=== PATIENT | female | born 1940 | race Caucasian/White ===

== ENCOUNTER 2017-07-26 11:30 | Outpatient (RCR) | payer MEDICARE, SELFPAY ==
--- NOTE | 2017-06-14 17:32 | HP.PTEVAL_ITS ---
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 Date of Evaluation: 06/14/17 Physical Therapist: Eileen Zacarias - Visit Plan Frequency: 2x /Week Duration: 4 Weeks Plan: 2X/ week for 4 weeks for core stability, LE strength, balance activities, gait training, L shoulder strength, postrural exericses with HEP. Will plan on doing Silver Sneakers when done with PT - Subjective Subjective: Pt tripped May 04, 2018 and hit doorknob and got 60 hanna in her head. Were being seen at [facility] for getting her core stronger. She felt that her core was getting stronger and was not having as much back pain. Now since she fell her back is bothering her and her shoulders are bothering her. There is nothing broken, She has 18 screws in L leg from another freak accicent. If she sits down for awhile and then goes to wake up she she has a lot of pain. She still has numbness in her head. She has no leg pain but she has constand pressure in her L leg from previous surgery in 2006. SHe has a fear of tripping on rugs. She feels that her body is in outerspace when she walks. 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 She wants to be stronger and feel better when she walks. She has Silversneakers. She reports that she gets chest tightness when she walks and some SOB. Her PCP just checked her heart. She has FM. Pt lives by herself. Pt reports that her voice is soft, she reports that her legs feel heavy all the time and she just feels tired. She just started taking thyroid meds 2 weeks ago. She has not felt much of a change - Pain backl pain Pain Intensity (Out of 10): 0 - Objective Gait: walks with decreased heel to toe pattern and not as much toe rise. When she turns she scissors and reaches for the wall. FGA: . LE MMT: hip flex B 3+/5, B knee ext 4/5, B knee flex 4-/5, B hip abd 4-/5. Has difficulty with raising her toes. UE AROM: flex and abd to approx 100 degrees B. UE MMT : B ER 4/5, B IR 4/5, B flx 4/5, B abd 4-/5. Negative empty can. Slight + HK for a little pain - Balance Scores Functional Gait Assessment Score: 15 % Disability: 50.0000 - Goals Goal 1:: I HEP Goal Time Frame: 4-6 Weeks Goal 2:: Test pt on the NeuroCOm Goal Time Frame: 4-6 Weeks Goal 3:: Increase LE strength by 1/2 muscle grade (LE MMT: hip flex B 3+/5, B knee ext 4/5, B knee flex 4-/5, B hip abd 4-/5. Has difficulty with raising her toes) Goal Time Frame: 4-6 Weeks Goal 4:: Increase FGA by 5 points to decrease fall risk Goal Time Frame: 4-6 Weeks - Rehabilitation Potential Rehabilitation Potential: Good - Anticipated Interventions Thank you for the opportunity to evaluate your patient. For Medicare and Medicare HMO plans, please review the plan of care and approve it. It will need to be FAXED BACK to us at [phone] for Medicare purposes. Please let me know if there are questions or concerns regarding this plan of care. Physician Signature: Date:
--- NOTE | 2017-07-26 12:51 | HP.PTDCSUM ---
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 Discharge Date: 07/26/17 Please see the following information for a summary of their discharge status. - Subjective Subjective: Pt reports that her back pain is better but she still has trouble sitting for awhile and getting up. Pt reports that stairs are a problem. She reports that her L knee still bothers her since her fall. Pt has an appt with Dr Martinez today. - Pain backl pain Pain Intensity (Out of 10): Unrated L knee pain Pain Intensity (Out of 10): 5 - Overall Improvement % Improvement: 50 - Objective Objective/Function: LE MMT: hip flex LE MMT: hip flex B 4-/5, B knee ext 4/5, B knee flex 4/5, B hip abd 4/5. Improved balance with toe raise and strength. FGA 22 - Goals Goal 1:: I HEP Goal Progress: Goal Met Goal 2:: Test pt on the NeuroCOm Goal Progress: Goal Met Goal 3:: Increase LE strength by 1/2 muscle grade (LE MMT: hip flex B 3+/5, B knee ext 4/5, B knee flex 4-/5, B hip abd 4-/5. Has difficulty with raising her toes) Goal Progress: Goal Met Goal 4:: Increase FGA by 5 points to decrease fall risk Goal Progress: Goal Met Goal 5:: Increase vestibular input on the NeuroCom by 25% to prevent falls. Goal Progress: Goal Met - Plan Plan: DC PT to home exercises. - D/C Information Discharge Comments: DC PT If there are questions or concerns regarding this patient's physical therapy, please feel free to call me at [phone]. Thank you for the referral of this patient. Sincerely, Eileen Zacarias
== END 2017-07-26 19:00 | disposition home or self-care (01) ==
LOC: PT 11:30
PROVIDERS: Family Provider Family Medicine; PCP Family Medicine; Visit Provider Orthopaedic Surgery
DX: M47.26 Other spondylosis with radiculopathy, lumbar region (principal); R26.89 Other abnormalities of gait and mobility; M54.5 Low back pain
CPT/HCPCS: 97110; 97163; 97164; 97530; 97750

== ENCOUNTER 2017-09-06 16:00 | Outpatient (RCR) | payer MEDICARE, SELFPAY ==
--- NOTE | 2017-08-02 19:05 | HP.PTEVAL_ITS ---
Patient's Visit Information ANGELI NICHOLAS is a 77 year old F referred to Physical Therapy by Brian Martinez DR.RMILLE2 with a diagnosis of Pain in L leg and knee. Date of Evaluation: 08/02/17 Physical Therapist: Eileen Zacarias - Visit Plan Frequency: 2x /Week Duration: 4-6 Weeks Plan: 2X/ week for 4-6 weeks for L knee and hip strength, gait training, stairs , curb steps, stretching with HEP and modalities PRN - Subjective Subjective: Pt had L leg fractured 10 years ago at a football game in Feb 2007 where her legs were lassoed together and then she had a TKR in that L leg in May 2008. She has been having problems lately with the knee hurting a lot more and her wrist and LB. Her L knee hurts in sitting and with walking. Yesterday she went between 2 desks and she twisted her leg. She reports that she should be wearing a brace. She points to the ant-lateral knee where the pain huts. She has numbness in the L leg. did an x-ray and it was negative. Stairs are a problems with increase pressure....going up the stairs at home she has to go up one step at a time with railing. She has increas pain when sit to stand out of a chair. Sometimes she reports she gets tingling in the foot about everyother day or 2-3X/ week since last fall which was 05-04-2017. - Pain L knee pain Pain Intensity (Out of 10): 3 Comment: 11/21 walking - Objective L knee AROM: -5 degree from extension to 91 degree L knee flexion. R knee AROM : -2 degrees from full extension to 126 degrees R knee flexion. LE MMT: hip flex B 4/5, B knee ext 4/5, R knee flex 4/5 and L knee flex 4-/5, R hip abd 4/5 and L 4-/5, able to do 1/2 normal ROM bridge. 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 decrease stride length B. Stiars: Able to go up stairs recip with 2 rails and descend stairs with step 2 pattern descending with L leg first to avoid bending L knee. 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 Goal Time Frame: 4-6 Weeks Goal 4:: Be able to walk with normal gait pattern without any pain Goal Time Frame: 4-6 Weeks - Rehabilitation Potential Rehabilitation Potential: Good - Anticipated Interventions Patient/Client Instruction: Educate patient on: Plan of Care For the Purpose of:: To decrease pain, To decrease swelling/inflammation, To increase ROM, To improve nutrient delivery to tissue, To improve muscle performance and motor function, To improve ability to perform ADL's, To increase tolerance to activity/condition/position, To improve performance and independence with ADL's, To improve gait and locomotor functions, To improve health of tissue, To decrease soft tissue restriction, To increase flexibility/ ROM Therapeutic Exercise to Include: Strength training, Flexibilty training, Gait and locomotor training, Passive ROM, Active ROM For the Purpose of:: To decrease pain, To decrease swelling/inflammation, To increase ROM, To improve nutrient delivery to tissue, To increase oxygenation perfusion, To improve muscle performance and motor function, To improve ability to perform ADL's, To increase tolerance to activity/condition/position, To improve performance and independence with ADL's, To improve ability of physical actions for home/community/work/leisure, To improve gait and locomotor functions , To improve health of tissue, To decrease soft tissue restriction, To increase flexibility/ROM Functional Training to Include: Gait training For the Purpose of:: To improve gait and locomotor functions, To improve safety with gait Manual Therapy Techniques to Include: Passive ROM, Soft tissue mobilization For the Purpose of:: To decrease pain, To decrease swelling/inflammation, To increase ROM, To improve nutrient delivery to tissue, To improve ability to perform ADL's IF ES: Yes Cryotherapy (ice pack, ice massage): Yes Ultrasound (thermal/non thermal): Yes For the Purpose of:: To decrease pain, To decrease swelling/inflammation, To increase ROM, To improve nutrient delivery to tissue Thank you for the opportunity to evaluate your patient. For Medicare and Medicare HMO plans, please review the plan of care and approve it. It will need to be FAXED BACK to us at [phone] for Medicare purposes. Please let me know if there are questions or concerns regarding this plan of care. Physician Signature: Date:
--- NOTE | 2017-09-06 19:16 | HP.PTREVAL_ITS ---
Brian Martinez, It has been my pleasure to treat ANGELI NICHOLAS over the last 8 visits for Pain in L leg and knee. Please see the progress note below for an update on the physical therapy plan of care! Subjective: Pt reports that bending to go down the stairs he knee hurts and it seems really tight. The pain is not as severe as what it was. Pt is now complaining of L shoulder pain. She has been having chest tightness and notices it more with walking and she slows down and breathes and it helps when she gets into the hottub. She has had chest pain before and it was going away and then she fell and then it has been back since. She saw Dr Carrion and she did an EKG that day and it was fine. She has an stress test on September 18 . Also pt was teary eyed and talke about hating living alone and son , and and she found the him 15 years ago. Pt feels that her knee and leg are about 50% better. Pt complains of back pain everytime she has sat for a long time and goes to get up she has the pain and it feels like stabbing pain and aches. After she walks around for awhile it goes away. Pt feels like her knees are going to collapse when she walks a distance (short distances). She reports that her hands have started to swell this week. She reports that she gets swelling in her ankles when she has socks on. Pt was 10 min late for appointment and in tears cause she lives alone and is in pain and having all kind of symptoms. Objective/Function: No temors noted Plan Plan: Pt to call in next mon after Dr bunch. 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 Goal Time Frame: 4-6 Weeks Goal 4:: Be able to walk with normal gait pattern without any pain Goal Time Frame: 4-6 Weeks Anticipated Interventions Patient/Client Instruction: Educate patient on: Plan of Care For the Purpose of:: To decrease pain, To decrease swelling/inflammation, To increase ROM, To improve nutrient delivery to tissue, To improve muscle performance and motor function, To improve ability to perform ADL's, To increase tolerance to activity/condition/position, To improve performance and independence with ADL's, To improve gait and locomotor functions, To improve health of tissue, To decrease soft tissue restriction, To increase flexibility/ ROM Therapeutic Exercise to Include: Strength training, Flexibilty training, Gait and locomotor training, Passive ROM, Active ROM For the Purpose of:: To decrease pain, To decrease swelling/inflammation, To increase ROM, To improve nutrient delivery to tissue, To increase oxygenation perfusion, To improve muscle performance and motor function, To improve ability to perform ADL's, To increase tolerance to activity/condition/position, To improve performance and independence with ADL's, To improve ability of physical actions for home/community/work/leisure, To improve gait and locomotor functions , To improve health of tissue, To decrease soft tissue restriction, To increase flexibility/ROM Functional Training to Include: Gait training For the Purpose of:: To improve gait and locomotor functions, To improve safety with gait Manual Therapy Techniques to Include: Passive ROM, Soft tissue mobilization For the Purpose of:: To decrease pain, To decrease swelling/inflammation, To increase ROM, To improve nutrient delivery to tissue, To improve ability to perform ADL's IF ES: Yes Cryotherapy (ice pack, ice massage): Yes Ultrasound (thermal/non thermal): Yes For the Purpose of:: To decrease pain, To decrease swelling/inflammation, To increase ROM, To improve nutrient delivery to tissue Please do not hesitate to contact me at [phone] by phone or Fax: if you have questions or concerns regarding this new plan of care! Sincerely, Eileen Zacarias
--- NOTE | 2017-09-19 14:21 | HP.PTDCSUM ---
HP - PT D/C Summary It has been my pleasure to treat ANGELI NICHOLAS under orders from Brian Martinez, for the diagnosis of Pain in L leg and knee for a total of 8 visit(s). Discharge Date: 09/19/17 Please see the following information for a summary of their discharge status. - Subjective Subjective: Pt reports that bending to go down the stairs he knee hurts and it seems really tight. The pain is not as severe as what it was. Pt is now complaining of L shoulder pain. She has been having chest tightness and notices it more with walking and she slows down and breathes and it helps when she gets into the hottub. She has had chest pain before and it was going away and then she fell and then it has been back since. She saw Dr Carrion and she did an EKG that day and it was fine. She has an stress test on September 18 . Also pt was teary eyed and talke about hating living alone and son , and and she found the him 15 years ago. Pt feels that her knee and leg are about 50% better. Pt complains of back pain everytime she has sat for a long time and goes to get up she has the pain and it feels like stabbing pain and aches. After she walks around for awhile it goes away. Pt feels like her knees are going to collapse when she walks a distance (short distances). She reports that her hands have started to swell this week. She reports that she gets swelling in her ankles when she has socks on. Pt was 10 min late for appointment and in tears cause she lives alone and is in pain and having all kind of symptoms. 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 Goal Progress: Progressing Goal 4:: Be able to walk with normal gait pattern without any pain - Plan Plan: Pt to call in next wed after Dr massey - D/C Information Discharge Comments: DC PT If there are questions or concerns regarding this patient's physical therapy, please feel free to call me at [phone]. Thank you for the referral of this patient. Sincerely, Eileen Zacarias
== END 2017-09-06 19:00 | disposition home or self-care (01) ==
LOC: PT 16:00
PROVIDERS: Family Provider Family Medicine; PCP Family Medicine; Visit Provider Orthopaedic Surgery
DX: M25.562 Pain in left knee (principal); M79.605 Pain in left leg
CPT/HCPCS: 97110; 97161; 97530

== ENCOUNTER → 2017-09-11 16:56 | Outpatient (CLI) | payer MEDICARE, SELFPAY ==
[2017-09-11 19:15] LABS: Thyroid Stim Hormone (TSH) 2.62 uIU/mL (0.358-3.74)
== END ==
PROVIDERS: Family Provider Family Medicine; PCP Family Medicine; Visit Provider Family Medicine
DX: E03.9 Hypothyroidism, unspecified (principal)
CPT/HCPCS: 36415; 84443

== ENCOUNTER 2017-09-15 21:02 | Inpatient (IN) | payer MEDICARE, SELFPAY ==
[2017-09-15] VITALS (8 sets, daily range): BP systolic 110–146; BP diastolic 67–87; PULSE 63–110; RESP 18–22; TEMP 36.5; O2SAT 95–99; BMI 29.2
--- NOTE | 2017-09-15 21:47 | RAD_ITS ---
STUDY: X-RAY CHEST REASON FOR EXAM: Female, 77 years old. Chest pain TECHNIQUE: A single frontal view of the chest was obtained. COMPARISON: February 10, 2016 FINDINGS: The lungs are underaerated. There are minimal increased markings in both lung bases. There is no demonstrated pleural abnormality. There is mild enlargement of the cardiac silhouette. The mediastinum and hilar regions are unremarkable. The central vessels are increased. There is atherosclerotic calcification of the thoracic aorta. There are diffuse degenerative changes of the visualized spine. There is dextroscoliosis of the thoracic spine. There are degenerative changes in both shoulders. There is no demonstrated abnormality of the visualized upper abdomen. RAD/Chest 1 View (Portable) IMPRESSION: There is mild enlargement of the cardiac silhouette with mild edema. There is no obvious effusion. There is minimal bibasilar atelectasis. Electronically Signed: Keri Freire MD at 22:16 EDT Tel Direct: [phone], Service support ,
--- NOTE | 2017-09-15 21:47 | EKG12_ITS ---
Test Reason : CP Blood Pressure : / mmHG Vent. Rate : 083 BPM Atrial Rate : 075 BPM P-R Int : 152 ms QRS Dur : 088 ms QT Int : 386 ms P-R-T Axes : 076 007 036 degrees QTc Int : 453 ms Sinus rhythm with marked sinus arrhythmia Nonspecific ST abnormality Abnormal ECG Confirmed by ISAEL RAMSAY, ZANE ([id number]), script editor WENDY WILLOUGHBY ([id number]) on 09/18/2017 2:18:08 PM Referred By: LENARD Confirmed By:ZANE KIRKLAND MD
[2017-09-15 22:07] LABS: Absolute Lymphocyte Count 1.56 X10^3/ul (0.83-4.51); Absolute Neutrophil Count 9.8 X10^3/uL (2.0-7.7); Basophil# 0.03 X10^3/uL; Basophil% 0.2 % (0-1); Eosinophil# 0.21 X10^3/uL; Eosinophils% 1.7 % (0-5); Hematocrit 33.8 % (37-47); Hemoglobin 10.8 g/dl (12.0-15.0); Lymphocyte # 1.56 X10^3/ul (4.0); Lymphocyte % 12.9 % (19-41); Mean Corpuscular Hgb 26.5 pg (27.0-32.0); Mean Corpuscular Volume 82.8 fL (81-99); Mean Platelet Vol. 11.1 fl (6.2-12.0); Monocyte# 0.52 X10^3/uL; Monocyte% 4.3 % (0-10); Neutrophil # 9.78 X10^3/uL (2.7-7.7); Neutrophil % 80.8 % (47-70); Platelet Count 211 K/mm3 (150-450); RBC Distribution Width CV 14.6 % (11.6-14.6); RBC Distribution Width SD 44.3 fl (35.1-43.9); Red Blood Count 4.08 M/mm3 (4.2-5.4); White Blood Count 12.1 K/mm3 (4.4-11.0)
[2017-09-15 22:08] LABS: POSITIVE COUNT NO; POSITIVE DIFFERENTIAL NO; POSITIVE MORPHOLOGY NO
[2017-09-15 22:20] LABS: Anion Gap 9 (5-15); BUN 20 mg/dL (7-18); Calcium,Total 8.8 mg/dL (8.5-10.1); Chloride 110 mmol/L (98-107); Creatinine, Serum 0.87 mg/dL (0.55-1.02); EST Glomerular Filtration Rate 67 mL/min (>60); Est Glom Filt Rate - Afr Amer 82 mL/min (>60); Estimated Creatinine Clearance 43.51 ml/min; Glucose 147 mg/dL (74-106); Potassium 3.3 mmol/L (3.5-5.1); Sodium Level 142 mmol/L (136-145)
--- NOTE | 2017-09-15 22:42 | EKG12_ITS ---
Test Reason : REPEAT Blood Pressure : / mmHG Vent. Rate : 087 BPM Atrial Rate : 136 BPM P-R Int : 000 ms QRS Dur : 084 ms QT Int : 380 ms P-R-T Axes : 000 -17 024 degrees QTc Int : 457 ms Atrial fibrillation Septal infarct , age undetermined Abnormal ECG Confirmed by ISAEL RAMSAY, ZANE ([id number]), state editor WENDY WILLOUGHBY ([id number]) on 09/18/2017 2:18:24 PM Referred By: TAYO Confirmed By:ZANE KIRKLAND MD
[2017-09-15] MEDS: Furosemide 40 MG/4 ML Vial IV (22:51)
--- NOTE | 2017-09-15 23:10 | ED.VISSUMM ---
- ER Visit Summary Date of Service: 09/15/17 Chief Complaint: Chest pain History of Present Illness: The patient is a 77 F who presents with chest pain. She states that she had a mechanical fall. She states that she just missed the handle and fell backwards into a wall. She states she hit her head and back on the wall and then slid down into a seated position. Afterwards she began to have substernal chest pain which she describes as heavy and severe. She believes this is related to anxiety. No associated vomiting diaphoresis or shortness of breath but she does feel nauseated. She was scheduled for a stress test on Monday. Physical Examination: Afebrile vitals stable Moist mucous membranes Heart regular rate and rhythm Lungs are clear Abdomen soft Extremities nontender 2+ radial pulses no edema Alert Test Results: Initial EKG appeared to be sinus arrhythmia with PACs. Repeat EKG shows atrial fibrillation. Laboratory studies returned notable for troponin of 0.29. Chest x-ray shows mild enlargement of the cardiac silhouette with mild edema no effusions. Emergency Department Course and Treatment: Patient received aspirin and 1 sublingual nitroglycerin by EMS. She was given additional sublingual nitroglycerin here with mild improvement of symptoms. She was then started on nitroglycerin drip. She was also given IV Lasix for mild pulmonary edema. She was given subcutaneous Lovenox. She was discussed with Dr. Das and admitted under the medical hospitalist service. Treatment Plan: [] Disposition: Admit Impression: Acute coronary syndrome This note was generated with [employer] dictation software. It may contain incorrect words, spelling, and punctuation that were not noted in review of the chart prior to signing ED Disposition - Plan for ED Patient: Chief Complaint: Chest Pain Referrals: Vivi Carrion MD [Primary Care Provider] -
--- NOTE | 2017-09-15 23:26 | PCM.HP.STD ---
Problem List (1) DDD (degenerative disc disease), lumbar Status: Chronic (2) Hypertension Status: Chronic Qualifiers: (3) Hyperlipidemia Status: Chronic Qualifiers: (4) CAD (coronary artery disease) Status: Chronic Qualifiers: History of Present Illness Date of Admission: 09/15/17 Chief Complaint: Fall, chest pain. The patient is a 77 year old F with past medical history as mentioned above presented to the emergency room because of fall and chest pain. This evening, she was coming back home and she tried to catch the door in the garage, lost her balance and she fell backwards. She mentioned that she fell on the back of her head as well as her left elbow. She denies any significant trauma or pain of the left elbow. Shortly after, she started having retrosternal chest pain, described as chest pressure, 7 out of 10 in severity, not radiating, associated with nausea and mild shortness of breath, lasted until she arrived to the emergency room and she is still having chest pain at this time. Before the fall, she denied dizziness, lightheadedness, chest pain, palpitation, syncope or presyncope. In the emergency department, her heart rate has been fluctuating anywhere from 110 down to 60s, blood pressure was stable. Pulse ox was 95% on room air. Routine blood work is remarkable for mild leukocytosis, hemoglobin of 10.8 g/dL, potassium of 3.3. Her troponin is 0.29. She had 2 EKGs done in the ER. One EKG revealed sinus rhythm with ST segment depression in leads II and III. Another EKG revealed A. fib, heart rate was in the 90s and again revealed ST segment depression in leads II and III. Chest x-ray revealed mild cardiomegaly, probable bilateral basilar atelectasis. She was given 1 dose of therapeutic Lovenox and started on IV nitroglycerin drip in the ER. She is being admitted for borderline elevated troponin with questionable EKG changes probably due to acute non-ST elevation VT. Past Medical History Past Medical History (Chronic Problems): Chronic Problems (Last Reviewed 09/11/17 @ 15:48 by Lolita Woodson) DDD (degenerative disc disease), lumbar (Chronic) Other chest pain (Chronic) Abnormal stress test (Chronic) Hypertension (Chronic) Hyperlipidemia (Chronic) Other senior care (current) drug therapy (Chronic) CAD (coronary artery disease) (Chronic) Allergies codeine Allergy (Verified 09/15/17 21:04) Other oxycodone HCl [From OxyContin] Allergy (Verified 09/15/17 21:04) Other Home Medications: Ambulatory Orders Medication Instructions Recorded Aspirin [Adult Low Dose Aspirin EC] 81 mg PO DAILY 02/22/16 atorvastatin 20 mg tablet 20 mg PO QHS #90 tab 06/30/17 lisinopril 20 mg tablet 20 mg PO DAILY #90 tab 06/30/17 Levothyroxine [Synthroid] 25 mcg PO DAILY 09/15/17 Surgical History: appendectomy, total knee arthroplasty, - - section. Psychiatric History: Anxiety RHIT History: No pertinent RHIT history Lives: Alone Smoking Status: Never smoker Alcohol: None Drugs: None - *Family History Maternal History Items: No pertinent history Paternal History Items: No pertinent history Review of Systems Constitutional: Denies: Anorexia, Chills, Fever, Weakness Eyes: Denies: Blurred vision, Double vision, Drainage, Redness HEENT: Denies: Difficulty Hearing, Ear Pain, Eye Pain, Nasal Congestion, Sore Throat Cardiovascular: Reports: Chest Pain, Chest Pressure. Denies: Heaviness, Light Headedness, Palpitations, Paroxysmal Noc. Dyspnea, Syncope Respiratory: Reports: Shortness of Breath. Denies: Cough, Hemoptysis, Pleuritic Pain, Sputum production, Wheezing Gastrointestinal: Reports: Nausea. Denies: Abdominal Pain, Constipation, Diarrhea, Vomiting Genitourinary: Denies: Dysuria, Frequency, Hematuria Musculoskeletal: Denies: Arm Pain, Back Pain, Foot Pain Skin: Denies: Dryness, Rash Neurological: Denies: Balance problems, Double vision, Change in Speech, Slurred speech, Confusion, Headaches, Incoordination, Numbness, Tingling Psychiatric: Reports: Anxiety. Denies: Depression Endocrine: Denies: Change in Body Habitus, Polydipsia VTE Information - Inpt Only VTE Present on Admission: No VTE Mechan Device Prophylaxis: None VTE Pharm Prophylaxis ordered?: Yes - Physical Exam General: Alert, Oriented x3, Cooperative, No apparent distress HEENT: Atraumatic, PERRLA, EOMI Oral: Moist Mucosa, No Gingival or Mucosal Lesions/ Ulcerations Neck: Supple, No JVD, Negative Carotid Bruits, Trachea Midline, Thyroid Normal Size and Texture Lungs: Clear to auscultation, No rhonchi, No wheeze, No rales, Diminished Cardiovascular: Normal S1, Normal S2, No murmurs, PMI Normal, Irregular Rate Abdomen: Bowel Sounds Present, Soft, Non Tender, Non-Distended, No Hepato-splenomegaly Extremities: No clubbing, No cyanosis, Edema - Trace edema. Skin: No rashes, No breakdown Lymphatic: No Cervical, Supraclavicular, or Inguinal Adenopathy Neurological: Cranial nerves II-XII grossly intact, Motor Exam 5/5 strength throughout Psych/Mental Status: Normal Affect, Anxious, Alert and oriented to time, place, person, mood and affect Vital Signs Temp Pulse Resp BP Pulse Ox 97.7 F L 66 22 H 118/75 95 09/15/17 21:04 09/15/17 22:51 09/15/17 22:38 09/15/17 22:51 09/15/17 22:38 Oxygen Flow Rate (L/min) 2 Oxygen Delivery Method Nasal Cannula Weight: 160 lb Body Mass Index (BMI) 29.2 Laboratory Tests Past 24 Hrs 09/15/17 09/15/17 21:40 21:40 WBC 12.1 H RBC 4.08 L Hgb 10.8 L Hct 33.8 L MCV 82.8 MCH 26.5 L MCHC 32.0 RDW 14.6 RDW Differential 44.3 H Plt Count 211 MPV 11.1 Immature Gran % (Auto) 0.100 Neut % (Auto) 80.8 H Lymph % (Auto) 12.9 L [place] % (Auto) 4.3 Eos % (Auto) 1.7 Baso % (Auto) 0.2 Absolute Neuts (auto) 9.8 H Absolute Lymphs (auto) 1.56 Total Counted Not Reportable Sodium 142 Potassium 3.3 L Chloride 110 H Carbon Dioxide 23.0 Anion Gap 9 BUN 20 H Creatinine 0.87 Estim Creat Clear Calc 43.51 Est GFR (MDRD) Af Amer 82 Est GFR (MDRD) Non-Af 67 BUN/Creatinine Ratio 23.0 H Glucose 147 H Calcium 8.8 Troponin I 0.29 H Clinical Impression(s) from Imaging Studies Chest X-Ray 09/15/17 21:47 IMPRESSION: There is mild enlargement of the cardiac silhouette with mild edema. There is no obvious effusion. There is minimal bibasilar atelectasis. Electronically Signed: Keri Freire MD at 22:16 EDT Tel Direct: [phone], Service support , Assessment/Plan This is a 77 years old female patient presented to the emergency room because of fall followed by chest pain/pressure, found to have borderline elevated troponin as well as ST segment depression in leads II and III on EKG and she is being admitted for acute non-ST elevation VT. #1 acute non-ST elevation VT: EKG reviewed, revealed sinus rhythm with ST segment depression in leads II, I, III. Another EKG revealed A. fib. Heart rate has been fluctuating between 110 down to 60s. Blood pressure stable. It is not clear if the patient had a history of A. fib in the past or now. Troponin is 0.29. Patient is still having chest pain at this time. She was started on IV nitroglycerin drip, received 1 dose of therapeutic Lovenox. She had cardiac catheterization back in February, that revealed minimal coronary artery disease with normal ejection fraction and there was no intervention is needed. Plan: Admit to PCU, cardiac monitoring, serial cardiac enzymes, repeat EKG tomorrow morning, continue aspirin, statins and lisinopril, start metoprolol, 2D echocardiogram, cardiology consult, continue IV hydration drip. #2 fall: Without evidence of significant trauma. At this time, she denies any significant pain. No evidence of head trauma. #3 hypokalemia: Plan to replace potassium with IV fluids, repeat BMP tomorrow, check serum magnesium. #4 CAD: Without prior history of interventions, no stents or bypass surgery. Plan as above, continue aspirin, statins, lisinopril, start metoprolol. #5 hypertension: Blood pressure stable, continue lisinopril, start metoprolol as above. #6 hyperlipidemia: Continue Lipitor. #7 hypothyroidism: Continue levothyroxine. #8 DVT prophylaxis: Subcu Lovenox. This note was generated with Boombot[employer]ation software. It may contain incorrect words, spelling, and punctuation that were not noted in checking the note before signing. Code Visit Inpatient E&M: 52670 Init Hosp L3
[2017-09-15] MEDS: Enoxaparin 80 MG/0.8 ML Syringe 70 MG SC (23:34)
[2017-09-15] MEDS: Acetaminophen 325 MG Tablet 650 MG PO (23:34)
[2017-09-15] MEDS: Ondansetron 4 MG/2 ML Vial IV (23:34)
--- NOTE | 2017-09-15 23:34 | HP.PCM_ITS ---
Problem List (1) DDD (degenerative disc disease), lumbar Status: Chronic (2) Hypertension Status: Chronic Qualifiers: (3) Hyperlipidemia Status: Chronic Qualifiers: (4) CAD (coronary artery disease) Status: Chronic Qualifiers: History of Present Illness Date of Admission: 09/15/17 Chief Complaint: Fall, chest pain. The patient is a 77 year old F with past medical history as mentioned above presented to the emergency room because of fall and chest pain. This evening, she was coming back home and she tried to catch the door in the garage, lost her balance and she fell backwards. She mentioned that she fell on the back of her head as well as her left elbow. She denies any significant trauma or pain of the left elbow. Shortly after, she started having retrosternal chest pain, described as chest pressure, 7 out of 10 in severity, not radiating, associated with nausea and mild shortness of breath, lasted until she arrived to the emergency room and she is still having chest pain at this time. Before the fall , she denied dizziness, lightheadedness, chest pain, palpitation, syncope or presyncope. In the emergency department, her heart rate has been fluctuating anywhere from 110 down to 60s, blood pressure was stable. Pulse ox was 95% on room air. Routine blood work is remarkable for mild leukocytosis, hemoglobin of 10.8 g/dL, potassium of 3.3. Her troponin is 0.29. She had 2 EKGs done in the ER. One EKG revealed sinus rhythm with ST segment depression in leads II and III. Another EKG revealed A. fib, heart rate was in the 90s and again revealed ST segment depression in leads II and III. Chest x-ray revealed mild cardiomegaly, probable bilateral basilar atelectasis. She was given 1 dose of therapeutic Lovenox and started on IV nitroglycerin drip in the ER. She is being admitted for borderline elevated troponin with questionable EKG changes probably due to acute non-ST elevation OK. Past Medical History Past Medical History (Chronic Problems): Chronic Problems (Last Reviewed 09/11/17 @ 15:48 by Lolita Woodson) DDD (degenerative disc disease), lumbar (Chronic) Other chest pain (Chronic) Abnormal stress test (Chronic) Hypertension (Chronic) Hyperlipidemia (Chronic) Other [facility] (current) drug therapy (Chronic) CAD (coronary artery disease) (Chronic) Allergies codeine Allergy (Verified 09/15/17 21:04) Other oxycodone HCl [From OxyContin] Allergy (Verified 09/15/17 21:04) Other Home Medications: Ambulatory Orders Medication Instructions Recorded Aspirin [Adult Low Dose Aspirin EC] 81 mg PO DAILY 02/22/16 atorvastatin 20 mg tablet 20 mg PO QHS #90 tab 06/30/17 lisinopril 20 mg tablet 20 mg PO DAILY #90 tab 06/30/17 Levothyroxine [Synthroid] 25 mcg PO DAILY 09/15/17 Surgical History: appendectomy, total knee arthroplasty, - - section. 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 Denies: Heaviness, Light Headedness, Palpitations, Paroxysmal Noc. Dyspnea, Syncope Respiratory: Reports: Shortness of Breath. Denies: Cough, Hemoptysis, Pleuritic Pain, Sputum production, Wheezing Gastrointestinal: Reports: Nausea. Denies: Abdominal Pain, Constipation, Diarrhea, Vomiting Genitourinary: Denies: Dysuria, Frequency, Hematuria Musculoskeletal: Denies: Arm Pain, Back Pain, Foot Pain Skin: Denies: Dryness, Rash Neurological: Denies: Balance problems, Double vision, Change in Speech, Slurred speech, Confusion, Headaches, Incoordination, Numbness, Tingling Psychiatric: Reports: Anxiety. Denies: Depression Endocrine: Denies: Change in Body Habitus, Polydipsia VTE Information - Inpt Only VTE Present on Admission: No VTE Mechan Device Prophylaxis: None VTE Pharm Prophylaxis ordered?: Yes - Physical Exam General: Alert, Oriented x3, Cooperative, No apparent distress HEENT: Atraumatic, PERRLA, EOMI Oral: Moist Mucosa, No Gingival or Mucosal Lesions/ Ulcerations Neck: Supple, No JVD, Negative Carotid Bruits, Trachea Midline, Thyroid Normal Size and Texture Lungs: Clear to auscultation, No rhonchi, No wheeze, No rales, Diminished Cardiovascular: Normal S1, Normal S2, No murmurs, PMI Normal, Irregular Rate Abdomen: Bowel Sounds Present, Soft, Non Tender, Non-Distended, No Hepato- splenomegaly Extremities: No clubbing, No cyanosis, Edema - Trace edema. Skin: No rashes, No breakdown Lymphatic: No Cervical, Supraclavicular, or Inguinal Adenopathy Neurological: Cranial nerves II-XII grossly intact, Motor Exam 5/5 strength throughout Psych/Mental Status: Normal Affect, Anxious, Alert and oriented to time, place, person, mood and affect Vital Signs Temp Pulse Resp BP Pulse Ox 97.7 F L 66 22 H 118/75 95 09/15/17 21:04 09/15/17 22:51 09/15/17 22:38 09/15/17 22:51 09/15/17 22:38 Oxygen Flow Rate (L/min) 2 Oxygen Delivery Method Nasal Cannula Weight: 160 lb Body Mass Index (BMI) 29.2 Laboratory Tests Past 24 Hrs 09/15/17 09/15/17 21:40 21:40 WBC 12.1 H RBC 4.08 L Hgb 10.8 L Hct 33.8 L MCV 82.8 MCH 26.5 L MCHC 32.0 RDW 14.6 RDW Differential 44.3 H Plt Count 211 MPV 11.1 Immature Gran % (Auto) 0.100 Neut % (Auto) 80.8 H Lymph % (Auto) 12.9 L [place] % (Auto) 4.3 Eos % (Auto) 1.7 Baso % (Auto) 0.2 Absolute Neuts (auto) 9.8 H Absolute Lymphs (auto) 1.56 Total Counted Not Reportable Sodium 142 Potassium 3.3 L Chloride 110 H Carbon Dioxide 23.0 Anion Gap 9 BUN 20 H Creatinine 0.87 Estim Creat Clear Calc 43.51 Est GFR (MDRD) Af Amer 82 Est GFR (MDRD) Non-Af 67 BUN/Creatinine Ratio 23.0 H Glucose 147 H Calcium 8.8 Troponin I 0.29 H Clinical Impression(s) from Imaging Studies Chest X-Ray 09/15/17 21:47 IMPRESSION: There is mild enlargement of the cardiac silhouette with mild edema. There is no obvious effusion. There is minimal bibasilar atelectasis. Electronically Signed: Keri Freire MD at 22:16 EDT Tel Direct: [phone], Service support , Assessment/Plan This is a 77 years old female patient presented to the emergency room because of fall followed by chest pain/pressure, found to have borderline elevated troponin as well as ST segment depression in leads II and III on EKG and she is being admitted for acute non-ST elevation OK. #1 acute non-ST elevation OK: EKG reviewed, revealed sinus rhythm with ST segment depression in leads II, I, III. Another EKG revealed A. fib. Heart rate has been fluctuating between 110 down to 60s. Blood pressure stable. It is not clear if the patient had a history of A. fib in the past or now. Troponin is 0.29. Patient is still having chest pain at this time. She was started on IV nitroglycerin drip, received 1 dose of therapeutic Lovenox. She had cardiac catheterization back in February, that revealed minimal coronary artery disease with normal ejection fraction and there was no intervention is needed. Plan: Admit to PCU, cardiac monitoring, serial cardiac enzymes, repeat EKG tomorrow morning, continue aspirin, statins and lisinopril, start metoprolol, 2D echocardiogram, cardiology consult, continue IV hydration drip. #2 fall: Without evidence of significant trauma. At this time, she denies any significant pain. No evidence of head trauma. #3 hypokalemia: Plan to replace potassium with IV fluids, repeat BMP tomorrow, check serum magnesium. #4 CAD: Without prior history of interventions, no stents or bypass surgery. Plan as above, continue aspirin, statins, lisinopril, start metoprolol. #5 hypertension: Blood pressure stable, continue lisinopril, start metoprolol as above. #6 hyperlipidemia: Continue Lipitor. #7 hypothyroidism: Continue levothyroxine. #8 DVT prophylaxis: Subcu Lovenox. This note was generated with [employer] software. It may contain incorrect words, spelling, and punctuation that were not noted in checking the note before signing. Code Visit Inpatient E&M: 02810 Init Hosp L3
--- NOTE | 2017-09-15 23:54 | ECHOD_ITS ---
Reason For Study: NSTEMI Procedure This was a 2D Doppler, Color Flow transthoracic echocardiogram. Exam performed portable in patient room. Left Ventricle Normal LV size. The estimated ejection fraction is 20 %. Severe segmental systolic dysfunction (see wall motion). Transmitral diastolic flow velocities suggest severe (stage 3) diastolic dysfunction. [place] : Akinetic. Mid-Anterior : Akinetic. Right Ventricle Normal RV size. Normal systolic function. Atria The left atrium is moderately enlarged. Normal right atrium. Mitral Valve Normal mitral valve. Mild (1+) eccentric mitral valve insufficiency. Tricuspid Valve Normal tricuspid valve. Mild to moderate (1-2+) tricuspid valve insufficiency. Pulmonary artery systolic pressure is 48 mmHg. Mild pulmonary hypertension. Aortic Valve Trisinus/trileaflet aortic valve. Mild focal aortic valve calcification. Mild (1+) eccentric aortic valve insufficiency. Pulmonic Valve Normal pulmonic valve. Mild (1+) pulmonic valve insufficiency. Great Vessels Normal aortic root. The pulmonary artery is normal size. Normal inferior vena cava. Pericardium/Pleural No pericardial effusion. MMode/2D Measurements & Calculations LVIDd: 4.6 cm IVSd: 0.98 cm Ao root diam: 3.1 cm LVIDs: 2.8 cm LVPWd: 0.88 cm RVDd: 3.5 cm FS: 39.5 % LAV(MOD-bp): 75.8 ml LA A4 area: 23.1 cm2 RA A4 area: 18.9 cm2 LAV(MOD-bp) Indexed: 43.2 ml/m2 LAV(MOD-sp2): 78.3 ml LAV(MOD-sp4): 74.0 ml Doppler Measurements & Calculations MV E max david: 85.7 cm/sec Lat Peak E' David: 5.9 cm/sec Med Peak E' David: 3.9 cm/sec MV A max david: 40.4 cm/sec E/E' lat: 14.4 E/E' med: 22.1 MV E/A: 2.1 Ao V2 max: 138.9 cm/sec AI max david: 346.4 cm/sec LV V1 max: 87.2 cm/sec Ao max P.7 mmHg AI max P.0 mmHg LV V1 max P.0 mmHg AI dec slope: 181.4 cm/sec2 AI P1/2t: 559.3 msec PA V2 max: 85.4 cm/sec TR max david: 327.3 cm/sec TR max P.1 mmHg Interpretation Summary Normal LV size. The estimated ejection fraction is 20 %. Severe segmental systolic dysfunction (see wall motion). Transmitral diastolic flow velocities suggest severe (stage 3) diastolic dysfunction The left atrium is moderately enlarged. Mild pulmonary hypertension. Compared to prior study, changes are noted. Ordering Physician: Natasha Salomon Referring Physician: Vivi Carrion Performed By: Ashli Green RDCS
[2017-09-16] VITALS (55 sets, daily range): BP systolic 99–156; BP diastolic 63–95; PULSE 76–138; RESP 12–32; TEMP 36.6–37.8; O2SAT 81–125; BMI 29.9
[2017-09-16 00:08] LABS: Magnesium 1.8 mg/dL (1.6-2.6)
[2017-09-16 00:34] LABS: BNP,B-Type NATRIURETIC PEPTIDE 238.2 pg/mL (0-100)
[2017-09-16] MEDS: Metoprolol Tartrate 25 MG Tablet PO (05:49)
[2017-09-16] MEDS: Levothyroxine 25 MCG TABLET PO (05:49)
[2017-09-16] MEDS: Lisinopril 20 MG Tablet PO (05:49)
[2017-09-16] MEDS: Aspirin E.C. 81 MG Tablet PO (05:50)
--- NOTE | 2017-09-16 05:55 | EKG12_ITS ---
Test Reason : AM EKG Blood Pressure : / mmHG Vent. Rate : 124 BPM Atrial Rate : 124 BPM P-R Int : 128 ms QRS Dur : 088 ms QT Int : 358 ms P-R-T Axes : 055 002 021 degrees QTc Int : 514 ms Sinus tachycardia Nonspecific ST abnormality Abnormal ECG When compared with ECG of 15-SEP-2017 22:48, MANUAL COMPARISON REQUIRED, DATA IS UNCONFIRMED Confirmed by ISAEL RAMSAY, ZANE ([id number]), newspaper editor managing WENDY WILLOUGHBY ([id number]) on 09/20/2017 2:29:14 PM Referred By: DR HART Confirmed By:ZANE KIRKLAND MD
[2017-09-16 06:19] LABS: International Normalized Ratio 1.1; Prothrombin Time (Protime)PT. 14.6 SECONDS (11.7-14.9)
[2017-09-16 06:20] LABS: Absolute Lymphocyte Count 1.01 X10^3/ul (0.83-4.51); Absolute Neutrophil Count 7.5 X10^3/uL (2.0-7.7); Basophil# 0.01 X10^3/uL; Basophil% 0.1 % (0-1); Eosinophil# 0.01 X10^3/uL; Eosinophils% 0.1 % (0-5); Hematocrit 32.7 % (37-47); Hemoglobin 10.3 g/dl (12.0-15.0); Lymphocyte # 1.01 X10^3/ul (4.0); Lymphocyte % 11.4 % (19-41); Mean Corp Hgb Conc 31.5 g/gl (32-36); Mean Corpuscular Hgb 26.1 pg (27.0-32.0); Mean Corpuscular Volume 82.8 fL (81-99); Mean Platelet Vol. 10.7 fl (6.2-12.0); Monocyte# 0.28 X10^3/uL; Monocyte% 3.2 % (0-10); Neutrophil # 7.54 X10^3/uL (2.7-7.7); Neutrophil % 85.1 % (47-70); Platelet Count 198 K/mm3 (150-450); RBC Distribution Width CV 14.6 % (11.6-14.6); RBC Distribution Width SD 44.5 fl (35.1-43.9); Red Blood Count 3.95 M/mm3 (4.2-5.4); White Blood Count 8.9 K/mm3 (4.4-11.0)
[2017-09-16 06:41] LABS: Anion Gap 9 (5-15); BUN 19 mg/dL (7-18); BUN/Creat Ratio 19.7 RATIO (10-20); Calcium,Total 8.5 mg/dL (8.5-10.1); Chloride 110 mmol/L (98-107); Creatinine, Serum 0.96 mg/dL (0.55-1.02); EST Glomerular Filtration Rate 60 mL/min (>60); Est Glom Filt Rate - Afr Amer 72 mL/min (>60); Estimated Creatinine Clearance 39.43 ml/min; Glucose 120 mg/dL (74-106); Potassium 3.6 mmol/L (3.5-5.1); Sodium Level 143 mmol/L (136-145)
[2017-09-16 06:50] LABS: POSITIVE COUNT NO; POSITIVE DIFFERENTIAL NO; POSITIVE MORPHOLOGY NO
--- NOTE | 2017-09-16 08:29 | PCM.CONS.C ---
Reason for Consult Date of Consultation: 09/16/17 Reason for Consultation: Chest pain. History of Present Illness: The patient is a 77 year old F who yesterday evening, she was coming back home and she tried to catch the door in the garage, lost her balance and she fell backwards. She mentioned that she fell on the back of her head as well as her left elbow. She denies any significant trauma or pain of the left elbow. Shortly after, she started having retrosternal chest pain, described as chest pressure, 7 out of 10 in severity, not radiating, associated with nausea and mild shortness of breath, lasted until she arrived to the emergency room and she is still having chest pain at this time. Before the fall, she denied dizziness, lightheadedness, chest pain, palpitation, syncope or presyncope. In the emergency department, her heart rate has been fluctuating anywhere from 110 down to 60s, blood pressure was stable. Pulse ox was 95% on room air. Routine blood work is remarkable for mild leukocytosis, hemoglobin of 10.8 g/dL, potassium of 3.3. Her troponin is 0.29. She had 2 EKGs done in the ER. One EKG revealed sinus rhythm with ST segment depression in leads II and III. Another EKG revealed A. fib, heart rate was in the 90s and again revealed ST segment depression in leads II and III. Chest x-ray revealed mild cardiomegaly, probable bilateral basilar atelectasis. She was given 1 dose of therapeutic Lovenox and started on IV nitroglycerin drip in the ER. She is being admitted for borderline elevated troponin with questionable EKG changes probably due to acute non-ST elevation IA. She has continued to have chest discomfort and this morning still has some chest discomfort with an elevated troponin. She describes the chest pain as a heaviness and has not had any previous such episodes. [] Past Medical History Allergies/Adverse Reactions: Allergies codeine Allergy (Verified 09/15/17 21:04) Other oxycodone HCl [From OxyContin] Allergy (Verified 09/15/17 21:04) Other Home Medications: Ambulatory Orders Medication Instructions Recorded Aspirin [Adult Low Dose Aspirin EC] 81 mg PO DAILY 02/22/16 atorvastatin 20 mg tablet 20 mg PO QHS #90 tab 06/30/17 lisinopril 20 mg tablet 20 mg PO DAILY #90 tab 06/30/17 Levothyroxine [Synthroid] 25 mcg PO DAILY 09/15/17 Past Medical History (Chronic Problems): Chronic Problems (Last Reviewed 09/11/17 @ 15:48 by Lolita Woodson) DDD (degenerative disc disease), lumbar (Chronic) Other chest pain (Chronic) Abnormal stress test (Chronic) Hypertension (Chronic) Hyperlipidemia (Chronic) Other detention (current) drug therapy (Chronic) CAD (coronary artery disease) (Chronic) Surgical History: appendectomy, total knee arthroplasty, - - section. 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 Denies: Chest Discomfort, Shortness of Breath, Orthopnea, PND, Peripheral Edema, Palpitations, Lightheadedness, Dizziness, Near Syncope, Syncope Respiratory: Denies: Cough, Sputum Production, Hemoptysis Gastrointestinal: Denies: Hematemesis, Hematochezia, Melena Genitourinary: Denies: Dysuria, Hematuria Skin: Denies: Rash Subjectve: Pleasant lady no apparent distress rather talkative Objective: Vital Signs Temp Pulse Resp BP Pulse Ox 98.7 F 78 17 112/75 98 09/16/17 04:50 09/16/17 08:00 09/16/17 08:00 09/16/17 08:00 09/16/17 08:00 Oxygen Flow Rate (L/min) 4 Oxygen Delivery Method Nasal Cannula Weight: 164 lb 0.383 oz Body Mass Index (BMI) 29.9 Intake and Output for Last 24 Hours 09/14/17 09/15/17 09/16/17 23:59 23:59 23:59 Intake Total 282 / 282 Output Total 300 / 300 Balance - General: Awake, Alert, Oriented x 3 HEENT: PERRL, EOMI, Sclera Non Icteric Neck: Supple, Good ROM, No Lymph Node Enlargement Lungs: Clear to auscultation Cardiovascular: Regular Rhythm, Normal S1, Normal S2, No Murmurs, No Rubs, No Gallops Vascular: No Carotid Bruits, Normal Femoral Pulses, Normal Radial Pulses, Normal Dorsalis Pedal Pulse, Normal Posterior Tibial Pulses Abdomen: Bowel Sounds Present, Soft, Non Tender, No HSM, No Organomegaly Extremities: No Cyanosis, No Clubbing, No edema Neurological: No Focal Motor or Sensory Deficit 09/16/17 01:15: Troponin I 1.64 H* 09/16/17 05:45: WBC 8.9, RBC 3.95 L, Hgb 10.3 L, Hct 32.7 L, MCV 82.8, MCH 26.1 L, MCHC 31.5 L, RDW 14.6, RDW Differential 44.5 H, Plt Count 198, MPV 10.7, Immature Gran % (Auto) 0.100, Neut % (Auto) 85.1 H, Lymph % (Auto) 11.4 L, [place] % (Auto) 3.2, Eos % (Auto) 0.1, Baso % (Auto) 0.1, Absolute Neuts (auto) 7.5, Total Counted Not Reportable 09/16/17 05:45: Sodium 143, Potassium 3.6, Chloride 110 H, Carbon Dioxide 24.0, Anion Gap 9, BUN 19 H, Creatinine 0.96, Est GFR (MDRD) Af Amer 72, Est GFR (MDRD) Non-Af 60, BUN/Creatinine Ratio 19.7, Glucose 120 H, Calcium 8.5 09/16/17 05:45: PT 14.6, INR 1.1, APTT 41.0 H Rhythm: EKG: Sinus rhythm with no acute changes ECHO: pending Assessment/Plan 1. Non-ST elevation myocardial infarction She has atypical presentation but currently has non-ST elevation myocardial infarction and has continued chest pain. She still on the nitroglycerin drip. Based on the above I would recommend that she continue the aspirin and start her on Brilinta and would recommend urgent cardiac catheterization. It is possible that this may be related to a takutsobo event but it would be important to exclude obstructive coronary artery disease. I have discussed the above with her and she understands and agrees to proceed. 2. Hypertension Blood pressure under good control on the current medical management. We will continue to treat. 3. Risk factor modification We will continue with risk factor modification with high intensity statin. Thank you for allowing me to participate in the care of your patient. Please don't hesitate to call if any issues arise
[2017-09-16] MEDS: TICAGRELOR 90 MG TABLET 180 MG PO (08:31)
--- NOTE | 2017-09-16 08:34 | CON.PCM_ITS ---
Reason for Consult Date of Consultation: 09/16/17 Reason for Consultation: Chest pain. History of Present Illness: The patient is a 77 year old F who yesterday evening, she was coming back home and she tried to catch the door in the garage, lost her balance and she fell backwards. She mentioned that she fell on the back of her head as well as her left elbow. She denies any significant trauma or pain of the left elbow. Shortly after, she started having retrosternal chest pain, described as chest pressure, 7 out of 10 in severity, not radiating, associated with nausea and mild shortness of breath, lasted until she arrived to the emergency room and she is still having chest pain at this time. Before the fall, she denied dizziness, lightheadedness, chest pain, palpitation, syncope or presyncope. In the emergency department, her heart rate has been fluctuating anywhere from 110 down to 60s, blood pressure was stable. Pulse ox was 95% on room air. Routine blood work is remarkable for mild leukocytosis, hemoglobin of 10.8 g/dL, potassium of 3.3. Her troponin is 0.29. She had 2 EKGs done in the ER. One EKG revealed sinus rhythm with ST segment depression in leads II and III. Another EKG revealed A. fib, heart rate was in the 90s and again revealed ST segment depression in leads II and III. Chest x-ray revealed mild cardiomegaly , probable bilateral basilar atelectasis. She was given 1 dose of therapeutic Lovenox and started on IV nitroglycerin drip in the ER. She is being admitted for borderline elevated troponin with questionable EKG changes probably due to acute non-ST elevation CO. She has continued to have chest discomfort and this morning still has some chest discomfort with an elevated troponin. She describes the chest pain as a heaviness and has not had any previous such episodes. [] Past Medical History Allergies/Adverse Reactions: Allergies codeine Allergy (Verified 09/15/17 21:04) Other oxycodone HCl [From OxyContin] Allergy (Verified 09/15/17 21:04) Other Home Medications: Ambulatory Orders Medication Instructions Recorded Aspirin [Adult Low Dose Aspirin EC] 81 mg PO DAILY 02/22/16 atorvastatin 20 mg tablet 20 mg PO QHS #90 tab 06/30/17 lisinopril 20 mg tablet 20 mg PO DAILY #90 tab 06/30/17 Levothyroxine [Synthroid] 25 mcg PO DAILY 09/15/17 Past Medical History (Chronic Problems): Chronic Problems (Last Reviewed 09/11/17 @ 15:48 by Lolita Woodson) DDD (degenerative disc disease), lumbar (Chronic) Other chest pain (Chronic) Abnormal stress test (Chronic) Hypertension (Chronic) Hyperlipidemia (Chronic) Other alf (current) drug therapy (Chronic) CAD (coronary artery disease) (Chronic) Surgical History: appendectomy, total knee arthroplasty, - - section. 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 Denies: Chest Discomfort, Shortness of Breath, Orthopnea, PND, Peripheral Edema, Palpitations, Lightheadedness, Dizziness, Near Syncope, Syncope Respiratory: Denies: Cough, Sputum Production, Hemoptysis Gastrointestinal: Denies: Hematemesis, Hematochezia, Melena Genitourinary: Denies: Dysuria, Hematuria Skin: Denies: Rash Subjectve: Pleasant lady no apparent distress rather talkative Objective: Vital Signs Temp Pulse Resp BP Pulse Ox 98.7 F 78 17 112/75 98 09/16/17 04:50 09/16/17 08:00 09/16/17 08:00 09/16/17 08:00 09/16/17 08:00 Oxygen Flow Rate (L/min) 4 Oxygen Delivery Method Nasal Cannula Weight: 164 lb 0.383 oz Body Mass Index (BMI) 29.9 Intake and Output for Last 24 Hours 09/14/17 09/15/17 09/16/17 23:59 23:59 23:59 Intake Total 282 / 282 Output Total 300 / 300 Balance - General: Awake, Alert, Oriented x 3 HEENT: PERRL, EOMI, Sclera Non Icteric Neck: Supple, Good ROM, No Lymph Node Enlargement Lungs: Clear to auscultation Cardiovascular: Regular Rhythm, Normal S1, Normal S2, No Murmurs, No Rubs, No Gallops Vascular: No Carotid Bruits, Normal Femoral Pulses, Normal Radial Pulses, Normal Dorsalis Pedal Pulse, Normal Posterior Tibial Pulses Abdomen: Bowel Sounds Present, Soft, Non Tender, No HSM, No Organomegaly Extremities: No Cyanosis, No Clubbing, No edema Neurological: No Focal Motor or Sensory Deficit 09/16/17 01:15: Troponin I 1.64 H* 09/16/17 05:45: WBC 8.9, RBC 3.95 L, Hgb 10.3 L, Hct 32.7 L, MCV 82.8, MCH 26.1 L, MCHC 31.5 L, RDW 14.6, RDW Differential 44.5 H, Plt Count 198, MPV 10.7, Immature Gran % (Auto) 0.100, Neut % (Auto) 85.1 H, Lymph % (Auto) 11.4 L, [place] % (Auto) 3.2, Eos % (Auto) 0.1, Baso % (Auto) 0.1, Absolute Neuts (auto) 7.5, Total Counted Not Reportable 09/16/17 05:45: Sodium 143, Potassium 3.6, Chloride 110 H, Carbon Dioxide 24.0, Anion Gap 9, BUN 19 H, Creatinine 0.96, Est GFR (MDRD) Af Amer 72, Est GFR (MDRD ) Non-Af 60, BUN/Creatinine Ratio 19.7, Glucose 120 H, Calcium 8.5 09/16/17 05:45: PT 14.6, INR 1.1, APTT 41.0 H Rhythm: EKG: Sinus rhythm with no acute changes ECHO: pending Assessment/Plan 1. Non-ST elevation myocardial infarction She has atypical presentation but currently has non-ST elevation myocardial infarction and has continued chest pain. She still on the nitroglycerin drip. Based on the above I would recommend that she continue the aspirin and start her on Brilinta and would recommend urgent cardiac catheterization. It is possible that this may be related to a takutsobo event but it would be important to exclude obstructive coronary artery disease. I have discussed the above with her and she understands and agrees to proceed. 2. Hypertension Blood pressure under good control on the current medical management. We will continue to treat. 3. Risk factor modification We will continue with risk factor modification with high intensity statin. Thank you for allowing me to participate in the care of your patient. Please don't hesitate to call if any issues arise
--- NOTE | 2017-09-16 10:08 | NURSING ---
Called report to MARIA E Marquez RN at this time.
--- NOTE | 2017-09-16 10:27 | CL.D_ITS ---
Patient Name: ANGELI NICHOLAS Study Date: 09/16/2017 Performing: Eduardo Das MD Ht: 61.81 inches 157 cm : 1940 Wt: 163.14 lbs 74 kg Age: 77 Gender: female BSA: 1.75 PROCEDURE(S) PERFORMED SL63-NEA/COR/LV CLINICAL PROFILE AND INDICATIONS Indications: ACS <= 24 hrs Heart Failure: None Stress/Imaging Stress/Image Study Performed: No CONCLUSIONS Moderately severe proximal ostial left anterior descending artery stenosis with severe hypokinesis to akinesis of the anterior apical wall. RECOMMENDATIONS Staged for FFR DESCRIPTION OF PROCEDURE The patient arrived to the procedure lab. The risks and benefits of the procedure as well as a full d escription of our services here and current unavailability of surgical backup were fully explained to the patient and/or their significant other prior to the catheterization. The Timeout was completed, verifying the correct patient and procedure. The patient's procedural site was prepped and draped in the usual fashion. Local anesthetic was given subcutaneously to right radial region with Lidocaine 2% . Using a modified Seldinger technique, arterial access was obtained via the right radial artery, a 6 Fr sheath was inserted. Left Coronary Artery selective angiography was performed in multiple views u sing a 5 Fr. 4.0 [place] catheter. Right Coronary Artery selective angiography was then performed in mu ltiple views using a 5 Fr. 4.0 [place] catheter. Left Ventriculography was performed in LEVINE projection using a 5 Fr. [place] catheter. LV to AO pullback pressures were then recorded. CORONARY ANGIOGRAPHY DOMINANCE: Right Dominant LEFT HEART ASSESSMENT Left Ventricular Ejection Fraction: by LV Gram 20 % Consistent with Takotsubo cardiomyopathy. LEFT MAIN: Angiographically normal LEFT ANTERIOR DECENDING ARTERY: OSTIAL LAD: 65 % Stenosis DIAGONAL 1: Proximal - Angiographically normal CIRCUMFLEX ARTERY: Angiographically normal RIGHT CORONARY ARTERY: No significant disease noted AORTIC ROOT: Angiographically normal COMPLICATIONS PROCEDURE MEDICATIONS Fentanyl 25 mcg IV Versed 0.5 mg IV Versed 0.5 mg IV Oxygen: 2 L/min via nasal cannula Heparin 6000 unit(s) IV 09/16/2017 10:26:15 SUMMARY OF HEMODYNAMIC DATA Time AIR REST ECG 09:28:52 AO 112/68 (86) SA 09:48:56 LV 124/0, 22 09:56:03 LV 123/0, 22 09:56:10 LV 113/-1, 21 09:57:36 LV 120/0, 24 09:57:44 LVp 122/-1, 22 09:57:52 AOp 116/63 (85) 09:57:57 Signed By Eduardo Das MD On 09/16/2017 10:26:19 Eduardo Das MD
--- NOTE | 2017-09-16 11:00 | EKG12_ITS ---
Test Reason : CATH Blood Pressure : / mmHG Vent. Rate : 088 BPM Atrial Rate : 088 BPM P-R Int : 136 ms QRS Dur : 094 ms QT Int : 390 ms P-R-T Axes : 091 078 040 degrees QTc Int : 471 ms Normal sinus rhythm Normal ECG No previous ECGs available Confirmed by ISAEL RAMSAY, ZANE ([id number]), state editor WENDY WILLOUGHBY ([id number]) on 09/20/2017 2:35:21 PM Referred By: ISAEL Confirmed By:ZANE KIRKLAND MD
--- NOTE | 2017-09-16 11:04 | CASEMGMT ---
CM attempted to interview patient for initial assessment. Patient is not present in room. Will attempt again, as time permits.
--- NOTE | 2017-09-16 11:24 | RAD_ITS ---
STUDY: X-RAY CHEST REASON FOR EXAM: Female, 77 years old. Shortness of breath. TECHNIQUE: Single AP portable upright view of the chest. COMPARISON: Portable AP upright chest x-ray September 15, 2017. FINDINGS: Ill-defined alveolar density in the right upper lung and mild increasing left suprahilar perivascular blurring is seen in addition to the persistent ill-defined bibasilar densities noted on earlier study. The findings suggest worsening CHF with pulmonary edema, although an inflammatory/infectious process could also be considered. There is no demonstrated pleural abnormality. There is borderline to mild cardiac enlargement. Normal mediastinum. Normal visualized aortic arch and descending thoracic aorta. Normal visualized thoracic spine. Normal visualized ribs, clavicles, and shoulders. There is no demonstrated abnormality of the visualized soft tissue structures of the upper abdomen. RAD/Chest 1 View (Portable) IMPRESSION: 1. Worsening bilateral pulmonary edema versus inflammatory/infectious infiltrates. 2. Borderline to mild cardiac enlargement. Electronically Signed: Dakota Plummer MD at 14:49 EDT , Service support ,
--- NOTE | 2017-09-16 11:31 | PN.CARD_ITS ---
Objective: Vital Signs Temp Pulse Resp BP Pulse Ox 98.7 F 78 16 99/67 94 09/16/17 04:50 09/16/17 09:00 09/16/17 09:00 09/16/17 09:00 09/16/17 09:00 Oxygen Flow Rate (L/min) 2 Oxygen Delivery Method Nasal Cannula Weight: 74.4 kg Body Mass Index (BMI) 29.9 Intake and Output for Last 24 Hours 09/14/17 09/15/17 09/16/17 23:59 23:59 23:59 Intake Total 282 / 282 Output Total 300 / 300 Balance -09/16/17 01:15: Troponin I 1.64 H* 09/16/17 05:45: WBC 8.9, RBC 3.95 L, Hgb 10.3 L, Hct 32.7 L, MCV 82.8, MCH 26.1 L, MCHC 31.5 L, RDW 14.6, RDW Differential 44.5 H, Plt Count 198, MPV 10.7, Immature Gran % (Auto) 0.100, Neut % (Auto) 85.1 H, Lymph % (Auto) 11.4 L, [place] % (Auto) 3.2, Eos % (Auto) 0.1, Baso % (Auto) 0.1, Absolute Neuts (auto) 7.5, Total Counted Not Reportable 09/16/17 05:45: Sodium 143, Potassium 3.6, Chloride 110 H, Carbon Dioxide 24.0, Anion Gap 9, BUN 19 H, Creatinine 0.96, Est GFR (MDRD) Af Amer 72, Est GFR (MDRD ) Non-Af 60, BUN/Creatinine Ratio 19.7, Glucose 120 H, Calcium 8.5 09/16/17 05:45: Troponin I 3.76 H* 09/16/17 05:45: PT 14.6, INR 1.1, APTT 41.0 H Rhythm: EKG: ECHO: Stress Test: Cardiac Cath: PCI: CT Surgery: Holter monitor: EPS: PPM: CXR: Chest CT Scan: Medical Necessity - Tobacco Use Smoking Status: Never smoker
--- NOTE | 2017-09-16 11:33 | PCM.PN.CARD ---
Objective: Vital Signs Temp Pulse Resp BP Pulse Ox 98.7 F 78 16 99/67 94 09/16/17 04:50 09/16/17 09:00 09/16/17 09:00 09/16/17 09:00 09/16/17 09:00 Oxygen Flow Rate (L/min) 2 Oxygen Delivery Method Nasal Cannula Weight: 74.4 kg Body Mass Index (BMI) 29.9 Intake and Output for Last 24 Hours 09/14/17 09/15/17 09/16/17 23:59 23:59 23:59 Intake Total 282 / 282 Output Total 300 / 300 Balance - General: Awake, Alert, Oriented x 3 HEENT: PERRL, EOMI, Sclera Non Icteric Neck: Supple, Good ROM, No Lymph Node Enlargement Lungs: Clear to auscultation Cardiovascular: Regular Rhythm, Normal S1, Normal S2, No Murmurs, No Rubs, No Gallops Vascular: No Carotid Bruits, Normal Femoral Pulses, Normal Radial Pulses, Normal Dorsalis Pedal Pulse, Normal Posterior Tibial Pulses Abdomen: Bowel Sounds Present, Soft, Non Tender, No HSM, No Organomegaly Extremities: No Cyanosis, No Clubbing, No edema Neurological: No Focal Motor or Sensory Deficit 09/16/17 01:15: Troponin I 1.64 H* 09/16/17 05:45: WBC 8.9, RBC 3.95 L, Hgb 10.3 L, Hct 32.7 L, MCV 82.8, MCH 26.1 L, MCHC 31.5 L, RDW 14.6, RDW Differential 44.5 H, Plt Count 198, MPV 10.7, Immature Gran % (Auto) 0.100, Neut % (Auto) 85.1 H, Lymph % (Auto) 11.4 L, [place] % (Auto) 3.2, Eos % (Auto) 0.1, Baso % (Auto) 0.1, Absolute Neuts (auto) 7.5, Total Counted Not Reportable 09/16/17 05:45: Sodium 143, Potassium 3.6, Chloride 110 H, Carbon Dioxide 24.0, Anion Gap 9, BUN 19 H, Creatinine 0.96, Est GFR (MDRD) Af Amer 72, Est GFR (MDRD) Non-Af 60, BUN/Creatinine Ratio 19.7, Glucose 120 H, Calcium 8.5 05/05/18 05:45: Troponin I 3.76 H* 09/16/17 05:45: PT 14.6, INR 1.1, APTT 41.0 H Rhythm: EKG: ECHO: Stress Test: Cardiac Cath: PCI: CT Surgery: Holter monitor: EPS: PPM: CXR: Chest CT Scan: Medical Necessity - Tobacco Use Smoking Status: Never smoker Assessment/Plan Asked to evaluate patient admitted with NSTEMI, who underwent diagnostic heart cath via the right radial approach. There was questionable degree of stenosis in the proximal LAD. Plan was to investigate the area further with IVUS. Patient given 6000 u heparin IV. A 6 FR JL4 guiding catheter positioned in the ostium of the LM. Subsequent dye injection demonstrated no-reflow with air-embolization. Patient with decrease BP/O2 sat. Brief CPR performed. Patient given epi, placed on NRB. There was improvement in BP and O2 sat. Patient developed SVT for which Dig .125 mg given. There was improvement in HR. Continued wth IVUS of the LAD using a [place] catheter. This demonstrated negative remodelling at the proximal LAD, near the diagonal artery, with mild plaque formation. CSA measured at 4.8 cm2 suggesting adequate CSA. No further intervention performed. Patient remained hemodynamically stable rest of the time in the laborer shaft sinking.
[2017-09-16 11:36] LABS: ACT Activated Clotting Time 230 sec (74-137)
[2017-09-16 11:51] LABS: Base Excess -6 mmol/L (-2 to +2); Bicarbonate 19.5 mmol/L (22-26); Blood Gas Specimen Type ART; EPAP 14; FI02 100; IPAP 20; PO2 49 mmHG (75-100); RR 12; SITE L Radial; SO2 84 % (95-99); Time Given 1143; Total Carbon Dioxide 20 mmol/L; pCO2 33.4 mmHg (35-45); pH 7.37 (7.35-7.45)
--- NOTE | 2017-09-16 11:59 | PN.CARD_ITS ---
Objective: Vital Signs Temp Pulse Resp BP Pulse Ox 98.7 F 78 16 99/67 94 09/16/17 04:50 09/16/17 09:00 09/16/17 09:00 09/16/17 09:00 09/16/17 09:00 Oxygen Flow Rate (L/min) 2 Oxygen Delivery Method Nasal Cannula Weight: 74.4 kg Body Mass Index (BMI) 29.9 Intake and Output for Last 24 Hours 09/14/17 09/15/17 09/16/17 23:59 23:59 23:59 Intake Total 282 / 282 Output Total 300 / 300 Balance - General: Awake, Alert, Oriented x 3 HEENT: PERRL, EOMI, Sclera Non Icteric Neck: Supple, Good ROM, No Lymph Node Enlargement Lungs: Clear to auscultation Cardiovascular: Regular Rhythm, Normal S1, Normal S2, No Murmurs, No Rubs, No Gallops Vascular: No Carotid Bruits, Normal Femoral Pulses, Normal Radial Pulses, Normal Dorsalis Pedal Pulse, Normal Posterior Tibial Pulses Abdomen: Bowel Sounds Present, Soft, Non Tender, No HSM, No Organomegaly Extremities: No Cyanosis, No Clubbing, No edema Neurological: No Focal Motor or Sensory Deficit 09/16/17 01:15: Troponin I 1.64 H* 09/16/17 05:45: WBC 8.9, RBC 3.95 L, Hgb 10.3 L, Hct 32.7 L, MCV 82.8, MCH 26.1 L, MCHC 31.5 L, RDW 14.6, RDW Differential 44.5 H, Plt Count 198, MPV 10.7, Immature Gran % (Auto) 0.100, Neut % (Auto) 85.1 H, Lymph % (Auto) 11.4 L, [place] % (Auto) 3.2, Eos % (Auto) 0.1, Baso % (Auto) 0.1, Absolute Neuts (auto) 7.5, Total Counted Not Reportable 09/16/17 05:45: Sodium 143, Potassium 3.6, Chloride 110 H, Carbon Dioxide 24.0, Anion Gap 9, BUN 19 H, Creatinine 0.96, Est GFR (MDRD) Af Amer 72, Est GFR (MDRD ) Non-Af 60, BUN/Creatinine Ratio 19.7, Glucose 120 H, Calcium 8.5 05/05/18 05:45: Troponin I 3.76 H* 09/16/17 05:45: PT 14.6, INR 1.1, APTT 41.0 H Rhythm: EKG: ECHO: Stress Test: Cardiac Cath: PCI: CT Surgery: Holter monitor: EPS: PPM: CXR: Chest CT Scan: Medical Necessity - Tobacco Use Smoking Status: Never smoker Assessment/Plan Asked to evaluate patient admitted with NSTEMI, who underwent diagnostic heart cath via the right radial approach. There was questionable degree of stenosis in the proximal LAD. Plan was to investigate the area further with IVUS. Patient given 6000 u heparin IV. A 6 FR JL4 guiding catheter positioned in the ostium of the LM. Subsequent dye injection demonstrated no-reflow with air- embolization. Patient with decrease BP/O2 sat. Brief CPR performed. Patient given epi, placed on NRB. There was improvement in BP and O2 sat. Patient developed SVT for which Dig .125 mg given. There was improvement in HR. Continued wth IVUS of the LAD using a [place] catheter. This demonstrated negative remodelling at the proximal LAD, near the diagonal artery, with mild plaque formation. CSA measured at 4.8 cm2 suggesting adequate CSA. No further intervention performed. 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
--- NOTE | 2017-09-16 12:00 | CPS ---
increased to 20/16 sats 85%
[2017-09-16 12:11] LABS: Absolute Lymphocyte Count 0.67 X10^3/ul (0.83-4.51); Absolute Neutrophil Count 11.4 X10^3/uL (2.0-7.7); Basophil# 0.01 X10^3/uL; Basophil% 0.1 % (0-1); Eosinophil# 0.01 X10^3/uL; Eosinophils% 0.1 % (0-5); Hematocrit 35.6 % (37-47); Hemoglobin 11.2 g/dl (12.0-15.0); Lymphocyte # 0.67 X10^3/ul (4.0); Lymphocyte % 5.3 % (19-41); Mean Corp Hgb Conc 31.5 g/gl (32-36); Mean Corpuscular Hgb 26.4 pg (27.0-32.0); Mean Corpuscular Volume 83.8 fL (81-99); Mean Platelet Vol. 10.8 fl (6.2-12.0); Monocyte# 0.54 X10^3/uL; Monocyte% 4.3 % (0-10); Neutrophil # 11.39 X10^3/uL (2.7-7.7); Neutrophil % 90.1 % (47-70); Platelet Count 218 K/mm3 (150-450); RBC Distribution Width CV 14.8 % (11.6-14.6); RBC Distribution Width SD 45.2 fl (35.1-43.9); Red Blood Count 4.25 M/mm3 (4.2-5.4); White Blood Count 12.6 K/mm3 (4.4-11.0)
[2017-09-16 12:12] LABS: POSITIVE COUNT NO; POSITIVE DIFFERENTIAL NO; POSITIVE MORPHOLOGY NO
[2017-09-16 12:19] LABS: Anion Gap 10 (5-15); BUN 19 mg/dL (7-18); BUN/Creat Ratio 15.1 RATIO (10-20); Calcium,Total 8.3 mg/dL (8.5-10.1); Chloride 108 mmol/L (98-107); Creatinine, Serum 1.26 mg/dL (0.55-1.02); EST Glomerular Filtration Rate 44 mL/min (>60); Est Glom Filt Rate - Afr Amer 53 mL/min (>60); Estimated Creatinine Clearance 30.04 ml/min; Glucose 228 mg/dL (74-106); Magnesium 1.8 mg/dL (1.6-2.6); Phosphorus 4.2 mg/dL (2.5-4.9); Potassium 3.5 mmol/L (3.5-5.1); Sodium Level 141 mmol/L (136-145)
--- NOTE | 2017-09-16 12:20 | PCM.CON.CC ---
Problem List (1) Acute respiratory failure with hypoxia Status: Acute (2) Acute systolic (congestive) heart failure Status: Suspected Comment: EF 20% (3) Segmental and somatic dysfunction of cervical region Status: Acute (4) Segmental and somatic dysfunction of lumbar region Status: Acute (5) Segmental and somatic dysfunction of thoracic region Status: Acute (6) CAD (coronary artery disease) Status: Chronic Qualifiers: Coronary Disease-Associated Artery/Lesion type: [place] artery [place] vs. transplanted heart: [place] heart Associated angina: with unstable angina Qualified Code(s): I25.110 - Atherosclerotic heart disease of [place] coronary artery with unstable angina pectoris (7) DDD (degenerative disc disease), lumbar Status: Chronic (8) Hyperlipidemia Status: Chronic Qualifiers: Hyperlipidemia type: pure hypercholesterolemia (9) Hypertension Status: Chronic Qualifiers: Hypertension type: essential hypertension (10) Other chcf (current) drug therapy Status: Chronic Reason for Consult Date of Consultation: 09/16/17 Reason for Consultation: Acute hypoxic respiratory failure History of Present Illness: The patient is a 77 year old F, with past medical history listed below, presented to [facility] on 09/15/2017 secondary to fall and chest pain. Patient reportedly had fallen near the garage and hit the back of her head and elbow and shortly thereafter had retrosternal chest pain described as 7 out of 10 with non-radiation, but associated with nausea and shortness of breath. After evaluation in the emergency room, patient was admitted to the PCU for further monitoring. Some A. fib was noted overnight. This morning, patient was taken for cardiac catheterization. Patient reportedly had a lesion that was concerning, so manager financial services was called. Asif WYLIE was called at 10:35 AM. I did present to the Yeast Fermentation Attendant for evaluation, but was told that everything was okay and sent away. At approximately 11:10 AM, I was notified by Dr. Das that the patient was having respiratory difficulty with hypoxemia. Patient had been given 40 of Lasix, but would be coming to the intensive care unit for further monitoring. At 11:20 AM, the patient arrived to the intensive care unit diaphoretic, clammy, pale and minimally responsive. Patient was noted to have a saturation of 62% at that time by finger pulse oximetry. Lung auscultation showed rales in all lung [place]. Patient stated that she was a full code. Patient was immediately started on BiPAP therapy with 100% FiO2. Initial settings of 10/6 yielded saturations in the 70s. Pressures were continuously increased at the bedside to a peak of 20/16 with 100% FiO2. Test x-ray was obtained showing bilateral interstitial infiltrates, consistent with pulmonary edema. ABG was obtained at that time showing adequate ventilation. Patient had approximately 400 cc of urine output at that time secondary Lasix. Did discuss with Dr. Das and plan to monitor patient on BiPAP therapy. Patient's [id number] and friend were in the waiting room. They were updated on patient's condition. Patient is able to provide short answers, but is not readily conversant. Patient's color has improved after initiation of BiPAP therapy. Per family present and medical record, patient did not have any prodromal symptoms such as fever, chills, nausea, vomiting, congestion or shortness of breath prior to heart catheterization. Past Medical History Past Medical History (Chronic Problems): Chronic Problems (Last Reviewed 09/11/17 @ 15:48 by Lolita Woodson) DDD (degenerative disc disease), lumbar (Chronic) Other chest pain (Chronic) Abnormal stress test (Chronic) Hypertension (Chronic) Hyperlipidemia (Chronic) Other chcf (current) drug therapy (Chronic) CAD (coronary artery disease) (Chronic) Allergies codeine Allergy (Verified 09/15/17 21:04) Other oxycodone HCl [From OxyContin] Allergy (Verified 09/15/17 21:04) Other Home Medications: Ambulatory Orders Medication Instructions Recorded Aspirin [Adult Low Dose Aspirin EC] 81 mg PO DAILY 02/22/16 atorvastatin 20 mg tablet 20 mg PO QHS #90 tab 06/30/17 lisinopril 20 mg tablet 20 mg PO DAILY #90 tab 06/30/17 Levothyroxine [Synthroid] 25 mcg PO DAILY 09/15/17 Surgical History: appendectomy, total knee arthroplasty, - - section. Psychiatric History: Anxiety RINKMAN History: No pertinent RINKMAN history Lives: Alone Smoking Status: Never smoker Alcohol: None Drugs: None - *Family History Maternal History Items: No pertinent history Paternal History Items: No pertinent history Review of Systems Unable to obtain accurate/complete ROS d/t: Limited secondary to acute status Patient Problems: Active and Suspected Problems (Last Reviewed 09/11/17 @ 15:48 by Lolita Woodson) Acute respiratory failure with hypoxia (Acute) Acute systolic (congestive) heart failure (Suspected) EF 20% Objective: Chest x-ray was personally reviewed and was consistent with pulmonary edema. No pneumothorax was appreciated. - Physical Exam General: - - RASS -2. Conversational dyspnea noted. Good BiPAP synchrony noted. Appears stated age. Color improved significantly with initiation of BiPAP therapy. HEENT: Atraumatic, PERRLA, EOMI, Normocephalic, - - Conjunctive are improved. Slight scleral injection on initial presentation. Oral: No Gingival or Mucosal Lesions/ Ulcerations, Dry Mucosa Neck: Supple, No JVD, No Nodes, Trachea Midline Lungs: No rhonchi, No wheeze, Rales - In all lung barnett, - - Symmetric chest rise noted Cardiovascular: Normal S1, Normal S2, No murmurs, No rub noted, No Gallop, Tachycardic Abdomen: Bowel Sounds Present, Soft, Non Tender, Non-Distended, Obese Extremities: No cyanosis, No edema, Diminished Peripheral Pulses Skin: No rashes, No breakdown Musculoskeletal: No Tenderness to Palpation of Joints or Extremities Lymphatic: No Cervical, Supraclavicular, or Inguinal Adenopathy Neurological: Cranial nerves II-XII grossly intact, Neuro grossly intact, Sensory exam intact to light touch and pain Psych/Mental Status: Anxious, Flat Affect, Restless Vital Signs Temp Pulse Resp BP Pulse Ox 37.1 C 80 16 99/67 82 09/16/17 04:50 09/16/17 11:30 09/16/17 11:30 09/16/17 09:00 09/16/17 11:30 Oxygen Flow Rate (L/min) 2 Oxygen Delivery Method Nasal Cannula Weight: 74.4 kg Body Mass Index (BMI) 29.9 Intake and Output for Last 24 Hours 09/14/17 09/15/17 09/16/17 23:59 23:59 23:59 Intake Total 282 / 282 Output Total 300 / 300 Balance - Laboratory Tests Past 24 Hrs 09/16/17 09/16/17 09/16/17 01:15 05:45 05:45 WBC 8.9 RBC 3.95 L Hgb 10.3 L Hct 32.7 L MCV 82.8 MCH 26.1 L MCHC 31.5 L RDW 14.6 RDW Differential 44.5 H Plt Count 198 MPV 10.7 Immature Gran % (Auto) 0.100 Neut % (Auto) 85.1 H Lymph % (Auto) 11.4 L [place] % (Auto) 3.2 Eos % (Auto) 0.1 Baso % (Auto) 0.1 Absolute Neuts (auto) 7.5 Absolute Lymphs (auto) 1.01 Total Counted Not Reportable PT INR APTT Activated Clotting Time Specimen Type Sample Site pH Bicarbonate Actual POC Total CO2 Base Excess O2 Saturation O2 % ABG pCO2 ABG pO2 Respiration Rate O2 Delivery Device EPAP IPAP Blood Gas Notified Whom Blood Gas Notified Time Sodium 143 Potassium 3.6 Chloride 110 H Carbon Dioxide 24.0 Anion Gap 9 BUN 19 H Creatinine 0.96 Estim Creat Clear Calc 39.43 Est GFR (MDRD) Af Amer 72 Est GFR (MDRD) Non-Af 60 BUN/Creatinine Ratio 19.7 Glucose 120 H Lactic Acid Calcium 8.5 Phosphorus Magnesium Total Creatine Kinase Troponin I 1.64 H* 09/16/17 09/16/17 09/16/17 05:45 05:45 10:54 WBC RBC Hgb Hct MCV MCH MCHC RDW RDW Differential Plt Count MPV Immature Gran % (Auto) Neut % (Auto) Lymph % (Auto) [place] % (Auto) Eos % (Auto) Baso % (Auto) Absolute Neuts (auto) Absolute Lymphs (auto) Total Counted PT 14.6 INR 1.1 APTT 41.0 H Activated Clotting Time 230 H Specimen Type Sample Site pH Bicarbonate Actual POC Total CO2 Base Excess O2 Saturation O2 % ABG pCO2 ABG pO2 Respiration Rate O2 Delivery Device EPA IPAP Blood Gas Notified Whom Blood Gas Notified Time Sodium Potassium Chloride Carbon Dioxide Anion Gap BUN Creatinine Estim Creat Clear Calc Est GFR (MDRD) Af Amer Est GFR (MDRD) Non-Af BUN/Creatinine Ratio Glucose Lactic Acid Calcium Phosphorus Magnesium Total Creatine Kinase Troponin I 3.76 H* 09/16/17 09/16/17 09/16/17 11:44 11:55 11:55 WBC RBC Hgb Hct MCV MCH MCHC RDW RDW Differential Plt Count MPV Immature Gran % (Auto) Neut % (Auto) Lymph % (Auto) [place] % (Auto) Eos % (Auto) Baso % (Auto) Absolute Neuts (auto) Absolute Lymphs (auto) Total Counted PT INR APTT Activated Clotting Time Specimen Type ART Sample Site L Radial pH 7.37 Bicarbonate Actual 19.5 L POC Total CO2 20 Base Excess -6 L O2 Saturation 84 L O2 % 100 ABG pCO2 33.4 L ABG pO2 49 L Respiration Rate 12 O2 Delivery Device Bi / C PAP EPAP 14 IPAP 20 Blood Gas Notified Whom ICU MD Blood Gas Notified Time 1143 Sodium Potassium Chloride Carbon Dioxide Anion Gap BUN Creatinine Estim Creat Clear Calc Est GFR (MDRD) Af Amer Est GFR (MDRD) Non-Af BUN/Creatinine Ratio Glucose Lactic Acid Calcium Phosphorus Magnesium Total Creatine Kinase Pending Troponin I Pending 09/16/17 09/16/17 09/16/17 11:55 11:55 11:55 WBC 12.6 H RBC 4.25 Hgb 11.2 L Hct 35.6 L MCV 83.8 MCH 26.4 L MCHC 31.5 L RDW 14.8 H RDW Differential 45.2 H Plt Count 218 MPV 10.8 Immature Gran % (Auto) 0.100 Neut % (Auto) 90.1 H Lymph % (Auto) 5.3 L [place] % (Auto) 4.3 Eos % (Auto) 0.1 Baso % (Auto) 0.1 Absolute Neuts (auto) 11.4 H Absolute Lymphs (auto) 0.67 L Total Counted Not Reportable PT INR APTT Activated Clotting Time Specimen Type Sample Site pH Bicarbonate Actual POC Total CO2 Base Excess O2 Saturation O2 % ABG pCO2 ABG pO2 Respiration Rate O2 Delivery Device EPAP IPAP Blood Gas Notified Whom Blood Gas Notified Time Sodium 141 Potassium 3.5 Chloride 108 H Carbon Dioxide 23.0 Anion Gap 10 BUN 19 H Creatinine 1.26 H Estim Creat Clear Calc 30.04 Est GFR (MDRD) Af Amer 53 L Est GFR (MDRD) Non-Af 44 L BUN/Creatinine Ratio 15.1 Glucose 228 H Lactic Acid Pending Calcium 8.3 L Phosphorus 4.2 Magnesium 1.8 Total Creatine Kinase Troponin I 09/16/17 11:55 WBC RBC Hgb Hct MCV MCH MCHC RDW RDW Differential Plt Count MPV Immature Gran % (Auto) Neut % (Auto) Lymph % (Auto) [place] % (Auto) Eos % (Auto) Baso % (Auto) Absolute Neuts (auto) Absolute Lymphs (auto) Total Counted PT INR APTT Activated Clotting Time Specimen Type Sample Site pH Bicarbonate Actual POC Total CO2 Base Excess O2 Saturation O2 % ABG pCO2 ABG pO2 Respiration Rate O2 Delivery Device EPAP IPAP Blood Gas Notified Whom Blood Gas Notified Time Sodium Potassium Chloride Carbon Dioxide Anion Gap BUN Creatinine Estim Creat Clear Calc Est GFR (MDRD) Af Amer Est GFR (MDRD) Non-Af BUN/Creatinine Ratio Glucose Lactic Acid Calcium Phosphorus Cancelled Magnesium Cancelled Total Creatine Kinase Troponin I Clinical Impression(s) from Imaging Studies Chest X-Ray 09/15/17 21:47 IMPRESSION: There is mild enlargement of the cardiac silhouette with mild edema. There is no obvious effusion. There is minimal bibasilar atelectasis. Electronically Signed: Keri Freire MD at 22:16 EDT Tel Direct: [phone], Service support , Assessment/Plan Active and Suspected Problems (Last Reviewed 09/11/17 @ 15:48 by Lolita Woodson) Acute respiratory failure with hypoxia (Acute) Acute systolic (congestive) heart failure (Suspected) EF 20% RECOMMENDATIONS: 1. Continue BiPAP therapy, possible intubation 2. Diuresis as indicated 3. N.p.o. given high BiPAP requirements 4. Anticoagulation per cardiology IMPRESSIONS: 1. Acute hypoxic respiratory failure Etiology is unclear at this time. Patient with a very large AA gradient. Differential diagnosis would include flash pulmonary edema from acute on chronic systolic congestive heart failure, air embolism versus PE, anaphylactoid reaction. Patient with significant pulmonary edema noted on chest x-ray. Working diagnosis is flash pulmonary edema secondary to acute on chronic systolic congestive heart failure. Patient does appear to be responding to Lasix and nitroglycerin. Did discuss with the family. Patient may need to be intubated if oxygen tension continues to rise. However, if patient can achieve diuresis with improvement of oxygen transfer, possibly be able to wean BiPAP therapy without intubation. 2. Acute on chronic systolic congestive heart failure Patient on aspirin, JANES inhibitor and statin at baseline. She was significantly tachycardic originally on presentation. Urology currently following. Patient has received diuretic therapy. Continue to monitor blood pressures closely. Patient did receive 1 minute of CPR, 1 dose of epinephrine and digoxin in the Yeast Fermentation Attendant. Patient appears to be neurologically intact at this time. 3. Hypertension/hyperlipidemia/degenerative disc disease/advanced age/recent fall/hypothyroidism Complicates care, management, recovery and prognosis. Patient should be n.p.o. for now given respiratory support required. Potentially reinitiate medications tomorrow once respiratory status is improved. Patient did have a fall, but does not appear to have any external signs of injury. TIME: 80 minutes critical care time spent addressing patient's acute hypoxic respiratory failure, congestive heart failure, review of all data and collaboration with care team Code Visit Procedures: Other Procedure - See Report - [id number] - 80 minutes CC time
[2017-09-16 12:29] LABS: CPK Total, Creatine Kinase 183 U/L (26-192)
--- NOTE | 2017-09-16 12:31 | CON.PCM_ITS ---
Problem List (1) Acute respiratory failure with hypoxia Status: Acute (2) Acute systolic (congestive) heart failure Status: Suspected Comment: EF 20% (3) Segmental and somatic dysfunction of cervical region Status: Acute (4) Segmental and somatic dysfunction of lumbar region Status: Acute (5) Segmental and somatic dysfunction of thoracic region Status: Acute (6) CAD (coronary artery disease) Status: Chronic Qualifiers: Coronary Disease-Associated Artery/Lesion type: [place] artery [place] vs. transplanted heart: [place] heart Associated angina: with unstable angina Qualified Code(s): I25.110 - Atherosclerotic heart disease of [place] coronary artery with unstable angina pectoris (7) DDD (degenerative disc disease), lumbar Status: Chronic (8) Hyperlipidemia Status: Chronic Qualifiers: Hyperlipidemia type: pure hypercholesterolemia (9) Hypertension Status: Chronic Qualifiers: Hypertension type: essential hypertension (10) Other skilled nursing (current) drug therapy Status: Chronic Reason for Consult Date of Consultation: 09/16/17 Reason for Consultation: Acute hypoxic respiratory failure History of Present Illness: The patient is a 77 year old F, with past medical history listed below, presented to [facility] on 09/15/2017 secondary to fall and chest pain. Patient reportedly had fallen near the garage and hit the back of her head and elbow and shortly thereafter had retrosternal chest pain described as 7 out of 10 with non-radiation, but associated with nausea and shortness of breath. After evaluation in the emergency room, patient was admitted to the PCU for further monitoring. Some A. fib was noted overnight. This morning, patient was taken for cardiac catheterization. Patient reportedly had a lesion that was concerning, so humanities professor was called. Asif WYLIE was called at 10:35 AM. I did present to the [facility] for evaluation, but was told that everything was okay and sent away. At approximately 11:10 AM, I was notified by Dr. Das that the patient was having respiratory difficulty with hypoxemia. Patient had been given 40 of Lasix, but would be coming to the intensive care unit for further monitoring. At 11:20 AM, the patient arrived to the intensive care unit diaphoretic, clammy , pale and minimally responsive. Patient was noted to have a saturation of 62% at that time by finger pulse oximetry. Lung auscultation showed rales in all lung barnett. Patient stated that she was a full code. Patient was immediately started on BiPAP therapy with 100% FiO2. Initial settings of 10/6 yielded saturations in the 70s. Pressures were continuously increased at the bedside to a peak of 20/16 with 100% FiO2. Test x-ray was obtained showing bilateral interstitial infiltrates, consistent with pulmonary edema. ABG was obtained at that time showing adequate ventilation. Patient had approximately 400 cc of urine output at that time secondary Lasix. Did discuss with Dr. Das and plan to monitor patient on BiPAP therapy. Patient's [id number] and friend were in the waiting room. They were updated on patient's condition. Patient is able to provide short answers, but is not readily conversant. Patient's color has improved after initiation of BiPAP therapy. Per family present and medical record, patient did not have any prodromal symptoms such as fever, chills, nausea, vomiting, congestion or shortness of breath prior to heart catheterization. Past Medical History Past Medical History (Chronic Problems): Chronic Problems (Last Reviewed 09/11/17 @ 15:48 by Lolita Woodson) DDD (degenerative disc disease), lumbar (Chronic) Other chest pain (Chronic) Abnormal stress test (Chronic) Hypertension (Chronic) Hyperlipidemia (Chronic) Other skilled nursing (current) drug therapy (Chronic) CAD (coronary artery disease) (Chronic) Allergies codeine Allergy (Verified 09/15/17 21:04) Other oxycodone HCl [From OxyContin] Allergy (Verified 09/15/17 21:04) Other Home Medications: Ambulatory Orders Medication Instructions Recorded Aspirin [Adult Low Dose Aspirin EC] 81 mg PO DAILY 02/22/16 atorvastatin 20 mg tablet 20 mg PO QHS #90 tab 06/30/17 lisinopril 20 mg tablet 20 mg PO DAILY #90 tab 06/30/17 Levothyroxine [Synthroid] 25 mcg PO DAILY 09/15/17 Surgical History: appendectomy, total knee arthroplasty, - - section. 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 No pneumothorax was appreciated. - Physical Exam General: - - RASS -2. Conversational dyspnea noted. Good BiPAP synchrony noted. Appears stated age. Color improved significantly with initiation of BiPAP therapy. HEENT: Atraumatic, PERRLA, EOMI, Normocephalic, - - Conjunctive are improved. Slight scleral injection on initial presentation. Oral: No Gingival or Mucosal Lesions/ Ulcerations, Dry Mucosa Neck: Supple, No JVD, No Nodes, Trachea Midline Lungs: No rhonchi, No wheeze, Rales - In all lung barnett, - - Symmetric chest rise noted Cardiovascular: Normal S1, Normal S2, No murmurs, No rub noted, No Gallop, Tachycardic Abdomen: Bowel Sounds Present, Soft, Non Tender, Non-Distended, Obese Extremities: No cyanosis, No edema, Diminished Peripheral Pulses Skin: No rashes, No breakdown Musculoskeletal: No Tenderness to Palpation of Joints or Extremities Lymphatic: No Cervical, Supraclavicular, or Inguinal Adenopathy Neurological: Cranial nerves II-XII grossly intact, Neuro grossly intact, Sensory exam intact to light touch and pain Psych/Mental Status: Anxious, Flat Affect, Restless Vital Signs Temp Pulse Resp BP Pulse Ox 37.1 C 80 16 99/67 82 09/16/17 04:50 09/16/17 11:30 09/16/17 11:30 09/16/17 09:00 09/16/17 11:30 Oxygen Flow Rate (L/min) 2 Oxygen Delivery Method Nasal Cannula Weight: 74.4 kg Body Mass Index (BMI) 29.9 Intake and Output for Last 24 Hours 09/14/17 09/15/17 09/16/17 23:59 23:59 23:59 Intake Total 282 / 282 Output Total 300 / 300 Balance - Laboratory Tests Past 24 Hrs 09/16/17 09/16/17 09/16/17 01:15 05:45 05:45 WBC 8.9 RBC 3.95 L Hgb 10.3 L Hct 32.7 L MCV 82.8 MCH 26.1 L MCHC 31.5 L RDW 14.6 RDW Differential 44.5 H Plt Count 198 MPV 10.7 Immature Gran % (Auto) 0.100 Neut % (Auto) 85.1 H Lymph % (Auto) 11.4 L [place] % (Auto) 3.2 Eos % (Auto) 0.1 Baso % (Auto) 0.1 Absolute Neuts (auto) 7.5 Absolute Lymphs (auto) 1.01 Total Counted Not Reportable PT INR APTT Activated Clotting Time Specimen Type Sample Site pH Bicarbonate Actual POC Total CO2 Base Excess O2 Saturation O2 % ABG pCO2 ABG pO2 Respiration Rate O2 Delivery Device EPAP IPAP Blood Gas Notified Whom Blood Gas Notified Time Sodium 143 Potassium 3.6 Chloride 110 H Carbon Dioxide 24.0 Anion Gap 9 BUN 19 H Creatinine 0.96 Estim Creat Clear Calc 39.43 Est GFR (MDRD) Af Amer 72 Est GFR (MDRD) Non-Af 60 BUN/Creatinine Ratio 19.7 Glucose 120 H Lactic Acid Calcium 8.5 Phosphorus Magnesium Total Creatine Kinase Troponin I 1.64 H* 09/16/17 09/16/17 09/16/17 05:45 05:45 10:54 WBC RBC Hgb Hct MCV MCH MCHC RDW RDW Differential Plt Count MPV Immature Gran % (Auto) Neut % (Auto) Lymph % (Auto) [place] % (Auto) Eos % (Auto) Baso % (Auto) Absolute Neuts (auto) Absolute Lymphs (auto) Total Counted PT 14.6 INR 1.1 APTT 41.0 H Activated Clotting Time 230 H Specimen Type Sample Site pH Bicarbonate Actual POC Total CO2 Base Excess O2 Saturation O2 % ABG pCO2 ABG pO2 Respiration Rate O2 Delivery Device EPA IPAP Blood Gas Notified Whom Blood Gas Notified Time Sodium Potassium Chloride Carbon Dioxide Anion Gap BUN Creatinine Estim Creat Clear Calc Est GFR (MDRD) Af Amer Est GFR (MDRD) Non-Af BUN/Creatinine Ratio Glucose Lactic Acid Calcium Phosphorus Magnesium Total Creatine Kinase Troponin I 3.76 H* 09/16/17 09/16/17 09/16/17 11:44 11:55 11:55 WBC RBC Hgb Hct MCV MCH MCHC RDW RDW Differential Plt Count MPV Immature Gran % (Auto) Neut % (Auto) Lymph % (Auto) [place] % (Auto) Eos % (Auto) Baso % (Auto) Absolute Neuts (auto) Absolute Lymphs (auto) Total Counted PT INR APTT Activated Clotting Time Specimen Type ART Sample Site L Radial pH 7.37 Bicarbonate Actual 19.5 L POC Total CO2 20 Base Excess -6 L O2 Saturation 84 L O2 % 100 ABG pCO2 33.4 L ABG pO2 49 L Respiration Rate 12 O2 Delivery Device Bi / C PAP EPAP 14 IPAP 20 Blood Gas Notified Whom ICU MD Blood Gas Notified Time 1143 Sodium Potassium Chloride Carbon Dioxide Anion Gap BUN Creatinine Estim Creat Clear Calc Est GFR (MDRD) Af Amer Est GFR (MDRD) Non-Af BUN/Creatinine Ratio Glucose Lactic Acid Calcium Phosphorus Magnesium Total Creatine Kinase Pending Troponin I Pending 09/16/17 09/16/17 09/16/17 11:55 11:55 11:55 WBC 12.6 H RBC 4.25 Hgb 11.2 L Hct 35.6 L MCV 83.8 MCH 26.4 L MCHC 31.5 L RDW 14.8 H RDW Differential 45.2 H Plt Count 218 MPV 10.8 Immature Gran % (Auto) 0.100 Neut % (Auto) 90.1 H Lymph % (Auto) 5.3 L [place] % (Auto) 4.3 Eos % (Auto) 0.1 Baso % (Auto) 0.1 Absolute Neuts (auto) 11.4 H Absolute Lymphs (auto) 0.67 L Total Counted Not Reportable PT INR APTT Activated Clotting Time Specimen Type Sample Site pH Bicarbonate Actual POC Total CO2 Base Excess O2 Saturation O2 % ABG pCO2 ABG pO2 Respiration Rate O2 Delivery Device EPAP IPAP Blood Gas Notified Whom Blood Gas Notified Time Sodium 141 Potassium 3.5 Chloride 108 H Carbon Dioxide 23.0 Anion Gap 10 BUN 19 H Creatinine 1.26 H Estim Creat Clear Calc 30.04 Est GFR (MDRD) Af Amer 53 L Est GFR (MDRD) Non-Af 44 L BUN/Creatinine Ratio 15.1 Glucose 228 H Lactic Acid Pending Calcium 8.3 L Phosphorus 4.2 Magnesium 1.8 Total Creatine Kinase Troponin I 09/16/17 11:55 WBC RBC Hgb Hct MCV MCH MCHC RDW RDW Differential Plt Count MPV Immature Gran % (Auto) Neut % (Auto) Lymph % (Auto) [place] % (Auto) Eos % (Auto) Baso % (Auto) Absolute Neuts (auto) Absolute Lymphs (auto) Total Counted PT INR APTT Activated Clotting Time Specimen Type Sample Site pH Bicarbonate Actual POC Total CO2 Base Excess O2 Saturation O2 % ABG pCO2 ABG pO2 Respiration Rate O2 Delivery Device EPAP IPAP Blood Gas Notified Whom Blood Gas Notified Time Sodium Potassium Chloride Carbon Dioxide Anion Gap BUN Creatinine Estim Creat Clear Calc Est GFR (MDRD) Af Amer Est GFR (MDRD) Non-Af BUN/Creatinine Ratio Glucose Lactic Acid Calcium Phosphorus Cancelled Magnesium Cancelled Total Creatine Kinase Troponin I Clinical Impression(s) from Imaging Studies Chest X-Ray 09/15/17 21:47 IMPRESSION: There is mild enlargement of the cardiac silhouette with mild edema. There is no obvious effusion. There is minimal bibasilar atelectasis. Electronically Signed: Keri Freire MD at 22:16 EDT Tel Direct: [phone], Service support , Assessment/Plan Active and Suspected Problems (Last Reviewed 09/11/17 @ 15:48 by Lolita Woodson) Acute respiratory failure with hypoxia (Acute) Acute systolic (congestive) heart failure (Suspected) EF 20% RECOMMENDATIONS: 1. Continue BiPAP therapy, possible intubation 2. Diuresis as indicated 3. N.p.o. given high BiPAP requirements 4. Anticoagulation per cardiology IMPRESSIONS: 1. Acute hypoxic respiratory failure Etiology is unclear at this time. Patient with a very large AA gradient. Differential diagnosis would include flash pulmonary edema from acute on chronic systolic congestive heart failure, air embolism versus PE, anaphylactoid reaction. Patient with significant pulmonary edema noted on chest x-ray. Working diagnosis is flash pulmonary edema secondary to acute on chronic systolic congestive heart failure. Patient does appear to be responding to Lasix and nitroglycerin. Did discuss with the family. Patient may need to be intubated if oxygen tension continues to rise. However, if patient can achieve diuresis with improvement of oxygen transfer, possibly be able to wean BiPAP therapy without intubation. 2. Acute on chronic systolic congestive heart failure Patient on aspirin, JANES inhibitor and statin at baseline. She was significantly tachycardic originally on presentation. Urology currently following. Patient has received diuretic therapy. Continue to monitor blood pressures closely. Patient did receive 1 minute of CPR, 1 dose of epinephrine and digoxin in the [facility]. Patient appears to be neurologically intact at this time. 3. Hypertension/hyperlipidemia/degenerative disc disease/advanced age/ recent fall/hypothyroidism Complicates care, management, recovery and prognosis. Patient should be n.p.o. for now given respiratory support required. Potentially reinitiate medications tomorrow once respiratory status is improved. Patient did have a fall, but does not appear to have any external signs of injury. TIME: 80 minutes critical care time spent addressing patient's acute hypoxic respiratory failure, congestive heart failure, review of all data and collaboration with care team Code Visit Procedures: Other Procedure - See Report - [id number] - 80 minutes CC time
--- NOTE | 2017-09-16 12:54 | PCM.PN.HOSP ---
Patient Problems: Active and Suspected Problems (Last Reviewed 09/11/17 @ 15:48 by Lolita Woodson) Acute respiratory failure with hypoxia (Acute) Acute systolic (congestive) heart failure (Suspected) EF 20% NSTEMI (non-ST elevated myocardial infarction) (Acute) Cardiopulmonary arrest (Acute) BRENT (acute kidney injury) (Acute) Subjective: Patient went to interventional catheterization. Patient had noted air embolization in the patient developed cardiopulmonary arrest. Patient did have brief CPR and did receive epinephrine. Patient then developed SVT and then received 0.25 mg of digoxin. Patient had a intravascular ultrasound but no stent was placed. Following that patient was notably hypoxic with pulse ox and 50% range. Patient was admitted as per standard protocol to the ICU and was put on BiPAP. Patient was given Lasix and her oxygenation has improved with 100% oxygen through the BiPAP to 90-93%. Patient is awake and does talk but it is difficult to understand her underneath the the BiPAP. NITHYA INESSA was called and was quickly rescinded. Upon my arrival to the catheterization suite I saw Dr. Das, who informed me that it must have been accidentally called. Vitals/I&O's: Vital Signs Temp Pulse Resp BP Pulse Ox 37.1 C 80 16 99/67 82 09/16/17 04:50 09/16/17 11:30 09/16/17 11:30 09/16/17 09:00 09/16/17 11:30 Oxygen Flow Rate (L/min) 2 Oxygen Delivery Method Nasal Cannula Weight: 74.4 kg Body Mass Index (BMI) 29.9 Intake and Output for Last 24 Hours 09/14/17 09/15/17 09/16/17 23:59 23:59 23:59 Intake Total 282 / 282 Output Total 300 / 300 Balance - General: - - On BiPAP. A week. Conversant but unable to understand her underneath the BiPAP. HEENT: Atraumatic, Normocephalic Neck: No Nodes, Thyroid Normal Size and Texture Lungs: Diminished, - - Breath sounds bilaterally Cardiovascular: Regular rate, Regular Rhythm, Normal S1, Normal S2, No murmurs Abdomen: Bowel Sounds Present, Soft, Non Tender, Non-Distended, No Hepato-splenomegaly Extremities: No edema, No Calf Tenderness Skin: No rashes, No breakdown Musculoskeletal: No Tenderness to Palpation of Joints or Extremities, No Muscle Wasting Neurological: Neuro grossly intact, Muscle tone normal Psych/Mental Status: Normal Affect, Appropriate Laboratory Results 09/16/17 01:15: Troponin I 1.64 H* 09/16/17 05:45: WBC 8.9, RBC 3.95 L, Hgb 10.3 L, Hct 32.7 L, MCV 82.8, MCH 26.1 L, MCHC 31.5 L, RDW 14.6, RDW Differential 44.5 H, Plt Count 198, MPV 10.7, Immature Gran % (Auto) 0.100, Neut % (Auto) 85.1 H, Lymph % (Auto) 11.4 L, [place] % (Auto) 3.2, Eos % (Auto) 0.1, Baso % (Auto) 0.1, Absolute Neuts (auto) 7.5, Absolute Lymphs (auto) 1.01, Total Counted Not Reportable 09/16/17 05:45: Sodium 143, Potassium 3.6, Chloride 110 H, Carbon Dioxide 24.0, Anion Gap 9, BUN 19 H, Creatinine 0.96, Estim Creat Clear Calc 39.43, Est GFR (MDRD) Af Amer 72, Est GFR (MDRD) Non-Af 60, BUN/Creatinine Ratio 19.7, Glucose 120 H, Calcium 8.5 09/16/17 05:45: Troponin I 3.76 H* 09/16/17 05:45: PT 14.6, INR 1.1, APTT 41.0 H 09/16/17 10:54: Activated Clotting Time 230 H 09/16/17 11:44: Specimen Type ART, Sample Site L Radial, pH 7.37, Bicarbonate Actual 19.5 L, POC Total CO2 20, Base Excess -6 L, O2 Saturation 84 L, O2 % 100, ABG pCO2 33.4 L, ABG pO2 49 L, Respiration Rate 12, O2 Delivery Device Bi / C PAP, EPAP 14, IPAP 20, Blood Gas Notified Whom ICU , Blood Gas Notified Time 1143 09/16/17 11:55: Troponin I Pending 09/16/17 11:55: Total Creatine Kinase 183 09/16/17 11:55: WBC 12.6 H, RBC 4.25, Hgb 11.2 L, Hct 35.6 L, MCV 83.8, MCH 26.4 L, MCHC 31.5 L, RDW 14.8 H, RDW Differential 45.2 H, Plt Count 218, MPV 10.8, Immature Gran % (Auto) 0.100, Neut % (Auto) 90.1 H, Lymph % (Auto) 5.3 L, [place] % (Auto) 4.3, Eos % (Auto) 0.1, Baso % (Auto) 0.1, Absolute Neuts (auto) 11.4 H, Absolute Lymphs (auto) 0.67 L, Total Counted Not Reportable 09/16/17 11:55: Sodium 141, Potassium 3.5, Chloride 108 H, Carbon Dioxide 23.0, Anion Gap 10, BUN 19 H, Creatinine 1.26 H, Estim Creat Clear Calc 30.04, Est GFR (MDRD) Af Amer 53 L, Est GFR (MDRD) Non-Af 44 L, BUN/Creatinine Ratio 15.1, Glucose 228 H, Calcium 8.3 L, Phosphorus 4.2, Magnesium 1.8 09/16/17 11:55: Lactic Acid Pending 09/16/17 11:55: Phosphorus Cancelled, Magnesium Cancelled Chest x-ray reviewed and showed bilateral pulmonary edema. Current Medications Acetaminophen (Tylenol) 650 mg PO Q6H PRN PRN PRN Reason: Headache, fever, pain [facility] Admin: 09/16/17 05:50 Dose: 81 mg Atorvastatin Calcium (Lipitor) 20 mg PO QHS [facility] Atorvastatin Calcium (Lipitor) 40 mg PO QHS [facility] Atropine Sulfate () 0.5 mg IV UD PRN PRN Reason: HR <50 bpm Carvedilol (Coreg) 3.125 mg PO BID [facility] Clopidogrel Bisulfate (Plavix) 75 mg PO DAILY [facility] Enoxaparin Sodium (Lovenox) 40 mg SC DAILY [facility] Potassium Chloride/Sodium Chloride () 1,000 mls @ 75 mls/hr IV .[id number] [facility] Last Admin: 09/16/17 01:44 Dose: 75 mls/hr Nitroglycerin/Dextrose 25 mg/ (N/A) 250 mls @ 3 mls/hr IV .[id number] [facility] PRN Reason: 5 MCG/MIN Last Admin: 05/05/18 02:10 Dose: 3 mls/hr Sodium Chloride () 1,000 mls @ 0 mls/hr IV .[id number] [facility] PRN Reason: KVO Levothyroxine Sodium (Synthroid) 25 mcg PO DAILY@0600 [facility] Last Admin: 09/16/17 05:49 Dose: 25 mcg Lisinopril (Zestril) 20 mg PO DAILY [facility] Last Admin: 09/16/17 05:49 Dose: 20 mg Magnesium Hydroxide (Milk Of Magnesia) 30 ml PO DAILY PRN PRN Reason: Constipation Ondansetron HCl (Zofran) 4 mg IV Q6H PRN PRN PRN Reason: NAUSEA/VOMITING Sodium Chloride () 5 - 30 ml IV UD PRN PRN Reason: SALINE FLUSH Sodium Chloride () 500 ml IV BOLUS PRN PRN Reason: VASO-VAGAL PROTOCOL Medical Necessity - Tobacco Use Smoking Status: Never smoker Assessment/Plan Active and Suspected Problems (Last Reviewed 09/11/17 @ 15:48 by Lolita Woodson) Acute respiratory failure with hypoxia (Acute) Acute systolic (congestive) heart failure (Suspected) EF 20% NSTEMI (non-ST elevated myocardial infarction) (Acute) Cardiopulmonary arrest (Acute) BRENT (acute kidney injury) (Acute) 1. Non-ST elevation myocardial infarction No intervention managed by cardiology. Aspirin, Plavix, carvedilol, high intensity statin. Further management per cardiology 2. Cardiopulmonary arrest Unclear of the circumstances of that and if that was related with the air embolization from the cardiac catheterization or some other process. Patient is on the monitor at this time 3. Acute heart failure with reduced ejection fraction Ejection fraction is 20% with mild pulmonary hypertension Continue with Lasix, carvedilol and lisinopril Does appear to be significantly reduced from 2016 where her left heart catheterization showed her ejection fraction was 70%. Further management per cardiology. 4. Acute hypoxic respiratory failure Secondary to heart failure in good pulmonary arrest Improving with diuresis and BiPAP Wean BiPAP as tolerated Pulmonary following 5. Acute kidney injury Creatinine has jumped from 0.96-1.26. Avoid IV fluids as patient is clinically volume overloaded at this time Monitor closely in regards to the patient actually receiving Lasix. 6. DVT prophylaxis with Lovenox Code Visit Inpatient E&M: 40153 [facility] L[facility]
--- NOTE | 2017-09-16 13:04 | PN_ITS ---
Patient Problems: Active and Suspected Problems (Last Reviewed 09/11/17 @ 15:48 by Lolita Woodson) Acute respiratory failure with hypoxia (Acute) Acute systolic (congestive) heart failure (Suspected) EF 20% NSTEMI (non-ST elevated myocardial infarction) (Acute) Cardiopulmonary arrest (Acute) BRENT (acute kidney injury) (Acute) Subjective: Patient went to interventional catheterization. Patient had noted air embolization in the patient developed cardiopulmonary arrest. Patient did have brief CPR and did receive epinephrine. Patient then developed SVT and then received 0.25 mg of digoxin. Patient had a intravascular ultrasound but no stent was placed. Following that patient was notably hypoxic with pulse ox and 50% range. Patient was admitted as per standard protocol to the ICU and was put on BiPAP. Patient was given Lasix and her oxygenation has improved with 100 % oxygen through the BiPAP to 90-93%. Patient is awake and does talk but it is difficult to understand her underneath the the BiPAP. NITHYA INESSA was called and was quickly rescinded. Upon my arrival to the catheterization suite I saw Dr. Das, who informed me that it must have been accidentally called. Vitals/I&O's: Vital Signs Temp Pulse Resp BP Pulse Ox 37.1 C 80 16 99/67 82 09/16/17 04:50 09/16/17 11:30 09/16/17 11:30 09/16/17 09:00 09/16/17 11:30 Oxygen Flow Rate (L/min) 2 Oxygen Delivery Method Nasal Cannula Weight: 74.4 kg Body Mass Index (BMI) 29.9 Intake and Output for Last 24 Hours 09/14/17 09/15/17 09/16/17 23:59 23:59 23:59 Intake Total 282 / 282 Output Total 300 / 300 Balance - General: - - On BiPAP. A week. Conversant but unable to understand her underneath the BiPAP. HEENT: Atraumatic, Normocephalic Neck: No Nodes, Thyroid Normal Size and Texture Lungs: Diminished, - - Breath sounds bilaterally Cardiovascular: Regular rate, Regular Rhythm, Normal S1, Normal S2, No murmurs Abdomen: Bowel Sounds Present, Soft, Non Tender, Non-Distended, No Hepato- splenomegaly Extremities: No edema, No Calf Tenderness Skin: No rashes, No breakdown Musculoskeletal: No Tenderness to Palpation of Joints or Extremities, No Muscle Wasting Neurological: Neuro grossly intact, Muscle tone normal Psych/Mental Status: Normal Affect, Appropriate Laboratory Results 09/16/17 01:15: Troponin I 1.64 H* 09/16/17 05:45: WBC 8.9, RBC 3.95 L, Hgb 10.3 L, Hct 32.7 L, MCV 82.8, MCH 26.1 L, MCHC 31.5 L, RDW 14.6, RDW Differential 44.5 H, Plt Count 198, MPV 10.7, Immature Gran % (Auto) 0.100, Neut % (Auto) 85.1 H, Lymph % (Auto) 11.4 L, [place] % (Auto) 3.2, Eos % (Auto) 0.1, Baso % (Auto) 0.1, Absolute Neuts (auto) 7.5, Absolute Lymphs (auto) 1.01, Total Counted Not Reportable 09/16/17 05:45: Sodium 143, Potassium 3.6, Chloride 110 H, Carbon Dioxide 24.0, Anion Gap 9, BUN 19 H, Creatinine 0.96, Estim Creat Clear Calc 39.43, Est GFR ( MDRD) Af Amer 72, Est GFR (MDRD) Non-Af 60, BUN/Creatinine Ratio 19.7, Glucose 120 H, Calcium 8.5 09/16/17 05:45: Troponin I 3.76 H* 09/16/17 05:45: PT 14.6, INR 1.1, APTT 41.0 H 09/16/17 10:54: Activated Clotting Time 230 H 09/16/17 11:44: Specimen Type ART, Sample Site L Radial, pH 7.37, Bicarbonate Actual 19.5 L, POC Total CO2 20, Base Excess -6 L, O2 Saturation 84 L, O2 % 100 , ABG pCO2 33.4 L, ABG pO2 49 L, Respiration Rate 12, O2 Delivery Device Bi / C PAP, EPAP 14, IPAP 20, Blood Gas Notified Whom ICU , Blood Gas Notified Time 1143 09/16/17 11:55: Troponin I Pending 09/16/17 11:55: Total Creatine Kinase 183 09/16/17 11:55: WBC 12.6 H, RBC 4.25, Hgb 11.2 L, Hct 35.6 L, MCV 83.8, MCH 26.4 L, MCHC 31.5 L, RDW 14.8 H, RDW Differential 45.2 H, Plt Count 218, MPV 10.8, Immature Gran % (Auto) 0.100, Neut % (Auto) 90.1 H, Lymph % (Auto) 5.3 L, [place] % (Auto) 4.3, Eos % (Auto) 0.1, Baso % (Auto) 0.1, Absolute Neuts (auto) 11.4 H, Absolute Lymphs (auto) 0.67 L, Total Counted Not Reportable 09/16/17 11:55: Sodium 141, Potassium 3.5, Chloride 108 H, Carbon Dioxide 23.0, Anion Gap 10, BUN 19 H, Creatinine 1.26 H, Estim Creat Clear Calc 30.04, Est GFR (MDRD) Af Amer 53 L, Est GFR (MDRD) Non-Af 44 L, BUN/Creatinine Ratio 15.1, Glucose 228 H, Calcium 8.3 L, Phosphorus 4.2, Magnesium 1.8 09/16/17 11:55: Lactic Acid Pending 09/16/17 11:55: Phosphorus Cancelled, Magnesium Cancelled Chest x-ray reviewed and showed bilateral pulmonary edema. Current Medications Acetaminophen (Tylenol) 650 mg PO Q6H PRN PRN PRN Reason: Headache, fever, pain [facility] Last Admin: 09/16/17 05:50 Dose: 81 mg Atorvastatin Calcium (Lipitor) 20 mg PO QHS [facility] Atorvastatin Calcium (Lipitor) 40 mg PO QHS [facility] Atropine Sulfate () 0.5 mg IV UD PRN PRN Reason: HR <50 bpm Carvedilol (Coreg) 3.125 mg PO BID [facility] Clopidogrel Bisulfate (Plavix) 75 mg PO DAILY [facility] Enoxaparin Sodium (Lovenox) 40 mg SC DAILY [facility] Potassium Chloride/Sodium Chloride () 1,000 mls @ 75 mls/hr IV .[id number] [facility] Last Admin: 09/16/17 01:44 Dose: 75 mls/hr Nitroglycerin/Dextrose 25 mg/ (N/A) 250 mls @ 3 mls/hr IV .[id number] [facility] PRN Reason: 5 MCG/MIN Last Admin: 05/05/18 02:10 Dose: 3 mls/hr Sodium Chloride () 1,000 mls @ 0 mls/hr IV .Q0M DEAN PRN Reason: KVO Levothyroxine Sodium (Synthroid) 25 mcg PO DAILY@0600 [facility] Last Admin: 09/16/17 05:49 Dose: 25 mcg Lisinopril (Zestril) 20 mg PO DAILY [facility] Last Admin: 09/16/17 05:49 Dose: 20 mg Magnesium Hydroxide (Milk Of Magnesia) 30 ml PO DAILY PRN PRN Reason: Constipation Ondansetron HCl (Zofran) 4 mg IV Q6H PRN PRN PRN Reason: NAUSEA/VOMITING Sodium Chloride () 5 - 30 ml IV UD PRN PRN Reason: SALINE FLUSH Sodium Chloride () 500 ml IV BOLUS PRN PRN Reason: VASO-VAGAL PROTOCOL Medical Necessity - Tobacco Use Smoking Status: Never smoker Assessment/Plan Active and Suspected Problems (Last Reviewed 09/11/17 @ 15:48 by Lolita Woodson) Acute respiratory failure with hypoxia (Acute) Acute systolic (congestive) heart failure (Suspected) EF 20% NSTEMI (non-ST elevated myocardial infarction) (Acute) Cardiopulmonary arrest (Acute) BRENT (acute kidney injury) (Acute) 1. Non-ST elevation myocardial infarction * No intervention managed by cardiology. * Aspirin, Plavix, carvedilol, high intensity statin. * Further management per cardiology 2. Cardiopulmonary arrest * Unclear of the circumstances of that and if that was related with the air embolization from the cardiac catheterization or some other process. * Patient is on the monitor at this time 3. Acute heart failure with reduced ejection fraction * Ejection fraction is 20% with mild pulmonary hypertension * Continue with Lasix, carvedilol and lisinopril * Does appear to be significantly reduced from 2016 where her left heart catheterization showed her ejection fraction was 70%. * Further management per cardiology. 4. Acute hypoxic respiratory failure * Secondary to heart failure in good pulmonary arrest * Improving with diuresis and BiPAP * Wean BiPAP as tolerated * Pulmonary following 5. Acute kidney injury * Creatinine has jumped from 0.96-1.26. * Avoid IV fluids as patient is clinically volume overloaded at this time * Monitor closely in regards to the patient actually receiving Lasix. 6. DVT prophylaxis with Lovenox Code Visit Inpatient E&M: [id number] [facility] Hosp L3
[2017-09-16 13:08] LABS: Lactic Acid 4.5 mmol/L (0.4-2.0)
--- NOTE | 2017-09-16 13:23 | PCM.PN.BLA ---
Progress Note Patient seen and evaluated back in the ICU appears to be doing much better at this time still on BiPAP mask but coherent blood pressure 142/70 heart rate of in the 70s. Also discussed with family about the events that went on. Plan would be to observe the patient in the ICU overnight medications adjusted appropriately. Patient stable at this time.
[2017-09-16 16:02] LABS: Reflex Lactate? Y
[2017-09-16] MEDS: 0.9% NaCl Peripheral Flush Adult/Peds IV ×2 (17:45→20:13)
[2017-09-16] MEDS: Furosemide 40 MG/4 ML Vial IV (17:45)
[2017-09-16 20:06] LABS: CPK Total, Creatine Kinase 256 U/L (26-192)
[2017-09-16] MEDS: Atorvastatin Calcium 40 MG Tablet PO (20:13)
[2017-09-16] MEDS: Carvedilol 3.125 MG TABLET PO (20:13)
[2017-09-16 23:37] LABS: CPK Total, Creatine Kinase 252 U/L (26-192)
[2017-09-17] VITALS (28 sets, daily range): BP systolic 85–148; BP diastolic 48–84; PULSE 67–87; RESP 12–23; TEMP 36.8–38.1; O2SAT 94–100
[2017-09-17] MEDS: Levothyroxine 25 MCG TABLET PO (05:10)
[2017-09-17] MEDS: 0.9% NaCl Peripheral Flush Adult/Peds IV ×2 (05:23→10:14)
[2017-09-17] MEDS: CHLORHEXIDINE GLUC 2% CLOTH 1 EACH TOWELETTE TOPICAL (05:29)
--- NOTE | 2017-09-17 05:55 | EKG12_ITS ---
Test Reason : AM Blood Pressure : / mmHG Vent. Rate : 080 BPM Atrial Rate : 080 BPM P-R Int : 146 ms QRS Dur : 080 ms QT Int : 422 ms P-R-T Axes : 069 047 191 degrees QTc Int : 486 ms Normal sinus rhythm ST & T wave abnormality, consider anterolateral ischemia Prolonged QT Abnormal ECG Confirmed by ISAEL RAMSAY, ZANE ([id number]), assistant production editor WENDY WILLOUGHBY ([id number]) on 09/20/2017 2:34:19 PM Referred By: GUNNER Confirmed By:ZANE KIRKLAND MD
[2017-09-17 06:08] LABS: Absolute Lymphocyte Count 1.06 X10^3/ul (0.83-4.51); Absolute Neutrophil Count 8.6 X10^3/uL (2.0-7.7); Basophil# 0.01 X10^3/uL; Basophil% 0.1 % (0-1); Eosinophil# 0.01 X10^3/uL; Eosinophils% 0.1 % (0-5); Hematocrit 33.5 % (37-47); Hemoglobin 10.7 g/dl (12.0-15.0); Lymphocyte # 1.06 X10^3/ul (4.0); Mean Corp Hgb Conc 31.9 g/gl (32-36); Mean Corpuscular Hgb 26.6 pg (27.0-32.0); Mean Corpuscular Volume 83.1 fL (81-99); Mean Platelet Vol. 11.1 fl (6.2-12.0); Monocyte# 0.83 X10^3/uL; Monocyte% 7.9 % (0-10); Neutrophil # 8.64 X10^3/uL (2.7-7.7); Neutrophil % 81.8 % (47-70); Platelet Count 197 K/mm3 (150-450); RBC Distribution Width CV 14.9 % (11.6-14.6); RBC Distribution Width SD 45.5 fl (35.1-43.9); Red Blood Count 4.03 M/mm3 (4.2-5.4); White Blood Count 10.6 K/mm3 (4.4-11.0)
[2017-09-17 06:13] LABS: Anion Gap 9 (5-15); BUN 25 mg/dL (7-18); BUN/Creat Ratio 22.9 RATIO (10-20); Calcium,Total 8.6 mg/dL (8.5-10.1); Chloride 109 mmol/L (98-107); Creatinine, Serum 1.09 mg/dL (0.55-1.02); EST Glomerular Filtration Rate 52 mL/min (>60); Est Glom Filt Rate - Afr Amer 63 mL/min (>60); Estimated Creatinine Clearance 34.73 ml/min; Glucose 110 mg/dL (74-106); Potassium 3.7 mmol/L (3.5-5.1); Sodium Level 146 mmol/L (136-145)
--- NOTE | 2017-09-17 06:16 | NURSING ---
Pt. taken off bipap and placed on 3L NC. Will monitor.
[2017-09-17 06:28] LABS: POSITIVE COUNT NO; POSITIVE DIFFERENTIAL NO; POSITIVE MORPHOLOGY NO
--- NOTE | 2017-09-17 06:55 | PN_ITS ---
Subjective: Patient did well overnight. Patient did remain on BiPAP therapy throughout the evening. Patient was able to be weaned to a nasal cannula at this morning. No hemodynamic instability was reported. Patient did have a slight elevation in temperature, but no intervention was required. Patient continues to have good urine output following Lasix therapy. General: Alert, Oriented x3, Cooperative, No apparent distress, - - Speaking in full sentences. HEENT: Atraumatic, PERRLA, EOMI, Normocephalic, - - No scleral icterus or injection noted. Oral: Moist Mucosa, No Gingival or Mucosal Lesions/ Ulcerations Neck: Supple, No JVD, No Nodes, Trachea Midline Lungs: Clear to auscultation, Normal air movement, No rhonchi, No wheeze, No rales, - - Metric expansion. No dullness to percussion. Cardiovascular: Regular rate, Regular Rhythm, Normal S1, Normal S2, No murmurs, No rub noted, No Gallop Abdomen: Bowel Sounds Present, Soft, Non Tender, Non-Distended Extremities: No clubbing, No cyanosis, No edema Skin: No rashes, No breakdown Musculoskeletal: No Tenderness to Palpation of Joints or Extremities, No Muscle Wasting Lymphatic: No Cervical, Supraclavicular, or Inguinal Adenopathy Neurological: Cranial nerves II-XII grossly intact, Motor Exam 5/5 strength throughout, Sensory exam intact to light touch and pain Psych/Mental Status: Alert and oriented to time, place, person, mood and affect Vital Signs Temp Pulse Resp BP Pulse Ox 37.5 C H 67 14 123/64 H 100 09/17/17 06:00 09/17/17 06:00 09/17/17 06:00 09/17/17 06:00 09/17/17 06:00 Oxygen Flow Rate (L/min) 2 Oxygen Delivery Method Bi-pap Weight: 71.2 kg Body Mass Index (BMI) 29.9 Intake and Output for Last 24 Hours 09/15/17 09/16/17 09/17/17 23:59 23:59 23:59 Intake Total 402 / 402 180 / 180 Output Total 3050 / 3050 200 / 200 Balance -2648 / -2648 -20 / -20 Labs (Last 48 Hours) 09/16/17 09/16/17 09/16/17 01:15 05:45 05:45 WBC 8.9 RBC 3.95 L Hgb 10.3 L Hct 32.7 L MCV 82.8 MCH 26.1 L MCHC 31.5 L RDW 14.6 RDW Differential 44.5 H Plt Count 198 MPV 10.7 Immature Gran % (Auto) 0.100 Neut % (Auto) 85.1 H Lymph % (Auto) 11.4 L [place] % (Auto) 3.2 Eos % (Auto) 0.1 Baso % (Auto) 0.1 Absolute Neuts (auto) 7.5 Absolute Lymphs (auto) 1.01 Total Counted Not Reportable PT INR APTT Activated Clotting Time Specimen Type Sample Site pH Bicarbonate Actual POC Total CO2 Base Excess O2 Saturation O2 % ABG pCO2 ABG pO2 Respiration Rate O2 Delivery Device EPAP IPAP Blood Gas Notified Whom Blood Gas Notified Time Sodium 143 Potassium 3.6 Chloride 110 H Carbon Dioxide 24.0 Anion Gap 9 BUN 19 H Creatinine 0.96 Estim Creat Clear Calc 39.43 Est GFR (MDRD) Af Amer 72 Est GFR (MDRD) Non-Af 60 BUN/Creatinine Ratio 19.7 Glucose 120 H Lactic Acid Calcium 8.5 Phosphorus Magnesium Total Creatine Kinase Troponin I 1.64 H* 09/16/17 09/16/17 09/16/17 05:45 05:45 10:54 WBC RBC Hgb Hct MCV MCH MCHC RDW RDW Differential Plt Count MPV Immature Gran % (Auto) Neut % (Auto) Lymph % (Auto) [place] % (Auto) Eos % (Auto) Baso % (Auto) Absolute Neuts (auto) Absolute Lymphs (auto) Total Counted PT 14.6 INR 1.1 APTT 41.0 H Activated Clotting Time 230 H Specimen Type Sample Site pH Bicarbonate Actual POC Total CO2 Base Excess O2 Saturation O2 % ABG pCO2 ABG pO2 Respiration Rate O2 Delivery Device EPAP IPAP Blood Gas Notified Whom Blood Gas Notified Time Sodium Potassium Chloride Carbon Dioxide Anion Gap BUN Creatinine Estim Creat Clear Calc Est GFR (MDRD) Af Amer Est GFR (MDRD) Non-Af BUN/Creatinine Ratio Glucose Lactic Acid Calcium Phosphorus Magnesium Total Creatine Kinase Troponin I 3.76 H* 09/16/17 09/16/17 09/16/17 11:44 11:55 11:55 WBC RBC Hgb Hct MCV MCH MCHC RDW RDW Differential Plt Count MPV Immature Gran % (Auto) Neut % (Auto) Lymph % (Auto) [place] % (Auto) Eos % (Auto) Baso % (Auto) Absolute Neuts (auto) Absolute Lymphs (auto) Total Counted PT INR APTT Activated Clotting Time Specimen Type ART Sample Site L Radial pH 7.37 Bicarbonate Actual 19.5 L POC Total CO2 20 Base Excess -6 L O2 Saturation 84 L O2 % 100 ABG pCO2 33.4 L ABG pO2 49 L Respiration Rate 12 O2 Delivery Device Bi / C PAP EPAP 14 IPAP 20 Blood Gas Notified Whom ICU MD Blood Gas Notified Time 1143 Sodium Potassium Chloride Carbon Dioxide Anion Gap BUN Creatinine Estim Creat Clear Calc Est GFR (MDRD) Af Amer Est GFR (MDRD) Non-Af BUN/Creatinine Ratio Glucose Lactic Acid Calcium Phosphorus Magnesium Total Creatine Kinase 183 Troponin I 5.36 H* 09/16/17 09/16/17 09/16/17 11:55 11:55 11:55 WBC 12.6 H RBC 4.25 Hgb 11.2 L Hct 35.6 L MCV 83.8 MCH 26.4 L MCHC 31.5 L RDW 14.8 H RDW Differential 45.2 H Plt Count 218 MPV 10.8 Immature Gran % (Auto) 0.100 Neut % (Auto) 90.1 H Lymph % (Auto) 5.3 L [place] % (Auto) 4.3 Eos % (Auto) 0.1 Baso % (Auto) 0.1 Absolute Neuts (auto) 11.4 H Absolute Lymphs (auto) 0.67 L Total Counted Not Reportable PT INR APTT Activated Clotting Time Specimen Type Sample Site pH Bicarbonate Actual POC Total CO2 Base Excess O2 Saturation O2 % ABG pCO2 ABG pO2 Respiration Rate O2 Delivery Device EPAP IPAP Blood Gas Notified Whom Blood Gas Notified Time Sodium 141 Potassium 3.5 Chloride 108 H Carbon Dioxide 23.0 Anion Gap 10 BUN 19 H Creatinine 1.26 H Estim Creat Clear Calc 30.04 Est GFR (MDRD) Af Amer 53 L Est GFR (MDRD) Non-Af 44 L BUN/Creatinine Ratio 15.1 Glucose 228 H Lactic Acid 4.5 H* Calcium 8.3 L Phosphorus 4.2 Magnesium 1.8 Total Creatine Kinase Troponin I 09/16/17 09/16/17 09/16/17 11:55 19:40 23:10 WBC RBC Hgb Hct MCV MCH MCHC RDW RDW Differential Plt Count MPV Immature Gran % (Auto) Neut % (Auto) Lymph % (Auto) [place] % (Auto) Eos % (Auto) Baso % (Auto) Absolute Neuts (auto) Absolute Lymphs (auto) Total Counted PT INR APTT Activated Clotting Time Specimen Type Sample Site pH Bicarbonate Actual POC Total CO2 Base Excess O2 Saturation O2 % ABG pCO2 ABG pO2 Respiration Rate O2 Delivery Device EPAP IPAP Blood Gas Notified Whom Blood Gas Notified Time Sodium Potassium Chloride Carbon Dioxide Anion Gap BUN Creatinine Estim Creat Clear Calc Est GFR (MDRD) Af Amer Est GFR (MDRD) Non-Af BUN/Creatinine Ratio Glucose Lactic Acid Calcium Phosphorus Cancelled Magnesium Cancelled Total Creatine Kinase 256 H 252 H Troponin I 09/17/17 09/17/17 05:15 05:15 WBC 10.6 RBC 4.03 L Hgb 10.7 L Hct 33.5 L MCV 83.1 MCH 26.6 L MCHC 31.9 L RDW 14.9 H RDW Differential 45.5 H Plt Count 197 MPV 11.1 Immature Gran % (Auto) 0.100 Neut % (Auto) 81.8 H Lymph % (Auto) 10.0 L [place] % (Auto) 7.9 Eos % (Auto) 0.1 Baso % (Auto) 0.1 Absolute Neuts (auto) 8.6 H Absolute Lymphs (auto) 1.06 Total Counted Not Reportable PT INR APTT Activated Clotting Time Specimen Type Sample Site pH Bicarbonate Actual POC Total CO2 Base Excess O2 Saturation O2 % ABG pCO2 ABG pO2 Respiration Rate O2 Delivery Device EPAP IPAP Blood Gas Notified Whom Blood Gas Notified Time Sodium 146 H Potassium 3.7 Chloride 109 H Carbon Dioxide 28.0 Anion Gap 9 BUN 25 H Creatinine 1.09 H Estim Creat Clear Calc 34.73 Est GFR (MDRD) Af Amer 63 Est GFR (MDRD) Non-Af 52 L BUN/Creatinine Ratio 22.9 H Glucose 110 H Lactic Acid Calcium 8.6 Phosphorus Magnesium Total Creatine Kinase Troponin I Clinical Impression(s) from Imaging Studies Chest X-Ray 09/16/17 11:24 IMPRESSION: 1. Worsening bilateral pulmonary edema versus inflammatory/infectious infiltrates. 2. Borderline to mild cardiac enlargement. Electronically Signed: Dakota Plummer MD at 14:49 EDT , Service support , Medical Necessity - Tobacco Use Smoking Status: Never smoker Assessment/Plan Active and Suspected Problems (Last Reviewed 09/11/17 @ 15:48 by Lolita Woodson) BRENT (acute kidney injury) (Acute) Cardiopulmonary arrest (Acute) NSTEMI (non-ST elevated myocardial infarction) (Acute) Acute respiratory failure with hypoxia (Acute) Acute systolic (congestive) heart failure (Suspected) EF 20% RECOMMENDATIONS: 1. BiPAP breaks as tolerated 2. Diuresis per cardiology 3. We okay to initiate p.o. diet if able to tolerate off BiPAP for 1 hour 4. Anticoagulation per cardiology 5. Possible transfer from ICU later today IMPRESSIONS: 1. Acute hypoxic respiratory failure Patient clinically is acting like the etiology was flash pulmonary edema secondary to acute on chronic systolic congestive heart failure. Patient has responded well to diuretic therapy. Likely okay to decrease diuretic therapy given hypernatremia and hyperchloremia, but defer to cardiology. Will transition BiPAP to as needed. Wean oxygen as tolerated. Likely okay to initiate p.o. diet. 2. Acute on chronic systolic congestive heart failure Patient on aspirin, JANES inhibitor and statin at baseline. She was significantly tachycardic originally on presentation. Cardiology currently following. Patient has received diuretic therapy. Continue to monitor blood pressures closely. Patient did receive 1 minute of CPR, 1 dose of epinephrine and digoxin in the System Development Manager. Patient appears to be neurologically intact at this time. 3. Hypertension/hyperlipidemia/degenerative disc disease/advanced age/ recent fall/hypothyroidism Complicates care, management, recovery and prognosis. Patient should be n.p.o. for now given respiratory support required. Potentially reinitiate medications tomorrow once respiratory status is improved. Patient did have a fall, but does not appear to have any external signs of injury. Code Visit Inpatient E&M: [id number] Subs Hosp L3
--- NOTE | 2017-09-17 10:08 | PCM.PN.CARD ---
Subjectve: Patient seen and evaluated and appears to be much better this morning breathing on 2 L nasal cannula. Was on BiPAP for most of night. Diuresed appropriately. Objective: Vital Signs Temp Pulse Resp BP Pulse Ox 99.6 F H 76 13 116/58 L 96 09/17/17 07:42 09/17/17 07:42 09/17/17 07:42 09/17/17 07:42 09/17/17 07:42 Oxygen Flow Rate (L/min) 2 Oxygen Delivery Method Nasal Cannula Weight: 156 lb 15.506 oz Body Mass Index (BMI) 29.9 Intake and Output for Last 24 Hours 09/15/17 09/16/17 09/17/17 23:59 23:59 23:59 Intake Total 402 / 402 180 / 180 Output Total 3050 / 3050 200 / 200 Balance -2648 / -2648 -20 / -20 General: Awake, Alert, Oriented x 3 HEENT: PERRL, EOMI, Sclera Non Icteric Neck: Supple, Good ROM, No Lymph Node Enlargement Lungs: Clear to auscultation Cardiovascular: Regular Rhythm, Normal S1, Normal S2, No Murmurs, No Rubs, No Gallops Vascular: No Carotid Bruits, Normal Femoral Pulses, Normal Radial Pulses, Normal Dorsalis Pedal Pulse, Normal Posterior Tibial Pulses Abdomen: Bowel Sounds Present, Soft, Non Tender, No HSM, No Organomegaly Extremities: No Cyanosis, No Clubbing, No edema Neurological: No Focal Motor or Sensory Deficit 09/16/17 11:44: pH 7.37, Bicarbonate Actual 19.5 L, POC Total CO2 20, Base Excess -6 L, O2 Saturation 84 L, ABG pCO2 33.4 L, ABG pO2 49 L 09/16/17 11:55: Troponin I 5.36 H* 09/16/17 11:55: WBC 12.6 H, RBC 4.25, Hgb 11.2 L, Hct 35.6 L, MCV 83.8, MCH 26.4 L, MCHC 31.5 L, RDW 14.8 H, RDW Differential 45.2 H, Plt Count 218, MPV 10.8, Immature Gran % (Auto) 0.100, Neut % (Auto) 90.1 H, Lymph % (Auto) 5.3 L, [place] % (Auto) 4.3, Eos % (Auto) 0.1, Baso % (Auto) 0.1, Absolute Neuts (auto) 11.4 H, Total Counted Not Reportable 09/16/17 11:55: Sodium 141, Potassium 3.5, Chloride 108 H, Carbon Dioxide 23.0, Anion Gap 10, BUN 19 H, Creatinine 1.26 H, Est GFR (MDRD) Af Amer 53 L, Est GFR (MDRD) Non-Af 44 L, BUN/Creatinine Ratio 15.1, Glucose 228 H, Calcium 8.3 L, Phosphorus 4.2, Magnesium 1.8 09/16/17 11:55: Lactic Acid 4.5 H* 09/16/17 11:55: Phosphorus Cancelled, Magnesium Cancelled 09/17/17 05:15: WBC 10.6, RBC 4.03 L, Hgb 10.7 L, Hct 33.5 L, MCV 83.1, MCH 26.6 L, MCHC 31.9 L, RDW 14.9 H, RDW Differential 45.5 H, Plt Count 197, MPV 11.1, Immature Gran % (Auto) 0.100, Neut % (Auto) 81.8 H, Lymph % (Auto) 10.0 L, [place] % (Auto) 7.9, Eos % (Auto) 0.1, Baso % (Auto) 0.1, Absolute Neuts (auto) 8.6 H, Total Counted Not Reportable 09/17/17 05:15: Sodium 146 H, Potassium 3.7, Chloride 109 H, Carbon Dioxide 28.0, Anion Gap 9, BUN 25 H, Creatinine 1.09 H, Est GFR (MDRD) Af Amer 63, Est GFR (MDRD) Non-Af 52 L, BUN/Creatinine Ratio 22.9 H, Glucose 110 H, Calcium 8.6 Rhythm: EKG: ECHO: Stress Test: Cardiac Cath: PCI: CT Surgery: Holter monitor: EPS: PPM: CXR: Chest CT Scan: Medical Necessity - Tobacco Use Smoking Status: Never smoker Assessment/Plan 1. Non-ST elevation myocardial infarction She has atypical presentation but currently has non-ST elevation myocardial infarction and had continued chest pain. 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 She underwent an IVUS procedure which determined that the lesion was not significant. She did transient ST elevation and hypotension likely from an air embolism. Recovered well from the above Will be to continue beta-anastacio statin and Plavix 2.[place] cardiac myopathy Patient appears to have the above with severe hypokinesis to akinesis of the entire anterior wall apex as well as inferior apical wall the estimated ejection fraction is approximately 20%. We will plan on aggressively treating with beta-anastacio with carvedilol 6.25 mg twice a day, continue lisinopril 20 mg a day and will recommend re-evaluate echocardiographic evaluation in 3 months. At that time a stress test may also be performed to relook at the left anterior descending artery lesion. 3. Hypertension Blood pressure under good control on the current medical management. We will continue to treat. 4. Risk factor modification We will continue with risk factor modification with high intensity statin. 5. Congestive heart failure-systolic acute The above was likely secondary to the transient hypotension, CPR increased IV fluids and epinephrine which was administered. Patient also had an elevated left ventricular end-diastolic pressure. Was treated with BiPAP as well as intravenous Lasix has diuresed appropriately and at this time appears to be doing well., JANES inhibitor his beta blockers and diuretics will be continued. The above was all discussed with the patient and relatives as well as the ICU team. Thank you for allowing me to participate in the care of your patient. Please don't hesitate to call if any issues arise
[2017-09-17] MEDS: Aspirin E.C. 81 MG Tablet PO (10:13)
[2017-09-17] MEDS: Carvedilol 3.125 MG TABLET PO (10:14)
[2017-09-17] MEDS: Enoxaparin 40 MG/0.4 ML Syringe SC (10:15)
[2017-09-17] MEDS: Furosemide 40 MG/4 ML Vial IV (10:15)
[2017-09-17] MEDS: Lisinopril 20 MG Tablet PO (10:16)
[2017-09-17] MEDS: Clopidogrel Bisulfate 75 MG Tablet PO (10:19)
--- NOTE | 2017-09-17 11:08 | PCM.PN.HOSP ---
Patient Problems: Active and Suspected Problems (Last Reviewed 09/11/17 @ 15:48 by Lolita Woodson) BRENT (acute kidney injury) (Acute) Cardiopulmonary arrest (Acute) NSTEMI (non-ST elevated myocardial infarction) (Acute) Acute respiratory failure with hypoxia (Acute) Acute systolic (congestive) heart failure (Suspected) EF 20% Subjective: Breathing better. No further chest pain. As tolerated staying off of the BiPAP. Vitals/I&O's: Vital Signs Temp Pulse Resp BP Pulse Ox 37.5 C H 78 18 123/69 H 98 09/17/17 10:00 09/17/17 10:00 09/17/17 10:00 09/17/17 10:00 09/17/17 10:00 Oxygen Flow Rate (L/min) 2 Oxygen Delivery Method Nasal Cannula Weight: 71.2 kg Body Mass Index (BMI) 29.9 Intake and Output for Last 24 Hours 09/15/17 09/16/17 09/17/17 23:59 23:59 23:59 Intake Total 402 / 402 180 / 180 Output Total 3050 / 3050 200 / 200 Balance -2648 / -2648 -20 / -20 General: Alert, Cooperative, No apparent distress HEENT: Atraumatic, Normocephalic Neck: No Nodes, Thyroid Normal Size and Texture Lungs: Diminished, - - Bibasilar crackles Cardiovascular: Regular rate, Regular Rhythm, Normal S1, Normal S2, No murmurs Abdomen: Bowel Sounds Present, Soft, Non Tender, Non-Distended, No Hepato-splenomegaly Extremities: No edema, No Calf Tenderness Skin: No rashes, No breakdown Psych/Mental Status: Normal Affect, Appropriate Laboratory Results 09/16/17 10:54: Activated Clotting Time 230 H 09/16/17 11:44: Specimen Type ART, Sample Site L Radial, pH 7.37, Bicarbonate Actual 19.5 L, POC Total CO2 20, Base Excess -6 L, O2 Saturation 84 L, O2 % 100, ABG pCO2 33.4 L, ABG pO2 49 L, Respiration Rate 12, O2 Delivery Device Bi / C PAP, EPAP 14, IPAP 20, Blood Gas Notified Whom ICU , Blood Gas Notified Time 1143 09/16/17 11:55: Troponin I 5.36 H* 09/16/17 11:55: Total Creatine Kinase 183 05/05/18 11:55: WBC 12.6 H, RBC 4.25, Hgb 11.2 L, Hct 35.6 L, MCV 83.8, MCH 26.4 L, MCHC 31.5 L, RDW 14.8 H, RDW Differential 45.2 H, Plt Count 218, MPV 10.8, Immature Gran % (Auto) 0.100, Neut % (Auto) 90.1 H, Lymph % (Auto) 5.3 L, [place] % (Auto) 4.3, Eos % (Auto) 0.1, Baso % (Auto) 0.1, Absolute Neuts (auto) 11.4 H, Absolute Lymphs (auto) 0.67 L, Total Counted Not Reportable 09/16/17 11:55: Sodium 141, Potassium 3.5, Chloride 108 H, Carbon Dioxide 23.0, Anion Gap 10, BUN 19 H, Creatinine 1.26 H, Estim Creat Clear Calc 30.04, Est GFR (MDRD) Af Amer 53 L, Est GFR (MDRD) Non-Af 44 L, BUN/Creatinine Ratio 15.1, Glucose 228 H, Calcium 8.3 L, Phosphorus 4.2, Magnesium 1.8 09/16/17 11:55: Lactic Acid 4.5 H* 09/16/17 11:55: Phosphorus Cancelled, Magnesium Cancelled 09/16/17 19:40: Total Creatine Kinase 256 H 09/16/17 23:10: Total Creatine Kinase 252 H 09/17/17 05:15: WBC 10.6, RBC 4.03 L, Hgb 10.7 L, Hct 33.5 L, MCV 83.1, MCH 26.6 L, MCHC 31.9 L, RDW 14.9 H, RDW Differential 45.5 H, Plt Count 197, MPV 11.1, Immature Gran % (Auto) 0.100, Neut % (Auto) 81.8 H, Lymph % (Auto) 10.0 L, [place] % (Auto) 7.9, Eos % (Auto) 0.1, Baso % (Auto) 0.1, Absolute Neuts (auto) 8.6 H, Absolute Lymphs (auto) 1.06, Total Counted Not Reportable 09/17/17 05:15: Sodium 146 H, Potassium 3.7, Chloride 109 H, Carbon Dioxide 28.0, Anion Gap 9, BUN 25 H, Creatinine 1.09 H, Estim Creat Clear Calc 34.73, Est GFR (MDRD) Af Amer 63, Est GFR (MDRD) Non-Af 52 L, BUN/Creatinine Ratio 22.9 H, Glucose 110 H, Calcium 8.6 Current Medications Acetaminophen (Tylenol) 650 mg PO Q6H PRN PRN PRN Reason: Headache, fever, pain [facility] Admin: 09/17/17 10:13 Dose: 81 mg Atorvastatin Calcium (Lipitor) 40 mg PO QHS [facility] Last Admin: 09/16/17 20:13 Dose: 40 mg Atropine Sulfate () 0.5 mg IV UD PRN PRN Reason: HR <50 bpm Carvedilol (Coreg) 6.25 mg PO BID [facility] Chlorhexidine Gluconate () 1 each TOPICAL DAILY [facility] Last Admin: 09/17/17 05:29 Dose: 1 each Clopidogrel Bisulfate (Plavix) 75 mg PO DAILY [facility] Last Admin: 09/17/17 10:19 Dose: 75 mg Enoxaparin Sodium (Lovenox) 40 mg SC DAILY [facility] Last Admin: 09/17/17 10:15 Dose: 40 mg Furosemide (Lasix) 40 mg PO BID@1000,1800 [facility] Levothyroxine Sodium (Synthroid) 25 mcg PO DAILY@0600 [facility] Last Admin: 09/17/17 05:10 Dose: 25 mcg Lisinopril (Zestril) 20 mg PO DAILY [facility] Last Admin: 09/17/17 10:16 Dose: 20 mg Magnesium Hydroxide (Milk Of Magnesia) 30 ml PO DAILY PRN PRN Reason: Constipation Ondansetron HCl (Zofran) 4 mg IV Q6H PRN PRN PRN Reason: NAUSEA/VOMITING Sodium Chloride () 5 - 30 ml IV UD PRN PRN Reason: SALINE FLUSH Last Admin: 09/17/17 10:14 Dose: 10 ml Medical Necessity - Tobacco Use Smoking Status: Never smoker Assessment/Plan Active and Suspected Problems (Last Reviewed 09/11/17 @ 15:48 by Lolita Woodson) BRENT (acute kidney injury) (Acute) Cardiopulmonary arrest (Acute) NSTEMI (non-ST elevated myocardial infarction) (Acute) Acute respiratory failure with hypoxia (Acute) Acute systolic (congestive) heart failure (Suspected) EF 20% 1. Non-ST elevation myocardial infarction No intervention managed by cardiology. Aspirin, Plavix, carvedilol, high intensity statin. Further management per cardiology as IVUS determined lesion was not significant. 2. Cardiopulmonary arrest Unclear of the circumstances of that and if that was related with the air embolization from the cardiac catheterization or some other process. Patient is on the monitor at this time No further events 3. Acute heart failure with reduced ejection fraction Appears to be related with Takotsubo cardiomyopathy ejection fraction is 20% with mild pulmonary hypertension Continue with Lasix, carvedilol and lisinopril Does appear to be significantly reduced from 2016 where her left heart catheterization showed her ejection fraction was 70%. Further management per cardiology. Lasix transition over to oral today. 4. Acute hypoxic respiratory failure Secondary to heart failure in good pulmonary arrest Improving with diuresis and BiPAP Is an tolerating being off of the BiPAP. 5. Acute kidney injury Creatinine has jumped from 0.96-1.26. Now down to 1.09. Avoid IV fluids as patient is clinically volume overloaded at this time Monitor closely in regards to the patient actually receiving Lasix. 6. DVT prophylaxis with Lovenox 7. Disposition: Patient still actually being treated. Would anticipate discharge in the next 24-48 hours. Patient will be the escalated to the progressive care unit today. Code Visit Inpatient E&M: [address] [facility] Hosp L2
--- NOTE | 2017-09-17 11:12 | PN_ITS ---
Patient Problems: Active and Suspected Problems (Last Reviewed 09/11/17 @ 15:48 by Lolita Woodson) BRENT (acute kidney injury) (Acute) Cardiopulmonary arrest (Acute) NSTEMI (non-ST elevated myocardial infarction) (Acute) Acute respiratory failure with hypoxia (Acute) Acute systolic (congestive) heart failure (Suspected) EF 20% Subjective: Breathing better. No further chest pain. As tolerated staying off of the BiPAP. Vitals/I&O's: Vital Signs Temp Pulse Resp BP Pulse Ox 37.5 C H 78 18 123/69 H 98 09/17/17 10:00 09/17/17 10:00 09/17/17 10:00 09/17/17 10:00 09/17/17 10:00 Oxygen Flow Rate (L/min) 2 Oxygen Delivery Method Nasal Cannula Weight: 71.2 kg Body Mass Index (BMI) 29.9 Intake and Output for Last 24 Hours 09/15/17 09/16/17 09/17/17 23:59 23:59 23:59 Intake Total 402 / 402 180 / 180 Output Total 3050 / 3050 200 / 200 Balance -2648 / -2648 -20 / -20 General: Alert, Cooperative, No apparent distress HEENT: Atraumatic, Normocephalic Neck: No Nodes, Thyroid Normal Size and Texture Lungs: Diminished, - - Bibasilar crackles Cardiovascular: Regular rate, Regular Rhythm, Normal S1, Normal S2, No murmurs Abdomen: Bowel Sounds Present, Soft, Non Tender, Non-Distended, No Hepato- splenomegaly Extremities: No edema, No Calf Tenderness Skin: No rashes, No breakdown Psych/Mental Status: Normal Affect, Appropriate Laboratory Results 09/16/17 10:54: Activated Clotting Time 230 H 09/16/17 11:44: Specimen Type ART, Sample Site L Radial, pH 7.37, Bicarbonate Actual 19.5 L, POC Total CO2 20, Base Excess -6 L, O2 Saturation 84 L, O2 % 100 , ABG pCO2 33.4 L, ABG pO2 49 L, Respiration Rate 12, O2 Delivery Device Bi / C PAP, EPAP 14, IPAP 20, Blood Gas Notified Whom ICU , Blood Gas Notified Time 1143 09/16/17 11:55: Troponin I 5.36 H* 09/16/17 11:55: Total Creatine Kinase 183 05/05/18 11:55: WBC 12.6 H, RBC 4.25, Hgb 11.2 L, Hct 35.6 L, MCV 83.8, MCH 26.4 L, MCHC 31.5 L, RDW 14.8 H, RDW Differential 45.2 H, Plt Count 218, MPV 10.8, Immature Gran % (Auto) 0.100, Neut % (Auto) 90.1 H, Lymph % (Auto) 5.3 L, [place] % (Auto) 4.3, Eos % (Auto) 0.1, Baso % (Auto) 0.1, Absolute Neuts (auto) 11.4 H, Absolute Lymphs (auto) 0.67 L, Total Counted Not Reportable 09/16/17 11:55: Sodium 141, Potassium 3.5, Chloride 108 H, Carbon Dioxide 23.0, Anion Gap 10, BUN 19 H, Creatinine 1.26 H, Estim Creat Clear Calc 30.04, Est GFR (MDRD) Af Amer 53 L, Est GFR (MDRD) Non-Af 44 L, BUN/Creatinine Ratio 15.1, Glucose 228 H, Calcium 8.3 L, Phosphorus 4.2, Magnesium 1.8 09/16/17 11:55: Lactic Acid 4.5 H* 09/16/17 11:55: Phosphorus Cancelled, Magnesium Cancelled 09/16/17 19:40: Total Creatine Kinase 256 H 09/16/17 23:10: Total Creatine Kinase 252 H 09/17/17 05:15: WBC 10.6, RBC 4.03 L, Hgb 10.7 L, Hct 33.5 L, MCV 83.1, MCH 26.6 L, MCHC 31.9 L, RDW 14.9 H, RDW Differential 45.5 H, Plt Count 197, MPV 11.1, Immature Gran % (Auto) 0.100, Neut % (Auto) 81.8 H, Lymph % (Auto) 10.0 L , [place] % (Auto) 7.9, Eos % (Auto) 0.1, Baso % (Auto) 0.1, Absolute Neuts (auto) 8.6 H, Absolute Lymphs (auto) 1.06, Total Counted Not Reportable 09/17/17 05:15: Sodium 146 H, Potassium 3.7, Chloride 109 H, Carbon Dioxide 28.0 , Anion Gap 9, BUN 25 H, Creatinine 1.09 H, Estim Creat Clear Calc 34.73, Est GFR (MDRD) Af Amer 63, Est GFR (MDRD) Non-Af 52 L, BUN/Creatinine Ratio 22.9 H, Glucose 110 H, Calcium 8.6 Current Medications Acetaminophen (Tylenol) 650 mg PO Q6H PRN PRN PRN Reason: Headache, fever, pain [facility] Last Admin: 09/17/17 10:13 Dose: 81 mg Atorvastatin Calcium (Lipitor) 40 mg PO QHS [facility] Last Admin: 09/16/17 20:13 Dose: 40 mg Atropine Sulfate () 0.5 mg IV UD PRN PRN Reason: HR <50 bpm Carvedilol (Coreg) 6.25 mg PO BID [facility] Chlorhexidine Gluconate () 1 each TOPICAL DAILY [facility] Last Admin: 09/17/17 05:29 Dose: 1 each Clopidogrel Bisulfate (Plavix) 75 mg PO DAILY [facility] Last Admin: 09/17/17 10:19 Dose: 75 mg Enoxaparin Sodium (Lovenox) 40 mg SC DAILY [facility] Last Admin: 09/17/17 10:15 Dose: 40 mg Furosemide (Lasix) 40 mg PO BID@1000,1800 [facility] Levothyroxine Sodium (Synthroid) 25 mcg PO DAILY@0600 [facility] Last Admin: 09/17/17 05:10 Dose: 25 mcg Lisinopril (Zestril) 20 mg PO DAILY [facility] Last Admin: 09/17/17 10:16 Dose: 20 mg Magnesium Hydroxide (Milk Of Magnesia) 30 ml PO DAILY PRN PRN Reason: Constipation Ondansetron HCl (Zofran) 4 mg IV Q6H PRN PRN PRN Reason: NAUSEA/VOMITING Sodium Chloride () 5 - 30 ml IV UD PRN PRN Reason: SALINE FLUSH Last Admin: 09/17/17 10:14 Dose: 10 ml Medical Necessity - Tobacco Use Smoking Status: Never smoker Assessment/Plan Active and Suspected Problems (Last Reviewed 09/11/17 @ 15:48 by Lolita Woodson) BRENT (acute kidney injury) (Acute) Cardiopulmonary arrest (Acute) NSTEMI (non-ST elevated myocardial infarction) (Acute) Acute respiratory failure with hypoxia (Acute) Acute systolic (congestive) heart failure (Suspected) EF 20% 1. Non-ST elevation myocardial infarction * No intervention managed by cardiology. * Aspirin, Plavix, carvedilol, high intensity statin. * Further management per cardiology as IVUS determined lesion was not significant. 2. Cardiopulmonary arrest * Unclear of the circumstances of that and if that was related with the air embolization from the cardiac catheterization or some other process. * Patient is on the monitor at this time * No further events 3. Acute heart failure with reduced ejection fraction * Appears to be related with Takotsubo cardiomyopathy * ejection fraction is 20% with mild pulmonary hypertension * Continue with Lasix, carvedilol and lisinopril * Does appear to be significantly reduced from 2016 where her left heart catheterization showed her ejection fraction was 70%. * Further management per cardiology. * Lasix transition over to oral today. 4. Acute hypoxic respiratory failure * Secondary to heart failure in good pulmonary arrest * Improving with diuresis and BiPAP * Is an tolerating being off of the BiPAP. 5. Acute kidney injury * Creatinine has jumped from 0.96-1.26. Now down to 1.09. * Avoid IV fluids as patient is clinically volume overloaded at this time * Monitor closely in regards to the patient actually receiving Lasix. 6. DVT prophylaxis with Lovenox 7. Disposition: Patient still actually being treated. Would anticipate discharge in the next 24-48 hours. Patient will be the escalated to the progressive care unit today. Code Visit Inpatient E&M: 72311 [facility]s Hosp L2
--- NOTE | 2017-09-17 13:39 | NURSING ---
report called to [facility] for transfer to room 122, transferred per chair queenie sanchezs
[2017-09-17] MEDS: Acetaminophen 325 MG Tablet 650 MG PO ×2 (14:52→22:01)
[2017-09-17] MEDS: Furosemide 40 MG Tablet PO (18:06)
[2017-09-18] VITALS (16 sets, daily range): BP systolic 85–98; BP diastolic 42–58; PULSE 60–88; RESP 12–16; TEMP 36.3–37.1; O2SAT 95–100
[2017-09-18] MEDS: Levothyroxine 25 MCG TABLET PO (05:18)
--- NOTE | 2017-09-18 05:55 | EKG12_ITS ---
Test Reason : MORNING EKG Blood Pressure : / mmHG Vent. Rate : 061 BPM Atrial Rate : 061 BPM P-R Int : 144 ms QRS Dur : 086 ms QT Int : 480 ms P-R-T Axes : 060 031 205 degrees QTc Int : 483 ms Normal sinus rhythm ST & T wave abnormality, consider inferior ischemia ST & T wave abnormality, consider anterior ischemia Abnormal ECG Confirmed by ISAEL RAMSAY, ZANE ([id number]), editorial clerk WENDY WILLOUGHBY ([id number]) on 09/20/2017 2:26:40 PM Referred By: GUNNER Confirmed By:ZANE KIRKLAND MD
[2017-09-18 06:03] LABS: Absolute Lymphocyte Count 1.75 X10^3/ul (0.83-4.51); Absolute Neutrophil Count 6.3 X10^3/uL (2.0-7.7); Basophil# 0.02 X10^3/uL; Basophil% 0.2 % (0-1); Eosinophil# 0.08 X10^3/uL; Eosinophils% 0.9 % (0-5); Hematocrit 31.3 % (37-47); Hemoglobin 10.1 g/dl (12.0-15.0); Lymphocyte # 1.75 X10^3/ul (4.0); Lymphocyte % 19.9 % (19-41); Mean Corp Hgb Conc 32.3 g/gl (32-36); Mean Corpuscular Hgb 26.9 pg (27.0-32.0); Mean Corpuscular Volume 83.2 fL (81-99); Mean Platelet Vol. 11.2 fl (6.2-12.0); Monocyte# 0.61 X10^3/uL; Monocyte% 6.9 % (0-10); Neutrophil # 6.31 X10^3/uL (2.7-7.7); Platelet Count 175 K/mm3 (150-450); RBC Distribution Width CV 14.5 % (11.6-14.6); Red Blood Count 3.76 M/mm3 (4.2-5.4); White Blood Count 8.8 K/mm3 (4.4-11.0)
[2017-09-18 06:10] LABS: POSITIVE COUNT NO; POSITIVE DIFFERENTIAL NO; POSITIVE MORPHOLOGY NO
[2017-09-18 06:21] LABS: Anion Gap 6 (5-15); BUN 31 mg/dL (7-18); BUN/Creat Ratio 27.2 RATIO (10-20); Calcium,Total 8.3 mg/dL (8.5-10.1); Chloride 104 mmol/L (98-107); Creatinine, Serum 1.14 mg/dL (0.55-1.02); EST Glomerular Filtration Rate 49 mL/min (>60); Est Glom Filt Rate - Afr Amer 60 mL/min (>60); Glucose 93 mg/dL (74-106); Potassium 3.5 mmol/L (3.5-5.1); Sodium Level 141 mmol/L (136-145)
--- NOTE | 2017-09-18 07:36 | PCM.PN.CARD ---
Subjectve: Patient seen and evaluated. He appears to be doing well with no complaints. She is however little fatigued Objective: Vital Signs Temp Pulse Resp BP Pulse Ox 98.3 F 66 16 98/58 L 97 09/18/17 05:12 09/18/17 07:00 09/18/17 05:12 09/18/17 05:12 09/18/17 05:12 Oxygen Flow Rate (L/min) 2 Oxygen Delivery Method Nasal Cannula Weight: 159 lb 13.362 oz Body Mass Index (BMI) 29.9 Intake and Output for Last 24 Hours 09/16/17 09/17/17 09/18/17 23:59 23:59 23:59 Intake Total 402 / 402 1180 / 1180 200 / 200 Output Total 3050 / 3050 1200 / 1200 Balance -2648 / -2648 -20 / -20 200 / 200 General: Awake, Alert, Oriented x 3 HEENT: PERRL, EOMI, Sclera Non Icteric Neck: Supple, Good ROM, No Lymph Node Enlargement Lungs: Clear to auscultation Cardiovascular: Regular Rhythm, Normal S1, Normal S2, No Murmurs, No Rubs, No Gallops Vascular: No Carotid Bruits, Normal Femoral Pulses, Normal Radial Pulses, Normal Dorsalis Pedal Pulse, Normal Posterior Tibial Pulses Abdomen: Bowel Sounds Present, Soft, Non Tender, No HSM, No Organomegaly Extremities: No Cyanosis, No Clubbing, No edema Neurological: No Focal Motor or Sensory Deficit 09/18/17 05:40: WBC 8.8, RBC 3.76 L, Hgb 10.1 L, Hct 31.3 L, MCV 83.2, MCH 26.9 L, MCHC 32.3, RDW 14.5, RDW Differential 43.0, Plt Count 175, MPV 11.2, Immature Gran % (Auto) 0.100, Neut % (Auto) 72.0 H, Lymph % (Auto) 19.9, [place] % (Auto) 6.9, Eos % (Auto) 0.9, Baso % (Auto) 0.2, Absolute Neuts (auto) 6.3, Total Counted Not Reportable 09/18/17 05:40: Sodium 141, Potassium 3.5, Chloride 104, Carbon Dioxide 31.0, Anion Gap 6, BUN 31 H, Creatinine 1.14 H, Est GFR (MDRD) Af Amer 60, Est GFR (MDRD) Non-Af 49 L, BUN/Creatinine Ratio 27.2 H, Glucose 93, Calcium 8.3 L Rhythm: EKG: ECHO: Stress Test: Cardiac Cath: PCI: CT Surgery: Holter monitor: EPS: PPM: CXR: Chest CT Scan: Medical Necessity - Tobacco Use Smoking Status: Never smoker Assessment/Plan 1. Non-ST elevation myocardial infarction She has atypical presentation but currently has non-ST elevation myocardial infarction and had continued chest pain. 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 She underwent an IVUS procedure which determined that the lesion was not significant. She did transient ST elevation and hypotension likely from an air embolism. Recovered well from the above Will be to continue beta-anastacio statin and Plavix 2.Takutsobu cardiac myopathy Patient appears to have the above with severe hypokinesis to akinesis of the entire anterior wall apex as well as inferior apical wall the estimated ejection fraction is approximately 20%. We will plan on aggressively treating with beta-anastacio with carvedilol 6.25 mg twice a day, continue lisinopril 20 mg a day and will recommend re-evaluate echocardiographic evaluation in 3 months. At that time a stress test may also be performed to relook at the left anterior descending artery lesion. 3. Hypertension Blood pressure under good control on the current medical management. We will continue to treat. We will reduce the dose of the lisinopril to 10 mg a day due to hypotension 4. Risk factor modification We will continue with risk factor modification with high intensity statin. 5. Congestive heart failure-systolic acute The above was likely secondary to the transient hypotension, CPR increased IV fluids and epinephrine which was administered. Patient also had an elevated left ventricular end-diastolic pressure. Was treated with BiPAP as well as intravenous Lasix has diuresed appropriately and at this time appears to be doing well., JANES inhibitor his beta blockers and diuretics will be continued. Thank you for allowing me to participate in the care of your patient. Please don't hesitate to call if any issues arise
--- NOTE | 2017-09-18 09:25 | PCM.PN.HOSP ---
Patient Problems: Active and Suspected Problems (Last Reviewed 09/11/17 @ 15:48 by Lolita Woodson) BRENT (acute kidney injury) (Acute) Cardiopulmonary arrest (Acute) NSTEMI (non-ST elevated myocardial infarction) (Acute) Acute respiratory failure with hypoxia (Acute) Acute systolic (congestive) heart failure (Suspected) EF 20% Subjective: Patient is a 77-year-old lady admitted with atypical chest pain had elevated cardiac enzymes consistent with acute non-ST SD patient underwent left heart catheterization on 09/16/2017 which demonstrated moderate ostial left anterior descending artery lesion as well as normal circumflex artery and right coronary artery which was normal. She underwent an IVUS procedure which determined that the lesion was not significant. Patient apparently did develop hypotension following the procedure CODE BLUE was called successfully resuscitated with CPR and epinephrine. Subsequently transferred to the intensive care unit 08/19/2017; Patient seen complains of chest discomfort probably muscle pain from his CPR. Blood pressure relatively low this a.m. Lasix and her antihypertensive regimen adjusted Objective: GENERAL: cooperative HEENT: Clear conjunctiva, NECK; supple, normal thyroid, CHEST: Diminished to auscultation bilaterally, . HEART: Regular S1 S2, no audible murmurs ABDOMEN: soft, non-tender, normoactive bowel sounds, RECTAL: deferred EXTREMITIES: No edema, no clubbing, no cyanosis. 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 SKIN: No rash Vitals/I&O's: Vital Signs Temp Pulse Resp BP Pulse Ox 98.2 F 65 14 89/50 L 95 09/18/17 09:14 09/18/17 09:14 09/18/17 09:14 09/18/17 09:14 09/18/17 09:14 Oxygen Flow Rate (L/min) 2 Oxygen Delivery Method Room Air Weight: 72.5 kg Body Mass Index (BMI) 29.9 Intake and Output for Last 24 Hours 09/16/17 09/17/17 09/18/17 23:59 23:59 23:59 Intake Total 402 / 402 1180 / 1180 200 / 200 Output Total 3050 / 3050 1200 / 1200 Balance -2648 / -2648 -20 / -20 200 / 200 Laboratory Results 09/18/17 05:40: WBC 8.8, RBC 3.76 L, Hgb 10.1 L, Hct 31.3 L, MCV 83.2, MCH 26.9 L, MCHC 32.3, RDW 14.5, RDW Differential 43.0, Plt Count 175, MPV 11.2, Immature Gran % (Auto) 0.100, Neut % (Auto) 72.0 H, Lymph % (Auto) 19.9, [place] % (Auto) 6.9, Eos % (Auto) 0.9, Baso % (Auto) 0.2, Absolute Neuts (auto) 6.3, Absolute Lymphs (auto) 1.75, Total Counted Not Reportable 09/18/17 05:40: Sodium 141, Potassium 3.5, Chloride 104, Carbon Dioxide 31.0, Anion Gap 6, BUN 31 H, Creatinine 1.14 H, Estim Creat Clear Calc 33.20, Est GFR (MDRD) Af Amer 60, Est GFR (MDRD) Non-Af 49 L, BUN/Creatinine Ratio 27.2 H, Glucose 93, Calcium 8.3 L Current Medications Acetaminophen (Tylenol) 650 mg PO Q6H PRN PRN PRN Reason: Headache, fever, pain Last Admin: 09/17/17 22:01 Dose: 650 mg [facility]ir[facility] ([facility]) [facility] Last Admin: 09/17/17 10:13 Dose: 81 mg Atorvastatin Calcium (Lipitor) 40 mg PO QHS [facility] Last Admin: 09/17/17 22:03 Dose: Not Given Atropine Sulfate () 0.5 mg IV UD PRN PRN Reason: HR <50 bpm Carvedilol (Coreg) 3.125 mg PO BID [facility] Clopidogrel Bisulfate (Plavix) 75 mg PO DAILY [facility] Last Admin: 09/17/17 10:19 Dose: 75 mg Enoxaparin Sodium (Lovenox) 40 mg SC DAILY [facility] Last Admin: 09/17/17 10:15 Dose: 40 mg Furosemide (Lasix) 40 mg PO DAILY [facility] Levothyroxine Sodium (Synthroid) 25 mcg PO DAILY@0600 [facility] Last Admin: 09/18/17 05:18 Dose: 25 mcg Lisinopril (Zestril) 10 mg PO DAILY [facility] Magnesium Hydroxide (Milk Of Magnesia) 30 ml PO DAILY PRN PRN Reason: Constipation Ondansetron HCl (Zofran) 4 mg IV Q6H PRN PRN PRN Reason: NAUSEA/VOMITING Sodium Chloride () 5 - 30 ml IV UD PRN PRN Reason: SALINE FLUSH Last Admin: 09/17/17 10:14 Dose: 10 ml Medical Necessity - Tobacco Use Smoking Status: Never smoker Assessment/Plan Active and Suspected Problems (Last Reviewed 09/11/17 @ 15:48 by Lolita Woodson) BRENT (acute kidney injury) (Acute) Cardiopulmonary arrest (Acute) NSTEMI (non-ST elevated myocardial infarction) (Acute) Acute respiratory failure with hypoxia (Acute) Acute systolic (congestive) heart failure (Suspected) EF 20% Patient is a 77-year-old lady admitted with atypical chest pain had elevated cardiac enzymes consistent with acute non-ST SD patient underwent left heart catheterization on 09/16/2017 which demonstrated moderate ostial left anterior descending artery lesion as well as normal circumflex artery and right coronary artery which was normal. She underwent an IVUS procedure which determined that the lesion was not significant. Patient apparently did develop hypotension following the procedure CODE BLUE was called successfully resuscitated with CPR and epinephrine. Subsequently transferred to the intensive care unit 1. Acute non-ST SD; patient underwent left heart catheterization on 09/16/2017 which demonstrated moderate ostial left anterior descending artery lesion as well as normal circumflex artery and right coronary artery which was normal. She underwent an IVUS procedure which determined that the lesion was not significant. 2. Cardiopulmonary arrest thought to be secondary to embolism following patient cardiac catheterization; successfully resuscitated with CPR and epinephrine. Subsequently transferred to the intensive care unit 3. Acute systolic congestive heart failure attributed toTakotsubo cardiomyopathy echo demonstrated EF of 20% managed with Lasix held on the morning of 08/19/2017 in view of patient being relatively hypotensive 4. Hypertension patient antihypertensive medications adjusted with decrease in the dose of lisinopril from 10 to 2.5 did continue with patient's Coreg 5. Acute kidney injury attributed to Lasix dose adjusted 6. Hypothyroidism-patient is on levothyroxine home dose continued 7. Dyslipidemia-patient is on statin therapy, continued at home dose 8. Physical deconditioning requested for PT OT eval 9. DVT prophylaxis with Lovenox Clinical Impression(s) from Imaging Studies Chest X-Ray 09/15/17 21:47 IMPRESSION: There is mild enlargement of the cardiac silhouette with mild edema. There is no obvious effusion. There is minimal bibasilar atelectasis. Electronically Signed: Keri Freire MD at 22:16 EDT Tel Direct: [phone], Service support , Chest X-Ray 09/16/17 11:24 IMPRESSION: 1. Worsening bilateral pulmonary edema versus inflammatory/infectious infiltrates. 2. Borderline to mild cardiac enlargement. Electronically Signed: Dakota Plummer MD at 14:49 EDT , Service support , Active Medications Acetaminophen (Tylenol) 650 mg PO Q6H PRN PRN PRN Reason: Headache, fever, pain Last Admin: 09/17/17 22:01 Dose: 650 mg [facility]irin ([facility]cotrin) [facility] Last Admin: 09/17/17 10:13 Dose: 81 mg Atorvastatin Calcium (Lipitor) 40 mg PO QHS [facility] Last Admin: 09/17/17 22:03 Dose: Not Given Atropine Sulfate () 0.5 mg IV UD PRN PRN Reason: HR <50 bpm Carvedilol (Coreg) 3.125 mg PO BID [facility] Clopidogrel Bisulfate (Plavix) 75 mg PO DAILY [facility] Last Admin: 09/17/17 10:19 Dose: 75 mg Enoxaparin Sodium (Lovenox) 40 mg SC DAILY [facility] Last Admin: 09/17/17 10:15 Dose: 40 mg Furosemide (Lasix) 40 mg PO DAILY [facility] Last Admin: 09/18/17 09:27 Dose: Not Given Levothyroxine Sodium (Synthroid) 25 mcg PO DAILY@0600 [facility] Last Admin: 09/18/17 05:18 Dose: 25 mcg Lisinopril (Zestril) 2.5 mg PO DAILY [facility] Magnesium Hydroxide (Milk Of Magnesia) 30 ml PO DAILY PRN PRN Reason: Constipation Ondansetron HCl (Zofran) 4 mg IV Q6H PRN PRN PRN Reason: NAUSEA/VOMITING Sodium Chloride () 5 - 30 ml IV UD PRN PRN Reason: SALINE FLUSH Last Admin: 09/17/17 10:14 Dose: 10 ml Code Visit Inpatient E&M: [id number] [facility] Hosp
--- NOTE | 2017-09-18 09:33 | PN_ITS ---
Patient Problems: Active and Suspected Problems (Last Reviewed 09/11/17 @ 15:48 by Lolita Woodson) BRENT (acute kidney injury) (Acute) Cardiopulmonary arrest (Acute) NSTEMI (non-ST elevated myocardial infarction) (Acute) Acute respiratory failure with hypoxia (Acute) Acute systolic (congestive) heart failure (Suspected) EF 20% Subjective: Patient is a 77-year-old lady admitted with atypical chest pain had elevated cardiac enzymes consistent with acute non-ST DE patient underwent left heart catheterization on 09/16/2017 which demonstrated moderate ostial left anterior descending artery lesion as well as normal circumflex artery and right coronary artery which was normal. She underwent an IVUS procedure which determined that the lesion was not significant. Patient apparently did develop hypotension following the procedure CODE BLUE was called successfully resuscitated with CPR and epinephrine. Subsequently transferred to the intensive care unit 08/19/2017; Patient seen complains of chest discomfort probably muscle pain from his CPR. Blood pressure relatively low this a.m. Lasix and her antihypertensive regimen adjusted Objective: GENERAL: cooperative HEENT: Clear conjunctiva, NECK; supple, normal thyroid, CHEST: Diminished to auscultation bilaterally, . HEART: Regular S1 S2, no audible murmurs ABDOMEN: soft, non-tender, normoactive bowel sounds, RECTAL: deferred EXTREMITIES: No edema, no clubbing, no cyanosis. 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 SKIN: No rash Vitals/I&O's: Vital Signs Temp Pulse Resp BP Pulse Ox 98.2 F 65 14 89/50 L 95 09/18/17 09:14 09/18/17 09:14 09/18/17 09:14 09/18/17 09:14 09/18/17 09:14 Oxygen Flow Rate (L/min) 2 Oxygen Delivery Method Room Air Weight: 72.5 kg Body Mass Index (BMI) 29.9 Intake and Output for Last 24 Hours 09/16/17 09/17/17 09/18/17 23:59 23:59 23:59 Intake Total 402 / 402 1180 / 1180 200 / 200 Output Total 3050 / 3050 1200 / 1200 Balance -2648 / -2648 -20 / -20 200 / 200 Laboratory Results 09/18/17 05:40: WBC 8.8, RBC 3.76 L, Hgb 10.1 L, Hct 31.3 L, MCV 83.2, MCH 26.9 L, MCHC 32.3, RDW 14.5, RDW Differential 43.0, Plt Count 175, MPV 11.2, Immature Gran % (Auto) 0.100, Neut % (Auto) 72.0 H, Lymph % (Auto) 19.9, [place] % (Auto) 6.9, Eos % (Auto) 0.9, Baso % (Auto) 0.2, Absolute Neuts (auto) 6.3, Absolute Lymphs (auto) 1.75, Total Counted Not Reportable 09/18/17 05:40: Sodium 141, Potassium 3.5, Chloride 104, Carbon Dioxide 31.0, Anion Gap 6, BUN 31 H, Creatinine 1.14 H, Estim Creat Clear Calc 33.20, Est GFR (MDRD) Af Amer 60, Est GFR (MDRD) Non-Af 49 L, BUN/Creatinine Ratio 27.2 H, Glucose 93, Calcium 8.3 L Current Medications Acetaminophen (Tylenol) 650 mg PO Q6H PRN PRN PRN Reason: Headache, fever, pain Last Admin: 09/17/17 22:01 Dose: 650 mg [facility] Last Admin: 09/17/17 10:13 Dose: 81 mg Atorvastatin Calcium (Lipitor) 40 mg PO QHS [facility] Last Admin: 09/17/17 22:03 Dose: Not Given Atropine Sulfate () 0.5 mg IV UD PRN PRN Reason: HR <50 bpm Carvedilol (Coreg) 3.125 mg PO BID [facility] Clopidogrel Bisulfate (Plavix) 75 mg PO DAILY [facility] Last Admin: 09/17/17 10:19 Dose: 75 mg Enoxaparin Sodium (Lovenox) 40 mg SC DAILY [facility] Last Admin: 09/17/17 10:15 Dose: 40 mg Furosemide (Lasix) 40 mg PO DAILY [facility] Levothyroxine Sodium (Synthroid) 25 mcg PO DAILY@0600 [facility] Last Admin: 09/18/17 05:18 Dose: 25 mcg Lisinopril (Zestril) 10 mg PO DAILY [facility] Magnesium Hydroxide (Milk Of Magnesia) 30 ml PO DAILY PRN PRN Reason: Constipation Ondansetron HCl (Zofran) 4 mg IV Q6H PRN PRN PRN Reason: NAUSEA/VOMITING Sodium Chloride () 5 - 30 ml IV UD PRN PRN Reason: SALINE FLUSH Last Admin: 09/17/17 10:14 Dose: 10 ml Medical Necessity - Tobacco Use Smoking Status: Never smoker Assessment/Plan Active and Suspected Problems (Last Reviewed 09/11/17 @ 15:48 by Lolita Woodson) BRENT (acute kidney injury) (Acute) Cardiopulmonary arrest (Acute) NSTEMI (non-ST elevated myocardial infarction) (Acute) Acute respiratory failure with hypoxia (Acute) Acute systolic (congestive) heart failure (Suspected) EF 20% Patient is a 77-year-old lady admitted with atypical chest pain had elevated cardiac enzymes consistent with acute non-ST DE patient underwent left heart catheterization on 09/16/2017 which demonstrated moderate ostial left anterior descending artery lesion as well as normal circumflex artery and right coronary artery which was normal. She underwent an IVUS procedure which determined that the lesion was not significant. Patient apparently did develop hypotension following the procedure CODE BLUE was called successfully resuscitated with CPR and epinephrine. Subsequently transferred to the intensive care unit 1. Acute non-ST DE; patient underwent left heart catheterization on 09/16/2017 which demonstrated moderate ostial left anterior descending artery lesion as well as normal circumflex artery and right coronary artery which was normal. She underwent an IVUS procedure which determined that the lesion was not significant. 2. Cardiopulmonary arrest thought to be secondary to embolism following patient cardiac catheterization; successfully resuscitated with CPR and epinephrine. Subsequently transferred to the intensive care unit 3. Acute systolic congestive heart failure attributed toTakotsubo cardiomyopathy echo demonstrated EF of 20% managed with Lasix held on the morning of 08/19/2017 in view of patient being relatively hypotensive 4. Hypertension patient antihypertensive medications adjusted with decrease in the dose of lisinopril from 10 to 2.5 did continue with patient's Coreg 5. Acute kidney injury attributed to Lasix dose adjusted 6. Hypothyroidism-patient is on levothyroxine home dose continued 7. Dyslipidemia-patient is on statin therapy, continued at home dose 8. Physical deconditioning requested for PT OT eval 9. DVT prophylaxis with Lovenox Clinical Impression(s) from Imaging Studies Chest X-Ray 09/15/17 21:47 IMPRESSION: There is mild enlargement of the cardiac silhouette with mild edema. There is no obvious effusion. There is minimal bibasilar atelectasis. Electronically Signed: Keri Freire MD at 22:16 EDT Tel Direct: [phone], Service support , Chest X-Ray 09/16/17 11:24 IMPRESSION: 1. Worsening bilateral pulmonary edema versus inflammatory/infectious infiltrates. 2. Borderline to mild cardiac enlargement. Electronically Signed: Dakota Plummer MD at 14:49 EDT , Service support , Active Medications Acetaminophen (Tylenol) 650 mg PO Q6H PRN PRN PRN Reason: Headache, fever, pain Last Admin: 09/17/17 22:01 Dose: 650 mg [facility] Last Admin: 09/17/17 10:13 Dose: 81 mg Atorvastatin Calcium (Lipitor) 40 mg PO QHS [facility] Last Admin: 09/17/17 22:03 Dose: Not Given Atropine Sulfate () 0.5 mg IV UD PRN PRN Reason: HR <50 bpm Carvedilol (Coreg) 3.125 mg PO BID [facility] Clopidogrel Bisulfate (Plavix) 75 mg PO DAILY [facility] Last Admin: 09/17/17 10:19 Dose: 75 mg Enoxaparin Sodium (Lovenox) 40 mg SC DAILY [facility] Last Admin: 09/17/17 10:15 Dose: 40 mg Furosemide (Lasix) 40 mg PO DAILY [facility] Last Admin: 09/18/17 09:27 Dose: Not Given Levothyroxine Sodium (Synthroid) 25 mcg PO DAILY@0600 [facility] Last Admin: 09/18/17 05:18 Dose: 25 mcg Lisinopril (Zestril) 2.5 mg PO DAILY [facility] Magnesium Hydroxide (Milk Of Magnesia) 30 ml PO DAILY PRN PRN Reason: Constipation Ondansetron HCl (Zofran) 4 mg IV Q6H PRN PRN PRN Reason: NAUSEA/VOMITING Sodium Chloride () 5 - 30 ml IV UD PRN PRN Reason: SALINE FLUSH Last Admin: 09/17/17 10:14 Dose: 10 ml Code Visit Inpatient E&M: [id number] [facility] H[facility]
[2017-09-18] MEDS: Clopidogrel Bisulfate 75 MG Tablet PO (09:47)
[2017-09-18] MEDS: Carvedilol 3.125 MG TABLET PO ×2 (09:47→21:17)
[2017-09-18] MEDS: Enoxaparin 40 MG/0.4 ML Syringe SC (09:47)
[2017-09-18] MEDS: Aspirin E.C. 81 MG Tablet PO (09:47)
--- NOTE | 2017-09-18 10:16 | CASEMGMT ---
Face to Face with patient for initial transition planning/care coordination assessment. BARRY ARMAS introduced self and role at [facility], pt voices understanding and consents to assessment at this time. Pt is sitting up in chair in no distress at this time. Pt is A/O x4 at this time and answers all questions appropriately at this time. Care providers, pharmacy, and demographics verified. See attached link. Pt voices no further concerns/needs at this time. Advised pt to ask for CM if any further questions/concerns/needs arise, voices understanding. CM to follow for any further discharge planning/needs. Referral to [facility] for possible bereavement resources/psychosocial, voices understanding. PLAN: [place] BARRY ARMAS
--- NOTE | 2017-09-18 10:53 | PCM.PROGNOTE ---
Patient Problems: Active and Suspected Problems (Last Reviewed 09/11/17 @ 15:48 by Lolita Woodson) BRENT (acute kidney injury) (Acute) Cardiopulmonary arrest (Acute) NSTEMI (non-ST elevated myocardial infarction) (Acute) Acute respiratory failure with hypoxia (Acute) Acute systolic (congestive) heart failure (Suspected) EF 20% Subjective: Patient was seen and examined. She is sitting up in bed in no acute distress, only complaint really is that the left side of her chest is sore from her fall and from CPR. Soreness/pain worse with deep inspiration. She has been weaned to room air. Remains afebrile. Blood pressures have been on the low side and is 89/50 this morning, reports she is asymptomatic. Cardiology was in earlier this morning and is adjusting medications. Objective: Recent lab data reviewed. No culture data to review. Chest x-ray from 09/16 showed worsening bilateral pulmonary edema versus inflammatory/infectious infiltrates. Cardiac catheterization 09/17 demonstrated moderate ostial left anterior descending artery lesion, normal circumflex artery and right coronary artery. Underwent IVUS procedure that determine lesion not significant. There was an air embolism and patient had brief CPR and 1 dose of epinephrine and digoxin. - Physical Exam General: Alert, Oriented x3, Cooperative, No apparent distress, - - no conversational dyspnea HEENT: Atraumatic, Normocephalic Oral: Moist Mucosa Neck: Supple, No Nodes, Trachea Midline Lungs: No rhonchi, No wheeze, No rales, Diminished, - - Symmetric expansion, no dullness to percussion Cardiovascular: Regular rate, Regular Rhythm, Normal S1, Normal S2, No murmurs, No rub noted, No Gallop Abdomen: Bowel Sounds Present, Soft, Non Tender, Non-Distended Extremities: No clubbing, No cyanosis, No edema, Peripheral Pulses Normal Skin: No rashes, No breakdown, - - Large area of ecchymosis to the left breast/chest wall, no hematomas Musculoskeletal: No Tenderness to Palpation of Joints or Extremities Lymphatic: No Cervical, Supraclavicular, or Inguinal Adenopathy Neurological: Cranial nerves II-XII grossly intact, Neuro grossly intact, Motor Exam 5/5 strength throughout Psych/Mental Status: Alert and oriented to time, place, person, mood and affect Vital Signs Temp Pulse Resp BP Pulse Ox 98.2 F 65 14 89/50 L 95 05/07/18 09:14 09/18/17 09:14 09/18/17 09:14 09/18/17 09:14 09/18/17 09:14 Oxygen Flow Rate (L/min) 2 Oxygen Delivery Method Room Air Weight: 159 lb 13.362 oz Body Mass Index (BMI) 29.9 Intake and Output for Last 24 Hours 09/16/17 09/17/17 09/18/17 23:59 23:59 23:59 Intake Total 402 / 402 1180 / 1180 200 / 200 Output Total 3050 / 3050 1200 / 1200 Balance -2648 / -2648 -20 / -20 200 / 200 Laboratory Tests Past 24 Hrs 09/18/17 09/18/17 05:40 05:40 WBC 8.8 RBC 3.76 L Hgb 10.1 L Hct 31.3 L MCV 83.2 MCH 26.9 L MCHC 32.3 RDW 14.5 RDW Differential 43.0 Plt Count 175 MPV 11.2 Immature Gran % (Auto) 0.100 Neut % (Auto) 72.0 H Lymph % (Auto) 19.9 [place] % (Auto) 6.9 Eos % (Auto) 0.9 Baso % (Auto) 0.2 Absolute Neuts (auto) 6.3 Absolute Lymphs (auto) 1.75 Total Counted Not Reportable Sodium 141 Potassium 3.5 Chloride 104 Carbon Dioxide 31.0 Anion Gap 6 BUN 31 H Creatinine 1.14 H Estim Creat Clear Calc 33.20 Est GFR (MDRD) Af Amer 60 Est GFR (MDRD) Non-Af 49 L BUN/Creatinine Ratio 27.2 H Glucose 93 Calcium 8.3 L Medical Necessity - Tobacco Use Smoking Status: Never smoker Assessment/Plan Active and Suspected Problems (Last Reviewed 09/11/17 @ 15:48 by Lolita Woodson) BRNET (acute kidney injury) (Acute) Cardiopulmonary arrest (Acute) NSTEMI (non-ST elevated myocardial infarction) (Acute) Acute respiratory failure with hypoxia (Acute) Acute systolic (congestive) heart failure (Suspected) EF 20% RECOMMENDATIONS: 1. Oxygen supplementation to keep saturations >90% 2. Diuresis, anticoagulation, and BP management per cardiology 3. Initiated incentive spirometer 4. Continue diet as tolerated IMPRESSIONS: 1. Acute hypoxic respiratory failure Patient clinically is acting like the etiology was flash pulmonary edema secondary to acute on chronic systolic congestive heart failure. Patient has responded well to diuretic therapy. Diuretic therapy has been decreased, blood pressures are on the lower side. Coreg was also decreased. BiPAP can be utilized as needed. Wean supplemental oxygen to keep saturations greater than 90%. Continue diet as tolerated. Encourage incentive spirometer, patient is splinting secondary to pain from fall and CPR. 2. Acute on chronic systolic congestive heart failure Patient on aspirin, JANES inhibitor and statin at baseline. She was significantly tachycardic originally on presentation. Cardiology currently following. Patient has received diuretic therapy and seems to have responded well. Continue to monitor blood pressures closely. Patient did receive 1 minute of CPR, 1 dose of epinephrine and digoxin in the Ambulatory Analyst. Patient appears to be neurologically intact at this time. 3. Hypertension/hyperlipidemia/degenerative disc disease/advanced age/recent fall/hypothyroidism Complicates care, management, recovery and prognosis. Patient did have a fall, has ecchymosis to left chest but does not appear to have any other external signs of injury. The patient has not required BiPAP therapy in over 24 hours, she is tolerating room air. This note was generated with [employer] dictation software. It may contain incorrect words, spelling, and punctuation that were not noted in checking the note before signing.
--- NOTE | 2017-09-18 11:04 | PN_ITS ---
Patient Problems: Active and Suspected Problems (Last Reviewed 09/11/17 @ 15:48 by Lolita Woodson) BRENT (acute kidney injury) (Acute) Cardiopulmonary arrest (Acute) NSTEMI (non-ST elevated myocardial infarction) (Acute) Acute respiratory failure with hypoxia (Acute) Acute systolic (congestive) heart failure (Suspected) EF 20% Subjective: Patient was seen and examined. She is sitting up in bed in no acute distress, only complaint really is that the left side of her chest is sore from her fall and from CPR. Soreness/pain worse with deep inspiration. She has been weaned to room air. Remains afebrile. Blood pressures have been on the low side and is 89/50 this morning, reports she is asymptomatic. Cardiology was in earlier this morning and is adjusting medications. Objective: Recent lab data reviewed. No culture data to review. Chest x-ray from 09/16 showed worsening bilateral pulmonary edema versus inflammatory/infectious infiltrates. Cardiac catheterization 09/17 demonstrated moderate ostial left anterior descending artery lesion, normal circumflex artery and right coronary artery. Underwent IVUS procedure that determine lesion not significant. There was an air embolism and patient had brief CPR and 1 dose of epinephrine and digoxin. - Physical Exam General: Alert, Oriented x3, Cooperative, No apparent distress, - - no conversational dyspnea HEENT: Atraumatic, Normocephalic Oral: Moist Mucosa Neck: Supple, No Nodes, Trachea Midline Lungs: No rhonchi, No wheeze, No rales, Diminished, - - Symmetric expansion, no dullness to percussion Cardiovascular: Regular rate, Regular Rhythm, Normal S1, Normal S2, No murmurs, No rub noted, No Gallop Abdomen: Bowel Sounds Present, Soft, Non Tender, Non-Distended Extremities: No clubbing, No cyanosis, No edema, Peripheral Pulses Normal Skin: No rashes, No breakdown, - - Large area of ecchymosis to the left breast/ chest wall, no hematomas Musculoskeletal: No Tenderness to Palpation of Joints or Extremities Lymphatic: No Cervical, Supraclavicular, or Inguinal Adenopathy Neurological: Cranial nerves II-XII grossly intact, Neuro grossly intact, Motor Exam 5/5 strength throughout Psych/Mental Status: Alert and oriented to time, place, person, mood and affect Vital Signs Temp Pulse Resp BP Pulse Ox 98.2 F 65 14 89/50 L 95 05/07/18 09:14 09/18/17 09:14 09/18/17 09:14 09/18/17 09:14 09/18/17 09:14 Oxygen Flow Rate (L/min) 2 Oxygen Delivery Method Room Air Weight: 159 lb 13.362 oz Body Mass Index (BMI) 29.9 Intake and Output for Last 24 Hours 09/16/17 09/17/17 09/18/17 23:59 23:59 23:59 Intake Total 402 / 402 1180 / 1180 200 / 200 Output Total 3050 / 3050 1200 / 1200 Balance -2648 / -2648 -20 / -20 200 / 200 Laboratory Tests Past 24 Hrs 09/18/17 09/18/17 05:40 05:40 WBC 8.8 RBC 3.76 L Hgb 10.1 L Hct 31.3 L MCV 83.2 MCH 26.9 L MCHC 32.3 RDW 14.5 RDW Differential 43.0 Plt Count 175 MPV 11.2 Immature Gran % (Auto) 0.100 Neut % (Auto) 72.0 H Lymph % (Auto) 19.9 [place]on % (Auto) 6.9 Eos % (Auto) 0.9 Baso % (Auto) 0.2 Absolute Neuts (auto) 6.3 Absolute Lymphs (auto) 1.75 Total Counted Not Reportable Sodium 141 Potassium 3.5 Chloride 104 Carbon Dioxide 31.0 Anion Gap 6 BUN 31 H Creatinine 1.14 H Estim Creat Clear Calc 33.20 Est GFR (MDRD) Af Amer 60 Est GFR (MDRD) Non-Af 49 L BUN/Creatinine Ratio 27.2 H Glucose 93 Calcium 8.3 L Medical Necessity - Tobacco Use Smoking Status: Never smoker Assessment/Plan Active and Suspected Problems (Last Reviewed 09/11/17 @ 15:48 by Lolita Woodson) BRENT (acute kidney injury) (Acute) Cardiopulmonary arrest (Acute) NSTEMI (non-ST elevated myocardial infarction) (Acute) Acute respiratory failure with hypoxia (Acute) Acute systolic (congestive) heart failure (Suspected) EF 20% RECOMMENDATIONS: 1. Oxygen supplementation to keep saturations >90% 2. Diuresis, anticoagulation, and BP management per cardiology 3. Initiated incentive spirometer 4. Continue diet as tolerated IMPRESSIONS: 1. Acute hypoxic respiratory failure Patient clinically is acting like the etiology was flash pulmonary edema secondary to acute on chronic systolic congestive heart failure. Patient has responded well to diuretic therapy. Diuretic therapy has been decreased, blood pressures are on the lower side. Coreg was also decreased. BiPAP can be utilized as needed. Wean supplemental oxygen to keep saturations greater than 90%. Continue diet as tolerated. Encourage incentive spirometer, patient is splinting secondary to pain from fall and CPR. 2. Acute on chronic systolic congestive heart failure Patient on aspirin, JANES inhibitor and statin at baseline. She was significantly tachycardic originally on presentation. Cardiology currently following. Patient has received diuretic therapy and seems to have responded well. Continue to monitor blood pressures closely. Patient did receive 1 minute of CPR, 1 dose of epinephrine and digoxin in the Service Supervisor. Patient appears to be neurologically intact at this time. 3. Hypertension/hyperlipidemia/degenerative disc disease/advanced age/ recent fall/hypothyroidism Complicates care, management, recovery and prognosis. Patient did have a fall, has ecchymosis to left chest but does not appear to have any other external signs of injury. The patient has not required BiPAP therapy in over 24 hours, she is tolerating room air. This note was generated with [employer] dictation software. It may contain incorrect words, spelling, and punctuation that were not noted in checking the note before signing.
[2017-09-18] MEDS: Lisinopril 2.5 MG Tablet PO (11:05)
[2017-09-18] MEDS: Acetaminophen 325 MG Tablet 650 MG PO ×2 (11:40→21:18)
--- NOTE | 2017-09-18 16:52 | CASEMGMT ---
Social Work Assessment Referral Date: 09/18/2017 Date of Assessment: 09/18/2017 Reason for consult: emotional support, bereavement support Informant: BARRY ARMAS Personal Status: SW met with pt to provide emotional support and bereavement support. Pt is alert and orientated x4. Pt states that she lives alone as her 15 years ago and her son 5 years ago. Pt states that her son was killed by a drunk shuttle truck driver. Pt states that she feels like she hasn't been able to cope well with the of her or son. 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 Pt states that she has close family and friends. Pt states that she has a daughter, daughter in law, sisters, a brother and 5 grandchildren that provide support for her. Pt states that she also has good neighbors that provide support for her as well. Pt states that some of her other coping skills are her two dogs, cats, grandkids, and baptism. SW provided emotional support by utilizing active listening skills and providing empathy to pt. SW provided pt with [facility] and provided pt with a list of local mental health agencies that provide counseling services. Pt thanked this worker for the resources. Pt denied additional needs or concerns at this time. She states that she plans on following up with [facility] and/or counseling services. Plan: Return home at discharge and follow up with [facility] and/or counseling services. Becky Mariano MICROSTRATEGY BI DEVELOPER, CAREER DEVELOPMENT ASSOCIATE
[2017-09-18] MEDS: Atorvastatin Calcium 40 MG Tablet PO (21:21)
[2017-09-19] VITALS (12 sets, daily range): BP systolic 95–112; BP diastolic 51–58; PULSE 61–77; RESP 16–20; TEMP 36.6–37.2; O2SAT 95–97
--- NOTE | 2017-09-19 04:26 | CPS ---
PT ASKED IF SHE WANTED TO WEAR BIPAP,PT STATED SHE DIDNT TOLERATE IT WELL LAST NIGHT.AND DOESNT WANT TO WEAR ONE TONIGHT.
--- NOTE | 2017-09-19 05:55 | EKG12_ITS ---
Test Reason : Blood Pressure : / mmHG Vent. Rate : 062 BPM Atrial Rate : 062 BPM P-R Int : 142 ms QRS Dur : 086 ms QT Int : 466 ms P-R-T Axes : 060 020 231 degrees QTc Int : 472 ms Normal sinus rhythm ST & T wave abnormality, consider inferior ischemia ST & T wave abnormality, consider anterolateral ischemia Prolonged QT Abnormal ECG When compared with ECG of 18-SEP-2017 05:28, MANUAL COMPARISON REQUIRED, DATA IS UNCONFIRMED Confirmed by ISAEL RAMSAY, ZANE ([id number]), online content editor WENDY WILLOUGHBY ([id number]) on 09/22/2017 2:24:50 PM Referred By: Confirmed By:ZANE KIRKLAND MD
[2017-09-19] MEDS: Levothyroxine 25 MCG TABLET PO (06:34)
--- NOTE | 2017-09-19 06:57 | PCM.PN.CARD ---
Subjectve: Patient seen and evaluated. Appears to be better this morning said she took a walk yesterday and did okay Objective: Vital Signs Temp Pulse Resp BP Pulse Ox 98.9 F 66 20 H 96/54 L 95 09/19/17 03:05 09/19/17 03:05 09/19/17 03:05 09/19/17 03:05 09/19/17 03:14 Oxygen Flow Rate (L/min) 2 Oxygen Delivery Method Room Air Weight: 157 lb 6.561 oz Body Mass Index (BMI) 29.9 Intake and Output for Last 24 Hours 09/17/17 09/18/17 09/19/17 23:59 23:59 23:59 Intake Total 1180 / 1180 940 / 940 240 / 240 Output Total 1200 / 1200 Balance -20 / -20 940 / 940 240 / 240 General: Awake, Alert, Oriented x 3 HEENT: PERRL, EOMI, Sclera Non Icteric Neck: Supple, Good ROM, No Lymph Node Enlargement Lungs: Clear to auscultation Cardiovascular: Regular Rhythm, Normal S1, Normal S2, No Murmurs, No Rubs, No Gallops Vascular: No Carotid Bruits, Normal Femoral Pulses, Normal Radial Pulses, Normal Dorsalis Pedal Pulse, Normal Posterior Tibial Pulses Abdomen: Bowel Sounds Present, Soft, Non Tender, No HSM, No Organomegaly Extremities: No Cyanosis, No Clubbing, No edema Neurological: No Focal Motor or Sensory Deficit Rhythm: EKG: Normal sinus rhythm with anterior T-wave inversions. Medical Necessity - Tobacco Use Smoking Status: Never smoker Assessment/Plan 1. Non-ST elevation myocardial infarction She has atypical presentation but currently has non-ST elevation myocardial infarction and had continued chest pain. She underwent cardiac catheterization which demonstrated a moderate ostial left anterior descending artery lesion as well as normal circumflex artery and right coronary artery which was normal. She underwent an IVUS procedure which determined that the lesion was not significant. She did have transient ST elevation and hypotension likely from an air embolism. Recovered well from the above Will be to continue beta-anastacio statin and Plavix well as low-dose JANES inhibitor. 2.Takutsobu cardiac myopathy Patient appears to have the above with severe hypokinesis to akinesis of the entire anterior wall apex as well as inferior apical wall the estimated ejection fraction is approximately 20%. We will plan on aggressively treating with beta-anastacio with carvedilol 3.125 mg twice a day, continue lisinopril 2.5 mg a day and will recommend re-evaluate echocardiographic evaluation in 3 months. At that time a stress test may also be performed to relook at the left anterior descending artery lesion. 3. Hypertension Blood pressure under good control on the current medical management. We will continue to treat. We will reduce the dose of the lisinopril to 2.5 mg a day due to hypotension 4. Risk factor modification We will continue with risk factor modification with high intensity statin. 5. Congestive heart failure-systolic acute The above was likely secondary to the transient hypotension, CPR increased IV fluids and epinephrine which was administered. Patient also had an elevated left ventricular end-diastolic pressure. Was treated with BiPAP as well as intravenous Lasix has diuresed appropriately and at this time appears to be doing well., JANES inhibitor his beta blockers and diuretics will be continued. From my standpoint the patient can be discharged and outpatient follow-up will be arranged through my office. Thank you for allowing me to participate in the care of your patient. Please don't hesitate to call if any issues arise
[2017-09-19] MEDS: Aspirin E.C. 81 MG Tablet PO (07:34)
--- NOTE | 2017-09-19 09:22 | PCM.DC ---
- Discharge Diagnoses Current Active Problems: Current Active and Chronic Problems (Last Reviewed 09/11/17 @ 15:48 by Lolita Woodson) Acute respiratory failure with hypoxia (Acute) You will use the following diet at home:: Cardiac Your food should be the consistency of: Regular Discharge Activity: Return to Normal Activity Allergies/Adverse Reactions: Allergies codeine Allergy (Verified 09/15/17 21:04) Other oxycodone HCl [From OxyContin] Allergy (Verified 09/15/17 21:04) Other Medications to take at Discharge Aspirin [Adult Low Dose Aspirin EC] 81 mg PO DAILY 02/22/16 Levothyroxine [Synthroid] 25 mcg PO DAILY 09/15/17 Atorvastatin Calcium [Lipitor] 40 mg PO QHS #90 tab 09/19/17 Carvedilol [Coreg (Beta Maykel)] 3.125 mg PO BID #180 tab 09/19/17 Clopidogrel Bisulfate [Plavix] 75 mg PO DAILY #90 tab 09/19/17 Furosemide [Lasix] 40 mg PO DAILY #30 tab 09/19/17 Lisinopril [Zestril] 2.5 mg PO DAILY #90 tab 09/19/17 The following prescriptions were given: Atorvastatin Calcium [Lipitor] 40 mg PO QHS #90 tab Carvedilol [Coreg (Beta Maykel)] 3.125 mg PO BID #180 tab Clopidogrel Bisulfate [Plavix] 75 mg PO DAILY #90 tab Furosemide [Lasix] 40 mg PO DAILY #30 tab Lisinopril [Zestril] 2.5 mg PO DAILY #90 tab Primary Care Physician: Vivi Carrion MD [Primary Care Provider] - Please follow up with your Primary Care Physician in: in 3-5 days Please Follow Up With: Eduardo Das MD When: in 2-3 weeks Proposed Discharge Date: 09/19/17
--- NOTE | 2017-09-19 09:25 | PCM.DC.SUM ---
Discharge Date and Diagnosis - Problem List Patient Problems: Active and Suspected Problems (Last Reviewed 09/11/17 @ 15:48 by Lolita Woodson) Acute respiratory failure with hypoxia (Acute) Acute systolic (congestive) heart failure (Suspected) EF 20% Date of Admission: 09/15/17 Date of Discharge: 09/19/17 - Primary Discharge Diagnosis Active and Suspected Problems (Last Reviewed 09/11/17 @ 15:48 by Lolita Woodson) Acute respiratory failure with hypoxia (Acute) Acute systolic (congestive) heart failure (Suspected) EF 20% - Secondary Discharge Diagnosis Chronic Problems (Last Reviewed 09/11/17 @ 15:48 by Lolita Woodson) DDD (degenerative disc disease), lumbar (Chronic) Other chest pain (Chronic) Abnormal stress test (Chronic) Hypertension (Chronic) Hyperlipidemia (Chronic) Other rn long term care (current) drug therapy (Chronic) CAD (coronary artery disease) (Chronic) Hospital Course and Treatment Imaging Results: Clinical Impression(s) from Imaging Studies Chest X-Ray 09/15/17 21:47 IMPRESSION: There is mild enlargement of the cardiac silhouette with mild edema. There is no obvious effusion. There is minimal bibasilar atelectasis. Electronically Signed: Keri Freire MD at 22:16 EDT Tel Direct: [phone], Service support , Chest X-Ray 09/16/17 11:24 IMPRESSION: 1. Worsening bilateral pulmonary edema versus inflammatory/infectious infiltrates. 2. Borderline to mild cardiac enlargement. Electronically Signed: Dakota Plummer MD at 14:49 EDT , Service support , Summary of Care Provided: Patient is a 77-year-old lady admitted with atypical chest pain had elevated cardiac enzymes consistent with acute non-ST NE patient underwent left heart catheterization on 09/16/2017 which demonstrated moderate ostial left anterior descending artery lesion as well as normal circumflex artery and right coronary artery which was normal. She underwent an IVUS procedure which determined that the lesion was not significant. Patient apparently did develop hypotension following the procedure CODE BLUE was called successfully resuscitated with CPR and epinephrine. Subsequently transferred to the intensive care unit 1. Acute non-ST NE; patient underwent left heart catheterization on 09/16/2017 which demonstrated moderate ostial left anterior descending artery lesion as well as normal circumflex artery and right coronary artery which was normal. She underwent an IVUS procedure which determined that the lesion was not significant. She was discharged home on optimal medical therapy 2. Cardiopulmonary arrest thought to be secondary to embolism following patient cardiac catheterization; successfully resuscitated with CPR and epinephrine. Subsequently transferred to the intensive care unit 3. Acute systolic congestive heart failure attributed toTakotsubo cardiomyopathy echo demonstrated EF of 20% managed with Lasix held on the morning of 08/19/2017 in view of patient being relatively hypotensive patient condition did stabilize discharged home on both beta blockers as well as MUSA inhibitors. Plan is for patient to have repeat echo within 3 months 4. Hypertension patient antihypertensive medications adjusted with decrease in the dose of lisinopril from 10 to 2.5 did continue with patient's Coreg 5. Acute kidney injury attributed to Lasix dose adjusted 6. Hypothyroidism-patient is on levothyroxine home dose continued 7. Dyslipidemia-patient is on statin therapy, continued at home dose 8. Physical deconditioning requested for PT OT eval 9. DVT prophylaxis with Lovenox Discharge Activity: Return to Normal Activity Home Medications: Medications to take at Discharge Aspirin [Adult Low Dose Aspirin EC] 81 mg PO DAILY 02/22/16 Levothyroxine [Synthroid] 25 mcg PO DAILY 09/15/17 Atorvastatin Calcium [Lipitor] 40 mg PO QHS #90 tab 09/19/17 Carvedilol [Coreg (Beta Maykel)] 3.125 mg PO BID #180 tab 09/19/17 Clopidogrel Bisulfate [Plavix] 75 mg PO DAILY #90 tab 09/19/17 Furosemide [Lasix] 40 mg PO DAILY #30 tab 09/19/17 Lisinopril [Zestril] 2.5 mg PO DAILY #90 tab 09/19/17 Following Prescrptions Were Given to Patient: Atorvastatin Calcium [Lipitor] 40 mg PO QHS #90 tab Carvedilol [Coreg (Beta Maykel)] 3.125 mg PO BID #180 tab Clopidogrel Bisulfate [Plavix] 75 mg PO DAILY #90 tab Furosemide [Lasix] 40 mg PO DAILY #30 tab Lisinopril [Zestril] 2.5 mg PO DAILY #90 tab Primary Care Physician: Vivi Carrion MD [Primary Care Provider] - Please follow up with your Primary Care Physician in: in 3-5 days Please Follow Up With: Eduardo Das MD When: in 2-3 weeks Disposition: Home Minutes spent on discharge:: 38 Patient Condition:: Stable Medical Necessity - Tobacco Use Smoking Status: Never smoker Meaningful Use Info Meaningful Use Diagnoses (Choose all that apply): AMI - AMI Aspirin given w/in 24hrs of arrival?: Yes ASA at discharge?: Yes Statins at discharge?: Yes Musa/ARB at discharge?: Yes Beta Maykel at discharge?: Yes Done w/ Acute NE measure.: Yes Code Visit Inpatient E&M: 38011 Disch Hosp
--- NOTE | 2017-09-19 09:29 | DS.PCM_ITS ---
Discharge Date and Diagnosis - Problem List Patient Problems: Active and Suspected Problems (Last Reviewed 09/11/17 @ 15:48 by Lolita Woodson) Acute respiratory failure with hypoxia (Acute) Acute systolic (congestive) heart failure (Suspected) EF 20% Date of Admission: 09/15/17 Date of Discharge: 09/19/17 - Primary Discharge Diagnosis Active and Suspected Problems (Last Reviewed 09/11/17 @ 15:48 by Lolita Woodson) Acute respiratory failure with hypoxia (Acute) Acute systolic (congestive) heart failure (Suspected) EF 20% - Secondary Discharge Diagnosis Chronic Problems (Last Reviewed 09/11/17 @ 15:48 by Lolita Woodson) DDD (degenerative disc disease), lumbar (Chronic) Other chest pain (Chronic) Abnormal stress test (Chronic) Hypertension (Chronic) Hyperlipidemia (Chronic) Other manager long term care (current) drug therapy (Chronic) CAD (coronary artery disease) (Chronic) Hospital Course and Treatment Imaging Results: Clinical Impression(s) from Imaging Studies Chest X-Ray 09/15/17 21:47 IMPRESSION: There is mild enlargement of the cardiac silhouette with mild edema. There is no obvious effusion. There is minimal bibasilar atelectasis. Electronically Signed: Keri Freire MD at 22:16 EDT Tel Direct: [phone], Service support , Chest X-Ray 09/16/17 11:24 IMPRESSION: 1. Worsening bilateral pulmonary edema versus inflammatory/infectious infiltrates. 2. Borderline to mild cardiac enlargement. Electronically Signed: Dakota Plummer MD at 14:49 EDT , Service support , Summary of Care Provided: Patient is a 77-year-old lady admitted with atypical chest pain had elevated cardiac enzymes consistent with acute non-ST ME patient underwent left heart catheterization on 09/16/2017 which demonstrated moderate ostial left anterior descending artery lesion as well as normal circumflex artery and right coronary artery which was normal. She underwent an IVUS procedure which determined that the lesion was not significant. Patient apparently did develop hypotension following the procedure CODE BLUE was called successfully resuscitated with CPR and epinephrine. Subsequently transferred to the intensive care unit 1. Acute non-ST ME; patient underwent left heart catheterization on 09/16/2017 which demonstrated moderate ostial left anterior descending artery lesion as well as normal circumflex artery and right coronary artery which was normal. She underwent an IVUS procedure which determined that the lesion was not significant. She was discharged home on optimal medical therapy 2. Cardiopulmonary arrest thought to be secondary to embolism following patient cardiac catheterization; successfully resuscitated with CPR and epinephrine. Subsequently transferred to the intensive care unit 3. Acute systolic congestive heart failure attributed toTakotsubo cardiomyopathy echo demonstrated EF of 20% managed with Lasix held on the morning of 08/19/2017 in view of patient being relatively hypotensive patient condition did stabilize discharged home on both beta blockers as well as MUSA inhibitors. Plan is for patient to have repeat echo within 3 months 4. Hypertension patient antihypertensive medications adjusted with decrease in the dose of lisinopril from 10 to 2.5 did continue with patient's Coreg 5. Acute kidney injury attributed to Lasix dose adjusted 6. Hypothyroidism-patient is on levothyroxine home dose continued 7. Dyslipidemia-patient is on statin therapy, continued at home dose 8. Physical deconditioning requested for PT OT eval 9. DVT prophylaxis with Lovenox Discharge Activity: Return to Normal Activity Home Medications: Medications to take at Discharge Aspirin [Adult Low Dose Aspirin EC] 81 mg PO DAILY 02/22/16 Levothyroxine [Synthroid] 25 mcg PO DAILY 09/15/17 Atorvastatin Calcium [Lipitor] 40 mg PO QHS #90 tab 09/19/17 Carvedilol [Coreg (Beta Maykel)] 3.125 mg PO BID #180 tab 09/19/17 Clopidogrel Bisulfate [Plavix] 75 mg PO DAILY #90 tab 09/19/17 Furosemide [Lasix] 40 mg PO DAILY #30 tab 09/19/17 Lisinopril [Zestril] 2.5 mg PO DAILY #90 tab 09/19/17 Following Prescrptions Were Given to Patient: Atorvastatin Calcium [Lipitor] 40 mg PO QHS #90 tab Carvedilol [Coreg (Beta Maykel)] 3.125 mg PO BID #180 tab Clopidogrel Bisulfate [Plavix] 75 mg PO DAILY #90 tab Furosemide [Lasix] 40 mg PO DAILY #30 tab Lisinopril [Zestril] 2.5 mg PO DAILY #90 tab Primary Care Physician: Vivi Carrion MD [Primary Care Provider] - Please follow up with your Primary Care Physician in: in 3-5 days Please Follow Up With: Eduardo Das MD When: in 2-3 weeks Disposition: Home Minutes spent on discharge:: 38 Patient Condition:: Stable Medical Necessity - Tobacco Use Smoking Status: Never smoker Meaningful Use Info Meaningful Use Diagnoses (Choose all that apply): AMI - AMI Aspirin given w/in 24hrs of arrival?: Yes ASA at discharge?: Yes Statins at discharge?: Yes Musa/ARB at discharge?: Yes Beta Maykel at discharge?: Yes Done w/ Acute ME measure.: Yes Code Visit Inpatient E&M: 58192 Disch Hosp
[2017-09-19] MEDS: Carvedilol 3.125 MG TABLET PO ×2 (09:58→21:16)
[2017-09-19] MEDS: Clopidogrel Bisulfate 75 MG Tablet PO (09:58)
[2017-09-19] MEDS: Enoxaparin 40 MG/0.4 ML Syringe SC (09:58)
--- NOTE | 2017-09-19 10:08 | NURSING ---
Called [facility] pharmacy to change Lasix 40mg po daily to Lasix 20mg po daily per Dr. Ghosh's request.
--- NOTE | 2017-09-19 11:18 | NURSING ---
CM made aware of patient's desire to go to a rehabilitation facility before she is to go home.
--- NOTE | 2017-09-19 11:30 | RAD_ITS ---
STUDY: X-RAY - LEFT SHOULDER REASON FOR EXAM: Female, 77 years old. Left shoulder pain. TECHNIQUE: 2 view(s) of the shoulder. COMPARISON: None. FINDINGS: Normal glenohumeral articulation. Normal acromioclavicular joint. Normal acromion. Normal humeral head and visualized proximal humerus. The soft tissue structures are unremarkable. Normal visualized pulmonary apex. RAD/Shoulder min 2 Views IMPRESSION: Normal x-ray examination of the shoulder. Electronically Signed: Bernard Clemente MD at 14:56 EDT Tel [phone], Service support ,
--- NOTE | 2017-09-19 13:31 | PN_ITS ---
Patient Problems: Active and Suspected Problems (Last Reviewed 09/11/17 @ 15:48 by Lolita Woodson) Acute respiratory failure with hypoxia (Acute) Acute systolic (congestive) heart failure (Suspected) EF 20% Subjective: Plan was for patient to have been discharged home today however after discussions with the she elected to consider going to [facility] for therapy prior to going home Objective: GENERAL: cooperative HEENT: Clear conjunctiva, NECK; supple, normal thyroid, CHEST: Diminished to auscultation bilaterally, . HEART: Regular S1 S2, no audible murmurs ABDOMEN: soft, non-tender, normoactive bowel sounds, RECTAL: deferred EXTREMITIES: No edema, no clubbing, no cyanosis. SKIP HOIST OPERATOR: Awake, no lateralizing signs. SKIN: No rash Vitals/I&O's: Vital Signs Temp Pulse Resp BP Pulse Ox 97.8 F 61 17 95/51 L 97 09/19/17 09:05 09/19/17 11:01 09/19/17 09:05 09/19/17 09:05 09/19/17 09:05 Oxygen Flow Rate (L/min) 2 Oxygen Delivery Method Room Air Weight: 71.4 kg Body Mass Index (BMI) 29.9 Intake and Output for Last 24 Hours 09/17/17 09/18/17 09/19/17 23:59 23:59 23:59 Intake Total 1180 / 1180 940 / 940 600 / 600 Output Total 1200 / 1200 Balance -20 / -20 940 / 940 600 / 600 Current Medications Acetaminophen (Tylenol) 650 mg PO Q6H PRN PRN PRN Reason: Headache, fever, pain Last Admin: 09/18/17 21:18 Dose: 650 mg [facility] Last Admin: 09/19/17 07:34 Dose: 81 mg Atorvastatin Calcium (Lipitor) 40 mg PO QHS [facility] Last Admin: 09/18/17 21:21 Dose: 40 mg Atropine Sulfate () 0.5 mg IV UD PRN PRN Reason: HR <50 bpm Carvedilol (Coreg) 3.125 mg PO BID [facility] Last Admin: 09/19/17 09:58 Dose: 3.125 mg Clopidogrel Bisulfate (Plavix) 75 mg PO DAILY [facility] Last Admin: 09/19/17 09:58 Dose: 75 mg Enoxaparin Sodium (Lovenox) 40 mg SC DAILY [facility] Last Admin: 09/19/17 09:58 Dose: 40 mg Furosemide (Lasix) 40 mg PO DAILY [facility] Last Admin: 09/19/17 09:56 Dose: Not Given Levothyroxine Sodium (Synthroid) 25 mcg PO DAILY@0600 [facility] Last Admin: 09/19/17 06:34 Dose: 25 mcg Lisinopril (Zestril) 2.5 mg PO DAILY [facility] Last Admin: 09/19/17 09:56 Dose: Not Given Magnesium Hydroxide (Milk Of Magnesia) 30 ml PO DAILY PRN PRN Reason: Constipation Ondansetron HCl (Zofran) 4 mg IV Q6H PRN PRN PRN Reason: NAUSEA/VOMITING Sodium Chloride () 5 - 30 ml IV UD PRN PRN Reason: SALINE FLUSH Last Admin: 09/17/17 10:14 Dose: 10 ml Medical Necessity - Tobacco Use Smoking Status: Never smoker Assessment/Plan Active and Suspected Problems (Last Reviewed 09/11/17 @ 15:48 by Lolita Woodson) Acute respiratory failure with hypoxia (Acute) Acute systolic (congestive) heart failure (Suspected) EF 20% Patient is a 77-year-old lady admitted with atypical chest pain had elevated cardiac enzymes consistent with acute non-ST [place] patient underwent left heart catheterization on 09/16/2017 which demonstrated moderate ostial left anterior descending artery lesion as well as normal circumflex artery and right coronary artery which was normal. She underwent an IVUS procedure which determined that the lesion was not significant. Patient apparently did develop hypotension following the procedure CODE BLUE was called successfully resuscitated with CPR and epinephrine. Subsequently transferred to the intensive care unit 1. Acute non-ST [place]; patient underwent left heart catheterization on 09/16/2017 which demonstrated moderate ostial left anterior descending artery lesion as well as normal circumflex artery and right coronary artery which was normal. She underwent an IVUS procedure which determined that the lesion was not significant. Patient on optimal medical therapy 2. Cardiopulmonary arrest thought to be secondary to embolism following patient cardiac catheterization; successfully resuscitated with CPR and epinephrine. Subsequently transferred to the intensive care unit 3. Acute systolic congestive heart failure attributed toTakotsubo cardiomyopathy echo demonstrated EF of 20% managed with Lasix held on the morning of 08/19/2017 in view of patient being relatively hypotensive 4. Hypertension patient antihypertensive medications adjusted with decrease in the dose of lisinopril from 10 to 2.5 did continue with patient's Coreg dose of 3.125 mg 5. Acute kidney injury attributed to Lasix dose adjusted 6. Hypothyroidism-patient is on levothyroxine home dose continued 7. Dyslipidemia-patient is on statin therapy, continued at home dose 8. Physical deconditioning requested for PT OT eval patient did agree to consider going to [facility] facility 9. DVT prophylaxis with Lovenox Code Visit Inpatient E&M: 29831 Subs Hosp L2
--- NOTE | 2017-09-19 13:45 | CASEMGMT ---
Addendum entered by Suly Vega 09/19/17 15:35: SW received a call from Milena at [facility] and they will accept patient. She started the process to obtain pre-cert. SW let patient know this information. Plan: [facility] pending insurance approval. Suly CERVANTES HOTEL HOUSEKEEPER Original Note: SW was told patient and family are wanting patient to go to a care home for rehab. SW spoke with therapy and they feel patient is fine for home with outpatient or home health. She said she spoke with patient about this, but she still wants to go to a care home. SW met with patient, introduced self and role at [facility]. SW told her that SW is not sure insurance will approve her to go to a care home as therapy is recommending home with outpatient or home health and she walked 200' with supervision. She said she has steps that she has to use at home and she lives alone. SW told her that all of that information is in the therapy notes, but insurance does not always take that into consideration. HOLGER told her TCU is full so she would have to choose another facility. She said she has been to [facility] before. HOLGER told her SW will call [facility] and make a referral. SW will let her know when SW hears from [facility]. HOLGER called Milena at [facility] and left her a voice mail. HOLGER also faxed over referral. Await return call from [facility]. Suly CERVANTES HOTEL HOUSEKEEPER
--- NOTE | 2017-09-19 13:48 | NURSING ---
Spoke with [id number] extensively related to patient's safety at home. Patient had wanted to go home earlier this am, but she has now decided that she would like to go to a nursing facility for rehabilitation.
--- NOTE | 2017-09-19 16:24 | CHAPLAIN ---
Type of Pastoral Visit _x__ Initial Visit ___ Follow-up Visit ___ On-call Visit ___ General Patient Visit ___ Spiritual Assessment ___ Family Conference ___ Bereavement ___ Rapid Response ___ Code Blue ___ Other (describe below) Pastoral Care Referral From _x__ Patient ___ Family _x__ Nurse ___ Physician ___ Marine Habitat Resource Specialist ___ Social Sciences Instructor ___ Other (describe below) Sacrament/Intervention _x__ Active listening ___ Anointing ___ Protestant ___ Bereavement ___ Communion _x__ Venessa exploration ___ _x__ Life review _x__ Prayer ___ Reconciliation ___ Sacrament of Sick _x__ Supportive presence ___ Wedding ___ Other (describe below) Pastoral Comments
--- NOTE | 2017-09-19 19:34 | NURSING ---
Daughter at bedside while patient was eating her supper. Patient states that she felt some indigestion that resolved quickly. Says this happens to her when she eats too fast. Denied pain to arms or jaw. Denies chest pain or shortness of breath. Patient informed to alert staff if this happened again. Patient agreed to same. No further complaints this shift. Family is at bedside. Patient is sitting up in bed laughing and visiting with family. No distress noted. Denies further complaints of indigestion.
[2017-09-19] MEDS: Atorvastatin Calcium 40 MG Tablet PO (21:16)
[2017-09-20 03:00] VITALS: PULSE 65
[2017-09-20 03:05] VITALS: BP 103/56; PULSE 66; RESP 16; TEMP 36.7; O2SAT 95
[2017-09-20] MEDS: Acetaminophen 325 MG Tablet 650 MG PO (03:25)
[2017-09-20] MEDS: Levothyroxine 25 MCG TABLET PO (06:47)
[2017-09-20 07:12] VITALS: PULSE 58
[2017-09-20 07:22] VITALS: O2SAT 95
[2017-09-20] MEDS: Aspirin E.C. 81 MG Tablet PO (08:30)
[2017-09-20 09:05] VITALS: BP 128/70; PULSE 64; RESP 16; TEMP 36.7; O2SAT 99
--- NOTE | 2017-09-20 09:05 | CASEMGMT ---
HOLGER spoke with patient's daughter, Kenia this am. She asked SW to fill her in on d/c plan. HOLGER told her that [facility] is able to take her, but we are waiting on insurance. HOLGER told her there is a good chance that insurance will deny long-term as therapy recommended home and she walked over 200'. HOLGER told her if this happens SW will set up home health. HOLGER then explained what insurance covers as far as home health. Explained nurse would be out once or so a week and then PT/OT would be out a couple of times a week. She asked SW to call her when SW gets more information. Suly CERVANTES AUTOMATIC FURNACE OPERATOR
--- NOTE | 2017-09-20 09:50 | PN_ITS ---
Patient Problems: Active and Suspected Problems (Last Reviewed 09/11/17 @ 15:48 by Lolita Woodson) Acute respiratory failure with hypoxia (Acute) Acute systolic (congestive) heart failure (Suspected) EF 20% Subjective: Patient seen her blood pressure control continues to improve. Plan is for patient to be discharged to long-term facility pending insurance approval Objective: GENERAL: cooperative HEENT: Clear conjunctiva, NECK; supple, normal thyroid, CHEST: Diminished to auscultation bilaterally, . HEART: Regular S1 S2, no audible murmurs ABDOMEN: soft, non-tender, normoactive bowel sounds, RECTAL: deferred EXTREMITIES: No edema, no clubbing, no cyanosis. CUSTOMER EQUIPMENT ENGINEER: Awake, no lateralizing signs. SKIN: No rash Vitals/I&O's: Vital Signs Temp Pulse Resp BP Pulse Ox 98.0 F 64 16 128/70 H 99 09/20/17 09:05 09/20/17 09:05 09/20/17 09:05 09/20/17 09:05 09/20/17 09:05 Oxygen Flow Rate (L/min) 2 Oxygen Delivery Method Room Air Weight: 70.3 kg Body Mass Index (BMI) 29.9 Intake and Output for Last 24 Hours 09/18/17 09/19/17 09/20/17 23:59 23:59 23:59 Intake Total 940 / 940 960 / 960 480 / 480 Balance 940 / 940 960 / 960 480 / 480 Current Medications Acetaminophen (Tylenol) 650 mg PO Q6H PRN PRN PRN Reason: Headache, fever, pain Last Admin: 09/20/17 03:25 Dose: 650 mg [facility] Last Admin: 09/20/17 08:30 Dose: 81 mg Atorvastatin Calcium (Lipitor) 40 mg PO QHS [facility] Last Admin: 09/19/17 21:16 Dose: 40 mg Atropine Sulfate () 0.5 mg IV UD PRN PRN Reason: HR <50 bpm Carvedilol (Coreg) 3.125 mg PO BID [facility] Last Admin: 09/19/17 21:16 Dose: 3.125 mg Clopidogrel Bisulfate (Plavix) 75 mg PO DAILY [facility] Last Admin: 09/19/17 09:58 Dose: 75 mg Enoxaparin Sodium (Lovenox) 40 mg SC DAILY [facility] Last Admin: 09/19/17 09:58 Dose: 40 mg Furosemide (Lasix) 40 mg PO DAILY [facility] Last Admin: 09/19/17 09:56 Dose: Not Given Levothyroxine Sodium (Synthroid) 25 mcg PO DAILY@0600 [facility] Last Admin: 09/20/17 06:47 Dose: 25 mcg Lisinopril (Zestril) 2.5 mg PO DAILY [facility] Last Admin: 09/19/17 09:56 Dose: Not Given Magnesium Hydroxide (Milk Of Magnesia) 30 ml PO DAILY PRN PRN Reason: Constipation Ondansetron HCl (Zofran) 4 mg IV Q6H PRN PRN PRN Reason: NAUSEA/VOMITING Sodium Chloride () 5 - 30 ml IV UD PRN PRN Reason: SALINE FLUSH Last Admin: 09/17/17 10:14 Dose: 10 ml Medical Necessity - Tobacco Use Smoking Status: Never smoker Assessment/Plan Active and Suspected Problems (Last Reviewed 09/11/17 @ 15:48 by Lolita Woodson) Acute respiratory failure with hypoxia (Acute) Acute systolic (congestive) heart failure (Suspected) EF 20% Patient is a 77-year-old lady admitted with atypical chest pain had elevated cardiac enzymes consistent with acute non-ST CT patient underwent left heart catheterization on 09/16/2017 which demonstrated moderate ostial left anterior descending artery lesion as well as normal circumflex artery and right coronary artery which was normal. She underwent an IVUS procedure which determined that the lesion was not significant. Patient apparently did develop hypotension following the procedure CODE BLUE was called successfully resuscitated with CPR and epinephrine. Subsequently transferred to the intensive care unit 1. Acute non-ST CT; patient underwent left heart catheterization on 09/16/2017 which demonstrated moderate ostial left anterior descending artery lesion as well as normal circumflex artery and right coronary artery which was normal. She underwent an IVUS procedure which determined that the lesion was not significant. Patient on optimal medical therapy 2. Cardiopulmonary arrest thought to be secondary to embolism following patient cardiac catheterization; successfully resuscitated with CPR and epinephrine. Subsequently transferred to the intensive care unit 3. Acute systolic congestive heart failure attributed toTakotsubo cardiomyopathy echo demonstrated EF of 20% managed with Lasix held on the morning of 08/19/2017 in view of patient being relatively hypotensive 4. Hypertension patient antihypertensive medications adjusted with decrease in the dose of lisinopril from 10 to 2.5 did continue with patient's Coreg dose of 3.125 mg 5. Acute kidney injury attributed to Lasix dose adjusted 6. Hypothyroidism-patient is on levothyroxine home dose continued 7. Dyslipidemia-patient is on statin therapy, continued at home dose 8. Physical deconditioning requested for PT OT eval patient did agree to consider going to long-term facility 9. DVT prophylaxis with Lovenox Code Visit Inpatient E&M: 36941 Subs Hosp L2
[2017-09-20] MEDS: Carvedilol 3.125 MG TABLET PO (11:13)
[2017-09-20] MEDS: Clopidogrel Bisulfate 75 MG Tablet PO (11:13)
[2017-09-20] MEDS: Lisinopril 2.5 MG Tablet PO (11:13)
[2017-09-20] MEDS: Enoxaparin 40 MG/0.4 ML Syringe SC (11:13)
[2017-09-20] MEDS: Furosemide 40 MG Tablet PO (11:13)
--- NOTE | 2017-09-20 11:27 | CASEMGMT ---
Addendum entered by Suly Vega 09/20/17 14:09: HOLGER spoke with Edda at [facility] and they can take patient. HOLGER wrote down [facility]'s phone number and gave it to patient. HOLGER told her home health will call her and set up a time to see her. HOLGER spent some more time with patient reassuring her that she is doing well and home health will be good for her. She thanked HOLGER for all the help Suly ROYAL Original Note: Addendum entered by Suly Vega 09/20/17 11:34: SW received a call from Kenia, patient's daughter. Patient does not want to wait on her to come to the hospital so her aunt is going to hand picker patient earlier. HOLGER told her SW has a call out to [facility] and am waiting for a call back. SW told her SW will let her know what home health SW ends up getting for her mom. Plan: home with home health Suly ROYAL Original Note: HOLGER received a voice mail from Milena at [facility] and insurance did deny patient. HOLGER called patient's daughter, Kenia, and let her know this information. She is okay with any home health agency. HOLGER also told her patient will need to be homebound while she has home health. She said she will hand picker patient today around 3p. She said she will call her mom and let her know this information. HOLGER called Edda at [facility] and left a with referral. Plan: home with home health Suly ROYAL
--- NOTE | 2017-09-20 14:18 | CASEMGMT ---
HOLGER called patient's sister, Karley back per her request. She asked SW who told patient that she had to go home. She said she is not safe for home she can barely walk. SW told her that patient is actually doing really well. She is able to get around on her own. HOLGER told her that a referral was sent to [facility], they sent information to insurance for approval and insurance denied her. She asked why. HOLGER told her that again patient is doing really well. HOLGER also told her that set up home health for patient. She said she has the same insurance and patient just has to pay a $500 deductible and they will pay the rest. SW explained to her that may be true if insurance approved it, but they have denied it. She verbalized understanding. She said she will be in to continuous pickling line pickler patient. She thanked HOLGER for calling her back. Plan: Home with [facility] long-term, PT, OT, and HOLGER. Suly CERVANTES MSW
== END 2017-09-20 16:09 | disposition home or self-care (01) | DRG 280 ==
LOC: ED 21:37 → PCU 23:18 → ICU 09-16 11:26 → PCU 09-17 13:59
PROVIDERS: Internal Medicine Cardiovascular Disease; Internal Medicine Critical Care Medicine; Admitting Provider Hospitalist; Emergency Provider Emergency Medicine; Family Provider Family Medicine; PCP Family Medicine; Visit Provider Internal Medicine
DX: I21.4 Non-ST elevation (NSTEMI) myocardial infarction (principal); I50.21 Acute systolic (congestive) heart failure; I46.9 Cardiac arrest, cause unspecified; J96.01 Acute respiratory failure with hypoxia; N17.9 Acute kidney failure, unspecified; I51.81 Takotsubo syndrome; I47.1 Supraventricular tachycardia; I11.0 Hypertensive heart disease with heart failure; E78.5 Hyperlipidemia, unspecified; E03.9 Hypothyroidism, unspecified; I25.10 Atherosclerotic heart disease of native coronary artery without angina pectoris; M51.36 Other intervertebral disc degeneration, lumbar region; Z79.82 Long term (current) use of aspirin; Z79.899 Other long term (current) drug therapy
CPT/HCPCS: 36415; 36600; 71045; 73030; 80048; 82550; 82803; 83605; 83735; 83880; 84100; 84484; 85025; 85347; 85610; 85730; 92978; 93005; 93306; 93458; 94002; 97110; 97116; 97162; 97166; 97530; 97535; 99152; 99153; 99285; J7040; Q9967; A4216; C1753; C1769; C1887; C1894; J1940; J2405

== ENCOUNTER 2017-09-23 09:58 | Emergency (ER) | payer MEDICARE, SELFPAY ==
[2017-09-23 10:00] VITALS: BP 148/80; PULSE 70; RESP 17; TEMP 36.8; O2SAT 97; BMI 29.8
--- NOTE | 2017-09-23 10:13 | EKG12_ITS ---
Test Reason : CHEST PAIN Blood Pressure : / mmHG Vent. Rate : 072 BPM Atrial Rate : 072 BPM P-R Int : 142 ms QRS Dur : 090 ms QT Int : 414 ms P-R-T Axes : 055 -07 144 degrees QTc Int : 453 ms Normal sinus rhythm T wave abnormality, consider lateral ischemia Abnormal ECG Confirmed by ISAEL RAMSAY, ZANE ([id number]), sound editor WENDY WILLOUGHBY ([id number]) on 09/26/2017 1:06:45 PM Referred By: AYMILA Confirmed By:ZANE KIRKLAND MD
--- NOTE | 2017-09-23 10:15 | RAD_ITS ---
STUDY: X-RAY CHEST REASON FOR EXAM: Female, 77 years old. Chest pain. Shortness of breath. TECHNIQUE: AP upright portable view. COMPARISON: 09/16/2017. FINDINGS: The lungs are clear and expanded. There is no demonstrated pleural abnormality. Cardiomegaly is unchanged. Normal mediastinum. There may be calcified nodes in both clarisa. Normal visualized pulmonary arteries. Normal visualized aortic arch and descending thoracic aorta. Normal visualized thoracic spine. Normal visualized ribs, clavicles, and shoulders. There is no demonstrated abnormality of the visualized soft tissue structures of the upper abdomen. RAD/Chest 1 View (Portable) IMPRESSION: 1. No acute cardiopulmonary pathology. 2. Interval clearing of pneumonia and/or edema in both lungs. Electronically Signed: Johny Braun MD at 10:37 EDT , Service support ,
[2017-09-23] MEDS: 0.9% Normal Saline 1,000 ML 150 ML IV (10:31)
[2017-09-23] MEDS: Aspirin 81 MG TAB.CHEW 324 MG PO (10:32)
[2017-09-23 10:33] VITALS: O2SAT 97
[2017-09-23 10:34] LABS: Absolute Neutrophil Count 4.9 X10^3/uL (2.0-7.7); Basophil# 0.02 X10^3/uL; Basophil% 0.3 % (0-1); Eosinophil# 0.17 X10^3/uL; Eosinophils% 2.6 % (0-5); Hemoglobin 9.8 g/dl (12.0-15.0); Lymphocyte % 18.2 % (19-41); Mean Corp Hgb Conc 31.6 g/gl (32-36); Mean Corpuscular Hgb 26.3 pg (27.0-32.0); Mean Corpuscular Volume 83.3 fL (81-99); Mean Platelet Vol. 10.7 fl (6.2-12.0); Monocyte# 0.31 X10^3/uL; Monocyte% 4.7 % (0-10); Neutrophil # 4.87 X10^3/uL (2.7-7.7); Platelet Count 192 K/mm3 (150-450); RBC Distribution Width CV 14.8 % (11.6-14.6); RBC Distribution Width SD 45.6 fl (35.1-43.9); Red Blood Count 3.72 M/mm3 (4.2-5.4); White Blood Count 6.6 K/mm3 (4.4-11.0)
[2017-09-23 10:36] LABS: POSITIVE COUNT NO; POSITIVE DIFFERENTIAL NO; POSITIVE MORPHOLOGY NO
--- NOTE | 2017-09-23 10:39 | ED.DCSUM_ITS ---
- ER Visit Summary Date of Service: 09/23/17 Chief Complaint: [] Chest pain for about 15-20 minutes last night resolved History of Present Illness: The patient is a 77 F [] she indicates she was noted to the hospital Monday for chest pain which she describes was found to have a broken heart NC, she indicates she had a cardiac catheter procedure that showed no CAD no cardiac stents were necessary her symptoms improved she was discharged home she was indicated this is her second cardiac catheter procedure with no signs of CAD but nothing further would be required other than close outpatient monitoring she went to sleep last night she had trouble sleeping sometime 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 she had chest pain lasting 15-20 minutes she eventually fell asleep came to the hospital because she called her physicians to inform them of the above and she was sent in she is having no chest pain now no fever no cough no abdominal pain orthopnea or PND no leg swelling she states she feels fine she is does not wish to be in the hospital only came in at the request of her physicians Physical Examination: [] Her vital signs are within normal range she is in no distress head neck chest unremarkable lungs are clear heart tones are normal the abdomen soft nontender upper lower extremities unremarkable neurologically she is awake alert moving all 4 Test Results: [] Emergency Department Course and Treatment: [] EKG shows a sinus rhythm nothing acute, troponin is down to about 0.12 her labs are unremarkable, her chest x- ray is unremarkable did review her discharge sheet she did have a non-STEMI acute respiratory failure ejection fraction 20% she did have a cardiac cath that showed questionable lesion involving the LAD she had an IVUS procedure that showed that the lesion was not significant causing no abnormalities of flow related to that she had some type of an issue where a CODE BLUE was called she was given CPR and epinephrine resuscitated per the note she was placed in the ICU We discussed admission with her I explained this would be appropriate given her recent history and that history above, she understood the risk of sudden cardiac her daughter was in the room with her she was already back to me my concerns about all the above she is awake alert coherent and competent she refused admission she did agree to take her medications and follow-up with her doctors return for change in symptoms Treatment Plan: [] Disposition: [] Home stable declined admission Impression: [] chest pain, recent non-STEMI NC declined admission This note was generated with [employer] software. It may contain incorrect words, spelling, and punctuation that were not noted in review of the chart prior to signing ED Disposition - Plan for ED Patient: Chief Complaint: Chest Pain Referrals: Vivi Carrion MD [Primary Care Provider] -
[2017-09-23 10:49] LABS: Anion Gap 6 (5-15); BUN 22 mg/dL (7-18); BUN/Creat Ratio 23.1 RATIO (10-20); Calcium,Total 8.5 mg/dL (8.5-10.1); Chloride 108 mmol/L (98-107); Creatinine, Serum 0.95 mg/dL (0.55-1.02); EST Glomerular Filtration Rate 61 mL/min (>60); Est Glom Filt Rate - Afr Amer 73 mL/min (>60); Estimated Creatinine Clearance 39.85 ml/min; Glucose 101 mg/dL (74-106); Potassium 4.2 mmol/L (3.5-5.1); Sodium Level 142 mmol/L (136-145)
[2017-09-23 11:55] VITALS: BP 129/72; PULSE 67; RESP 15; O2SAT 99
--- NOTE | 2017-09-23 12:34 | ED.DEP ---
ED Disposition - Plan for ED Patient: Chief Complaint: Chest Pain Instructions: ED Chest Pain UKO Ch, Unstable Angina Referrals: Vivi Carrion MD [Primary Care Provider] -
[2017-09-23 12:45] VITALS: BP 121/61; PULSE 66; RESP 18; O2SAT 99
--- NOTE | 2017-09-26 15:30 | CASEMGMT ---
RN CM DISCHARGE F/U PHONE CALL LACBelgica: Tobias STRATA: 3 CALL DATE: 09/26/17 DISCHARGE DATE: 09/20/17 TIME OF CALL: 1520 DURATION: 8MINUTES ADM DX: CHEST PAIN ACCORDING TO RECORD, PT RETURNED TO ED 09/23/17 FOR CHEST PAIN AND WAS DISCHARGED. PT STATES THAT SHE HAS BEEN 'TIRED' SINCE DISCHARGE FROM INPT. PT SEEMS VERY ANXIOUS VIA PHONE AND STATES CHEST PAIN STILL COMES AND GOES DEPENDING ON WHAT'S GOING ON, BUT IT HAS BEEN DECREASING. PT STATES SHE DID F/U WITH DR SANON YESTERDAY AND HAS A CALL OUT TO DR. KIRKLAND FOR F/U. THIS RN CM ALSO ASKED PT ABOUT [facility] AND PT STATES 'OH, I FORGOT ABOUT THAT, THANK YOU FOR REMINDING ME, I WILL GIVE THEM A CALL.' PT STATES NO FURTHER QUESTIONS/CONCERNS REGARDING D/C INSTRUCTIONS OR MEDICATIONS AT THIS TIME. PT STATES NO SUGGESTIONS/CONCERNS WITH VISIT AND THANKED THIS RN CM FOR THE CALL AT THIS TIME. SSTATEN RN CM
== END 2017-09-23 12:47 | disposition home or self-care (01) ==
PROVIDERS: Emergency Provider Emergency Medicine; Family Provider Family Medicine; PCP Family Medicine
DX: R07.9 Chest pain, unspecified (principal); I21.4 Non-ST elevation (NSTEMI) myocardial infarction; Z79.82 Long term (current) use of aspirin; Z79.02 Long term (current) use of antithrombotics/antiplatelets; Z79.899 Other long term (current) drug therapy
CPT/HCPCS: 71045; 80048; 84484; 85025; 93005; 96361; 96374; 96375; 99285; J7030; A4216; J2405

== ENCOUNTER → 2017-10-16 11:16 | Outpatient (CLI) | payer MEDICARE, SELFPAY ==
--- NOTE | 2017-10-16 11:16 | DT_ITS ---
This patient was seen during an EMR downtime October 16, 2017 - October 23, 2017. This patient may have a combination of paper and electronic documentation or all paper documentation. All documentation is viewable within the e-chart portion of [facility] for each patient visit.
== END ==
PROVIDERS: Family Provider Family Medicine; PCP Family Medicine; Visit Provider Family Medicine
DX: I25.10 Atherosclerotic heart disease of native coronary artery without angina pectoris (principal)

== ENCOUNTER → 2017-10-16 11:33 | Outpatient (CLI) | payer MEDICARE, SELFPAY ==
--- NOTE | 2017-10-16 11:33 | DT_ITS ---
This patient was seen during an EMR downtime October 16, 2017 - October 23, 2017. This patient may have a combination of paper and electronic documentation or all paper documentation. All documentation is viewable within the e-chart portion of [facility] for each patient visit.
[2017-10-22 03:37] LABS: Hematocrit 35.9 % (37-47); Hemoglobin 11.1 g/dl (12.0-15.0); Mean Corp Hgb Conc 30.9 g/gl (32-36); Mean Corpuscular Hgb 26.9 pg (27.0-32.0); Mean Corpuscular Volume 87.1 fL (81-99); RBC Distribution Width CV 15.2 % (11.6-14.6); RBC Distribution Width SD 47.8 fl (35.1-43.9); Red Blood Count 4.12 M/mm3 (4.2-5.4)
[2017-10-22 03:38] LABS: Absolute Lymphocyte Count 1.21 X10^3/ul (0.83-4.51); Basophil# 0.02 X10^3/uL; Basophil% 0.3 % (0-1); Eosinophil# 0.21 X10^3/uL; Lymphocyte # 1.21 X10^3/ul (4.0); Lymphocyte % 17.4 % (19-41); Mean Platelet Vol. 12.2 fl (6.2-12.0); Monocyte# 0.47 X10^3/uL; Monocyte% 6.8 % (0-10); Neutrophil # 5.03 X10^3/uL (2.7-7.7); Neutrophil % 72.4 % (47-70); POSITIVE COUNT NO; POSITIVE DIFFERENTIAL NO; POSITIVE MORPHOLOGY NO; Platelet Count 174 K/mm3 (150-450)
[2017-10-22 03:58] LABS: BUN 21 mg/dL (7-18); BUN/Creat Ratio 18.4 RATIO (10-20); Calcium,Total 8.9 mg/dL (8.5-10.1); Creatinine, Serum 1.14 mg/dL (0.55-1.02); EST Glomerular Filtration Rate 49 mL/min (>60); Est Glom Filt Rate - Afr Amer 59 mL/min (>60); Glucose 74 mg/dL (74-106)
[2017-10-22 03:59] LABS: Anion Gap 6 (5-15); Chloride 106 mmol/L (98-107); Potassium 3.8 mmol/L (3.5-5.1); Sodium Level 140 mmol/L (136-145)
== END ==
PROVIDERS: Family Provider Family Medicine; PCP Family Medicine; Visit Provider Family Medicine
DX: I25.10 Atherosclerotic heart disease of native coronary artery without angina pectoris (principal)
CPT/HCPCS: 36415; 80048; 85025

== ENCOUNTER → 2017-11-17 13:00 | Outpatient (CLI) | payer MEDICARE, SELFPAY ==
--- NOTE | 2017-11-17 13:01 | PCM.CR.HP2 ---
CR - History & Physical - General Arrival date:: 11/17/17 Arrival time:: 13:01 Date of Referral:: 11/08/17 Date of CR Evaluation:: 11/17/17 Referring Physician: Dr. Antonio Dacosta Primary Diagnosis: I21.4 NSTEMI, I51.81 Takotsubo syndrome 09/23/2017 - History of Present Cardiac Event Onset Date: Enter Onset Date of cardiac illnesses in Comment field below Current stable Angina Pectoris:: Yes Acute Myocardial Infarction within 12 months:: Yes - Medications Home Medications: Ambulatory Orders Medication Instructions Recorded Aspirin [Adult Low Dose Aspirin EC] 81 mg PO DAILY 02/22/16 Levothyroxine [Synthroid] 25 mcg PO DAILY 09/15/17 Atorvastatin Calcium [Lipitor] 40 mg PO QHS #90 tab 09/19/17 Carvedilol [Coreg (Beta Maykel)] 3.125 mg PO BID #180 tab 09/19/17 Clopidogrel Bisulfate [Plavix] 75 mg PO DAILY #90 tab 09/19/17 Furosemide [Lasix] 40 mg PO DAILY #30 tab 09/19/17 Lisinopril [Zestril] 2.5 mg PO DAILY #90 tab 09/19/17 - Allergies Allergies/Adverse Reactions: Allergies codeine Allergy (Verified 09/15/17 21:04) Other oxycodone HCl [From OxyContin] Allergy (Verified 09/15/17 21:04) Other - Sleep Disorder Evaluation Hx of Sleep Apnea: No Do you snore loudly (louder than talking or can be heard through closed doors)?: No Do you often feel tired/ fatigued/ sleepy during daytime?: No Has anyone observed you stop breathing during sleep?: No History of Hypertension (for STOP score): Yes STOP Results: Negative Advanced Directives - Advanced Directives Power of Doorperson Or Luggage Porter: Yes Living Will: Yes Advance Directives Information Provided: Yes Advance Directives on File: No DNR Order?:: Yes Past Medical History - Past Medical Illness Medical History: Past Medical History (Last Reviewed 09/11/17 @ 15:48 by Lolita Woodson) Other chest pain (Chronic) R07.89 Abnormal stress test (Chronic) R94.39 Hypertension (Chronic) I10 Hyperlipidemia (Chronic) E78.5 Other detention (current) drug therapy (Chronic) Z79.899 CAD (coronary artery disease) (Chronic) I25.10 - Past Surgical History Surgical History: appendectomy, total knee arthroplasty, - - section. 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 Left click = Reports ([place]) Review of Present Symptoms: Reports: Angina, Appetite - Normal, Sleep - Normal. Denies: Shortness of Breath at Rest, Shortness of Breath with Exertion, PVD, Operative Discomfort, Wound Healing, Dizziness/Lightheadedness, Fatigue, Heart Arrhythmia/Irregularities, Appetite - Special Diet, Sexual Changes - Pain Is Patient Pain Free?: No Pain Location: other - shoulder Pain Level: 12/22 Risk Factor Assessment - Chief Complaint Chief Complaint: NSTEMI, Takotsubo syndrome - Vital Signs Pulse Ox: 98 Blood Pressure: 116/64 - Pulse Pulse Rate: 50 Pulse Rhythm: Regular - Hypertension Blood Pressure Sitting - Left Arm: 116/64 - Stress Stress: Long-standing - Diabetes Nutrition Referral for Diabetes: No - Obesity Height: 1.63 m Weight:: 74.389 kg Weight in Pounds: 164.0 lbs Weight Source: Standing Scale Body Mass Index (BMI): 28.1 Nutritional Referral for Obesity: No - Physical Inactivity Physical Inactivity: Reg Exercise 30 min/day, Physically demanding job, Recreational activity, None - Risk Stratification Risk Guidelines: Moderate Risk: Risk Factor for Smoking, Risk Factor for Dyslipidemia, Risk Factor for Diabetes, Risk Factor for Obesity, Risk Factor for Hypertension, Risk Factor for Sedentary Lifestyle, Risk Factor for Depression - For Smoking Smoking Risk Guidelines: Smoking Low Risk: None or quit greater than 6 months ago. Smoking Moderate Risk: Smoker or quit 6 months or less ago. Smoking High Risk: Smoker - For Dyslipidemia Dyslipidemia Risk Guidelines: Low Risk: Moderate Risk: High Risk: 15-25% fat 25.1-29% fat >/= 30% fat. <7% sat fat 7-9% sat fat >9% sat fat. <150 mg chol 150-299 mg chol >/= 300 mg chol. LDL <100 LDL 100-129 LDL >/= 130. Chol/HDL ratio <5.0 Chol/HDL ratio 5.0-6.0 Chol/HDL ratio >6.0. Triglycerides <100 Triglycerides 100-149 Triglycerides >/= 150 - For Diabetes Mellitus Diabetes Risk Guidelines: Diabetes Low Risk: HgA1c <6.5% and/or FBG <120. Diabetes Moderate Risk: HgA1c 6.6-7.9% and/or FBG 120-180. Diabetes High Risk: HgA1c >/= 8% and/or FBG >180 - For Obesity/Overweight Obesity/Overweight Risk Guidelines: Obesity Low Risk: BMI <25.0. Obesity Moderate Risk: BMI 25-29.9. Obesity High Risk: BMI >/= 30.0 - For Hypertension Hypertension Risk Guidelines: Hypertension Low Risk: Systolic <120 and Diastolic <80. Hypertension Moderate Risk: Systolic 120-139 and Diastolic 80-89. Hypertension High Risk: Systolic >/= 140 and Diastolic >/= 90 - For Sedentary Lifestyle Sedentary Lifestyle Risk Guidelines: Sedentary Lifestyle Low Risk: >/= 1,500 kcal/week. Sedentary Lifestyle Moderate Risk: 700-1,499 kcal/week. Sedentary Lifestyle High Risk: < 700 kcal/week - For Depression Depression Risk Guidelines: Depression Low Risk: Not clinically depressed. Depression Moderate Risk: Mildly depressed. Depression High Risk: Clinically depressed Motivation - Motivation to Participate On a scale of 1 to 10, how prepared are you to commit to attending program?: 10 What do you see as barriers to successfully being able to complete the program?: none What do you see as the benefits of succesfully completing the program? In other words, what do you hope to get out of participating in the program?: better fitness, more energy Are there issues you are dealing with that will interfere with completing the program?: none Do you have a spouse or signficant other, family or friends who will help support you to complete the program?: yes
--- NOTE | 2017-11-17 13:11 | CR.HP_ITS ---
CR - History & Physical - General Arrival date:: 11/17/17 Arrival time:: 13:01 Date of Referral:: 11/08/17 Date of CR Evaluation:: 11/17/17 Referring Physician: Dr. Antonio Dacosta Primary Diagnosis: I21.4 NSTEMI, I51.81 Takotsubo syndrome 09/23/2017 - History of Present Cardiac Event Onset Date: Enter Onset Date of cardiac illnesses in Comment field below Current stable Angina Pectoris:: Yes Acute Myocardial Infarction within 12 months:: Yes - Medications Home Medications: Ambulatory Orders Medication Instructions Recorded Aspirin [Adult Low Dose Aspirin EC] 81 mg PO DAILY 02/22/16 Levothyroxine [Synthroid] 25 mcg PO DAILY 09/15/17 Atorvastatin Calcium [Lipitor] 40 mg PO QHS #90 tab 09/19/17 Carvedilol [Coreg (Beta Maykel)] 3.125 mg PO BID #180 tab 09/19/17 Clopidogrel Bisulfate [Plavix] 75 mg PO DAILY #90 tab 09/19/17 Furosemide [Lasix] 40 mg PO DAILY #30 tab 09/19/17 Lisinopril [Zestril] 2.5 mg PO DAILY #90 tab 09/19/17 - Allergies Allergies/Adverse Reactions: Allergies codeine Allergy (Verified 09/15/17 21:04) Other oxycodone HCl [From OxyContin] Allergy (Verified 09/15/17 21:04) Other - Sleep Disorder Evaluation Hx of Sleep Apnea: No Do you snore loudly (louder than talking or can be heard through closed doors)? : No Do you often feel tired/ fatigued/ sleepy during daytime?: No Has anyone observed you stop breathing during sleep?: No History of Hypertension (for STOP score): Yes STOP Results: Negative Advanced Directives - Advanced Directives Power of Hand Blocker: Yes Living Will: Yes Advance Directives Information Provided: Yes Advance Directives on File: No DNR Order?:: Yes Past Medical History - Past Medical Illness Medical History: Past Medical History (Last Reviewed 09/11/17 @ 15:48 by Lolita Woodson) Other chest pain (Chronic) R07.89 Abnormal stress test (Chronic) R94.39 Hypertension (Chronic) I10 Hyperlipidemia (Chronic) E78.5 Other half-way (current) drug therapy (Chronic) Z79.899 CAD (coronary artery disease) (Chronic) I25.10 - Past Surgical History Surgical History: appendectomy, total knee arthroplasty, - - section. 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 Left click = Reports ([place]) Review of Present Symptoms: Reports: Angina, Appetite - Normal, Sleep - Normal. Denies: Shortness of Breath at Rest, Shortness of Breath with Exertion, PVD, Operative Discomfort, Wound Healing, Dizziness/Lightheadedness, Fatigue, Heart Arrhythmia/Irregularities, Appetite - Special Diet, Sexual Changes - Pain Is Patient Pain Free?: No Pain Location: other - shoulder Pain Level: 12/22 Risk Factor Assessment - Chief Complaint Chief Complaint: NSTEMI, Takotsubo syndrome - Vital Signs Pulse Ox: 98 Blood Pressure: 116/64 - Pulse Pulse Rate: 50 Pulse Rhythm: Regular - Hypertension Blood Pressure Sitting - Left Arm: 116/64 - Stress Stress: Long-standing - Diabetes Nutrition Referral for Diabetes: No - Obesity Height: 1.63 m Weight:: 74.389 kg Weight in Pounds: 164.0 lbs Weight Source: Standing Scale Body Mass Index (BMI): 28.1 Nutritional Referral for Obesity: No - Physical Inactivity Physical Inactivity: Reg Exercise 30 min/day, Physically demanding job, Recreational activity, None - Risk Stratification Risk Guidelines: Moderate Risk: Risk Factor for Smoking, Risk Factor for Dyslipidemia, Risk Factor for Diabetes, Risk Factor for Obesity, Risk Factor for Hypertension, Risk Factor for Sedentary Lifestyle, Risk Factor for Depression - For Smoking Smoking Risk Guidelines: Smoking Low Risk: None or quit greater than 6 months ago. Smoking Moderate Risk: Smoker or quit 6 months or less ago. Smoking High Risk: Smoker - For Dyslipidemia Dyslipidemia Risk Guidelines: Low Risk: Moderate Risk: High Risk: 15-25% fat 25.1-29% fat >/= 30% fat. <7% sat fat 7-9% sat fat >9% sat fat. <150 mg chol 150-299 mg chol >/= 300 mg chol. LDL <100 LDL 100-129 LDL >/= 130. Chol/HDL ratio <5.0 Chol/HDL ratio 5.0-6.0 Chol/HDL ratio >6.0. Triglycerides <100 Triglycerides 100-149 Triglycerides >/= 150 - For Diabetes Mellitus Diabetes Risk Guidelines: Diabetes Low Risk: HgA1c <6.5% and/or FBG <120. Diabetes Moderate Risk: HgA1c 6.6-7.9% and/or FBG 120-180. Diabetes High Risk: HgA1c >/= 8% and/or FBG >180 - For Obesity/Overweight Obesity/Overweight Risk Guidelines: Obesity Low Risk: BMI <25.0. Obesity Moderate Risk: BMI 25-29.9. Obesity High Risk: BMI >/= 30.0 - For Hypertension Hypertension Risk Guidelines: Hypertension Low Risk: Systolic <120 and Diastolic <80. Hypertension Moderate Risk: Systolic 120-139 and Diastolic 80-89. Hypertension High Risk: Systolic >/= 140 and Diastolic >/= 90 - For Sedentary Lifestyle Sedentary Lifestyle Risk Guidelines: Sedentary Lifestyle Low Risk: >/= 1 ,500 kcal/week. Sedentary Lifestyle Moderate Risk: 700-1,499 kcal/week. Sedentary Lifestyle High Risk: < 700 kcal/week - For Depression Depression Risk Guidelines: Depression Low Risk: Not clinically depressed. Depression Moderate Risk: Mildly depressed. Depression High Risk: Clinically depressed Motivation - Motivation to Participate On a scale of 1 to 10, how prepared are you to commit to attending program?: 10 What do you see as barriers to successfully being able to complete the program? : none What do you see as the benefits of succesfully completing the program? In other words, what do you hope to get out of participating in the program?: better fitness, more energy Are there issues you are dealing with that will interfere with completing the program?: none Do you have a spouse or signficant other, family or friends who will help support you to complete the program?: yes
[2017-11-17 13:49] VITALS: BP 116/64; PULSE 50; O2SAT 98; BMI 28.1
--- NOTE | 2017-11-17 13:59 | CR.ITP_ITS ---
General Information - General Information Admitting Diagnosis: I21.4 NSTEMI, I51.81 Takotsubo syndrome - Education/Goals Barriers to Learning: None Individual Counseling: Initial Assessment: Abnormal Cholesterol Levels, High Blood Pressure Cardiac Rehabilitation Goals: 1. Maintain the individual as the primary focus of care. 2. To improve the patient's quality of life. 3. Identification of cardiac risk factors and provide cardiac risk factor management. 4. Enhance the psychosocial status of the patient. 5. Reconditioning enough to allow the patient to resume customary activities. 6. Control symptoms of cardiac disease Scale for measuring improvement of personal goals: Enter appropriate number in Comments. 2 = Unchanged. 3 = Slightly Better. 4 = Moderate Improvement. 5 = Met my Goal Personal Goals: Initial Assessment: Improve energy level, Improve knowledge of cardiac disease, Improve muscle strength and endurance Exercise - Initial Assessment - Visit Date of Eval: 11/17/17 - Initial Eval - Stages of Change Stages of Change:: Contemplate - Exercise Prescription Mode:: Treadmill, Biodyne, Rower, Airdyne, NuStep, Arm Ergometer Angina with exercise?: No Target Heart Rate:: 100-108 - Hypertension Do any of the following apply?: Yes Resting Blood Pressure:: 116/60 - Intervention Home Exercise/Activity Goal:: Sitting Time <3 hrs/day - Education Goals:: Warm-up, RPE NIRAV Scale, S/S, Safe Exercise, Self-Monitoring - Exercise Program Goals Exercise Program Goals: Aerobic Activity >30 min, B/P <130/80 Nutrition - Initial Assessment - Program Goals Nutrition Program Goals: LDL <70. Total Cholesterol <200. HDL >45. Triglycerides <150. HgbA1C <7%. BMI <25 - Visit Date of Assessment:: 11/17/17 - Stages of Change Stages of Change:: Contemplate - Diabetes Diabetes:: No - Weight Management Height: 1.63 m Weight:: 74.389 kg Total Score:: 3 - Intervention Referral to dietitian:: No Referral to Diabetic Clinic:: No Will attend diet classes:: Yes - Education Gave educational materials for:: Signs & symptoms of hypoglycemia, Signs & symptoms of hyperglycemia, Relate diabetes to coronary artery disease, Healthy eating Tobacco - Initial Assessment - Program Goals Tobacco Program Goals: Complete smoking cessation. Attend education classes. Improve Knowledge Test score - Stage of Change Stages of Change:: Contemplate - Learning Barriers Learning Barriers: Ready to Learn Total Score:: 18 - Family Support Do you have family support?: Yes - Tobacco Use Tobacco Use: Non-smoker Do you use smokeless tobacco?: No - Intervention Smoking Cessation Referral:: No Individual Education/Counseling:: No Education Schedule Given:: Yes - Education Gave educational material for:: Tobacco triggers, Coronary artery disease, Risk factors, Sexuality, Medical compliance, Cardiac A&P, Angina signs & symptoms Psychosocial - Initial Assess - Target Goals Target Goals: Assess presence or absence of depression. Using a valid screening tool, maximizes coping skills. Positive support system - Stages of Change Stages of Change:: Contemplate - Psychosocial Test Tool Used:: HANDS Depression Questionnaire Total Mood Screening Score:: 3 Self-Efficacy Score:: 9 - Intervention PS - Interventions: Yes Attend Stress Management Classes, Yes Uses Stress Management Skills, No Referral to Mental Health, No Referral to [facility] Case Management, No Referral to Physician - Education Gave educational materials for:: Coping techniques, Signs & symptoms of depression, Stress management, Relaxation techniques - Assistive Devices Assistive Devices:: None Fall Risk Assessed:: Yes Patient Health Questionnaire Initial Assessment 1. Little interest or pleasure in doing things: Several days 2. Feeling down, depressed, or hopeless: Not at all 3. Trouble falling or staying asleep, or sleeping too much: Not at all 4. Feeling tired or having little energy: More than half the days 5. Poor appetite or overeating: Not at all 6. Feeling bad about yourself -- or that you are a failure or have let yourself or your family down: Not at all 7. Trouble concentrating on things, such as reading the newspaper or watching television: Not at all 8. Moving or speaking so slowly that other people could have noticed. Or the opposite - being so fidgety or restless that you have been moving around a lot more than usual: Not at all 9. Thoughts that you would be better off , or of hurting yourself in some way: Not at all How difficult have these problems made it for you to do your work, take care of things at home, or get along with other people?: Not difficult at all Total Score: 3 ERIC-Q SV Test - Statements CAD is a disease of the arteries in the heart: True Examples of risk factors for heart disease: True Angina is chest pain or discomfort: True The benefits of resistance training include: True Eating more meat and dairy products: False Anti-platelet medications such as aspirin are important: True The only effective way to manage stress: False An exercise warm-up slowly increases heart rate: True Prepared, processed foods usually have high sodium: True Depression is common after a heart attack: True The statin medications lower cholesterol: True To control blood pressure, lower the amount of sodium: True If someone gets chest discomfort during walking: False Transfats are partially hydrogenated vegetable oils: True Sleep apnea that is not treated increases the risk: I Don't Know To control cholesterol, one should become a vegetarian: False Someone knows if he/she is exercising at the right level: True Diabetes cannot be prevented with exercise & health eating: False Stress is a large risk for heart attack: True A diet that can help lower blood pressure is rich in: True - Total Score Total Correct Responses: 18 Self-Efficacy Initial Assessment We would like to know how confident you are in doing certain activities. Please select your confidence level for:: Select your confidence level for the following using the scale 1-10 where 1 is not at all confident and 10 is totally confident. Your score is the average of all 6 responses. Fatigue: How confident are you that you can keep the fatigue caused by your disease from interfering with the things you want to do? Select Number: 10 Physical Discomfort or Pain: How confident are you that you can keep the physical discomfort or pain of your disease from interfering with the things you want to do? Select Number: 10 Emotional Distress: How confident are you that you can keep the emotional distress caused by your disease from interfering with the things you want to do? Select Number: 8 Other Symptoms or Health Problems: How confident are you that you can keep other symptoms or health problems from interfering with the things you want to do? Select Number: 9 Different Tasks and Activities: How confident are you that you can do the different tasks and activities needed to manage your health condition so as to reduce your need to see a doctor? Select Number: 9 Medication: How confident are you that you can do things other than just taking medication to reduce how much your illness affects your everyday life? Select Number: 9 Total Score:: 9 Nutrition Survey - Nutrition Survey Instructions Scoring Instructions: Scoring is as follows: Yes = 1 points. No = 0 point. Patient score that is >/=12 is considered to be at potential nutritional risk and could benefit from a referral to a registered dietitian. - Nutrition Survey Initial Have you lost >10 lbs over the past 2 months without trying?: No Are you following a special diet at home for diabetes, low fat, or low salt?: Yes Are you interested in meeting with a dietitian for help understanding your diet? : No Do you eat less than 3 meals a day?: Yes Do you eat fatty meats (roland, sausage, ribs, etc), fried foods, desserts, large amounts of salad dressings, margarine, butter, or cheese most days?: No Do you have food allergies? [Enter types in comment field]: Yes Do you eat in restaurants more than 3 times a week?: No Do you season food with salt, seasoning salt, or garlic salt?: No Do you used canned, boxed, frozen meals, or soups, seasoning packets?: No Total Score:: 3
[2017-11-17 14:06] VITALS: BP 116/60
== END ==
PROVIDERS: Family Provider Family Medicine; PCP Family Medicine; Visit Provider Internal Medicine Cardiovascular Disease
DX: I25.2 Old myocardial infarction (principal); I51.81 Takotsubo syndrome; I10 Essential (primary) hypertension; R94.39 Abnormal result of other cardiovascular function study; E78.5 Hyperlipidemia, unspecified; I25.10 Atherosclerotic heart disease of native coronary artery without angina pectoris; Z79.82 Long term (current) use of aspirin; Z79.02 Long term (current) use of antithrombotics/antiplatelets; Z79.899 Other long term (current) drug therapy

== ENCOUNTER → 2017-11-30 10:57 | Outpatient (CLI) | payer MEDICARE, SELFPAY ==
[2017-11-30 11:47] LABS: Hematocrit 35.1 % (37-47); Hemoglobin 11.4 g/dl (12.0-15.0); Mean Corp Hgb Conc 32.5 g/gl (32-36); Mean Corpuscular Hgb 27.9 pg (27.0-32.0); Mean Corpuscular Volume 85.8 fL (81-99); Mean Platelet Vol. 10.9 fl (6.2-12.0); Platelet Count 191 K/mm3 (150-450); RBC Distribution Width CV 14.6 % (11.6-14.6); RBC Distribution Width SD 44.5 fl (35.1-43.9); Red Blood Count 4.09 M/mm3 (4.2-5.4); Scan Indicated on CBC? Y/N NO; White Blood Count 5.5 K/mm3 (4.4-11.0)
[2017-11-30 12:20] LABS: T4 Total, Thyroxin 9.2 ug/dL (4.8-13.9); Thyroid Stim Hormone (TSH) 3.04 uIU/mL (0.358-3.74)
== END ==
PROVIDERS: Nurse Practitioner Family; Family Provider Family Medicine; PCP Family Medicine; Visit Provider Internal Medicine Cardiovascular Disease
DX: I50.21 Acute systolic (congestive) heart failure (principal); I25.2 Old myocardial infarction; I10 Essential (primary) hypertension; E03.9 Hypothyroidism, unspecified; R53.83 Other fatigue
CPT/HCPCS: 36415; 84436; 84443; 85027

== ENCOUNTER 2017-12-11 15:15 | Outpatient (RCR) | payer MEDICARE, SELFPAY ==
--- NOTE | 2017-12-06 07:05 | PCM.CR.ITP ---
Exercise - 30-day Assessment - Visit Date of Eval: 12/06/17 Session #:: 7 - Stages of Change Stages of Change:: Action - Exercise Prescription Mode:: Treadmill - just started only doing 1.0 due to hip and knee issues., NuStep Frequency (x/week): 3 Duration:: 30 METs - Progression: 0.5-1 MET as tolerated: 3 Target Heart Rate:: 100-108 Max HR 101 - Hypertension Resting Blood Pressure:: 122/42 Peak Exercise Blood Pressure:: 122/42 Medication Changes:: No - Intervention Home Exercise/Activity Goal:: Sitting Time <3 hrs/day - Education Goals:: Warm-up, RPE NIRAV Scale, S/S, Safe Exercise, Self-Monitoring - Exercise Program Goals Exercise Program Goals: Aerobic Activity >30 min Nutrition - 30-Day Assessment - Program Goals Nutrition Program Goals: LDL <70. Total Cholesterol <200. HDL >45. Triglycerides <150. HgbA1C <7%. BMI <25 - Visit Date of Eval: 12/06/17 - Stages of Change Stages of Change:: Action - Lipids Has the patient seen the dietitian?: No - Diabetes Diabetes:: No - Weight Management Weight:: 154 lb - Intervention Referral to dietitian:: No Referral to Diabetic Clinic:: No Will attend diet classes:: Yes - Education Attended class for:: Healthy eating Tobacco - 30-Day Assessment - Program Goals Tobacco Program Goals: Complete smoking cessation. Attend education classes. Improve Knowledge Test score - Stage of Change Stages of Change:: Action - Learning Barriers Learning Barriers: Participates in education - Family Support Do you have family support?: Yes - Tobacco Use Tobacco Use: Non-smoker Do you use smokeless tobacco?: No - Intervention Smoking Cessation Referral:: No Individual Education/Counseling:: No Education Schedule Given:: Yes - Education Attended class for:: Coronary artery disease, Risk factors, Sexuality, Medical compliance, Cardiac A&P, Angina signs & symptoms Psychosocial - 30-Day Assess - Target Goals Target Goals: Assess presence or absence of depression. Using a valid screening tool, maximizes coping skills. Positive support system - Stages of Change Stages of Change:: Action - Psychosocial Test Tool Used:: HANDS Depression Questionnaire - Intervention PS - Interventions: Yes Attend Stress Management Classes, No Referral to Mental Health, No Referral to [facility] Case Management, No Referral to Physician, No Uses Stress Management Skills - Education Attended classes for:: Coping techniques, Signs & symptoms of depression, Stress management, Relaxation techniques - Patient/Program Goal Preventative Medication(s):: Aspirin, Clopidogrel, Statin/lipid - Assistive Devices Assistive Devices:: None Patient Health Questionnaire 30-Day Re-eval Assessment 1. Little interest or pleasure in doing things: Several days 2. Feeling down, depressed, or hopeless: Not at all 3. Trouble falling or staying asleep, or sleeping too much: Not at all 4. Feeling tired or having little energy: Several days 5. Poor appetite or overeating: Not at all 6. Feeling bad about yourself -- or that you are a failure or have let yourself or your family down: Not at all 7. Trouble concentrating on things, such as reading the newspaper or watching television: Not at all 8. Moving or speaking so slowly that other people could have noticed. Or the opposite - being so fidgety or restless that you have been moving around a lot more than usual: Not at all 9. Thoughts that you would be better off , or of hurting yourself in some way: Not at all How difficult have these problems made it for you to do your work, take care of things at home, or get along with other people?: Not difficult at all Total Score: 2 Self-Efficacy 30-Day Re-eval Assessment We would like to know how confident you are in doing certain activities. Please select your confidence level for:: Select your confidence level for the following using the scale 1-10 where 1 is not at all confident and 10 is totally confident. Your score is the average of all 6 responses. Fatigue: How confident are you that you can keep the fatigue caused by your disease from interfering with the things you want to do? Select Number: 10 Physical Discomfort or Pain: How confident are you that you can keep the physical discomfort or pain of your disease from interfering with the things you want to do? Select Number: 10 Emotional Distress: How confident are you that you can keep the emotional distress caused by your disease from interfering with the things you want to do? Select Number: 9 Other Symptoms or Health Problems: How confident are you that you can keep other symptoms or health problems from interfering with the things you want to do? Select Number: 9 Different Tasks and Activities: How confident are you that you can do the different tasks and activities needed to manage your health condition so as to reduce your need to see a doctor? Select Number: 10 Medication: How confident are you that you can do things other than just taking medication to reduce how much your illness affects your everyday life? Select Number: 10 Total Score:: 9
[2017-12-06 07:09] VITALS: BP 122/42
== END 2017-12-12 23:59 ==
LOC: CR 15:15
PROVIDERS: Family Provider Family Medicine; PCP Family Medicine; Visit Provider Internal Medicine Cardiovascular Disease
DX: I21.4 Non-ST elevation (NSTEMI) myocardial infarction (principal); I51.81 Takotsubo syndrome
CPT/HCPCS: 93798

== ENCOUNTER → 2017-12-12 15:24 | Outpatient (CLI) | payer MEDICARE, SELFPAY ==
--- NOTE | 2017-12-12 15:33 | MRI_ITS ---
STUDY: MRI BRAIN WITHOUT CONTRAST REASON FOR EXAM: Female, 77 years old. Dizziness and vertigo posttraumatic TECHNIQUE: Standardized multiplanar fat and water weighted pulse sequences were obtained. COMPARISON: None. FINDINGS: Normal size of the ventricles and extra-axial spaces for the patient's age. Mild periventricular white matter ischemic changes without evidence for acute infarct.. Normal bilateral basal ganglia. Normal thalami. There is no extra-axial fluid accumulation. Normal flow voids within the major intracranial circulation suggesting patency by spin echo criteria. Empty sella deformity of uncertain significance. Normal, infundibular stalk, optic chiasm and hypothalamus. Normal tectal plate and pineal gland. Normal midbrain, cari and medulla. Normal cerebellum. Normal basal cisterns. Normal bilateral temporal bones. Normal bilateral internal auditory canals. No demonstrated orbital abnormality, within the constraints of a routine brain study. Minor mucosal thickening of the ethmoid air cells and right sphenoid sinus. Normal calvarium and skull base. Normal visualized soft tissue structures. Normal visualized upper cervical spine. MRI/Brain without Contrast IMPRESSION: Mild periventricular white matter ischemic changes without evidence for acute infarct. Empty sella deformity of uncertain clinical significance. Electronically Signed: Jewel Valera MD at 18:31 EDT , Service support ,
== END ==
PROVIDERS: Family Provider Family Medicine; PCP Family Medicine; Visit Provider Psychiatry & Neurology Neurology
DX: R42 Dizziness and giddiness (principal)
CPT/HCPCS: 70551

== ENCOUNTER → 2017-12-18 14:37 | Outpatient (CLI) | payer MEDICARE, SELFPAY | PROVIDERS: Family Provider Family Medicine; PCP Family Medicine; Visit Provider Internal Medicine Cardiovascular Disease | DX: I11.0 Hypertensive heart disease with heart failure (principal); I50.21 Acute systolic (congestive) heart failure; I21.4 Non-ST elevation (NSTEMI) myocardial infarction; I25.10 Atherosclerotic heart disease of native coronary artery without angina pectoris; I47.1 Supraventricular tachycardia | CPT/HCPCS: 93225; 93226 ==

== ENCOUNTER 2018-01-03 17:00 | Outpatient (RCR) | payer MEDICARE, SELFPAY ==
--- NOTE | 2017-11-08 16:30 | HP.PTEVAL_ITS ---
Patient's Visit Information ANGELI NICHOLAS is a 77 year old F referred to Physical Therapy by Brian Martinez with a diagnosis of L shoulder OA, Sprain of L shoulder,. Date of Evaluation: 11/08/17 Physical Therapist: Eileen Zacarias - Visit Plan Frequency: 2x /Week Duration: 6 Weeks Plan: 2X/ week for 6 weeks for L shoulder PROM/ AROM, postural exercises, scapular strength, RC strength with HEP and modalities PRN - Subjective Subjective: Pt reports that her L shoulder is giving her trouble and especially when going to put her seatbelt on. Dr thinks that the pt pulled something. She sees the Dr again in 3 monnths. SHe has no N&T. Sometimes she gets cramps in her L leg (has had a previous knee replacement). She tosses and turns at night and used to sleep on her L shoulder but now it hurts. She feels that the L shoulder is weaker. Pt reports that she did have a heart attack September 15, 2017 and she passed out and woke up and pushed her button and then she had a second heart attack in the hospital. She reports that she has not gotten to rehab rehab yet. She was in the hospital for 5 days. She had broken heart syndrome and has had some cousoling. She reports that her wrist pain of L hand comes and goes. - Pain L shoulder pain Pain Intensity (Out of 10): 8 - Objective 135 R shld flexion, 95 degrees R shld abd, R shld T12, R ER WFL. 100 L shld flexion and L shld abd 82 degrees, L shld T6, L ER WFL. L shld MMT: 4/5 shld flex, 4/5 shld abd, 4-/5 ER, 4-/5 IR, bicep 4/5. R shld MMT: 4/5 all 4 planes and bicep 4/5. Rounded shoulders. + HK test for pain. Palpation: tender under the L acromion - Goals Goal 1:: I HEP Goal Time Frame: 4-6 Weeks Goal 2:: Decrease L shoulder pain to 4/5 with ADL's Goal Time Frame: 4-6 Weeks Goal 3:: Pt to be able to reach and put on her seatbelt without pain Goal Time Frame: 4-6 Weeks - Rehabilitation Potential Rehabilitation Potential: Good - Anticipated Interventions Patient/Client Instruction: Educate patient on: Condition, Plan of Care For the Purpose of:: To decrease pain, To decrease swelling/inflammation, To increase ROM, To improve nutrient delivery to tissue, To improve muscle performance and motor function, To improve ability to perform ADL's, To increase tolerance to activity/condition/position, To improve health of tissue, To decrease soft tissue restriction, To increase flexibility/ROM Therapeutic Exercise to Include: Strength training, Postural training, Flexibilty training, Passive ROM, Active ROM, Scapular Strength/Stabilization For the Purpose of:: To decrease pain, To increase ROM, To improve nutrient delivery to tissue, To improve muscle performance and motor function, To improve ability to perform ADL's, To increase tolerance to activity/condition/ position, To improve performance and independence with ADL's, To improve health of tissue, To decrease soft tissue restriction, To increase flexibility/ROM Manual Therapy Techniques to Include: Mobilization, Passive ROM, Soft tissue mobilization For the Purpose of:: To decrease pain, To decrease swelling/inflammation, To increase ROM, To improve nutrient delivery to tissue, To improve muscle performance and motor function, To improve health of tissue, To decrease soft tissue restriction Cryotherapy (ice pack, ice massage): Yes Ultrasound (thermal/non thermal): Yes For the Purpose of:: To decrease pain, To decrease swelling/inflammation, To increase ROM, To improve health of tissue, To decrease soft tissue restriction Thank you for the opportunity to evaluate your patient. For Medicare and Medicare HMO plans, please review the plan of care and approve it. It will need to be FAXED BACK to us at [phone] for Medicare purposes. Please let me know if there are questions or concerns regarding this plan of care. Physician Signature: Date:
--- NOTE | 2017-11-10 08:59 | HP.PTEVAL2_ITS ---
Patient's Visit Information ANGELI NICHOLAS is a 77 year old F referred to Physical Therapy by Brian Martinez with a diagnosis of Difficulty walking. Date of Evaluation: 11/10/17 Physical Therapist: Eileen Zacarias - Visit Plan Frequency: 2x /Week Duration: 6 Weeks Plan: 2X/ week for 6 weeks for KNEE extension AROM on the L, GASTOC and HS and HIP flexor stretching with manual foam rolling, gait training with increase heel strike and knee extension at heel strike, hip strengthening, balance exercises with HEP - Subjective Subjective: When she is walking she feels like she is going to fall straight down to the floor. She feels that she gets stiff the longer she sits. If she has been in the hot tub she can go up stairs faster. She has railing on her 11 steps and uses it. The L leg feels worse than the R and the L knee is stiff and she takes one step at a time. She does have L knee pain in the middle of the knee. She does not remember if she had an x-ray of her L knee. She is able to get up out of a chair without the use of her arms. Getting down into the car is hard on the L knee. The L is a knee replacement and also has 18 screws in her L lower leg from a [place] accident. She generally does not have pain sitting but more when she has been off it for awhile and goes to walk. Pt has a cardiac appt soon she believes. Cortizone shots did not help in the knee. - Pain L knee pain Intensity: 0 Pain Intensity Range: 4 - Objective Objective: R knee _1 degree to 123 degree flexion DF 10 degrees. L knee -5 degrees to 90 degrees flexion DF 5 degrees. Tight gastroc complex B and tight HS B, VERY tight hip flex/quads B. LE MMT: B knee flex 4/5, B knee ext 4 /5, B hip flex 4-/5, B hip abd 4-/5, able to 1/2 normal ROM bridge, Has trouble toe raising due to ROM and incrase LOB. Gait: some veering, walks with bent knees, especially the L knee, catches L toe. FGA: 15 - Balance Scores Functional Gait Assessment Score: 15 % Disability: 50.0000 - Goals Goal 1:: I HEP Goal Time Frame: 4-6 Weeks Goal 2:: Be able to walk with knee ext with heel strike Goal Time Frame: 4-6 Weeks Goal 3:: Decrease L knee pain to 2/10 or less with walking Goal Time Frame: 4-6 Weeks Goal 4:: Increase L knee AROM to -2 degrees to 120 degrees knee flexion Goal Time Frame: 4-6 Weeks - Rehabilitation Potential Rehabilitation Potential: Good - Anticipated Interventions Patient/Client Instruction: Educate patient on: Plan of Care For the Purpose of:: To decrease pain, To increase ROM, To improve nutrient delivery to tissue, To improve muscle performance and motor function, To improve ability to perform ADL's, To increase tolerance to activity/condition/ position, To improve performance and independence with ADL's, To improve ability of physical actions for home/community/work/leisure, To improve gait and locomotor functions, To improve health of tissue, To decrease soft tissue restriction, To increase flexibility/ROM, To improve balance, To improve safety with gait Therapeutic Exercise to Include: Strength training, Flexibilty training, Gait and locomotor training, Neuromotor development, Passive ROM, Active ROM For the Purpose of:: To decrease pain, To decrease swelling/inflammation, To increase ROM, To improve nutrient delivery to tissue, To improve muscle performance and motor function, To improve ability to perform ADL's, To increase tolerance to activity/condition/position, To improve performance and independence with ADL's, To improve gait and locomotor functions, To improve health of tissue, To decrease soft tissue restriction, To increase flexibility/ ROM, To improve balance, To improve safety with gait Functional Training to Include: Gait training For the Purpose of:: To improve gait and locomotor functions, To improve safety with gait Manual Therapy Techniques to Include: Passive ROM, Soft tissue mobilization For the Purpose of:: To increase ROM Thank you for the opportunity to evaluate your patient. For Medicare and Medicare HMO plans, please review the plan of care and approve it. It will need to be FAXED BACK to us at [phone] for Medicare purposes. Please let me know if there are questions or concerns regarding this plan of care. Physician Signature: Date:
--- NOTE | 2018-06-15 08:40 | HP.PT.NRP ---
HP - Discharge Summary (1) - Patient Information ANGELI NICHOLAS was seen in my office for initial evaluation on 11/08/17. The following Plan of Care was established for this patient: Initial Frequency: 2x /Week Initial Duration: 6 Weeks - Anticipated Interventions Patient/Client Instruction: Educate patient on: Condition, Plan of Care For the Purpose of:: To decrease pain, To decrease swelling/inflammation, To increase ROM, To improve nutrient delivery to tissue, To improve muscle performance and motor function, To improve ability to perform ADL's, To increase tolerance to activity/condition/position, To improve health of tissue, To decrease soft tissue restriction, To increase flexibility/ROM Therapeutic Exercise to Include: Strength training, Postural training, Flexibilty training, Passive ROM, Active ROM, Scapular Strength/Stabilization For the Purpose of:: To decrease pain, To increase ROM, To improve nutrient delivery to tissue, To improve muscle performance and motor function, To improve ability to perform ADL's, To increase tolerance to activity/condition/position, To improve performance and independence with ADL's, To improve health of tissue, To decrease soft tissue restriction, To increase flexibility/ROM Manual Therapy Techniques to Include: Mobilization, Passive ROM, Soft tissue mobilization For the Purpose of:: To decrease pain, To decrease swelling/inflammation, To increase ROM, To improve nutrient delivery to tissue, To improve muscle performance and motor function, To improve health of tissue, To decrease soft tissue restriction Cryotherapy (ice pack, ice massage): Yes Ultrasound (thermal/non thermal): Yes For the Purpose of:: To decrease pain, To decrease swelling/inflammation, To increase ROM, To improve health of tissue, To decrease soft tissue restriction This patient was last seen in our office 01/03/18. Pertinent comments regarding their Physical therapy will appear below: [facility] PT At this point I will be discontinuing this patient from physical therapy. I would be happy to see this patient again in the future if found appropriate by the physician. Thank you! Eileen Zacarias, MPT
== END 2018-01-03 19:00 | disposition home or self-care (01) ==
LOC: PT 17:00
PROVIDERS: Family Provider Family Medicine; PCP Family Medicine; Visit Provider Orthopaedic Surgery
DX: S43.402D Unspecified sprain of left shoulder joint, subsequent encounter (principal); S63.502D Unspecified sprain of left wrist, subsequent encounter; R26.2 Difficulty in walking, not elsewhere classified; R42 Dizziness and giddiness
CPT/HCPCS: 70551; 97035; 97110; 97140; 97162; 97530

== ENCOUNTER 2018-01-12 15:15 | Outpatient (RCR) | payer MEDICARE, SELFPAY ==
[2017-12-13 01:20] VITALS: BP 122/42
--- NOTE | 2018-01-05 08:44 | CR.ITP_ITS ---
General Information - General Information Admitting Diagnosis: NSTEMI, Takosubo cardiomyopathy - Education/Goals Cardiac Rehabilitation Goals: 1. Maintain the individual as the primary focus of care. 2. To improve the patient's quality of life. 3. Identification of cardiac risk factors and provide cardiac risk factor management. 4. Enhance the psychosocial status of the patient. 5. Reconditioning enough to allow the patient to resume customary activities. 6. Control symptoms of cardiac disease Scale for measuring improvement of personal goals: Enter appropriate number in Comments. 2 = Unchanged. 3 = Slightly Better. 4 = Moderate Improvement. 5 = Met my Goal Exercise - 60-Day Assessment - Visit Date of Eval: 01/05/18 Session #:: 20 - Stages of Change Stages of Change:: Action - Exercise Prescription Mode:: NuStep Frequency (x/week): 3 Duration:: 30 METs: 4 Target Heart Rate:: 100-108 Max HR 100 - Hypertension Resting Blood Pressure:: 130/72 Peak Exercise Blood Pressure:: 142/84 Medication Changes:: Yes - decreased coreg to 12.5 mg BID - Intervention Home Exercise/Activity Goal:: Sitting Time <3 hrs/day - Education Goals:: Warm-up, RPE NIRAV Scale, S/S, Safe Exercise, Self-Monitoring - Exercise Program Goals Exercise Program Goals: Aerobic Activity >30 min, B/P <130/80 Nutrition - 60-Day Assessment - Program Goals Nutrition Program Goals: LDL <70. Total Cholesterol <200. HDL >45. Triglycerides <150. HgbA1C <7%. BMI <25 - Visit Date of Eval: 01/05/18 - Stages of Change Stages of Change:: Action - Lipids Has the patient seen the dietitian?: No - Diabetes Diabetes:: No - Weight Management Weight:: 70.307 kg - Intervention Referral to dietitian:: No Referral to Diabetic Clinic:: No Will attend diet classes:: Yes - Education Attended class for:: Signs & symptoms of hypoglycemia, Signs & symptoms of hyperglycemia, Relate diabetes to coronary artery disease, Healthy eating Tobacco - Initial Assessment - Program Goals Tobacco Program Goals: Complete smoking cessation. Attend education classes. Improve Knowledge Test score - Learning Barriers Learning Barriers: Ready to Learn Tobacco - 60-Day Assessment - Program Goals Tobacco Program Goals: Complete smoking cessation. Attend education classes. Improve Knowledge Test score - Stage of Change Stages of Change:: Action - Learning Barriers Learning Barriers: Participates in education - Family Support Do you have family support?: Yes - Tobacco Use Tobacco Use: Non-smoker Do you use smokeless tobacco?: No - Intervention Smoking Cessation Referral:: No Individual Education/Counseling:: No Education Schedule Given:: Yes - Education Attended class for:: Tobacco triggers, Coronary artery disease, Risk factors, Sexuality, Medical compliance, Cardiac A&P, Angina signs & symptoms Psychosocial - Initial Assess - Target Goals Target Goals: Assess presence or absence of depression. Using a valid screening tool, maximizes coping skills. Positive support system - Psychosocial Test Tool Used:: HANDS Depression Questionnaire - Assistive Devices Fall Risk Assessed:: Yes Psychosocial - 60-Day Assess - Target Goals Target Goals: Assess presence or absence of depression. Using a valid screening tool, maximizes coping skills. Positive support system - Stages of Change Stages of Change:: Action - Psychosocial Test Tool Used:: HANDS Depression Questionnaire - Intervention PS - Interventions: Yes Attend Stress Management Classes, Yes Uses Stress Management Skills, No Referral to Mental Health, No Referral to [facility] Case Management, No Referral to Physician - Education Attended classes for:: Coping techniques, Signs & symptoms of depression, Stress management, Relaxation techniques - Assistive Devices Assistive Devices:: None Fall Risk Assessed:: Yes Patient Health Questionnaire 60-Day Re-eval Assessment 1. Little interest or pleasure in doing things: Several days 2. Feeling down, depressed, or hopeless: Not at all 3. Trouble falling or staying asleep, or sleeping too much: Not at all 4. Feeling tired or having little energy: Not at all 5. Poor appetite or overeating: Not at all 6. Feeling bad about yourself -- or that you are a failure or have let yourself or your family down: Not at all 7. Trouble concentrating on things, such as reading the newspaper or watching television: Not at all 8. Moving or speaking so slowly that other people could have noticed. Or the opposite - being so fidgety or restless that you have been moving around a lot more than usual: Not at all 9. Thoughts that you would be better off , or of hurting yourself in some way: Not at all How difficult have these problems made it for you to do your work, take care of things at home, or get along with other people?: Not difficult at all Total Score: 1 Self-Efficacy 60-Day Re-eval Assessment We would like to know how confident you are in doing certain activities. Please select your confidence level for:: Select your confidence level for the following using the scale 1-10 where 1 is not at all confident and 10 is totally confident. Your score is the average of all 6 responses. Fatigue: How confident are you that you can keep the fatigue caused by your disease from interfering with the things you want to do? Select Number: 10 Physical Discomfort or Pain: How confident are you that you can keep the physical discomfort or pain of your disease from interfering with the things you want to do? Select Number: 10 Emotional Distress: How confident are you that you can keep the emotional distress caused by your disease from interfering with the things you want to do? Select Number: 10 Other Symptoms or Health Problems: How confident are you that you can keep other symptoms or health problems from interfering with the things you want to do? Select Number: 10 Different Tasks and Activities: How confident are you that you can do the different tasks and activities needed to manage your health condition so as to reduce your need to see a doctor? Select Number: 10 Medication: How confident are you that you can do things other than just taking medication to reduce how much your illness affects your everyday life? Select Number: 10 Total Score:: 10
[2018-01-05 08:45] VITALS: BP 130/72; BP 142/84
== END 2018-01-12 23:59 ==
LOC: CR 15:15
PROVIDERS: Family Provider Family Medicine; PCP Family Medicine; Visit Provider Internal Medicine Cardiovascular Disease
DX: I21.4 Non-ST elevation (NSTEMI) myocardial infarction (principal); I11.0 Hypertensive heart disease with heart failure; I50.21 Acute systolic (congestive) heart failure; I25.10 Atherosclerotic heart disease of native coronary artery without angina pectoris; I47.1 Supraventricular tachycardia
CPT/HCPCS: 93225; 93226; 93798

== ENCOUNTER 2018-01-26 12:22 | Emergency (ER) | payer OTHER, MEDICARE, SELFPAY ==
[2018-01-26 12:23] VITALS: BP 187/78; PULSE 75; RESP 18; TEMP 36.3; O2SAT 98; BMI 28.3
--- NOTE | 2018-01-26 12:44 | CT_ITS ---
STUDY: CT BRAIN WITHOUT CONTRAST REASON FOR EXAM: Female, 77 years old. History of fall. RADIATION DOSAGE (If Supplied By Facility): CTDIvol = ( 44.99 ) mGy, DLP = ( 829.85 ) mGycm TECHNIQUE: Transaxial CT imaging of the brain was performed without administration of intravenous contrast material. Individualized dose optimization techniques were used for this CT. COMPARISON: Comparison is made with prior study dated May 04, 2017. FINDINGS: Normal soft tissue structures. There is hyperostosis frontalis internus. There is mild cerebral atrophy with widening of the extra-axial spaces and ventricular dilatation. There are areas of decreased attenuation within the white matter tracts of the supratentorial brain, consistent with microvascular disease changes. Normal basal ganglia and thalami. Normal brainstem. Normal cerebellum. There is no intracranial hemorrhage. There are no findings of an acute ischemic infarction. Atherosclerotic calcification of the vertebral arteries and cavernous portions of the internal carotid arteries bilaterally. Normal visualized paranasal sinuses. CT/Brain/Head without Contrast IMPRESSION: Chronic involutional changes of the brain. Electronically Signed: Bernard Clemente MD at 14:14 EDT Tel [phone], Service support ,
--- NOTE | 2018-01-26 14:35 | ED.DCSUM_ITS ---
- ER Visit Summary Date of Service: 01/26/18 Chief Complaint: Fall History of Present Illness: The patient is a 77 F who tripped and fell striking her mouth. She is a lip laceration. She denies loss of consciousness. Her teeth feel stable. She denies any other injury. She takes Plavix but no other anticoagulants. Physical Examination: Vital signs reveal blood pressure 187/78, otherwise normal. Patient sitting upright in bed holding an ice pack to her lip. She has abrasions on her nose without bony tenderness. She is a 2 cm laceration of the left upper lip. There is a flap laceration on the inner surface of the left upper lip. Teeth are stable. She is a small chip along the medial aspect of the right maxillary central incisor. Patient states this is old. There is no C -spine tenderness. Heart is regular rate and rhythm. Lung sounds are clear. Extremity examination reveals abrasions on her right third finger without bony tenderness. Neuro exam is normal. Test Results: Head CT shows chronic involutional changes. Emergency Department Course and Treatment: Lip laceration is repaired. A total of 3 cc 1% lidocaine was used locally. Wound is cleansed and irrigated. A total of 9 simple interrupted sutures with 4-0 Vicryl plus is placed. Because of the location and degree of the flap laceration on the inner lip this also did require repair. Patient will be treated with Kory Quintero. Blood pressure at time of discharge is 163/73. Patient was instructed on wound care and advised to follow with her primary care physician. Treatment Plan: [] Disposition: Discharge Impression: 1. Mechanical fall 2. Lip laceration status post suture This note was generated with [email or web address] dictation software. It may contain incorrect words, spelling, and punctuation that were not noted in review of the chart prior to signing ED Disposition - Plan for ED Patient: Disposition: Home or Assisted Living Chief Complaint: Fall Instructions: ED Mechanical Fall, ED Laceration Mouth Prescriptions: Penicillin V Potassium 500 mg PO 4X/DAY #40 tablet Referrals: Vivi Carrion MD [Primary Care Provider] - 1 Week
[2018-01-26 15:08] VITALS: BP 163/73; PULSE 70; RESP 14
[2018-01-26] MEDS: Penicillin Vk 250 MG Tablet 500 MG PO (15:14)
== END 2018-01-26 15:33 | disposition home or self-care (01) ==
PROVIDERS: Emergency Provider Emergency Medicine; Family Provider Family Medicine; PCP Family Medicine
DX: S01.511A Laceration without foreign body of lip, initial encounter (principal); S01.512A Laceration without foreign body of oral cavity, initial encounter; S00.31XA Abrasion of nose, initial encounter; S60.412A Abrasion of right middle finger, initial encounter; W01.0XXA Fall on same level from slipping, tripping and stumbling without subsequent striking against object, initial encounter; Y93.9 Activity, unspecified; Y92.9 Unspecified place or not applicable; I25.10 Atherosclerotic heart disease of native coronary artery without angina pectoris; I25.2 Old myocardial infarction; I11.0 Hypertensive heart disease with heart failure; I50.9 Heart failure, unspecified; Z90.710 Acquired absence of both cervix and uterus; Z79.82 Long term (current) use of aspirin; Z79.899 Other long term (current) drug therapy
CPT/HCPCS: 12011; 70450; 99285

== ENCOUNTER → 2018-01-29 14:12 | Outpatient (CLI) | payer OTHER, MEDICARE, SELFPAY ==
--- NOTE | 2018-01-29 14:15 | RAD_ITS ---
STUDY: X-RAY - RIGHT HAND REASON FOR EXAM: Female, 77 years old. Fall 3 days ago with hand pain TECHNIQUE: 3 view(s) of the hand. COMPARISON: None. FINDINGS: No acute fracture or listhesis. Prominent degenerative change at the first IP joint as well as age-related degenerative change of the remaining PIP and PIP joints. Mild soft tissue swelling. RAD/Hand Min 3 Views IMPRESSION: Age-related degenerative changes without acute fracture. Electronically Signed: Christopher Kay DO at 8:34 EDT Tel , Service support ,
--- NOTE | 2018-01-29 14:15 | RAD_ITS ---
STUDY: X-RAY - RIGHT KNEE REASON FOR EXAM: Female, 77 years old. Fall 3 days ago, right knee pain TECHNIQUE: 4 view(s) of the knee. With weightbearing COMPARISON: None. FINDINGS: Normal visualized distal femur. Normal visualized proximal tibia and fibula. Normal proximal tibiofibular articulation. There is mild degenerative arthrosis of the medial femorotibial compartment. Normal lateral femorotibial compartment. There is mild degenerative arthrosis of the patellofemoral articulation. Mild medial compartment joint space loss. The soft tissue structures are unremarkable. RAD/Knee 4 or More Views IMPRESSION: No acute fracture. Mild degenerative changes. Electronically Signed: Christopher Kay DO at 8:33 EDT Tel , Service support ,
== END ==
PROVIDERS: Family Provider Family Medicine; PCP Family Medicine; Visit Provider Physician Assistant
DX: S60.221A Contusion of right hand, initial encounter (principal); S80.01XA Contusion of right knee, initial encounter
CPT/HCPCS: 73130; 73564

== ENCOUNTER → 2018-02-09 08:03 | Outpatient (CLI) | payer MEDICARE, SELFPAY ==
--- NOTE | 2018-02-09 08:04 | ECHOD_ITS ---
Reason For Study: Dyspnea/SOB Procedure This was a 2D Doppler, Color Flow transthoracic echocardiogram. The exam was of fair technical quality due to diminished acoustic windows. Exam performed in department. Left Ventricle Normal LV size. Segmental dysfunction with preserved ejection fraction (see wall motion). The estimated ejection fraction is 60 %. Mid-Lateral : Hypokinetic. Anterior [place] : Not visualized. Inferior [place] : Not visualized. Lateral [place] : Hypokinetic. Right Ventricle Normal RV size. Normal systolic function. Atria The left atrium is moderately enlarged. Normal right atrium. No doppler evidence for ASD. Mitral Valve There is no mitral annular calcification. Normal mitral valve. Mild-Moderate (1-2+) eccentric mitral valve insufficiency. Tricuspid Valve Normal tricuspid valve. Moderate (2+) eccentric tricuspid valve insufficiency. Right ventricular systolic pressure estimated to be 43 mmHg. Aortic Valve Trisinus/trileaflet aortic valve. Mild focal aortic valve calcification. Mild (1+) aortic valve insufficiency. Pulmonic Valve The pulmonic valve is not well visualized. Mild (1+) pulmonic valve insufficiency. Great Vessels Normal sized aortic root. Calcified aortic root. Pericardium/Pleural Trivial pericardial effusion. There are no echocardiographic indications of cardiac tamponade. MMode/2D Measurements & Calculations LVIDd: 4.9 cm IVSd: 0.91 cm Ao root diam: 2.7 cm LVIDs: 3.0 cm LVPWd: 0.90 cm LA dimension: 4.7 cm RVDd: 3.4 cm FS: 37.4 % LAV(MOD-bp): 67.9 ml LVAd ap4: 21.7 cm2 SV(MOD-sp4): 39.1 ml LAV(MOD-bp) Indexed: 40.7 ml/m2 EDV(MOD-sp4): 61.6 ml LAV(MOD-sp2): 68.3 ml EDV(sp4-el): 62.8 ml LAV(MOD-sp4): 66.7 ml LVAs ap4: 11.8 cm2 ESV(MOD-sp4): 22.5 ml ESV(sp4-el): 22.2 ml EF(MOD-sp4): 63.5 % EF(sp4-el): 64.6 % SV(sp4-el): 40.5 ml LA A4 area: 21.2 cm2 RA A4 area: 17.2 cm2 Doppler Measurements & Calculations MV E max david: 93.3 cm/sec Lat Peak E' David: 6.2 cm/sec Med Peak E' David: 3.4 cm/sec MV A max david: 30.7 cm/sec E/E' lat: 15.1 E/E' med: 27.8 MV E/A: 3.0 Ao V2 max: 161.3 cm/sec AI max david: 357.4 cm/sec LV V1 max: 99.2 cm/sec Ao max P.4 mmHg AI max P.1 mmHg LV V1 max P.9 mmHg Ao V2 mean: 109.4 cm/sec AI dec slope: 126.0 cm/sec2 Ao mean P.3 mmHg AI P1/2t: 830.9 msec Ao V2 VTI: 38.4 cm PA V2 max: 80.9 cm/sec TR max david: 316.4 cm/sec TR max P.1 mmHg Interpretation Summary Segmental dysfunction with preserved ejection fraction (see wall motion). The estimated ejection fraction is 60 %. The left atrium is moderately enlarged. Mild-Moderate (1-2+) eccentric mitral valve insufficiency. Moderate (2+) eccentric tricuspid valve insufficiency. Mild focal aortic valve calcification. Mild (1+) aortic valve insufficiency. Mild (1+) pulmonic valve insufficiency. Calcified aortic root. Trivial pericardial effusion. There are no echocardiographic indications of cardiac tamponade. Right ventricular systolic pressure estimated to be 43 mmHg. Transmitral diastolic flow velocities suggest diastolic dysfunction (pseudonormal pattern). Ordering Physician: Edda Hairston Referring Physician: Vivi Carrion Performed By: Katarina Tuttle RDCS, RVT
== END ==
PROVIDERS: Family Provider Family Medicine; PCP Family Medicine; Referring Provider Nurse Practitioner Family; Visit Provider Nurse Practitioner Family
DX: I51.81 Takotsubo syndrome (principal); I25.2 Old myocardial infarction
CPT/HCPCS: 93306; 93798

== ENCOUNTER 2018-02-09 15:15 | Outpatient (RCR) | payer MEDICARE, SELFPAY ==
[2018-01-13 01:22] VITALS: BP 130/72; BP 142/84
--- NOTE | 2018-02-07 08:30 | CR.ITP_ITS ---
General Information - General Information Admitting Diagnosis: NSTEMI, Takosubo cardiomyopathy - Education/Goals Cardiac Rehabilitation Goals: 1. Maintain the individual as the primary focus of care. 2. To improve the patient's quality of life. 3. Identification of cardiac risk factors and provide cardiac risk factor management. 4. Enhance the psychosocial status of the patient. 5. Reconditioning enough to allow the patient to resume customary activities. 6. Control symptoms of cardiac disease Scale for measuring improvement of personal goals: Enter appropriate number in Comments. 2 = Unchanged. 3 = Slightly Better. 4 = Moderate Improvement. 5 = Met my Goal Exercise - 90-Day Assessment - Visit Date of Eval: 02/07/18 Session #:: 29 - Stages of Change Stages of Change:: Action - Exercise Prescription Mode:: Treadmill, NuStep Frequency (x/week): 3 Duration:: 30 METs: 4.1 Target Heart Rate:: 100-108 Max HR 102 - Hypertension Resting Blood Pressure:: 138/60 Peak Exercise Blood Pressure:: 150/70 - Intervention Home Exercise/Activity Goal:: Sitting Time <3 hrs/day - Education Goals:: Warm-up, RPE NIRAV Scale, S/S, Safe Exercise, Self-Monitoring - Exercise Program Goals Exercise Program Goals: Aerobic Activity >30 min, B/P <130/80 Nutrition - 90-Day Assessment - Program Goals Nutrition Program Goals: LDL <70. Total Cholesterol <200. HDL >45. Triglycerides <150. HgbA1C <7%. BMI <25 - Visit Date of Eval: 02/07/18 - Stages of Change Stages of Change:: Action - Lipids Has the patient seen the dietitian?: No - Diabetes Diabetes:: No - Weight Management Weight:: 151 kg - Intervention Referral to dietitian:: No Referral to Diabetic Clinic:: No Will attend diet classes:: Yes - Education Attended class for:: Signs & symptoms of hypoglycemia, Signs & symptoms of hyperglycemia, Relate diabetes to coronary artery disease, Healthy eating Tobacco - Initial Assessment - Program Goals Tobacco Program Goals: Complete smoking cessation. Attend education classes. Improve Knowledge Test score - Learning Barriers Learning Barriers: Ready to Learn Tobacco - 90-Day Assessment - Program Goals Tobacco Program Goals: Complete smoking cessation. Attend education classes. Improve Knowledge Test score - Stage of Change Stages of Change:: Action - Learning Barriers Learning Barriers: Participates in education - Family Support Do you have family support?: Yes - Tobacco Use Tobacco Use: Non-smoker Do you use smokeless tobacco?: No - Intervention Smoking Cessation Referral:: No Individual Education/Counseling:: No Education Schedule Given:: Yes - Education Attended class for:: Tobacco triggers, Coronary artery disease, Risk factors, Sexuality, Medical compliance, Cardiac A&P, Angina signs & symptoms Psychosocial - Initial Assess - Target Goals Target Goals: Assess presence or absence of depression. Using a valid screening tool, maximizes coping skills. Positive support system - Psychosocial Test Tool Used:: HANDS Depression Questionnaire - Assistive Devices Fall Risk Assessed:: Yes Psychosocial - 90-Day Assess - Target Goals Target Goals: Assess presence or absence of depression. Using a valid screening tool, maximizes coping skills. Positive support system - Stages of Change Stages of Change:: Action - Psychosocial Test Tool Used:: HANDS Depression Questionnaire - Intervention PS - Interventions: Yes Attend Stress Management Classes, Yes Uses Stress Management Skills, No Referral to Mental Health, No Referral to [facility] Case Management, No Referral to Physician - Education Attended classes for:: Coping techniques, Signs & symptoms of depression, Relaxation techniques - Assistive Devices Assistive Devices:: None Fall Risk Assessed:: Yes Patient Health Questionnaire 90-Day Re-eval Assessment 1. Little interest or pleasure in doing things: Several days 2. Feeling down, depressed, or hopeless: Not at all 3. Trouble falling or staying asleep, or sleeping too much: Not at all 4. Feeling tired or having little energy: Not at all 5. Poor appetite or overeating: Not at all 6. Feeling bad about yourself -- or that you are a failure or have let yourself or your family down: Not at all 7. Trouble concentrating on things, such as reading the newspaper or watching television: Not at all 8. Moving or speaking so slowly that other people could have noticed. Or the opposite - being so fidgety or restless that you have been moving around a lot more than usual: Not at all 9. Thoughts that you would be better off , or of hurting yourself in some way: Not at all How difficult have these problems made it for you to do your work, take care of things at home, or get along with other people?: Not difficult at all Total Score: 1 Self-Efficacy 90-Day Re-eval Assessment We would like to know how confident you are in doing certain activities. Please select your confidence level for:: Select your confidence level for the following using the scale 1-10 where 1 is not at all confident and 10 is totally confident. Your score is the average of all 6 responses. Fatigue: How confident are you that you can keep the fatigue caused by your disease from interfering with the things you want to do? Select Number: 10 Physical Discomfort or Pain: How confident are you that you can keep the physical discomfort or pain of your disease from interfering with the things you want to do? Select Number: 10 Emotional Distress: How confident are you that you can keep the emotional distress caused by your disease from interfering with the things you want to do? Select Number: 10 Other Symptoms or Health Problems: How confident are you that you can keep other symptoms or health problems from interfering with the things you want to do? Select Number: 10 Different Tasks and Activities: How confident are you that you can do the different tasks and activities needed to manage your health condition so as to reduce your need to see a doctor? Select Number: 10 Medication: How confident are you that you can do things other than just taking medication to reduce how much your illness affects your everyday life? Select Number: 10 Total Score:: 10
[2018-02-07 08:32] VITALS: BP 138/60; BP 150/70
== END 2018-02-11 23:59 ==
LOC: CR 15:15
PROVIDERS: Family Provider Family Medicine; PCP Family Medicine; Visit Provider Internal Medicine Cardiovascular Disease
DX: I21.4 Non-ST elevation (NSTEMI) myocardial infarction (principal); I51.81 Takotsubo syndrome
CPT/HCPCS: 93798

== ENCOUNTER → 2018-02-15 14:42 | Outpatient (CLI) | payer MEDICARE, SELFPAY ==
[2018-02-15 15:45] LABS: T4 Free Direct 1.08 ng/dL (0.76-1.46); Thyroid Stim Hormone (TSH) 2.29 uIU/mL (0.358-3.74)
== END ==
PROVIDERS: Family Provider Family Medicine; PCP Family Medicine; Referring Provider Nurse Practitioner Family; Visit Provider Nurse Practitioner Family
DX: I47.1 Supraventricular tachycardia (principal); R53.83 Other fatigue
CPT/HCPCS: 36415; 84439; 84443

== ENCOUNTER 2018-02-26 15:15 | Outpatient (RCR) | payer MEDICARE, SELFPAY ==
[2018-02-12 01:03] VITALS: BP 138/60; BP 150/70
== END 2018-03-14 23:59 ==
LOC: CR 15:15
PROVIDERS: Family Provider Family Medicine; PCP Family Medicine; Referring Provider Internal Medicine Cardiovascular Disease; Visit Provider Internal Medicine Cardiovascular Disease
DX: I21.4 Non-ST elevation (NSTEMI) myocardial infarction (principal); I51.81 Takotsubo syndrome
CPT/HCPCS: 93798

== ENCOUNTER → 2018-02-27 06:56 | Outpatient (CLI) | payer MEDICARE, SELFPAY ==
--- NOTE | 2018-02-27 13:09 | STRESSREP ---
Stress Test Report Date: 02/27/2018 Procedure: Exercise tolerance test/imaging study Indications: Chest pain; fatigue; Takotsubo Syndrome Consent: Per the patient Procedure: The patient exercised on a Modified Fer protocol for 6 minutes completing Stage II achieving a peak heart rate of 131 bpm (90 % predicted maximal heart rate) with a peak blood pressure 180/98 mmHg and a peak MET capacity of 3 METs. The baseline ECG demonstrated sinus rhythm; PACs. The peak exercise ECG demonstrated PACs only 1-[address] segment depression in leads II, 3, aVF, and approximately 0.[address] segment depression in leads V3 through V6 with gradual resolution towards baseline in recovery. There were occasional PACs pretest, during exercise, and recovery. The functional capacity was considered decreased. There was chest discomfort at peak exercise with spontaneous resolution in recovery. The examination was discontinued secondary to fatigue. Impression: 1. Technically adequate (percent predicted maximal heart rate greater than 85%) exercise tolerance test 2. Peak exercise ECG with approximately 1-[address] segment depression in leads II, 3, aVF, and approximately 0.[address] segment depression in leads V3 through V6 with gradual resolution towards baseline in recovery 3. There were occasional PACs pretest, during exercise, and recovery 4. Nuclear images pending Myocardial perfusion imaging study: Technique: The patient was injected with 11 mCi of technetium 99m Cardiolite and subsequently rest SPECT Cardiolite nuclear imaging was obtained in the horizontal long, vertical long, and short axis views. The patient exercised on a Modified Fer protocol for 6 minutes completing Stage II achieving a peak heart rate of 131 bpm (90% predicted maximal heart rate) with a peak blood pressure 180/98 mmHg and a peak MET capacity of 3 METs. The patient was injected with 32.7 mCi of technetium 99m Cardiolite and subsequently stress SPECT Cardiolite nuclear imaging was obtained in the horizontal long, vertical long, and short axis views. A gated Cardiolite study at peak stress was obtained. Interpretation: Rest and stress SPECT Cardiolite nuclear imaging status post realignment, normalization, and attenuation correction, demonstrates [the appearance of relative uniform tracer uptake and myocardial perfusion appearing within normal limits]. [There is end systolic thickening and brightening]. The gated Cardiolite study demonstrates [myocardial thickening and inward wall motion]. The reported LVEF is 65 %. Impression: 1. Rest and stress SPECT Cardiolite nuclear imaging demonstrate [relative uniform tracer uptake and myocardial perfusion appearing within normal limits]. 2. The gated Cardiolite study reports an LVEF of 65 %. This note was generated with [employer] software. It may contain incorrect words, spelling, and punctuation that were not noted in checking the note before signing.
--- NOTE | 2018-02-27 15:38 | BI_ITS ---
MAMMOGRAPHY - BILATERAL SCREENING REASON FOR EXAM: Female, 77 years old. Routine annual screening examination. PERTINENT HISTORY: Aunt with breast cancer. TECHNIQUE: Digital bilateral breast randi (3D mammographic acquisition) in the CC and MLO projections. 2-D mediolateral oblique (MLO) and craniocaudad (CC) views of both breasts were obtained. CAD: Full Field Digital Mammography with Computer Added Detection was performed. COMPARISON: Comparison is made with prior examination dated December 07, 2016 and December 04, 2015. FINDINGS: Breast Composition: There are scattered areas of fibroglandular density. There are no dominant masses or suspicious calcifications. Stable appearance of the bilateral axillary lymph nodes. No other significant abnormalities are identified. There has been no significant change since the prior study. BI/SCREENING MAMM (CAD), BILAT IMPRESSION: Stable bilateral screening mammogram. Yearly follow-up mammogram recommended. (A) ASSESSMENT CATEGORY: BIRADS Category 2: Benign. A letter regarding these results will be sent to the patient by the facility within 30 days. Approximately 10% of breast cancers are not detected by mammography. A normal mammogram should not delay biopsy of a clinically suspicious abnormality. [id number] Electronically Signed: Bernard Clemente MD at 10:14 EDT Tel [phone], Service support ,
== END ==
PROVIDERS: Family Provider Family Medicine; PCP Family Medicine; Referring Provider Nurse Practitioner Family; Visit Provider Family Medicine
DX: Z12.31 Encounter for screening mammogram for malignant neoplasm of breast (principal); R53.83 Other fatigue; I51.81 Takotsubo syndrome; I21.4 Non-ST elevation (NSTEMI) myocardial infarction; I10 Essential (primary) hypertension; E78.5 Hyperlipidemia, unspecified
CPT/HCPCS: 77063; 77067; 78452; 93017; A9500; A4216

== ENCOUNTER → 2018-04-27 11:03 | Outpatient (CLI) | payer MEDICARE, SELFPAY ==
[2018-04-19 15:55] VITALS: BMI 27.8
== END ==
PROVIDERS: Family Provider Family Medicine; PCP Family Medicine; Referring Provider Internal Medicine Cardiovascular Disease; Visit Provider Internal Medicine Cardiovascular Disease
DX: R00.1 Bradycardia, unspecified (principal)
CPT/HCPCS: 93225; 93226

== ENCOUNTER 2018-07-10 08:48 | Emergency (ER) | payer MEDICARE, SELFPAY ==
[2018-04-19 15:55] VITALS: BMI 27.8
[2018-07-10 08:49] VITALS: BP 206/92; PULSE 53; RESP 18; TEMP 36.6; O2SAT 100; BMI 28.3
--- NOTE | 2018-07-10 09:50 | EKG12_ITS ---
Test Reason : SOB Blood Pressure : / mmHG Vent. Rate : 050 BPM Atrial Rate : 050 BPM P-R Int : 160 ms QRS Dur : 084 ms QT Int : 450 ms P-R-T Axes : 065 -01 035 degrees QTc Int : 410 ms Sinus bradycardia Otherwise normal ECG Confirmed by ZANE KIRKLAND MD ([id number]), field map editor MARLEEN RODRIGUEZ ([id number]) on 07/12/2018 3:50:08 PM Referred By: DIONNE
[2018-07-10] MEDS: 0.9% Normal Saline 1,000 ML 999 ML IV (10:00)
[2018-07-10 10:13] LABS: Absolute Lymphocyte Count 1.21 X10^3/ul (0.83-4.51); Absolute Neutrophil Count 3.6 X10^3/uL (2.0-7.7); Basophil# 0.02 X10^3/uL; Basophil% 0.4 % (0-1); Eosinophil# 0.14 X10^3/uL; Eosinophils% 2.6 % (0-5); Hematocrit 35.3 % (37-47); Hemoglobin 11.3 g/dl (12.0-15.0); Lymphocyte # 1.21 X10^3/ul (4.0); Lymphocyte % 22.9 % (19-41); Mean Corpuscular Volume 87.4 fL (81-99); Mean Platelet Vol. 10.3 fl (6.2-12.0); Monocyte# 0.33 X10^3/uL; Monocyte% 6.2 % (0-10); Neutrophil # 3.59 X10^3/uL (2.7-7.7); Neutrophil % 67.9 % (47-70); Platelet Count 164 K/mm3 (150-450); RBC Distribution Width CV 15.7 % (11.6-14.6); RBC Distribution Width SD 50.8 fl (35.1-43.9); Red Blood Count 4.04 M/mm3 (4.2-5.4); White Blood Count 5.3 K/mm3 (4.4-11.0)
[2018-07-10 10:23] LABS: POSITIVE COUNT NO; POSITIVE DIFFERENTIAL NO; POSITIVE MORPHOLOGY NO
[2018-07-10 10:38] LABS: Anion Gap 6 (5-15); BUN 20 mg/dL (7-18); BUN/Creat Ratio 20.5 RATIO (10-20); Calcium,Total 8.7 mg/dL (8.5-10.1); Chloride 109 mmol/L (98-107); Creatinine, Serum 0.97 mg/dL (0.55-1.02); EST Glomerular Filtration Rate 59 mL/min (>60); Est Glom Filt Rate - Afr Amer 71 mL/min (>60); Estimated Creatinine Clearance 38.41 ml/min; Glucose 84 mg/dL (74-106); Potassium 4.6 mmol/L (3.5-5.1); Sodium Level 142 mmol/L (136-145)
--- NOTE | 2018-07-10 10:47 | CT_ITS ---
STUDY: CTA CHEST REASON FOR EXAM: Female, 78 years old. Elevated d-dimer. Shortness of breath. RADIATION DOSAGE (If Supplied By Facility): CTDIvol = ( 22.20 ) mGy, DLP = ( 227.57 ) mGycm TECHNIQUE: The examination was performed with the intravenous administration of Isovue 370 100CC IV. Post-processing of the angiographic images was performed, with multiplanar reformation and 3D reconstruction. Individualized dose optimization techniques were used for this CT. COMPARISON: None. FINDINGS: Normal enhancement of the main pulmonary artery and right and left pulmonary arteries. Normal enhancement of the bilateral peripheral pulmonary arteries. There is no demonstrated pulmonary embolism. There is atherosclerotic calcification of the aortic arch with tortuosity. There is no demonstrated aortic dissection. Normal heart and pericardium. Normal mediastinum. Normal hilar regions. Normal visualized trachea and bronchi. The lungs are well expanded. Mild increased linear markings in the right upper lobe suggestive of atelectasis and/or scarring. Mild scarring at the lung bases. Normal pleura. Normal chest wall structures. There are degenerative changes of thoracic spine. Increased kyphosis. There is a 2.4 cm cyst in the left lobe of the liver. Small hiatal hernia. CT/CTA Chest W/WO Contrast IMPRESSION: Normal CTA chest examination, without a demonstrated pulmonary embolism or arterial dissection. Findings suggest probable scarring in the right upper lobe as well as both lung bases. Electronically Signed: Bernard Clemente, at 11:29 EST , Service support ,
--- NOTE | 2018-07-10 12:02 | ED.VISSUMM ---
- ER Visit Summary Date of Service: 07/10/18 Chief Complaint: Shortness of breath History of Present Illness: The patient is a 78 F who states that one year ago she fell and hit her head. She has had balance issues ever since. She changed doctors because she did not feel like she was getting anywhere and as part of her workup she was noted chest pain shortness of breath for months. She has a history of Takasabo cardiomyopathy in 2018. As part of her workup pulmonary function tests were ordered. Also a d-dimer was ordered as an outpatient which came back elevated the patient was called and told to come to the emergency department. Nothing is different with her shortness of breath or chest pain over the past several months and nothing is new today. Physical Examination: Afebrile noted bradycardia Gen: Well-nourished well-developed Head: Normocephalic atraumatic Eyes: Perrl EOMI ENT: TMs clear no rhinorrhea moist mucous membranes Neck: Supple no lymphadenopathy no JVD nontender CVS: Regular rate cardiac rhythm no murmurs normal S1-S2 Respiratory: No distress clear to auscultation bilaterally chest nontender Abdomen: Soft nontender nondistended normal bowel sounds no masses Back: Nontender Extremity: Nontender no edema Skin: Normal color no rash Neuro: alert orientated ?3 CN II-XII intact normal strength sensation reflexes gait cerebellar Psych: Anxious and depressed affect Test Results: Normal creatinine. Troponin negative. EKG sinus at a rate of 50. CT Michelle of the chest was negative for pulmonary embolism. Emergency Department Course and Treatment: Patient was given reassurance that she does not have a pulmonary embolism and the most likely cause of her elevated d-dimer was nonemergent. Impression: 1. Elevated d-dimer 2. Chronic chest pain This note was generated with [employer] dictation software. It may contain incorrect words, spelling, and punctuation that were not noted in review of the chart prior to signing ED Disposition - Plan for ED Patient: Disposition: Home or Assisted Living Instructions: D-Dimer Referrals: Jayda Schaefer MD [Primary Care Provider] - Keep Michelle appointment
== END 2018-07-10 12:36 | disposition home or self-care (01) ==
PROVIDERS: Emergency Provider Emergency Medicine; Family Provider Internal Medicine; PCP Internal Medicine
DX: R79.1 Abnormal coagulation profile (principal); R07.9 Chest pain, unspecified; G89.29 Other chronic pain; I51.81 Takotsubo syndrome; Z79.82 Long term (current) use of aspirin; Z79.899 Other long term (current) drug therapy
CPT/HCPCS: 71275; 80048; 84484; 85025; 93005; 99283; Q9967; A4216

== ENCOUNTER 2018-07-28 10:41 | Observation (INO) | payer MEDICARE, SELFPAY ==
[2018-07-17 15:54] VITALS: BMI 28.1
[2018-07-28] VITALS (10 sets, daily range): BP systolic 130–215; BP diastolic 54–102; PULSE 55–59; RESP 14–20; TEMP 35.9–36.8; O2SAT 96–100; BMI 27.4; BMI 27.6
--- NOTE | 2018-07-28 10:53 | EKG12_ITS ---
Test Reason : CP Blood Pressure : / mmHG Vent. Rate : 056 BPM Atrial Rate : 056 BPM P-R Int : 152 ms QRS Dur : 088 ms QT Int : 428 ms P-R-T Axes : 067 -03 038 degrees QTc Int : 413 ms Sinus bradycardia with marked sinus arrhythmia Otherwise normal ECG Confirmed by ISAEL RAMSAY, ZANE ([id number]), news videotape editor MARLEEN RODRIGUEZ ([id number]) on 07/30/2018 4:16:40 PM Referred By: Brooklyn Jacobsen Confirmed By:ZANE KIRKLAND MD
--- NOTE | 2018-07-28 10:53 | RAD_ITS ---
STUDY: X-RAY CHEST REASON FOR EXAM: Female, 78 years old. Hypertension TECHNIQUE: AP COMPARISON: 09/23/2017 FINDINGS: EKG leads project over the chest. The lungs are clear and expanded. There is no demonstrated pleural abnormality. Normal size heart. Normal mediastinum and clarisa. Normal visualized pulmonary arteries. Normal visualized aortic arch and descending thoracic aorta. No acute bony process. There is no demonstrated abnormality of the visualized soft tissue structures of the upper abdomen. RAD/Chest 1 View (Portable) IMPRESSION: Stable, nonacute portable x-ray examination of the chest. Electronically Signed: Lionel Orellana MD at 11:39 EDT , Service support ,
[2018-07-28 11:12] LABS: Absolute Lymphocyte Count 1.04 X10^3/ul (0.83-4.51); Absolute Neutrophil Count 5.3 X10^3/uL (2.0-7.7); Basophil# 0.03 X10^3/uL; Basophil% 0.4 % (0-1); Eosinophil# 0.13 X10^3/uL; Eosinophils% 1.9 % (0-5); Hematocrit 38.2 % (37-47); Hemoglobin 12.1 g/dl (12.0-15.0); Lymphocyte # 1.04 X10^3/ul (4.0); Lymphocyte % 14.9 % (19-41); Mean Corp Hgb Conc 31.7 g/gl (32-36); Mean Corpuscular Hgb 27.4 pg (27.0-32.0); Mean Corpuscular Volume 86.4 fL (81-99); Mean Platelet Vol. 10.2 fl (6.2-12.0); Monocyte% 7.1 % (0-10); Neutrophil # 5.29 X10^3/uL (2.7-7.7); Neutrophil % 75.6 % (47-70); Platelet Count 185 K/mm3 (150-450); RBC Distribution Width SD 48.2 fl (35.1-43.9); Red Blood Count 4.42 M/mm3 (4.2-5.4)
[2018-07-28 11:13] LABS: POSITIVE COUNT NO; POSITIVE DIFFERENTIAL NO; POSITIVE MORPHOLOGY NO
[2018-07-28] MEDS: Aspirin 81 MG TAB.CHEW 324 MG PO (11:28)
[2018-07-28 11:30] LABS: Anion Gap 1 (5-15); BUN 20 mg/dL (7-18); BUN/Creat Ratio 19.2 RATIO (10-20); Calcium,Total 8.7 mg/dL (8.5-10.1); Chloride 110 mmol/L (98-107); Creatinine, Serum 1.04 mg/dL (0.55-1.02); EST Glomerular Filtration Rate 55 mL/min (>60); Est Glom Filt Rate - Afr Amer 66 mL/min (>60); Estimated Creatinine Clearance 35.83 ml/min; Glucose 91 mg/dL (74-106); Potassium 4.3 mmol/L (3.5-5.1); Sodium Level 141 mmol/L (136-145)
--- NOTE | 2018-07-28 12:21 | ED.DCSUM_ITS ---
- ER Visit Summary Date of Service: 07/28/18 Chief Complaint: Chest pain History of Present Illness: The patient is a 78 F who presents with chest pain for about 11 hours she has intermittent episodes lasting 5-10 minutes and there tightness. The first 1 was at rest however it it seems to be the other ones are with ambulation. She has no radiation to her back and no tearing sensation no DVT or PE risk factors. Physical Examination: Not appear in acute distress. Moist mucous membranes, no obvious facial deformity No C-spine tenderness supple neck. Regular rate and rhythm without any obvious murmurs Clear lungs bilaterally speaking in full sentences without any obvious respira tory distress Abdomen soft and nontender no guarding or rebound Moves all extremities without any difficulty or pain. Skin does not show any obvious rashes or lesions, no trauma. Alert oriented ?3 with no gross focal deficit Emergency Department Course and Treatment: Patient has an unremarkable workup, however her heart score is a 5. She will need admission for further cardiac workup. Disposition: Admit in stable condition Impression: [Chest pain] This note was generated with [employer] dictation software. It may contain incorrect words, spelling, and punctuation that were not noted in review of the chart prior to signing ED Disposition - Plan for ED Patient: Referrals: Jayda Schaefer MD [Primary Care Provider] -
--- NOTE | 2018-07-28 12:42 | HP.PCM_ITS ---
History of Present Illness Date of Admission: 07/28/18 Chief Complaint: chest tightness The patient is a 78 year old F with an extensive past medical history as listed including Takotsubo's cardiomyopathy. She was admitted through the ED with complaint of chest tightness started a couple of days prior to admission. She did not have any palpitations or dizziness or lightheadedness, abdominal pain, diarrhea or vomiting or lower extremity edema. She states symptoms have been going on for about a year but got worse the day before admission. She also notices that her blood pressure had been high at home though she states she is compliant with her medications. Review of systems otherwise negative. Labs and vitals reviewed. Initial troponin the ED was negative and EKG showed bradycardia with sinus arrhythmia. She is been admitted to be managed for chest pain to rule out ACS as well as hypertensive emergency. [] Past Medical History Past Medical History (Chronic Problems): Chronic Problems (Last Reviewed 03/01/18 @ 15:50 by Marietta Parmar) DDD (degenerative disc disease), lumbar (Chronic) Other chest pain (Chronic) Abnormal stress test (Chronic) Hypertension (Chronic) Hyperlipidemia (Chronic) Other intermediate (current) drug therapy (Chronic) CAD (coronary artery disease) (Chronic) Medical History: Medical History (Last Reviewed 03/01/18 @ 15:50 by Marietta Parmar) Tooth fracture (Acute) S02.5XXA Contusion of right knee (Acute) S80.01XA Contusion of right hand (Acute) S60.221A Laceration of lip without foreign body (Acute) S01.511A Unspecified fall, initial encounter (Acute) W19.XXXA Takotsubo cardiomyopathy (Resolved) I51.81 Atrial tachycardia (Acute) I47.1 BRENT (acute kidney injury) (Acute) N17.9 Cardiopulmonary arrest (Acute) I46.9 NSTEMI (non-ST elevated myocardial infarction) (Acute) I21.4 Acute respiratory failure with hypoxia (Acute) J96.01 Acute systolic (congestive) heart failure (Suspected) I50.21 EF 20% Wrist pain, left (Acute) M25.532 DDD (degenerative disc disease), lumbar (Chronic) M51.36 Segmental and somatic dysfunction of thoracic region (Acute) M99.02 Segmental and somatic dysfunction of lumbar region (Acute) M99.03 Segmental and somatic dysfunction of cervical region (Acute) M99.01 Other chest pain (Chronic) R07.89 Abnormal stress test (Chronic) R94.39 Hypertension (Chronic) I10 Hyperlipidemia (Chronic) E78.5 Other director long term care (current) drug therapy (Chronic) Z79.899 CAD (coronary artery disease) (Chronic) I25.10 Anemia D64.9 Back pain M54.9 Chest pain R07.9 Difficulty balancing R29.818 Fatigue R53.83 Limb weakness R29.898 SOB (shortness of breath) R06.02 Shoulder pain M25.519 History of hysterectomy Z90.710 Allergies codeine Allergy (Verified 07/28/18 10:41) Other oxycodone HCl [From OxyContin] Allergy (Verified 07/28/18 10:41) Other Home Medications: Ambulatory Orders Medication Instructions Recorded Aspirin [Adult Low Dose Aspirin EC] 81 mg PO DAILY 02/22/16 levothyroxine 25 mcg tablet 25 mcg PO DAILY 02/15/18 isosorbide mononitrate ER 30 mg 30 mg PO DAILY #30 tab 05/21/18 tablet,extended release 24 hr atenolol 25 mg tablet 25 mg PO DAILY 07/17/18 cod liver oil capsule 1 cap PO BID 07/17/18 coenzyme Q10 100 mg capsule 100 mg PO DAILY 07/17/18 lisinopril 10 mg tablet 10 mg PO BID #60 tab 07/20/18 Surgical History: Surgical History (Last Reviewed 07/17/18 @ 16:03 by Itzel Salcido) History of appendectomy Z90.49 History of section Z98.891 X 2 History of left heart catheterization Onset Date: 09/15/17 Z98.890 History of open reduction and internal fixation (ORIF) procedure Z98.890 left leg History of total left knee replacement Z96.652 Surgical History: appendectomy, total knee arthroplasty, - - section. Lives: Alone Smoking Status: Never smoker Alcohol: None - *Family History Maternal Family History: Family History (Last Reviewed 07/17/18 @ 16:03 by Itzel Salcido) Father Cancer History Items: No pertinent history Paternal Family History: Family History (Last Reviewed 07/17/18 @ 16:03 by Itzel Salcido) Father Cancer History Items: No pertinent history Review of Systems Constitutional: Denies: Chills, Fever, Malaise, Weight Change, Fatigue Eyes: Denies: Blurred vision HEENT: Denies: Head Aches, Sinus Congestion, Sinus Drainage Cardiovascular: Reports: Chest Pain, Chest Tightness. Denies: Chest Pressure, Edema, Heaviness, Light Headedness, Orthopnea, Palpitations, Paroxysmal Noc. Dyspnea, Syncope Respiratory: Denies: Cough, Shortness of Breath, Shortness of breath at rest, Shortness of breath upon exertion, Sputum production, Wheezing Gastrointestinal: Denies: Abdominal Pain, Nausea, Vomiting Genitourinary: Denies: Dysuria Musculoskeletal: Denies: Joint Pain, Joint Tenderness Skin: Denies: Rash, Wounds Neurological: Denies: Numbness, Tingling, Focal weakness Psychiatric: Denies: Anxiety, Depression, Homicidal Ideations, Suicidal Ideations Hematologic/ Lymphatic: Denies: Easy Bruising, Easy Bleeding VTE Information - Inpt Only VTE Present on Admission: No VTE Pharm Prophylaxis ordered?: Yes - Physical Exam General: Alert, Oriented x3, Cooperative, No apparent distress HEENT: Atraumatic, PERRLA, EOMI, Normocephalic Oral: Moist Mucosa Neck: Supple, No JVD, Negative Carotid Bruits Lungs: Clear to auscultation, Normal air movement, No rhonchi, No wheeze, No rales Cardiovascular: Regular rate, Regular Rhythm, Normal S1, Normal S2, No murmurs Abdomen: Bowel Sounds Present, Soft, Non Tender, Non-Distended, No Hepato- splenomegaly Extremities: No clubbing, No cyanosis, No edema, Capillary Refill Less than 3 Seconds Skin: No rashes, No breakdown Musculoskeletal: No Tenderness to Palpation of Joints or Extremities Lymphatic: No Cervical, Supraclavicular, or Inguinal Adenopathy Neurological: Cranial nerves II-XII grossly intact, Neuro grossly intact, Motor Exam 5/5 strength throughout Psych/Mental Status: Normal Affect, Appropriate, Alert and oriented to time, place, person, mood and affect Vital Signs Temp Pulse Resp BP Pulse Ox 96.7 F L 57 L 14 211/65 H 98 07/28/18 10:42 07/28/18 12:34 07/28/18 12:34 07/28/18 12:34 07/28/18 12:34 Oxygen Delivery Method Room Air Weight: 150 lb Body Mass Index (BMI) 27.4 Laboratory Tests Past 24 Hrs 07/28/18 07/28/18 11:03 11:03 WBC 7.0 RBC 4.42 Hgb 12.1 Hct 38.2 MCV 86.4 MCH 27.4 MCHC 31.7 L RDW 15.0 H RDW Differential 48.2 H Plt Count 185 MPV 10.2 Immature Gran % (Auto) 0.100 Neut % (Auto) 75.6 H Lymph % (Auto) 14.9 L [place] % (Auto) 7.1 Eos % (Auto) 1.9 Baso % (Auto) 0.4 Absolute Neuts (auto) 5.3 Absolute Lymphs (auto) 1.04 Total Counted Not Reportable Sodium 141 Potassium 4.3 Chloride 110 H Carbon Dioxide 30.0 Anion Gap 1 L BUN 20 H Creatinine 1.04 H Estim Creat Clear Calc 35.83 Est GFR (MDRD) Af Amer 66 Est GFR (MDRD) Non-Af 55 L BUN/Creatinine Ratio 19.2 Glucose 91 Calcium 8.7 Troponin I < 0.015 Diagnostic Data Chest X-Ray 07/28/18 10:53 IMPRESSION: Stable, nonacute portable x-ray examination of the chest. Electronically Signed: Lionel Orellana MD at 11:39 EDT , Service support , Assessment/Plan All Active Problems (Last Reviewed 03/01/18 @ 15:50 by Marietta Parmar) Premature atrial contraction (Acute) Ectopic atrial tachycardia (Acute) Tooth fracture (Acute) Contusion of right knee (Acute) Contusion of right hand (Acute) Laceration of lip without foreign body (Acute) Unspecified fall, initial encounter (Acute) Takotsubo cardiomyopathy (Resolved) Atrial tachycardia (Acute) BRENT (acute kidney injury) (Acute) Cardiopulmonary arrest (Acute) NSTEMI (non-ST elevated myocardial infarction) (Acute) Acute respiratory failure with hypoxia (Acute) Wrist pain, left (Acute) Segmental and somatic dysfunction of thoracic region (Acute) Segmental and somatic dysfunction of lumbar region (Acute) Segmental and somatic dysfunction of cervical region (Acute) 78 y/o admitted with a complaint of chest pain and tightness 1. Chest pain to r/o ACS * Initial troponin was negative. EKG showed marked sinus arrhythmia with bradycardia. * To PCU telemetry. Cycle troponins. * Sublingual nitroglycerin as needed. P.o. aspirin 81 mg daily. * If troponins are negative, for stress test on Monday. * 2. Hypertensive emergency * BP >200s systolic on admission. sister says her BP has been high for a few days * That she is been compliant with her medication. * On atenolol 25 mg daily and lisinopril 10 mg daily. Will continue medications and give p.o. clonidine 0.3 mg x1. IV hydralazine as needed. * Adjust medications as needed. * 3. History of Takotsubo cardiomyopathy * had this last year. * EF was 20% * on lisinopril. * 4. DVT prophylaxis: lovenox Code Visit OBSV E&M: 97445 Initial observation care L3
--- NOTE | 2018-07-28 13:51 | EKG12_ITS ---
Test Reason : CP ADMIT Blood Pressure : / mmHG Vent. Rate : 042 BPM Atrial Rate : 042 BPM P-R Int : 150 ms QRS Dur : 084 ms QT Int : 460 ms P-R-T Axes : 066 -12 035 degrees QTc Int : 384 ms Marked sinus bradycardia with Premature atrial complexes Abnormal ECG When compared with ECG of 10-JUL-2018 10:05, Premature atrial complexes are now Present Confirmed by ISAEL RAMSAY, ZANE ([id number]), avid editor MARLEEN RODRIGUEZ ([id number]) on 08/01/2018 1:21:15 PM Referred By: Brooklyn Jacobsen Confirmed By:ZANE KIRKLAND MD
[2018-07-28] MEDS: hydrALAZINE 20 MG/ML Vial 10 MG IV (14:29)
[2018-07-28] MEDS: 0.9% NaCl Peripheral Flush Adult/Peds IV (14:30)
[2018-07-28] MEDS: Lisinopril 10 MG Tablet PO (21:43)
[2018-07-28] MEDS: Isosorbide Mononitrate 30 MG Tablet PO (21:43)
[2018-07-29] VITALS (12 sets, daily range): BP systolic 127–160; BP diastolic 56–75; PULSE 40–60; RESP 14–18; TEMP 36.5–36.8; O2SAT 96–98
[2018-07-29 05:50] LABS: Anion Gap 3 (5-15); BUN 19 mg/dL (7-18); BUN/Creat Ratio 19.8 RATIO (10-20); Calcium,Total 8.4 mg/dL (8.5-10.1); Chloride 113 mmol/L (98-107); Creatinine, Serum 0.96 mg/dL (0.55-1.02); EST Glomerular Filtration Rate 60 mL/min (>60); Est Glom Filt Rate - Afr Amer 72 mL/min (>60); Estimated Creatinine Clearance 38.81 ml/min; Glucose 91 mg/dL (74-106); Potassium 4.4 mmol/L (3.5-5.1); Sodium Level 144 mmol/L (136-145)
[2018-07-29 06:11] LABS: Absolute Lymphocyte Count 1.66 X10^3/ul (0.83-4.51); Basophil# 0.03 X10^3/uL; Basophil% 0.5 % (0-1); Eosinophil# 0.16 X10^3/uL; Eosinophils% 2.5 % (0-5); Hematocrit 35.5 % (37-47); Hemoglobin 11.3 g/dl (12.0-15.0); Lymphocyte # 1.66 X10^3/ul (4.0); Lymphocyte % 25.5 % (19-41); Mean Corp Hgb Conc 31.8 g/gl (32-36); Mean Corpuscular Hgb 27.5 pg (27.0-32.0); Mean Corpuscular Volume 86.4 fL (81-99); Mean Platelet Vol. 11.1 fl (6.2-12.0); Monocyte# 0.62 X10^3/uL; Monocyte% 9.5 % (0-10); Neutrophil # 4.02 X10^3/uL (2.7-7.7); Neutrophil % 61.8 % (47-70); Platelet Count 197 K/mm3 (150-450); RBC Distribution Width CV 15.1 % (11.6-14.6); RBC Distribution Width SD 48.2 fl (35.1-43.9); Red Blood Count 4.11 M/mm3 (4.2-5.4); White Blood Count 6.5 K/mm3 (4.4-11.0)
[2018-07-29] MEDS: Levothyroxine 25 MCG TABLET PO (06:11)
[2018-07-29 06:19] LABS: POSITIVE COUNT NO; POSITIVE DIFFERENTIAL NO; POSITIVE MORPHOLOGY NO
[2018-07-29] MEDS: Aspirin E.C. 81 MG Tablet PO (08:55)
[2018-07-29] MEDS: Lisinopril 10 MG Tablet PO ×2 (08:56→21:07)
[2018-07-29] MEDS: Isosorbide Mononitrate 30 MG Tablet PO (08:56)
[2018-07-29] MEDS: Enoxaparin 40 MG/0.4 ML Syringe SC (08:56)
[2018-07-29] MEDS: Acetaminophen 325 MG Tablet 650 MG PO (10:06)
--- NOTE | 2018-07-29 13:18 | PN_ITS ---
<Shivani Mckeon - Last Filed: 07/29/18 13:18> Subjective: Patient seen and examined. Denies further chest pain. Patient reports she has had multiple traumatic events over the past several years that have caused her stress. Recommended outpatient counseling and discussion with her PCP regarding depression/anxiety regimen. Plan for stress test in a.m. - Physical Exam General: Alert, Oriented x3, Cooperative HEENT: Atraumatic, PERRLA, EOMI, Normocephalic Neck: Supple, No JVD, Negative Carotid Bruits Lungs: Clear to auscultation, Normal air movement Cardiovascular: Regular rate, Regular Rhythm, Normal S1, Normal S2, No murmurs Abdomen: Bowel Sounds Present, Soft, Non Tender, Non-Distended Extremities: No clubbing, No cyanosis, No edema, Capillary Refill Less than 3 Seconds Skin: No rashes, No breakdown Musculoskeletal: No Tenderness to Palpation of Joints or Extremities Neurological: Cranial nerves II-XII grossly intact, Neuro grossly intact Psych/Mental Status: Normal Affect, Appropriate Vital Signs Temp Pulse Resp BP Pulse Ox 97.7 F L 48 L 14 160/75 H 98 07/29/18 09:04 07/29/18 11:00 07/29/18 09:04 07/29/18 09:04 07/29/18 09:04 Oxygen Delivery Method Room Air Weight: 150 lb 12.739 oz Body Mass Index (BMI) 27.6 Intake and Output for Last 24 Hours 07/27/18 07/28/18 07/29/18 23:59 23:59 23:59 Intake Total 200 / 200 Balance 200 / 200 Laboratory Tests Past 24 Hrs 07/28/18 07/28/18 07/29/18 14:24 16:50 05:10 WBC RBC Hgb Hct MCV MCH MCHC RDW RDW Differential Plt Count MPV Immature Gran % (Auto) Neut % (Auto) Lymph % (Auto) Holt % (Auto) Eos % (Auto) Baso % (Auto) Absolute Neuts (auto) Absolute Lymphs (auto) Total Counted Sodium 144 Potassium 4.4 Chloride 113 H Carbon Dioxide 28.0 Anion Gap 3 L BUN 19 H Creatinine 0.96 Estim Creat Clear Calc 38.81 Est GFR (MDRD) Af Amer 72 Est GFR (MDRD) Non-Af 60 BUN/Creatinine Ratio 19.8 Glucose 91 Calcium 8.4 L Troponin I < 0.015 < 0.015 07/29/18 05:10 WBC 6.5 RBC 4.11 L Hgb 11.3 L Hct 35.5 L MCV 86.4 MCH 27.5 MCHC 31.8 L RDW 15.1 H RDW Differential 48.2 H Plt Count 197 MPV 11.1 Immature Gran % (Auto) 0.200 Neut % (Auto) 61.8 Lymph % (Auto) 25.5 Holt % (Auto) 9.5 Eos % (Auto) 2.5 Baso % (Auto) 0.5 Absolute Neuts (auto) 4.0 Absolute Lymphs (auto) 1.66 Total Counted Not Reportable Sodium Potassium Chloride Carbon Dioxide Anion Gap BUN Creatinine Estim Creat Clear Calc Est GFR (MDRD) Af Amer Est GFR (MDRD) Non-Af BUN/Creatinine Ratio Glucose Calcium Troponin I Medical Necessity - Tobacco Use Smoking Status: Never smoker Assessment/Plan All Active Problems (Last Reviewed 03/01/18 @ 15:50 by Marietta Parmar) Premature atrial contraction (Acute) Ectopic atrial tachycardia (Acute) Tooth fracture (Acute) Contusion of right knee (Acute) Contusion of right hand (Acute) Laceration of lip without foreign body (Acute) Unspecified fall, initial encounter (Acute) Takotsubo cardiomyopathy (Resolved) Atrial tachycardia (Acute) BRENT (acute kidney injury) (Acute) Cardiopulmonary arrest (Acute) NSTEMI (non-ST elevated myocardial infarction) (Acute) Acute respiratory failure with hypoxia (Acute) Wrist pain, left (Acute) Segmental and somatic dysfunction of thoracic region (Acute) Segmental and somatic dysfunction of lumbar region (Acute) Segmental and somatic dysfunction of cervical region (Acute) 1. Atypical chest pain-troponin negative. EKG without ST-T changes. Plan for stress test in a.m. Continue aspirin regimen. 2. Hypertensive emergency-resolved. Possibly contributing to #1. Home atenolol, isosorbide and lisinopril regimen continued. PRN hydralazine. 3. History of Takotsubo cardiomyopathy- heart cath September 2017 showed EF 20%, consistent with takotsubo cardiomyopathy. Follows with Dr. Dacosta. 4. Hypothyroidism-continue home Synthroid regimen. DVT prophylaxis-Lovenox subcu This patient was seen by Shivani Mike, [employer] HELPER[employer]C under the supervision of Dr. Jacobsen. <DelmarBrooklyn Lund - Last Filed: 07/29/18 14:21> - Physical Exam Vital Signs Temp Pulse Resp BP Pulse Ox 97.7 F L 48 L 14 160/75 H 98 07/29/18 09:04 07/29/18 11:00 07/29/18 09:04 07/29/18 09:04 07/29/18 09:04 Oxygen Delivery Method Room Air Weight: 150 lb 12.739 oz Body Mass Index (BMI) 27.6 Intake and Output for Last 24 Hours 07/27/18 07/28/18 07/29/18 23:59 23:59 23:59 Intake Total 560 / 560 Balance 560 / 560 Laboratory Tests Past 24 Hrs 07/28/18 07/28/18 07/29/18 14:24 16:50 05:10 WBC RBC Hgb Hct MCV MCH MCHC RDW RDW Differential Plt Count MPV Immature Gran % (Auto) Neut % (Auto) Lymph % (Auto) Holt % (Auto) Eos % (Auto) Baso % (Auto) Absolute Neuts (auto) Absolute Lymphs (auto) Total Counted Sodium 144 Potassium 4.4 Chloride 113 H Carbon Dioxide 28.0 Anion Gap 3 L BUN 19 H Creatinine 0.96 Estim Creat Clear Calc 38.81 Est GFR (MDRD) Af Amer 72 Est GFR (MDRD) Non-Af 60 BUN/Creatinine Ratio 19.8 Glucose 91 Calcium 8.4 L Troponin I < 0.015 < 0.015 07/29/18 05:10 WBC 6.5 RBC 4.11 L Hgb 11.3 L Hct 35.5 L MCV 86.4 MCH 27.5 MCHC 31.8 L RDW 15.1 H RDW Differential 48.2 H Plt Count 197 MPV 11.1 Immature Gran % (Auto) 0.200 Neut % (Auto) 61.8 Lymph % (Auto) 25.5 Holt % (Auto) 9.5 Eos % (Auto) 2.5 Baso % (Auto) 0.5 Absolute Neuts (auto) 4.0 Absolute Lymphs (auto) 1.66 Total Counted Not Reportable Sodium Potassium Chloride Carbon Dioxide Anion Gap BUN Creatinine Estim Creat Clear Calc Est GFR (MDRD) Af Amer Est GFR (MDRD) Non-Af BUN/Creatinine Ratio Glucose Calcium Troponin I Assessment/Plan Patient seen by Shivani CHOWDHURY under my supervision Patient was admitted with a complaint of chest pain. troponins x 3 were negative. EKG showed no acute ST changes. She was seen and examined this morning. She has no complaints and feels well. Review of systems otherwise negative. labs and vitals reviewed. o/e: Vital Signs Height 5 ft 2 in Weight: 150 lb 12.739 oz Weight in Pounds 150.8 lbs Pulse Ox 98 Temperature 97.7 F Pulse Rate 48 Respiratory Rate 14 Blood Pressure 160/75 Blood Pressure Position Semi-Fowlers General: Alert, Oriented x3, Cooperative, No apparent distress HEENT: Atraumatic, PERRLA, EOMI, Normocephalic Oral: Moist Mucosa Neck: Supple, No JVD, Negative Carotid Bruits Lungs: Clear to auscultation, Normal air movement, No rhonchi, No wheeze, No rales Cardiovascular: Regular rate, Regular Rhythm, Normal S1, Normal S2, No murmurs Abdomen: Bowel Sounds Present, Soft, Non Tender, Non-Distended, No Hepato- splenomegaly Extremities: No clubbing, No cyanosis, No edema, Capillary Refill Less than 3 Seconds Skin: No rashes, No breakdown Musculoskeletal: No Tenderness to Palpation of Joints or Extremities Lymphatic: No Cervical, Supraclavicular, or Inguinal Adenopathy Neurological: Cranial nerves II-XII grossly intact, Neuro grossly intact, Motor Exam 5/5 strength throughout Psych/Mental Status: Normal Affect, Appropriate, Alert and oriented to time, place, person, mood and affect Plan is for stress test tomorrow. Rest of management as per Shivani Anton's note which I have reviewed and endorse. Code Visit OBSV E&M: 18117 Subsequent observation care L2
[2018-07-30] VITALS (10 sets, daily range): BP systolic 117–182; BP diastolic 46–67; PULSE 49–72; RESP 16–18; TEMP 36.3–36.6; O2SAT 98–100
--- NOTE | 2018-07-30 05:55 | EKG12_ITS ---
Test Reason : AM EKG Blood Pressure : / mmHG Vent. Rate : 050 BPM Atrial Rate : 050 BPM P-R Int : 164 ms QRS Dur : 090 ms QT Int : 464 ms P-R-T Axes : 064 008 042 degrees QTc Int : 423 ms Sinus bradycardia with Premature atrial complexes in a pattern of bigeminy Otherwise normal ECG When compared with ECG of 28-JUL-2018 13:57, MANUAL COMPARISON REQUIRED, DATA IS UNCONFIRMED Confirmed by ISAEL RAMSAY, ZANE ([id number]), technical writer and editor MARLEEN RODRIGUEZ ([id number]) on 08/01/2018 1:19:43 PM Referred By: Brooklyn Jacobsen Confirmed By:ZANE KIRKLAND MD
[2018-07-30 06:00] LABS: Anion Gap 4 (5-15); BUN 21 mg/dL (7-18); Calcium,Total 8.5 mg/dL (8.5-10.1); Chloride 113 mmol/L (98-107); EST Glomerular Filtration Rate 57 mL/min (>60); Est Glom Filt Rate - Afr Amer 69 mL/min (>60); Estimated Creatinine Clearance 37.26 ml/min; Glucose 86 mg/dL (74-106); Potassium 4.2 mmol/L (3.5-5.1); Sodium Level 146 mmol/L (136-145)
[2018-07-30 06:14] LABS: International Normalized Ratio 1.1; Prothrombin Time (Protime)PT. 13.7 SECONDS (11.7-14.9)
[2018-07-30 06:15] LABS: Partial Thromboplast Time 35.4 Seconds (24.1-36.2)
[2018-07-30 06:21] LABS: Absolute Neutrophil Count 2.7 X10^3/uL (2.0-7.7); Basophil# 0.02 X10^3/uL; Basophil% 0.4 % (0-1); Eosinophil# 0.13 X10^3/uL; Eosinophils% 2.7 % (0-5); Hematocrit 36.3 % (37-47); Hemoglobin 11.5 g/dl (12.0-15.0); Lymphocyte % 29.4 % (19-41); Mean Corp Hgb Conc 31.7 g/gl (32-36); Mean Corpuscular Hgb 27.7 pg (27.0-32.0); Mean Corpuscular Volume 87.5 fL (81-99); Mean Platelet Vol. 11.5 fl (6.2-12.0); Monocyte# 0.51 X10^3/uL; Monocyte% 10.7 % (0-10); Neutrophil # 2.69 X10^3/uL (2.7-7.7); Neutrophil % 56.6 % (47-70); Platelet Count 179 K/mm3 (150-450); RBC Distribution Width CV 14.7 % (11.6-14.6); RBC Distribution Width SD 46.7 fl (35.1-43.9); Red Blood Count 4.15 M/mm3 (4.2-5.4); White Blood Count 4.8 K/mm3 (4.4-11.0)
[2018-07-30 06:28] LABS: POSITIVE COUNT NO; POSITIVE DIFFERENTIAL NO; POSITIVE MORPHOLOGY NO
[2018-07-30] MEDS: Lisinopril 10 MG Tablet PO (06:42)
[2018-07-30] MEDS: Levothyroxine 25 MCG TABLET PO (06:42)
[2018-07-30] MEDS: 0.9% NaCl Peripheral Flush Adult/Peds IV ×2 (06:42→08:20)
[2018-07-30] MEDS: Aspirin E.C. 81 MG Tablet PO (06:42)
[2018-07-30] MEDS: hydrALAZINE 20 MG/ML Vial 10 MG IV (08:20)
--- NOTE | 2018-07-30 10:31 | CASEMGMT ---
This RN CM to room with GALDAMEZ form at this time and pt is currently out of the dept getting a stress test at this time. This RN CM will attempt again later. Gabriella REDDY CM
--- NOTE | 2018-07-30 11:46 | PCM.CONS.C ---
Reason for Consult Date of Consultation: 07/30/18 Reason for Consultation: Chest tightness History of Present Illness: The patient is a 78 year old F with a history of previous stress-induced cardiomyopathy status post cardiac catheterization in September 2017 demonstrating no significant coronary artery disease but with significant anterior hypokinesis. She was managed with medication and underwent a repeat echocardiogram in January which demonstrated improvement of her ejection fraction to approximately 60%. She presented to the emergency room with chest tightness and a hypertensive emergency. Due to the above she was admitted to the telemetry unit she ruled out for myocardial infarction and underwent stress testing. She is denied any dizziness or diaphoresis near syncope or syncope she really does not have any palpitations but continues to have this tightness. [] Past Medical History Allergies/Adverse Reactions: Allergies codeine Allergy (Verified 07/28/18 10:41) Other oxycodone HCl [From OxyContin] Allergy (Verified 07/28/18 10:41) Other Home Medications: Ambulatory Orders Medication Instructions Recorded Aspirin [Adult Low Dose Aspirin EC] 81 mg PO DAILY 02/22/16 levothyroxine 25 mcg tablet 25 mcg PO DAILY 02/15/18 atenolol 25 mg tablet 25 mg PO DAILY 07/17/18 Isosorbide Mononitrate [Isosorbide 30 mg PO DAILY 07/28/18 Mononitrate ER] Lisinopril [Prinivil] 10 mg PO BID 07/28/18 Past Medical History (Chronic Problems): Chronic Problems (Last Reviewed 03/01/18 @ 15:50 by Marietta Parmar) DDD (degenerative disc disease), lumbar (Chronic) Other chest pain (Chronic) Abnormal stress test (Chronic) Hypertension (Chronic) Hyperlipidemia (Chronic) 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 - *Family History Maternal Family History: Family History (Last Reviewed 07/17/18 @ 16:03 by Itzel Salcido) Father Cancer History Items: No pertinent history Paternal Family History: Family History (Last Reviewed 07/17/18 @ 16:03 by Itzel Salcido) Father Cancer History Items: No pertinent history Lives: Alone Smoking Status: Never smoker Alcohol: None Drugs: None Review of Systems - Review of Systems General: Denies: Fever, Night Sweats, Fatigue HEENT: Denies: Vision Change Cardiovascular: Reports: Chest Tightness. Denies: Chest Discomfort, Shortness of Breath, Orthopnea, PND, Peripheral Edema, Palpitations, Lightheadedness, Dizziness, Near Syncope, Syncope Respiratory: Denies: Cough, Sputum Production, Hemoptysis Gastrointestinal: Denies: Hematemesis, Hematochezia, Melena Genitourinary: Denies: Dysuria, Hematuria Muscoloskeletal: Denies: Myalgias Skin: Denies: Rash Neurological: Denies: Dizziness Psychiatric: Denies: Anxiety Endocrine: Denies: Excessive Sweating Objective: Vital Signs Temp Pulse Resp BP Pulse Ox 97.4 F L 64 16 132/67 H 98 07/30/18 09:16 07/30/18 09:16 07/30/18 09:16 07/30/18 09:16 07/30/18 09:16 Oxygen Delivery Method Room Air Weight: 150 lb 12.739 oz Body Mass Index (BMI) 27.6 Intake and Output for Last 24 Hours 07/28/18 07/29/18 07/30/18 23:59 23:59 23:59 Intake Total 1250 / 1250 Balance 1250 / 1250 07/30/18 05:00: WBC 4.8, RBC 4.15 L, Hgb 11.5 L, Hct 36.3 L, MCV 87.5, MCH 27.7, MCHC 31.7 L, RDW 14.7 H, RDW Differential 46.7 H, Plt Count 179, MPV 11.5, Immature Gran % (Auto) 0.200, Neut % (Auto) 56.6, Lymph % (Auto) 29.4, [place] % (Auto) 10.7 H, Eos % (Auto) 2.7, Baso % (Auto) 0.4, Absolute Neuts (auto) 2.7, Total Counted Not Reportable 07/30/18 05:00: PT 13.7, INR 1.1, APTT 35.4 07/30/18 05:00: Sodium 146 H, Potassium 4.2, Chloride 113 H, Carbon Dioxide 29.0, Anion Gap 4 L, BUN 21 H, Creatinine 1.00, Est GFR (MDRD) Af Amer 69, Est GFR (MDRD) Non-Af 57 L, BUN/Creatinine Ratio 21.0 H, Glucose 86, Calcium 8.5 Rhythm: EKG: Normal sinus rhythm with no acute changes ECHO: Previous echocardiogram demonstrated preserved ejection fraction with mild lateral hypokinesis estimated EF 60% Stress Test: Cardiac Cath: Minimal coronary artery disease involving the ostial LAD PCI: CT Surgery: Holter monitor: EPS: PPM: CXR: Chest CT Scan: Assessment/Plan 1. Chest pain The above chest discomfort appears to be atypical and probably more related to her very elevated blood pressure. The episodic nature of the blood pressure elevation is not entirely clear to me at this time. She has been ordered stress testing and this would be reviewed. My recommendation however will be to continue medical therapy. With her normal coronary arteries a year plus ago I do not expect significant progression of the above especially in light of a normal EKG and no abnormal cardiac enzymes Addendum. Stress test demonstrated no evidence of ischemia at a moderate workload. 2. Hypertension Her blood pressure appears to be suboptimally controlled. I would recommend the following DC atenolol Substitute Toprol-XL 50 mg a day Increase lisinopril to 20 mg a day 3. Supraventricular tachycardia She was noted to have episodes of supraventricular tachycardia during her stress test. The rate was approximately 151 bpm and was a narrow complex short RP tachycardia. If the above is not abated with a beta-anastacio I would refer her for radiofrequency ablation. This can be done as an outpatient by her primary day haul youth supervisor Thank you for allowing me to participate in the care of your patient. Please don't hesitate to call if any issues arise
--- NOTE | 2018-07-30 11:51 | CON.PCM_ITS ---
Reason for Consult Date of Consultation: 07/30/18 Reason for Consultation: Chest tightness History of Present Illness: The patient is a 78 year old F with a history of previous stress-induced cardiomyopathy status post cardiac catheterization in September 2017 demonstrating no significant coronary artery disease but with significant anterior hypokinesis. She was managed with medication and underwent a repeat echocardiogram in January which demonstrated improvement of her ejection fraction to approximately 60%. She presented to the emergency room with chest tightness and a hypertensive emergency. Due to the above she was admitted to the telemetry unit she ruled out for myocardial infarction and underwent stress testing. She is denied any dizziness or diaphoresis near syncope or syncope she really does not have any palpitations but continues to have this tightness. [] Past Medical History Allergies/Adverse Reactions: Allergies codeine Allergy (Verified 07/28/18 10:41) Other oxycodone HCl [From OxyContin] Allergy (Verified 07/28/18 10:41) Other Home Medications: Ambulatory Orders Medication Instructions Recorded Aspirin [Adult Low Dose Aspirin EC] 81 mg PO DAILY 02/22/16 levothyroxine 25 mcg tablet 25 mcg PO DAILY 02/15/18 atenolol 25 mg tablet 25 mg PO DAILY 07/17/18 Isosorbide Mononitrate [Isosorbide 30 mg PO DAILY 07/28/18 Mononitrate ER] Lisinopril [Prinivil] 10 mg PO BID 07/28/18 Past Medical History (Chronic Problems): Chronic Problems (Last Reviewed 03/01/18 @ 15:50 by Marietta Parmar) DDD (degenerative disc disease), lumbar (Chronic) Other chest pain (Chronic) Abnormal stress test (Chronic) Hypertension (Chronic) Hyperlipidemia (Chronic) 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 - *Family History Maternal Family History: Family History (Last Reviewed 07/17/18 @ 16:03 by Itzel Salcido) Father Cancer History Items: No pertinent history Paternal Family History: Family History (Last Reviewed 07/17/18 @ 16:03 by Itzel Salcido) Father Cancer History Items: No pertinent history Lives: Alone Smoking Status: Never smoker Alcohol: None Drugs: None Review of Systems - Review of Systems General: Denies: Fever, Night Sweats, Fatigue HEENT: Denies: Vision Change Cardiovascular: Reports: Chest Tightness. Denies: Chest Discomfort, Shortness of Breath, Orthopnea, PND, Peripheral Edema, Palpitations, Lightheadedness, Dizziness, Near Syncope, Syncope Respiratory: Denies: Cough, Sputum Production, Hemoptysis Gastrointestinal: Denies: Hematemesis, Hematochezia, Melena Genitourinary: Denies: Dysuria, Hematuria Muscoloskeletal: Denies: Myalgias Skin: Denies: Rash Neurological: Denies: Dizziness Psychiatric: Denies: Anxiety Endocrine: Denies: Excessive Sweating Objective: Vital Signs Temp Pulse Resp BP Pulse Ox 97.4 F L 64 16 132/67 H 98 07/30/18 09:16 07/30/18 09:16 07/30/18 09:16 07/30/18 09:16 07/30/18 09:16 Oxygen Delivery Method Room Air Weight: 150 lb 12.739 oz Body Mass Index (BMI) 27.6 Intake and Output for Last 24 Hours 07/28/18 07/29/18 07/30/18 23:59 23:59 23:59 Intake Total 1250 / 1250 Balance 1250 / 1250 07/30/18 05:00: WBC 4.8, RBC 4.15 L, Hgb 11.5 L, Hct 36.3 L, MCV 87.5, MCH 27.7, MCHC 31.7 L, RDW 14.7 H, RDW Differential 46.7 H, Plt Count 179, MPV 11.5, Immature Gran % (Auto) 0.200, Neut % (Auto) 56.6, Lymph % (Auto) 29.4, [place] % (Auto) 10.7 H, Eos % (Auto) 2.7, Baso % (Auto) 0.4, Absolute Neuts (auto) 2.7, Total Counted Not Reportable 07/30/18 05:00: PT 13.7, INR 1.1, APTT 35.4 07/30/18 05:00: Sodium 146 H, Potassium 4.2, Chloride 113 H, Carbon Dioxide 29.0, Anion Gap 4 L, BUN 21 H, Creatinine 1.00, Est GFR (MDRD) Af Amer 69, Est GFR (MDRD) Non-Af 57 L, BUN/Creatinine Ratio 21.0 H, Glucose 86, Calcium 8.5 Rhythm: EKG: Normal sinus rhythm with no acute changes ECHO: Previous echocardiogram demonstrated preserved ejection fraction with mild lateral hypokinesis estimated EF 60% Stress Test: Cardiac Cath: Minimal coronary artery disease involving the ostial LAD PCI: CT Surgery: Holter monitor: EPS: PPM: CXR: Chest CT Scan: Assessment/Plan 1. Chest pain * The above chest discomfort appears to be atypical and probably more related to her very elevated blood pressure. The episodic nature of the blood pressure elevation is not entirely clear to me at this time. She has been ordered st ress testing and this would be reviewed. My recommendation however will be to continue medical therapy. With her normal coronary arteries a year plus ago I do not expect significant progression of the above especially in light of a normal EKG and no abnormal cardiac enzymes * Addendum. Stress test demonstrated no evidence of ischemia at a moderate workload. 2. Hypertension * Her blood pressure appears to be suboptimally controlled. I would recommend the following * DC atenolol * Substitute Toprol-XL 50 mg a day * Increase lisinopril to 20 mg a day * 3. Supraventricular tachycardia * She was noted to have episodes of supraventricular tachycardia during her stress test. The rate was approximately 151 bpm and was a narrow complex short RP tachycardia. If the above is not abated with a beta-anastacio I would refer her for radiofrequency ablation. * This can be done as an outpatient by her primary domestic travel consultant * * Thank you for allowing me to participate in the care of your patient. Please don't hesitate to call if any issues arise
--- NOTE | 2018-07-30 12:47 | PCM.PN.HOSP ---
Subjective: Patient seen and examined. She had no complaints this morning. Review of systems otherwise negative. Patient went up for stress test this morning and during the procedure, she was noted to have chest pain and also had SVT per monitor. Stress test stopped and cardiology consulted. Labs and vitals reviewed. Vitals/I&O's: Vital Signs Temp Pulse Resp BP Pulse Ox 97.9 F 56 L 16 117/46 L 99 07/30/18 11:54 07/30/18 11:54 07/30/18 11:54 07/30/18 11:54 07/30/18 11:54 Oxygen Delivery Method Room Air Weight: 150 lb 12.739 oz Body Mass Index (BMI) 27.6 Intake and Output for Last 24 Hours 07/28/18 07/29/18 07/30/18 23:59 23:59 23:59 Intake Total 1250 / 1250 Balance 1250 / 1250 General: Alert, Oriented x3, Cooperative, No apparent distress HEENT: Atraumatic, PERRLA, EOMI, Normocephalic Oral: Moist Mucosa Neck: Supple, No JVD, Negative Carotid Bruits Lungs: Clear to auscultation, Normal air movement, No rhonchi, No wheeze, No rales Cardiovascular: Regular rate, Regular Rhythm, Normal S1, Normal S2, No murmurs Abdomen: Bowel Sounds Present, Soft, Non Tender, Non-Distended, No Hepato-splenomegaly Extremities: No clubbing, No cyanosis, No edema, Capillary Refill Less than 3 Seconds Skin: No rashes, No breakdown Musculoskeletal: No Tenderness to Palpation of Joints or Extremities Lymphatic: No Cervical, Supraclavicular, or Inguinal Adenopathy Neurological: Cranial nerves II-XII grossly intact, Neuro grossly intact, Motor Exam 5/5 strength throughout Psych/Mental Status: Normal Affect, Appropriate, Alert and oriented to time, place, person, mood and affect Laboratory Results 07/30/18 05:00: WBC 4.8, RBC 4.15 L, Hgb 11.5 L, Hct 36.3 L, MCV 87.5, MCH 27.7, MCHC 31.7 L, RDW 14.7 H, RDW Differential 46.7 H, Plt Count 179, MPV 11.5, Immature Gran % (Auto) 0.200, Neut % (Auto) 56.6, Lymph % (Auto) 29.4, [place] % (Auto) 10.7 H, Eos % (Auto) 2.7, Baso % (Auto) 0.4, Absolute Neuts (auto) 2.7, Absolute Lymphs (auto) 1.40, Total Counted Not Reportable 07/30/18 05:00: PT 13.7, INR 1.1, APTT 35.4 07/30/18 05:00: Sodium 146 H, Potassium 4.2, Chloride 113 H, Carbon Dioxide 29.0, Anion Gap 4 L, BUN 21 H, Creatinine 1.00, Estim Creat Clear Calc 37.26, Est GFR (MDRD) Af Amer 69, Est GFR (MDRD) Non-Af 57 L, BUN/Creatinine Ratio 21.0 H, Glucose 86, Calcium 8.5 Current Medications Acetaminophen (Tylenol) 650 mg PO Q6H PRN PRN PRN Reason: MILD PAIN (-07/22) Last Admin: 07/29/18 10:06 Dose: 650 mg Aspirin (Ecotrin) 81 mg PO DAILY [facility] Last Admin: 07/30/18 06:42 Dose: 81 mg Enoxaparin Sodium (Lovenox) 40 mg SC DAILY@1000 [facility] Last Admin: 07/30/18 11:13 Dose: Not Given Hydralazine HCl (Apresoline Iv) 10 mg IV Q6H PRN PRN PRN Reason: BLOOD PRESSURE ELEVATION Last Admin: 07/30/18 08:20 Dose: 10 mg Levothyroxine Sodium (Synthroid) 25 mcg PO DAILY@0600 [facility] Last Admin: 07/30/18 06:42 Dose: 25 mcg Lisinopril (Zestril) 10 mg PO BID [facility] Last Admin: 07/30/18 06:42 Dose: 10 mg Magnesium Hydroxide (Milk Of Magnesia) 30 ml PO DAILY PRN PRN PRN Reason: Constipation Metoprolol Succinate (Toprol Xl (Beta Anastacio)) 50 mg PO DAILY [facility] Nitroglycerin (Nitrostat) 0.4 mg SUBLINGUAL Q5M PRN PRN Reason: CARDIAC/CHEST PAIN Sodium Chloride () 5 - 15 ml IV UD PRN PRN Reason: SALINE FLUSH Last Admin: 07/30/18 08:20 Dose: 10 ml Medical Necessity - Tobacco Use Smoking Status: Never smoker Assessment/Plan All Active Problems (Last Reviewed 10/18/18 @ 15:50 by Marietta Parmar) Premature atrial contraction (Acute) Ectopic atrial tachycardia (Acute) Tooth fracture (Acute) Contusion of right knee (Acute) Contusion of right hand (Acute) Laceration of lip without foreign body (Acute) Unspecified fall, initial encounter (Acute) Takotsubo cardiomyopathy (Resolved) Atrial tachycardia (Acute) BRENT (acute kidney injury) (Acute) Cardiopulmonary arrest (Acute) NSTEMI (non-ST elevated myocardial infarction) (Acute) Acute respiratory failure with hypoxia (Acute) Wrist pain, left (Acute) Segmental and somatic dysfunction of thoracic region (Acute) Segmental and somatic dysfunction of lumbar region (Acute) Segmental and somatic dysfunction of cervical region (Acute) 1. CHest pain to r.o ACS troponinx x 3 were negative she had stress test today during which she she had chest pain and SVT cardiology consulted; think the chest pain is likely due to elevated BP. per cardiology, to continue medical management for now. on aspirin 81mg daily 2. SupraVentricular tachycardia: Had SVT during surgery with heart rate going up to 151 bpm and was in our complex tachycardia. Per cardiology, if it is not ablated with the beta-anastacio was to be referred for radiofrequency ablation. 3. Hypertensive emergency BP >200s systolic on admission. sister says her BP has been high for a few days That she is been compliant with her medication. On atenolol 25 mg daily and lisinopril 10 mg daily. BP remains elevted. Medication adjusted and atenolol dc'd. She was started on toprol xl 50mg dailya nd lisinopril was increased to 20mg daily. IV hydralazine prn 4. History of Takotsubo cardiomyopathy had this last year. EF was 20% on lisinopril. DVT prophylaxis: lovenox Code Visit Inpatient E&M: 94146 Subs Hosp L3
--- NOTE | 2018-07-30 12:49 | CASEMGMT ---
HOLGER left a message for Anshu at [facility] inquiring if someone could come see patient today. Await return call. Suly ROYAL
--- NOTE | 2018-07-30 12:50 | CASEMGMT ---
This RN PAWEL to room with GALDAMEZ form at this time, explanation done-pt voices understanding, and signs form at this time. Pt voices no further questions/concerns/needs at this time. Original to chart and copy to pt at this time. SStcecilia REDDY CM
--- NOTE | 2018-07-30 12:57 | PN_ITS ---
Subjective: Patient seen and examined. She had no complaints this morning. Review of systems otherwise negative. Patient went up for stress test this morning and during the procedure, she was noted to have chest pain and also had SVT per monitor. Stress test stopped and cardiology consulted. Labs and vitals reviewed. Vitals/I&O's: Vital Signs Temp Pulse Resp BP Pulse Ox 97.9 F 56 L 16 117/46 L 99 07/30/18 11:54 07/30/18 11:54 07/30/18 11:54 07/30/18 11:54 07/30/18 11:54 Oxygen Delivery Method Room Air Weight: 150 lb 12.739 oz Body Mass Index (BMI) 27.6 Intake and Output for Last 24 Hours 07/28/18 07/29/18 07/30/18 23:59 23:59 23:59 Intake Total 1250 / 1250 Balance 1250 / 1250 General: Alert, Oriented x3, Cooperative, No apparent distress HEENT: Atraumatic, PERRLA, EOMI, Normocephalic Oral: Moist Mucosa Neck: Supple, No JVD, Negative Carotid Bruits Lungs: Clear to auscultation, Normal air movement, No rhonchi, No wheeze, No rales Cardiovascular: Regular rate, Regular Rhythm, Normal S1, Normal S2, No murmurs Abdomen: Bowel Sounds Present, Soft, Non Tender, Non-Distended, No Hepato- splenomegaly Extremities: No clubbing, No cyanosis, No edema, Capillary Refill Less than 3 Seconds Skin: No rashes, No breakdown Musculoskeletal: No Tenderness to Palpation of Joints or Extremities Lymphatic: No Cervical, Supraclavicular, or Inguinal Adenopathy Neurological: Cranial nerves II-XII grossly intact, Neuro grossly intact, Motor Exam 5/5 strength throughout Psych/Mental Status: Normal Affect, Appropriate, Alert and oriented to time, place, person, mood and affect Laboratory Results 07/30/18 05:00: WBC 4.8, RBC 4.15 L, Hgb 11.5 L, Hct 36.3 L, MCV 87.5, MCH 27.7, MCHC 31.7 L, RDW 14.7 H, RDW Differential 46.7 H, Plt Count 179, MPV 11.5, Immature Gran % (Auto) 0.200, Neut % (Auto) 56.6, Lymph % (Auto) 29.4, [place] % (Auto) 10.7 H, Eos % (Auto) 2.7, Baso % (Auto) 0.4, Absolute Neuts (auto) 2.7, Absolute Lymphs (auto) 1.40, Total Counted Not Reportable 07/30/18 05:00: PT 13.7, INR 1.1, APTT 35.4 07/30/18 05:00: Sodium 146 H, Potassium 4.2, Chloride 113 H, Carbon Dioxide 29.0, Anion Gap 4 L, BUN 21 H, Creatinine 1.00, Estim Creat Clear Calc 37.26, Est GFR (MDRD) Af Amer 69, Est GFR (MDRD) Non-Af 57 L, BUN/Creatinine Ratio 21.0 H, Glucose 86, Calcium 8.5 Current Medications Acetaminophen (Tylenol) 650 mg PO Q6H PRN PRN PRN Reason: MILD PAIN (-07/22) Last Admin: 07/29/18 10:06 Dose: 650 mg Aspirin (Ecotrin) 81 mg PO DAILY [facility] Last Admin: 07/30/18 06:42 Dose: 81 mg Enoxaparin Sodium (Lovenox) 40 mg SC DAILY@1000 [facility] Last Admin: 07/30/18 11:13 Dose: Not Given Hydralazine HCl (Apresoline Iv) 10 mg IV Q6H PRN PRN PRN Reason: BLOOD PRESSURE ELEVATION Last Admin: 07/30/18 08:20 Dose: 10 mg Levothyroxine Sodium (Synthroid) 25 mcg PO DAILY@0600 [facility] Last Admin: 07/30/18 06:42 Dose: 25 mcg Lisinopril (Zestril) 10 mg PO BID [facility] Last Admin: 07/30/18 06:42 Dose: 10 mg Magnesium Hydroxide (Milk Of Magnesia) 30 ml PO DAILY PRN PRN PRN Reason: Constipation Metoprolol Succinate (Toprol Xl (Beta Anastacio)) 50 mg PO DAILY [facility] Nitroglycerin (Nitrostat) 0.4 mg SUBLINGUAL Q5M PRN PRN Reason: CARDIAC/CHEST PAIN Sodium Chloride () 5 - 15 ml IV UD PRN PRN Reason: SALINE FLUSH Last Admin: 07/30/18 08:20 Dose: 10 ml Medical Necessity - Tobacco Use Smoking Status: Never smoker Assessment/Plan All Active Problems (Last Reviewed 10/18/18 @ 15:50 by Marietta Parmar) Premature atrial contraction (Acute) Ectopic atrial tachycardia (Acute) Tooth fracture (Acute) Contusion of right knee (Acute) Contusion of right hand (Acute) Laceration of lip without foreign body (Acute) Unspecified fall, initial encounter (Acute) Takotsubo cardiomyopathy (Resolved) Atrial tachycardia (Acute) BRENT (acute kidney injury) (Acute) Cardiopulmonary arrest (Acute) NSTEMI (non-ST elevated myocardial infarction) (Acute) Acute respiratory failure with hypoxia (Acute) Wrist pain, left (Acute) Segmental and somatic dysfunction of thoracic region (Acute) Segmental and somatic dysfunction of lumbar region (Acute) Segmental and somatic dysfunction of cervical region (Acute) 1. CHest pain to r.o ACS * troponinx x 3 were negative * she had stress test today during which she she had chest pain and SVT * cardiology consulted; think the chest pain is likely due to elevated BP. * per cardiology, to continue medical management for now. * on aspirin 81mg daily * 2. SupraVentricular tachycardia: * Had SVT during surgery with heart rate going up to 151 bpm and was in our complex tachycardia. * Per cardiology, if it is not ablated with the beta-anastacio was to be referred for radiofrequency ablation. * 3. Hypertensive emergency * BP >200s systolic on admission. sister says her BP has been high for a few days * That she is been compliant with her medication. * On atenolol 25 mg daily and lisinopril 10 mg daily. * BP remains elevted. Medication adjusted and atenolol dc'd. She was started on toprol xl 50mg dailya nd lisinopril was increased to 20mg daily. * IV hydralazine prn * 4. History of Takotsubo cardiomyopathy * had this last year. * EF was 20% * on lisinopril. * DVT prophylaxis: lovenox Code Visit Inpatient E&M: 26397 [facility] Hosp L3
--- NOTE | 2018-07-30 13:06 | STRESSREP ---
Stress Test Report Exercise myocardial perfusion stress test. 78-year-old lady with a history of chest pain. Stress protocol: Resting EKG demonstrates normal sinus rhythm with a rate of 61 bpm normal intervals are noted resting blood pressure 128/70 mmHg. The patient exercised according to the modified Fer protocol for total duration of 10 minutes. The maximum heart rate attained was 153 bpm which was 106% of maximum predicted heart rate the maximum workload attained was 5.8 metabolic equivalents. At rest there were no ST or T wave changes noted suggest ischemia peak exercise upsloping ST changes were noted with no meet the criteria for ischemia. The patient did have 2 episodes of a narrow complex tachycardia with a rate of approximately 142 bpm consistent with an AV reentrant tachycardia. The above was minimally symptomatic. During the SVT there was mild worsening of ST depression but they appeared to be upsloping. The patient really spontaneously broke out of these rhythm abnormalities. The resting blood pressure 128/70 with a peak blood pressure 160/72. Myocardial perfusion protocol. 11.7 mCi of technetium 99m sestamibi was injected at rest. The patient exercised according to regular Fer protocol as noted above at peak exercise 33.4 mCi of technetium 99m sestamibi was injected stress images were obtained stress and rest images were reconstructed and compared in the short axis vertical long horizontal long axis. Gated images were also obtained Perfusion SPECT analysis: Review of the stress images demonstrate normal uptake of tracer noted in all areas of myocardium. The rest images similarly demonstrate normal uptake of tracer noted in all areas of myocardium. No areas of reversibility are noted suggest ischemia no previous infarct is noted. Gated SPECT analysis: The gated ejection fraction is noted to be 77%. Conclusion: Normal exercise myocardial perfusion stress test at a moderate workload. Preserved ejection fraction. Supraventricular tachyarrhythmia with a rate of 140 bpm spontaneously terminating
--- NOTE | 2018-07-30 14:47 | DCINST_ITS ---
You will use the following diet at home:: Cardiac Your food should be the consistency of: Regular Your liquids should be the consistency of: Regular/Thin Discharge Activity: Return to Normal Activity Weight Bearing Status: Weight bearing as tolerated Call your doctor if you observe: Shortness of breath, Dizziness, Swelling in the ankles, Chest pain Instructions: Discharge Instructions: Taking Fast-Acting Nitroglycerin, Discharge Instructions for Angina Allergies/Adverse Reactions: Allergies codeine Allergy (Verified 07/28/18 10:41) Other oxycodone HCl [From OxyContin] Allergy (Verified 07/28/18 10:41) Other Medications to take at Discharge Aspirin [Adult Low Dose Aspirin EC] 81 mg PO DAILY 02/22/16 levothyroxine 25 mcg tablet 25 mcg PO DAILY 02/15/18 Isosorbide Mononitrate [Isosorbide Mononitrate ER] 30 mg PO DAILY 07/28/18 Lisinopril 20 mg PO DAILY #30 tablet 07/30/18 Metoprolol(XL)Succ [Toprol Xl (Beta Maykel)] 50 mg PO DAILY #30 tablet 07/30/18 The following prescriptions were given: Lisinopril 20 mg PO DAILY #30 tablet Metoprolol(XL)Succ [Toprol Xl (Beta Maykel)] 50 mg PO DAILY #30 tablet Primary Care Physician: Jayda Schaefer MD [Primary Care Provider] - Please follow up with your Primary Care Physician in: one week Test Results: Test results from this visit will be discussed in further detail at your follow- up appointment, if applicable. When: 1-2 weeks Proposed Discharge Date: 07/30/18
--- NOTE | 2018-07-30 14:47 | PCM.DC.SUM ---
Discharge Date and Diagnosis Date of Admission: 07/28/18 Date of Discharge: 07/30/18 - Primary Discharge Diagnosis chest pain supraventricular tachycardia - Secondary Discharge Diagnosis Chronic Problems (Last Reviewed 03/01/18 @ 15:50 by Marietta Parmar) DDD (degenerative disc disease), lumbar (Chronic) Other chest pain (Chronic) Abnormal stress test (Chronic) Hypertension (Chronic) Hyperlipidemia (Chronic) Other shelter (current) drug therapy (Chronic) CAD (coronary artery disease) (Chronic) Hospital Course and Treatment Imaging Results: 07/30/18 08:25 Nuclear Stress Test - Treadmil [NM] Routine cardiology Operations: None Procedures: Nuclear stress test Summary of Care Provided: The patient is a 78 year old F with an extensive past medical history as listed including Takotsubo's cardiomyopathy. She was admitted through the ED with complaint of chest tightness started a couple of days prior to admission. She did not have any palpitations or dizziness or lightheadedness, abdominal pain, diarrhea or vomiting or lower extremity edema. She stated symptoms had been going on for about a year but got worse the day before admission. She also noticed that her blood pressure had been high at home though she stated she had been compliant with her medications. Review of systems otherwise negative. Labs and vitals reviewed. Initial troponin the ED was negative and EKG showed bradycardia with sinus arrhythmia. She was admitted to be managed for chest pain to rule out ACS as well as hypertensive emergency. Blood pressure control improved just IV hydralazine and p.o. clonidine in addition to her oral medications. Troponins x3 were negative. She had a stress test on 07/30/2018. Initially during the stress test, patient was noted to have recurrence of chest pain as well as supraventricular tachycardia. Pressure control was also noted to be poor. Her atenolol was stopped and she was started on Toprol-XL 50 mg daily as well as her lisinopril increased to 20 mg daily. Her heart rate was noted to have gone up to 151 bpm during the stress test and was noted to be a narrow complex tachycardia. Cardiology was consulted and per their recommendation, if the supraventricular tachycardia was not abated by beta-blockers she could be referred for radiofrequency ablation on outpatient basis. Patient stress test was negative and demonstrated no evidence of ischemia to moderate workload. Patient remained stable and was discharged home on 07/30/2018 after the aforementioned changes have been made to her medications. She is to follow-up with her primary care doctor and cardiology. Patient seen and examined prior to discharge. She had no complaints and felt well. Review of systems otherwise negative. Labs and vitals reviewed. Home medication reviewed and reconciled. o/e: Vital Signs Height 5 ft 2 in Weight: 150 lb 12.739 oz Weight in Pounds 150.8 lbs Pulse Ox 99 Temperature 97.9 F Pulse Rate 56 Respiratory Rate 16 Blood Pressure [BP] 117/46 Blood Pressure 132/67 Blood Pressure Position [BP] Sitting Blood Pressure Position Supine General: Alert, Oriented x3, Cooperative, No apparent distress HEENT: Atraumatic, PERRLA, EOMI, Normocephalic Oral: Moist Mucosa Neck: Supple, No JVD, Negative Carotid Bruits Lungs: Clear to auscultation, Normal air movement, No rhonchi, No wheeze, No rales Cardiovascular: Regular rate, Regular Rhythm, Normal S1, Normal S2, No murmurs Abdomen: Bowel Sounds Present, Soft, Non Tender, Non-Distended, No Hepato-splenomegaly Extremities: No clubbing, No cyanosis, No edema, Capillary Refill Less than 3 Seconds Skin: No rashes, No breakdown Musculoskeletal: No Tenderness to Palpation of Joints or Extremities Lymphatic: No Cervical, Supraclavicular, or Inguinal Adenopathy Neurological: Cranial nerves II-XII grossly intact, Neuro grossly intact, Motor Exam 5/5 strength throughout Psych/Mental Status: Normal Affect, Appropriate, Alert and oriented to time, place, person, mood and affect Plan as described above. - Physical Exam Vital Signs Temp Pulse Resp BP Pulse Ox 97.9 F 56 L 16 117/46 L 99 07/30/18 11:54 07/30/18 11:54 07/30/18 11:54 07/30/18 11:54 07/30/18 11:54 Oxygen Delivery Method Room Air Weight: 150 lb 12.739 oz Body Mass Index (BMI) 27.6 Intake and Output for Last 24 Hours 07/28/18 07/29/18 07/30/18 23:59 23:59 23:59 Intake Total 1250 / 1250 Balance 1250 / 1250 Laboratory Tests Past 24 Hrs 07/30/18 07/30/18 07/30/18 05:00 05:00 05:00 WBC 4.8 RBC 4.15 L Hgb 11.5 L Hct 36.3 L MCV 87.5 MCH 27.7 MCHC 31.7 L RDW 14.7 H RDW Differential 46.7 H Plt Count 179 MPV 11.5 Immature Gran % (Auto) 0.200 Neut % (Auto) 56.6 Lymph % (Auto) 29.4 Callaway % (Auto) 10.7 H Eos % (Auto) 2.7 Baso % (Auto) 0.4 Absolute Neuts (auto) 2.7 Absolute Lymphs (auto) 1.40 Total Counted Not Reportable PT 13.7 INR 1.1 APTT 35.4 Sodium 146 H Potassium 4.2 Chloride 113 H Carbon Dioxide 29.0 Anion Gap 4 L BUN 21 H Creatinine 1.00 Estim Creat Clear Calc 37.26 Est GFR (MDRD) Af Amer 69 Est GFR (MDRD) Non-Af 57 L BUN/Creatinine Ratio 21.0 H Glucose 86 Calcium 8.5 Discharge Diet: Low fat/ Low Cholesterol Discharge Activity: Return to Normal Activity Weight Bearing Status: Weight bearing as tolerated Call your doctor if you observe: Shortness of breath, Dizziness, Swelling in the ankles, Chest pain Home Medications: Medications to take at Discharge Aspirin [Adult Low Dose Aspirin EC] 81 mg PO DAILY 02/22/16 levothyroxine 25 mcg tablet 25 mcg PO DAILY 02/15/18 Isosorbide Mononitrate [Isosorbide Mononitrate ER] 30 mg PO DAILY 07/28/18 Lisinopril 20 mg PO DAILY #30 tablet 07/30/18 Metoprolol(XL)Succ [Toprol Xl (Beta Maykel)] 50 mg PO DAILY #30 tablet 07/30/18 Following Prescrptions Were Given to Patient: Lisinopril 20 mg PO DAILY #30 tablet Metoprolol(XL)Succ [Toprol Xl (Beta Maykel)] 50 mg PO DAILY #30 tablet Primary Care Physician: Jayda Schaefer MD [Primary Care Provider] - Please follow up with your Primary Care Physician in: one week When: 1-2 weeks Patient Instructions: Discharge Instructions: Taking Fast-Acting Nitroglycerin, Discharge Instructions for Angina Disposition: Home Minutes spent on discharge:: 40 Patient Condition:: Stable Medical Necessity - Tobacco Use Smoking Status: Never smoker Meaningful Use Info Meaningful Use Diagnoses (Choose all that apply): None applicable Code Visit Inpatient E&M: 75263 Disch Hosp
--- NOTE | 2018-07-30 15:25 | CASEMGMT ---
SW spoke with patient. Introduced self and role at [facility]. She had a friend present and did not want her friend to leave. SW discussed with her that per physician it sounds like she has been through a lot and would benefit from counseling. She said she tried a therapist and he said she was fine. 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 She asked HOLGER if SW felt she should talk with a counselor. SW told her that HOLGER thinks it would be a great idea and most people would benefit from talking with a counselor. HOLGER gave her the resource list for counseling in the area. She thanked HOLGER for checking in with her. Suly CERVANTES MSW
== END 2018-07-30 16:47 | disposition home or self-care (01) ==
LOC: ED 11:41 → PCU 12:47
PROVIDERS: Nurse Practitioner Family; Admitting Provider Student in an Organized Health Care Education/Training Program; Emergency Provider Emergency Medicine; Family Provider Internal Medicine; PCP Internal Medicine; Referring Provider Student in an Organized Health Care Education/Training Program; Visit Provider Student in an Organized Health Care Education/Training Program
DX: R07.89 Other chest pain (principal); I47.1 Supraventricular tachycardia; I25.10 Atherosclerotic heart disease of native coronary artery without angina pectoris; E78.5 Hyperlipidemia, unspecified; I10 Essential (primary) hypertension; M51.36 Other intervertebral disc degeneration, lumbar region; R94.31 Abnormal electrocardiogram [ECG] [EKG]; I25.2 Old myocardial infarction; I16.1 Hypertensive emergency; I51.81 Takotsubo syndrome; F32.9 Major depressive disorder, single episode, unspecified; F41.9 Anxiety disorder, unspecified; E03.9 Hypothyroidism, unspecified; Z79.899 Other long term (current) drug therapy; Z79.82 Long term (current) use of aspirin
CPT/HCPCS: 36415; 71045; 78452; 80048; 84484; 85025; 85610; 85730; 93005; 93017; 96372; 96374; 96376; 97161; 97165; 99218; 99283; A9500; J7030; A4216; G0378

== ENCOUNTER → 2018-12-05 | Outpatient (CLI) | payer MEDICARE, SELFPAY ==
[2018-11-14 13:54] VITALS: BMI 26.6
--- NOTE | 2018-12-05 16:35 | MRI_ITS ---
STUDY: MRI CERVICAL SPINE WITHOUT CONTRAST REASON FOR EXAM: Female, 78 years old. Numbness with tingling and bilateral arm weakness TECHNIQUE: Standardized fat and water weighted pulse sequences were obtained in the sagittal and axial planes. COMPARISON: None FINDINGS: Normal foramen magnum and brainstem-cervical cord junction. Normal craniovertebral junction. Normal anterior atlantoaxial articulation. Normal odontoid process. Normal cervical lordosis. Normal vertebral bodies and posterior osseous elements. C2-3: Normal endplates. Normal disc height, signal and morphology. Normal central canal and intervertebral neural foramina. C3-4: Normal endplates. Normal disc height, signal and morphology. Normal central canal and intervertebral neural foramina. C4-5: Normal endplates. Normal disc height, signal and morphology. Normal central canal and intervertebral neural foramina. C5-6: Normal endplates. Normal disc height, and minor bulging disc osteophyte complex.. Normal central canal. Severe bilateral neuroforaminal stenosis secondary to bony hypertrophy. C6-7: Normal endplates. Normal disc height, signal and minor bulging of the disc. Normal central canal. Mild bilateral neural foraminal encroachment secondary to disc and bony hypertrophy C7-T1: Normal endplates. Normal disc height, signal and morphology. Normal central canal and intervertebral neural foramina. Normal cervical cord. Normal visualized soft tissue structures. MRI/Spine Cervical (Routine) IMPRESSION: No evidence for acute fracture or significant bony pathology. Spondylosis most severe at C5-6 where there is severe bilateral neuroforaminal stenosis secondary to bony hypertrophy.. Electronically Signed: Jewel Valera MD at 18:02 EDT , Service support ,
== END | disposition home or self-care (01) ==
LOC: MRI 16:20
PROVIDERS: Family Provider Family Medicine; PCP Family Medicine; Referring Provider Nurse Practitioner Family; Visit Provider Nurse Practitioner Family
DX: R20.0 Anesthesia of skin (principal); R20.2 Paresthesia of skin; R29.898 Other symptoms and signs involving the musculoskeletal system
CPT/HCPCS: 72141

== ENCOUNTER → 2018-12-31 | Outpatient (CLI) | payer MEDICARE, SELFPAY ==
[2018-11-14 13:54] VITALS: BMI 26.6
== END | disposition home or self-care (01) ==
LOC: SL 20:08
PROVIDERS: Family Provider Family Medicine; PCP Family Medicine; Referring Provider Nurse Practitioner Family; Visit Provider Nurse Practitioner Family
DX: G47.10 Hypersomnia, unspecified (principal)
CPT/HCPCS: 95810

== ENCOUNTER → 2019-01-03 | Outpatient (CLI) | payer MEDICARE, SELFPAY ==
[2018-11-14 13:54] VITALS: BMI 26.6
--- NOTE | 2019-01-03 14:02 | NEURO ---
NCS and/or EMG Patient Report Ordering Doctor: Kimberlyn Iverson DATE OF SERVICE: 01/03/19 Yuliya Hernandez is a 78-year-old female presents for electrodiagnostic testing of the right lower limb. Due to previous left leg surgery and pain, she refuses any testing of the left lower limb. She reports weakness in leg strength and poor balance for the past 2 years. Electrodiagnostic findings: Right peroneal motor nerve demonstrates normal distal latency, with normal amplitude and conduction velocity. Normal right tibial motor response. Normal right tibial and peroneal F wave. Sensory responses are within normal limits. On needle EMG, all muscles tested in the right lower limb showed no evidence of denervation with normal motor unit action potentials. No denervation in the right lumbar paraspinals. Electrodiagnostic impression: This is a normal electrodiagnostic study of the right lower limb. There is no electrodiagnostic evidence for lumbosacral radiculopathy or peripheral neuropathy.
== END | disposition home or self-care (01) ==
LOC: PSN 12:08
PROVIDERS: Family Provider Family Medicine; PCP Family Medicine; Referring Provider Nurse Practitioner Family; Visit Provider Nurse Practitioner Family
DX: R20.0 Anesthesia of skin (principal); R20.2 Paresthesia of skin
CPT/HCPCS: 95886; 95909

== ENCOUNTER → 2019-01-17 20:37 | Outpatient (CLI) | payer MEDICARE, SELFPAY ==
[2018-11-14 13:54] VITALS: BMI 26.6
== END ==
PROVIDERS: Family Provider Family Medicine; PCP Family Medicine; Visit Provider Nurse Practitioner Family
DX: G47.33 Obstructive sleep apnea (adult) (pediatric) (principal)
CPT/HCPCS: 95811

== ENCOUNTER → 2019-02-04 13:00 | Outpatient (CLI) | payer MEDICARE, SELFPAY ==
[2018-11-14 13:54] VITALS: BMI 26.6
== END ==
PROVIDERS: Family Provider Family Medicine; PCP Family Medicine; Referring Provider Nurse Practitioner Family; Visit Provider Nurse Practitioner Family
DX: G47.33 Obstructive sleep apnea (adult) (pediatric) (principal)

== ENCOUNTER → 2019-10-04 09:02 | Outpatient (CLI) | payer MEDICARE, SELFPAY ==
[2019-06-06 15:45] VITALS: BMI 27.3
--- NOTE | 2019-10-04 09:08 | ECHOD_ITS ---
Reason For Study: SMITH Procedure This was a 2D Doppler, Color Flow transthoracic echocardiogram. The exam was of adequate technical quality. Exam performed in department. Left Ventricle Normal LV size. Left ventricular systolic function is normal. The estimated ejection fraction is 60 %. No regional wall motion abnormalities noted. Right Ventricle Normal RV size. Normal systolic function. Atria The left atrium is mildly enlarged. Normal right atrium. No doppler evidence for ASD. Mitral Valve There is no mitral annular calcification. Normal mitral valve. Mild (1+) mitral valve insufficiency. Tricuspid Valve Normal tricuspid valve. Mild to moderate (1-2+) eccentric tricuspid valve insufficiency. Right ventricular systolic pressure estimated to be 32 mmHg. Aortic Valve Trisinus/trileaflet aortic valve. Mild diffuse aortic valve thickening. Mild focal aortic valve calcification. Aortic sclerosis, no stenosis. Mild (1+) aortic valve insufficiency. Pulmonic Valve The pulmonic valve is not well visualized. Trivial pulmonic valve insufficiency. Great Vessels Normal sized aortic root. Calcified aortic root. Pericardium/Pleural No pericardial effusion. MMode/2D Measurements & Calculations LVIDd: 4.0 cm IVSd: 0.87 cm Ao root diam: 3.3 cm LVIDs: 2.6 cm LVPWd: 0.93 cm RVDd: 3.4 cm FS: 34.0 % LAV(MOD-bp): 62.2 ml LA A4 area: 19.8 cm2 LA dimension(2D): 4.5 cm LAV(MOD-bp) Indexed: 38.1 ml/m2 LAV(MOD-sp2): 69.6 ml LAV(MOD-sp4): 56.0 ml RA A4 area: 15.8 cm2 Time Measurements MV dec time: 0.18 sec Doppler Measurements & Calculations MV E max david: 74.8 cm/sec Lat Peak E' David: 10.5 cm/sec Med Peak E' David: 4.1 cm/sec MV A max david: 54.0 cm/sec E/E' lat: 7.2 E/E' med: 18.4 MV E/A: 1.4 Ao V2 max: 154.5 cm/sec AI max david: 390.3 cm/sec LV V1 max: 112.8 cm/sec Ao max P.6 mmHg AI max P.1 mmHg LV V1 max P.1 mmHg AI dec slope: 181.7 cm/sec2 AI P1/2t: 629.1 msec PA V2 max: 89.4 cm/sec PI end-d david: 136.0 cm/sec TR max david: 269.1 cm/sec TR max P.0 mmHg Interpretation Summary Left ventricular systolic function is normal. The estimated ejection fraction is 60 %. The left atrium is mildly enlarged. Mild (1+) mitral valve insufficiency. Mild to moderate (1-2+) eccentric tricuspid valve insufficiency. Aortic sclerosis, no stenosis. Mild (1+) aortic valve insufficiency. Trivial pulmonic valve insufficiency. Calcified aortic root. Right ventricular systolic pressure estimated to be 32 mmHg. Transmitral diastolic flow velocities suggest diastolic dysfunction (pseudonormal pattern). Ordering Physician: Edda Hairston/Antonio Dacosta Referring Physician: DYLAN OLIVO Performed By: Petrona Sen, MARTINE, RVT
== END ==
PROVIDERS: PCP Family Medicine; Referring Provider Physician Assistant Medical; Visit Provider Physician Assistant Medical
DX: I51.81 Takotsubo syndrome (principal); R06.00 Dyspnea, unspecified
CPT/HCPCS: 93306

== ENCOUNTER → 2019-10-08 16:09 | Outpatient (CLI) | payer MEDICARE, SELFPAY ==
[2019-06-06 15:45] VITALS: BMI 27.3
[2019-10-08 16:23] LABS: Hematocrit 34.1 % (37-47); Hemoglobin 11.2 g/dL (12.0-15.0); Mean Corp Hgb Conc 32.8 g/dL (32-36); Mean Corpuscular Hgb 30.2 pg (27.0-32.0); Mean Corpuscular Volume 91.9 fL (81-99); Platelet Count 151 K/mm3 (150-450); RBC Distribution Width CV 12.7 % (11.6-14.6); RBC Distribution Width SD 42.7 fl (35.1-43.9); Red Blood Count 3.71 M/mm3 (4.2-5.4); White Blood Count 5.2 K/mm3 (4.4-11.0)
[2019-10-08 17:07] LABS: Anion Gap 5 (5-15); BUN 28 mg/dL (7-18); BUN/Creat Ratio 26.4 RATIO (10-20); Calcium,Total 8.9 mg/dL (8.5-10.1); Chloride 109 mmol/L (98-107); Creatinine, Serum 1.06 mg/dL (0.55-1.02); EST Glomerular Filtration Rate 53 mL/min (>60); Est Glom Filt Rate - Afr Amer 64 mL/min (>60); Glucose 110 mg/dL (74-106); Sodium Level 143 mmol/L (136-145); T4 Total, Thyroxin 8.4 ug/dL (4.8-13.9); Thyroid Stim Hormone (TSH) 2.22 uIU/mL (0.358-3.74)
== END ==
PROVIDERS: PCP Family Medicine; Referring Provider Internal Medicine Cardiovascular Disease; Visit Provider Internal Medicine Cardiovascular Disease
DX: I25.10 Atherosclerotic heart disease of native coronary artery without angina pectoris (principal); R53.83 Other fatigue; Z86.2 Personal history of diseases of the blood and blood-forming organs and certain disorders involving the immune mechanism
CPT/HCPCS: 36415; 80048; 84436; 84443; 85027

== ENCOUNTER → 2019-11-26 06:48 | Outpatient (CLI) | payer MEDICARE, SELFPAY ==
[2019-06-06 15:45] VITALS: BMI 27.3
--- NOTE | 2019-11-26 08:51 | STRESSREP_ITS ---
Stress Test Report Date: 11-26-2019 Procedure: Exercise tolerance test/imaging study Indications: Shortness of breath/dyspnea; fatigue; stress-induced cardiomy opathy/Takotsubo syndrome Consent: Per the patient Procedure: The patient exercised on a Modified Fer protocol for 5 minutes and 45 seconds completing Stage I and 2 minutes and 45 seconds of Stage II achieving a peak heart rate of 120 bpm (84 % predicted maximal heart rate) with a peak blood pressure 150/68 mmHg and a peak MET capacity of 3 METs. The baseline ECG demonstrated sinus bradycardia. The peak exercise ECG demonstrated somatic/motion artifact with no obvious ECG changes. There was a rare to occasional PACs during recovery and an isolated ventricular triplet during recovery. The functional capacity was considered decreased. There was no complaint of chest discomfort during exercise or recovery. The examination was discontinued secondary to dyspnea. Impression: 1. Technically adequate (percent predicted maximal heart rate greater than 85%) exercise tolerance test 2. Peak exercise ECG with somatic/motion artifact with no obvious ECG changes 3. There was a rare to occasional PAC during recovery and an isolated ventricular triplet during recovery 4. Nuclear images pending Myocardial perfusion imaging study: Technique: The patient was injected with 11.7 mCi of technetium 99m Cardiolite and subsequently rest SPECT Cardiolite nuclear imaging was obtained in the horizontal long, vertical long, and short axis views. The patient exercised on a Modified Fer protocol for 5 minutes and 45 seconds completing Stage I and 2 minutes and 45 seconds of Stage II achieving a peak heart rate of 120 bpm (84 % predicted maximal heart rate) with a peak blood pressure 150/68 mmHg and a peak MET capacity of 3 METs. The patient was injected with 31.8 mCi of technetium 99m Cardiolite and subsequently stress SPECT Cardiolite nuclear imaging was obtained in the horizontal long, vertical long, and short axis views. A gated Cardiolite study at peak stress was obtained. Interpretation: Rest and stress SPECT Cardiolite nuclear imaging status post realignment, jovanny lization, and attenuation correction, demonstrates the appearance of relative uniform tracer uptake and myocardial perfusion appearing within normal limits. There is end systolic thickening and brightening. The gated Cardiolite study demonstrates myocardial thickening and inward wall motion. The reported LVEF is 80 %. Impression: 1. Rest and stress SPECT Cardiolite nuclear imaging demonstrate relative uniform tracer uptake and myocardial perfusion appearing within normal limits. 2. The gated Cardiolite study reports an LVEF of 80 %. This note was generated with [employer] Zebra[employer] software. It may contain incorrect words, spelling, and punctuation that were not noted in checking the note before signing.
== END ==
PROVIDERS: PCP Family Medicine; Referring Provider Physician Assistant Medical; Visit Provider Physician Assistant Medical
DX: R06.09 Other forms of dyspnea (principal); R53.83 Other fatigue; I25.10 Atherosclerotic heart disease of native coronary artery without angina pectoris; I51.81 Takotsubo syndrome; I10 Essential (primary) hypertension
CPT/HCPCS: 78452; 93017; A9500; A4216

== ENCOUNTER → 2020-03-13 17:09 | Outpatient (CLI) | payer MEDICARE, SELFPAY ==
[2020-02-25 11:43] VITALS: BMI 24.5
--- NOTE | 2020-03-13 17:26 | MRI_ITS ---
STUDY: MRI BRAIN WITH AND WITHOUT CONTRAST REASON FOR EXAM: Female, 79 years old. parkinson''s disease -- off balance, fatigue , hx head trauma / laceration 3 years ago , sx since then TECHNIQUE: Standardized multiplanar fat and water weighted pulse sequences were obtained. IV 13cc dotarem was administered for the contrast portion of the examination. COMPARISON: 12/12/2017 FINDINGS: There is mild cerebral atrophy with widening of the extra-axial spaces and ventricular dilatation. There are a limited number of small white matter hyperintensities, distributed throughout the deep white matter tracts of the cerebral hemispheres, consistent with mild chronic white matter ischemic changes. There is no evidence for recent intracranial ischemia or other cause of cytotoxic edema on diffusion weighted imaging (DWI). Normal T2* images of the brain without demonstrated susceptibility artifact. There is no demonstrated hemosiderin stain. Midbrain iron stores are depleted consistent with Parkinson''s disease. Normal bilateral basal ganglia. Normal thalami. There is no extra-axial fluid accumulation. Normal flow voids within the major intracranial circulation suggesting patency by spin echo criteria. Normal venous enhancement. There is no enhancing intra-axial or extra-axial abnormality. There is enlargement of the sella turcica with increased CSF within the sella and flattening of the pituitary gland consistent with an empty sellar syndrome. Normal infundibular stalk, hypothalamus, and optic chiasm. Normal tectal plate and pineal gland. Normal midbrain, cari and medulla. Normal cerebellum. Normal basal cisterns. Normal bilateral temporal bones. Normal bilateral internal auditory canals. No demonstrated orbital abnormality, within the constraints of a routine brain study. Normal visualized paranasal sinuses. Normal calvarium and skull base. Normal visualized soft tissue structures. Normal visualized upper cervical spine. MRI/Brain W/WO Contrast IMPRESSION: Involutional changes of the brain, as described above. Electronically Signed: Raf Oneil MD at 9:52 EDT Tel , Service support ,
[2020-03-13 17:56] LABS: CREATININE FINGERSTICK 0.9 mg/dL (0.55-1.02); EGFR FINGERSTICK > 60.0000 mL/min (>60)
== END ==
PROVIDERS: PCP Family Medicine; Referring Provider Psychiatry & Neurology Neurology; Visit Provider Psychiatry & Neurology Neurology
DX: G20 Parkinson's disease (principal)
CPT/HCPCS: 70553; A9575

== ENCOUNTER → 2020-03-23 11:48 | Outpatient (CLI) | payer MEDICARE, SELFPAY ==
[2020-02-25 11:43] VITALS: BMI 24.5
[2020-03-23 12:35] LABS: Hematocrit 36.6 % (37-47); Hemoglobin 11.8 g/dL (12.0-15.0); Mean Corp Hgb Conc 32.2 g/dL (32-36); Mean Corpuscular Hgb 29.9 pg (27.0-32.0); Mean Corpuscular Volume 92.7 fL (81-99); Mean Platelet Vol. 10.8 fl (6.2-12.0); Platelet Count 183 K/mm3 (150-450); RBC Distribution Width CV 12.4 % (11.6-14.6); RBC Distribution Width SD 42.3 fl (35.1-43.9); Red Blood Count 3.95 M/mm3 (4.2-5.4); White Blood Count 5.4 K/mm3 (4.4-11.0)
[2020-03-23 13:17] LABS: Vitamin B12 588 pg/mL (211-911)
[2020-03-23 14:28] LABS: ALB/GLOB Ratio 0.9 RATIO (0.9-2.4); AST(SGOT) 20 U/L (15-37); Alanine Aminotransfer ALT/SGPT 25 U/L (13-56); Albumin, Serum 3.4 g/dL (3.2-5.0); Alkaline Phosphatase 90 U/L (45-117); Anion Gap 4 (5-15); BUN 21 mg/dL (7-18); BUN/Creat Ratio 20.2 RATIO (10-20); Calcium,Total 9.2 mg/dL (8.5-10.1); Chloride 108 mmol/L (98-107); Creatinine, Serum 1.04 mg/dL (0.55-1.02); EST Glomerular Filtration Rate 54 mL/min (>60); Est Glom Filt Rate - Afr Amer 66 mL/min (>60); Globulin 3.6 g/dL (2.2-4.2); Glucose 88 mg/dL (74-106); Potassium 4.2 mmol/L (3.5-5.1); Sodium Level 142 mmol/L (136-145); Thyroid Stim Hormone (TSH) 2.98 uIU/mL (0.358-3.74)
[2020-03-24 14:47] LABS: Free Kappa Light Chains 29.2 mg/L (3.3-19.4); Free Lambda Light Chains 19.2 mg/L (5.7-26.3)
== END ==
PROVIDERS: PCP Family Medicine; Referring Provider Psychiatry & Neurology Neurology; Visit Provider Psychiatry & Neurology Neurology
DX: G62.9 Polyneuropathy, unspecified (principal); Z86.2 Personal history of diseases of the blood and blood-forming organs and certain disorders involving the immune mechanism
CPT/HCPCS: 80053; 82607; 82746; 83883; 84443; 85027

== ENCOUNTER → 2020-03-26 11:44 | Outpatient (CLI) | payer MEDICARE, SELFPAY ==
[2020-02-25 11:43] VITALS: BMI 24.5
[2020-03-26 13:22] LABS: Ferritin 50 ng/mL (8-252); Iron 63 ug/dL (50-170)
[2020-03-30 14:07] LABS: Albumin 3.6 g/dL (2.9-4.4); Alpha-1-Globulins 0.2 g/dL (0.0-0.4); Alpha-2-Globulins 0.7 g/dL (0.4-1.0); Immunoglobulin A 272 mg/dL (64-422); Immunoglobulin G 1016 mg/dL (586-1602); Immunoglobulin M 203 mg/dL (26-217); PROEL- TOTAL PROTEIN 6.5 g/dL (6.0-8.5)
== END ==
PROVIDERS: PCP Family Medicine; Referring Provider Psychiatry & Neurology Neurology; Visit Provider Psychiatry & Neurology Neurology
DX: G62.9 Polyneuropathy, unspecified (principal); Z86.2 Personal history of diseases of the blood and blood-forming organs and certain disorders involving the immune mechanism
CPT/HCPCS: 36415; 82728; 82784; 83540; 84165; 86334; 86335

== ENCOUNTER 2020-07-01 11:30 | Outpatient (RCR) | payer MEDICARE, SELFPAY ==
[2020-02-25 11:43] VITALS: BMI 24.5
--- NOTE | 2020-03-31 09:03 | HP.PTEVAL_ITS ---
Patient's Visit Information ANGELI NICHOLAS is a 79 year old F referred to Physical Therapy by Dr. Nelson Ny MD with a diagnosis of PD, Polyneuropathy, LBP. Date of Evaluation: 03/31/20 Physical Therapist: CHANDRAKANT De La Cruz - Visit Plan Frequency: 2x /Week Duration: 2 Months Plan: 2X/ week for 8 weeks for dual tasking, gait mechanics, postural exercises, balance, sit to stands with HEP - Subjective Pt did not go back to [facility] after the schools shut down cause of COVID. She was diagnosed with PD this month with a Neurologist and he put on meds but has not been on it for more than a week and not sure if it is working. She is liriano ving trouble getting out of a chair, has to hold on the railing to go up and down the stairs, picking up her feet, has to walk slow. She has had no falls since tripping at [facility] and had to have 60 hanna in her head (3 years ago in Apr). She reports that her memory is pretty good. She has no issues with swallowing. She has some tremors in her R hand. She is has a soft voice and has to work on projecting her voice. She still drives. She does not go into stores. She has some back pain but does stretches and it goes away. She is more tired since she started the meds. - Pain back pain Pain Intensity (Out of 10): 0 - Objective Gait: Walks with decreased heel to to gait pattern (caugt toe at leat 3X during eval with gait), short stride, flexed trunk, decreased arm swing. Occ veering. LE MMT: B hip flex 4/5, B knee ext 4/5, B knee flex 4/5, B hip abd in seated 4/5, B hip add in seated 4/5. FGA 13. Sit to stand: able to get up with use of arms on the chair seat on 2nd attempt. Pt struggles with standing opp arm and leg sequence ( usualyy steps with L arm and L leg every time). Struggles with side stepping and then turning 180 degrees.... had some freezing and likes to spin on her heels - Balance Scores Functional Gait Assessment Score: 13 % Disability: 56.6700 - Goals Goal 1:: I HEP Goal Time Frame: 4-6 Weeks Goal 2:: Increase FGA by 5 points to decrease fall risk ( score was Goal Time Frame: 6-8 Weeks Goal 3:: Be able to do opp arm and leg in standing 2 X 10 without messing up sequence Goal Time Frame: 6-8 Weeks Goal 4:: Be able to walk 200 feet with good step length, heel to toe gait pattern, and upright posture Goal Time Frame: 6-8 Weeks Goal 5:: Be able to turn 180 degrees without dragging feet and without hesitation Goal Time Frame: 6-8 Weeks - Rehabilitation Potential Rehabilitation Potential: Good - Anticipated Interventions Patient/Client Instruction: Educate patient on: Condition, Plan of Care For the Purpose of:: To decrease pain, To increase ROM, To improve nutrient delivery to tissue, To improve muscle performance and motor function, To improve ability to perform ADL's, To increase tolerance to activity/condition/position, To improve performance and independence with ADL's, To decrease level of supervision to perform tasks, To improve ability of physical actions for home/community/work/leisure, To improve gait and locomotor functions, To increase flexibility/ROM, To improve balance, To improve safety with gait, To assume or resume ADL's Therapeutic Exercise to Include: Strength training, Endurance training, Balance training, Body mechanics, Postural training, Flexibilty training, Gait and locomotor training, Neuromotor development, Active ROM, Dynamic Lumbar Stabilization For the Purpose of:: To decrease pain, To improve nutrient delivery to tissue, To increase oxygenation perfusion, To improve muscle performance and motor function, To improve ability to perform ADL's, To increase tolerance to activity/condition/position, To improve performance and independence with ADL's, To decrease level of supervision to perform tasks, To improve ability of physical actions for home/community/work/leisure, To improve gait and locomotor functions, To improve health of tissue, To decrease soft tissue restriction, To increase flexibility/ROM, To improve endurance, To improve balance, To improve safety with gait, To improve safety For the Purpose of:: To improve gait and locomotor functions, To improve safety with gait Thank you for the opportunity to evaluate your patient. For Medicare and Medicare HMO plans, please review the plan of care and approve it. It will need to be FAXED BACK to us at [phone] for Medicare purposes. For Medicare only, by signing this I certify the plan of care. Please let me know if there are questions or concerns regarding this plan of care. Physician Signature: Date:
--- NOTE | 2020-04-29 12:02 | HP.PTREVAL ---
Dr. Nelson Ny MD, It has been my pleasure to treat ANGELI NICHOLAS over the last 10 visits for PD, Polyneuropathy, LBP. Please see the progress note below for an update on the physical therapy plan of care! Subjective: Pt feels that she still needs work on standing up straight, turning her whole body with her feet. Her whole body feels weak. Standing activities bother her and sit to stand activities bother her Objective/Function: FGA 16. Gait: walks with increased knee flexion and decreased heel to toe and increase flexion of trunk. Stairs: up and down with 2 hand rails with some increased LE weakness present. Posture: flexed trunk, increased knee flexion Plan Plan: 2X/ week for 4 additional weeks for dual tasking, gait mechanics, postural exercises, balance, sit to stands with HEP Goals Goal 1:: I HEP Goal Time Frame: 4-6 Weeks Goal Progress: Progressing Goal 2:: Increase FGA by 5 points to decrease fall risk ( score was 13) Goal Time Frame: 6-8 Weeks Goal Progress: Progressing Goal 3:: Be able to do opp arm and leg in standing 2 X 10 without messing up sequence Goal Time Frame: 6-8 Weeks Goal Progress: Progressing Goal 4:: Be able to walk 200 feet with good step length, heel to toe gait pattern, and upright posture Goal Time Frame: 6-8 Weeks Goal 5:: Be able to turn 180 degrees without dragging feet and without hesitation Goal Time Frame: 6-8 Weeks Goal Progress: Goal Met Goal 6:: Be able to walk with heel to toe gait pattern with increased knee extension and good trunk posture 200 feet without verbal cues. Anticipated Interventions Patient/Client Instruction: Educate patient on: Condition, Plan of Care For the Purpose of:: To decrease pain, To increase ROM, To improve nutrient delivery to tissue, To improve muscle performance and motor function, To improve ability to perform ADL's, To increase tolerance to activity/condition/position, To improve performance and independence with ADL's, To decrease level of supervision to perform tasks, To improve ability of physical actions for home/community/work/leisure, To improve gait and locomotor functions, To increase flexibility/ROM, To improve balance, To improve safety with gait, To assume or resume ADL's Therapeutic Exercise to Include: Strength training, Endurance training, Balance training, Body mechanics, Postural training, Flexibilty training, Gait and locomotor training, Neuromotor development, Active ROM, Dynamic Lumbar Stabilization For the Purpose of:: To decrease pain, To improve nutrient delivery to tissue, To increase oxygenation perfusion, To improve muscle performance and motor function, To improve ability to perform ADL's, To increase tolerance to activity/condition/position, To improve performance and independence with ADL's, To decrease level of supervision to perform tasks, To improve ability of physical actions for home/community/work/leisure, To improve gait and locomotor functions, To improve health of tissue, To decrease soft tissue restriction, To increase flexibility/ROM, To improve endurance, To improve balance, To improve safety with gait, To improve safety For the Purpose of:: To improve gait and locomotor functions, To improve safety with gait Please do not hesitate to contact me at [phone] by phone or if you have questions or concerns regarding this new plan of care! Sincerely, Eileen Zacarias, MPT
--- NOTE | 2020-09-30 10:20 | HP.PT.NRP ---
ANGELI NICHOLAS was seen in my office for initial evaluation on 03/31/20. The following Plan of Care was established for this patient: Initial Frequency: 2x /Week Initial Duration: 2 Months Patient/Client Instruction: Educate patient on: Condition, Plan of Care For the Purpose of:: To decrease pain, To increase ROM, To improve nutrient delivery to tissue, To improve muscle performance and motor function, To improve ability to perform ADL's, To increase tolerance to activity/condition/position, To improve performance and independence with ADL's, To decrease level of supervision to perform tasks, To improve ability of physical actions for home/community/work/leisure, To improve gait and locomotor functions, To increase flexibility/ROM, To improve balance, To improve safety with gait, To assume or resume ADL's Therapeutic Exercise to Include: Strength training, Endurance training, Balance training, Body mechanics, Postural training, Flexibilty training, Gait and locomotor training, Neuromotor development, Active ROM, Dynamic Lumbar Stabilization For the Purpose of:: To decrease pain, To improve nutrient delivery to tissue, To increase oxygenation perfusion, To improve muscle performance and motor function, To improve ability to perform ADL's, To increase tolerance to activity/condition/position, To improve performance and independence with ADL's, To decrease level of supervision to perform tasks, To improve ability of physical actions for home/community/work/leisure, To improve gait and locomotor functions, To improve health of tissue, To decrease soft tissue restriction, To increase flexibility/ROM, To improve endurance, To improve balance, To improve safety with gait, To improve safety For the Purpose of:: To improve gait and locomotor functions, To improve safety with gait This patient was last seen in our office 07/01/20. Pertinent comments regarding their Physical therapy will appear below: DC PT At this point I will be discontinuing this patient from physical therapy. I would be happy to see this patient again in the future if found appropriate by the physician. Thank you! Eileen Zacarias, MPT
== END 2020-07-01 19:00 | disposition home or self-care (01) ==
LOC: PT 11:30
PROVIDERS: PCP Family Medicine; Referring Provider Psychiatry & Neurology Neurology; Visit Provider Psychiatry & Neurology Neurology
DX: G20 Parkinson's disease (principal); G62.9 Polyneuropathy, unspecified; M54.5 Low back pain
CPT/HCPCS: 97035; 97110; 97140; 97161; 97530

== ENCOUNTER 2020-07-09 09:52 | Outpatient (RCR) | payer MEDICARE, SELFPAY ==
[2020-03-31 12:04] VITALS: BMI 24.5
== END 2020-07-09 23:59 ==
LOC: IMMUN 09:52
PROVIDERS: PCP Family Medicine; Visit Provider Family Medicine
DX: Z23 Encounter for immunization (principal)
CPT/HCPCS: 0011A; 0012A

== ENCOUNTER → 2020-12-29 11:46 | Outpatient (CLI) | payer MEDICARE, SELFPAY ==
[2020-12-29 11:13] VITALS: BMI 25.0
[2021-01-01 14:09] LABS: Free Kappa Light Chains 30.9 mg/L (3.3-19.4); Free Lambda Light Chains 15.6 mg/L (5.7-26.3)
== END ==
PROVIDERS: PCP Family Medicine; Referring Provider Nurse Practitioner Family; Visit Provider Nurse Practitioner Family
DX: G62.9 Polyneuropathy, unspecified (principal)
CPT/HCPCS: 36415; 83883; 86335

== ENCOUNTER 2021-08-03 10:05 | Outpatient (CLI) | payer MEDICARE, SELFPAY | END 2021-08-03 23:59 | disposition home or self-care (01) | LOC: PSN 10:07 | PROVIDERS: PCP Family Medicine; Referring Provider Physician Assistant Medical; Visit Provider Physician Assistant Medical | DX: I47.1 Supraventricular tachycardia (principal) | CPT/HCPCS: 93225; 93226 ==

== ENCOUNTER → 2022-04-22 | Outpatient (CLI) | payer MEDICARE, SELFPAY ==
[2022-04-22 11:37] LABS: AST(SGOT) 19 U/L (15-37); Alanine Aminotransfer ALT/SGPT 24 U/L (13-56); Albumin, Serum 3.6 g/dL (3.2-5.0); Alkaline Phosphatase 107 U/L (45-117); Bilirubin, Direct 0.14 mg/dL (0.00-0.30); Cholesterol 189 mg/dL (200); Globulin 3.4 g/dL (2.2-4.2); High Density Lipoprotein 70 mg/dL; Triglycerides 50 mg/dL; Very Low Density Lipoprotein 10 mg/dL (5-40)
== END | disposition home or self-care (01) ==
LOC: LAB 10:25
PROVIDERS: PCP Family Medicine; Visit Provider Internal Medicine Cardiovascular Disease
DX: E78.00 Pure hypercholesterolemia, unspecified (principal)
CPT/HCPCS: 36415; 80061; 80076

== ENCOUNTER → 2022-05-19 | Outpatient (CLI) | payer MEDICARE, SELFPAY ==
--- NOTE | 2022-05-19 10:52 | MRI_ITS ---
HISTORY: Osteoarthritis. Back pain, bilateral hip pain times couple of years. TECHNIQUE: Multiplanar and multisequence MR images of the lumbar spine were obtained without intravenous contrast. 127 images. COMPARISON: 02/08/2013. FINDINGS: VERTEBRAE: Vertebral body heights maintained. Mild degenerative endplate changes without significant significant bone marrow signal abnormality. ALIGNMENT: Minimal 2 mm anterolisthesis of L5-S1. CONUS: Normal morphology and position of the conus medullaris at L2. INTERVERTEBRAL DISCS: Partial fusion across the T10-11 intervertebral disc space. T12-L1: No significant posterior disc protrusion, central canal stenosis, or foraminal narrowing based on the sagittal images. L1-2: No significant posterior disc protrusion, central canal stenosis, or foraminal narrowing. L2-3: Minimal disc bulge with facet arthropathy. No significant central canal stenosis or foraminal narrowing, similar to prior. L3-4, L4-5: Increased size of mild disc bulges with facet arthropathy resulting in minimal narrowing of the thecal sac and mild bilateral foraminal narrowing L5-S1: No significant posterior disc protrusion, central canal stenosis, or foraminal narrowing. Facet arthropathy noted. SOFT TISSUES: No paraspinal fluid collection. Small renal cysts. MRI/Spine Lumbar (Routine) IMPRESSION: Mild progression of multilevel degenerative disc disease without significant spinal canal stenosis. Mild bilateral foraminal narrowing as above. Slightly increased minimal anterolisthesis of L5-S1. Electronically Signed: Tayler Musa MD at 15:43 EST ,
== END | disposition home or self-care (01) ==
LOC: MRI 10:46
PROVIDERS: PCP Family Medicine; Referring Provider Orthopaedic Surgery; Visit Provider Orthopaedic Surgery
DX: M51.37 Other intervertebral disc degeneration, lumbosacral region (principal); M54.59 Other low back pain
CPT/HCPCS: 72148

== ENCOUNTER 2022-06-09 17:46 | Emergency (ER) | payer MEDICARE, SELFPAY ==
[2022-06-09 17:47] VITALS: BP 175/95; PULSE 103; RESP 14; TEMP 36.6; O2SAT 99; BMI 22.1
--- NOTE | 2022-06-09 18:26 | EX.ED.DYSGE1 ---
HPI History of Present Illness Chief Complaint: Dizziness Informant: patient Onset/Context/Timing Onset: Today and Hours (3) Context: Sudden Onset Timing: Continuous Quality: Lightheaded Location: Generalized Worsened by: Walking Relieved by: Nothing Associated Symptoms Associated Symptoms: Tinnitus Narrative Narrative: Patient presents with dizziness that began today. Patient states it began rather suddenly approximately 3 hours prior to arrival. Patient states it has been constant. Patient describes her dizziness as a lightheaded feeling. Patient states she feels like she might pass out. Patient states it is generalized. Patient states it is worse with any walking. Patient states nothing makes it better. Patient states she started with some tinnitus prior to the dizziness. Patient admits to nausea but denies any vomiting. Patient denies any fevers or chills. Patient denies any hearing changes. [facility] Medical History (Updated 06/09/22 @ 20:[address] Juan Avina, ) Abnormal stress test Acute respiratory failure with hypoxia Acute systolic (congestive) heart failure BRENT (acute kidney injury) Anemia Atrial tachycardia Back pain Cardiopulmonary arrest Chest pain Contusion of right hand Contusion of right knee DDD (degenerative disc disease), lumbar Difficulty balancing Essential hypertension Fatigue History of anemia Laceration of lip without foreign body Limb weakness NSTEMI (non-ST elevated myocardial infarction) Other chest pain Other care home (current) drug therapy Pure hypercholesterolemia Segmental and somatic dysfunction of cervical region Segmental and somatic dysfunction of lumbar region Segmental and somatic dysfunction of thoracic region Shoulder pain SOB (shortness of breath) Takotsubo cardiomyopathy Tooth fracture Unspecified fall, initial encounter Wrist pain, left Home Medications cholecalciferol (vitamin D3) 50 mcg (2,000 unit) tablet 50 mcg PO DAILY 07/27/21 [History Last Taken Unknown] levothyroxine 50 mcg tablet 50 mcg PO DAILY 07/27/21 [History Last Taken Unknown] amlodipine 2.5 mg tablet 2.5 mg PO DAILY #90 tabs 11/19/21 [Rx Last Taken Unknown] lisinopril 10 mg tablet 10 mg PO DAILY #90 tabs 11/19/21 [Rx Last Taken Unknown] carbidopa 25 mg-levodopa 100 mg tablet (Sinemet) 1 tab PO TID #270 tabs 12/07/21 [Rx Last Taken Unknown] multivitamin with minerals-folic acid 120 mcg chewable tablet (Centrum Adult 50 Plus Fresh-Fruity) 1 tab PO DAILY 04/20/22 [History Last Taken Unknown] vitamins A,C,A-hbrr-tonxsv 4,296 mcg-226 mg-90 mg capsule (PreserVision AREDS) 1 cap PO BID 04/20/22 [History Last Taken Unknown] diazepam 2 mg tablet 2 mg PO TID PRN PRN Vertigo #10 TABLETS 06/09/22 [Rx Last Taken Unknown] Allergy/AdvReac Type Severity Reaction Status Date / Time codeine Allergy Other Verified 06/09/22 17:47 oxycodone HCl Allergy Other Verified 06/09/22 17:47 [From OxyContin] Family History Father , age 91 Cancer Hypertension Aunt Diabetes Breast cancer 2 aunts Grandfather Diabetes Parkinson's disease Mother Hypertension Surgical History History of appendectomy History of section History of hysterectomy History of left heart catheterization (09/15/17) History of open reduction and internal fixation (ORIF) procedure History of total left knee replacement Social History Smoking Status: Never smoker alcohol intake: never caffeine: Yes Type: tea Number of servings: 1 ROS ROS ED Constitutional Constitutional ED: Denies chills or fever(s) Eyes Eyes: Denies blurry vision or change in vision ENT ENT ED: Denies rhinorrhea or sore throat Cardiovascular Cardiovascular: Denies chest pain or palpitations Respiratory/Chest Respiratory/Chest: Denies cough or dyspnea Gastrointestinal Gastrointestinal: Reports nausea; Denies vomiting Genitourinary Genitourinary ED: Denies dysuria or hematuria Musculoskeletal Musculoskeletal: Denies back pain or neck pain Integumentary Denies abscess or rash Neurologic Neurologic: Denies headache(s) or weakness Allergic/Immunologic Allergic/Immunologic ED: Denies mouth swelling or urticaria EXAM Physical Exam Const Vital Signs: 06/09/22 17:47 06/09/22 17:56 06/09/22 19:36 Temperature 98 F Temperature Source Temporal Pulse Rate 103 H Pulse Rate [Lying] 89 Pulse Rate [Sitting (for 1 minute prior to obtaining)] 90 Pulse Rate [Standing (for 1 minute prior to obtaining)] 93 Respiratory Rate 14 Respiratory Effort Normal Non-Labored Respiratory Pattern Normal Blood Pressure 175/95 H Blood Pressure [Lying] 163/77 H Blood Pressure [Sitting (for 1 minute prior to obtaining)] 161/87 H Blood Pressure [Standing (for 1 minute prior to obtaining)] 157/87 H Blood Pressure Mean 121 Blood Pressure Mean [Lying] 105 Blood Pressure Mean [Sitting (for 1 minute prior to obtaining)] 111 Blood Pressure Mean [Standing (for 1 minute prior to obtaining)] 110 Pulse Ox 99 Oxygen Delivery Method Room Air 06/09/22 19:47 Temperature Temperature Source Pulse Rate 93 Pulse Rate [Lying] Pulse Rate [Sitting (for 1 minute prior to obtaining)] Pulse Rate [Standing (for 1 minute prior to obtaining)] Respiratory Rate 20 H Respiratory Effort Respiratory Pattern Blood Pressure 168/87 H Blood Pressure [Lying] Blood Pressure [Sitting (for 1 minute prior to obtaining)] Blood Pressure [Standing (for 1 minute prior to obtaining)] Blood Pressure Mean 114 Blood Pressure Mean [Lying] Blood Pressure Mean [Sitting (for 1 minute prior to obtaining)] Blood Pressure Mean [Standing (for 1 minute prior to obtaining)] Pulse Ox 99 Oxygen Delivery Method Room Air Positive well nourished and well developed General Appearance ED: well developed and NAD HEENT Reports moist mucous membranes Eyes PERRL and EOMs intact bilaterally Eyes Narrative: There is no nystagmus noted. Neck supple and no JVD Resp normal respiratory effort and clear to auscultation bilaterally Cardio regular rate Rhythm: abnormal rhythm ectopic beats GI normal to inspection, nondistended, normoactive bowel sounds and non-tender Palpation: soft Extremity normal to inspection General Extremety ED: Negative for edema or tenderness General Extremity: Negative for edema Neuro oriented x3, CN's II-XII intact bilaterally and no sensory deficits noted Sensorium / Orientation: alert Motor Exam: strength 5/5 throughout Psych mental status grossly normal Skin no rashes or lesions noted MDM MDM MDM Narrative Medical decision making narrative: Patient was given a dose of Valium here. Differential diagnosis includes vertigo, labyrinthitis, orthostatic hypotension, M?ni?re's disease, electrolyte abnormality, hypoglycemia, and dehydration. CBC will be obtained to assess for leukocytosis and anemia. Basic metabolic profile will be obtained to assess for electrolyte abnormality and renal function. Orthostatic vital signs will be obtained to assess for hydration status. Lab Data Attestation: I reviewed the patient's lab results. Lab results narrative: CBC was reviewed and was within normal limits. Basic metabolic profile was reviewed and will showed a slightly elevated BUN of 26 and a slightly elevated glucose of 137. Urinalysis was reviewed and does not show any evidence of urinary tract infection. Labs: Laboratory Results - last 24 hr 06/09/22 06/09/22 06/09/22 18:42 18:52 18:52 WBC 6.1 RBC 4.09 L Hgb 12.5 Hct 38.6 MCV 94.4 MCH 30.6 MCHC 32.4 RDW Std Deviation 42.7 RDW Coeff of Tom 12.2 Plt Count 182 MPV 11.3 Immature Gran % (Auto) 0.200 Neut % (Auto) 80.2 H Lymph % (Auto) 12.5 L Towner % (Auto) 6.1 Eos % (Auto) 0.5 Baso % (Auto) 0.5 Absolute Neuts (auto) 4.9 Absolute Lymphs (auto) 0.76 L Nucleated RBC % 0 Sodium 144 Potassium 3.9 Chloride 107 Carbon Dioxide 32.0 Anion Gap 5 BUN 26 H Creatinine 0.86 Estim Creat Clear Calc 42.44 Est GFR (MDRD) Af Amer 81 Est GFR (MDRD) Non-Af 67 BUN/Creatinine Ratio 30.1 H Glucose 137 H Calcium 8.9 Urine Color Yellow Urine Clarity Clear Urine pH 7.0 Ur Specific [place] 1.015 Urine Protein 15 H Urine Glucose (UA) NEGATIVE Urine Ketones Negative Urine Occult Blood Negative Urine Nitrite Negative Urine Bilirubin Negative Urine Urobilinogen Normal Ur Leukocyte Esterase Negative Urine RBC 0 SEEN Urine WBC 0 SEEN Ur Squamous Epith Cells 0 SEEN Urine Bacteria 0 SEEN Urine Mucus 0 SEEN Treatment and Re-Evaluation Narrative: Orthostatic vital signs were obtained and were within normal limits. Patient was able to ambulate without difficulty. Patient was feeling better on reevaluation. Patient was given a prescription for a short course of Valium to take as needed for dizziness. Patient was instructed to follow-up with her primary care physician in 5 to 7 days. Patient was instructed return if worse in any way. Patient understood and was agreeable with the plan. All questions were answered. Discharge Plan Triage Chief Complaint: Dizziness ED Provider: Juan Avina Dx/Rx/DC Orders Clinical Impression: Vertigo, Essential hypertension Instructions: ED Vertigo, Unspecified Prescriptions: New diazepam [diazepam] 2 mg tablet 2 mg PO TID PRN PRN (Reason: Vertigo) Qty: 10 0RF No Action levothyroxine 50 mcg tablet 50 mcg PO DAILY cholecalciferol (vitamin D3) 50 mcg (2,000 unit) tablet 50 mcg PO DAILY Centrum Adult 50 Fresh-Fruity 120 mcg tablet,chewable 1 tab PO DAILY PreserVision AREDS 14,320-226-200 lxyx-zt-hatz capsule 1 cap PO BID carbidopa-levodopa [Sinemet] 25-100 mg tablet 1 tab PO TID Qty: 270 1RF amlodipine 2.5 mg tablet 2.5 mg PO DAILY Qty: 90 3RF lisinopril 10 mg tablet 10 mg PO DAILY Qty: 90 3RF Primary Care Provider: Moy Cruz Referrals: Moy Cruz MD [Primary Care Provider] - 5-7 Days Disposition Disposition: Home, Self Care
[2022-06-09] MEDS: diazePAM 5 MG Tablet 2.5 MG PO (18:50)
[2022-06-09 18:54] LABS: Bacteria 0 SEEN /hpf (None Seen); Mucous, Urine 0 SEEN /hpf (<or=2+); Red Blood Cells-Urine 0 SEEN /hpf (0-5); Squamous Epithelial Cells - UA 0 SEEN /hpf (5-10); White Blood Cells 0 SEEN /hpf (0-5)
[2022-06-09 19:01] LABS: Absolute Lymphocyte Count 0.76 X10^3/uL (0.83-4.51); Absolute Neutrophil Count 4.9 X10^3/uL (2.0-7.7); Basophil# 0.03 X10^3/uL; Basophil% 0.5 % (0-1); Eosinophil# 0.03 X10^3/uL; Eosinophils% 0.5 % (0-5); Hematocrit 38.6 % (37-47); Hemoglobin 12.5 g/dL (12.0-15.0); Lymphocyte # 0.76 X10^3/ul (0.83-4.51); Lymphocyte % 12.5 % (19-41); Mean Corp Hgb Conc 32.4 g/dL (32-36); Mean Corpuscular Hgb 30.6 pg (27.0-32.0); Mean Corpuscular Volume 94.4 fL (81-99); Mean Platelet Vol. 11.3 fl (6.2-12.0); Monocyte# 0.37 X10^3/uL; Monocyte% 6.1 % (0-10); NRBC Flagged by Analyzer 0 % (0-5); Neutrophil # 4.87 X10^3/uL (2.7-7.7); Neutrophil % 80.2 % (47-70); Platelet Count 182 K/mm3 (150-450); RBC Distribution Width CV 12.2 % (11.6-14.6); RBC Distribution Width SD 42.7 fl (35.1-43.9); Red Blood Count 4.09 M/mm3 (4.2-5.4); White Blood Count 6.1 K/mm3 (4.4-11.0)
[2022-06-09 19:03] LABS: Color, Urine Yellow (Yellow); Glucose, Dipstick NEGATIVE (Normal); Ketone-Dipstick Negative (Negative); Leukocyte Esterase-Dipstick Negative /ul (Negative); Nitrite-Dipstick Negative (Negative); Occult Blood-Urine Negative /ul (Negative); Protein-Dipstick 15 mg/dl (Negative); Specific Gravity, Urine 1.015 (1.002-1.030); Urine Bilirubin Dipstick Negative (Negative); Urine Clarity Clear (Clear); Urine Urobilinogen Normal (Normal)
[2022-06-09 19:19] LABS: Anion Gap 5 (5-15); BUN 26 mg/dL (7-18); BUN/Creat Ratio 30.1 RATIO (10-20); Calcium,Total 8.9 mg/dL (8.5-10.1); Chloride 107 mmol/L (98-107); Creatinine, Serum 0.86 mg/dL (0.55-1.02); EST Glomerular Filtration Rate 67 mL/min (>60); Est Glom Filt Rate - Afr Amer 81 mL/min (>60); Estimated Creatinine Clearance 42.44 ml/min; Glucose 137 mg/dL (74-106); Potassium 3.9 mmol/L (3.5-5.1); Sodium Level 144 mmol/L (136-145)
[2022-06-09 19:36] VITALS: BP 157/87; BP 161/87; BP 163/77; PULSE 89; PULSE 90; PULSE 93
[2022-06-09 19:47] VITALS: BP 168/87; PULSE 93; RESP 20; O2SAT 99
[2022-06-09 21:00] VITALS: BP 184/89; PULSE 92; PULSE 93; RESP 15; RESP 16; O2SAT 99
== END 2022-06-09 21:25 | disposition home or self-care (01) ==
PROVIDERS: Emergency Provider Emergency Medicine; PCP Family Medicine; Visit Provider Emergency Medicine
DX: R42 Dizziness and giddiness (principal); E86.0 Dehydration; E78.00 Pure hypercholesterolemia, unspecified; R11.0 Nausea; H93.19 Tinnitus, unspecified ear; E16.2 Hypoglycemia, unspecified; I10 Essential (primary) hypertension
CPT/HCPCS: 80048; 81001; 85025; 99285; A4216

== ENCOUNTER → 2022-09-29 | Outpatient (CLI) | payer MEDICARE, SELFPAY ==
[2022-09-29 16:10] LABS: Absolute Lymphocyte Count 1.06 X10^3/uL (0.83-4.51); Absolute Neutrophil Count 4.7 X10^3/uL (2.0-7.7); Basophil# 0.04 X10^3/uL; Basophil% 0.6 % (0-1); Eosinophil# 0.06 X10^3/uL; Eosinophils% 0.9 % (0-5); Hematocrit 39.2 % (37-47); Hemoglobin 12.4 g/dL (12.0-15.0); Lymphocyte # 1.06 X10^3/ul (0.83-4.51); Lymphocyte % 16.6 % (19-41); Mean Corp Hgb Conc 31.6 g/dL (32-36); Mean Corpuscular Hgb 29.8 pg (27.0-32.0); Mean Corpuscular Volume 94.2 fL (81-99); Mean Platelet Vol. 10.8 fl (6.2-12.0); Monocyte# 0.51 X10^3/uL; NRBC Flagged by Analyzer 0 % (0-5); Neutrophil # 4.71 X10^3/uL (2.7-7.7); Neutrophil % 73.7 % (47-70); Platelet Count 192 K/mm3 (150-450); RBC Distribution Width CV 13.1 % (11.6-14.6); RBC Distribution Width SD 44.9 fl (35.1-43.9); Red Blood Count 4.16 M/mm3 (4.2-5.4); White Blood Count 6.4 K/mm3 (4.4-11.0)
[2022-09-29 16:35] LABS: Vitamin B12 508 pg/mL (211-911)
[2022-09-29 16:38] LABS: Erythrocyte Sedimentation Rate 7 mm/hr (0-30)
[2022-09-29 17:31] LABS: ALB/GLOB Ratio 1.1 RATIO (0.9-2.4); AST(SGOT) 17 U/L (15-37); Alanine Aminotransfer ALT/SGPT 21 U/L (13-56); Albumin, Serum 3.7 g/dL (3.2-5.0); Alkaline Phosphatase 102 U/L (45-117); Anion Gap 6 (5-15); BUN 28 mg/dL (7-18); BUN/Creat Ratio 30.2 RATIO (10-20); CRP < 2.90 mg/L (0.0-3.0); Calcium,Total 9.6 mg/dL (8.5-10.1); Chloride 110 mmol/L (98-107); Creatinine, Serum 0.93 mg/dL (0.55-1.02); EST Glomerular Filtration Rate 62 mL/min (>60); Est Glom Filt Rate - Afr Amer 75 mL/min (>60); Free T3 1.9 pg/mL (2.18-3.98); Globulin 3.5 g/dL (2.2-4.2); Glucose 94 mg/dL (74-106); LDH 214 U/L (84-246); Protein, Total 7.2 g/dL (6.4-8.2); Sodium Level 143 mmol/L (136-145); T4 Free Direct 1.16 ng/dL (0.76-1.46); Thyroid Stim Hormone (TSH) 2.23 uIU/mL (0.358-3.74)
[2022-10-03 15:08] LABS: Endomysial Antibody IgA Negative (Negative); Immunoglobulin A 284 mg/dL (64-422); t-Transglutaminase IgA <2 U/mL (0-3)
[2022-10-05 17:08] LABS: Anti-Mitochondrial AB <20.0 Units (0.0-20.0); Beef <0.10 kU/L (Class 0); Chocolate <0.10 kU/L (Class 0); Clam <0.10 kU/L (Class 0); Codfish <0.10 kU/L (Class 0); Corn <0.10 kU/L (Class 0); Egg, White <0.10 kU/L (Class 0); Egg, Whole <0.10 kU/L (Class 0); Milk (Cow) <0.10 kU/L (Class 0); Peanut <0.10 kU/L (Class 0); Pork <0.10 kU/L (Class 0); SCALLOP <0.10 kU/L (Class 0); SESAME SEED <0.10 kU/L (Class 0); Shrimp <0.10 kU/L (Class 0); Soybean <0.10 kU/L (Class 0); Walnut, (Food) <0.10 kU/L (Class 0); Wheat <0.10 kU/L (Class 0)
[2022-10-06 11:09] LABS: Anti-Parietal Cell AB, QN 18.2 Units (0.0-20.0); Immunoglobulin A 284 mg/dL (64-422); Immunoglobulin E 315 IU/mL (6-495); Immunoglobulin G 1073 mg/dL (586-1602); Immunoglobulin M 213 mg/dL (26-217)
== END | disposition home or self-care (01) ==
LOC: LAB 15:44
PROVIDERS: PCP Family Medicine; Referring Provider Internal Medicine Gastroenterology; Visit Provider Internal Medicine Gastroenterology
DX: R11.0 Nausea (principal)
CPT/HCPCS: 36415; 80053; 82607; 82746; 82784; 82785; 83516; 83615; 84439; 84443; 84481; 85025; 85652; 86003; 86005; 86140; 86255

== ENCOUNTER → 2022-10-20 | Outpatient (CLI) | payer MEDICARE, SELFPAY ==
--- NOTE | 2022-10-20 11:39 | NM_ITS ---
CLINICAL: 82-year-old female with history of clinical gastroparesis. SEMI-SOLID PHASE 99m Tc SULFUR COLLOID GASTRIC EMPTYING STUDY COMPARISON: None available FINDINGS: The patient was administered 1.1 mCi of 99m Tc sulfur colloid mixed with oatmeal and consumed per os. Image acquisitions in the anterior-posterior projections were obtained for 60 minutes. There is prompt visualization of the stomach. There is no gastroesophageal reflux identified. The T ? raw data emptying was calculated to be 29.32 minutes, (Normal: 12-56 minutes). NM/Gastric Emptying Study IMPRESSION: 1. NORMAL 99m Tc sulfur colloid semi-solid phase (oatmeal) gastric emptying imaging examination. A. There is normal and preserved semi-solid phase gastric emptying compared to normal controls. (Teto et al, J Nucl Med Tech 38: 186, 2010). Electronically Signed: Raf Nails, at 23:34 EDT ,
== END | disposition home or self-care (01) ==
LOC: NM 11:35
PROVIDERS: PCP Family Medicine; Referring Provider Internal Medicine Gastroenterology; Visit Provider Internal Medicine Gastroenterology
DX: R11.0 Nausea (principal)
CPT/HCPCS: 78264; A9541

== ENCOUNTER 2022-12-03 04:39 | Observation (INO) | payer MEDICARE, SELFPAY ==
[2022-12-03] VITALS (8 sets, daily range): BP systolic 139–165; BP diastolic 71–87; PULSE 87–96; RESP 14–24; TEMP 36.3–36.8; O2SAT 95–100; BMI 24.0
--- NOTE | 2022-12-03 04:43 | EDS_ITS ---
HPI History of Present Illness Chief Complaint: Chest Pain [facility] Medical History Abdominal pain Abnormal stress test Acute respiratory failure with hypoxia BRENT (acute kidney injury) Anemia Atherosclerotic heart disease of [place] coronary artery without angina pectoris Back pain Bloating Cerebrovascular disease Chest pain CHF (congestive heart failure) Chronic low back pain Chronic systolic heart failure CKD (chronic kidney disease) stage 3, GFR 30-59 ml/min Contusion of right hand Contusion of right knee DDD (degenerative disc disease), lumbar Diaphragmatic hernia without mention of obstruction or gangrene Difficulty balancing Dizziness Dyspnea Esophagitis Fibromyalgia Gait instability Laceration of lip without foreign body Limb weakness Non-STEMI (non-ST elevated myocardial infarction) Other chest pain 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 Polyneuropathy Pure hypercholesterolemia Segmental and somatic dysfunction of cervical region Segmental and somatic dysfunction of lumbar region Segmental and somatic dysfunction of pelvic region Segmental and somatic dysfunction of pelvic region Segmental and somatic dysfunction of thoracic region Shoulder pain SOB (shortness of breath) SVT (supraventricular tachycardia) Takotsubo cardiomyopathy Tooth fracture Unspecified fall, initial encounter Unspecified hemorrhoids Wrist pain, left Home Medications cholecalciferol (vitamin D3) 50 mcg (2,000 unit) tablet 50 mcg PO DAILY 07/27/21 [History Last Taken Unknown] levothyroxine 50 mcg tablet 50 mcg PO DAILY 07/27/21 [History Last Taken Unknown] multivitamin with minerals-folic acid 120 mcg chewable tablet (Centrum Adult 50 Plus Fresh-Fruity) 1 tab PO DAILY 04/20/22 [History Last Taken Unknown] amlodipine 2.5 mg tablet 2.5 mg PO DAILY #90 tabs 10/17/22 [Rx Last Taken Un known] lisinopril 10 mg tablet 10 mg PO DAILY #90 tabs 10/17/22 [Rx Last Taken Unknown] Allergy/AdvReac Type Severity Reaction Status Date / Time codeine Allergy Severe Nausea Verified 12/01/22 12:18 oxycodone HCl Allergy Severe Nausea Verified 12/01/22 12:18 [From OxyContin] celecoxib [From Celebrex] Allergy Intermediate Other Verified 12/01/22 12:18 Family History Father , age 91 Cancer Hypertension Aunt Diabetes Breast cancer 2 aunts Grandfather Diabetes Parkinson's disease Mother Hypertension Surgical History History of appendectomy History of cataract surgery History of section History of hysterectomy History of left heart catheterization (09/15/17) History of open reduction and internal fixation (ORIF) procedure History of total left knee replacement Social History Smoking Status: Never smoker second hand exposure: No alcohol intake: never substance use type: does not use caffeine: Yes Type: tea Number of servings: 1 seatbelt use: always EXAM Physical Exam Const Vital Signs: 12/03/22 04:41 12/03/22 04:40 12/03/22 04:51 Temperature 98.3 F 98.3 F Temperature Source Oral Oral Pulse Rate 87 96 Respiratory Rate 14 14 Blood Pressure 143/81 H 144/87 H Blood Pressure Mean 101 106 Pulse Ox 97 97 Oxygen Delivery Method Room Air Room Air Room Air Heart Score History: Moderately Suspicious ECG: Normal Age: >/= 65 years Risk Factors: >/= 3 Risk Factors or History of CAD Troponin: </= Normal Limit Score: 5 MDM MDM MDM Narrative Medical decision making narrative: HISTORY OF PRESENT ILLNESS: 82-year-old female here with chest pain. She states This awoke her from sleep. She notes in route she received aspirin and nitroglycerin x1. She further states pain is midsternal. Sharp. Not pressure-like. Not exertional or pleuritic. Denies cough fever or chills. Denies focal weakness or numbness. Denies lower extremity edema. Denies vomiting but notes some mild nausea. No diaphoresis noted. The patient denies recent surgery in the last 4 weeks or immobilization in the last 3 days, denies previous diagnosis of DVT or PE, hemoptysis, unilateral leg swelling or malignancy with treatment the last 6 months. No estrogen use noted. Patient denies sudden onset of pain, no tearing sensation, no migratory symptoms, no new numbness, weakness or loss of sensation. Patient denies family history or personal history of Marfan syndrome or Susan-Danlos REVIEW OF SYSTEMS: Pertinent positives: Chest pain Pertinent negatives: Syncope, focal weakness PHYSICAL EXAM: Nursing triage notes reviewed, Vital signs reviewed Constitutional: please see mdm HENT: MMM Eyes: Pupils equal round and reactive to light, Extraocular muscles intact Neck: No stridor, no JVD, full neck ROM Lungs: Clear to auscultation, No wheezing or rales. No increased work of breathing, no conversational dyspnea, no accessory muscle use, no nasal flaring. No respiratory distress noted Heart: Regular rate and rhythm, No murmurs, No rubs and No gallops, 2+ distal pulses (radial, femoral, posterior tibial) in all extremities Abdomen: Soft, there is no tenderness, rigidity, rebound or guarding, no obvious peritoneal signs, no palpable pulsatile abdominal masses, no auscultated abdominal bruit : No CVAT Extremities: No edema Neuro: No focal neurological deficits, cranial nerves II through XII intact, 5/5 strength in all extremities. Intact sensation to light touch in all extremities, 2+ reflexes bilateral patella tendons. Normal gait. No ataxia. Skin: No rash or lesions noted MEDICAL DECISION MAKING: Chief Complaint: Chest pain External records reviewed: Stress test in 2019 shows ejection fraction 80%, normal no evidence of stress-induced ischemia Factors affecting care: Hypertension, cardiopulmonary arrest, CAD status post left heart cath, hypothyroidism Social determinants of health: Never smoker History obtained from others: None Consults: none ALL IMAGES (IF OBTAINED) HAVE BEEN PERSONALLY REVIEWED AND INTERPRETED BY MYSELF. EKG with normal sinus rhythm, left axis deviation, normal intervals, no STEMI or ischemic changes noted no significant change from prior EKG on 10/05/2020 CBC without leukocytosis, severe anemia, no thrombocytopenia. BMP within normal limits suggestive of no increased cardiac myocyte stretch Troponin is negative, no evidence of myocardial ischemia MDM Narrative: Patient was hemodynamically stable, afebrile, nontoxic-appearing I considered the following differential diagnosis: ACS, pneumonia, anemia, pneumothorax, CHF, pericarditis, PE, aortic dissection While I considered aortic dissection or PE the patient had low risk based on her clinical exam and history. There are no stigmata of VTE on exam. No pulse deficits. Patient did not endorse pain as ripping or tearing. I obtained labs and images to further elucidate the etiology of the patient's complaints. Labs images were unremarkable for ACS, anemia, arrhythmia. There is no evidence of pericarditis CHF or pneumonia. Patient has elevated heart score given her age, risk factors history of cardiomyopathy etc. Given this I offered the patient admission for confirmatory testing and potentially stress test. I discussed the case with the hospitalist Dr. Cody. The patient and/or family, caregivers express understanding. The patient and/or family, caregivers agrees with the plan. Shared decision making: I will have a discussion with the patient and or visitors regarding risk/benefits of further testing or admission. They will be made aware of of the risk/benefits inherent in this decision they will be given the opportunity to voice understanding. Total critical care time today provided was at least 0 [] minutes. This excludes separately billable procedures. Critical care time (if documented) is secondary to the patient having high probability of clinically significant/life threatening deterioration in the patient's condition which required my urgent intervention. Lab Data Attestation: I reviewed the patient's lab results. Labs: Laboratory Results - last 24 hr 12/03/22 04:56 WBC 6.0 RBC 4.04 L Hgb 12.2 Hct 37.4 MCV 92.6 MCH 30.2 MCHC 32.6 RDW Std Deviation 42.5 RDW Coeff of Tom 12.5 Plt Count 180 MPV 10.9 Immature Gran % (Auto) 0.300 Neut % (Auto) 66.4 Lymph % (Auto) 22.6 [place] % (Auto) 8.4 Eos % (Auto) 1.5 Baso % (Auto) 0.8 Absolute Neuts (auto) 4.0 Absolute Lymphs (auto) 1.35 Nucleated RBC % 0 Sodium 140 Potassium 4.2 Chloride 106 Carbon Dioxide 30.0 Anion Gap 4 L BUN 32 H Creatinine 1.06 H Estim Creat Clear Calc 34.43 Est GFR (MDRD) Af Amer 64 Est GFR (MDRD) Non-Af 53 L BUN/Creatinine Ratio 30.2 H Glucose 93 Calcium 9.6 Troponin I High Sens 11 B-Natriuretic Peptide 75.7 Radiography Chest X-Ray - ED: Read by ED Physician Diagnostic Testing: Clinical Impression(s) from Imaging Studies Chest X-Ray 12/03/22 05:05 IMPRESSION: Multiple left rib fractures involving the left seventh, eighth, ninth, 10th ribs are new since 07/28/2018. There is no evidence of pneumothorax. Electronically Signed: Isreal Pinedo MD at 5:19 EDT , Chest x-ray by my read showed no evidence of cardiomegaly, pulmonary edema, focal consolidation. Per radiology did show evidence of left-sided rib fractures. Upon further discussion with the patient she does endorse falling approximately 6 months ago but denies any recent falls or new trauma she is aware that her ribs are fractured. This is baseline for the patient. Discharge Plan Triage Chief Complaint: Chest Pain ED Provider: Walter Cheung Dx/Rx/DC Orders Prescriptions: No Action levothyroxine 50 mcg tablet 50 mcg PO DAILY cholecalciferol (vitamin D3) 50 mcg (2,000 unit) tablet 50 mcg PO DAILY Centrum Adult 50 Fresh-Fruity 120 mcg tablet,chewable 1 tab PO DAILY lisinopril 10 mg tablet 10 mg PO DAILY Qty: 90 3RF amlodipine 2.5 mg tablet 2.5 mg PO DAILY Qty: 90 3RF Primary Care Provider: Moy Cruz Referrals: Moy Cruz MD [Primary Care Provider] -
--- NOTE | 2022-12-03 05:00 | EKG12_ITS ---
Test Reason : CP Blood Pressure : / mmHG Vent. Rate : 094 BPM Atrial Rate : 094 BPM P-R Int : 128 ms QRS Dur : 082 ms QT Int : 346 ms P-R-T Axes : 068 -14 038 degrees QTc Int : 432 ms Sinus rhythm with occasional Premature ventricular complexes Otherwise normal ECG Confirmed by ISAEL RAMSAY, ZANE ([id number]), newspaper managing editor TRES CABALLERO ([id number]) on 12/05/2022 12:31:54 PM Referred By: JENNIFER Confirmed By:ZANE KIRKLAND MD
[2022-12-03 05:03] LABS: Absolute Lymphocyte Count 1.35 X10^3/uL (0.83-4.51); Basophil# 0.05 X10^3/uL; Basophil% 0.8 % (0-1); Eosinophil# 0.09 X10^3/uL; Eosinophils% 1.5 % (0-5); Hematocrit 37.4 % (37-47); Hemoglobin 12.2 g/dL (12.0-15.0); Lymphocyte # 1.35 X10^3/ul (0.83-4.51); Lymphocyte % 22.6 % (19-41); Mean Corp Hgb Conc 32.6 g/dL (32-36); Mean Corpuscular Hgb 30.2 pg (27.0-32.0); Mean Corpuscular Volume 92.6 fL (81-99); Mean Platelet Vol. 10.9 fl (6.2-12.0); Monocyte% 8.4 % (0-10); NRBC Flagged by Analyzer 0 % (0-5); Neutrophil # 3.96 X10^3/uL (2.7-7.7); Neutrophil % 66.4 % (47-70); Platelet Count 180 K/mm3 (150-450); RBC Distribution Width CV 12.5 % (11.6-14.6); RBC Distribution Width SD 42.5 fl (35.1-43.9); Red Blood Count 4.04 M/mm3 (4.2-5.4)
--- NOTE | 2022-12-03 05:05 | RAD_ITS ---
INDICATION: chest pain EXAMINATION/TECHNIQUE: X-RAY - XR Chest 1 View COMPARISON: 07/28/2018 FINDINGS: LINES/DEVICES: None. LUNGS: No consolidation, edema or effusion. No pneumothorax. MEDIASTINUM AND CARDIOVASCULAR STRUCTURES: Cardiac silhouette not enlarged. Central airways and mediastinal contour are unremarkable. BONES AND SOFT TISSUES: Multiple left rib fractures involving the left seventh, eighth, ninth, 10th ribs are new since 07/28/2018. RAD/Chest 1 View (Portable) IMPRESSION: Multiple left rib fractures involving the left seventh, eighth, ninth, 10th ribs are new since 07/28/2018. There is no evidence of pneumothorax. Electronically Signed: Isreal Pinedo MD at 5:19 EDT ,
[2022-12-03 05:20] LABS: Anion Gap 4 (5-15); BUN 32 mg/dL (7-18); BUN/Creat Ratio 30.2 RATIO (10-20); Calcium,Total 9.6 mg/dL (8.5-10.1); Chloride 106 mmol/L (98-107); Creatinine, Serum 1.06 mg/dL (0.55-1.02); EST Glomerular Filtration Rate 53 mL/min (>60); Est Glom Filt Rate - Afr Amer 64 mL/min (>60); Estimated Creatinine Clearance 34.43 ml/min; Glucose 93 mg/dL (74-106); Potassium 4.2 mmol/L (3.5-5.1); Sodium Level 140 mmol/L (136-145); Troponin-I HS (w/2H Reflex) 11 pg/mL (3.0-54.0)
[2022-12-03 05:24] LABS: BNP,B-Type NATRIURETIC PEPTIDE 75.7 pg/mL (0-100)
--- NOTE | 2022-12-03 05:55 | PCM.HP.STD ---
HPI - General General Date of Admission: 12/03/22 Date of Service: 12/03/22 Chief Complaint: Chest pain HPI Narrative ANGELI NICHOLAS, is a 82 F with a significant history of congestive heart failure; Takotsubo cardiomyopathy; NSTEMI; and fibromyalgia who presents emergency department with chest pain that started few hours before presentation. Reportedly the chest pain woke patient from her sleep. Intensity of chest pain is 5 out of 10. The chest pain is intermittent but persistent. She describes the chest pain as spasms. Her chest pain is nonradiating. She has chronic nausea [facility] Medical History (Updated 12/03/22 @ 06:[address] Fred Cody MD) Abdominal pain Abnormal stress test Acute respiratory failure with hypoxia BRENT (acute kidney injury) Anemia Atherosclerotic heart disease of [place] coronary artery without angina pectoris Back pain Bloating Cerebrovascular disease Chest pain CHF (congestive heart failure) Chronic low back pain Chronic systolic heart failure CKD (chronic kidney disease) stage 3, GFR 30-59 ml/min Contusion of right hand Contusion of right knee DDD (degenerative disc disease), lumbar Diaphragmatic hernia without mention of obstruction or gangrene Difficulty balancing Dizziness Dyspnea Esophagitis Fibromyalgia Gait instability Laceration of lip without foreign body Limb weakness Non-STEMI (non-ST elevated myocardial infarction) Other chest pain 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 alf (current) drug therapy Polyneuropathy Pure hypercholesterolemia Segmental and somatic dysfunction of cervical region Segmental and somatic dysfunction of lumbar region Segmental and somatic dysfunction of pelvic region Segmental and somatic dysfunction of pelvic region Segmental and somatic dysfunction of thoracic region Shoulder pain SOB (shortness of breath) SVT (supraventricular tachycardia) Takotsubo cardiomyopathy Tooth fracture Unspecified fall, initial encounter Unspecified hemorrhoids Wrist pain, left Home Medications cholecalciferol (vitamin D3) 50 mcg (2,000 unit) tablet 50 mcg PO DAILY 07/27/21 [History Last Taken Unknown] levothyroxine 50 mcg tablet 50 mcg PO DAILY 07/27/21 [History Last Taken Unknown] multivitamin with minerals-folic acid 120 mcg chewable tablet (Centrum Adult 50 Plus Fresh-Fruity) 1 tab PO DAILY 04/20/22 [History Last Taken Unknown] amlodipine 2.5 mg tablet 2.5 mg PO DAILY #90 tabs 10/17/22 [Rx Last Taken Unknown] lisinopril 10 mg tablet 10 mg PO DAILY #90 tabs 06/05/23 [Rx Last Taken Unknown] Allergy/AdvReac Type Severity Reaction Status Date / Time codeine Allergy Severe Nausea Verified 12/01/22 12:18 oxycodone HCl Allergy Severe Nausea Verified 12/01/22 12:18 [From OxyContin] celecoxib [From Celebrex] Allergy Intermediate Other Verified 12/01/22 12:18 Family History Father , age 91 Cancer Hypertension Aunt Diabetes Breast cancer 2 aunts Grandfather Diabetes Parkinson's disease Mother Hypertension Surgical History History of appendectomy History of cataract surgery History of section History of hysterectomy History of left heart catheterization (09/15/17) History of open reduction and internal fixation (ORIF) procedure History of total left knee replacement Social History Smoking Status: Never smoker second hand exposure: No alcohol intake: never substance use type: does not use caffeine: Yes Type: tea Number of servings: 1 seatbelt use: always ROS ROS Narrative Pertinent positives and pertinent negatives as noted in HPI. All other systems were reviewed and are negative Vital Signs Vital Signs Vital Signs: 12/03/22 04:41 12/03/22 04:40 12/03/22 04:51 Temperature 98.3 F 98.3 F Temperature Source Oral Oral Pulse Rate 87 96 Respiratory Rate 14 14 Blood Pressure 143/81 H 144/87 H Blood Pressure Mean 101 106 Pulse Ox 97 97 Oxygen Delivery Method Room Air Room Air Room Air Weight Weight: 61.7 kg Body Mass Index (BMI) 24.0 Physical Exam Narrative Physical exam: General: Well-nourished, well-developed. Head: Normocephalic, atraumatic, no tenderness Eyes: Vision is grossly intact. EOMI ENT, no trauma, moist mucous membranes, no rhinorrhea Neck: Nontender, No thyromegaly. CVS: Regular rate and rhythm. S1-S2 present. No murmur, gallop or rub. Respiratory : clear to auscultation bilaterally, chest wall nontender Abdomen: Soft, nontender, nondistended, normal bowel sounds, no masses : Deferred Back: Nontender, no CVA tenderness. Extremities: Nontender full range of motion, no trauma Skin: Normal color, no trauma, abrasions Neuro: Alert, oriented, cranial nerves II through XII grossly intact. Psychiatry: Normal mood. Normal affect. Not depressed. Not anxious. Results Lab / Micro Data 12/03/22 04:56 12/03/22 04:56 Labs: Laboratory Results - last 24 hr 12/03/22 04:56: WBC 6.0, RBC 4.04 L, Hgb 12.2, Hct 37.4, MCV 92.6, MCH 30.2, MCHC 32.6, RDW Std Deviation 42.5, RDW Coeff of Tom 12.5, Plt Count 180, MPV 10.9, Immature Gran % (Auto) 0.300, Neut % (Auto) 66.4, Lymph % (Auto) 22.6, [place] % (Auto) 8.4, Eos % (Auto) 1.5, Baso % (Auto) 0.8, Absolute Neuts (auto) 4.0, Absolute Lymphs (auto) 1.35, Nucleated RBC % 0, Sodium 140, Potassium 4.2, Chloride 106, Carbon Dioxide 30.0, Anion Gap 4 L, BUN 32 H, Creatinine 1.06 H, Estim Creat Clear Calc 34.43, Est GFR (MDRD) Af Amer 64, Est GFR (MDRD) Non-Af 53 L, BUN/Creatinine Ratio 30.2 H, Glucose 93, Calcium 9.6, Troponin I High Sens 11, B-Natriuretic Peptide 75.7 Radiology Impression Chest X-Ray 12/03/22 05:05 IMPRESSION: Multiple left rib fractures involving the left seventh, eighth, ninth, 10th ribs are new since 07/28/2018. There is no evidence of pneumothorax. Electronically Signed: Isreal Pinedo MD at 5:19 EDT , Assessment & Plan Assessment/Plan (1) Chest pain: QUALIFIERS: Chest pain type: unspecified Qualified Code(s): R07.9 - Chest pain, unspecified (2) Essential hypertension: PLAN: Plan Chest pain Place on a monitored bed at PCU Actual CXR image was independently visualized. No acute cardiopulmonary process was noted. ASA 81 mg p.o. daily ordered We will check lipid panel. Initial cardiac enzymes was negative. Serial cardiac enzymes ordered Stat EKG as needed for chest pain Chemical stress test in the AM if the cardiac enzymes are negative Hypertension Blood pressure is not within goal Home blood pressure medication continued. As needed hydralazine ordered. Trend blood pressure and adjust blood pressure medications. Chronic systolic heart failure Stable DVT prophylaxis ordered. SCDs ordered Time spent in the patient's overall evaluation,decision-making process, review of diagnostic data, adjustment of management, discussion with other providers, nursing nursing and ancillary staff involved in patient's care documentation, 45 minutes. Charges/Coding Visit Charges Inpatient E&M: 26795 Init Hosp L2
--- NOTE | 2022-12-03 06:17 | EKG12_ITS ---
Test Reason : CP ADMIN Blood Pressure : / mmHG Vent. Rate : 092 BPM Atrial Rate : 092 BPM P-R Int : 164 ms QRS Dur : 084 ms QT Int : 350 ms P-R-T Axes : 107 -05 037 degrees QTc Int : 432 ms Sinus rhythm with occasional Premature ventricular complexes Otherwise normal ECG When compared with ECG of 03-DEC-2022 04:41, MANUAL COMPARISON REQUIRED, DATA IS UNCONFIRMED Confirmed by ISAEL RAMSAY, ZANE ([id number]), purchase request editor TRES CABALLERO ([id number]) on 12/06/2022 7:17:12 AM Referred By: Confirmed By:ZANE KIRKLAND MD
[2022-12-03 06:59] LABS: Reflex Troponin-HS? (from REC) Y
--- NOTE | 2022-12-03 07:30 | ECHOD_ITS ---
Reason For Study: CHEST PAIN Procedure This was a 2D Doppler, Color Flow transthoracic echocardiogram. Exam performed portable in patient room. Left Ventricle Normal size and thickness. The left ventricular ejection fraction is 60 %. Unable to assess diastolic function based on available data. Right Ventricle Normal right ventricle. Atria The left atrium is moderately enlarged. The right atrium is moderately enlarged. Mitral Valve Trivial mitral valve insufficiency. Tricuspid Valve Moderate (2+) eccentric tricuspid valve insufficiency. Normal pulmonary artery pressure. Aortic Valve Aortic sclerosis, no stenosis. Mild (1+) aortic valve insufficiency. Pulmonic Valve The pulmonic valve is not well visualized. Great Vessels The aortic root is not well visualized. Pericardium/Pleural No pericardial effusion. MMode/2D Measurements & Calculations LVIDd: 4.5 cm IVSd: 0.77 cm LAV(MOD-bp): 65.9 ml LVIDs: 3.8 cm LVPWd: 1.1 cm LAV(MOD-bp) Indexed: 40.3 ml/m2 RVDd: 3.0 cm FS: 15.3 % LAV(MOD-sp2): 81.6 ml LAV(MOD-sp4): 50.8 ml SV(MOD-sp4): 29.8 ml SV(sp4-el): 32.7 ml LVAd ap4: 21.0 cm2 LVLd ap4: 6.3 cm EDV(MOD-sp4): 55.2 ml EDV(sp4-el): 59.0 ml LVAs ap4: 12.9 cm2 LVLs ap4: 5.3 cm ESV(MOD-sp4): 25.4 ml ESV(sp4-el): 26.3 ml EF(MOD-sp4): 53.9 % EF(sp4-el): 55.4 % LA A4 area: 18.2 cm2 LA dimension(2D): 4.1 cm RA A4 area: 20.3 cm2 TAPSE: 2.0 cm Time Measurements MV dec time: 0.17 sec Doppler Measurements & Calculations MV E max ejff: 62.9 cm/sec MV V2 max: 88.1 cm/sec MV dec slope: 370.3 cm/sec2 MV A max jeff: 68.8 cm/sec MV max P.2 mmHg MV E/A: 0.92 MV V2 mean: 62.6 cm/sec MV mean P.7 mmHg MV V2 VTI: 24.0 cm Ao V2 max: 141.6 cm/sec LV V1 max: 111.3 cm/sec PA V2 max: 77.6 cm/sec Ao max P.0 mmHg LV V1 max P.0 mmHg PA V2 mean: 60.7 cm/sec Ao V2 mean: 96.9 cm/sec LV V1 mean P.4 mmHg Ao mean P.3 mmHg LV V1 mean: 72.5 cm/sec Ao V2 VTI: 29.9 cm LV V1 VTI: 24.9 cm AV (velocity ratio): 0.83 TR max jeff: 270.7 cm/sec TR max P.3 mmHg ECHO/Echo Complete Interpretation Summary The left ventricular ejection fraction is 60 %. The left atrium is moderately enlarged. The right atrium is moderately enlarged. Moderate (2+) eccentric tricuspid valve insufficiency. Aortic sclerosis, no stenosis. Ordering Physician: Fred Cody Referring Physician: MD Nancy Moy Performed By: Millicent Banda RCS
[2022-12-03 08:33] LABS: Troponin-I HS 11 pg/mL (3.0-54.0)
[2022-12-03] MEDS: Aspirin E.C. 81 MG Tablet PO (11:02)
[2022-12-03] MEDS: amLODIPine 2.5 MG Tablet PO (11:02)
[2022-12-03] MEDS: Multivitamins,Ther W-Minerals Tablet 1 TABLET PO (11:02)
[2022-12-03] MEDS: Lisinopril 10 MG Tablet PO (11:02)
[2022-12-03] MEDS: Cholecalciferol (VIT D3) 25 MCG TABLET (1,000 UNITS) 50 MCG PO (11:03)
[2022-12-03 11:07] LABS: Troponin-I HS 8 pg/mL (3.0-54.0)
--- NOTE | 2022-12-03 13:54 | DCINST_ITS ---
Discharge Instructions Diet Discharge Diet: No restrictions Activity Discharge Activity: Return to Normal Activity Weight Bearing Status: Full weight bearing Follow Up Care Test Results: Test results from this visit will be discussed in further detail at your follow- up appointment, if applicable. Discharge Plan Admission Admit Date/Time: 12/03/22 05:56 Primary Reason for Your Visit: chest pain Attending Provider: Moy Baxter Primary Care Provider: Moy Cruz Consulting Providers: Fred Cody Discharge Orders/Prescriptions Prescriptions: Continued levothyroxine 50 mcg tablet 50 mcg PO DAILY cholecalciferol (vitamin D3) 50 mcg (2,000 unit) tablet 50 mcg PO DAILY Centrum Adult 50 Fresh-Fruity 120 mcg tablet,chewable 1 tab PO DAILY lisinopril 10 mg tablet 10 mg PO DAILY Qty: 90 3RF amlodipine 2.5 mg tablet 2.5 mg PO DAILY Qty: 90 3RF Referrals / Follow Up: Moy Cruz MD [Primary Care Provider] - Within 2 Weeks Disposition Disposition (needs filled in before D/C Order can be placed): Home, Self Care
--- NOTE | 2022-12-03 14:00 | PCM.DC.SUM ---
Providers Date of Admission: 12/03/22 Date of Discharge: 12/03/22 Primary Care Physician: Dr. Moy Cruz MD Reason For Visit: chest pain Diagnosis Discharge Diagnosis (1) Chest pain: Status: Acute Code(s): R07.9 - Chest pain, unspecified Qualifiers: Chest pain type: unspecified Qualified Code(s): R07.9 - Chest pain, unspecified (2) Essential hypertension: Status: Chronic Code(s): I10 - Essential (primary) hypertension Plan 1. Musculoskeletal chest pain #2 essential hypertension #3 Parkinson's disease #4 history of Takotsubo's cardiomyopathy Medications at Discharge Home Medications cholecalciferol (vitamin D3) 50 mcg (2,000 unit) tablet 50 mcg PO DAILY VITAMIN 07/27/21 levothyroxine 50 mcg tablet 50 mcg PO DAILY THYROID 07/27/21 multivitamin with minerals-folic acid 120 mcg chewable tablet (Centrum Adult 50 Plus Fresh-Fruity) 1 tab PO DAILY VITAMIN 04/20/22 amlodipine 2.5 mg tablet 2.5 mg PO DAILY BLOOD PRESSURE #90 tabs 10/17/22 lisinopril 10 mg tablet 10 mg PO DAILY BLOOD PRESSURE #90 tabs 10/17/22 Hospital Course Operations None Procedures 2-D Echocardiogram Summary of Care Provided Minutes Spent on Discharge: 30 Hospital Course: This 82-year-old white female was seen in the emergency room at [facility] with complaints to the emergency room physician of chest pain which she described as sharp and midsternal, she states it awoke her from her sleep. Work-up in the emergency room included a chest x-ray which is unremarkable except for previous rib fractures, EKG showed no evidence of ischemic changes, cardiac enzymes were unremarkable. Patient was placed in observation status on PCU, she underwent an echocardiogram which showed a normal EF and no severe significant valvular heart disease. I had a discussion with the patient concerning her chest discomfort, she denied that she complained of chest discomfort and said that she had left shoulder discomfort. On 12/03/2022, patient was seen and examined: On examination she appeared in good health and spirits, she does not appear to be in any distress. Vital signs as documented. Skin warm and dry and without overt rashes. Neck without JVD, thyroid appears normal, trachea is midline, neck is supple. Lungs clear, normal air movement was noted. Heart exam notable for regular rhythm, normal sounds and absence of murmurs, rubs or gallops. Abdomen unremarkable and without evidence of organomegaly, masses, or abdominal aortic enlargement, bowel sounds are present in all 4 quadrants, no abdominal tenderness was noted. Extremities nonedematous, no cyanosis was noted, no clubbing was noted. Neuro: Cranial nerves II through XII are grossly intact, no focal motor deficits were noted, sensation to light touch and pinprick is intact, motor exam 5/5 throughout. Psych: Patient is alert and oriented x3, she does not appear anxious or depressed, she does not appear agitated. Patient appears stable for discharge on 12/03/2022 Weight / BMI Weight Weight: 61.6 kg Body Mass Index (BMI) 24.0 ABG / Lab / Microbiology Data 12/03/22 04:56 12/03/22 04:56 Laboratory: Laboratory Results - last 24 hr 12/03/22 04:56: WBC 6.0, RBC 4.04 L, Hgb 12.2, Hct 37.4, MCV 92.6, MCH 30.2, MCHC 32.6, RDW Std Deviation 42.5, RDW Coeff of Tom 12.5, Plt Count 180, MPV 10.9, Immature Gran % (Auto) 0.300, Neut % (Auto) 66.4, Lymph % (Auto) 22.6, Chambers % (Auto) 8.4, Eos % (Auto) 1.5, Baso % (Auto) 0.8, Absolute Neuts (auto) 4.0, Absolute Lymphs (auto) 1.35, Nucleated RBC % 0, Sodium 140, Potassium 4.2, Chloride 106, Carbon Dioxide 30.0, Anion Gap 4 L, BUN 32 H, Creatinine 1.06 H, Estim Creat Clear Calc 34.43, Est GFR (MDRD) Af Amer 64, Est GFR (MDRD) Non-Af 53 L, BUN/Creatinine Ratio 30.2 H, Glucose 93, Calcium 9.6, Troponin I High Sens 11, B-Natriuretic Peptide 75.7 12/03/22 07:14: Troponin I High Sens 11 12/03/22 10:40: Troponin I High Sens 8 Radiography Diagnostic Testing: Radiology Impression Chest X-Ray 12/03/22 05:05 IMPRESSION: Multiple left rib fractures involving the left seventh, eighth, ninth, 10th ribs are new since 07/28/2018. There is no evidence of pneumothorax. Electronically Signed: Isreal Pinedo MD at 5:19 EDT , Echocardiogram 12/03/22 07:30 Interpretation Summary The left ventricular ejection fraction is 60 %. The left atrium is moderately enlarged. The right atrium is moderately enlarged. Moderate (2+) eccentric tricuspid valve insufficiency. Aortic sclerosis, no stenosis. Ordering Physician: Fred Cody Referring Physician: MD Moy Cruz Performed By: Millicent Banda RCS D/C Instructions Discharge Diet: No restrictions Weight Bearing Status: Full weight bearing Meaningful Use Info Meaningful Use Diagnoses (Choose all that apply): None applicable Discharge Plan Admission Admit Date/Time: 12/03/22 05:56 Primary Reason for Your Visit: chest pain Attending Provider: Moy Baxter Primary Care Provider: Moy Cruz Consulting Providers: Fred Cody Discharge Orders/Prescriptions Prescriptions: Continued levothyroxine 50 mcg tablet 50 mcg PO DAILY cholecalciferol (vitamin D3) 50 mcg (2,000 unit) tablet 50 mcg PO DAILY multivit with min-folic acid [Centrum Adult 50 Fresh-Fruity] 120 mcg tablet,chewable 1 tab PO DAILY lisinopril 10 mg tablet 10 mg PO DAILY Qty: 90 3RF amlodipine 2.5 mg tablet 2.5 mg PO DAILY Qty: 90 3RF Referrals / Follow Up: Moy Cruz MD [Primary Care Provider] - Within 2 Weeks Disposition Disposition (needs filled in before D/C Order can be placed): Home, Self Care Charges/Coding Visit Charges Office Visits / Consults: [id number] OV L4 Est
== END 2022-12-03 15:56 | disposition home or self-care (01) ==
LOC: ED 05:19 → PCU 06:33
PROVIDERS: Admitting Provider Hospitalist; Emergency Provider Emergency Medicine; PCP Family Medicine; Visit Provider Internal Medicine
DX: R07.89 Other chest pain (principal); I13.0 Hypertensive heart and chronic kidney disease with heart failure and stage 1 through stage 4 chronic kidney disease, or unspecified chronic kidney disease; I50.22 Chronic systolic (congestive) heart failure; N18.30 Chronic kidney disease, stage 3 unspecified; E03.9 Hypothyroidism, unspecified; E78.00 Pure hypercholesterolemia, unspecified; I49.9 Cardiac arrhythmia, unspecified; I25.10 Atherosclerotic heart disease of native coronary artery without angina pectoris; M79.7 Fibromyalgia; Z79.899 Other long term (current) drug therapy; Z79.890 Hormone replacement therapy; I25.2 Old myocardial infarction
CPT/HCPCS: 36415; 71045; 80048; 83880; 84484; 85025; 93005; 93306; 99221; 99285; G0378

== ENCOUNTER → 2022-12-12 | Outpatient (CLI) | payer MEDICARE, SELFPAY ==
[2022-12-13 12:09] LABS: Vitamin D 1,25-Dihydroxy 39.9 pg/mL (24.8-81.5)
== END | disposition home or self-care (01) ==
PROVIDERS: PCP Family Medicine; Referring Provider Psychiatry & Neurology Neurology; Visit Provider Psychiatry & Neurology Neurology
DX: M85.80 Other specified disorders of bone density and structure, unspecified site (principal)
CPT/HCPCS: 36415; 82652

== ENCOUNTER 2023-01-23 17:19 | Emergency (ER) | payer MEDICARE, SELFPAY ==
[2023-01-23 17:20] VITALS: BP 136/65; PULSE 60; RESP 16; TEMP 36.7; O2SAT 94; BMI 22.9
--- NOTE | 2023-01-23 17:51 | EKG12_ITS ---
Test Reason : DYSRHYTHMIA Blood Pressure : / mmHG Vent. Rate : 055 BPM Atrial Rate : 055 BPM P-R Int : 152 ms QRS Dur : 086 ms QT Int : 432 ms P-R-T Axes : 077 -16 025 degrees QTc Int : 413 ms Sinus bradycardia with marked sinus arrhythmia Otherwise normal ECG Confirmed by ISAEL RAMSAY, ZANE ([id number]), television news video editor MARIA ISABEL GONZALEZ ([id number]) on 01/26/2023 2:09:19 PM Referred By: Confirmed By:ZANE KIRKLAND MD
--- NOTE | 2023-01-23 17:51 | CT_ITS ---
STUDY: CT BRAIN WITHOUT CONTRAST REASON FOR EXAM: Female, 82 years old. dizzy RADIATION DOSAGE (If Supplied By Facility): CTDIvol = ( 44.99 ) mGy, DLP = ( 863.60 ) mGycm TECHNIQUE: Transaxial CT imaging of the brain was performed without administration of intravenous contrast material. Individualized dose optimization techniques were used for this CT. COMPARISON: 01/26/2018. FINDINGS: Normal soft tissue structures. Normal calvarium. There is mild cerebral atrophy with widening of the extra-axial spaces and ventricular dilatation. There are areas of decreased attenuation within the white matter tracts of the supratentorial brain, consistent with microvascular disease changes. Normal basal ganglia and thalami. Normal brainstem. Normal cerebellum. There is no intracranial hemorrhage. There are no findings of an acute ischemic infarction. Normal visualized paranasal sinuses. CT/Brain/Head without Contrast IMPRESSION: Chronic changes as described. Specifically, no acute intracranial hemorrhage or space-occupying lesion. Electronically Signed: Liberty Garcia MD at 18:42 EDT ,
--- NOTE | 2023-01-23 17:53 | EX.ED.DYSGE1 ---
HPI History of Present Illness Chief Complaint: Dizziness Informant: patient Onset/Context/Timing Onset: Weeks (2 to 3-weeks) Narrative Narrative: Patient presents with dizziness and weakness for the past 2 to 3 weeks. Patient did state that she went and had LASIK eye surgery on her left eye this morning. After coming home she called her doctor's office to see if there is anything else that could be done. Staff was concerned and recommended she come in. Patient denies chest pain or shortness of breath. She does report urinary frequency but no dysuria. She is been eating and drinking well. [facility] Medical History Abdominal pain Abnormal stress test Acute respiratory failure with hypoxia BRENT (acute kidney injury) Anemia Atherosclerotic heart disease of [place] coronary artery without angina pectoris Back pain Bloating Cerebrovascular disease Chest pain CHF (congestive heart failure) Chronic low back pain Chronic systolic heart failure CKD (chronic kidney disease) stage 3, GFR 30-59 ml/min Contusion of right hand Contusion of right knee DDD (degenerative disc disease), lumbar Diaphragmatic hernia without mention of obstruction or gangrene Difficulty balancing Dizziness Dyspnea Esophagitis Fibromyalgia Gait instability Laceration of lip without foreign body Limb weakness Non-STEMI (non-ST elevated myocardial infarction) Other chest pain Other retirement (current) drug therapy Polyneuropathy Pure hypercholesterolemia Segmental and somatic dysfunction of cervical region Segmental and somatic dysfunction of lumbar region Segmental and somatic dysfunction of pelvic region Segmental and somatic dysfunction of pelvic region Segmental and somatic dysfunction of thoracic region Shoulder pain SOB (shortness of breath) SVT (supraventricular tachycardia) Takotsubo cardiomyopathy Tooth fracture Unspecified fall, initial encounter Unspecified hemorrhoids Wrist pain, left Home Medications cholecalciferol (vitamin D3) 50 mcg (2,000 unit) tablet 50 mcg PO DAILY VITAMIN 07/27/21 [History Last Taken Unknown] levothyroxine 50 mcg tablet 50 mcg PO DAILY THYROID 07/27/21 [History Last Taken Unknown] multivitamin with minerals-folic acid 120 mcg chewable tablet (Centrum Adult 50 Plus Fresh-Fruity) 1 tab PO DAILY VITAMIN 04/20/22 [History Last Taken Unknown] amlodipine 2.5 mg tablet 2.5 mg PO DAILY BLOOD PRESSURE #90 tabs 10/17/22 [Rx Last Taken Unknown] lisinopril 10 mg tablet 10 mg PO DAILY BLOOD PRESSURE #90 tabs 10/17/22 [Rx Last Taken Unknown] Allergy/AdvReac Type Severity Reaction Status Date / Time codeine Allergy Severe Nausea Verified 01/23/23 17:20 oxycodone HCl Allergy Severe Nausea Verified 01/23/23 17:20 [From OxyContin] celecoxib [From Celebrex] Allergy Intermediate Other Verified 01/23/23 17:20 Family History Father , age 91 Cancer Hypertension Aunt Diabetes Breast cancer 2 aunts Grandfather Diabetes Parkinson's disease Mother Hypertension Surgical History History of appendectomy History of cataract surgery History of section History of hysterectomy History of left heart catheterization (09/15/17) History of open reduction and internal fixation (ORIF) procedure History of total left knee replacement Social History Smoking Status: Never smoker second hand exposure: No alcohol intake: never substance use type: does not use caffeine: Yes Type: tea Number of servings: 1 seatbelt use: always ROS ROS ED Constitutional Constitutional ED: Denies chills or fever(s) Eyes Eyes: Reports other Details: Slight dilation of left eye from recent surgery this morning ; Denies discharge from eye(s) ENT ENT ED: Denies discharge from eye(s), rhinorrhea or sore throat Cardiovascular Cardiovascular: Denies chest pain or palpitations Respiratory/Chest Respiratory/Chest: Denies cough or dyspnea Gastrointestinal Gastrointestinal: Denies abdominal pain, diarrhea, nausea or vomiting Genitourinary Genitourinary ED: Reports urinary frequency; Denies dysuria Musculoskeletal Musculoskeletal: Denies back pain or extremity pain Integumentary Denies Abrasions or rash Neurologic Neurologic: Reports weakness; Denies headache(s) Allergic/Immunologic Allergic/Immunologic ED: Denies lip swelling or urticaria EXAM Physical Exam Const Vital Signs: 01/23/23 17:20 01/23/23 17:25 01/23/23 20:04 Temperature 98.1 F Temperature Source Oral Pulse Rate 60 65 Respiratory Rate 16 17 Respiratory Effort Normal Non-Labored Respiratory Pattern Normal Blood Pressure 136/65 H 165/89 H Blood Pressure Mean 88 114 Pulse Ox 94 95 Oxygen Delivery Method Room Air Room Air Positive well nourished and well developed General Appearance ED: well developed HEENT Reports normocephalic and head/scalp atraumatic Eyes EOMs intact bilaterally Eyes Narrative: Left eye slightly dilated from recent surgery Neck supple Chest Wall inspection of chest normal and palpation of chest normal Resp normal respiratory effort and clear to auscultation bilaterally Cardio regular rhythm Rate: bradycardia GI normal to inspection, nondistended, normoactive bowel sounds Palpation: soft Extremity normal to inspection Neuro oriented x3 Neuro Narrative: No focal neurologic deficits. Sensorium / Orientation: alert Psych mental status grossly normal Skin no rashes or lesions noted MDM MDM MDM Narrative Medical decision making narrative: Patient placed on equipment monitor phototypesetting. EKG obtained to evaluate for cardiac arrhythmia/ischemia. Labwork obtained to evaluate for leukocytosis, anemia, and electrolyte derangement. Urinalysis obtained to evaluate for infection/hematuria. CT scan of the head obtained. History & Record Review Discussion w/independent historian: EMS personnel and Patient Lab Data Attestation: I reviewed the patient's lab results. Labs: Laboratory Results - last 24 hr 01/23/23 01/23/23 18:00 19:20 WBC 5.7 RBC 3.73 L Hgb 11.5 L Hct 34.0 L MCV 91.2 MCH 30.8 MCHC 33.8 RDW Std Deviation 42.2 RDW Coeff of Tom 12.7 Plt Count 158 MPV 10.7 Immature Gran % (Auto) 0.200 Neut % (Auto) 72.9 H Lymph % (Auto) 18.2 L Sandoval % (Auto) 7.3 Eos % (Auto) 0.7 Baso % (Auto) 0.7 Absolute Neuts (auto) 4.2 Absolute Lymphs (auto) 1.04 Nucleated RBC % 0 Sodium 141 Potassium 4.0 Chloride 107 Carbon Dioxide 29.0 Anion Gap 5 BUN 33 H Creatinine 1.04 H Estim Creat Clear Calc 33.55 Est GFR (MDRD) Af Amer 65 Est GFR (MDRD) Non-Af 54 L BUN/Creatinine Ratio 31.7 H Glucose 100 Calcium 8.7 Urine Color Yellow Urine Clarity Clear Urine pH 6.0 Ur Specific [place] 1.020 Urine Protein 15 H Urine Glucose (UA) Normal Urine Ketones Negative Urine Occult Blood Negative Urine Nitrite Negative Urine Bilirubin Negative Urine Urobilinogen Normal Ur Leukocyte Esterase 25 H Urine RBC 0 SEEN Urine WBC 0-5 SEEN Ur Squamous Epith Cells 0-5 SEEN Urine Bacteria 0 SEEN Hyaline Casts 0-5 SEEN Urine Mucus Not Reportable Radiography Chest X-Ray - ED: 1 View, Read by ED Physician, Chronic Changes and No Infiltrates Diagnostic Testing: Clinical Impression(s) from Imaging Studies Brain CT 01/23/23 17:51 IMPRESSION: Chronic changes as described. Specifically, no acute intracranial hemorrhage or space-occupying lesion. Electronically Signed: Liberty Garcia MD at 18:42 EDT , Chest X-Ray 01/23/23 18:25 IMPRESSION: No acute cardiopulmonary disease. Electronically Signed: Liberty Garcia MD at 19:03 EDT Reading Location ID and State: [id number] / [employer] , Service support , EKG Initial EKG: Attestation: I personally reviewed and interpreted this EKG as follows: Interpretation: Sinus Bradycardia (Sinus bradycardia 55 bpm with no acute ischemia.) Treatment and Re-Evaluation :: CBC was a white count of 5.7 with a hemoglobin 11.5. 72% neutrophils are done. Chemistry studies are unremarkable. BUN is 33 and creatinine is 1.04 which is consistent with prior values. Urinalysis reveals no evidence of infection. CT scan of the head reveals chronic changes with no acute findings. Portable chest x-ray per my interpretation reveals chronic changes with no focal infiltrate. Radiology interpretation is reviewed. EKG is sinus bradycardia the patient's blood pressure has been stable throughout her ED stay. Patient was observed ambulating to the restroom and back with a walker. Patient states that she does feel better walking with a walker than her cane. She has 3 walkers at home that she can use. At this time I do not have an acute cause for her dizziness and in fact it does look like patient has had this intermittently for quite some time. Should be discharged home with close follow-up instructions. Return instructions were also given. Discharge Plan Triage Chief Complaint: Dizziness ED Provider: Keri Muñiz Dx/Rx/DC Orders Clinical Impression: Dizziness Instructions: ED Dizziness, Uncertain Cause Prescriptions: No Action levothyroxine 50 mcg tablet 50 mcg PO DAILY cholecalciferol (vitamin D3) 50 mcg (2,000 unit) tablet 50 mcg PO DAILY multivit with min-folic acid [Centrum Adult 50 Fresh-Fruity] 120 mcg tablet,chewable 1 tab PO DAILY lisinopril 10 mg tablet 10 mg PO DAILY Qty: 90 3RF amlodipine 2.5 mg tablet 2.5 mg PO DAILY Qty: 90 3RF Primary Care Provider: Moy Cruz Referrals: Moy Cruz MD [Primary Care Provider] - 1 Week Disposition Disposition: Home, Self Care
[2023-01-23 18:07] LABS: Absolute Lymphocyte Count 1.04 X10^3/uL (0.83-4.51); Absolute Neutrophil Count 4.2 X10^3/uL (2.0-7.7); Basophil# 0.04 X10^3/uL; Basophil% 0.7 % (0-1); Eosinophil# 0.04 X10^3/uL; Eosinophils% 0.7 % (0-5); Hemoglobin 11.5 g/dL (12.0-15.0); Lymphocyte # 1.04 X10^3/ul (0.83-4.51); Lymphocyte % 18.2 % (19-41); Mean Corp Hgb Conc 33.8 g/dL (32-36); Mean Corpuscular Hgb 30.8 pg (27.0-32.0); Mean Corpuscular Volume 91.2 fL (81-99); Mean Platelet Vol. 10.7 fl (6.2-12.0); Monocyte# 0.42 X10^3/uL; Monocyte% 7.3 % (0-10); NRBC Flagged by Analyzer 0 % (0-5); Neutrophil # 4.17 X10^3/uL (2.7-7.7); Neutrophil % 72.9 % (47-70); Platelet Count 158 K/mm3 (150-450); RBC Distribution Width CV 12.7 % (11.6-14.6); RBC Distribution Width SD 42.2 fl (35.1-43.9); Red Blood Count 3.73 M/mm3 (4.2-5.4); White Blood Count 5.7 K/mm3 (4.4-11.0)
[2023-01-23 18:21] LABS: Anion Gap 5 (5-15); BUN 33 mg/dL (7-18); BUN/Creat Ratio 31.7 RATIO (10-20); Calcium,Total 8.7 mg/dL (8.5-10.1); Chloride 107 mmol/L (98-107); Creatinine, Serum 1.04 mg/dL (0.55-1.02); EST Glomerular Filtration Rate 54 mL/min (>60); Est Glom Filt Rate - Afr Amer 65 mL/min (>60); Estimated Creatinine Clearance 33.55 ml/min; Glucose 100 mg/dL (74-106); Sodium Level 141 mmol/L (136-145)
--- NOTE | 2023-01-23 18:25 | RAD_ITS ---
STUDY: X-RAY CHEST REASON FOR EXAM: Female, 82 years old. cp TECHNIQUE: Single AP portable view of the chest. COMPARISON: 12/03/2022. FINDINGS: The lungs are clear and expanded. There is no demonstrated pleural abnormality. Moderate cardiomegaly. Normal mediastinum and clarisa. Normal visualized pulmonary arteries. There is atherosclerotic calcification of the aortic arch with tortuosity. There is demineralization of the osseous structures. 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 There is no demonstrated abnormality of the visualized soft tissue structures of the upper abdomen. RAD/Chest 1 View (Portable) IMPRESSION: No acute cardiopulmonary disease. Electronically Signed: Liberty Garcia MD at 19:03 EDT ,
[2023-01-23 19:30] LABS: Bacteria 0 SEEN /hpf (None Seen); Red Blood Cells-Urine 0 SEEN /hpf (0-5)
[2023-01-23 19:38] LABS: Color, Urine Yellow (Yellow); Glucose, Dipstick Normal (Normal); Ketone-Dipstick Negative (Negative); Leukocyte Esterase-Dipstick 25 /ul (Negative); Nitrite-Dipstick Negative (Negative); Occult Blood-Urine Negative /ul (Negative); Protein-Dipstick 15 mg/dl (Negative); Urine Bilirubin Dipstick Negative (Negative); Urine Clarity Clear (Clear); Urine Urobilinogen Normal (Normal)
[2023-01-23] MEDS: 0.9% Normal Saline (1000mL) 1,000 ML 150 ML IV (19:40)
[2023-01-23 19:58] LABS: Hyaline Cast 0-5 SEEN /lpf (0-5); Squamous Epithelial Cells - UA 0-5 SEEN /hpf (5-10); White Blood Cells 0-5 SEEN /hpf (0-5)
[2023-01-23 20:04] VITALS: BP 165/89; PULSE 65; RESP 17; O2SAT 95
[2023-01-23 20:41] VITALS: BP 153/100; PULSE 53; RESP 16; O2SAT 99
== END 2023-01-23 22:29 | disposition home or self-care (01) ==
PROVIDERS: Emergency Provider Emergency Medicine; PCP Family Medicine; Visit Provider Emergency Medicine
DX: R42 Dizziness and giddiness (principal); I50.22 Chronic systolic (congestive) heart failure; N18.30 Chronic kidney disease, stage 3 unspecified; I25.10 Atherosclerotic heart disease of native coronary artery without angina pectoris; I25.2 Old myocardial infarction
CPT/HCPCS: 70450; 71045; 80048; 81001; 85025; 93005; 96360; 96361; 99285; J7030; A4216

== ENCOUNTER 2023-03-30 18:53 | Emergency (ER) | payer MEDICARE, SELFPAY ==
[2023-03-30 18:54] VITALS: BP 113/60; PULSE 73; RESP 18; TEMP 36.6; O2SAT 97
--- NOTE | 2023-03-30 20:46 | EKG12_ITS ---
Test Reason : Blood Pressure : / mmHG Vent. Rate : 052 BPM Atrial Rate : 052 BPM P-R Int : 136 ms QRS Dur : 084 ms QT Int : 438 ms P-R-T Axes : 068 -15 011 degrees QTc Int : 407 ms Poor data quality, interpretation may be adversely affected Sinus bradycardia Otherwise normal ECG Confirmed by ISAEL RAMSAY, ZANE ([id number]), business editor TRES CABALLERO ([id number]) on 04/05/2023 12:07:04 PM Referred By: Confirmed By:ZANE KIRKLAND MD
[2023-03-30 20:53] VITALS: PULSE 77; RESP 18; O2SAT 100
[2023-03-30 20:54] LABS: Absolute Lymphocyte Count 1.03 X10^3/uL (0.83-4.51); Absolute Neutrophil Count 5.6 X10^3/uL (2.0-7.7); Basophil# 0.03 X10^3/uL; Basophil% 0.4 % (0-1); Eosinophil# 0.04 X10^3/uL; Eosinophils% 0.5 % (0-5); Hematocrit 33.5 % (37-47); Hemoglobin 10.8 g/dL (12.0-15.0); Lymphocyte # 1.03 X10^3/ul (0.83-4.51); Lymphocyte % 14.1 % (19-41); Mean Corp Hgb Conc 32.2 g/dL (32-36); Mean Corpuscular Hgb 30.4 pg (27.0-32.0); Mean Corpuscular Volume 94.4 fL (81-99); Mean Platelet Vol. 10.1 fl (6.2-12.0); Monocyte# 0.57 X10^3/uL; Monocyte% 7.8 % (0-10); NRBC Flagged by Analyzer 0 % (0-5); Neutrophil # 5.62 X10^3/uL (2.7-7.7); Neutrophil % 77.1 % (47-70); Platelet Count 188 K/mm3 (150-450); RBC Distribution Width CV 13.3 % (11.6-14.6); Red Blood Count 3.55 M/mm3 (4.2-5.4); White Blood Count 7.3 K/mm3 (4.4-11.0)
[2023-03-30 21:08] LABS: Alcohol, Blood (Medical)-Serum < 3.0 mg/dL
[2023-03-30 21:19] LABS: AST(SGOT) 16 U/L (15-37); Alanine Aminotransfer ALT/SGPT 24 U/L (13-56); Albumin, Serum 3.1 g/dL (3.2-5.0); Alkaline Phosphatase 72 U/L (45-117); Anion Gap 4 (5-15); BUN 35 mg/dL (7-18); BUN/Creat Ratio 33.7 RATIO (10-20); Bilirubin, Direct 0.08 mg/dL (0.00-0.30); Chloride 111 mmol/L (98-107); Creatinine, Serum 1.04 mg/dL (0.55-1.02); EST Glomerular Filtration Rate 54 mL/min (>60); Est Glom Filt Rate - Afr Amer 65 mL/min (>60); Glucose 107 mg/dL (74-106); Potassium 4.4 mmol/L (3.5-5.1); Protein, Total 6.1 g/dL (6.4-8.2); Sodium Level 143 mmol/L (136-145); Troponin-I HS 12 pg/mL (3.0-54.0)
[2023-03-30 21:35] LABS: Bacteria 0 SEEN /hpf (None Seen); Mucous, Urine 0 SEEN /hpf (<or=2+); Red Blood Cells-Urine 0 SEEN /hpf (0-5)
[2023-03-30 21:36] LABS: Color, Urine Yellow (Yellow); Glucose, Dipstick Normal (Normal); Ketone-Dipstick 5 mg/dl (Negative); Leukocyte Esterase-Dipstick 25 /ul (Negative); Nitrite-Dipstick Negative (Negative); Occult Blood-Urine Negative /ul (Negative); Protein-Dipstick 15 mg/dl (Negative); Urine Bilirubin Dipstick Negative (Negative); Urine Clarity Clear (Clear); Urine Urobilinogen 1 mg/dl (Normal)
[2023-03-30 21:55] LABS: Squamous Epithelial Cells - UA 0-5 SEEN /hpf (5-10); White Blood Cells 0-5 SEEN /hpf (0-5)
[2023-03-30 21:56] LABS: Amphetamine Urine VISTA NEGATIVE (<1000 ng/mL); Barbiturate Urine VISTA NEGATIVE (< 200 ng/mL); Benzodiazepine Urine VISTA NEGATIVE (< 200 ng/mL); Cocaine Urine VISTA NEGATIVE (< 300 ng/mL); Ecstacy Urine VISTA NEGATIVE (< 500 ng/mL); Methadone Urine VISTA NEGATIVE (< 300 ng/mL); PCP Urine VISTA NEGATIVE (< 25 ng/mL); THC Urine VISTA NEGATIVE (< 50 ng/mL); Vista UDS pH Range 4
--- NOTE | 2023-03-30 22:00 | CT_ITS ---
INDICATION: ams EXAMINATION: CT BRAIN - CT Head or Brain W/O Contrast Injection TECHNIQUE: Multiple axial images were obtained of the head without intravenous contrast. A radiation dose optimization technique was used for this scan. IV Contrast dosage and agent: None. COMPARISON: January 23, 2023 CT FINDINGS: BRAIN PARENCHYMA: No intra- or extra-axial hemorrhage. No evidence of acute infarct. No intracranial mass or mass effect. Mild patchy periventricular and subcortical white matter hypodense chronic small vessel white matter ischemic change. There is preservation of the gordon/white matter interface. Posterior fossa structures are unremarkable. Carotid and vertebral atherosclerosis. CSF SPACES: Mild global cerebral volume loss. No hydrocephalus. Basal cisterns are patent. CALVARIUM, SKULL BASE, PARANASAL SINUSES AND MASTOID AIR CELLS: No acute osseous finding. Par[place]al sinuses are clear. Mastoid air cells are clear. ORBITS: Both globes, extraocular muscles, optic nerves and retrobulbar fat appear unremarkable. ASPECTS Score for Acute Strokes: 10 CT/Brain/Head without Contrast IMPRESSION: No CT evidence of acute intracranial hemorrhage or injury. Mild senescent changes. Electronically Signed: Yvon Heath MD at 22:39 EST Reading Location ID and State: [facility] / [place] Tel , Service support ,
--- NOTE | 2023-03-30 22:05 | RAD_ITS ---
INDICATION: ams EXAMINATION/TECHNIQUE: X-RAY - XR Chest 1 View COMPARISON: January 23, 2023. FINDINGS: LINES/DEVICES: None. LUNGS: Medial lung apices are obscured by chin. Left inferior lower lung patchy airspace opacification. No florid edema or effusion. No pneumothorax. MEDIASTINUM AND CARDIOVASCULAR STRUCTURES: Unchanged cardiomegaly. BONES AND SOFT TISSUES: Unremarkable. RAD/Chest 1 View (Portable) IMPRESSION: Retrocardiac left basilar patchy airspace opacification concerning for pneumonia in the appropriate setting. Follow-up radiograph would be recommended 6 weeks after treatment to ensure resolution.. If there is absence of clinical pneumonia consider CT characterization Electronically Signed: Yvon Heath MD at 22:44 EST ,
--- NOTE | 2023-03-30 22:45 | EDS_ITS ---
HPI History of Present Illness Chief Complaint: Mental Status Change Informant: patient, family and EMS Narrative Narrative: 82-year-old female brought to the emergency room with altered mental status. Patient moved into the [facility] 1.5 weeks ago. Family tells me she was diagnosed with Parkinson's versus Parkinson's dementia. She states she has not treated for these. Reportedly the patient has not been sleeping well. Please have been called out twice for aggressive behavior. Family notes that in the past 72 hours she has not really changed her personality from what it typically is. Family states that at times she is very cooperative at times very confused. [facility] Medical History Abdominal pain Abnormal stress test Acute respiratory failure with hypoxia BRENT (acute kidney injury) Anemia Atherosclerotic heart disease of [place] coronary artery without angina pectoris Back pain Bloating Cerebrovascular disease Chest pain CHF (congestive heart failure) Chronic low back pain Chronic systolic heart failure CKD (chronic kidney disease) stage 3, GFR 30-59 ml/min Contusion of right hand Contusion of right knee DDD (degenerative disc disease), lumbar Diaphragmatic hernia without mention of obstruction or gangrene Difficulty balancing Dizziness Dyspnea Esophagitis Fibromyalgia Gait instability Laceration of lip without foreign body Limb weakness Non-STEMI (non-ST elevated myocardial infarction) Other chest pain 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 Polyneuropathy Pure hypercholesterolemia Segmental and somatic dysfunction of cervical region Segmental and somatic dysfunction of lumbar region Segmental and somatic dysfunction of pelvic region Segmental and somatic dysfunction of pelvic region Segmental and somatic dysfunction of thoracic region Shoulder pain SOB (shortness of breath) SVT (supraventricular tachycardia) Takotsubo cardiomyopathy Tooth fracture Unspecified fall, initial encounter Unspecified hemorrhoids Wrist pain, left Home Medications cholecalciferol (vitamin D3) 50 mcg (2,000 unit) tablet 50 mcg PO DAILY VITAMIN 07/27/21 [History Last Taken Unknown] levothyroxine 50 mcg tablet 50 mcg PO DAILY THYROID 07/27/21 [History Last Taken Unknown] multivitamin with minerals-folic acid 120 mcg chewable tablet (Centrum Adult 50 Plus Fresh-Fruity) 1 tab PO DAILY VITAMIN 04/20/22 [History Last Taken Unknown] amlodipine 2.5 mg tablet 2.5 mg PO DAILY BLOOD PRESSURE #90 tabs 10/17/22 [Rx Last Taken Unknown] lisinopril 10 mg tablet 10 mg PO DAILY BLOOD PRESSURE #90 tabs 10/17/22 [Rx Last Taken Unknown] trazodone 50 mg tablet mg 03/31/23 [History Last Taken Unknown] Allergy/AdvReac Type Severity Reaction Status Date / Time codeine Allergy Severe Nausea Verified 01/23/23 17:20 oxycodone HCl Allergy Severe Nausea Verified 01/23/23 17:20 [From OxyContin] celecoxib [From Celebrex] Allergy Intermediate Other Verified 01/23/23 17:20 Family History Father , age 91 Cancer Hypertension Aunt Diabetes Breast cancer 2 aunts Grandfather Diabetes Parkinson's disease Mother Hypertension Surgical History History of appendectomy History of cataract surgery History of section History of hysterectomy History of left heart catheterization (09/15/17) History of open reduction and internal fixation (ORIF) procedure History of total left knee replacement Social History Smoking Status: Never smoker second hand exposure: No alcohol intake: never substance use type: does not use caffeine: Yes Type: tea Number of servings: 1 seatbelt use: always ROS ROS ED Constitutional Constitutional ED: Denies chills, fever(s) or weight loss Eyes Eyes: Denies change in vision or diplopia ENT ENT ED: Denies ear pain, rhinorrhea or sore throat Cardiovascular Cardiovascular: Denies chest pain, orthopnea, palpitations or racing heartbeat Respiratory/Chest Respiratory/Chest: Denies cough, dyspnea or orthopnea Gastrointestinal Gastrointestinal: Denies abdominal pain, diarrhea, nausea or vomiting Genitourinary Genitourinary ED: Denies dysuria, hematuria or urinary frequency Musculoskeletal Musculoskeletal: Denies arthralgias or myalgias Integumentary Denies abscess or rash Neurologic Neurologic: Reports other; Denies headache(s) or weakness Psychiatric Psychiatric: Reports depression and other Details: Denies hallucinations. Reported delusions ; Denies anxiety, suicidal ideation or suicidal thoughts Endocrine Endocrinology: Denies polydipsia, polyphagia or polyuria Allergic/Immunologic Allergic/Immunologic ED: Denies mouth swelling, tongue swelling or urticaria EXAM Physical Exam Const Vital Signs: 03/30/23 18:54 03/30/23 20:53 03/30/23 22:53 Temperature 97.8 F Temperature Source Oral Pulse Rate 73 77 74 Respiratory Rate 18 18 17 Blood Pressure 113/60 Blood Pressure Mean 77 Pulse Ox 97 100 98 Oxygen Delivery Method Room Air Room Air Positive well nourished and well developed General Appearance ED: well developed HEENT Reports normocephalic, head/scalp atraumatic and moist mucous membranes Eyes PERRL and EOMs intact bilaterally Neck no lymphadenopathy, supple and no JVD Resp normal respiratory effort and clear to auscultation bilaterally Cardio regular rate, regular rhythm and no murmurs GI normal to inspection, nondistended, normoactive bowel sounds and non-tender Palpation: soft Back/Spine no CVA tenderness and normal ROM Extremity normal to inspection General Extremety ED: Negative for edema General Extremity: Negative for edema Neuro CN's II-XII intact bilaterally Neuro Narrative: Patient misses the year but knows her name and where she is at Sensorium / Orientation: alert and orientation impaired Motor Exam: strength 5/5 throughout Psych Psych Narrative: Patient appears somewhat timid and possibly scared. She denies any auditory or visual hallucinations. Mood & Affect: depressed and anxious; Negative for tearful Skin no rashes or lesions noted and no wounds MDM MDM MDM Narrative Medical decision making narrative: Basic blood work was obtained. Toxicology work-up is negative. Urinalysis is now. My independent interpretation of the chest x-ray is no acute process. Radiology notes a left basilar opacity. Given that she is not having fever or leukocytosis cough or shortness of breath I doubt that this is pneumonia. She can have a repeat follow-up chest x-ray to ensure resolution or if needed CT on an outpatient basis. CT of the brain is negative for acute findings or hemorrhage. Patient's TSH is normal. COVID test is negative. I am going to have crisis evaluate the patient for possible placement for stabilization. Again she has had the police out at the unit twice this week. At around 0045 hrs. the patient became increasingly agitated here in the department. We needed to move her closer to a nurses station. She was not redirectable. She began to threaten staff members. 5 mg of Haldol IM was administered. I will speak with crisis regarding potential transfer to [facility] facility for stabilization. History & Record Review Discussion w/independent historian: EMS personnel, Patient and Family Lab Data Attestation: I reviewed the patient's lab results. Labs: Laboratory Results - last 24 hr 03/30/23 03/30/23 20:40 21:30 WBC 7.3 RBC 3.55 L Hgb 10.8 L Hct 33.5 L MCV 94.4 MCH 30.4 MCHC 32.2 RDW Std Deviation 46.0 H RDW Coeff of Tom 13.3 Plt Count 188 MPV 10.1 Immature Gran % (Auto) 0.100 Neut % (Auto) 77.1 H Lymph % (Auto) 14.1 L [place] % (Auto) 7.8 Eos % (Auto) 0.5 Baso % (Auto) 0.4 Absolute Neuts (auto) 5.6 Absolute Lymphs (auto) 1.03 Nucleated RBC % 0 Sodium 143 Potassium 4.4 Chloride 111 H Carbon Dioxide 28.0 Anion Gap 4 L BUN 35 H Creatinine 1.04 H Est GFR (MDRD) Af Amer 65 Est GFR (MDRD) Non-Af 54 L BUN/Creatinine Ratio 33.7 H Glucose 107 H Calcium 9.0 Total Bilirubin 0.20 Direct Bilirubin 0.08 AST 16 ALT 24 Alkaline Phosphatase 72 Troponin I High Sens 12 Total Protein 6.1 L Albumin 3.1 L Globulin 3.0 TSH 2.40 Urine Color Yellow Urine Clarity Clear Urine pH 6.0 Ur Specific [place] 1.020 Urine Protein 15 H Urine Glucose (UA) Normal Urine Ketones 5 H Urine Occult Blood Negative Urine Nitrite Negative Urine Bilirubin Negative Urine Urobilinogen 1 H Ur Leukocyte Esterase 25 H Urine RBC 0 SEEN Urine WBC 0-5 SEEN Ur Squamous Epith Cells 0-5 SEEN Urine Bacteria 0 SEEN Urine Mucus 0 SEEN Urine Opiates Screen NEGATIVE Urine Methadone Screen NEGATIVE Ur Barbiturates Screen NEGATIVE Ur Phencyclidine Scrn NEGATIVE Ur Amphetamines Screen NEGATIVE MDMA (Ecstasy) Screen NEGATIVE U Benzodiazepines Scrn NEGATIVE Urine Cocaine Screen NEGATIVE U Cannabinoids Screen NEGATIVE Ur Drug Screen Comment Ethyl Alcohol < 3.0 Radiography Diagnostic Testing: Clinical Impression(s) from Imaging Studies Brain CT 03/30/23 22:00 IMPRESSION: No CT evidence of acute intracranial hemorrhage or injury. Mild senescent changes. Electronically Signed: Yvon Heath MD at 22:39 EST , Chest X-Ray 03/30/23 22:05 IMPRESSION: Retrocardiac left basilar patchy airspace opacification concerning for pneumonia in the appropriate setting. Follow-up radiograph would be recommended 6 weeks after treatment to ensure resolution.. If there is absence of clinical pneumonia consider CT characterization Electronically Signed: Yvon Heath MD at 22:44 EST , EKG Initial EKG: Attestation: I personally reviewed and interpreted this EKG as follows: Comments: Sinus rhythm with a ventricular rate of 52 bpm. No concerning features of ACS noted. 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 Discharge Plan Triage Chief Complaint: Mental Status Change ED Provider: Adin Cadet Dx/Rx/DC Orders Clinical Impression: Dementia with behavioral disturbance, Essential hypertension Prescriptions: No Action levothyroxine 50 mcg tablet 50 mcg PO DAILY cholecalciferol (vitamin D3) 50 mcg (2,000 unit) tablet 50 mcg PO DAILY multivit with min-folic acid [Centrum Adult 50 Fresh-Fruity] 120 mcg tablet,chewable 1 tab PO DAILY lisinopril 10 mg tablet 10 mg PO DAILY Qty: 90 3RF amlodipine 2.5 mg tablet 2.5 mg PO DAILY Qty: 90 3RF trazodone 50 mg tablet Primary Care Provider: Moy Cruz Referrals: Moy Cruz MD [Primary Care Provider] -
[2023-03-30 22:53] VITALS: PULSE 74; RESP 17; O2SAT 98
--- NOTE | 2023-03-30 23:11 | NURSING ---
CALLED [facility] AT [phone] AND FAXED CHART
[2023-03-31] MEDS: Haloperidol Lactate 5 MG/ML Vial IM (00:54)
[2023-03-31 06:00] VITALS: RESP 18
[2023-03-31 07:06] VITALS: BP 160/62; PULSE 81; RESP 17; O2SAT 99
--- NOTE | 2023-03-31 08:51 | ED.RN ---
Patient ate 100% of breakfast. Up to BSC with minimal help. Alert and cooperative with staff.
[2023-03-31 09:00] VITALS: BP 148/78; PULSE 68; RESP 18; O2SAT 98
--- NOTE | 2023-03-31 09:16 | NURSING ---
FAXED COVID AND EKG TO [facility]
--- NOTE | 2023-03-31 10:31 | NURSING ---
JOSEPH MARINA, CALLED. WE PUT PATIENT ON WAIT LIST TILL MONDAY
--- NOTE | 2023-03-31 10:41 | NURSING ---
TALKED TO JOHANNE COBURN.
[2023-03-31 10:42] VITALS: BMI 30.2
--- NOTE | 2023-03-31 10:54 | ED.RN ---
Patient given towels to fold. Sitter remains at bedside. Spoke with Yaquelin at the crisis center, she is attempting to get her accepted to [facility].
--- NOTE | 2023-03-31 11:25 | ED.RN ---
Spoke to nursing resident at [facility], she has requested POA paperwork from the sister and will fax to us once obtained. Multiple family members have reached out for information about patient, information to be given once POA verification is made to the appropriate family member. The director at [facility] and the sister state there is a problem with communication between family members and family relationship issues in regard to patient information. Niece was here and explained information will be given to POA when established.
--- NOTE | 2023-03-31 12:52 | ED.RN ---
Sister of patient approached desk and stated that she was POA and waved papers in the air. She demanded to know what was happening with her sister, this nurse explained to the POA that I would be in to speak with her after I finished working on a critical patient. ELIE became argumentative about family issues, again this nurse asked POA to step into room that I would be in to speak with her shortly. ELIE was rude and abrupt with this nurse, when asked to please not continue to be rude, POA walked away from station. This nurse went into room to speak with POA and update appropriately, POA held up paperwork and requested this nurse to MAKE A COPY to place on chart. Information in regard to care given to POA and explained the process for the patient to be placed in a dementia unit.
--- NOTE | 2023-03-31 13:34 | ED.RN ---
Patient is refusing to take any pills. EMD aware. EMD states not clinically warranted at this time. Crisis aware.
--- NOTE | 2023-03-31 16:14 | ED.RN ---
Patient eating and sitting up in chair with sitter at bedside. Patient confused to time/situation.
--- NOTE | 2023-03-31 17:05 | ED.RN ---
Patient up to BSC, patient had moderate formed stool.
--- NOTE | 2023-03-31 17:19 | CM.ED ---
Social Work Crisis continues to work on placement. Pt is now referred to [facility] and in review. Pt reportedly can go to [facility] on Monday. Crisis reports Peter requests crisis to stop further placement efforts as they want patient to go to [facility]. bench worker helper reports they explained that is not an option and they will continue with placement referrals. Pt has been denied or no beds available at most [facility] facilities. Kaylynn Melara ICE CREAM MAN, SUPERVISOR REWORK
[2023-03-31 18:13] VITALS: BP 136/53; PULSE 67; RESP 16; O2SAT 96
[2023-03-31 23:25] VITALS: PULSE 70; RESP 16; O2SAT 98
[2023-04-01] VITALS (10 sets, daily range): BP systolic 139–162; BP diastolic 60–74; PULSE 64–81; RESP 14–18; O2SAT 97–99
--- NOTE | 2023-04-01 10:20 | ED.RN ---
CALLED [facility] FOR UPDATE, SAID THEY WOULD CALL US BACK.
--- NOTE | 2023-04-01 10:28 | ED.RN ---
THIS RN RECEIVED UPDATE FROM [facility]. PER COUNSELOR PT IS AWAITING A BED AT [facility], THEY WILL NOT HAVE BEDS UNTIL MONDAY. PT IS ALSO REFERRED TO [facility], BUT [facility] HAS REQUESTED MORE INFORMATION FROM [facility]. JOHANNE TO FOLLOW UP TO FIND OUT WHAT ADDITIONAL INFORMATION IS REQUIRED.
--- NOTE | 2023-04-01 11:20 | CT_ITS ---
EXAM: CT CHEST WITHOUT INTRAVENOUS CONTRAST CLINICAL INDICATION: abnormal CXR; no cough/sob TECHNIQUE: Helically acquired images were obtained of the chest without intravenous contrast. This CT exam was performed using one or more of the following dose reduction techniques: automated exposure control, adjustment of the mA and/or kV according to patient size, and/or use of iterative reconstruction technique. COMPARISON: Chest radiograph 03/30/2023, CTA chest 07/10/2018 FINDINGS: LUNGS AND PLEURAL SPACES: Trace pleural effusion noted bilaterally associated with minor bibasilar atelectasis. No pulmonary consolidation. No mass. No pneumothorax. HEART: Stable cardiomegaly. No pericardial effusion. No significant coronary artery calcifications. MEDIASTINUM: Normal. No mediastinal or hilar adenopathy. Esophagus is unremarkable. No hiatal hernia. BONES/JOINTS: No suspicious lytic or blastic abnormality. VASCULATURE: Normal. No aortic aneurysm. LIVER: Stable hepatic segment [address]/Chest without Contrast IMPRESSION: 1. Cardiomegaly. 2. No acute pulmonary abnormality. Electronically Signed: Jamil Ward MD at 13:52 EST ,
[2023-04-01] MEDS: Multivitamins,Ther W-Minerals Tablet 1 TABLET PO (12:37)
[2023-04-01] MEDS: Cholecalciferol (VIT D3) 25 MCG TABLET (1,000 UNITS) 50 MCG PO (12:37)
[2023-04-01] MEDS: Levothyroxine 50 MCG Tablet PO (12:37)
[2023-04-01] MEDS: Lisinopril 10 MG Tablet PO (12:37)
[2023-04-01] MEDS: amLODIPine 2.5 MG Tablet PO (12:37)
--- NOTE | 2023-04-01 15:00 | ED.RN ---
THIS RN RECEIVED PHONE CALL FROM [facility]. [facility] REQUESTING RAPID COVID TEST WITHIN 24 HOURS, TO POSSIBLY ACCEPT PATIENT. DR. BRICEÑO INFORMED. COVID PENDING.
--- NOTE | 2023-04-01 18:55 | ED.RN ---
THIS RN CALLED PT SISTER AND POA. THIS RN SPOKE WITH SISTER FOR EXTENSIVE PERIOD OF TIME, EXPLAINING THE ISMAEL-PSYCH PROCESS TO SISTER. PT SISTER ASKS MANY QUESTIONS. THIS RN ANSWERS QUESTIONS BEST POSSIBLE. SISTER REPORTS THAT SHE WILL CALL [facility] AND HOPEFULLY GIVE CONSENT FOR PATIENT TO BE TREATED.
[2023-04-01] MEDS: traZODone 50 MG Tablet PO (21:23)
--- NOTE | 2023-04-01 21:50 | ED.RN ---
SPOKE W/KATIE AT [facility]. PT HAS BEEN ACCEPTED AND ROOM ASSIGNMENT IS 295. REPORT GIVEN.
== END 2023-04-01 23:04 ==
PROVIDERS: Emergency Provider Emergency Medicine; PCP Family Medicine; Visit Provider Emergency Medicine
DX: F03.918 Unspecified dementia, unspecified severity, with other behavioral disturbance (principal); I50.22 Chronic systolic (congestive) heart failure; N18.30 Chronic kidney disease, stage 3 unspecified; F32.A Depression, unspecified; E78.00 Pure hypercholesterolemia, unspecified; I25.10 Atherosclerotic heart disease of native coronary artery without angina pectoris; Z11.52 Encounter for screening for COVID-19; Z79.899 Other long term (current) drug therapy
CPT/HCPCS: 70450; 71045; 71250; 80048; 80076; 80307; 81001; 82077; 84443; 84484; 85025; 87811; 93005; 96372; 99285

== ENCOUNTER 2023-04-18 20:36 | Emergency (ER) | payer MEDICARE, SELFPAY ==
[2023-04-18 20:40] VITALS: BP 152/70; PULSE 80; RESP 15; TEMP 36.8; O2SAT 97; BMI 25.2
--- NOTE | 2023-04-18 21:25 | CT_ITS ---
INDICATION: Change in Mental Status EXAMINATION: CT BRAIN - CT Head or Brain W/O Contrast Injection TECHNIQUE: Multiple axial images were obtained of the head with sagittal and coronal reconstructed images. Individualized dose optimization techniques were used for this CT. IV contrast dosage and agent: None. COMPARISON: 03/30/2023 CT. FINDINGS: BRAIN PARENCHYMA: No evidence of an acute infarct or intracranial hemorrhage. No evidence of a mass. White matter changes consistent with mild chronic microvascular disease. CSF SPACES: The ventricles, sulci and subarachnoid cisterns are appropriate for age. CALVARIUM, SKULL BASE, PARANASAL SINUSES AND MASTOID AIR CELLS: No fracture. Mastoid air cells are clear. Visualized paranasal sinuses are unremarkable. ORBITS: The globes, extraocular muscles, optic nerves and retrobulbar fat are unremarkable. CT/Brain/Head without Contrast IMPRESSION: No acute intracranial abnormality. Electronically Signed: Jewel Freedman DO at 22:14 EST ,
--- NOTE | 2023-04-18 21:32 | EX.ED.DYSGE1 ---
HPI History of Present Illness Chief Complaint: Alt LOC Narrative Narrative: 82-year-old female from [facility] presenting with combative behavior. She has been at the [facility] recently. She was there for 14 days before she started to have combative behavior. She was sent to [place] [facility] for evaluation where she was combative here, and ultimately had to be pink slipped and sent to geriatric psych facility for reevaluation and was there for 2 weeks. Patient arrived to the [facility] today about 4 hours ago and had combative behavior and was sent to the ER for evaluation. Per her sister the patient had some kind of drugs including Seroquel and other not medication she does not know which was keeping her sedated while she was at [facility]. She reports that they gave her something before she left today to keep her sedated and when she got to the [facility] she was more agitated. She states he is never seen her sister like this. There is been no history of falls. No fevers, chills. No cough or shortness of breath. [facility] Medical History Abdominal pain Abnormal stress test Acute respiratory failure with hypoxia BRENT (acute kidney injury) Anemia Atherosclerotic heart disease of [place] coronary artery without angina pectoris Back pain Bloating Cerebrovascular disease Chest pain CHF (congestive heart failure) Chronic low back pain Chronic systolic heart failure CKD (chronic kidney disease) stage 3, GFR 30-59 ml/min Contusion of right hand Contusion of right knee DDD (degenerative disc disease), lumbar Diaphragmatic hernia without mention of obstruction or gangrene Difficulty balancing Dizziness Dyspnea Esophagitis Fibromyalgia Gait instability Laceration of lip without foreign body Limb weakness Non-STEMI (non-ST elevated myocardial infarction) Other chest pain Other correction (current) drug therapy Polyneuropathy Psychotic affective disorder Pure hypercholesterolemia Segmental and somatic dysfunction of cervical region Segmental and somatic dysfunction of lumbar region Segmental and somatic dysfunction of pelvic region Segmental and somatic dysfunction of pelvic region Segmental and somatic dysfunction of thoracic region Shoulder pain SOB (shortness of breath) SVT (supraventricular tachycardia) Takotsubo cardiomyopathy Tooth fracture Unspecified fall, initial encounter Unspecified hemorrhoids Wrist pain, left Home Medications cholecalciferol (vitamin D3) 50 mcg (2,000 unit) tablet 50 mcg PO DAILY VITAMIN 07/27/21 [History Last Taken Unknown] levothyroxine 50 mcg tablet 50 mcg PO DAILY THYROID 07/27/21 [History Last Taken Unknown] multivitamin with minerals-folic acid 120 mcg chewable tablet (Centrum Adult 50 Plus Fresh-Fruity) 1 tab PO DAILY VITAMIN 04/20/22 [History Last Taken Unknown] amlodipine 2.5 mg tablet 2.5 mg PO DAILY BLOOD PRESSURE #90 tabs 10/17/22 [Rx Last Taken Unknown] lisinopril 10 mg tablet 10 mg PO DAILY BLOOD PRESSURE #90 tabs 10/17/22 [Rx Last Taken Unknown] trazodone 50 mg tablet 25 mg PO QHS 03/31/23 [History Last Taken Unknown] aripiprazole 5 mg tablet (Abilify) 5 mg PO DAILY 04/18/23 [History Last Taken Unknown] gabapentin 100 mg capsule 100 mg PO BID 04/18/23 [History Last Taken Unknown] lorazepam 0.5 mg tablet (Ativan) 0.5 mg PO BID 04/18/23 [History Last Taken Unknown] Allergy/AdvReac Type Severity Reaction Status Date / Time codeine Allergy Severe Nausea Verified 04/18/23 21:52 oxycodone HCl Allergy Severe Nausea Verified 04/18/23 21:52 [From OxyContin] celecoxib [From Celebrex] Allergy Intermediate Other Verified 04/18/23 21:52 Family History Father , age 91 Cancer Hypertension Aunt Diabetes Breast cancer 2 aunts Grandfather Diabetes Parkinson's disease Mother Hypertension Surgical History History of appendectomy History of cataract surgery History of section History of hysterectomy History of left heart catheterization (09/15/17) History of open reduction and internal fixation (ORIF) procedure History of total left knee replacement Social History Smoking Status: Never smoker second hand exposure: No alcohol intake: never substance use type: does not use caffeine: Yes Type: tea Number of servings: 1 seatbelt use: always ROS ROS ED Review of Systems ROS Unobtainable: due to mental condition and due to mental status EXAM Physical Exam Const Vital Signs: 04/18/23 20:40 Temperature 98.2 F Temperature Source Oral Pulse Rate 80 Respiratory Rate 15 Blood Pressure 152/70 H Blood Pressure Mean 97 Pulse Ox 97 Oxygen Delivery Method Room Air Positive well nourished General Appearance ED: NAD; Negative for pallor HEENT Reports moist mucous membranes Negative for trauma Eyes PERRL and EOMs intact bilaterally Chest Wall inspection of chest normal Resp normal respiratory effort and clear to auscultation bilaterally Auscultation: Negative for rales or rhonchi Cardio regular rate and regular rhythm GI normal to inspection, nondistended, normoactive bowel sounds Neuro CN's II-XII intact bilaterally Sensorium / Orientation: alert Psych Psych Narrative: Confused Skin no rashes or lesions noted General Skin Exam: Negative for jaundice or pallor MDM MDM MDM Narrative Medical decision making narrative: Patient presenting with agitation. Her sister wants her evaluated again because she never seen her like this before. Patient recently discharged from [facility] after 2 weeks of being medicated and treated. She was sent back to the [facility] where she came from. She is only been there about 4 hours. No history of trauma or falls. Patient sister wants her to be rechecked. Differential includes intracranial hemorrhage, acute coronary syndrome, CHF, pneumonia, dehydration, electro abnormalities, UTI, dementia. CBC will be obtained to assess white blood cell count, hemoglobin, platelets. BMP to assess renal function and electrolytes. High-sensitivity troponin and EKG to assess for ischemia/dysrhythmia. Chest x-ray to rule out pneumonia or CHF. Urinalysis to assess for UTI. Urine drug screen to assess for drugs of abuse. COVID swab will be obtained. Patient with normal vital signs. Review of the medical record shows that this is exactly where the patient was last time. Screening lab work was obtained and is still unremarkable. COVID-negative. UA negative. CT brain negative. Will attempt to call Dr. Rivera to arrange follow-up but I believe the patient stable for discharge back to her facility as she just returned from [facility] facility. Impression: 1. Dementia 2. Agitation Lab Data Attestation: I reviewed the patient's lab results. Labs: Laboratory Results - last 24 hr 04/18/23 04/18/23 21:42 22:10 WBC 10.6 RBC 3.71 L Hgb 11.6 L Hct 34.6 L MCV 93.3 MCH 31.3 MCHC 33.5 RDW Std Deviation 43.4 RDW Coeff of Tom 12.7 Plt Count 209 MPV 10.0 Immature Gran % (Auto) 0.400 Neut % (Auto) 84.7 H Lymph % (Auto) 6.8 L [place] % (Auto) 7.4 Eos % (Auto) 0.4 Baso % (Auto) 0.3 Absolute Neuts (auto) 9.0 H Absolute Lymphs (auto) 0.72 L Nucleated RBC % 0 Sodium 141 Potassium 4.1 Chloride 109 H Carbon Dioxide 28.0 Anion Gap 4 L BUN 31 H Creatinine 1.03 H Estim Creat Clear Calc 33.88 Est GFR (MDRD) Af Amer 66 Est GFR (MDRD) Non-Af 55 L BUN/Creatinine Ratio 30.1 H Glucose 117 H Calcium 9.3 Urine Color Yellow Urine Clarity Clear Urine pH 5.0 Ur Specific Clifford 1.025 Urine Protein 15 H Urine Glucose (UA) Normal Urine Ketones Negative Urine Occult Blood Negative Urine Nitrite Negative Urine Bilirubin Negative Urine Urobilinogen Normal Ur Leukocyte Esterase Negative Urine RBC 0 SEEN Urine WBC 0 SEEN Ur Squamous Epith Cells 0 SEEN Urine Bacteria 0 SEEN Urine Mucus 0 SEEN Urine Opiates Screen NEGATIVE Urine Methadone Screen NEGATIVE Ur Barbiturates Screen NEGATIVE Ur Phencyclidine Scrn NEGATIVE Ur Amphetamines Screen NEGATIVE MDMA (Ecstasy) Screen NEGATIVE U Benzodiazepines Scrn NEGATIVE Urine Cocaine Screen NEGATIVE U Cannabinoids Screen NEGATIVE Ur Drug Screen Comment Ethyl Alcohol < 3.0 Radiography Diagnostic Testing: Clinical Impression(s) from Imaging Studies Brain CT 04/18/23 21:25 IMPRESSION: No acute intracranial abnormality. Electronically Signed: Jewel Freedman DO at 22:14 EST , Chest X-Ray 04/18/23 21:55 IMPRESSION: No evidence of acute cardiopulmonary disease. Electronically Signed: Jewel Freedman DO at 22:37 EST , Discharge Plan Triage Chief Complaint: Alt LOC ED Provider: Dillon Lowery Dx/Rx/DC Orders Instructions: ED DEMENTIA Alzheimer's Prescriptions: No Action levothyroxine 50 mcg tablet 50 mcg PO DAILY cholecalciferol (vitamin D3) 50 mcg (2,000 unit) tablet 50 mcg PO DAILY multivit with min-folic acid [Centrum Adult 50 Fresh-Fruity] 120 mcg tablet,chewable 1 tab PO DAILY lisinopril 10 mg tablet 10 mg PO DAILY Qty: 90 3RF amlodipine 2.5 mg tablet 2.5 mg PO DAILY Qty: 90 3RF trazodone 50 mg tablet 25 mg PO QHS aripiprazole [Abilify] 5 mg tablet 5 mg PO DAILY lorazepam [Ativan] 0.5 mg tablet 0.5 mg PO BID gabapentin 100 mg capsule 100 mg PO BID Primary Care Provider: Moy Cruz Referrals: Moy Cruz MD [Primary Care Provider] - Disposition Disposition: Home, Self Care
[2023-04-18 21:50] LABS: Absolute Lymphocyte Count 0.72 X10^3/uL (0.83-4.51); Basophil# 0.03 X10^3/uL; Basophil% 0.3 % (0-1); Eosinophil# 0.04 X10^3/uL; Eosinophils% 0.4 % (0-5); Hematocrit 34.6 % (37-47); Hemoglobin 11.6 g/dL (12.0-15.0); Lymphocyte # 0.72 X10^3/ul (0.83-4.51); Lymphocyte % 6.8 % (19-41); Mean Corp Hgb Conc 33.5 g/dL (32-36); Mean Corpuscular Hgb 31.3 pg (27.0-32.0); Mean Corpuscular Volume 93.3 fL (81-99); Monocyte# 0.78 X10^3/uL; Monocyte% 7.4 % (0-10); NRBC Flagged by Analyzer 0 % (0-5); Neutrophil # 8.95 X10^3/uL (2.7-7.7); Neutrophil % 84.7 % (47-70); Platelet Count 209 K/mm3 (150-450); RBC Distribution Width CV 12.7 % (11.6-14.6); RBC Distribution Width SD 43.4 fl (35.1-43.9); Red Blood Count 3.71 M/mm3 (4.2-5.4); White Blood Count 10.6 K/mm3 (4.4-11.0)
--- NOTE | 2023-04-18 21:55 | RAD_ITS ---
INDICATION: confusion EXAMINATION/TECHNIQUE: X-RAY - XR Chest 1 View COMPARISON: 03/30/2023 and 04/01/2023 CT. FINDINGS: LINES/DEVICES: None. LUNGS: No consolidation or evidence of an effusion. No evidence of edema or a pneumothorax. Stable left basilar atelectasis versus scarring. MEDIASTINUM AND CARDIOVASCULAR STRUCTURES: Cardiac silhouette is normal in size and contour. Mediastinum is unremarkable. BONES AND SOFT TISSUES: No acute abnormality. RAD/Chest 1 View (Portable) IMPRESSION: No evidence of acute cardiopulmonary disease. Electronically Signed: Jewel Freedman DO at 22:37 EST ,
[2023-04-18 22:11] LABS: Alcohol, Blood (Medical)-Serum < 3.0 mg/dL
[2023-04-18 22:12] LABS: Anion Gap 4 (5-15); BUN 31 mg/dL (7-18); BUN/Creat Ratio 30.1 RATIO (10-20); Calcium,Total 9.3 mg/dL (8.5-10.1); Chloride 109 mmol/L (98-107); Creatinine, Serum 1.03 mg/dL (0.55-1.02); EST Glomerular Filtration Rate 55 mL/min (>60); Est Glom Filt Rate - Afr Amer 66 mL/min (>60); Estimated Creatinine Clearance 33.88 ml/min; Glucose 117 mg/dL (74-106); Potassium 4.1 mmol/L (3.5-5.1); Sodium Level 141 mmol/L (136-145)
[2023-04-18 22:21] LABS: Bacteria 0 SEEN /hpf (None Seen); Mucous, Urine 0 SEEN /hpf (<or=2+); Red Blood Cells-Urine 0 SEEN /hpf (0-5); Squamous Epithelial Cells - UA 0 SEEN /hpf (5-10); White Blood Cells 0 SEEN /hpf (0-5)
[2023-04-18 22:24] LABS: Color, Urine Yellow (Yellow); Glucose, Dipstick Normal (Normal); Ketone-Dipstick Negative (Negative); Leukocyte Esterase-Dipstick Negative /ul (Negative); Nitrite-Dipstick Negative (Negative); Occult Blood-Urine Negative /ul (Negative); Protein-Dipstick 15 mg/dl (Negative); Specific Gravity, Urine 1.025 (1.002-1.030); Urine Bilirubin Dipstick Negative (Negative); Urine Clarity Clear (Clear); Urine Urobilinogen Normal (Normal)
[2023-04-18 22:52] LABS: Amphetamine Urine VISTA NEGATIVE (<1000 ng/mL); Barbiturate Urine VISTA NEGATIVE (< 200 ng/mL); Benzodiazepine Urine VISTA NEGATIVE (< 200 ng/mL); Cocaine Urine VISTA NEGATIVE (< 300 ng/mL); Ecstacy Urine VISTA NEGATIVE (< 500 ng/mL); Methadone Urine VISTA NEGATIVE (< 300 ng/mL); PCP Urine VISTA NEGATIVE (< 25 ng/mL); THC Urine VISTA NEGATIVE (< 50 ng/mL); Vista UDS pH Range 5
--- NOTE | 2023-04-18 23:20 | ED.RN ---
Patient continuously trying to get out of bed and leave. Pt states she needs to leave to go to an appointment. Pt is not directable at this time. Patient was moved to room 6 to try TV stimulus to relax patient without success. Sitter placed at bedside to ensure the safety of the patient.
[2023-04-19 00:18] VITALS: RESP 15
--- NOTE | 2023-04-19 00:45 | ED.RN ---
CALLED [facility] AND SPOKE WITH ANGIE REDDY WITH A NURSE UPDATE. INFORMED ANGIE THAT ALL LABS, URINE, COVID AND CT BRAIN RESULTS WERE ALL NEGATIVE. INFORMED BY ANGEI THAT SHE WOULD HAVE TO CHECK WITH DON AT [facility] TO SEE IF PATIENT CAN RETURN.
--- NOTE | 2023-04-19 01:18 | ED.RN ---
Spoke with Edda from [facility], she states that her DON is saying they cannot [facility] the [facility]. This RN states that the physician does not feel the patient needs inpatient psych treatment. This RN spoke with Edda from [facility] who states that the patient does not meet criteria for readmission into the psych facility. Edda from [facility] states she will call her DON back to discuss our options and then will call the ED back.
--- NOTE | 2023-04-19 01:52 | ED.RN ---
Pt continuously trying to get out of bed and trying to leave despite the sitter being at bedside. Pt began yelling at staff. Dr Byers gave orders to give haldol IM.
[2023-04-19] MEDS: Haloperidol Lactate 5 MG/ML Vial IM (01:57)
--- NOTE | 2023-04-19 02:07 | ED.RN ---
Edda from [facility] calls stating they will take patient back as long as we medicate her first. This RN updates nurse that we gave patient haldol and that we would set up transportation back to [facility] and give them a call back with an ETA.
[2023-04-19 03:48] VITALS: RESP 15
[2023-04-19] MEDS: Acetaminophen 500 MG Tablet 1000 MG PO (06:04)
[2023-04-19 06:19] VITALS: BP 152/70; PULSE 80; RESP 15; O2SAT 97
[2023-04-19 07:00] VITALS: BP 126/44; PULSE 88; RESP 15; TEMP 37.1; O2SAT 97
[2023-04-19 07:08] VITALS: BP 126/44; PULSE 88; RESP 15; TEMP 37.1; O2SAT 97
== END 2023-04-19 07:08 | disposition home or self-care (01) ==
PROVIDERS: Emergency Provider Student in an Organized Health Care Education/Training Program; PCP Family Medicine; Visit Provider Student in an Organized Health Care Education/Training Program
DX: F03.911 Unspecified dementia, unspecified severity, with agitation (principal); I50.22 Chronic systolic (congestive) heart failure; N18.30 Chronic kidney disease, stage 3 unspecified; I25.10 Atherosclerotic heart disease of native coronary artery without angina pectoris; M79.7 Fibromyalgia; E78.00 Pure hypercholesterolemia, unspecified; Z11.52 Encounter for screening for COVID-19; Z79.890 Hormone replacement therapy; Z79.899 Other long term (current) drug therapy
CPT/HCPCS: 70450; 71045; 80048; 80307; 81001; 82077; 85025; 87811; 96372; 99284

== ENCOUNTER 2023-05-14 21:06 | Emergency (ER) | payer MEDICARE, SELFPAY ==
[2023-05-14 21:07] VITALS: BP 131/58; PULSE 87; RESP 16; TEMP 36.7; O2SAT 95; BMI 24.4
[2023-05-14 21:10] VITALS: O2SAT 94
--- OUTSIDE RECORDS SUMMARY | 2023-05-14 21:38 | XMS RPT_ITS | CCD ---
Author Name Unknown Address [id number] [place] [address] Organization [facility] Care Team Providers Care Lining Ironer Name Role Phone Pavithra Reeves Unavailable Unavailable Bibi Hernandez Unavailable IMCA Unavailable Unavailable ANTONIO DACOSTA Unavailable Unavailable DESMOND JAMES Unavailable Unavailable DESMOND JAMES Unavailable Unavailable ANTONIO DACOSTA Unavailable Unavailable Antonio Dacosta MD Unavailable Antonio Dacosta Unavailable Desmond James MD Unavailable Dylan Cruz MD Primary Care Provider Antonio Dacosta Unavailable Desmond James MD Unavailable Dylan Cruz MD Primary Care Provider Antonio Dacosta Unavailable Desmond James MD Unavailable Dylan Cruz MD Primary Care Provider Antonio Dacosta Unavailable Desmond James MD Unavailable Antonio Dacosta MD Unavailable CRISTIN MCDANIELS Attending Unavailable DYLAN CRUZ Primary Care Unavailable DYLAN CRUZ Primary Care Unavailable DYLAN CRUZ Attending Unavailable DYLAN CRUZ Primary Care Unavailable DYLAN CRUZ Attending Unavailable DYLAN CRUZ Primary Care Unavailable ENRRIQUE REAVES Attending Unavailable DYLAN CRUZ Referring Unavailable DYLAN CRUZ Primary Care Unavailable DYLAN CRUZ Referring Unavailable DYLAN CRUZ Primary Care Unavailable DYLAN CRUZ Attending Unavailable DYLAN CRUZ Primary Care Unavailable ROSAURA KIMBALL Attending Unavailable ELDERDYLAN DAVILA Primary Care Unavailable ALLYSSA PACHECO Referring Unavailable DYLAN CRUZ Primary Care Unavailable ALLYSSA PACHECO Attending Unavailable DYLAN CRUZ Attending Unavailable DYLAN CRUZ Primary Care Unavailable JEOVANNY MACIAS JR Attending Unavailable DYLAN CRUZ Primary Care Unavailable DYLAN CRUZ Primary Care Unavailable ENRRIQUE REAVES Attending Unavailable DYLAN CRUZ Referring Unavailable DYLAN CRUZ Primary Care Unavailable DYLAN CRUZ Primary Care Unavailable DYLAN CRUZ Attending Unavailable Allergies Allergy Classification Reported Allergen(s) Allergy Type Date of Onset Reaction(s) Facility (20 sources) codeine; Translations: [CODEINE] drug allergy 5 GI [facility] [employer] Work Phone: (20 sources) oxyCODONE; Translations: [OXYCODONE HCL] Drug Allergy 9 GI [facility] Repository (20 sources) celecoxib; Translations: [CELECOXIB] Drug Allergy 2 Mental Status Change [facility] Medications Current Medications Medication Drug Class(es) Dates Sig (Normalized) Sig (Original) LORazepam 0.5 mg oral tablet (2 sources) Benzodiazepine Start: 04-20-2023 End: 07-19-2023 take 0.5 mg by mouth every twelve hours as needed for anxiety and anxiety LORazepam (ATIVAN) 0.5 mg Indications: Anxiety Take 1 tablet by mouth two times a day as needed (anxiety amd agitation) for up to 90 days. 30 tablet 2 04/20/2023 07/19/2023 Active Completed/Discontinued Medications Medication Drug Class(es) Dates Sig (Normalized) Sig (Original) amLODIPine 2.5 mg oral tablet (20 sources) Dihydropyridine Calcium Channel Maykel Start: 08-22-2022 take 1 tablet by mouth once daily amLODIPine (NORVASC) 2.5 mg tablet Take 2.5 mg by mouth once daily. 0 08/22/2022 Active Problems Active Problems Problem Classification Problem Date Documented Da te Episodic/Chronic Abdominal hernia (12 sources) Incisional hernia; Translations: [Hernia of abdominal cavity] Resolved: 4 08-24-2013 Episodic Abdominal pain (4 sources) Right lower quadrant pain; Translations: [Right lower quadrant pain] 05-12-2009 Episodic Acute myocardial infarction (20 sources) Myocardial infarction; Translations: [Non-ST elevation (NSTEMI) myocardial infarction] Onset: 8 05-18-2018 Chronic Anxiety disorders (20 sources) Anxiety state; Translations: [Generalized anxiety disorder] 05-12-2009 Chronic Cardiac dysrhythmias (20 sources) Supraventricular tachycardia; Translations: [Supraventricular tachycardia] Onset: 8 05-18-2018 Chronic Cardiac dysrhythmias (20 sources) Palpitations; Translations: [Palpitations] Onset: 8 04-27-2018 Episodic Chronic kidney disease (11 sources) Chronic kidney disease stage 3A ; Translations: [Chronic kidney disease, stage 3a (HCC)] Onset: Chronic Coronary atherosclerosis and other heart disease (20 sources) Coronary arteriosclerosis; 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] Onset: 7 12-28-2016 Chronic Deficiency and other anemia (20 sources) Anemia; Translations: [Other specified anemias] 05-12-2009 Episodic Delirium, dementia, and amnestic and other cognitive disorders (1 source) Dementia; Translations: [Unspecified dementia without behavioral disturbance] 04-24-2023 Chronic Disorders of lipid metabolism (20 sources) Hyperlipidemia; Translations: [Hyperlipidemia, unspecified] Onset: 6 03-18-2016 Chronic E Codes: Fall (1 source) Fall in home; Translations: [Unspecified fall, initial encounter] Episodic Esophageal disorders (20 sources) Gastroesophageal reflux disease; Translations: [Gastro-esophageal reflux disease without esophagitis] Onset: 9 01-04-2011 Chronic Essential hypertension (20 sources) Hypertensive disorder; Translations: [Benign essential hypertension] Onset: 1 02-04-2016 Chronic Hemorrhoids (20 sources) Hemorrhoids; Translations: [Unspecified hemorrhoids] 05-12-2009 Episodic Immunizations and screening for infectious disease (2 sources) Patient encounter status; Translations: [Encounter for immunization] Onset: 3 02-27-2023 Episodic Nausea and vomiting (4 sources) Nausea; Translations: [Nausea] Episodic Other aftercare (1 source) Post-discharge follow-up; Translations: [Encounter for follow-up examination after completed treatment for conditions other than malignant neoplasm] Episodic Other and ill-defined heart disease (1 source) Takotsubo syndrome; Translations: [Takotsubo syndrome] Onset: 8 Chronic Other and ill-defined heart disease (20 sources) Takotsubo cardiomyopathy; Translations: [Takotsubo syndrome] Onset: 8 04-27-2018 Chronic Other bone disease and musculoskeletal deformities (20 sources) Disorder of skeletal system; Translations: [Disorder of bone, unspecified] 05-12-2009 Episodic Other connective tissue disease (3 sources) Paraparesis; Translations: [Other symptoms and signs involving the musculoskeletal system] Episodic Other connective tissue disease (1 source) Other symptoms and signs involving the musculoskeletal system; Translations: [Leg weakness, bilateral] Onset: 3 Episodic Other disorders of stomach and duodenum (1 source) Upset stomach; Translations: [Functional dyspepsia] 01-05-2023 Episodic Other ear and sense organ disorders (2 sources) Bilateral tinnitus; Translations: [Tinnitus, bilateral] Episodic Other gastrointestinal disorders (1 source) Diarrhea; Translations: [Diarrhea, unspecified] Episodic Other gastrointestinal disorders (1 source) Abdominal bloating; Translations: [Abdominal distension (gaseous)] Episodic Other nervous system disorders (1 source) Impairment of balance; Translations: [Other abnormalities of gait and mobility] 02-27-2023 Episodic Other nervous system disorders (1 source) Other abnormalities of gait and mobility; Translations: [Balance problems] Onset: 3 Episodic Other nutritional; endocrine; and metabolic disorders (4 sources) Body mass index (BMI) 30.0-30.9, adult; Translations: [Body mass index (BMI) 30.0-30.9, adult] Onset: 6 03-18-2016 Chronic Other skin disorders (1 source) Nail deformity; Translations: [Other nail disorders] Episodic Parkinson`s disease (20 sources) Parkinson's disease; Translations: [Parkinson's disease] Onset: 0 03-31-2020 Chronic Residual codes; unclassified (1 source) Amnesia; Translations: [Other amnesia] 03-01-2023 Episodic Spondylosis; intervertebral disc disorders; other back problems (1 source) Degeneration of lumbar intervertebral disc; Translations: [Other intervertebral disc degeneration, lumbar region] 03-01-2023 Chronic Thyroid disorders (20 sources) Acquired hypothyroidism; Translations: [Hypothyroidism, unspecified] Onset: 8 04-27-2018 Chronic Unclassified (1 source) Unknown / UNK(Unknown) Onset: 9 Past or Other Problems Problem Classification Problem Date Documented Da te Episodic/Chronic Conditions associated with dizziness or vertigo (20 sources) Dizziness and giddiness; Translations: [Dizziness and giddiness] Onset: 02-10-2007 05-12-2009 Episodic Deficiency and other anemia (1 source) Other specified anemias; Translations: [Anemia due to other cause, not classified] Onset: 05-12-2009 Episodic Fracture of lower limb (20 sources) Fracture of lower limb; Translations: [Unspecified fracture of unspecified lower leg, initial encounter for closed fracture] Onset: 05-12-2009 05-12-2009 Episodic Malaise and fatigue (20 sources) Asthenia; Translations: [Weakness] Onset: 03-21-2019 03-21-2019 Episodic Nonspecific chest pain (9 sources) Chest pain, unspecified; Translations: [Chest pain] Onset: 12-16-2008 02-04-2016 Episodic Other aftercare (4 sources) Other senior living (current) drug therapy; Translations: [Other senior living (current) drug therapy] Onset: 03-18-2016 03-18-2016 Episodic Other circulatory disease (4 sources) Abnormal result of cardiovascular function study, unspecified; Translations: [Abnormal result of cardiovascular function study, unspecified] Onset: 02-04-2016 02-04-2016 Episodic Other circulatory disease (20 sources) Orthostatic hypotension; Translations: [Orthostatic hypotension] Onset: 12-16-2008 05-12-2009 Episodic Other connective tissue disease (20 sources) Fibromyalgia; Translations: [Fibromyalgia] Onset: 10-20-2009 12-31-2009 Episodic Other gastrointestinal disorders (1 source) Abdominal distension (gaseous); Translations: [Bloating] Onset: 09-13-2022 Episodic Other nervous system disorders (20 sources) Abnormal gait; Translations: [Unsteadiness on feet] Onset: 09-04-2018 09-04-2018 Episodic Other non-traumatic joint disorders (20 sources) Pain in left knee; Translations: [Pain in joint, lower leg] Onset: 10-20-2009 12-31-2009 Episodic Otitis media and related conditions (4 sources) Otitis media; Translations: [Otitis media, unspecified, unspecified ear] Onset: 07-02-2010 07-05-2010 Episodic Spondylosis; intervertebral disc disorders; other back problems (20 sources) Sciatica; Translations: [Sciatica, unspecified side] Onset: 01-28-2009 05-12-2009 Episodic Results Test Name Value Interpretation Reference Range Facil it Vital Signs Date Time Vital Sign Value Performing Clinician Facility 03-01-2023 12:06-0400 Body weight 55.79 kg Rosaura Kimball PA-C Work Phone: [facility] 03-01-2023 12:06-0400 Diastolic blood pressure 68 mm[Hg] Rosaura Kimball PA-C Work Phone: [facility] 03-01-2023 12:06-0400 Heart rate 68 /min Rosaura Kimball PA-C Work Phone: [facility] 03-01-2023 12:06-0400 Respiratory rate 18 /min Rosaura Kimball PA-C Work Phone: [facility] 03-01-2023 12:06-0400 SaO2% (BldA) [Mass fraction] 98 % Rosaura Kimball PA-C Work Phone: [facility] 03-01-2023 12:06-0400 Systolic blood pressure 127 mm[Hg] Rosaura Ibarraer PA-C Work Phone: [facility] 02-27-2023 10:19-0400 Body weight 55.79 kg Allyssa Pacheco APRN.VIAL GAUGER Work Phone: [facility] 02-27-2023 10:19-0400 Diastolic blood pressure 70 mm[Hg] Allyssa Pacheco APRN.VIAL GAUGER Work Phone: [facility] 02-27-2023 10:19-0400 Heart rate 52 /min Allyssa Centenohof [employer]PATCHER.VIAL GAUGER Work Phone: [facility] 02-27-2023 10:19-0400 Respiratory rate 16 /min Allyssa Centenohof [employer] PLANT DISPATCHER.VIAL GAUGER Work Phone: [facility] 02-27-2023 10:19-0400 SaO2% (BldA) [Mass fraction] 95 % Allyssasandor Centenohof [employer] PLANT DISPATCHER.VIAL GAUGER Work Phone: [facility] 02-27-2023 10:19-0400 Systolic blood pressure 122 mm[Hg] Allyssa Centenohof [employer] PLANT DISPATCHER.VIAL GAUGER Work Phone: [facility] 01-05-2023 15:10-0400 Body weight 59.38 kg Dylan Cruz MD Work Phone: [facility] 01-05-2023 15:10-0400 Diastolic blood pressure 88 mm[Hg] Dylan Cruz MD Work Phone: [facility] 01-05-2023 15:10-0400 Heart rate 74 /min Dylan Cruz MD Work Phone: [facility] 01-05-2023 15:10-0400 Respiratory rate 16 /min Dylan Cruz MD Work Phone: [facility] 01-05-2023 15:10-0400 Systolic blood pressure 150 mm[Hg] Dylan Cruz MD Work Phone: [facility] 10-17-2022 13:06-0400 Body weight 58.24 kg Enrrique Srikanth [employer] DISPATCHER.VIAL GAUGER Work Phone: [facility] 10-17-2022 13:06-0400 Diastolic blood pressure 72 mm[Hg] Enrrique Srikanth [employer] DISPATCHER.VIAL GAUGER Work Phone: [facility] 10-17-2022 13:06-0400 Heart rate 105 /min Enrrique Srikanth [employer] DISPATCHER.VIAL GAUGER Work Phone: [facility] 06-05-2023 13:06-0400 Respiratory rate 16 /min Enrrique Reaves [employer] DISPATCHER.VIAL GAUGER Work Phone: [facility] 10-17-2022 13:06-0400 SaO2% (BldA) [Mass fraction] 99 % Enrrique Reaves [employer] DISPATCHER.VIAL GAUGER Work Phone: [facility] 10-17-2022 13:06-0400 Systolic blood pressure 120 mm[Hg] Enrrique Reaves [employer] DISPATCHER.VIAL GAUGER Work Phone: [facility] 09-13-2022 14:09-0400 Body weight 58.06 kg Dylan Cruz MD Work Phone: [facility] 09-13-2022 14:09-0400 Diastolic blood pressure 84 mm[Hg] Dylan Cruz MD Work Phone: [facility] 09-13-2022 14:09-0400 Heart rate 76 /min Dylan Cruz MD Work Phone: [facility] 09-13-2022 14:09-0400 Respiratory rate 16 /min Dylan Cruz MD Work Phone: [facility] 09-13-2022 14:09-0400 Systolic blood pressure 136 mm[Hg] Dylan Cruz MD Work Phone: [facility] 08-08-2022 11:19-0400 Body weight 58.51 kg Cristin Mcdaniels [employer] DISPATCHER.VIAL GAUGER Work Phone: [facility] 08-08-2022 11:19-0400 Diastolic blood pressure 70 mm[Hg] Cristin Mcdaniels [employer] DISPATCHER.VIAL GAUGER Work Phone: [facility] 08-08-2022 11:19-0400 Heart rate 110 /min Cristin Mcdaniels [employer] DISPATCHER.VIAL GAUGER Work Phone: [facility] 08-08-2022 11:19-0400 Respiratory rate 14 /min Cristin Mcdaniels [employer] DISPATCHER.VIAL GAUGER Work Phone: [facility] 08-08-2022 11:19-0400 Systolic blood pressure 128 mm[Hg] Cristin Mcdaniels [employer] DISPATCHER.VIAL GAUGER Work Phone: [facility] 08-05-2022 11:27-0400 Body weight 58.92 kg Dylan Cruz MD Work Phone: [facility] 08-05-2022 11:27-0400 Diastolic blood pressure 80 mm[Hg] Dylan Cruz MD Work Phone: [facility] 08-05-2022 11:27-0400 Heart rate 78 /min Dylan Cruz MD Work Phone: [facility] 08-05-2022 11:27-0400 Respiratory rate 16 /min Dylan Cruz MD Work Phone: [facility] 08-05-2022 11:27-0400 Systolic blood pressure 120 mm[Hg] Dylan Cruz MD Work Phone: [facility] 06-13-2022 13:41-0500 Body weight 58.51 kg Dylan Cruz MD Work Phone: [facility] 06-13-2022 13:41-0500 Diastolic blood pressure 84 mm[Hg] Dylan Cruz MD Work Phone: [facility] 06-13-2022 13:41-0500 Heart rate 100 /min Dylan Cruz MD Work Phone: [facility] 06-13-2022 13:41-0500 Respiratory rate 16 /min Dylna Cruz MD Work Phone: [facility] 06-13-2022 13:41-0500 Systolic blood pressure 132 mm[Hg] Dylan Cruz MD Work Phone: [facility] 06-06-2022 09:53-0500 Body temperature 97.81 [degF] Enrrique Reaves [employer] DISPATCHER.VIAL GAUGER Work Phone: [facility] 06-06-2022 09:53-0500 Body weight 58.06 kg Enrrique Reaves [employer] DISPATCHER.VIAL GAUGER Work Phone: [facility] 06-06-2022 09:53-0500 Diastolic blood pressure 80 mm[Hg] Enrrique Reaves [employer] DISPATCHER.VIAL GAUGER Work Phone: [facility] 06-06-2022 09:53-0500 Heart rate 103 /min Enrrique Srikanth [employer] DISPATCHER.VIAL GAUGER Work Phone: [facility] 06-06-2022 09:53-0500 Respiratory rate 16 /min Enrrique Srikanth [employer] DISPATCHER.VIAL GAUGER Work Phone: [facility] 06-06-2022 09:53-0500 SaO2% (BldA) [Mass fraction] 97 % Enrriquetyler Reaves [employer] DISPATCHER.VIAL GAUGER Work Phone: [facility] 06-06-2022 09:53-0500 Systolic blood pressure 136 mm[Hg] Enrrique Srikanth [employer] DISPATCHER.VIAL GAUGER Work Phone: [facility] 05-17-2022 11:03-0500 Body weight 61.83 kg Dylan Cruz MD Work Phone: [facility] 05-17-2022 11:03-0500 Diastolic blood pressure 74 mm[Hg] Dylan Cruz MD Work Phone: [facility] 05-17-2022 11:03-0500 Heart rate 94 /min Dylan Cruz MD Work Phone: [facility] 05-17-2022 11:03-0500 Respiratory rate 18 /min Dylan Cruz MD Work Phone: [facility] 05-17-2022 11:03-0500 Systolic blood pressure 126 mm[Hg] Dylan Cruz MD Work Phone: [facility] 12-13-2021 12:58-0400 Body temperature 98.2 [degF] Enrrique Srikanth [employer] DISPATCHER.VIAL GAUGER Work Phone: [facility] 12-13-2021 12:58-0400 Body weight 60.33 kg Enrrique Reaves [employer] DISPATCHER.VIAL GAUGER Work Phone: [facility] 12-13-2021 12:58-0400 Diastolic blood pressure 72 mm[Hg] Enrrique Srikanth [employer] DISPATCHER.VIAL GAUGER Work Phone: [facility] 12-13-2021 12:58-0400 Heart rate 96 /min Enrrique Srikanth [employer] DISPATCHER.VIAL GAUGER Work Phone: [facility] 12-13-2021 12:58-0400 Respiratory rate 16 /min Enrrique Srikanth [employer] DISPATCHER.VIAL GAUGER Work Phone: [facility] 12-13-2021 12:58-0400 Systolic blood pressure 138 mm[Hg] Enrrique Srikanth [employer] DISPATCHER.VIAL GAUGER Work Phone: [facility] 11-11-2021 14:06-0400 Body weight 60.33 kg Dylan Cruz MD Work Phone: [facility] 11-11-2021 14:06-0400 Diastolic blood pressure 72 mm[Hg] Dylan Cruz MD Work Phone: [facility] 11-11-2021 14:06-0400 Heart rate 92 /min Dylan Cruz MD Work Phone: [facility] 11-11-2021 14:06-0400 Respiratory rate 16 /min Dylan Cruz MD Work Phone: [facility] 11-11-2021 14:06-0400 Systolic blood pressure 114 mm[Hg] Dylan Cruz MD Work Phone: [facility] 12-28-2016 14:18-0400 BMI (Body Mass Index) 29.23 kg/m2 Bibi Hernandez [facility] Work Phone: 12-28-2016 14:18-0400 BP Diastolic 64 mm[Hg] [facility] Work Phone: 12-28-2016 14:18-0400 BP Systolic 138 mm[Hg] [facility]in [facility] Work Phone: 12-28-2016 14:18-0400 Height 160.02 cm Bibijustin [facility] Work Phone: 12-28-2016 14:18-0400 Pulse (Heart Rate) 64 /min [facility] Work Phone: 12-28-2016 14:18-0400 Respiratory Rate 18 /min Bibi Hernandez [facility] Work Phone: 12-28-2016 14:18-0400 Weight 74.84 kg Bibi Hernandez [facility] Work Phone: 03-18-2016 15:12-0400 BSA (Body Surface Area) 1.81 m2 Bibi Hernandez [facility] Work Phone: 02-04-2016 11:40-0400 Heart rate 57 /min Antonio Dacosta MD [facility] Work Phone: 08-22-2013 15:22-0400 Body Temperature 98.7 [degF] Bibi Hernandez [facility] Work Phone: Encounters Encounter Date Encounter Type Care Provider Facility Start: 04-24-2023 Telephone encounter Dylan mancuso MD Work Phone: [facility] Procedures Date Procedure Procedure Detail Performing Clinician Start: 02-27-2023 INFLUENZA VACCINE, P RSV FREE, AGE 65+ YR, HIGH DOSE, QUADRIVALENT (FLUZONE HIGH-DOSE) Allyssa Pacheco APRN.VIAL GAUGER Work Phone: Start: 07-19-2020 Adult depression scr eening assessment Dylan Cruz MD Work Phone: Start: 12-28-2016 End: 12-28-2016 Dietary management education, guidance, and counseling Antonio Dacosta MD Start: 12-28-2016 End: 01-06-2017 *Hepatic Function Panel Antonio Dacosta MD Start: 12-28-2016 End: 12-28-2016 Follow Up Appt 6 months Antonio Dacosta MD Start: 12-28-2016 End: 01-06-2017 Lipid panel [AGGREGATE] Antonio Dacosta MD Start: 12-28-2016 End: 12-28-2016 MMM Antonio Dacosta MD Start: 04-14-2016 End: 01-06-2017 *Hepatic Function Panel Edda M Jalil westfall PA-C Work Phone: Start: 04-14-2016 End: 01-06-2017 Lipid panel [AGGREGATE] Edda Ling Jalil westfall PA-C Work Phone: Start: 03-18-2016 End: 03-18-2016 Follow Up Appt 6 months Edda Ling Jalil westfall PA-C Work Phone: Start: 03-18-2016 End: 03-18-2016 PFM Edda Hairston PA-C Work Phone: Start: 02-04-2016 End: 02-10-2016 *BMP Antonio Dacosta MD Start: 02-04-2016 End: 02-10-2016 *Hepatic Function Panel Antonio Dacosta MD Start: 02-04-2016 End: 02-10-2016 aPTT Antonio Dacosta MD Start: 02-04-2016 End: 02-10-2016 CBC W Auto Differential panel - Blood Antonio Dacosta MD Start: 02-04-2016 End: 03-03-2016 Chest x-ray Antonio Dacosta MD Start: 02-04-2016 End: 02-10-2016 Coagulation factor induced.INR assay in platelet poor plasma Antonio Dacosta MD Start: 02-04-2016 End: 02-10-2016 Echocardiography Antonio Dacosta MD Start: 02-04-2016 End: 02-04-2016 Electrocardiogram, complete Antonio lundy MD Start: 02-04-2016 End: 02-04-2016 Follow Up Appt 6 weeks Antonio Dacosta MD Start: 02-04-2016 End: 02-24-2016 Left Heart Cath Antonio Dacosta MD Start: 02-04-2016 End: 02-10-2016 Lipid panel [AGGREGATE] Antonio Dacosta MD Start: 02-04-2016 End: 02-04-2016 MMM Antonio Dacosta MD Start: 08-13-2013 Lap inc hernia repair L savage [facility]ler Work Phone: Plan of Treatment Date Care Activity Detail Author Start: 02-27-2026 Diabetes Screening Diabetes Screenin [facility] Start: 09-13-2025 DIABETES SCREEN DIABETES SCREEN [facility] Start: 09-13-2025 Diabetes Screening Diabetes Screenin g [facility] Start: 05-17-2025 DIABETES SCREEN DIABETES SCREEN [facility] Start: 10-15-2024 DIABETES SCREEN DIABETES SCREEN [facility] Start: 06-10-2024 DIABETES SCREEN DIABETES SCREEN [facility] Start: 02-27-2023 End: 04-29-2023 25-hydroxyvitamin D3 [Mass/volume] in Serum or Plasma [facility] Work Phone: Immunizations Immunization Date Immunization Notes Care Provider Ngozi patricio 02-27-2023 influenza (HD-IIV4) vaccine, age 65+ yr, high dose, quadrivalent, PF (FLUZONE HIGH-DOSE) Allyssa Pacheco APRN.VIAL GAUGER Work Phone: [facility] 01-01-2022 influenza, high-dose , quadrivalent vaccine (FLUZONE HIGH DOSE QUADRIVALENT) Enrrique Reaves APRN.VIAL GAUGER Work Phone: [facility] 01-01-2022 influenza virus vacc ine, unspecified formulation Mia Holden RN [facility] 12-29-2020 influenza (aIIV4) vaccine, age 65+ yr, quadrivalent, PF (FLUAD QUADRIVALENT) Dylan Cruz MD Work Phone: [facility] 08-06-2020 COVID-19 vaccine, fu ll dose (MODERNA) Dylan Cruz MD Work Phone: [facility] 07-09-2020 COVID-19 vaccine, fu ll dose (MODERNA) Dylan Cruz MD Work Phone: [facility] 01-21-2020 influenza, high dose seasonal, preservative-free Dylan Cruz MD Work Phone: [facility] 01-21-2020 pneumococcal polysaccharide vaccine, 23 valent Dylan Cruz MD Work Phone: [facility] 02-17-2019 Seasonal trivalent influenza vaccine, adjuvanted, preservative free Dylan Cruz MD Work Phone: [facility] 02-14-2018 pneumococcal polysaccharide vaccine, 23 valent Dylan Cruz MD Work Phone: [facility] Work Phone: 01-24-2018 Seasonal trivalent influenza vaccine, adjuvanted, preservative free Dylan Cruz MD Work Phone: [facility] Work Phone: 01-13-2018 influenza, seasonal, injectable, preservative free Dylan Cruz MD Work Phone: [facility] 12-30-2016 influenza, high dose seasonal, preservative-free Dylan Cruz MD Work Phone: [facility] Work Phone: 12-30-2016 pneumococcal conjuga te vaccine, 13 valent Dylan Cruz MD Work Phone: [facility] Work Phone: 02-18-2015 influenza, injectabl e, quadrivalent, contains preservative Dylan Cruz MD Work Phone: [facility] Work Phone: 11-19-2014 pneumococcal conjuga te vaccine, 13 valent Dylan Cruz MD Work Phone: [facility] Work Phone: 02-12-2014 zoster vaccine, live Dylan viveros MD Work Phone: [facility] Work Phone: 03-18-2013 influenza, seasonal, injectable Dylan Cruz MD Work Phone: [facility] Work Phone: 04-26-2012 influenza virus vacc ine, unspecified formulation Dylan Cruz MD Work Phone: [facility] 03-17-2011 influenza virus vacc ine, unspecified formulation Dylan Cruz MD Work Phone: [facility] 01-04-2011 pneumococcal polysaccharide vaccine, 23 valent Dylan Cruz MD Work Phone: [facility] Work Phone: 04-06-2010 influenza virus vacc ine, unspecified formulation Dylan Cruz MD Work Phone: [facility] Work Phone: 02-23-2009 influenza virus vacc ine, unspecified formulation Dylan Cruz MD Work Phone: [facility] 03-30-2006 influenza virus vacc ine, unspecified formulation Dylan Cruz MD Work Phone: [facility] Work Phone: 01-24-2003 tetanus and diphther ia toxoids, adsorbed, preservative free, for adult use (2 Lf of tetanus toxoid and 2 Lf of diphtheria toxoid) Dylan Cruz MD Work Phone: [facility] Work Phone: Payers Date Payer Category Payer Medicare AETNA MEDICARE A ETNA MEDICARE PPO [id number] 2021-Present [phone] [address] [place] [address] PPO [id number] 2021 Medicare AETNA MEDICARE A ETNA MEDICARE PPO [id number] 2021-Present [phone] [address] [place] [address] PPO [id number] 2021 Medicare [id number] 1940 Unknown [id number] Medicare [id number] Social History Date Type Detail Facility Start: 10-25-2018 End: 05-17-2022 Tobacco smoking status NHIS Never smoked tobacco [facility] Work Phone: Start: 08-03-2021 End: 03-01-2023 Alcohol intake Current non-drinker of alcohol (finding) [facility] Start: 07-19-2020 History SDOH Alcohol Std Drinks 98 [facility] Start: 07-19-2020 End: 05-16-2022 History SDOH Alcohol Binge 1 [facility] Start: 07-19-2020 End: 05-16-2022 History SDOH Social Connections Phone 5 [facility] Start: 07-19-2020 End: 05-16-2022 History SDOH Social Connections Lutheran 3 [facility] Start: 07-19-2020 End: 05-16-2022 History SDOH Social Connections Meetings 2 [facility] Start: 07-19-2020 End: 05-16-2022 History SDOH Social Connections Living 4 [facility] Start: 07-19-2020 History SDOH Physical Activity MPS 6 [facility] Start: 07-19-2020 Education 18 [facility] Start: 10-25-2018 End: 05-17-2022 Tobacco Comment No smoking in childhood home. Spouse of 40 years ex-smoker, 16 years ago. [facility] Start: 1940 Sex Assigned At Female [facility] Start: 11-01-2021 End: 12-13-2021 Exposure to SARS-CoV-2 (event) Not sure [facility] Start: 10-25-2018 End: 05-17-2022 Tobacco use and exposure Smokeless tobacco non-user [facility] Work Phone: Start: 05-16-2022 History SDOH Alcohol Std Drinks 0 [facility] Start: 05-16-2022 End: 10-17-2022 History of Social function [facility] Start: 05-16-2022 End: 10-17-2022 Social connection and isolation panel [facility] Active Member of [facility] bs or Organizations Not on file [facility] Are you now , , , , never or living with a partner? [facility] How often to you hav e a drink containing alcohol? Never [facility] Do you feel stress - tense, restless, nervous, or anxious, or unable to sleep at night because your mind is troubled all the time - these days [OSQ] To some extent [facility] (I/We) worried wheth er (my/our) food would run out before (I/we) got money to buy more. Never true [facility] In the past 12 month s, was there a time when you were not able to pay the mortgage or rent on time? No [facility] Start: 08-18-2018 Gender identity Identifies as female gender (finding) [facility] Start: 08-18-2018 Sexual orientation Heterosexual (finding) [facility] Clinical Notes 01-25-2010 to 04-24-2023 Telephone Encounter - Kamila Mohr RN - 04/24/2023 3:07 PM ESTTelephone Encounter - Dylan Cruz MD - 04/24/2023 2:05 PM EST Note Date & Type Note Facility 04-24-2023 Miscellaneous Notes Formattin g of this note might be different from the original. Faxed consult to [facility] per request. Message left for sister Kit to notify referral was approved and sent to [facility] as requested. Kamila Mohr RN OK for hospice consult Dylan Cruz MD Sister (Kit) calls to request a referral to hospice services. Patient received a weekend pass to go home from [facility] and Kit reports that patient doesn't want to go back to [facility] and they are trying to find a way to keep her at home where she is happier. Justinearvinddeanna reports that patient is experiencing delirium and really needs help. Recommended ER if patient is delirious. Romdeanna reports that it has been on-going but getting worse and she believes it is because of all the recent moves to the different [facility] and [facility] and the various medications patient is on that she wasn't previously. Patient currently has a niece with her and someone that stayed over night. Strongly encouraged patient not to be left alone in her current state. Kit reports they aren't leaving her alone. Recommended ER eval for quickest evaluation. Kit reports that they aren't going back to the ER and that patient is on-board with hospice services. Kit to also contact [facility]. Phone number provided. Kamila Mohr RN documented in this encounter [facility] 04-20-2023 Miscellaneous Notes Formattin g of this note might be different from the original. Faxed order sheet to [facility] with information below. Jody Oconnell Ma She should be on Abilify 5 mg daily rather than the Zyprexa; Rx sent Rx for Ativan to use twice daily as needed ordered Dylan Cruz MD I have also scanned in most recent discharge summary regarding patient. Please review scanned documents. Ativan is not listed, but is listed below in Care Everywhere documentation. Jody Oconnell Ma See messages below regarding patient and Rx's. Recent note from 04/16 on Care Everywhere: IMPRESSION: AXIS I: 1. 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 AXIS III: 1. Hypertension. 2. Hypothyroidism. TREATMENT PLAN: 1. Abilify 5 mg daily. 2. Trazodone 25 mg at bedtime. 3. We will discontinue Zyprexa 2.5 mg before bedtime. 4. Continue lorazepam 0.5 mg b.i.d. p.r.n. 5. Supportive therapy. 6. Group and activity therapy. 7. Once patient is stable, will be discharged back to [facility] or [facility] Loss Unit. Jody Oconnell Ma Rx for Zyprexa and Senna sent. Please obtain discharge records and fax to PCP for review. Phone call to [facility], hoop punch and coiler operator transferred me to [facility], who she wasn't sure if available. Asked hoop punch and coiler operator to speak with a nurse who cares for patient, I was transferred to [facility] and no answer. Phone call back, spoke with Jefe and informed of the below. Zyprexa dose 2.5 mg daily PRN for aggressive behavior. Katarina Whittaker MA I have not seen this patient in the past and it looks like they have not been on Lorazepam in more than a decade. I have no documentation here from her discharge. I see she was in the ER on 03/30 and yesterday for combative behavior. First time she was discharged to geriatric psych unit for 14 days. Yesterday discharged back to [facility]. PDMP report does not show recent refills of Lorazepam. I am not able to send in a refill of this medication at this time. They could reach out to [facility] about rx to her pharmacy since they discharged her and should have given at least short course until she could come in to see PCP. What is the dose of her Zyprexa and how often is she supposed to take this? It was not listed at [facility] ER yesterday. Christine VELASQUEZ of [facility] called in and reports she faxed information over on the Pt including a medication list. She reports that Pt just came back to them from [facility], and they didn't give her any prescriptions for her new medications. He reports Pt was started on Lorazepam, Zyprexa 2.5 mg, and Senna oral +. She states the Pt sundowns and becomes really aggressive. Tonight her nurse will be Jefe and they use [facility]. I added the pharmacy to Pts list. She is asking if they could get all three medications, but knows that with this not being Pts PCP he may not fill a controlled medication. documented in this encounter [facility] 03-28-2023 Miscellaneous Notes Formattin g of this note is different from the original. This phone note printed and faxed back to [facility] with the fax they sent office. The following approved medication requests have been transmitted electronically. Requested Prescriptions Signed Prescriptions Disp Refills traZODone (DESYREL) 50 mg tablet 30 tablet 0 Sig: Take 1 tablet by mouth daily at bedtime. Authorizing Provider: DYLAN CRUZ OK for trazodone at bedtime as ordered Dylan Cruz MD Office received fax from [facility] stating below: Resident is complaining sleeplessness. It also has been reported by night nurse that Resident hasn't slept the last 2 nights. Can we have an order for something to help her sleep. Per Resident request. (See fax on PCP's desk) documented in this encounter [facility] documented as of this encounter (statuses as of 03/29/2023) [facility]10-26-2023 Miscellaneous Notes* Telephone Encounter - Gianni Naomijackie Gordon LPN - 03/09/2023 4:51 PM EDT Pt called in and was a little confused when I was talking to her. Pt to have some apts scheduled and she wants her daughter, Kenia to be contacted to schedule. Shrink Pit Operator Keri spoke with pt earlier and will be calling pt's daughter back when she has all the information needed to schedule apts. Naomi Archer LPN documented in [facility] encounter[facility] Miscellaneous Notes* Telephone Encounter - Susanna Matute LPN - 03/06/2023 10:55 AM EDT Patient returned call and wanted to have results again, went over results, notes from Allyssa Pacheco REGISTERED RADIOGRAPHER and gave reminder of date of Neurology appt. * Telephone Encounter - Rosalia Cox LPN - 03/06/2023 9:17 AM EDT Patient notified of results, verbalizes understanding of instructions. Rosalia Cox LPN * Telephone Encounter - Allyssa Pacheco APRN.CNP - 03/06/2023 7:09 AM EDT Can you please call the patient and sister and let them know that her labs were all relatively normal. I would recommend that they keep follow-up appointments with neurology for further evaluation. Please let me know if they have any questions. Thank you. Allyssa Pacheco APRN.JAVI documented in this encounterOhio[facility] History of Past illness Narrative* Problem Noted Date Diagnosed Date Resolved Date Chronic kidney disease, stage 3a 09/13/2022 01/05/2023 Otitis media 07/02/2010 11/11/2021 Anemia, unspecified 01/25/2010 07/02/19 11 Chest pain, unspecified 12/16/200810/15 Acute upper respiratory infe ctions of unspecified site 02/10/2007 02/23/2009 Other conjunctivitis 02/10/2007 009 Esophagitis 11/13/2008 Hernia of other specified [place] of abdominal cavity without mention of obstruction or gangrene 11/11/2021 Essential hypertension, benign 11/13/2008 Abdominal pain, right lower quadrant 11/11/2021 documented as of this encounter (statuses as of 03/06/2023) [facility] Miscellaneous Notes* Telephone Encounter - Lyndsey Archer LPN - 03/02/2023 12:14 PM EDT Phone call returned to patient's sister listed on chart (Kit) no answer, unable to leave a message phone rang, rang. Lyndsey Archer LPN * Telephone Encounter - Sho Lechuga LPN - 03/02/2023 11:32 AM EDT Pt was seen by Eduard yesterday. Pt's sister Jasen who is her POA states she didn't know pt had an appt yesterday so wasn't with her. Romdeanna asking if someone from neuro can call her & lether know what is going with pt. She thinks pt should not be driving. Thank you, Sho Lehcuga LPN documented in this encounterOhio[facility]10-19-[facility]23 History of Past illness Narrative* Problem Noted Date Diagnosed Date Resolved Date Chronic kidney disease, stage 3a 09/13/2022 01/05/2023 Otitis media 07/02/2010 11/11/2021 Anemia, unspecified 01/25/2010 07/02/19 11 Chest pain, unspecified 12/16/200810/15 Acute upper respiratory infe ctions of unspecified site 02/10/2007 02/23/2009 Other conjunctivitis 02/10/2007 009 Esophagitis 11/13/2008 Hernia of other specified si [place] of abdominal cavity without mention of obstruction or gangrene 11/11/2021 Essential hypertension, benign 11/13/2008 Abdominal pain, right lower quadrant 11/11/2021 documented as of this encounter (statuses as of 03/02/2023) [facility]10-18-2023 NoteHNO ID: [id number] Author: Shivani Fritz LPN Service: ? Author Type: LICENSED NURSE Type: Progress Notes Filed: 03/01/2023 1:04 PM Note Text: There is no data to display for [facility]23 NoteHNO ID: [id number] Author: Rosaura Kimball PA-C Service: ? Author Type: Physician Shake Out Worker Type: Progress Notes Filed: 03/01/2023 1:04 PM Note Text: ESTABLISHED PATIENT VISIT Last visit: 12/02/[address] Macias ASSESSMENT/PLAN: 1. Abnormality of gait - ICD9: 781.2, ICD10: R26.9 (primary diagnosis) 2. Degeneration of lumbar intervertebral disc - ICD9: 722.52, ICD10: M51.36 Patient with diagnosis of Parkinson's disease as a result of an abnormal gait for which patient presents for second opinion. She was evaluated off Parkinson's type medications. Patient at this time is not endorsing symptoms suggestive of Parkinson's disease in history nor are there findings on exam to suggest Parkinson's disease except for stooped posture. At this time I suspect her abnormal gait is secondary to known spine disease. I would not restart PD meds at this time. I did advise patient that although no evidence of PD at this time, still possible that she could develop such symptoms and due to day to day variability of such symptoms I would like her to follow up with us some time in the next 6 months for further evaluation. If exam remains unremarkable at that time, pt can follow up prn. She will continue to follow with spine regarding lumbar dz. 3. Hypertension, unspecified type - ICD9: 401.9, ICD10: I10 4. Nausea - ICD9: 787.02, ICD10: R11.0 Patient becomes focused on elevated BPs and nausea during evaluation. Appear has had GI workup. Not endorsing any other neuro symptoms. Encouraged patient to follow up with PCP regarding these complaints - PCP already following. Patient and family agree with plan. Jeovanny Macias MD CHIEF COMPLAINT: follow up, memory loss HISTORY OF PRESENT ILLNESS: Yuliya Hernandez is a 82 year old female, There were no vitals taken for this visit. with a PMH significant for fibromyalgia, DDD of the lumbar spine, HTN, orthostatic HOTN, takotsubo cardiomyopathy, NSTEMI, hayder's syndrome, hypothyroidism, anemia, anxiety, vertigo. Seen originally by Dr. Macias for second opinion regarding parkinsons on 12/02/22. No mention of memory concerns at this time but messaged on 02/15/23 about new memory concerns that were no previously adressed. Previously told she has parkinsons due to gait but also has lumbar stenosis so will continue to monitor. No parkinsons medications were started. MRI of the brain in 2019 did not show any significant volume loss for age. Recent B12 was normal at 435 and TSH WNL. Per patient: Patient presents alone for follow-up. Sister called in on 02-15-2023 for concerns of patient's memory loss. Today patient is without her sister and states she has no concern over her memory. States that she has no worsening memory loss than anyone her age. She is currently driving, no recent accidents or getting lost. Lives alone, no falls, no leaving the stove on, able to take care of herself including making food and bathing. Denies any lightheadedness, no syncope. Using a walker and cane. Is scheduled to have physical therapy later this week for her degenerative lumbar spine which is managed by Dr. Martinez. Notes that she recently saw her eye doctor who told her not to drive because of her walking, notes that her eye exam was normal. Reports anosmia, but states that this has been chronic for many years after she got the flu many years ago. Denies any tremor, no REM sleep disturbance. Does note some micrographia that is on and off. Occasionally will feel after somebody in the house, but attributes this to having multiple pets and being in a large house. No hallucinations. No family history of any dementia or Parkinson's. Patient does have a quiet voice, states that this has been a chronic issue ever since she had tinnitus. States that she feels like she is shouting when her voice is quiet so she lowers it. No incontinence. REVIEW OF SYSTEMS GENERAL:No weight loss, malaise or fevers. HEENT:Negative for frequent or significant headaches, No changes in hearing or vision, no nose bleeds or other nasal problems NECK:Negative for lumps, goiter, pain and significant neck swelling RESPIRATORY: Negative for cough, wheezing or shortness of breath. CARDIOVASCULAR: Negative for chest pain, leg swelling or palpitations. GASTROINTESTINAL: Negative for abdominal discomfort, blood in stools or black stools or change in bowel habits GENITOURINARY: No history of dysuria, frequency or incontinence MUSCULOSKELETAL: Negative for joint pain or swelling, back pain or muscle pain. NEUROLOGIC:Negative for focal numbness or weakness, headaches and dizziness or syncope, vision changes, speech/languag changes - EXCEPT that as per HPI above. SKIN:Negative for lesions, rash, and itching. PSYCHIATRIC: Negative for sleep disturbance, mood disorder and recent psychosocial stressors. HEMATOLOGIC/LYMPHATIC/IMMUNOLOGIC:Negative for prolonged bleeding, bruising easily or swo (more content not included)...[facility] 03-01-2023 Instructions* Patient Instructions* Rosaura Kimball PA-C - 03/01/2023 12:47 PM EDT MRI of the brain Occupational therapy for driving Follow up in June 06 documented in this encounterOhio[facility] History of Present illness Narrative* Shivani Fritz LPN - 03/01/2023 12:03 PM EDT There is no data to display for this encounter * Rosaura Kimball PA-C - 03/01/2023 12:00 PM EDT ESTABLISHED PATIENT VISIT Last visit: 12/02/[address] Macias ASSESSMENT/PLAN: 1. Abnormality of gait - ICD9: 781.2, ICD10: R26.9 (primary diagnosis) 2. Degeneration of lumbar intervertebral disc - ICD9: 722.52, ICD10: M51.36 Patient with diagnosis of Parkinson's disease as a result of an abnormal gait for which patient presents for second opinion. She was evaluated off Parkinson's type medications. Patient at this time is not endorsing symptoms suggestive of Parkinson's disease in history nor are there findings on examto suggest Parkinson's disease except for stooped posture. At this time I suspect her abnormal gaitis secondary to known spine disease. I would not restart PD meds at this time. I did advise patientthat although no evidence of PD at this time, still possible that she could develop such symptoms and due to day to day variability of such symptoms I would like her to follow up with us some time in the next 6 months for further evaluation. If exam remains unremarkable at that time, pt can follow up prn. She will continue to follow with spine regarding lumbar dz. 3. Hypertension, unspecified type - ICD9: 401.9, ICD10: I10 4. Nausea - ICD9: 787.02, ICD10: R11.0 Patient becomes focused on elevated BPs and nausea during evaluation. Appear has had GI workup. Notendorsing any other neuro symptoms. Encouraged patient to follow up with PCP regarding these complaints - PCP already following. Patient and family agree with plan. Jeovanny Macias MD CHIEF COMPLAINT: follow up, memory loss HISTORY OF PRESENT ILLNESS: Yuliya Hernandez is a 82 year old female, There were no vitals taken for this visit. with a PMH significant for fibromyalgia, DDD of the lumbar spine, HTN, orthostatic HOTN, takotsubo cardiomyopathy, NSTEMI, hayder's syndrome, hypothyroidism, anemia, anxiety, vertigo. Seen originally by Dr. Macias for second opinion regarding parkinsons on 12/02/22. No mention of memory concerns at this time but messaged on 02/15/23 about new memory concerns that were no previously adressed. Previously told she has parkinsons due to gait but also has lumbar stenosis so will continue to monitor. No parkinsons medications were started. MRI of the brain in 2019 did not show any significant volume loss for age. Recent B12 was normal at 435 and TSH WNL. Per patient: Patient presents alone for follow-up. Sister called in on 02-15-2023 for concerns of patient's memory loss. Today patient is without her sister and states she has no concern over her memory. States that she has no worsening memory loss than anyone her age. She is currently driving, no recent accidents or getting lost. Lives alone, no falls, no leaving the stove on, able to take care of herself including making food and bathing. Denies any lightheadedness, no syncope. Using a walker and cane. Is scheduled to have physical therapy later this week for her degenerative lumbar spine which is managed by Dr. Martinez. Notes that she recently saw her eye doctor who told her not to drive because of her walking, notes that her eye exam was normal. Reports anosmia, but states that this has been chronic for many years after she got the flu many years ago. Denies any tremor, no REM sleep disturbance. Does note some micrographia that is on and off. Occasionally will feel after somebody in the house, but attributes this to having multiple pets and being in a large house. No hallucinations. No family history of any dementia or Parkinson's. Patient does have a quiet voice, states that this has been a chronic issue ever since she had tinnitus. States that she feels like she is shouting when her voice is quiet so she lowers it. No incontinence. REVIEW OF SYSTEMS GENERAL:No weight loss, malaise or fevers. HEENT:Negative for frequent or significant headaches, No changes in hearing or vision, no nose bleeds or other nasal problems NECK:Negative for lumps, goiter, pain and significant neck swelling RESPIRATORY: Negative for cough, wheezing or shortness of breath. CARDIOVASCULAR: Negative for chest pain, leg swelling or palpitations. GASTROINTESTINAL: Negative for abdominal discomfort, blood in stools or black stools or change in bowel habits GENITOURINARY: No history of dysuria, frequency or incontinence MUSCULOSKELETAL: Negative for joint pain or swelling, back pain or muscle pain. NEUROLOGIC:Negative for focal numbness or weakness, headaches and dizziness or syncope, vision changes, speech/languag changes - EXCEPT that as per HPI above. SKIN:Negative for lesions, rash, and itching. PSYCHIATRIC: Negative for sleep disturbance, mood disorder and recent psychosocial stressors. HEMATOLOGIC/LYMPHATIC/IMMUNOLOGIC:Negative for prolonged bleeding, bruising easily or swollen nodes. ENDOCRINE: Negative for cold or heat intolerance, polyuria, polydipsia and goiter. The remainder of the ROS was reviewed and is negative. LAB/IMAGING: Those performed since patient's last visit have been reviewed. Labs noted above MEDICATIONS: levothyroxine (SYNTHROID) 50 mcg tablet take 1 tablet by mouth once daily ON AN EMPTY STOMACH for THYROID Walker misc Use as needed amLODIPine (NORVASC) 2.5 mg tablet Take 2.5 mg by mouth once daily. lisinopril (ZESTRIL) 10 mg tablet Take 10 mg by mouth once daily. Cholecalciferol, Vitamin D3, 50 mcg (2,000 unit) cap Take 1 capsule by mouth once daily. CYANOCOBALAMIN, VITAMIN B-12, INJECTION by INJECTION(UNSPECIFIED PARENTERAL ROUTES) route one time a week. Dr. Ny-[facility] Neuro (Patient not taking: Reported on 02/27/2023) HISTORIES PAST MEDICAL HISTORY Diagnosis Date Abdominal pain, right lower quadrant stress related Abnormal stress test Back fracture 2006 caused by accident, lumbar facet CAD (coronary artery disease) Chest pain Chest pain, unspecified 10/29/2001 admitted [facility] CP: Mi ruled out; Persantine stress echo WNL. Dx: esophagitis CHF (congestive heart failure) (HCC) Chronic systolic (congestive) heart failure (HCC) DDD (degenerative disc disease) Diaphragmatic hernia without mention of obstruction or gangrene 12/2001 Hiatal hernia per EGD Dyspnea Esophagitis 12/2001 per EGD Essential hypertension, benign Fatigue Fibromyalgia Hyperlipidemia diet controlled Hyperlipidemia NSTEMI (non-ST elevated myocardial infarction) ([facility]) Osteopenia 10/2004 Other anxiety states Other specified anemias 12/2001 PAC (premature atrial contraction) Paroxysmal atrial tachycardia PMH - PAST MEDICAL HISTORY OF post trama in left knee Sinus bradycardia SVT (supraventricular tachycardia) Tachycardia Takotsubo cardiomyopathy Unspecified hemorrhoids without mention of complication 12/2001 Hemorrhoids, scattered diverticula per colonoscopy FAMILY HISTORY Problem Relation Age of Onset Osteoporosis Mother Diabetes Father Pancreatic Cancer Father Diabetes Son SOCIAL HISTORY Social History Tobacco Use Smoking status: Never Smokeless tobacco: Never Tobacco comments: No smoking in childhood home. Spouse of 40 years ex-smoker, 16 years ago. Vaping Use Vaping Use: Never used Substance Use Topics Alcohol use: No Drug use: No PHYSICAL EXAMINATION BP 127/68 Pulse 68 Resp 18 Wt 55.8 kg (123 lb) SpO2 98% BMI 22.50 kg/m MoCA: Visuospatial: 0/5 Namin/3 Attention: 08/18 Language: 23 Abstraction: 2/2 Delayed recall: 05 Orientation: 6/6 Masters degree GENERAL EXAM: General appearance: NAD, pleasant. HEENT: NC/AT, nasal congestion absent, no oral lesions, membranes moist. NECK: No masses, supple. Lungs: Breathing comfortably Extr: Moves all extremities without difficulty Skin: Cool to touch. No rash. NEUROLOGICAL EXAM: General: Awake, alert, oriented x3 (person,place,time), speech fluent, no dysarthria; comprehension, naming, repetition intact. See MoCA above. CN: PERRL, EOMI and without nystagmus, VFF to confrontation, facial sensation and strength are normal and symmetric, hearing is intact to conversation, Quiet voice. SCM and trapezius strength normal. Motor: Normal tone, bulk and strength (5/5) bilaterally (throughout extremities x4). Reflexes: 2/4 and symmetric, plantar stimulation is flexor. Coordination: FNF intact. No tremors. VAN intact. Sensation: LNo evidence of neglect. Gait: Shuffled gait with decreased arm swing. Walking with walker. Assessment and Plan: ASSESSMENT/PLAN: 1. Memory loss - ICD9: 780.93, ICD10: R41.3 (primary diagnosis) 2. Abnormality of gait - ICD9: 781.2, ICD10: R26.9 3. Degeneration of lumbar intervertebral disc - ICD9: 722.52, ICD10: M51.36 Patient presents for memory loss. Patient's sister called in on 02-15-2023 concern for patient's memory and that was not addressed at her previous appointment. Previous appointment was for second opinion of Parkinson's and did not mention any memory loss. Today patient presents alone and has no concerns over her memory. States that she has normal memory loss and anyone else her age. MoCA was concerning for neurodegenerative process like dementia but patient stated that she was fatigued andhaving an off day throughout the entire testing process. Did discuss this is concerning for dementia, patient is currently driving. Discussed that I do not feel it is safe for her to drive due to hertesting today but will have formal occupational therapy evaluation for future driving. Patient agrees and understands, however this needed to be stated multiple times in order for patient to remember. Discussed neuropsychological testing, deferred at this time. We will obtain MRI of the brain with volumetric analysis to evaluate for significant atrophy and contribute to patient's symptoms. Discussed medications that may be beneficial for dementia and patient deferring any medications at this time. Patient's heart rate is in the low 60s, will obtain EKG at next appointment should she want to start any medications including Aricept. Regarding Parkinson's, patient does have shuffling gait and quiet voice, but no other significant findings on exam correlating to Parkinson's. We will continue to monitor. Patient denying any lightheadedness, hallucinations, tremor. Shuffling gait likely secondary to significant lumbar degeneration. Has scheduled physical therapy for this, encouraged her to undergo this treatment. Patient agreeable to treatment plan of care at this time, all questions were answered. Patient to follow-up as scheduled in 3 months or sooner should any symptoms change or worsen. Rosaura Kimball PA-C I spent a total of 55 minutes on the date of the service which included preparing to see the patient, [id number] patient care, completing clinical documentation, obtaining and/or reviewing separately obtained history, performing a medically appropriate examination, counseling and educating the pat ient/family/caregiver, and ordering medications, tests, or procedures. This document has been created with the use of voice recognition technology. It may contain inaccuracies: (e.g. misspellings, inaccurate syntax or word sense) that have escaped review. documented in this encounter[facility] History of Past illness Narrative* Problem Noted Date Diagnosed Date Resolved Date Chronic kidney disease, stage 3a 09/13/2022 01/05/2023 Otitis media 07/02/2010 11/11/2021 Anemia, unspecified 01/25/2010 07/02/19 11 Chest pain, unspecified 12/16/200810/15 Acute upper respiratory infe ctions of unspecified site 02/10/2007 02/23/2009 Other conjunctivitis 02/10/2007 009 Esophagitis 11/13/2008 Hernia of other specified [place] of abdominal cavity without mention of obstruction or gangrene 11/11/2021 Essential hypertension, benign 11/13/2008 Abdominal pain, right lower quadrant 11/11/2021 documented as of this encounter (statuses as of 03/01/2023) [facility]23 NoteHNO ID: [id number] Author: Allyssa Pacheco APRN.VIAL GAUGER Service: ? Author Type: Nurse Practitioner Type: Progress Notes Filed: 02/27/2023 12:03 PM Note Text: This is a 82 year old female who presents today with: Patient presents with: Follow Up HISTORY OF PRESENT ILLNESS: Yuliya Hernandez is a 82 year old female. Patient presents with: Follow Up Follow up on walking/ambulation. Using walker to help with ambulation, to prevent falls. Refers that she feels like she can't get her legs working. Has difficulty getting to standing position. Following with neurology, has upcoming appointment on Monday. 9 cats living in the shop/barn. Living alone. Friend is present during appt. PAST MEDICAL HISTORY: PAST MEDICAL HISTORY Diagnosis Date Abdominal pain, right lower quadrant stress related Abnormal stress test Back fracture 2006 caused by accident, lumbar facet CAD (coronary artery disease) Chest pain Chest pain, unspecified 10/29/2001 admitted [facility] CP: Mi ruled out; Persantine stress echo WNL. Dx: esophagitis CHF (congestive heart failure) (HCC) Chronic systolic (congestive) heart failure (HCC) DDD (degenerative disc disease) Diaphragmatic hernia without mention of obstruction or gangrene 12/2001 Hiatal hernia per EGD Dyspnea Esophagitis 12/2001 per EGD Essential hypertension, benign Fatigue Fibromyalgia Hyperlipidemia diet controlled Hyperlipidemia NSTEMI (non-ST elevated myocardial infarction) ([facility]) Osteopenia 10/2004 Other anxiety states Other specified anemias 12/2001 PAC (premature atrial contraction) Paroxysmal atrial tachycardia ([facility]) PMH - PAST MEDICAL HISTORY OF post trama in left knee Sinus bradycardia SVT (supraventricular tachycardia) ([facility]) Tachycardia Takotsubo cardiomyopathy Unspecified hemorrhoids without mention of complication 12/2001 Hemorrhoids, scattered diverticula per colonoscopy PAST SURGICAL HISTORY Procedure Laterality Date APPENDECTOMY ARTHRP KNE CONDYLEANDPLATU MEDIALANDLAT COMPARTMENTS Left 2006 Knee replacement, total (left knee) CARDIAC CATH 09/15/2017 possible severe proximal LAD stenosis; FFR showed no flow limitation to indicate a significant stenosis CARDIOLITE STRESS TEST 02/27/2018 modified Fer protocol, 90% MPHR, 3 METs; no ischemia or scar; LVEF 65% DELIVERY ONLY 1974 , low transverse COLONOSCOPY FLX DX W/COLLJ SPEC WHEN PFRMD 12/26/012008 Colonoscopy: scattered diverticula, internal hemorrhoids CYSTOSCOPY,URETEROSCOPY,LITHOTRIPSY ECHOCARDIOGRAM 02/09/2018 normal LV systolic fxn LVEF 60% with apical hypokinesis; moderate LAE; 1-2+ MR; 2+ TR; 1+ AI and PI EGD 12/17/01 ESOPHAGOGASTRODUODENOSCOPY TRANSORAL DIAGNOSTIC 01/25/2010 EGD HOLTER MONITOR 24 HOUR 12/18/2017 sinus rhythm; min HR 40 bpm; max HR 117 bpm; avg HR 70 bpm; frequent PACs, atrial couplets, atrial bigeminy, and runs of paroxysmal atrial tachycardia (longest run 658 beats at 119 bpm, fastest run 121 bpm). no symptoms reported HYSTERECTOMY HX 1990s ovaries intact, menorrhagia LAPAROSCOPY SURG CHOLECYSTECTOMY ALLERGIES Celebrex [Celecoxib], Oxycontin [Oxycodone Hcl], and Codeine MEDICATIONS Current Outpatient Medications Medication Sig amLODIPine (NORVASC) 2.5 mg tablet Take 2.5 mg by mouth once daily. Cholecalciferol, Vitamin D3, 50 mcg (2,000 unit) cap Take 1 capsule by mouth once daily. CYANOCOBALAMIN, VITAMIN B-12, INJECTION by INJECTION(UNSPECIFIED PARENTERAL ROUTES) route one time a week. Dr. Ny-[facility] Neuro levothyroxine (SYNTHROID) 50 mcg tablet take 1 tablet by mouth once daily ON AN EMPTY STOMACH for THYROID lisinopril (ZESTRIL) 10 mg tablet Take 10 mg by mouth once daily. Walker misc Use as needed No current facility-administered medications for this visit. FAMILY HISTORY Problem Relation Age of Onset Osteoporosis Mother Diabetes Father Pancreatic Cancer Father Diabetes Son Social History Tobacco Use Smoking status: Never Smokeless tobacco: Never Tobacco comments: No smoking in childhood home. Spouse of 40 years ex-smoker, 16 years ago. Vaping Use Vaping Use: Never used Substance Use Topics Alcohol use: No Drug use: No REVIEW OF SYSTEMS GENERAL: No weight loss, malaise or fevers/chills HEENT: Negative for frequent or significant headaches, No changes in hearing or vision. NECK: Negative for lumps, goiter, pain and significant neck swelling RESPIRATORY: Negative for cough, hemoptysis, wheezing, dyspnea or shortness of breath CARDIOVASCULAR: Negative for chest pain, leg swelling, orthopnea, or palpitations GI: No nausea, vomiting, or diarrhea/constipation. No hematochezia/melena. No heartburn or reflux symptoms. : No history of dysuria, frequency or incontinence MUSCULOSKELETAL: Negative for joint pain or swelling. SKIN: Negative for lesions, rash, and itching ENDOCRINE: Negative for cold or heat intolerance (more content not included)... [facility]10-16-2023 Instructions* Patient Instructions* Allyssa Pacheco APRN.CNP - 02/27/2023 10:41 AM EDT Get labs completed Keep up coming appointment with Neurology Continue to use walker Complete physical therapy Follow up pending test results. Flu vaccine given documented in this encounterOhio[facility]10-16-2023 History of Present illness Narrative* Allyssa Pacheco APRN.CNP - 02/27/2023 10:40 AM EDT This is a 82 year old female who presents today with: Patient presents with: Follow Up HISTORY OF PRESENT ILLNESS: Yuliya Hernandez is a 82 year old female. Patient presents with: Follow Up Follow up on walking/ambulation. Using walker to help with ambulation, to prevent falls. Refers that she feels like she can't get her legs working. Has difficulty getting to standing position. Following with neurology, has upcoming appointment on Monday. 9 cats living in the shop/barn. Living alone. Friend is present during appt. PAST MEDICAL HISTORY: PAST MEDICAL HISTORY Diagnosis Date Abdominal pain, right lower quadrant stress related Abnormal stress test Back fracture 2006 caused by accident, lumbar facet CAD (coronary artery disease) Chest pain Chest pain, unspecified 10/29/2001 admitted [facility] CP: Mi ruled out; Persantine stress echo WNL. Dx: esophagitis CHF (congestive heart failure) (HCC) Chronic systolic (congestive) heart failure (HCC) DDD (degenerative disc disease) Diaphragmatic hernia without mention of obstruction or gangrene 12/2001 Hiatal hernia per EGD Dyspnea Esophagitis 12/2001 per EGD Essential hypertension, benign Fatigue Fibromyalgia Hyperlipidemia diet controlled Hyperlipidemia NSTEMI (non-ST elevated myocardial infarction) ([facility]) Osteopenia 10/2004 Other anxiety states Other specified anemias 12/2001 PAC (premature atrial contraction) Paroxysmal atrial tachycardia (HCC) PMH - PAST MEDICAL HISTORY OF post trama in left knee Sinus bradycardia SVT (supraventricular tachycardia) (HCC) Tachycardia Takotsubo cardiomyopathy Unspecified hemorrhoids without mention of complication 12/2001 Hemorrhoids, scattered diverticula per colonoscopy PAST SURGICAL HISTORY Procedure Laterality Date APPENDECTOMY ARTHRP KNE CONDYLE&PLATU MEDIAL&LAT COMPARTMENTS Left 2007 Knee replacement, total (left knee) CARDIAC CATH 09/15/2017 possible severe proximal LAD stenosis; FFR showed no flow limitation to indicate a significant stenosis CARDIOLITE STRESS TEST 02/27/2018 modified Fer protocol, 90% MPHR, 3 METs; no ischemia or scar; LVEF 65% DELIVERY ONLY 1974 , low transverse COLONOSCOPY FLX DX W/COLLJ SPEC WHEN PFRMD 12/26/01, 2008 Colonoscopy: scattered diverticula, internal hemorrhoids CYSTOSCOPY,URETEROSCOPY,LITHOTRIPSY ECHOCARDIOGRAM 02/09/2018 normal LV systolic fxn LVEF 60% with apical hypokinesis; moderate LAE; 1-2+ MR; 2+ TR; 1+ AI and PI EGD 12/17/01 ESOPHAGOGASTRODUODENOSCOPY TRANSORAL DIAGNOSTIC 01/25/2010 EGD HOLTER MONITOR 24 HOUR 12/18/2017 sinus rhythm; min HR 40 bpm; max HR 117 bpm; avg HR 70 bpm; frequent PACs, atrial couplets, atrial bigeminy, and runs of paroxysmal atrial tachycardia (longest run 658 beats at 119 bpm, fastest run 121 bpm). no symptoms reported HYSTERECTOMY HX 1990s ovaries intact, menorrhagia LAPAROSCOPY SURG CHOLECYSTECTOMY ALLERGIES Celebrex [Celecoxib], Oxycontin [Oxycodone Hcl], and Codeine MEDICATIONS Current Outpatient Medications Medication Sig amLODIPine (NORVASC) 2.5 mg tablet Take 2.5 mg by mouth once daily. Cholecalciferol, Vitamin D3, 50 mcg (2,000 unit) cap Take 1 capsule by mouth once daily. CYANOCOBALAMIN, VITAMIN B-12, INJECTION by INJECTION(UNSPECIFIED PARENTERAL ROUTES) route one time a week. Dr. Ny-[facility] Neuro levothyroxine (SYNTHROID) 50 mcg tablet take 1 tablet by mouth once daily ON AN EMPTY STOMACH for THYROID lisinopril (ZESTRIL) 10 mg tablet Take 10 mg by mouth once daily. Walker misc Use as needed No current facility-administered medications for this visit. FAMILY HISTORY Problem Relation Age of Onset Osteoporosis Mother Diabetes Father Pancreatic Cancer Father Diabetes Son Social History Tobacco Use Smoking status: Never Smokeless tobacco: Never Tobacco comments: No smoking in childhood home. Spouse of 40 years ex-smoker, 16 years ago. Vaping Use Vaping Use: Never used Substance Use Topics Alcohol use: No Drug use: No REVIEW OF SYSTEMS GENERAL: No weight loss, malaise or fevers/chills HEENT: Negative for frequent or significant headaches, No changes in hearing or vision. NECK: Negative for lumps, goiter, pain and significant neck swelling RESPIRATORY: Negative for cough, hemoptysis, wheezing, dyspnea or shortness of breath CARDIOVASCULAR: Negative for chest pain, leg swelling, orthopnea, or palpitations GI: No nausea, vomiting, or diarrhea/constipation. No hematochezia/melena. No heartburn or reflux symptoms. : No history of dysuria, frequency or incontinence MUSCULOSKELETAL: Negative for joint pain or swelling. SKIN: Negative for lesions, rash, and itching ENDOCRINE: Negative for cold or heat intolerance, polyuria, polydipsia and goiter NEURO: No history of headaches, syncope, paralysis, seizures or tremors MOOD: Negative for depression, anxiety, or suicidal ideation. EXAM: BP 122/70 Pulse (!) 52 Resp 16 Wt 55.8 kg (123 lb) SpO2 95% BMI 22.50 kg/m PHYSICAL EXAM: General Appearance: Well appearing, alert, in no acute distress, well-hydrated, well nourished. Skin: Skin color, texture, turgor normal, no suspicious rashes or lesions. Head: Normocephalic, no masses, lesions, tenderness or abnormalities. Eyes: Anicteric sclera. Extraocular movements are intact. Lungs: Lungs clear to auscultation. No wheezing, rhonchi, rales. Heart: RRR without murmur, gallop, or rubs. No ectopy. Extremities: No deformities, edema, skin discoloration, clubbing or cyanosis. Good capillary refill. Musculoskeletal: No joint swelling, deformity, or tenderness. Peripheral Pulses: Normal, Capillary refill <2secs, strong peripheral pulses, Pulses palpable. Neurologic: Gait unsteady, difficulty going from sitting to standing position, unsteady with walking. Reflexes normal and symmetric. Sensation grossly intact.. ASSESSMENT/PLAN: 1. Leg weakness, bilateral - ICD9: 729.89, ICD10: R29.898 (primary diagnosis) - Get labs completed. - Keep upcoming appointment with neurology. Pending evaluation and recommendations, may consider doing physical therapy in the future to work on strength and balance. - Continue to use walker for ambulation. - CONSULT TO PHYSICAL THERAPY - VITAMIN B12 BLOOD - FOLATE SERUM - VITAMIN D 25 HYDROXY - COMP METABOLIC PANEL - CBC + DIFF - IRON + TIBC - FERRITIN BLD 2. Balance problems - ICD9: 781.99, ICD10: R26.89 - Same plan as #1. 3. Encounter for immunization - ICD9: V03.89, ICD10: Z23 - VIS provided. - INFLUENZA VACCINE, PRSV FREE, AGE 65+ YR, HIGH DOSE, QUADRIVALENT (FLUZONE HIGH-DOSE) Follow-up pending test results or sooner as needed. Discussed treatment plan and patient voices understanding. Patient's questions answered appropriately. Medications and potential side effects were discussed and patient voices understanding. Allyssa Pacheco APRN.VIAL GAUGER This note was partially generated using [employer] voice recognition system. Note was reviewed for accuracy. There may be minor misspellings or grammar miscues with [employer] voice recognition. documented in this encounterOhio[facility]10-[facility] History of Past illness Narrative* Problem Noted Date Diagnosed Date Resolved Date Chronic kidney disease, stage 3a 09/13/2022 01/05/2023 Otitis media 07/02/2010 11/11/2021 Anemia, unspecified 01/25/2010 07/02/19 11 Chest pain, unspecified 12/16/200810/15 Acute upper respiratory infe ctions of unspecified site 02/10/2007 02/23/2009 Other conjunctivitis 02/10/2007 009 Esophagitis 11/13/2008 Hernia of other specified [place] of abdominal cavity without mention of obstruction or gangrene 11/11/2021 Essential hypertension, benign 11/13/2008 Abdominal pain, right lower quadrant 11/11/2021 documented as of this encounter (statuses as of 02/27/2023) [facility] Miscellaneous Notes* Telephone Encounter - Enrrique Reaves APRN.CNP - 02/23/2023 11:58 AM EDT The following approved medication requests have been transmitted electronically. Requested Prescriptions Pending Prescriptions Disp Refills levothyroxine (SYNTHROID) 50 mcg tablet [Pharmacy Med Name: LEVOTHYROXINE 50 MCG TABLET] 90 tablet 3 Sig: take 1 tablet by mouth once daily ON AN EMPTY STOMACH for THYROID Enrrique Reaves APRN.JAVI * Telephone Encounter - Judi Trivedi LPN - 02/23/2023 11:54 AM EDT Pharmacy comment: 30 to 90 day supply. documented in this encounterOhio[facility]10-12-2023 History of Past illness Narrative* Problem Noted Date Diagnosed Date Resolved Date Chronic kidney disease, stage 3a 09/13/2022 01/05/2023 Otitis media 07/02/2010 11/11/2021 Anemia, unspecified 01/25/2010 07/02/19 11 Chest pain, unspecified 12/16/200810/15 Acute upper respiratory infe ctions of unspecified site 02/10/2007 02/23/2009 Other conjunctivitis 02/10/2007 009 Esophagitis 11/13/2008 Hernia of other specified [place] of abdominal cavity without mention of obstruction or gangrene 11/11/2021 Essential hypertension, benign 11/13/2008 Abdominal pain, right lower quadrant 11/11/2021 documented as of this encounter (statuses as of 02/23/2023) [facility] Miscellaneous Notes* Telephone Encounter - Mia Holden RN - 01/31/2023 2:30 PM EDT Reason for Call: Confusion Outcome: I informed [facility] police who informed [facility] med[facility] to do a safety check. The squad is with her now * Telephone Encounter - Mia Holden RN - 01/31/2023 2:00 PM EDT Reason for Disposition [1] Dizziness (vertigo) present now AND [2] one or more STROKE RISK FACTORS (i.e., hypertension, diabetes, prior stroke/TIA, heart attack) (Exception: prior physician evaluation for this AND no different/worse than usual) Difficult to awaken or acting confused (e.g., disoriented, slurred speech) Mrs. Hernandez says her body is spinning. She doesn't feel right.Then she says it is not. Then she she says she feels numb. When asked what feels numb? Then she says, nothing. She said she took too many of her pills. She said that was last week. Then she it was last night. Then she said she discovered it last night. Lisinopril and the orange pill. Then later she said, pink pill. She says she is tired. She talks about feeding her cats. She was talking about her dying and her son dyed in a car accident in an car accident. Protocols used: Dizziness - [id number] documented in this encounterOhiohealth [facility]09-19-2023 History of Past illness Narrative* Problem Noted Date Diagnosed Date Resolved Date Chronic kidney disease, stage 3a 09/13/2022 01/05/2023 Otitis media 07/02/2010 11/11/2021 Anemia, unspecified 01/25/2010 07/02/19 11 Chest pain, unspecified 12/16/200810/15 Acute upper respiratory infe ctions of unspecified site 02/10/2007 02/23/2009 Other conjunctivitis 02/10/2007 009 Esophagitis 11/13/2008 Hernia of other specified [place] of abdominal cavity without mention of obstruction or gangrene 11/11/2021 Essential hypertension, benign 11/13/2008 Abdominal pain, right lower quadrant 11/11/2021 documented as of this encounter (statuses as of 02/01/2023) [facility] Miscellaneous Notes* Telephone Encounter - Martine Vargas RN - 01/10/2023 8:44 AM EDT Patient calls and notified that she is ok to stop B12 injections per provider. Patient voices understanding. Martine Vargas RN * Telephone Encounter - Johanna Wilson Cma - 01/10/2023 8:40 AM EDT Left message for patient to return call to office Jhoanna Wilson Cma * Telephone Encounter - Dylan Cruz MD - 01/09/2023 6:40 PM EDT Yes, she may stop taking the vitamin B12 injections Dylan Cruz MD * Telephone Encounter - Susanna Matute LPN - 01/06/2023 1:28 PM EDT Patient calling asking if she can stop taking the Vitamin B 12 injections? Dr Ny told her to ask her PCP that question. Patient said she has been getting the injections for 5 months and not feeling any better, thinks she is having side effects. Please advise documented in this encounterOhio[facility]23 History of Past illness Narrative* Problem Noted Date Diagnosed Date Resolved Date Chronic kidney disease, stage 3a 09/13/2022 01/05/2023 Otitis media 07/02/2010 11/11/2021 Anemia, unspecified 01/25/2010 07/02/19 11 Chest pain, unspecified 12/16/200810/15 Acute upper respiratory infe ctions of unspecified site 02/10/2007 02/23/2009 Other conjunctivitis 02/10/2007 009 Esophagitis 11/13/2008 Hernia of other specified [place] of abdominal cavity without mention of obstruction or gangrene 11/11/2021 Essential hypertension, benign 11/13/2008 Abdominal pain, right lower quadrant 11/11/2021 documented as of this encounter (statuses as of 01/10/2023) [facility]08-24-[facility]23 NoteHNO ID: [id number] Author: Dylan Cruz MD Service: ? Author Type: Physician Type: Progress Notes Filed: 01/05/2023 3:48 PM Note Text: Chief Complaint Patient presents with: 6 Month Exam HPI Yuliya Hernandez is a 82 year old female who presents here today for 6 month follow up. No urinary or bowel issues. She has stomach bloating, before eating. It will eventually get better. No gas, no diarrhea or constipation. Has seen Gastro Dr. Morales in the past. Hx of nausea, states it comes and goes. Has been on PPI in the past but no longer taking. Feels her stomach issues are related to her stress. She stated that Dr. Morales wanted her to do a food test but it will cost her $300. She is thinking about stopping the B12 injections because she feels that is making her feel bad. She is drinking 3 oz of Nopalea that is made from cactus. She doesn't feel it is helping much. HTN: Does check BP occ at home with reading 171/80. Her neighbor came over and checked her BP with her machine and it was 151/80. She has a wrist cuff she uses. Denies chest pains, dizziness, or SOB. Following with [facility]. Is on Norvasc 2.5 mg daily and Lisinopril 10 mg daily. RIYA: Anxious; not taking any medications. Has been on meds in the past but didn't feel they helped much and they caused GI upset. She states her anxiety has been doing bad. She does not do any counseling. She states she has tried taking medication but it made her stomach upset: Buspar and Fluoxetine. Pt crying in the office today. States she is not feeling well. She wakes up in the mornings and feels good but then as the day goes on she starts feeling ill. She has been told that it is due to her stress. She is lonely at home, but states she has people that come to her home and that she stays busy with things around the home. 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 She goes to [employer] and participates there. Her dog and she misses her a lot. Thyroid: Taking Levoxyl 50 mcg daily, no missed dosages. Gait/Parkinson's: Has seen Neuro, Dr. Macias and has seen Dr. Ny last month but states she has not been told when to follow up. She is no longer using Sinemet; Dr Macias felt that she did not have Parkinsons. Denies any falls. She uses a rolator walker to get around. Feels she doesn't walk well. Saw Dr. Martinez for her leg pain. The leg has been feeling better, no pain the last 2 days. Past medical history, appointments, medications, allergies reviewed. Previous Medical History PAST MEDICAL HISTORY Diagnosis Date Abdominal pain, right lower quadrant stress related Abnormal stress test Back fracture 2006 caused by accident, lumbar facet CAD (coronary artery disease) Chest pain Chest pain, unspecified 10/29/2001 admitted [facility] CP: Mi ruled out; Persantine stress echo WNL. Dx: esophagitis CHF (congestive heart failure) ([facility]) Chronic systolic (congestive) heart failure (HCC) DDD (degenerative disc disease) Diaphragmatic hernia without mention of obstruction or gangrene 12/2001 Hiatal hernia per EGD Dyspnea Esophagitis 12/2001 per EGD Essential hypertension, benign Fatigue Fibromyalgia Hyperlipidemia diet controlled Hyperlipidemia NSTEMI (non-ST elevated myocardial infarction) ([facility]) Osteopenia 10/2004 Other anxiety states Other specified anemias 12/2001 PAC (premature atrial contraction) Paroxysmal atrial tachycardia ([facility]) PMH - PAST MEDICAL HISTORY OF post trama in left knee Sinus bradycardia SVT (supraventricular tachycardia) ([facility]) Tachycardia Takotsubo cardiomyopathy Unspecified hemorrhoids without mention of complication 12/2001 Hemorrhoids, scattered diverticula per colonoscopy Previous Surgical History PAST SURGICAL HISTORY Procedure Laterality Date APPENDECTOMY ARTHRP KNE CONDYLEANDPLATU MEDIALANDLAT COMPARTMENTS Left 2007 Knee replacement, total (left knee) CARDIAC CATH 09/15/2017 possible severe proximal LAD stenosis; FFR showed no flow limitation to indicate a significant stenosis CARDIOLITE STRESS TEST 02/27/2018 modified Fer protocol, 90% MPHR, 3 METs; no ischemia or scar; LVEF 65% DELIVERY ONLY 1974 , low transverse COLONOSCOPY FLX DX W/COLLJ SPEC WHEN PFRMD 12/26/012008 Colonoscopy: scattered diverticula, internal hemorrhoids CYSTOSCOPY,URETEROSCOPY,LITHOTRIPSY ECHOCARDIOGRAM 02/09/2018 normal LV systolic fxn LVEF 60% with apical hypokinesis; moderate LAE; 1-2+ MR; 2+ TR; 1+ AI and PI EGD 12/17/01 ESOPHAGOGASTRODUODENOSCOPY TRANSORAL DIAGNOSTIC 01/25/2010 EGD HOLTER MONITOR 24 HOUR 12/18/2017 sinus rhythm; min HR 40 bpm; max HR 117 bpm; avg HR 70 bpm; frequent PACs, atrial couplets, atrial bigeminy, and runs of paroxysmal atrial tachycardia (longest run 658 beats at 119 bpm, fastes (more content not included)...[facility]08-24-[facility] History of Present illness Narrative* Dylan Cruz MD - 01/05/2023 3:00 PM EDT Chief Complaint Patient presents with: 6 Month Exam HPI Yuliya Hernandez is a 82 year old female who presents here today for 6 month follow up. No urinary or bowel issues. She has stomach bloating, before eating. It will eventually get better.No gas, no diarrhea or constipation. Has seen Gastro DrFreya Friend in the past. Hx of nausea, states it comes and goes. Has been on PPI in the past but no longer taking. Feels her stomach issues are related to her stress. She stated that DrFreya Friend wanted her to do a food test but it will cost her $300. She is thinking about stopping the B12 injections because she feels that is making her feel bad. She is drinking 3 oz of Nopalea that is made from cactus. She doesn't feel it is helping much. HTN: Does check BP occ at home with reading 171/80. Her neighbor came over and checked her BP with her machine and it was 151/80. She has a wrist cuff she uses. Denies chest pains, dizziness, or SOB.Following with [facility]. Is on Norvasc 2.5 mg daily and Lisinopril 10 mg daily. RIYA: Anxious; not taking any medications. Has been on meds in the past but didn't feel they helped much and they caused GI upset. She states her anxiety has been doing bad. She does not do any counseling. She states she has tried taking medication but it made her stomach upset: Buspar and Fluoxetine. Pt crying in the office today. States she is not feeling well. She wakes up in the mornings and feels good but then as the day goes on she starts feeling ill. She has been told that it is due to her stress. She is lonely at home, but states she has people that come to her home and that she stays busy with things around the home. 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 She goes to [employer] andparticipates there. Her dog and she misses her a lot. Thyroid: Taking Levoxyl 50 mcg daily, no missed dosages. Gait/Parkinson's: Has seen Neuro, Dr. Macias and has seen Dr. Ny last month but states she has not been told when to follow up. She is no longer using Sinemet; Dr Macias felt that she did not haveParkinsons. Denies any falls. She uses a rolator walker to get around. Feels she doesn't walk well. Saw Dr. Martinez for her leg pain. The leg has been feeling better, no pain the last 2 days. Past medical history, appointments, medications, allergies reviewed. Previous Medical History PAST MEDICAL HISTORY Diagnosis Date Abdominal pain, right lower quadrant stress related Abnormal stress test Back fracture 2006 caused by accident, lumbar facet CAD (coronary artery disease) Chest pain Chest pain, unspecified 10/29/2001 admitted [facility] CP: Mi ruled out; Persantine stress echo WNL. Dx: esophagitis CHF (congestive heart failure) (HCC) Chronic systolic (congestive) heart failure (HCC) DDD (degenerative disc disease) Diaphragmatic hernia without mention of obstruction or gangrene 12/2001 Hiatal hernia per EGD Dyspnea Esophagitis 12/2001 per EGD Essential hypertension, benign Fatigue Fibromyalgia Hyperlipidemia diet controlled Hyperlipidemia NSTEMI (non-ST elevated myocardial infarction) (HCC) Osteopenia 10/2004 Other anxiety states Other specified anemias 12/2001 PAC (premature atrial contraction) Paroxysmal atrial tachycardia (HCC) PMH - PAST MEDICAL HISTORY OF post trama in left knee Sinus bradycardia SVT (supraventricular tachycardia) (HCC) Tachycardia Takotsubo cardiomyopathy Unspecified hemorrhoids without mention of complication 12/2001 Hemorrhoids, scattered diverticula per colonoscopy Previous Surgical History PAST SURGICAL HISTORY Procedure Laterality Date APPENDECTOMY ARTHRP KNE CONDYLE&PLATU MEDIAL&LAT COMPARTMENTS Left 2006 Knee replacement, total (left knee) CARDIAC CATH 09/15/2017 possible severe proximal LAD stenosis; FFR showed no flow limitation to indicate a significant stenosis CARDIOLITE STRESS TEST 02/27/2018 modified Fer protocol, 90% MPHR, 3 METs; no ischemia or scar; LVEF 65% DELIVERY ONLY 1974 , low transverse COLONOSCOPY FLX DX W/COLLJ SPEC WHEN PFRMD 12/26/012008 Colonoscopy: scattered diverticula, internal hemorrhoids CYSTOSCOPY,URETEROSCOPY,LITHOTRIPSY ECHOCARDIOGRAM 02/09/2018 normal LV systolic fxn LVEF 60% with apical hypokinesis; moderate LAE; 1-2+ MR; 2+ TR; 1+ AI and PI EGD 12/17/01 ESOPHAGOGASTRODUODENOSCOPY TRANSORAL DIAGNOSTIC 01/25/2010 EGD HOLTER MONITOR 24 HOUR 12/18/2017 sinus rhythm; min HR 40 bpm; max HR 117 bpm; avg HR 70 bpm; frequent PACs, atrial couplets, atrial bigeminy, and runs of paroxysmal atrial tachycardia (longest run 658 beats at 119 bpm, fastest run 121 bpm). no symptoms reported HYSTERECTOMY HX 1990s ovaries intact, menorrhagia LAPAROSCOPY SURG CHOLECYSTECTOMY Family History FAMILY HISTORY Problem Relation Age of Onset Osteoporosis Mother Diabetes Father Pancreatic Cancer Father Diabetes Son Patient Allergies ALLERGIES Allergen Reactions Celebrex [Celecoxib] Mental Status Change nightmares Oxycontin [Oxycodon* GI Upset Codeine GI Upset Current Medications Current Outpatient Medications on File Prior to Visit Medication Sig Walker misc Use as needed levothyroxine (LEVOXYL) 50 mcg tablet Take 1 tablet by mouth once daily. Take on empty stomach. ForThyroid amLODIPine (NORVASC) 2.5 mg tablet Take 2.5 mg by mouth once daily. lisinopril (ZESTRIL) 10 mg tablet Take 10 mg by mouth once daily. CYANOCOBALAMIN, VITAMIN B-12, INJECTION by INJECTION(UNSPECIFIED PARENTERAL ROUTES) route one time a week. Dr. Ny-[facility] Neuro vit A/vit C/vit E/zinc/copper (PRESERVISION AREDS ORAL) Take by mouth. (Patient not taking: Reported on 10/17/2022) lisinopril (ZESTRIL, PRINIVIL) 20 mg tablet Take 0.5 tablets by mouth once daily. (Patient not taking: No sig reported) amLODIPine (NORVASC) 5 mg tablet Take 0.5 tablets by mouth once daily. Cholecalciferol, Vitamin D3, 50 mcg (2,000 unit) cap Take 1 capsule by mouth once daily. carbidopa-levodopa (SINEMET 25-100) 25-100 mg per tablet Take 1 tablet by mouth three times daily. (Patient not taking: No sig reported) No current facility-administered medications on file prior to visit. Social History Social History Tobacco Use Smoking status: Never Smokeless tobacco: Never Tobacco comments: No smoking in childhood home. Spouse of 40 years ex-smoker, 16 years ago. Vaping Use Vaping Use: Never used Substance Use Topics Alcohol use: No Drug use: No EXAM: BP 150/88 Pulse 74 Resp 16 Wt 59.4 kg (130 lb 14.4 oz) BMI 23.94 kg/m General Appearance: Well appearing, alert, in no acute distress, well-hydrated, well nourished. andWalker. Lungs: Lungs clear to auscultation. No wheezing, rhonchi, rales.. Heart: RRR without murmur, gallop, or rubs. No ectopy. Health Maintenance List DTAP,TDAP,TD(1 - Tdap) due on 01/25/2003 SHINGRIX VACCINE(2 of 3) due on 04/09/2014 COVID-19 VACCINE(4 - Moderna series) due on 05/11/2021 ADVANCE DIRECTIVE DISCUSSION Never done INFLUENZA(1) due on 01/13/2023 DIABETES SCREEN due on 09/13/2025 BONE DENSITY Completed DEPRESSION ASSESSMENT Completed PNEUMOCOCCAL: 65+ Completed COLORECTAL CANCER SCREENING Discontinued Data reviewed none ASSESSMENT/PLAN: 1. Anxiety - ICD9: 300.00, ICD10: F41.9 (primary diagnosis) Uncontrolled Declined medication treatemtn 2. Essential hypertension, benign - ICD9: 401.1, ICD10: I10 Fair control - Continue current medications - Recommend home blood pressure monitoring, to bring results to next visit - Encouraged sodium restriction, DASH or Mediterranean diet - Recommend regular aerobic exercise 3. Acquired hypothyroidism - ICD9: 244.9, ICD10: E03.9 Continue current medications. 4. Upset stomach - ICD9: 536.8, ICD10: K30 - Recommend follow up with Gastro DrFreya Friend - Maybe anxiety related Follow up in 3 months. I agree with the Chief Complaint, ROS, and Past Histories independently gathered by the clinical aircraft life support fitter and the remaining scribed note accurately describes my personal service to the patient. Medical Decision Making: Problems: Moderate: 2+ stable chronic illnesses Risk: Moderate: Drug management Medical Decision Making Level: 4 - Moderate Dylan Cruz MD The documentation for this note was completed by Rebekah Lemos Ma acting as scribe for Dylan Cruz MD. January 05, 2023 2:52 PM. Rebekah Lemos Ma documented in this encounterOhio[facility]08-24-2023 History of Past illness Narrative* Problem Noted Date Diagnosed Date Resolved Date Chronic kidney disease, stage 3a 09/13/2022 01/05/2023 Otitis media 07/02/2010 11/11/2021 Anemia, unspecified 01/25/2010 07/02/19 11 Chest pain, unspecified 12/16/200810/15 Acute upper respiratory infe ctions of unspecified site 02/10/2007 02/23/2009 Other conjunctivitis 02/10/2007 009 Esophagitis 11/13/2008 Hernia of other specified [place] of abdominal cavity without mention of obstruction or gangrene 11/11/2021 Essential hypertension, benign 11/13/2008 Abdominal pain, right lower quadrant 11/11/2021 documented as of this encounter (statuses as of 01/06/2023) [facility]07-21-[facility]23 NoteHNO ID: [id number] Author: Jeovanny Macias Jr., MD Service: ? Author Type: Physician Type: Progress Notes Filed: 12/02/2022 3:25 PM Note Text: NEW PATIENT (CONSULT) HISTORY AND PHYSICAL EXAM PRIMARY CARE PHYSICIAN: Dylan Cruz MD REASON FOR CONSULT: Second opinion re PD REFERRING PHYSICIAN: No ref. provider found CHIEF COMPLAINT: I dont believe I have Parkinson's Consultation requested by No ref. provider found for an opinion regarding chief complaint of Patient presents with: New Patient Evaluation and my final recommendations will be communicated back to the requesting physician by way of shared medical record or letter via US mail. HISTORY OF PRESENT ILLNESS: Yuliya Hernandez is a 82 year old female, BMI 23.37 kg/m2 with a PMH significant for PD made 1 year ago - was on Sinemet briefly but stopped as did not improve symptoms. Note had seen neurologist at [facility] and prior records not available for review. States was evaluated due to the way she walks. No tremors. No issues fine motor tasks. No changes in hand writing. 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 No falls. Goes up and down 11 steps daily without issue. No acting out dreams or RBD behavior. Pt does have L spine stenosis for which she see chiropractor - injections did not help and pt not wanting surgery. No constipation. Voice is softer but pt states it is due to her hearing be more sensitive. Gradfather and brother with dx of PD. REVIEW OF SYSTEMS GENERAL:No weight loss, malaise or fevers. HEENT:Negative for frequent or significant headaches, No changes in hearing or vision, no nose bleeds or other nasal problems NECK:Negative for lumps, goiter, pain and significant neck swelling RESPIRATORY: Negative for cough, wheezing or shortness of breath. CARDIOVASCULAR: Negative for chest pain, leg swelling or palpitations. GASTROINTESTINAL: Patient becomes focused on nausea during visit. States has seen by GI. Told by them that it was likely due to stress per pt. GENITOURINARY: No history of dysuria, frequency or incontinence MUSCULOSKELETAL: See HPI. NEUROLOGIC:See HPI. SKIN:Negative for lesions, rash, and itching. HEMATOLOGIC/LYMPHATIC/IMMUNOLOGIC:Negative for prolonged bleeding, bruising easily or swollen nodes. ENDOCRINE: Negative for cold or heat intolerance, polyuria, polydipsia and goiter. The remainder of the ROS was reviewed and is negative. LAB/IMAGING: Reviewed and include: WBC (k/uL) Date Value 09/13/2022 7.64 RBC (m/uL) Date Value 09/13/2022 4.52 Hemoglobin (g/dL) Date Value 09/13/2022 13.5 Hematocrit (%) Date Value 09/13/2022 42.8 MCV (fL) Date Value 09/13/2022 94.7 MCH (pg) Date Value 09/13/2022 29.9 MCHC (g/dL) Date Value 09/13/2022 31.5 RDW-CV (%) Date Value 09/13/2022 13.2 Platelet Count (k/uL) Date Value 09/13/2022 206 MPV (fL) Date Value 09/13/2022 11.2 Glucose (mg/dL) Date Value 09/13/2022 96 BUN (mg/dL) Date Value 09/13/2022 19 Creatinine (mg/dL) Date Value 09/13/2022 0.84 Sodium (mmol/L) Date Value 09/13/2022 143 Potassium (mmol/L) Date Value 09/13/2022 4.8 Chloride (mmol/L) Date Value 09/13/2022 106 (H) CO2 (mmol/L) Date Value 09/13/2022 27 Protein, Total (g/dL) Date Value 09/13/2022 7.3 Albumin (g/dL) Date Value 09/13/2022 4.1 Calcium, Total (mg/dL) Date Value 09/13/2022 9.7 Alkaline Phosphatase (U/L) Date Value 09/13/2022 111 Bilirubin, Total (mg/dL) Date Value 09/13/2022 0.3 AST (U/L) Date Value 09/13/2022 22 ALT (U/L) Date Value 09/13/2022 6 (L) MEDICATIONS: [facility] Use as needed levothyroxine (LEVOXYL) 50 mcg tablet Take 1 tablet by mouth once daily. Take on empty stomach. For Thyroid amLODIPine (NORVASC) 2.5 mg tablet Take 2.5 mg by mouth once daily. lisinopril (ZESTRIL) 10 mg tablet Take 10 mg by mouth once daily. CYANOCOBALAMIN, VITAMIN B-12, INJECTION by INJECTION(UNSPECIFIED PARENTERAL ROUTES) route one time a week. Dr. Ny-[facility] Neuro amLODIPine (NORVASC) 5 mg tablet Take 0.5 tablets by mouth once daily. Cholecalciferol, Vitamin D3, 50 mcg (2,000 unit) cap Take 1 capsule by mouth once daily. vit A/vit C/vit E/zinc/copper (PRESERVISION AREDS ORAL) Take by mouth. (Patient not taking: Reported on 10/17/2022) lisinopril (ZESTRIL, PRINIVIL) 20 mg tablet Take 0.5 tablets by mouth once daily. (Patient not taking: No sig reported) carbidopa-levodopa (SINEMET 25-100) 25-100 mg per tablet Take 1 tablet by mouth three times daily. (Patient not taking: No sig reported) HISTORIES PAST MEDICAL HISTORY Diagnosis Date Abdominal pain, right lower quadrant stress related Abnormal stress test Back fracture 2006 caused by accident, lumbar facet CAD (coronary artery disease) Chest pain Chest pain, unspecified 10/29/2001 admitted [facility] CP: Mi ruled out; Persantine stress echo WNL. Dx: esophagitis CH (more content not included)...[facility]07-13-2023 Miscellaneous Notes* Telephone Encounter - Jody Oconnell Ma - 11/24/2022 4:47 PM EDT Call to pt as soon as she picked up the phone, pt notified me that she found a Russell Martin at the [employer] (I believe is what she said) and she's in love with it. She went and visited it today and she wants to get it. She ended the call with them to product picker our call. Pt notes that she losther 13 y/o Russell Terrier at the beginning of October that was born at her home, and she's been a messsince her dog . Pt said that her son-in-law was talking to her about BP medications that he takes, HCTZ and maybe it should be something she tries or possible increasing the medication dosages she's on. I notified pt of PCP's response below. After talking to pt I told her that she just lost her dog last month and her elevated BP and not feeling well may be related to this. She understood and agreed. I notified her if she wanted to get this puppy, then she should call the place back and adopt the puppy and maybe she would be happy, feelbetter and less stressed. Advised her to check her BP during this time before we would adjust any of her medications. Pt agreed with this, appreciated the phone call back. Jody Oconnell Ma * Telephone Encounter - Dylan Cruz MD - 11/24/2022 4:08 PM EDT May continue to monitor BP, it is just slightly elevated. See how it does now that her sister and her cat are there. Dylan Cruz MD * Telephone Encounter - Joanne Brambila RN - 11/23/2022 4:42 PM EDT Patient calling back with BP reading. BP 166/90 at 3:30pm today. Pt verbalizes I'm always stressed . Denies any recent life changes. Takes BP medication in the mornings-amlodipine and lisinopril. Talking fast on phone and talking constantly. States her sister just arrived to her home with a cat and that they will make her feel better. Pt had recent OV on 10/17/22and no medication changes were made. Patient would like Dr. Cruz to advise her in next 24 hours. Continues to deny chest pain, sob, dizziness or any visual changes. Pt aware to call 911 for any severe sx's. Please advise patient. Thank you. * Telephone Encounter - Sho Lechuga LPN - 11/23/2022 2:08 PM EDT Pt reports last pm (8PM) her blood pressure was 150/90, emmanuel'd within the hour & it was 140/80.Pt is concerned about this. Pt denies chest pain, sob, dizziness or any visual changes. Pt states her sister will be visiting this afternoon & will check pt's BP then. Pt will call back with BP reading then. Pt states she is always stressed out. Reports she always has stomach problems, bloating & pressure, states she watches what she eats. Pt states she is scheduled to see Dr Macias 12/02/22. Sho Lechuga LPN documented in this encounterOhio[facility]06-20-2023 Miscellaneous Notes* Telephone Encounter - Rebekah Lemos Ma - 11/01/2022 5:04 PM EDT Rx faxed to number below. Rebekah Lemos Ma * Telephone Encounter - Dylan Cruz MD - 11/01/2022 5:03 PM EDT Rx printed Dylan Cruz MD * Telephone Encounter - Sho Lechuga LPN - 11/01/2022 4:40 PM EDT Pt states she bought a walker today at [facility] & if her pcp sends a letter to them statingshe medically needs the walker she will not have to pay sales tax. Fax # is [phone]. Pt reports her BP today was 157/90. Sho Lechuga LPN documented in this encounterOhiohealth [facility]06-05-2023 NoteHNO ID: [id number] Author: Enrrique Reaves APRN.VIAL GAUGER Service: ? Author Type: Nurse Practitioner Type: Progress Notes Filed: 10/17/2022 1:42 PM Note Text: Chief Complaint Patient presents with: Fatigue: With generalized weakness HPI Yuliya Hernandez is a 82 year old female who presents here today for Chronic Medical Conditions. Patient is here for complaints of continued overall generalized fatigue. Also leg weakness. Patient has had this complaint for an extended time period. She has had recent blood work completed including normal TSH, CBC, CMP with her PCP. She then saw a generator technician for further evaluation. All testing came back normal and was referred back to us. At the last encounter with her P CP, Sinemet was discontinued due to complaints of nausea. She was also referred to neurology. Had an appointment with [facility] neurolog[facility] but it was canceled. Has saw Dr. Ny with neurology outside of the [facility] and was diagnosed with Parkinson's disease. In May 2022 patient had a MRI of the lumbar spine which showed mild progression of degenerative disc disease without significant progression of spinal stenosis. Patient has a history of NSTEMI, CAD, SVT, chronic systolic heart failure, orthostatic hypotension, paroxysmal atrial tachycardia, PACs, Takotsubo syndrome in which she is followed by [facility]. Last echocardiogram on file for us was 2019 which showed preserved EF function. Stress test in 2019 also was normal. Had a normal PSG a few years ago at [facility] and it was normal Lengthily discussion with patient is that her upper leg weakness does not occur until she eats. She states that most of her day it is without any symptoms. It is intermittent. Stating that she cannot figure out what is causing this to occur. Tries to stay away from gluten and lactose. She states that when she goes to feed the cats it goes away. Past medical history, appointments, medications, allergies reviewed. EXAM: BP 120/72 Pulse 105 Resp 16 Wt 58.2 kg (128 lb 6.4 oz) SpO2 99% BMI 23.48 kg/m? General Appearance: Well appearing, alert, in no acute distress, well-hydrated, well nourished.. Lungs: Lungs clear to auscultation. No wheezing, rhonchi, rales.. Heart: RRR without murmur, gallop, or rubs. No ectopy. Abdomen: Normal abdominal exam, Abdomen soft, non-tender. Bowel sounds normal. No masses, organomegaly. External labs reviewed, from 10/06 Dr. Morales's office. Stacey CMP, Vitamin B12 Component Latest Ref Rng AND Units 05/17/2022 09/13/2022 WBC 3.70 - 11.00 k/uL 5.95 7.64 RBC 3.90 - 5.20 m/uL 4.04 4.52 Hemoglobin 11.5 - 15.5 g/dL 12.2 13.5 Hematocrit 36.0 - 46.0 % 37.8 42.8 MCV 80.0 - 100.0 fL 93.6 94.7 MCH 26.0 - 34.0 pg 30.2 29.9 MCHC 30.5 - 36.0 g/dL 32.3 31.5 RDW-CV 11.5 - 15.0 % 12.5 13.2 Platelet Count 150 - 400 k/uL 173 206 MPV 9.0 - 12.7 fL 11.0 11.2 Neut% % 76.9 Abs Neut (ANC) 1.45 - 7.50 k/uL 5.88 Lymph% % 14.3 Abs Lymph 1.00 - 4.00 k/uL 1.09 [place]% % 6.8 Abs [place] <0.87 k/uL 0.52 Eosin% % 1.2 Abs Eosin <0.46 k/uL 0.09 Baso% % 0.5 Abs Baso <0.11 k/uL 0.04 Immature Gran % % 0.3 IMMATURE GRANS (ABS) <0.10 k/uL <0.03 NRBC /100 WBC 0.0 Absolute nRBC <0.01 k/uL <0.01 <0.01 DTYPE Auto Protein, Total 6.3 - 8.0 g/dL 6.5 7.3 Albumin 3.9 - 4.9 g/dL 4.0 4.1 Calcium 8.5 - 10.2 mg/dL 9.3 9.7 Bilirubin, Total 0.2 - 1.3 mg/dL 0.3 0.3 Alkaline Phosphatase 34 - 123 U/L 95 111 AST 13 - 35 U/L 23 22 ALT 7 - 38 U/L 20 6 (L) Glucose 74 - 99 mg/dL 91 96 BUN 7 - 21 mg/dL 21 19 Creatinine 0.58 - 0.96 mg/dL 0.84 0.84 Sodium 136 - 144 mmol/L 141 143 Potassium 3.7 - 5.1 mmol/L 4.1 4.8 Chloride 97 - 105 mmol/L 106 (H) 106 (H) CO2 22 - 30 mmol/L 26 27 Anion Gap 9 - 18 mmol/L 9 10 eGFR >=60 mL/min/1.73mA? 70 70 TSH 0.270 - 4.200 mIU/L 1.980 1.870 Vitamin B12 232 - 1,245 pg/mL 407 Magnesium 1.7 - 2.3 mg/dL 2.2 CRP <0.9 mg/dL <0.3 ASSESSMENT/PLAN: 1. Fatigue, unspecified type - ICD9: 780.79, ICD10: R53.83 (primary diagnosis) -Provided reassurance. See #2 2. Leg weakness, bilateral - ICD9: 729.89, ICD10: R29.898 -Intermittent, patient stating that it is secondary to eating. Discussed with patient that she has had multiple blood work panels, MRI of lower spine and EMG which does not indicate any type of hematologic, metabolic or neurologic problem. I asked the patient to keep a food diary, continue to follow with gastroenterology. The patient is describing a likely GI follow-through study to be completed within the next week. Enrrique Reaves APRN.JAVI I spent a total of 39 minutes on the date of the service which included preparing to see the patient, [id number] patient care, completing clinical documentation, obtaining and/or reviewing separately obtained history, performing a medically appropriate examination, and counseling and educating the patient/family/caregiver. This note was partly generated using D (more content not included)...[facility]06-05-2023 History of Present illness Narrative* Enrrique Reaves APRN.CNP - 10/17/2022 1:00 PM EDT Chief Complaint Patient presents with: Fatigue: With generalized weakness HPI Yuliya Hernandez is a 82 year old female who presents here today for Chronic Medical Conditions. Patient is here for complaints of continued overall generalized fatigue. Also leg weakness. Patienthas had this complaint for an extended time period. She has had recent blood work completed including normal TSH, CBC, CMP with her PCP. She then saw a generator technician for further evaluation. All testing came back normal and was referred back to us. At the last encounter with her P CP, Sinemet was discontinued due to complaints of nausea. She was also referred to neurology. Had an appointment with [facility] but it was canceled. Has saw Dr. Ny with neurology outside of the [facility] and was diagnosed with Parkinson's disease. In May 2022 patient had a MRI of the lumbar spine which showed mild progression of degenerative disc disease without significant progression of spinal stenosis. Patient has a history of NSTEMI, CAD, SVT, chronic systolic heart failure, orthostatic hypotension,paroxysmal atrial tachycardia, PACs, Takotsubo syndrome in which she is followed by [facility]. Last echocardiogram on file for us was 2019 which showed preserved EF function. Stress test in 2019 also was normal. Had a normal PSG a few years ago at [facility] and it was normal Lengthily discussion with patient is that her upper leg weakness does not occur until she eats. Shestates that most of her day it is without any symptoms. It is intermittent. Stating that she cannotfigure out what is causing this to occur. Tries to stay away from gluten and lactose. She states that when she goes to feed the cats it goes away. Past medical history, appointments, medications, allergies reviewed. EXAM: BP 120/72 Pulse 105 Resp 16 Wt 58.2 kg (128 lb 6.4 oz) SpO2 99% BMI 23.48 kg/m General Appearance: Well appearing, alert, in no acute distress, well-hydrated, well nourished.. Lungs: Lungs clear to auscultation. No wheezing, rhonchi, rales.. Heart: RRR without murmur, gallop, or rubs. No ectopy. Abdomen: Normal abdominal exam, Abdomen soft, non-tender. Bowel sounds normal. No masses, organomegaly. External labs reviewed, from 10/06 Dr. Morales's office. Stacey CMP, Vitamin B12 Component Latest Ref Rng & Units 05/17/2022 09/13/2022 WBC 3.70 - 11.00 k/uL 5.95 7.64 RBC 3.90 - 5.20 m/uL 4.04 4.52 Hemoglobin 11.5 - 15.5 g/dL 12.2 13.5 Hematocrit 36.0 - 46.0 % 37.8 42.8 MCV 80.0 - 100.0 fL 93.6 94.7 MCH 26.0 - 34.0 pg 30.2 29.9 MCHC 30.5 - 36.0 g/dL 32.3 31.5 RDW-CV 11.5 - 15.0 % 12.5 13.2 Platelet Count 150 - 400 k/uL 173 206 MPV 9.0 - 12.7 fL 11.0 11.2 Neut% % 76.9 Abs Neut (ANC) 1.45 - 7.50 k/uL 5.88 Lymph% % 14.3 Abs Lymph 1.00 - 4.00 k/uL 1.09 [place]% % 6.8 Abs [place] <0.87 k/uL 0.52 Eosin% % 1.2 Abs Eosin <0.46 k/uL 0.09 Baso% % 0.5 Abs Baso <0.11 k/uL 0.04 Immature Gran % % 0.3 IMMATURE GRANS (ABS) <0.10 k/uL <0.03 NRBC /100 WBC 0.0 Absolute nRBC <0.01 k/uL <0.01 <0.01 DTYPE Auto Protein, Total 6.3 - 8.0 g/dL 6.5 7.3 Albumin 3.9 - 4.9 g/dL 4.0 4.1 Calcium 8.5 - 10.2 mg/dL 9.3 9.7 Bilirubin, Total 0.2 - 1.3 mg/dL 0.3 0.3 Alkaline Phosphatase 34 - 123 U/L 95 111 AST 13 - 35 U/L 23 22 ALT 7 - 38 U/L 20 6 (L) Glucose 74 - 99 mg/dL 91 96 BUN 7 - 21 mg/dL 21 19 Creatinine 0.58 - 0.96 mg/dL 0.84 0.84 Sodium 136 - 144 mmol/L 141 143 Potassium 3.7 - 5.1 mmol/L 4.1 4.8 Chloride 97 - 105 mmol/L 106 (H) 106 (H) CO2 22 - 30 mmol/L 26 27 Anion Gap 9 - 18 mmol/L 9 10 eGFR >=60 mL/min/1.73m 70 70 TSH 0.270 - 4.200 mIU/L 1.980 1.870 Vitamin B12 232 - 1,245 pg/mL 407 Magnesium 1.7 - 2.3 mg/dL 2.2 CRP <0.9 mg/dL <0.3 ASSESSMENT/PLAN: 1. Fatigue, unspecified type - ICD9: 780.79, ICD10: R53.83 (primary diagnosis) -Provided reassurance. See #2 2. Leg weakness, bilateral - ICD9: 729.89, ICD10: R29.898 -Intermittent, patient stating that it is secondary to eating. Discussed with patient that she has had multiple blood work panels, MRI of lower spine and EMG which does not indicate any type of hematologic, metabolic or neurologic problem. I asked the patient to keep a food diary, continue to follow with gastroenterology. The patient is describing a likely GI follow-through study to be completed within the next week. Enrrique Reaves APRN.VIAL GAUGER I spent a total of 39 minutes on the date of the service which included preparing to see the patient, [id number] patient care, completing clinical documentation, obtaining and/or reviewing separately obtained history, performing a medically appropriate examination, and counseling and educating the patient/family/caregiver. This note was partly generated using [employer] voice recognition dictation and may contain some misspelled or inaccurate words missed on review. documented in this encounterOhio[facility]06-02-2023 Miscellaneous Notes* Telephone Encounter - Rebekah Lemos Ma - 10/14/2022 4:53 PM EDT Pt states she is scheduled with Dr. Perez, that is who her insurance recommended. Rebekah Lemos Ma * Telephone Encounter - Jody Oconnell Ma - 10/13/2022 5:23 PM EDT Pt can be seen here by Dr. Veliz, will just need to schedule when she returns call. Jody Oconnell Ma * Telephone Encounter - Dylan Cruz MD - 10/13/2022 4:25 PM EDT OK to refer as requested Dylan Cruz MD * Telephone Encounter - Alma Lowery LPN - 10/13/2022 1:30 PM EDT Pt calls requesting an order for a culinary artist. She states her toe nails so hard she can not cut them herself. She states she is going to call her insurance and see who they will cover and will call us back of where to fax information. documented in this encounterOhiohealth Marion [facility] Hospital06-02-2023 Miscellaneous Notes* Telephone Encounter - Rebekah Lemos Ma - 10/14/2022 4:52 PM EDT Pt notified, scheduled first available with Enrrique Reaves 10/17/22 at 1 PM. Pt accepted Rebekah Lemos Ma * Telephone Encounter - Dylan Cruz MD - 10/14/2022 4:30 PM EDT I am not sure what to advise over the phone; she would need to be seen to figure out what is going on. Dylan Cruz MD * Telephone Encounter - Alma Lowery LPN - 10/14/2022 12:19 PM EDT Pt calls states is seeing Dr. Morales on next but pt is really weak and fatigued and walking has become hard legs feel like going to buckle underneath her.. She just had a bunch of blood workcompleted for Dr. Morales he told her all came back fine to reach out to her pcp. This nurse offeres an appointment to be seen. Pt states she is going to a friends for next couple days . Asked her what she is wanting done she states I took some tyl. But was not sure what else to take for this. Explained she would need to be seen for someone to check her out and see what might be going on. Pt refuses. She has not been sick states been this way a while but now much worse. documented in this encounterOhiohealth Marion [facility] Hospital05-16-2023 Miscellaneous Notes* Telephone Encounter - Jody Oconnell Ma - 09/27/2022 12:05 PM EDT All referral paperwork has been faxed over to Dr. Taylor office as requested by pt. Asked they call to schedule pt if not already done. Faxed to number below. Jody Oconnell Ma * Telephone Encounter - Angelica Corea - 09/27/2022 11:15 AM EDT Pt would like to be seen at [facility] gastro by Dr. Matt Morales. Please fax referral to number listed below. * Telephone Encounter - Sho Lechuga LPN - 09/27/2022 11:09 AM EDT Pt called in to schedule appt with gastro, she was transferred to desk representative. Sho Lechuga LPN * Telephone Encounter - Dylan Cruz MD - 09/26/2022 3:29 PM EDT OK for GI consult as ordered Dylan Cruz MD * Telephone Encounter - Emily Vazquez LPN - 09/26/2022 1:49 PM EDT Pt calls to report she has been nauseous x 2 years and it is not getting better. Pt reports she hasnever seen a generator technician and feels like she should see one. Pt is asking pcp to refer her toa gastrenterologist. Pt would like to stay with [facility] but does not want to go out of [place]. Emily Vazquez LPN documented in this encounterOhiohealth Marion [facility] Hospital05-12-2023 Miscellaneous Notes* Telephone Encounter - Jody Oconnell Ma - 09/23/2022 5:01 PM EDT Call to pt and notified her of message below pt verbalized understanding. Notified pt to check withher insurance to see who's covered in regards to Counseling. Pt understood. Jody Oconnell Ma * Telephone Encounter - Dylan Cruz MD - 09/23/2022 4:55 PM EDT 11/14 is fine for her next follow up Dylan Cruz MD * Telephone Encounter - Nadia Valenzuela - 09/23/2022 2:49 PM EDT Spoke with patient. She's going to stay off Sinemet and see how she does. Next follow up with you not until 11/14/22. Do you want to see her before that? She is in agreement with seeing a counselor. Would like to know who you recommend? Nadia Valenzuela * Telephone Encounter - Dylan Cruz MD - 09/23/2022 2:06 PM EDT She could return to Dr Ny, or,if she is doing OK off the Sinemet, can stay off it and we can monitor how she does. Counseling may be helpful in dealing with nerves and anxiety, ti she is not wanting to take any medication for that. Dylan Cruz MD * Telephone Encounter - Kamila Mohr RN - 09/23/2022 11:18 AM EDT Patient calls to check on provider response to request below. Patient wants to let provider know that the nausea and upset stomach continues. She reports the stomach tightness is because of her nerves/stress. She reports that since stopping the sinemet she has had no changes in body movement but continues to have nausea and upset stomach. Patient asking for provider recommendation on symptoms. Discussed anxiety/nerves. Patient declines any medication for that. Kamila Mohr RN * Telephone Encounter - Joanne Brambila RN - 09/22/2022 2:05 PM EDT Patient calling and states her appt with Rosaura MAY in neurology was cancelled because pt needs to be seen at a movement clinic in [place]. Pt states that is too far for her. Pt asking PCP to advise. Thank you. * Telephone Encounter - Martine Vargas RN - 09/22/2022 10:41 AM EDT Patient calls and states that she had stopped taking carbidopa-levodopa on 09/17/2022. Patient states that she has had no side effects from stopping medication. Patient reports that she is still having nausea issues since stopping medication although patient states that it is not as bad as what it w as. Patient admits that she stresses about everything. Patient has appointment with [facility]rology on 09/28/2022. Patient states that just took 2 tylenol to help with stomach issues. Patient states that she is also going to take a drive. Please review and advise, Martine Vargas RN documented in this encounterOhiohealth Marion [facility] Hospital05-03-2023 Miscellaneous Notes* Telephone Encounter - Estefani Cameron RN - 09/14/2022 1:23 PM EDT Pt called and is notified of providers results and instructions. Pt voices understanding. Will be seeing Neurology tomorrow. Estefani Cameron RN * Telephone Encounter - Sabino Middleton MD - 09/14/2022 11:24 AM EDT Agree they should keep trying to hear from neurology. Agree with taking 2 tablets today and would remain at that dosage for at least a week before reducing further. * Telephone Encounter - Naomi Archer LPN - 09/14/2022 10:59 AM EDT Spoke with pt and information listed below given. Pt verbalizes understanding. Pt reports she is having a hard time getting a hold of neurology but will keep trying. Naomi Archer LPN * Telephone Encounter - Estefani Cameron RN - 09/14/2022 10:58 AM EDT Pt called and is notified of providers message and instructions. Pt voices understanding.Pt was told to get a hold of Dr yN her neurologist that prescribes it. She states she has tried, but not been able to get through. She states she is taking two pills today instead of 3, and tomorrow will go down to one if she can't get a hold of him. Estefani Cameron RN * Telephone Encounter - Sabino Middleton MD - 09/14/2022 9:56 AM EDT Looks like Dr. Cruz recommended cutting down on sinemet or holding to see if improved and wanted patient to check with neurology about this.\ - If medications are making ill, may try cutting down or holding to see if improved. Can check withNeuro * Telephone Encounter - Naomi Archer LPN - 09/14/2022 8:23 AM EDT Pt called and was seen yesterday 09-13-[address] Cruz. Pt was told to hold the Sinemet. Pt asking if okay to just stop it or does she have to wean down off it. Please advise pt. Provider/team is unavailable routing message to environmental services worker. Naomi Archer LPN documented in this encounterOhiohealth Marion [facility] Hospital05-02-2023 Miscellaneous Notes* Telephone Encounter - Jody Oconnell Ma - 09/13/2022 5:28 PM EDT Called and left message on patients voicemail to return call to the office and ask to speak with a triage nurse. Update pt on message below from pt. Jody Oconnell Ma * Telephone Encounter - Dylan Cruz MD - 09/13/2022 5:22 PM EDT Yes, she may cancel her appt with Dr Ny, and wait and see what the [facility] Neurologist says. Dylan Cruz MD * Telephone Encounter - Jody Oconnell Ma - 09/13/2022 3:24 PM EDT See message below and advise. Jody Oconnell Ma * Telephone Encounter - ROSS Cruz - 09/13/2022 2:54 PM EDT Patient has an appointment with Dr. Ny this , she is wondering if she should cancel itsince she will be seeing Dr. Macias's team. Please review and advise. ROSS Cruz September 13, 2022 2:55 PM documented in this encounterOhiohealth Marion [facility] Hospital05-02-2023 NoteHNO ID: [id number] Author: Dylan Cruz MD Service: ? Author Type: Physician Type: Progress Notes Filed: 09/13/2022 5:43 PM Note Text: Chief Complaint Patient presents with: Dizziness HPI Yuliya Hernandez is a 82 year old female who presents here today for an acute visit. Pt scheduled today for an acute visit to discuss dizziness. Has brought an outline of what she would like to discuss during today's visit. She has multiple concerns. Main concern: Dizziness. Pt called into the office on 09/09/22 with c/o of dizziness/lightheadedness x 2 days, stating it started . She was trying to go to the grocery store but was not able to get out of the car due to feeling like she was going to fall over. Pt felt this is related to her medication, but unsure. Notes she did check her BP during this incident and states it was high in the 150's. Due to being really scared she called her neighbors who came and sat with her for an hour. She did have improvement while they were there. Pt wonder if Tylenol would help her dizziness. Pt was advised by this office she would need to make an appt to determine cause. She was advised it was ok to use Tylenol and increase her fluid intake. Pt was called back and scheduled multiple times for this week. She also has an appt with Dr. Ny her neurologist. Pt has chronic issues of dizziness, lightheadedness and balance issues. GI - Continued abdominal pain, bloating and feeling sick/nauseas intermittently. Pt feels her GI upset is related to her medications, mainly the Sinemet. Meds - Wants to discuss medications she takes. Asking about Magnesium supplement and new supplement her sister gave her called [employer]. Labs - Interested in having CRP, inflammation testing done. Neuro - Follows with Neurology, Dr. Ny. Does not feel she has Parkinson's due to not shaking. Also notes that the medication upsets her stomach. Since receiving her Dx of Parkinson's feels quality of life has decreased. Having balance issues and falling. Takes Sinemet TID. Pt states that her balance and falling is unchanged despite the medication she's taking. Doesn't really feel any better either. Does receive B12 shots through their office. Using a quad cane to ambulate. Per recent Neuro note medication was started in 2019 for right hand tremor and pt noted this has improved. Previous OV notes state that medication was helping her gait and balance. HTN - Monitoring BP two times per week in the am/pm. On current regimen of Lisinopril 20 mg 0.5 tab daily and Norvasc 5 mg 0.5 tab daily. Thyroid - Stable on current regimen of Levoxyl 50 mcg once daily. Wants to have labs checked. Past medical history, appointments, medications, allergies reviewed. Previous Medical History PAST MEDICAL HISTORY Diagnosis Date Abdominal pain, right lower quadrant stress related Abnormal stress test Back fracture 2006 caused by accident, lumbar facet CAD (coronary artery disease) Chest pain Chest pain, unspecified 10/29/01 admitted [facility] CP: Mi ruled out; Persantine stress echo WNL. Dx: esophagitis CHF (congestive heart failure) (HCC) Chronic systolic (congestive) heart failure (HCC) DDD (degenerative disc disease) Diaphragmatic hernia without mention of obstruction or gangrene 12/14 Hiatal hernia per EGD Dyspnea Esophagitis 12/14 per EGD Essential hypertension, benign Fatigue Fibromyalgia Hyperlipidemia diet controlled Hyperlipidemia NSTEMI (non-ST elevated myocardial infarction) ([facility]) Osteopenia 10/17 Other anxiety states Other specified anemias 12/14 PAC (premature atrial contraction) Pacemaker Paroxysmal atrial tachycardia ([facility]) PM - PAST MEDICAL HISTORY OF post trama in left knee Sinus bradycardia SVT (supraventricular tachycardia) ([facility]) Tachycardia Takotsubo cardiomyopathy Unspecified hemorrhoids without mention of complication 12/14 Hemorrhoids, scattered diverticula per colonoscopy Previous Surgical History PAST SURGICAL HISTORY Procedure Laterality Date APPENDECTOMY ARTHRP KNE CONDYLEANDPLATU MEDIALANDLAT COMPARTMENTS Left 2006 Knee replacement, total (left knee) CARDIAC CATH 09/15/2017 possible severe proximal LAD stenosis; FFR showed no flow limitation to indicate a significant stenosis CARDIOLITE STRESS TEST 02/27/2018 modified Fer protocol, 90% MPHR, 3 METs; no ischemia or scar; LVEF 65% DELIVERY ONLY 1974 , low transverse COLONOSCOPY FLX DX W/COLLJ SPEC WHEN PFRMD 12/26/012008 Colonoscopy: scattered diverticula, internal hemorrhoids CYSTOSCOPY,URETEROSCOPY,LITHOTRIPSY ECHOCARDIOGRAM 02/09/2018 normal LV systolic fxn LVEF 60% with apical hypokinesis; moderate LAE; 1-2+ MR; 2+ TR; 1+ AI and PI EGD 12/17/01 ESOPHAGOGASTRODUODENOSCOPY TRANSORAL DIAGNOSTIC 01/25/2010 EGD HOLTER MONITOR 24 HOUR 12/18/2017 sinus rhythm; min HR 40 bpm; max HR 117 bpm; avg HR 70 bpm; freque (more content not included)...[facility]05-02-2023 History of Present illness Narrative* Dylan Cruz MD - 09/13/2022 2:20 PM EDT Chief Complaint Patient presents with: Dizziness HPI Yuliya Hernandez is a 82 year old female who presents here today for an acute visit. Pt scheduled today for an acute visit to discuss dizziness. Has brought an outline of what she would like to discuss during today's visit. She has multiple concerns. Main concern: Dizziness. Pt called into the office on 09/09/22 with c/o of dizziness/lightheadedness x 2 days, stating it started . She was trying to go to the grocery store but was not able to get out of the car due to feeling like she was going to fall over. Pt felt this is related to her medication, but unsure. Notes she did check her BP during this incident and states it was high in the 150's. Due to being really scared she called her neighbors who came and sat with her for an hour. She did have improvement while they were there. Pt wonder if Tylenol would help her dizziness. Pt was advised by this office she would need to make an appt to determine cause. She was advised it was ok to use Tylenol and increase her fluid intake. Pt was called back and scheduled multiple times for this week. She also has an appt with Dr. Ny her neurologist. Pt has chronic issues of dizziness, lightheadedness and balance issues. GI - Continued abdominal pain, bloating and feeling sick/nauseas intermittently. Pt feels her GI upset is related to her medications, mainly the Sinemet. Meds - Wants to discuss medications she takes. Asking about Magnesium supplement and new supplementher sister gave her called [employer]. Labs - Interested in having CRP, inflammation testing done. Neuro - Follows with Neurology, Dr. Ny. Does not feel she has Parkinson's due to not shaking. Also notes that the medication upsets her stomach. Since receiving her Dx of Parkinson's feels quality of life has decreased. Having balance issues and falling. Takes Sinemet TID. Pt states that her balance and falling is unchanged despite the medication she's taking. Doesn't really feel any better either. Does receive B12 shots through their office. Using a quad cane to ambulate. Per recent Neuronote medication was started in 2019 for right hand tremor and pt noted this has improved. Previous OV notes state that medication was helping her gait and balance. HTN - Monitoring BP two times per week in the am/pm. On current regimen of Lisinopril 20 mg 0.5 tabdaily and Norvasc 5 mg 0.5 tab daily. Thyroid - Stable on current regimen of Levoxyl 50 mcg once daily. Wants to have labs checked. Past medical history, appointments, medications, allergies reviewed. Previous Medical History PAST MEDICAL HISTORY Diagnosis Date Abdominal pain, right lower quadrant stress related Abnormal stress test Back fracture 2006 caused by accident, lumbar facet CAD (coronary artery disease) Chest pain Chest pain, unspecified 10/29/01 admitted [facility] CP: Mi ruled out; Persantine stress echo WNL. Dx: esophagitis CHF (congestive heart failure) (HCC) Chronic systolic (congestive) heart failure (HCC) DDD (degenerative disc disease) Diaphragmatic hernia without mention of obstruction or gangrene 12/14 Hiatal hernia per EGD Dyspnea Esophagitis 12/14 per EGD Essential hypertension, benign Fatigue Fibromyalgia Hyperlipidemia diet controlled Hyperlipidemia NSTEMI (non-ST elevated myocardial infarction) ([facility]) Osteopenia 10/17 Other anxiety states Other specified anemias 12/14 PAC (premature atrial contraction) Pacemaker Paroxysmal atrial tachycardia ([facility]) PMH - PAST MEDICAL HISTORY OF post trama in left knee Sinus bradycardia SVT (supraventricular tachycardia) ([facility]) Tachycardia Takotsubo cardiomyopathy Unspecified hemorrhoids without mention of complication 12/14 Hemorrhoids, scattered diverticula per colonoscopy Previous Surgical History PAST SURGICAL HISTORY Procedure Laterality Date APPENDECTOMY ARTHRP KNE CONDYLE&PLATU MEDIAL&LAT COMPARTMENTS Left 2006 Knee replacement, total (left knee) CARDIAC CATH 09/15/2017 possible severe proximal LAD stenosis; FFR showed no flow limitation to indicate a significant stenosis CARDIOLITE STRESS TEST 02/27/2018 modified Fer protocol, 90% MPHR, 3 METs; no ischemia or scar; LVEF 65% DELIVERY ONLY 1974 , low transverse COLONOSCOPY FLX DX W/COLLJ SPEC WHEN PFRMD 12/26/012008 Colonoscopy: scattered diverticula, internal hemorrhoids CYSTOSCOPY,URETEROSCOPY,LITHOTRIPSY ECHOCARDIOGRAM 02/09/2018 normal LV systolic fxn LVEF 60% with apical hypokinesis; moderate LAE; 1-2+ MR; 2+ TR; 1+ AI and PI EGD 12/17/01 ESOPHAGOGASTRODUODENOSCOPY TRANSORAL DIAGNOSTIC 01/25/2010 EGD HOLTER MONITOR 24 HOUR 12/18/2017 sinus rhythm; min HR 40 bpm; max HR 117 bpm; avg HR 70 bpm; frequent PACs, atrial couplets, atrial bigeminy, and runs of paroxysmal atrial tachycardia (longest run 658 beats at 119 bpm, fastest run 121 bpm). no symptoms reported HYSTERECTOMY HX 1990s ovaries intact, menorrhagia LAPAROSCOPY SURG CHOLECYSTECTOMY Family History FAMILY HISTORY Problem Relation Age of Onset Osteoporosis Mother Diabetes Father Pancreatic Cancer Father Diabetes Son Patient Allergies ALLERGIES Allergen Reactions Celebrex [Celecoxib] Mental Status Change nightmares Oxycontin [Oxycodon* GI Upset Codeine GI Upset Current Medications Current Outpatient Medications on File Prior to Visit Medication Sig vit A/vit C/vit E/zinc/copper (PRESERVISION AREDS ORAL) Take by mouth. lisinopril (ZESTRIL, PRINIVIL) 20 mg tablet Take 0.5 tablets by mouth once daily. amLODIPine (NORVASC) 5 mg tablet Take 0.5 tablets by mouth once daily. levothyroxine (LEVOXYL) 50 mcg tablet Take 1 tablet by mouth once daily. Take on empty stomach. ForThyroid Cholecalciferol, Vitamin D3, 50 mcg (2,000 unit) cap carbidopa-levodopa (SINEMET 25-100) 25-100 mg per tablet Take 1 tablet by mouth three times daily. No current facility-administered medications on file prior to visit. Social History Social History Tobacco Use Smoking status: Never Smokeless tobacco: Never Tobacco comments: No smoking in childhood home. Spouse of 40 years ex-smoker, 16 years ago. Vaping Use Vaping Use: Never used Substance Use Topics Alcohol use: No Drug use: No EXAM: BP 136/84 (BP Site: Left Arm, BP Position: Sitting, BP Cuff Size: Regular Adult) Pulse 76 Resp 16 Wt 58.1 kg (128 lb) BMI 23.41 kg/m General Appearance: Well appearing, alert, in no acute distress, well-hydrated, well nourished. Using a cane today. Lungs: Lungs clear to auscultation. No wheezing, rhonchi, rales.. Heart: RRR without murmur, gallop, or rubs. No ectopy. Extremities: No tremor noted on exam. Health Maintenance List DTAP,TDAP,TD(1 - Tdap) due on 01/25/2003 SHINGRIX VACCINE(2 of 3) due on 04/09/2014 COVID-19 VACCINE(4 - Booster for Moderna series) due on 05/11/2021 ADVANCE DIRECTIVE DISCUSSION Never done COLOGUARD (FIT-DNA) due on 02/23/2023 DIABETES SCREEN due on 05/17/2025 BONE DENSITY Completed INFLUENZA Completed DEPRESSION ASSESSMENT Completed PNEUMOCOCCAL: 65+ Completed Data reviewed Epic ASSESSMENT/PLAN: 1. Dizziness and giddiness - ICD9: 780.4, ICD10: R42 (primary diagnosis) - Stable today, possibly related to HTN 2. Nausea - ICD9: 787.02, ICD10: R11.0 - Hold Sinemet to see if symptoms improve 3. Bloating - ICD9: 787.3, ICD10: R14.0 - Hold Sinemet to see if improved - C-REACTIVE PROTEIN (CRP) 4. Essential hypertension, benign - ICD9: 401.1, ICD10: I10 - good control - Continue current medication(s) - Recommended regular aerobic exercise. - Recommend home blood pressure monitoring, to bring results in on next visit - Goal of BP <130/80 - MAGNESIUM BLD - COMP METABOLIC PANEL 5. Acquired hypothyroidism - ICD9: 244.9, ICD10: E03.9 - Instructed patient on importance of taking on an empty stomach either first thing in the morning or at bedtime. Stable - check labs today, continue current medication - TSH BLD 6. Hyperlipidemia, unspecified hyperlipidemia type - ICD9: 272.4, ICD10: E78.5 - Check labs today - COMP METABOLIC PANEL 7. Parkinson's disease (HCC) - ICD9: 332.0, ICD10: G20 - Discussed getting second opinion. - If medications are making ill, may try cutting down or holding to see if improved. Can check withNeuro - CONSULT TO NEUROLOGY 8. Gait instability - ICD9: 781.2, ICD10: R26.81 - cont using cane 9. Anemia due to other cause, not classified - ICD9: 285.8, ICD10: D64.89 - Check labs - CBC + DIFF Complete labs today, will call with those results. Schedule second opinion with Dr. Macias. I agree with the Chief Complaint, ROS, and Past Histories independently gathered by the clinical aircraft life support fitter and the remaining scribed note accurately describes my personal service to the patient. Medical Decision Making: Problems: Moderate: 1+ chronic illnesses with change Risk: Moderate: Drug management Medical Decision Making Level: 4 - Moderate Dylan Cruz MD The documentation for this note was completed by Jody Oconnell Ma acting as scribe for Dylan Cruz MD. September 13, 2022 2:38 PM. Jody Oconnell Ma documented in this encounter[facility] History of Past illness Narrative* Problem Noted Date Diagnosed Date Resolved Date Chronic kidney disease, stage 3a 09/13/2022 01/05/2023 Otitis media 07/02/2010 11/11/2021 Anemia, unspecified 01/25/2010 07/02/19 11 Chest pain, unspecified 12/16/200810/15 Acute upper respiratory infe ctions of unspecified site 02/10/2007 02/23/2009 Other conjunctivitis 02/10/2007 009 Esophagitis 11/13/2008 Hernia of other specified [place] of abdominal cavity without mention of obstruction or gangrene 11/11/2021 Essential hypertension, benign 11/13/2008 Abdominal pain, right lower quadrant 11/11/2021 documented as of this encounter (statuses as of 03/15/2023) [facility]05-02[facility] History of Past illness Narrative* Problem Noted Date Diagnosed Date Resolved Date Chronic kidney disease, stage 3a 09/13/2022 01/05/2023 Otitis media 07/02/2010 11/11/2021 Anemia, unspecified 01/25/2010 07/02/19 11 Chest pain, unspecified 12/16/200810/15 Acute upper respiratory infe ctions of unspecified site 02/10/2007 02/23/2009 Other conjunctivitis 02/10/2007 009 Esophagitis 11/13/2008 Hernia of other specified [place] of abdominal cavity without mention of obstruction or gangrene 11/11/2021 Essential hypertension, benign 11/13/2008 Abdominal pain, right lower quadrant 11/11/2021 documented as of this encounter (statuses as of 04/21/2023) [facility] History of Past illness Narrative* Problem Noted Date Diagnosed Date Resolved Date Chronic kidney disease, stage 3a 09/13/2022 01/05/2023 Otitis media 07/02/2010 11/11/2021 Anemia, unspecified 01/25/2010 07/02/19 11 Chest pain, unspecified 12/16/200810/15 Acute upper respiratory infe ctions of unspecified site 02/10/2007 02/23/2009 Other conjunctivitis 02/10/2007 009 Esophagitis 11/13/2008 Hernia of other specified [place] of abdominal cavity without mention of obstruction or gangrene 11/11/2021 Essential hypertension, benign 11/13/2008 Abdominal pain, right lower quadrant 11/11/2021 documented as of this encounter (statuses as of 04/25/2023) [facility]04-28-[facility] Miscellaneous Notes* Telephone Encounter - Rebekah Lemos Ma - 09/09/2022 3:25 PM EDT Pt notified. She is scheduled to see Enrrique Reaves 09/16/22. Advised if sx worsen to call back or go toER. She has appt next week with Dr. Ny, Neurologist. Rebeakh Lemos Ma * Telephone Encounter - Dylan Cruz MD - 09/09/2022 3:15 PM EDT She would need to be seen to try and determine why she is lightheaded. It is OK to try tylenol to see if this helps; drinking plenty of fluids may help also. Dyaln Cruz MD * Telephone Encounter - Radha Tafoya LPN - 09/09/2022 1:58 PM EDT Patient calling, states that she has been lightheaded for 2 days. She was trying to go to the grocery store but was not able to get out of the car she felt like she would fall over. States she thinksit is her medicine but does not know. Asking if a tylenol would help. Please advise. documented in this encounterOhio[facility]04-10-2023 Miscellaneous Notes* Telephone Encounter - Rebekah Lemos Ma - 08/22/2022 8:17 AM EDT Notified via [facility]. Rebekah Lemos Ma * Telephone Encounter - Rebekah Lemos Ma - 08/18/2022 4:18 PM EDT Message left for pt to call back. Rebekah Lemos Ma * Telephone Encounter - Dylan Cruz MD - 08/18/2022 4:16 PM EDT That should be OK to take Dylan Cruz MD * Telephone Encounter - Sho Lechuga LPN - 08/18/2022 12:43 PM EDT Pt is asking if a supplement called [email or web address] would be OK for her to take? It is for gut health & the ingredients are PepZinGI, L-glutamine, gregory extract & Vit D. Pharmacy told pt it should be safe for her to take but to check with her pcp. Sho Lechuga LPN documented in this encounterOhio[facility]03-27-2023 NoteHNO ID: [id number] Author: Cristin Mcdaniels APRN.VIAL GAUGER Service: ? Author Type: Nurse Practitioner Type: Progress Notes Filed: 08/08/2022 11:39 AM Note Text: Chief Complaint Patient presents with: Fall HPI Yuliya Hernandez is a 82 year old female who presents here today for Above Complaints.. Patient presents following a fall on 08/08/2022. Patient reports that she got up in the middle of the night to go to the bathroom and went to grab the wall and missed the wall and fell in her tub. Patient states she hit her left arm on the shower door and hit her head on the shower. Denies headaches, dizziness, confusion, blurred vision, vomiting, nausea, arm pain, leg pain, difficulty walking. Past medical history, appointments, medications, allergies reviewed. Previous Medical History PAST MEDICAL HISTORY Diagnosis Date Abdominal pain, right lower quadrant stress related Abnormal stress test Back fracture 2006 caused by accident, lumbar facet CAD (coronary artery disease) Chest pain Chest pain, unspecified 10/29/01 admitted [facility] CP: Mi ruled out; Persantine stress echo WNL. Dx: esophagitis CHF (congestive heart failure) ([facility]) Chronic systolic (congestive) heart failure ([facility]) DDD (degenerative disc disease) Diaphragmatic hernia without mention of obstruction or gangrene 12/14 Hiatal hernia per EGD Dyspnea Esophagitis 12/14 per EGD Essential hypertension, benign Fatigue Fibromyalgia Hyperlipidemia diet controlled Hyperlipidemia NSTEMI (non-ST elevated myocardial infarction) ([facility]) Osteopenia 10/17 Other anxiety states Other specified anemias 12/14 PAC (premature atrial contraction) Pacemaker Paroxysmal atrial tachycardia ([facility]) PMH - PAST MEDICAL HISTORY OF post trama in left knee Sinus bradycardia SVT (supraventricular tachycardia) ([facility]) Tachycardia Takotsubo cardiomyopathy Unspecified hemorrhoids without mention of complication 12/14 Hemorrhoids, scattered diverticula per colonoscopy Previous Surgical History PAST SURGICAL HISTORY Procedure Laterality Date APPENDECTOMY ARTHRP KNE CONDYLEANDPLATU MEDIALANDLAT COMPARTMENTS Left 2006 Knee replacement, total (left knee) CARDIAC CATH 09/15/2017 possible severe proximal LAD stenosis; FFR showed no flow limitation to indicate a significant stenosis CARDIOLITE STRESS TEST 02/27/2018 modified Fer protocol, 90% MPHR, 3 METs; no ischemia or scar; LVEF 65% DELIVERY ONLY 1974 , low transverse COLONOSCOPY FLX DX W/COLLJ SPEC WHEN PFRMD 12/26/012008 Colonoscopy: scattered diverticula, internal hemorrhoids CYSTOSCOPY,URETEROSCOPY,LITHOTRIPSY ECHOCARDIOGRAM 02/09/2018 normal LV systolic fxn LVEF 60% with apical hypokinesis; moderate LAE; 1-2+ MR; 2+ TR; 1+ AI and PI EGD 12/17/01 ESOPHAGOGASTRODUODENOSCOPY TRANSORAL DIAGNOSTIC 01/25/2010 EGD HOLTER MONITOR 24 HOUR 12/18/2017 sinus rhythm; min HR 40 bpm; max HR 117 bpm; avg HR 70 bpm; frequent PACs, atrial couplets, atrial bigeminy, and runs of paroxysmal atrial tachycardia (longest run 658 beats at 119 bpm, fastest run 121 bpm). no symptoms reported HYSTERECTOMY HX 1990s ovaries intact, menorrhagia LAPAROSCOPY SURG CHOLECYSTECTOMY Family History FAMILY HISTORY Problem Relation Age of Onset Osteoporosis Mother Diabetes Father Pancreatic Cancer Father Diabetes Son Patient Allergies ALLERGIES Allergen Reactions Celebrex [Celecoxib] Mental Status Change nightmares Oxycontin [Oxycodon* GI Upset Codeine GI Upset Current Medications Current Outpatient Medications on File Prior to Visit Medication Sig vit A/vit C/vit E/zinc/copper (PRESERVISION AREDS ORAL) Take by mouth. lisinopril (ZESTRIL, PRINIVIL) 20 mg tablet Take 0.5 tablets by mouth once daily. amLODIPine (NORVASC) 5 mg tablet Take 0.5 tablets by mouth once daily. levothyroxine (LEVOXYL) 50 mcg tablet Take 1 tablet by mouth once daily. Take on empty stomach. For Thyroid Cholecalciferol, Vitamin D3, 50 mcg (2,000 unit) cap carbidopa-levodopa (SINEMET 25-100) 25-100 mg per tablet Take 1 tablet by mouth three times daily. No current facility-administered medications on file prior to visit. Social History Social History Tobacco Use Smoking status: Never Smokeless tobacco: Never Tobacco comments: No smoking in childhood home. Spouse of 40 years ex-smoker, 16 years ago. Vaping Use Vaping Use: Never used Substance Use Topics Alcohol use: No Drug use: No Review of Symptoms REVIEW OF SYSTEMS SEE HPI EXAM: BP 128/70 Pulse 110 Resp 14 Wt 58.5 kg (129 lb) BMI 23.59 kg/m? General Appearance: Well appearing, alert, in no acute distress, well-hydrated, well nourished.. Skin: Positives: Ecchymosis: arms and upper legs, skin tear to left arm, scabbed, no redness, warmth, discharge. Extremities: Positive findings: joint location: bilaterally knee swelling and ecchymosis . [facility] (more content not included)...[facility]03-27-2023 Instructions* Patient Instructions* Cristin Mcdaniels APRN.CNP - 08/08/2022 11:38 AM EDT Go to ER if recurrent fall or if symptoms develop including headache, nausea/vomiting, blurred vision, headache, dizziness. documented in this encounterOhio[facility]03-27-2023 History of Present illness Narrative* Cristin Mcdaniels APRN.CNP - 08/08/2022 11:25 AM EDT Chief Complaint Patient presents with: Fall HPI Yuliya Hernandez is a 82 year old female who presents here today for Above Complaints.. Patient presents following a fall on 08/08/2022. Patient reports that she got up in the middle of the night to go to the bathroom and went to grab the wall and missed the wall and fell in hertub. Patient states she hit her left arm on the shower door and hit her head on the shower. Denies headaches, dizziness, confusion, blurred vision, vomiting, nausea, arm pain, leg pain, difficulty walking. Past medical history, appointments, medications, allergies reviewed. Previous Medical History PAST MEDICAL HISTORY Diagnosis Date Abdominal pain, right lower quadrant stress related Abnormal stress test Back fracture 2006 caused by accident, lumbar facet CAD (coronary artery disease) Chest pain Chest pain, unspecified 10/29/01 admitted [facility] CP: Mi ruled out; Persantine stress echo WNL. Dx: esophagitis CHF (congestive heart failure) (HCC) Chronic systolic (congestive) heart failure (HCC) DDD (degenerative disc disease) Diaphragmatic hernia without mention of obstruction or gangrene 12/14 Hiatal hernia per EGD Dyspnea Esophagitis 12/14 per EGD Essential hypertension, benign Fatigue Fibromyalgia Hyperlipidemia diet controlled Hyperlipidemia NSTEMI (non-ST elevated myocardial infarction) (HCC) Osteopenia 10/17 Other anxiety states Other specified anemias 12/14 PAC (premature atrial contraction) Pacemaker Paroxysmal atrial tachycardia (HCC) PMH - PAST MEDICAL HISTORY OF post trama in left knee Sinus bradycardia SVT (supraventricular tachycardia) (HCC) Tachycardia Takotsubo cardiomyopathy Unspecified hemorrhoids without mention of complication 12/14 Hemorrhoids, scattered diverticula per colonoscopy Previous Surgical History PAST SURGICAL HISTORY Procedure Laterality Date APPENDECTOMY 1950s ARTHRP KNE CONDYLE&PLATU MEDIAL&LAT COMPARTMENTS Left 2007 Knee replacement, total (left knee) CARDIAC CATH 09/15/2017 possible severe proximal LAD stenosis; FFR showed no flow limitation to indicate a significant stenosis CARDIOLITE STRESS TEST 02/27/2018 modified Fer protocol, 90% MPHR, 3 METs; no ischemia or scar; LVEF 65% DELIVERY ONLY 1966, 1974 , low transverse COLONOSCOPY FLX DX W/COLLJ SPEC WHEN PFRMD 12/26/012008 Colonoscopy: scattered diverticula, internal hemorrhoids CYSTOSCOPY,URETEROSCOPY,LITHOTRIPSY ECHOCARDIOGRAM 02/09/2018 normal LV systolic fxn LVEF 60% with apical hypokinesis; moderate LAE; 1-2+ MR; 2+ TR; 1+ AI and PI EGD 12/17/01 ESOPHAGOGASTRODUODENOSCOPY TRANSORAL DIAGNOSTIC 01/25/2010 EGD HOLTER MONITOR 24 HOUR 12/18/2017 sinus rhythm; min HR 40 bpm; max HR 117 bpm; avg HR 70 bpm; frequent PACs, atrial couplets, atrial bigeminy, and runs of paroxysmal atrial tachycardia (longest run 658 beats at 119 bpm, fastest run 121 bpm). no symptoms reported HYSTERECTOMY HX 1990s ovaries intact, menorrhagia LAPAROSCOPY SURG CHOLECYSTECTOMY Family History FAMILY HISTORY Problem Relation Age of Onset Osteoporosis Mother Diabetes Father Pancreatic Cancer Father Diabetes Son Patient Allergies ALLERGIES Allergen Reactions Celebrex [Celecoxib] Mental Status Change nightmares Oxycontin [Oxycodon* GI Upset Codeine GI Upset Current Medications Current Outpatient Medications on File Prior to Visit Medication Sig vit A/vit C/vit E/zinc/copper (PRESERVISION AREDS ORAL) Take by mouth. lisinopril (ZESTRIL, PRINIVIL) 20 mg tablet Take 0.5 tablets by mouth once daily. amLODIPine (NORVASC) 5 mg tablet Take 0.5 tablets by mouth once daily. levothyroxine (LEVOXYL) 50 mcg tablet Take 1 tablet by mouth once daily. Take on empty stomach. ForThyroid Cholecalciferol, Vitamin D3, 50 mcg (2,000 unit) cap carbidopa-levodopa (SINEMET 25-100) 25-100 mg per tablet Take 1 tablet by mouth three times daily. No current facility-administered medications on file prior to visit. Social History Social History Tobacco Use Smoking status: Never Smokeless tobacco: Never Tobacco comments: No smoking in childhood home. Spouse of 40 years ex-smoker, 16 years ago. Vaping Use Vaping Use: Never used Substance Use Topics Alcohol use: No Drug use: No Review of Symptoms REVIEW OF SYSTEMS SEE HPI EXAM: BP 128/70 Pulse 110 Resp 14 Wt 58.5 kg (129 lb) BMI 23.59 kg/m General Appearance: Well appearing, alert, in no acute distress, well-hydrated, well nourished.. Skin: Positives: Ecchymosis: arms and upper legs, skin tear to left arm, scabbed, no redness, warmth, discharge. Extremities: Positive findings: joint location: bilaterally knee swelling and ecchymosis . Health Maintenance List DTAP,TDAP,TD(1 - Tdap) due on 01/25/2003 SHINGRIX VACCINE(2 of 3) due on 04/09/2014 COVID-19 VACCINE(4 - Booster for Moderna series) due on 05/11/2021 ADVANCE DIRECTIVE DISCUSSION Never done COLOGUARD (FIT-DNA) due on 02/23/2023 DIABETES SCREEN due on 05/17/2025 BONE DENSITY Completed INFLUENZA Completed DEPRESSION ASSESSMENT Completed PNEUMOCOCCAL: 65+ Completed ASSESSMENT/PLAN: 1. Fall as cause of accidental injury in home as place of occurrence, initial encounter - ICD9: E888.9, E849.0, ICD10: W19.XXXA, Y92.009 -Continue tylenol for ache/pain to arm and leg. Discussed with patient concerning symptoms to watch out for regarding head injury however patient is 5 days out from injury and has no symptoms at this time. Patient has some bruising to right arm and bilateral legs but is walking well with no pain. Cristin Mcdaniels APRN.JAVI documented in this encounterOhio[facility]03-24-2023 NoteHNO ID: [id number] Author: Dylan Cruz MD Service: ? Author Type: Physician Type: Progress Notes Filed: 08/05/2022 11:47 AM Note Text: Chief Complaint Patient presents with: Diarrhea HPI Yuliya Hernandez is a 82 year old female who presents here today for a same day visit. Pt scheduled today for a same day acute visit. Pt c/o of diarrhea and her stomach bothering her. Pt has chronic GI issues. Pt states she had 1 episode of diarrhea 2 days ago and no BM since. She has nausea but no vomiting. She has been drinking gregory mayte. Appetite has not been well. She had headache last night which improved with tylenol. She isn't sure if the diarrhea is due to her medications or if she had food poisoning. She ate a vegetable wrap with spinach and became sick. Never started Protonix for her stomach. Her stomach was upset before she had the bout of diarrhea. Pt didn't want to go into the weekend feeling ill. Takes Norvasc, Lisinopril, and Synthroid. Also takes Multivitamin and Vit D, also taking Preservision. Follows with Dr. Ny, Neuro with [place]. She is taking Sinemet tid. Past medical history, appointments, medications, allergies reviewed. Previous Medical History PAST MEDICAL HISTORY Diagnosis Date Abdominal pain, right lower quadrant stress related Abnormal stress test Back fracture 2006 caused by accident, lumbar facet CAD (coronary artery disease) Chest pain Chest pain, unspecified 10/29/01 admitted [facility] CP: Mi ruled out; Persantine stress echo WNL. Dx: esophagitis CHF (congestive heart failure) (HCC) Chronic systolic (congestive) heart failure (HCC) DDD (degenerative disc disease) Diaphragmatic hernia without mention of obstruction or gangrene 12/14 Hiatal hernia per EGD Dyspnea Esophagitis 12/14 per EGD Essential hypertension, benign Fatigue Fibromyalgia Hyperlipidemia diet controlled Hyperlipidemia NSTEMI (non-ST elevated myocardial infarction) ([facility]) Osteopenia 10/17 Other anxiety states Other specified anemias 12/14 PAC (premature atrial contraction) Pacemaker Paroxysmal atrial tachycardia ([facility]) PMH - PAST MEDICAL HISTORY OF post trama in left knee Sinus bradycardia SVT (supraventricular tachycardia) ([facility]) Tachycardia Takotsubo cardiomyopathy Unspecified hemorrhoids without mention of complication 12/14 Hemorrhoids, scattered diverticula per colonoscopy Previous Surgical History PAST SURGICAL HISTORY Procedure Laterality Date APPENDECTOMY ARTHRP KNE CONDYLEANDPLATU MEDIALANDLAT COMPARTMENTS Left 2007 Knee replacement, total (left knee) CARDIAC CATH 09/15/2017 possible severe proximal LAD stenosis; FFR showed no flow limitation to indicate a significant stenosis CARDIOLITE STRESS TEST 02/27/2018 modified Fer protocol, 90% MPHR, 3 METs; no ischemia or scar; LVEF 65% DELIVERY ONLY 1974 , low transverse COLONOSCOPY FLX DX W/COLLJ SPEC WHEN PFRMD 12/26/012008 Colonoscopy: scattered diverticula, internal hemorrhoids CYSTOSCOPY,URETEROSCOPY,LITHOTRIPSY ECHOCARDIOGRAM 02/09/2018 normal LV systolic fxn LVEF 60% with apical hypokinesis; moderate LAE; 1-2+ MR; 2+ TR; 1+ AI and PI EGD 12/17/01 ESOPHAGOGASTRODUODENOSCOPY TRANSORAL DIAGNOSTIC 01/25/2010 EGD HOLTER MONITOR 24 HOUR 12/18/2017 sinus rhythm; min HR 40 bpm; max HR 117 bpm; avg HR 70 bpm; frequent PACs, atrial couplets, atrial bigeminy, and runs of paroxysmal atrial tachycardia (longest run 658 beats at 119 bpm, fastest run 121 bpm). no symptoms reported HYSTERECTOMY HX 1990s ovaries intact, menorrhagia LAPAROSCOPY SURG CHOLECYSTECTOMY Family History FAMILY HISTORY Problem Relation Age of Onset Osteoporosis Mother Diabetes Father Pancreatic Cancer Father Diabetes Son Patient Allergies ALLERGIES Allergen Reactions Celebrex [Celecoxib] Mental Status Change nightmares Oxycontin [Oxycodon* GI Upset Codeine GI Upset Current Medications Current Outpatient Medications on File Prior to Visit Medication Sig vit A/vit C/vit E/zinc/copper (PRESERVISION AREDS ORAL) Take by mouth. lisinopril (ZESTRIL, PRINIVIL) 20 mg tablet Take 0.5 tablets by mouth once daily. amLODIPine (NORVASC) 5 mg tablet Take 0.5 tablets by mouth once daily. pantoprazole DR (PROTONIX) 20 mg tablet Take 1 tablet by mouth daily before breakfast. Take on empty stomach, 1/2 hr before meal. levothyroxine (LEVOXYL) 50 mcg tablet Take 1 tablet by mouth once daily. Take on empty stomach. For Thyroid Cholecalciferol, Vitamin D3, 50 mcg (2,000 unit) cap carbidopa-levodopa (SINEMET 25-100) 25-100 mg per tablet Take 1 tablet by mouth three times daily. No current facility-administered medications on file prior to visit. Social History Social History Tobacco Use Smoking status: Never Smokeless tobacco: Never Tobacco comments: No smoking in childhood home. Spouse of 40 years ex-smoker, 16 years ago. Vapi (more content not included)...[facility]03-24-2023 Instructions* Patient Instructions* Dylan Cruz MD - 08/05/2022 11:38 AM EDT Take Synthroid first thing in the morning Take the Parkinson's medication as you are Take the Lisinopril and Norvasc in the evening Eat whatever you feel hungry for as able. See if the stomach improves with changing the way you take you medications. documented in this encounter[facility] History of Present illness Narrative* Dylan Cruz MD - 08/05/2022 11:20 AM EDT Chief Complaint Patient presents with: Diarrhea HPI Yuliya Hernandez is a 82 year old female who presents here today for a same day visit. Pt scheduled today for a same day acute visit. Pt c/o of diarrhea and her stomach bothering her. Pt has chronic GI issues. Pt states she had 1 episode of diarrhea 2 days ago and no BM since. She has nausea but no vomiting. She has been drinking gregory mayte. Appetite has not been well. She had headache last night which improved with tylenol. She isn't sure if the diarrhea is due to her medications or if she had food poisoning. She ate a vegetable wrap with spinach and became sick. Never started Protonix for her stomach. Her stomach was upset before she had the bout of diarrhea. Pt didn't want to go into the weekend feeling ill. Takes Norvasc, Lisinopril, and Synthroid. Also takes Multivitamin and Vit D, also taking Preservision. Follows with Dr. Ny, Neuro with [facility]. She is taking Sinemet tid. Past medical history, appointments, medications, allergies reviewed. Previous Medical History PAST MEDICAL HISTORY Diagnosis Date Abdominal pain, right lower quadrant stress related Abnormal stress test Back fracture 2006 caused by accident, lumbar facet CAD (coronary artery disease) Chest pain Chest pain, unspecified 10/29/01 admitted [facility] CP: Mi ruled out; Persantine stress echo WNL. Dx: esophagitis CHF (congestive heart failure) (HCC) Chronic systolic (congestive) heart failure (HCC) DDD (degenerative disc disease) Diaphragmatic hernia without mention of obstruction or gangrene 12/14 Hiatal hernia per EGD Dyspnea Esophagitis 12/14 per EGD Essential hypertension, benign Fatigue Fibromyalgia Hyperlipidemia diet controlled Hyperlipidemia NSTEMI (non-ST elevated myocardial infarction) (HCC) Osteopenia 10/17 Other anxiety states Other specified anemias 12/14 PAC (premature atrial contraction) Pacemaker Paroxysmal atrial tachycardia (HCC) PMH - PAST MEDICAL HISTORY OF post trama in left knee Sinus bradycardia SVT (supraventricular tachycardia) (HCC) Tachycardia Takotsubo cardiomyopathy Unspecified hemorrhoids without mention of complication 12/14 Hemorrhoids, scattered diverticula per colonoscopy Previous Surgical History PAST SURGICAL HISTORY Procedure Laterality Date APPENDECTOMY ARTHRP KNE CONDYLE&PLATU MEDIAL&LAT COMPARTMENTS Left 2007 Knee replacement, total (left knee) CARDIAC CATH 09/15/2017 possible severe proximal LAD stenosis; FFR showed no flow limitation to indicate a significant stenosis CARDIOLITE STRESS TEST 02/27/2018 modified Fer protocol, 90% MPHR, 3 METs; no ischemia or scar; LVEF 65% DELIVERY ONLY 1974 , low transverse COLONOSCOPY FLX DX W/COLLJ SPEC WHEN PFRMD 12/26/012008 Colonoscopy: scattered diverticula, internal hemorrhoids CYSTOSCOPY,URETEROSCOPY,LITHOTRIPSY ECHOCARDIOGRAM 02/09/2018 normal LV systolic fxn LVEF 60% with apical hypokinesis; moderate LAE; 1-2+ MR; 2+ TR; 1+ AI and PI EGD 12/17/01 ESOPHAGOGASTRODUODENOSCOPY TRANSORAL DIAGNOSTIC 01/25/2010 EGD HOLTER MONITOR 24 HOUR 12/18/2017 sinus rhythm; min HR 40 bpm; max HR 117 bpm; avg HR 70 bpm; frequent PACs, atrial couplets, atrial bigeminy, and runs of paroxysmal atrial tachycardia (longest run 658 beats at 119 bpm, fastest run 121 bpm). no symptoms reported HYSTERECTOMY HX ovaries intact, menorrhagia LAPAROSCOPY SURG CHOLECYSTECTOMY Family History FAMILY HISTORY Problem Relation Age of Onset Osteoporosis Mother Diabetes Father Pancreatic Cancer Father Diabetes Son Patient Allergies ALLERGIES Allergen Reactions Celebrex [Celecoxib] Mental Status Change nightmares Oxycontin [Oxycodon* GI Upset Codeine GI Upset Current Medications Current Outpatient Medications on File Prior to Visit Medication Sig vit A/vit C/vit E/zinc/copper (PRESERVISION AREDS ORAL) Take by mouth. lisinopril (ZESTRIL, PRINIVIL) 20 mg tablet Take 0.5 tablets by mouth once daily. amLODIPine (NORVASC) 5 mg tablet Take 0.5 tablets by mouth once daily. pantoprazole DR (PROTONIX) 20 mg tablet Take 1 tablet by mouth daily before breakfast. Take on empty stomach, 1/2 hr before meal. levothyroxine (LEVOXYL) 50 mcg tablet Take 1 tablet by mouth once daily. Take on empty stomach. ForThyroid Cholecalciferol, Vitamin D3, 50 mcg (2,000 unit) cap carbidopa-levodopa (SINEMET 25-100) 25-100 mg per tablet Take 1 tablet by mouth three times daily. No current facility-administered medications on file prior to visit. Social History Social History Tobacco Use Smoking status: Never Smokeless tobacco: Never Tobacco comments: No smoking in childhood home. Spouse of 40 years ex-smoker, 16 years ago. Vaping Use Vaping Use: Never used Substance Use Topics Alcohol use: No Drug use: No EXAM: BP 120/80 Pulse 78 Resp 16 Wt 58.9 kg (129 lb 14.4 oz) BMI 23.76 kg/m General Appearance: Well appearing, alert, in no acute distress, well-hydrated, well nourished.. Lungs: Lungs clear to auscultation. No wheezing, rhonchi, rales.. Heart: RRR without murmur, gallop, or rubs. No ectopy. Abdomen: Normal abdominal exam, says she gets discomfort in mid epigastric area Health Maintenance List DTAP,TDAP,TD(1 - Tdap) due on 01/25/2003 SHINGRIX VACCINE(2 of 3) due on 04/09/2014 COVID-19 VACCINE(4 - Booster for Moderna series) due on 05/11/2021 ADVANCE DIRECTIVE DISCUSSION Never done COLOGUARD (FIT-DNA) due on 02/23/2023 DIABETES SCREEN due on 05/17/2025 BONE DENSITY Completed INFLUENZA Completed DEPRESSION ASSESSMENT Completed PNEUMOCOCCAL: 65+ Completed Data reviewed None ASSESSMENT/PLAN: 1. Diarrhea, unspecified type - ICD9: 787.91, ICD10: R19.7 (primary diagnosis) Continue to monitor Eat BRAT diet, increase food intake as able Stay hydrated 2. Nausea - ICD9: 787.02, ICD10: R11.0 Continue to monitor Eat BRAT diet, increase food intake as able Stay hydrated Declined Pepcid, wants to try changing when she takes her medications Follow up in November as scheduled. I agree with the Chief Complaint, ROS, and Past Histories independently gathered by the clinical aircraft life support fitter and the remaining scribed note accurately describes my personal service to the patient. Medical Decision Making: Problems: Low: Acute, uncomplicated illness or injury Risk: Moderate: Drug management Medical Decision Making Level: 3 - Low Dylan Cruz MD The documentation for this note was completed by Rebekah Lemos Ma acting as scribe for Dylan Cruz MD. August 05, 2022 11:21 AM. Rebekah Lemos Ma documented in this encounterOhio[facility]02-23-2023 Miscellaneous Notes* Telephone Encounter - Kamila Mohr RN - 07/07/2022 10:06 AM EST Patient calls to request most recent lab results be faxed to Dr. Ny with [facility]. Most recent labs done 05/17/2022 (CBC, CMP, TSH, and Vit B- 12). Faxed to [phone] per patient request. Kamila Mohr RN documented in this [facility]01-31-2023 Miscellaneous Notes* Telephone Encounter - Naomi Archer LPN - 06/14/2022 10:16 AM EST Pt called back and the ringging in her ears is persisting. Faxed referral and support information to [facility]. FAX: [phone]. Naomi Archer LPN documented in this encounterOhio[facility]01-30-2023 NoteHNO ID: [id number] Author: Dylan Cruz MD Service: ? Author Type: Physician Type: Progress Notes Filed: 06/13/2022 2:38 PM Note Text: Chief Complaint Patient presents with: ER F/U HPI Yuliya Hernandez is a 82 year old female who presents here today for ER Follow Up. Pt was at [facility] ER on 06/09/22 for vertigo. States her symptoms started on 06/09/22 with c/o of feeling faint, weak upon standing, dizziness and feel sick to her stomach/nauseated. Started when she woke up and turned over in bed. Pt did have some difficulty ambulating. Her Niece came over and pt called into office and spoke with the Triage Nurse who recommended she go to local ED due to the symptoms she was experiencing. Pt was taken into ED; diagnosed with vertigo. She was given #10 valium, but pt states that she never picked these up, she received one in the hospital. When she left she felt better from the Hospital and the ringing in her ears quit. Pt called into the office on 06/10/22 with vertigo symptoms, ringing in her ears, bloated and nauseated after turning over in bed at 3:00 am. She called her neighbors due to continued dizziness from vertigo and took her over to their house. Her neighbor has vertigo as well, so she was able to help her. Pt states that she is doing much better since going to ED. She is no longer feeling like she did prior to going in. States that her eyes are a little fuzzy, but this is typical for her due to her cataracts. She is scheduled to have cataract surgery this week, . Asking if Air Purifiers could cause issues. Asking if Cataract surgery is still okay to complete. She is using her walker to ambulate, which is helpful. Sister called in prior to her visit and wanted PCP to know that while she was in the ED her HR varied and got to as low as 30, but they were notified this was fine from hospital staff. They are concerned about this. Pt follows with Dr. Dacosta, last seen on 04/2022. Pt mentions her BP, she does check this at home. Has history of atrial tachycardia. HPI History of Present Illness Chief Complaint: Dizziness Informant: patient Onset/Context/Timing Onset: Today and Hours (3) Context: Sudden Onset Timing: Continuous Quality: Lightheaded Location: Generalized Worsened by: Walking Relieved by: Nothing Associated Symptoms Associated Symptoms: Tinnitus Narrative Narrative: Patient presents with dizziness that began today. Patient states it began rather suddenly approximately 3 hours prior to arrival. Patient states it has been constant. Patient describes her dizziness as a lightheaded feeling. Patient states she feels like she might pass out. Patient states it is generalized. Patient states it is worse with any walking. Patient states nothing makes it better. Patient states she started with some tinnitus prior to the dizziness. Patient admits to nausea but denies any vomiting. Patient denies any fevers or chills. Patient denies any hearing changes. Past medical history, appointments, medications, allergies reviewed. Previous Medical History PAST MEDICAL HISTORY Diagnosis Date Abdominal pain, right lower quadrant stress related Abnormal stress test Back fracture 2006 caused by accident, lumbar facet CAD (coronary artery disease) Chest pain Chest pain, unspecified 10/29/01 admitted [facility] CP: Mi ruled out; Persantine stress echo WNL. Dx: esophagitis CHF (congestive heart failure) ([facility]) Chronic systolic (congestive) heart failure (HCC) DDD (degenerative disc disease) Diaphragmatic hernia without mention of obstruction or gangrene 12/14 Hiatal hernia per EGD Dyspnea Esophagitis 12/14 per EGD Essential hypertension, benign Fatigue Fibromyalgia Hyperlipidemia diet controlled Hyperlipidemia NSTEMI (non-ST elevated myocardial infarction) ([facility]) Osteopenia 10/17 Other anxiety states Other specified anemias 12/14 PAC (premature atrial contraction) Pacemaker Paroxysmal atrial tachycardia ([facility]) PMH - PAST MEDICAL HISTORY OF post trama in left knee Sinus bradycardia SVT (supraventricular tachycardia) ([facility]) Tachycardia Takotsubo cardiomyopathy Unspecified hemorrhoids without mention of complication 12/14 Hemorrhoids, scattered diverticula per colonoscopy Previous Surgical History PAST SURGICAL HISTORY Procedure Laterality Date APPENDECTOMY 1949s ARTHRP KNE CONDYLEANDPLATU MEDIALANDLAT COMPARTMENTS Left 2006 Knee replacement, total (left knee) CARDIAC CATH 09/15/2017 possible severe proximal LAD stenosis; FFR showed no flow limitation to indicate a significant stenosis CARDIOLITE STRESS TEST 02/27/2018 modified Fer protocol, 90% MPHR, 3 METs; no ischemia or scar; LVEF 65% DELIVERY ONLY 1974 , low transverse COLONOSCOPY FLX DX W/COLLJ SPEC WHEN PFRMD 12/26/012008 Colonoscopy: scattered diverticula, internal hemorrhoids CYSTOSCOPY,URETEROSCOPY,LITHOTRIPSY (more content not included)...[facility]01-30-2023 History of Present illness Narrative* Dylan Cruz MD - 06/13/2022 1:40 PM EST Chief Complaint Patient presents with: ER F/U HPI Yuliya Hernandez is a 82 year old female who presents here today for ER Follow Up. Pt was at [facility] ER on 06/09/22 for vertigo. States her symptoms started on 06/09/22 with c/o of feeling faint, weak upon standing, dizziness andfeel sick to her stomach/nauseated. Started when she woke up and turned over in bed. Pt did have some difficulty ambulating. Her Niece came over and pt called into office and spoke with the Triage Nurse who recommended she go to local ED due to the symptoms she was experiencing. Pt was taken into ED; diagnosed with vertigo. She was given #10 valium, but pt states that she never picked these up, she received one in the hospital. When she left she felt better from the Hospital and the ringing in her ears quit. Pt called into the office on 06/10/22 with vertigo symptoms, ringing in her ears, bloated and nauseated after turning over in bed at 3:00 am. She called her neighbors due to continued dizziness from vertigo and took her over to their house. Her neighbor has vertigo as well, so she was able to help her. Pt states that she is doing much better since going to ED. She is no longer feeling like she did prior to going in. States that her eyes are a little fuzzy, but this is typical for her due to her cataracts. She is scheduled to have cataract surgery this week, . Asking if Air Purifiers couldcause issues. Asking if Cataract surgery is still okay to complete. She is using her walker to ambulate, which is helpful. Sister called in prior to her visit and wanted PCP to know that while she was in the ED her HR varied and got to as low as 30, but they were notified this was fine from hospital staff. They are concerned about this. Pt follows with nicanor Lama seen on 04/2022. Pt mentions her BP, she does check this at home. Has history of atrial tachycardia. HPI History of Present Illness Chief Complaint: Dizziness Informant: patient Onset/Context/Timing Onset: Today and Hours (3) Context: Sudden Onset Timing: Continuous Quality: Lightheaded Location: Generalized Worsened by: Walking Relieved by: Nothing Associated Symptoms Associated Symptoms: Tinnitus Narrative Narrative: Patient presents with dizziness that began today. Patient states it began rather suddenly approximately 3 hours prior to arrival. Patient states it has been constant. Patient describes her dizziness as a lightheaded feeling. Patient states she feels like she might pass out. Patient states it is generalized. Patient states it is worse with any walking. Patient states nothing makes it better. Patient states she started with some tinnitus prior to the dizziness. Patient admits to nausea but deniesany vomiting. Patient denies any fevers or chills. Patient denies any hearing changes. Past medical history, appointments, medications, allergies reviewed. Previous Medical History PAST MEDICAL HISTORY Diagnosis Date Abdominal pain, right lower quadrant stress related Abnormal stress test Back fracture 2006 caused by accident, lumbar facet CAD (coronary artery disease) Chest pain Chest pain, unspecified 10/29/01 admitted [facility] CP: Mi ruled out; Persantine stress echo WNL. Dx: esophagitis CHF (congestive heart failure) (HCC) Chronic systolic (congestive) heart failure (HCC) DDD (degenerative disc disease) Diaphragmatic hernia without mention of obstruction or gangrene 12/14 Hiatal hernia per EGD Dyspnea Esophagitis 12/14 per EGD Essential hypertension, benign Fatigue Fibromyalgia Hyperlipidemia diet controlled Hyperlipidemia NSTEMI (non-ST elevated myocardial infarction) (HCC) Osteopenia 10/17 Other anxiety states Other specified anemias 12/14 PAC (premature atrial contraction) Pacemaker Paroxysmal atrial tachycardia (HCC) PMH - PAST MEDICAL HISTORY OF post trama in left knee Sinus bradycardia SVT (supraventricular tachycardia) (HCC) Tachycardia Takotsubo cardiomyopathy Unspecified hemorrhoids without mention of complication 12/14 Hemorrhoids, scattered diverticula per colonoscopy Previous Surgical History PAST SURGICAL HISTORY Procedure Laterality Date APPENDECTOMY ARTHRP KNE CONDYLE&PLATU MEDIAL&LAT COMPARTMENTS Left 2006 Knee replacement, total (left knee) CARDIAC CATH 09/15/2017 possible severe proximal LAD stenosis; FFR showed no flow limitation to indicate a significant stenosis CARDIOLITE STRESS TEST 02/27/2018 modified Fer protocol, 90% MPHR, 3 METs; no ischemia or scar; LVEF 65% DELIVERY ONLY 1974 , low transverse COLONOSCOPY FLX DX W/COLLJ SPEC WHEN PFRMD 12/26/012008 Colonoscopy: scattered diverticula, internal hemorrhoids CYSTOSCOPY,URETEROSCOPY,LITHOTRIPSY ECHOCARDIOGRAM 02/09/2018 normal LV systolic fxn LVEF 60% with apical hypokinesis; moderate LAE; 1-2+ MR; 2+ TR; 1+ AI and PI EGD 12/17/01 ESOPHAGOGASTRODUODENOSCOPY TRANSORAL DIAGNOSTIC 01/25/2010 EGD HOLTER MONITOR 24 HOUR 12/18/2017 sinus rhythm; min HR 40 bpm; max HR 117 bpm; avg HR 70 bpm; frequent PACs, atrial couplets, atrial bigeminy, and runs of paroxysmal atrial tachycardia (longest run 658 beats at 119 bpm, fastest run 121 bpm). no symptoms reported HYSTERECTOMY HX 1990s ovaries intact, menorrhagia LAPAROSCOPY SURG CHOLECYSTECTOMY Family History FAMILY HISTORY Problem Relation Age of Onset Osteoporosis Mother Diabetes Father Pancreatic Cancer Father Diabetes Son Patient Allergies ALLERGIES Allergen Reactions Celebrex [Celecoxib] Mental Status Change nightmares Oxycontin [Oxycodon* GI Upset Codeine GI Upset Current Medications Current Outpatient Medications on File Prior to Visit Medication Sig vit A/vit C/vit E/zinc/copper (PRESERVISION AREDS ORAL) Take by mouth. lisinopril (ZESTRIL, PRINIVIL) 20 mg tablet Take 0.5 tablets by mouth once daily. amLODIPine (NORVASC) 5 mg tablet Take 0.5 tablets by mouth once daily. pantoprazole DR (PROTONIX) 20 mg tablet Take 1 tablet by mouth daily before breakfast. Take on empty stomach, 1/2 hr before meal. levothyroxine (LEVOXYL) 50 mcg tablet Take 1 tablet by mouth once daily. Take on empty stomach. ForThyroid Cholecalciferol, Vitamin D3, 50 mcg (2,000 unit) cap carbidopa-levodopa (SINEMET 25-100) 25-100 mg per tablet Take 1 tablet by mouth three times daily. No current facility-administered medications on file prior to visit. Social History Social History Tobacco Use Smoking status: Never Smokeless tobacco: Never Tobacco comments: No smoking in childhood home. Spouse of 40 years ex-smoker, 16 years ago. Vaping Use Vaping Use: Never used Substance Use Topics Alcohol use: No Drug use: No EXAM: BP 132/84 (BP Site: Left Arm, BP Position: Sitting, BP Cuff Size: Regular Adult) Pulse 100 Resp16 Wt 58.5 kg (129 lb) BMI 23.59 kg/m General Appearance: Well appearing, alert, in no acute distress, well-hydrated, well nourished. andWalker. Ears: External ears normal, canals clear. Lungs: Lungs clear to auscultation. No wheezing, rhonchi, rales.. Heart: RRR without murmur, gallop, or rubs. No ectopy. Health Maintenance List DTAP,TDAP,TD(1 - Tdap) due on 01/25/2003 SHINGRIX VACCINE(2 of 3) due on 04/09/2014 COVID-19 VACCINE(4 - Booster for Moderna series) due on 05/11/2021 ADVANCE DIRECTIVE DISCUSSION Never done COLOGUARD (FIT-DNA) due on 02/23/2023 DIABETES SCREEN due on 05/17/2025 BONE DENSITY Completed INFLUENZA Completed DEPRESSION ASSESSMENT Completed PNEUMOCOCCAL: 65+ Completed Data reviewed [facility] ER reports ASSESSMENT/PLAN: 1. Hospital discharge follow-up - ICD9: V67.59, ICD10: Z09 (primary diagnosis) Improved 2. Vertigo - ICD9: 780.4, ICD10: R42 Symptoms improved; monitor clinically 3. Tinnitus of both ears - ICD9: 388.30, ICD10: H93.13 Monitor 4. Essential hypertension, benign - ICD9: 401.1, ICD10: I10 - good control 5. Parkinson's disease (HCC) - ICD9: 332.0, ICD10: G20 Continue current medications. Follow up prn I agree with the Chief Complaint, ROS, and Past Histories independently gathered by the clinical aircraft life support fitter and the remaining scribed note accurately describes my personal service to the patient. Medical Decision Making: Problems: Low: Acute, uncomplicated illness or injury Moderate: 2+ stable chronic illnesses Risk: Moderate: Drug management Medical Decision Making Level: 4 - Moderate Dylan Cruz MD The documentation for this note was completed by Jody Oconnell Ma acting as scribe for Dylan Cruz MD. June 13, 2022 2:03 PM. Jody Oconnell Ma documented in this encounterOhiohealth [facility] Hospital01-27-2023 Miscellaneous Notes* Telephone Encounter - Jody Oconnell Ma - 06/10/2022 4:53 PM EST Pt called and notified, verbalized understanding. Jodysofie Oconnell Ma * Telephone Encounter - Dylan Curz MD - 06/10/2022 4:33 PM EST She may monitor symptoms over the weekend and we will see how she is doing on Monday Dylan Cruz MD * Telephone Encounter - Martine Vargas RN - 06/10/2022 2:34 PM EST Patient calls and states that she went to [facility] ER yesterday. Patient states that she was diagnosed with vertigo. Patient was given a valium to keep her calm. While there patient's ringing in the ears stopped. Patient states that when she woke up this morning everything started again. Patient is feeling bloated, nauseous, and had ringing in her ears. Patient states that she has a air purifier therewhich she thinks is the cause of this. Patient states that company is coming to get these on Monday. Patient set up ER follow up visit with provider on 06/13/2022. Please review and advise, Martine Vargas RN documented in this encounterOhiohealth Marion General Hospital01-26-2023 Miscellaneous Notes* Telephone Encounter - Dylan Cruz MD - 06/09/2022 5:11 PM EST Noted and agree with ER evaluation Dylan Cruz MD * Telephone Encounter - Sushil Gomez RN - 06/09/2022 4:39 PM EST Protocol recommends ER now or pcp triage. Patient agreeable, niece is there and will drive her. Reason for Disposition SEVERE dizziness (e.g., unable to stand, requires support to walk, feels like passing out now) Answer Assessment - Initial Assessment Questions 1. DESCRIPTION: Dizziness started at 2:30 pm today, when stands up. 2. LIGHTHEADED: Lightheaded. Weak upon standing, somewhat faint. 3. VERTIGO: No spinning or tilting. 4. SEVERITY: Hasn't tried because was alone. Niece is with her now and helped her stand up- feels faint. Niece is walking with patient now, patient has cane, and still feels faint. Head feels dizzy. 5. ONSET: 2:30 pm today. 6. AGGRAVATING FACTORS: Had 2 - 10 oz glasses of icewater since 2:30, getting better. Didn't drink much before 2:30, maybe 8 oz. Lips were really dry before started drinking. Ate good breakfast and lunch today. 7. HEART RATE: Apple watch reads HR 104 right now. BP right now is 156/89. 8. CAUSE: Did not have enough fluids this morning. Takes levothyroxine, lisinopril, amlodipine, sinemet, D3 & MVI. 9. RECURRENT SYMPTOM: Had dizzinesss in the past but nothing like this. 10. OTHER SYMPTOMS: No fever. No CP. Has had nausea for 2 years. No vomiting. No diarrhea- bowels moving fine. Urinating fine. No bleeding. No weakness or numbness. Feeling tired. No headaches. 11. : N/A Protocols used: Dizziness - [id number] documented in this encounterOhiohealth Marion General Hospital01-23-2023 NoteHNO ID: [id number] Author: Enrrique Reaves APRN.VIAL GAUGER Service: ? Author Type: Nurse Practitioner Type: Progress Notes Filed: 06/06/2022 10:11 AM Note Text: Chief Complaint Patient presents with: Ear Problem: Ringing in both ears since Monday. CARSON Hernandez is a 82 year old female who presents here today for Above Complaints, complaints of tinnitus. . Ongoing for 2 days. Both ears are affected. Described as a high pitch. Denies any muffled hearing. No ear pain now, some recently. Some sinus congestion. Has been trying to swallow to make it go away. No headache. No dizziness. No complaints of [place]. Recently had cataracts surgery. History of anxiety. Past medical history, appointments, medications, allergies reviewed. EXAM: BP 136/80 Pulse 103 Temp 36.6 ?C (97.8 ?F) (Left Tympanic) Resp 16 Wt 58.1 kg (128 lb) SpO2 97% BMI 23.41 kg/m? General Appearance: Well appearing, alert, in no acute distress, well-hydrated, well nourished.. Head: Normocephalic, no masses, lesions, tenderness or abnormalities. Ears: External ears normal, canals clear. Neck: Supple, no adenopathy; thyroid symmetric, normal size, no bruits. Lungs: Lungs clear to auscultation. No wheezing, rhonchi, rales.. Heart: RRR without murmur, gallop, or rubs. No ectopy. ASSESSMENT/PLAN: 1. Tinnitus of both ears - ICD9: 388.30, ICD10: H93.13 - Likely eustachian tube, less likely hearing loss related. Advised on use of Flonase 2 puffs per nostril once daily for a few days. If no improvement, gave patient number for [facility] to make an appointment. - CONSULT TO ENT Enrrique Reaves APRN.JAVI This note was partly generated using [employer] voice recognition dictation and may contain some misspelled or inaccurate words missed on review.[facility]01-23-2023 Instructions* Patient Instructions* Enrrique Reaves APRN.CNP - 06/06/2022 9:56 AM EST Trial Flonase 2 puffs once daily. Can get over the counter. Follow up with ENT if not improving or resolving. Call Enrrique Reaves APRN.CNP documented in this encounterOhiohealth Marion General Hospital01-23-2023 History of Present illness Narrative* Enrrique Reaves APRN.JAVI - 06/06/2022 9:40 AM EST Chief Complaint Patient presents with: Ear Problem: Ringing in both ears since Monday. HPI Yuliya Hernandez is a 82 year old female who presents here today for Above Complaints, complaints of tinnitus. . Ongoing for 2 days. Both ears are affected. Described as a high pitch. Denies any muffled hearing. No ear pain now, some recently. Some sinus congestion. Has been trying to swallow to make it go away. No headache. No dizziness. No complaints of [place]. Recently had cataracts surgery. History of anxiety. Past medical history, appointments, medications, allergies reviewed. EXAM: BP 136/80 Pulse 103 Temp 36.6 C (97.8 F) (Left Tympanic) Resp 16 Wt 58.1 kg (128 lb) CeK705% BMI 23.41 kg/m General Appearance: Well appearing, alert, in no acute distress, well-hydrated, well nourished.. Head: Normocephalic, no masses, lesions, tenderness or abnormalities. Ears: External ears normal, canals clear. Neck: Supple, no adenopathy; thyroid symmetric, normal size, no bruits. Lungs: Lungs clear to auscultation. No wheezing, rhonchi, rales.. Heart: RRR without murmur, gallop, or rubs. No ectopy. ASSESSMENT/PLAN: 1. Tinnitus of both ears - ICD9: 388.30, ICD10: H93.13 - Likely eustachian tube, less likely hearing loss related. Advised on use of Flonase 2 puffs per nostril once daily for a few days. If no improvement, gave patient number for [facility] to make an appointment. - CONSULT TO ENT Enrrique Reaves APRN.JAVI This note was partly generated using [employer] voice recognition dictation and may contain some misspelled or inaccurate words missed on review. documented in this encounterOhiohealth Marion [facility] Hospital01-06-2023 Miscellaneous Notes* Telephone Encounter - Rebekah Lemos Ma - 05/20/2022 8:44 AM EST Pt notified of results via [facility] [employer]. Rebekah Lemos Ma * Telephone Encounter - Dylan Cruz MD - 05/19/2022 5:21 PM EST Please notify patient that her lab results all look good. Dylan Cruz MD documented in this encounterOhiohealth Marion [facility] Hospital01-03-2023 NoteHNO ID: [id number] Author: Dylan Cruz MD Service: ? Author Type: Physician Type: Progress Notes Filed: 05/17/2022 11:58 AM Note Text: Chief Complaint Patient presents with: 6 Month Exam HPI Yuliya Hernandez is a 81 year old female who presents here today for a 6 month follow up. Pt here today for a 6 month follow up. Was seen in December by Enrrique Reaves CNP for RIYA and nausea. She has 9 cats that she cares for between her and her sister. 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 She is going to [employer] and they have a group she attends, has friends, and grand son she visits. Also has her sister that comes out several days a week to help with the cats. She has an advanced directive. C/o feeling really tired, like she wants to collapse . She watches dairy and gluten in diet. She isn't sure if her diet is contributing to her fatigue and tiredness. She is taking Vitamin D daily. Would like to try taking Osteo MD supplement OTC. Advised if she took that she could stop the Vitamin D supplement. No bowel, Gi, or urinary issues. Hx of nausea. Had been prescribed Protonix 20 mg once daily but is no longer using. States her stomach issues are stress related. HTN: Has not been checking BP at home. Denies any chest pain, sob or dizziness. Follows with Dr. Dacosta routinely. On current regimen of Lisinopril 20 mg 0.5 tab daily and Norvasc 5 mg 0.5 tab daily. Thyroid: Stable on current regimen of Levoxyl 50 mcg daily. Denies missing any dosages. RIYA: Anxious. Has been Rx'd medications in the past but currently not taking anything. Neuro: Dx with Parkinson's disease. Follows with Neuro with [place]/[facility]. Pt on current regimen of Sinemet 25-100 mg 1 tab bid to tid. Has balance issues and has done PT in the past. She is asking for a note to turn into her taxes that states she has a therapy pool and a hot tub she uses at home. Walks back and forth in the pool, uses daily. Uses the hot tub for arthritic pain. She states that she uses that so she does not have to come to facility to do exercise or do much driving. She feels a massage chair would help her but states those are expensive. Past medical history, appointments, medications, allergies reviewed. Previous Medical History PAST MEDICAL HISTORY Diagnosis Date Abdominal pain, right lower quadrant stress related Abnormal stress test Back fracture 2006 caused by accident, lumbar facet CAD (coronary artery disease) Chest pain Chest pain, unspecified 10/29/01 admitted [facility] CP: Mi ruled out; Persantine stress echo WNL. Dx: esophagitis CHF (congestive heart failure) ([facility]) Chronic systolic (congestive) heart failure (HCC) DDD (degenerative disc disease) Diaphragmatic hernia without mention of obstruction or gangrene 12/14 Hiatal hernia per EGD Dyspnea Esophagitis 12/14 per EGD Essential hypertension, benign Fatigue Fibromyalgia Hyperlipidemia diet controlled Hyperlipidemia NSTEMI (non-ST elevated myocardial infarction) ([facility]) Osteopenia 10/17 Other anxiety states Other specified anemias 12/14 PAC (premature atrial contraction) Pacemaker Paroxysmal atrial tachycardia ([facility]) PMH - PAST MEDICAL HISTORY OF post trama in left knee Sinus bradycardia SVT (supraventricular tachycardia) ([facility]) Tachycardia Takotsubo cardiomyopathy Unspecified hemorrhoids without mention of complication 12/14 Hemorrhoids, scattered diverticula per colonoscopy Previous Surgical History PAST SURGICAL HISTORY Procedure Laterality Date APPENDECTOMY ARTHRP KNE CONDYLEANDPLATU MEDIALANDLAT COMPARTMENTS Left 2006 Knee replacement, total (left knee) CARDIAC CATH 09/15/2017 possible severe proximal LAD stenosis; FFR showed no flow limitation to indicate a significant stenosis CARDIOLITE STRESS TEST 02/27/2018 modified Fer protocol, 90% MPHR, 3 METs; no ischemia or scar; LVEF 65% DELIVERY ONLY 1974 , low transverse COLONOSCOPY FLX DX W/COLLJ SPEC WHEN PFRMD 12/26/012008 Colonoscopy: scattered diverticula, internal hemorrhoids CYSTOSCOPY,URETEROSCOPY,LITHOTRIPSY ECHOCARDIOGRAM 02/09/2018 normal LV systolic fxn LVEF 60% with apical hypokinesis; moderate LAE; 1-2+ MR; 2+ TR; 1+ AI and PI EGD 12/17/01 ESOPHAGOGASTRODUODENOSCOPY TRANSORAL DIAGNOSTIC 01/25/2010 EGD HOLTER MONITOR 24 HOUR 12/18/2017 sinus rhythm; min HR 40 bpm; max HR 117 bpm; avg HR 70 bpm; frequent PACs, atrial couplets, atrial bigeminy, and runs of paroxysmal atrial tachycardia (longest run 658 beats at 119 bpm, fastest run 121 bpm). no symptoms reported HYSTERECTOMY HX 1990s ovaries intact, menorrhagia LAPAROSCOPY SURG CHOLECYSTECTOMY Family History FAMILY HISTORY Problem Relation Age of Onset Osteoporosis Mother Diabetes Father Pancreatic Cance (more content not included)...[facility] 05-17-2022 History of Present illness Narrative* Dylan Cruz MD - 05/17/2022 11:00 AM EST Chief Complaint Patient presents with: 6 Month Exam HPI Yuliya Hernandez is a 81 year old female who presents here today for a 6 month follow up. Pt here today for a 6 month follow up. Was seen in December by Enrrique Reaves CNP for RIYA and nausea. She has 9 cats that she cares for between her and her sister. 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 She is going to [employer] and they have a group she attends, has friends, and grand son she visits. Also has her sister that comes out several days a week to help with the cats. She has an advanced directive. C/o feeling really tired, like she wants to collapse . She watches dairy and gluten in diet. She isn't sure if her diet is contributing to her fatigue and tiredness. She is taking Vitamin D daily. Would like to try taking Usha RAMSAY supplement OTC. Advised if she took that she could stop the VitaminD supplement. No bowel, Gi, or urinary issues. Hx of nausea. Had been prescribed Protonix 20 mg once daily but isno longer using. States her stomach issues are stress related. HTN: Has not been checking BP at home. Denies any chest pain, sob or dizziness. Follows with Dr. Dacosta routinely. On current regimen of Lisinopril 20 mg 0.5 tab daily and Norvasc 5 mg 0.5 tab daily. Thyroid: Stable on current regimen of Levoxyl 50 mcg daily. Denies missing any dosages. RIYA: Anxious. Has been Rx'd medications in the past but currently not taking anything. Neuro: Dx with Parkinson's disease. Follows with Neuro with [place]. Pt on current regimen of Sinemet 25-100 mg 1 tab bid to tid. Has balance issues and has done PT in the past. She is asking for a note to turn into her taxes that states she has a therapy pool and a hot tub she uses at home. Walks back and forth in the pool, uses daily. Uses the hot tub for arthritic pain. She states that she uses that so she does not have to come to facility to do exercise or do much driving. She feels a massage chair would help her but states those are expensive. Past medical history, appointments, medications, allergies reviewed. Previous Medical History PAST MEDICAL HISTORY Diagnosis Date Abdominal pain, right lower quadrant stress related Abnormal stress test Back fracture 2006 caused by accident, lumbar facet CAD (coronary artery disease) Chest pain Chest pain, unspecified 10/29/01 admitted [facility] CP: Mi ruled out; Persantine stress echo WNL. Dx: esophagitis CHF (congestive heart failure) (HCC) Chronic systolic (congestive) heart failure (HCC) DDD (degenerative disc disease) Diaphragmatic hernia without mention of obstruction or gangrene 12/14 Hiatal hernia per EGD Dyspnea Esophagitis 12/14 per EGD Essential hypertension, benign Fatigue Fibromyalgia Hyperlipidemia diet controlled Hyperlipidemia NSTEMI (non-ST elevated myocardial infarction) ([facility]) Osteopenia 10/17 Other anxiety states Other specified anemias 12/14 PAC (premature atrial contraction) Pacemaker Paroxysmal atrial tachycardia ([facility]) PMH - PAST MEDICAL HISTORY OF post trama in left knee Sinus bradycardia SVT (supraventricular tachycardia) ([facility]) Tachycardia Takotsubo cardiomyopathy Unspecified hemorrhoids without mention of complication 12/14 Hemorrhoids, scattered diverticula per colonoscopy Previous Surgical History PAST SURGICAL HISTORY Procedure Laterality Date APPENDECTOMY ARTHRP KNE CONDYLE&PLATU MEDIAL&LAT COMPARTMENTS Left 2006 Knee replacement, total (left knee) CARDIAC CATH 09/15/2017 possible severe proximal LAD stenosis; FFR showed no flow limitation to indicate a significant stenosis CARDIOLITE STRESS TEST 02/27/2018 modified Fer protocol, 90% MPHR, 3 METs; no ischemia or scar; LVEF 65% DELIVERY ONLY 1974 , low transverse COLONOSCOPY FLX DX W/COLLJ SPEC WHEN PFRMD 12/26/012008 Colonoscopy: scattered diverticula, internal hemorrhoids CYSTOSCOPY,URETEROSCOPY,LITHOTRIPSY ECHOCARDIOGRAM 02/09/2018 normal LV systolic fxn LVEF 60% with apical hypokinesis; moderate LAE; 1-2+ MR; 2+ TR; 1+ AI and PI EGD 12/17/01 ESOPHAGOGASTRODUODENOSCOPY TRANSORAL DIAGNOSTIC 01/25/2010 EGD HOLTER MONITOR 24 HOUR 12/18/2017 sinus rhythm; min HR 40 bpm; max HR 117 bpm; avg HR 70 bpm; frequent PACs, atrial couplets, atrial bigeminy, and runs of paroxysmal atrial tachycardia (longest run 658 beats at 119 bpm, fastest run 121 bpm). no symptoms reported HYSTERECTOMY HX 1990s ovaries intact, menorrhagia LAPAROSCOPY SURG CHOLECYSTECTOMY Family History FAMILY HISTORY Problem Relation Age of Onset Osteoporosis Mother Diabetes Father Pancreatic Cancer Father Diabetes Son Patient Allergies ALLERGIES Allergen Reactions Celebrex [Celecoxib] Mental Status Change nightmares Oxycontin [Oxycodon* GI Upset Codeine GI Upset Current Medications Current Outpatient Medications on File Prior to Visit Medication Sig pantoprazole DR (PROTONIX) 20 mg tablet Take 1 tablet by mouth daily before breakfast. Take on empty stomach, 1/2 hr before meal. levothyroxine (LEVOXYL) 50 mcg tablet Take 1 tablet by mouth once daily. Take on empty stomach. ForThyroid Cholecalciferol, Vitamin D3, 50 mcg (2,000 unit) cap carbidopa-levodopa (SINEMET 25-100) 25-100 mg per tablet Take 1 tablet by mouth three times daily. lisinopril (ZESTRIL, PRINIVIL) 20 mg tablet Take 0.5 tablets by mouth once daily. amLODIPine (NORVASC) 5 mg tablet Take 0.5 tablets by mouth once daily. No current facility-administered medications on file prior to visit. Social History Social History Tobacco Use Smoking status: Never Smokeless tobacco: Never Tobacco comments: No smoking in childhood home. Spouse of 40 years ex-smoker, 16 years ago. Vaping Use Vaping Use: Never used Substance Use Topics Alcohol use: No Drug use: No EXAM: BP 126/74 Pulse 94 Resp 18 Wt 61.8 kg (136 lb 4.8 oz) BMI 24.93 kg/m General Appearance: Well appearing, alert, in no acute distress, well-hydrated, well nourished.. Lungs: Lungs clear to auscultation. No wheezing, rhonchi, rales.. Heart: RRR without murmur, gallop, or rubs. No ectopy. Health Maintenance List DTAP,TDAP,TD(1 - Tdap) due on 01/25/2003 SHINGRIX VACCINE(2 of 3) due on 04/09/2014 BP CONTROLLED (<130/80) due on 08/22/2019 COVID-19 VACCINE(4 - Booster for Moderna series) due on 05/11/2021 ADVANCE DIRECTIVE DISCUSSION Never done DEPRESSION ASSESSMENT Never done INFLUENZA(1) due on 01/13/2022 ANNUAL PCP TEAM CHRONIC DISEASE VISIT due on 12/13/2022 COLOGUARD (FIT-DNA) due on 02/23/2023 DIABETES SCREEN due on 10/15/2024 BONE DENSITY Completed PNEUMOCOCCAL: 65+ Completed Data reviewed Labs done at [facility] by Dr. Dacosta ASSESSMENT/PLAN: 1. Essential hypertension, benign - ICD9: 401.1, ICD10: I10 (primary diagnosis) - good control - Continue current medication(s) - Recommended regular aerobic exercise. - Recommend home blood pressure monitoring, to bring results in on next visit - Goal of BP <130/80 2. Parkinson's disease (HCC) - ICD9: 332.0, ICD10: G20 Continue current medications. Continue with Neuro 3. Acquired hypothyroidism - ICD9: 244.9, ICD10: E03.9 - Instructed patient on importance of taking on an empty stomach either first thing in the morning or at bedtime. Check labs today 4. Anxiety - ICD9: 300.00, ICD10: F41.9 stable Follow up in 6 months. Will notify of lab results. I agree with the Chief Complaint, ROS, and Past Histories independently gathered by the clinical aircraft life support fitter and the remaining scribed note accurately describes my personal service to the patient. Medical Decision Making: Problems: Moderate: 2+ stable chronic illnesses Data: Unique test(s) ordered: 3+ Risk: Moderate: Drug management Medical Decision Making Level: 4 - Moderate Dylan Cruz MD The documentation for this note was completed by Rebekah Lemos Ma acting as scribe for Dylan Cruz MD. May 17, 2022 11:11 AM. Rebekah Lemos Ma documented in this encounterOhiohealth Marion [facility] Hospital12-05-2022 Miscellaneous Notes* Telephone Encounter - Estefani Cameron RN - 04/18/2022 4:33 PM EST Pt called and is notified of providers message. Pt voices understanding. Estefani Cameron RN * Telephone Encounter - Dylan Cruz MD - 04/18/2022 3:01 PM EST Vit B12 order filed Dylan Cruz MD * Telephone Encounter - Susanna Matute LPN - 04/18/2022 10:55 AM EST Patient calling asking if Vitamin B 12 lab could be added to her upcoming lab work to get completed. Patient said she has been very fatigued lately, she takes her vitamin D 3 daily. Pending order if wanted, needs diagnosis. Please advise documented in this encounterOhiohealth Marion General Hospital08-11-2022 Miscellaneous Notes* Telephone Encounter - Estefani Cameron RN - 12/23/2021 5:00 PM EDT Pt called and is notified of providers message and instructions. Pt voices understanding. Estefani Cameron RN * Telephone Encounter - Dylan Cruz MD - 12/23/2021 4:48 PM EDT It is OK to take those OTC supplements Dylan Cruz MD * Telephone Encounter - Martine Vargas RN - 12/23/2021 4:04 PM EDT Patient calls and states that she has just received some over the counter medicines and wanted provider to advise on these. Patient asking if these medications will interact with medications she is currently on. Medications are nitric oxide plus and vision guard. Please review and advise, Martine Vargas RN documented in this encounterOhiohealth Marion [facility] Hospital08-02-2022 Miscellaneous Notes* Telephone Encounter - Lidia Richardson Ma - 12/14/2021 1:34 PM EDT Information faxed to pt's home. * Telephone Encounter - Enrrique Reaves APRN.CNP - 12/14/2021 1:14 PM EDT Article printed, can we mail to house? Enrrique Reaves APRN.CNP * Telephone Encounter - Emily Vazquez LPN - 12/14/2021 11:09 AM EDT Pt had an appt yesterday and was prescribed pantoprazole. Pt reports she read the side effects and pt reports there are too many and she is not comfortable taking medication. Pt reports at appt it was discussed about how much fruit pt eats and it could be the cause of stomach issue. Pt reports she will cut down on fruit and is asking if provider has a printout of fruits that are more/less acidic.Pt reports she does not use the computer. Please review and advise. Emily Vazquez LPN documented in this encounterOhiohealth Marion General Hospital08-01-2022 Instructions* Patient Instructions* Enrrique Reaves APRN.CNP - 12/13/2021 1:17 PM EDT 1. Continue with current medications. 2. Start medication to calm down stomach 3. 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 Avoid cow's milk. 5. Follow up if not improving. Enrrique Reaves APRN.CNP documented in this encounterOhiohealth Marion General Hospital08-01-2022 History of Present illness Narrative* Enrrique Reaves APRN.CNP - 12/13/2021 1:00 PM EDT Chief Complaint Patient presents with: stomach issues: nausea HPI Yuliya Hernandez is a 81 year old female who presents here today for Above Complaints.. Patient presents the office today for complaints of anxiety and stomach issues. Of note, patient was previously on BuSpar but it was discontinued at her most recent appointment with Dr. Cruz on November 11 as the patient felt that this was not working. Plan was to continue hydroxyzine for general anxiety disorder. Patient then called back on 11/19/2021 after realizing that instructions were to stop BuSpar and continue with hydroxyzine. Patient stating that she did not restart hydroxyzine as she has been using Benadryl for pruritus as needed. Dr. Cruz recommended just continuing with Benadryl as needed. She is anxious during the day. She states that she has not been anxious when she is active and not sitting for prolonged periods of time. She states that she usually is nauseated first thing in the morning and then also can occur before after meals or when needing to go somewhere. 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 She is sleeping well. Patient does have a history of abdominal distress related to her anxiety. She was previously followed with gastroenterology for abdominal bloating, fatigue, abdominal discomfort. She does have complaints of nausea. Mainly when she first wakes up. No fevers or chills. No change in bowel or bladder habits. No blood in her stool or urine. Previously was on a PPI but is no longer. Unsure of why. Doeshave occasional bloating. Does admit that she gets some gastric irritation with milk-containing products. Drinks almond milk usually. Does admit to eating some cheese, small scoop of ice cream recently that caused her nausea, bloating, abdominal upset. Denies any acid reflux esophageal symptoms. Patient has a history of gallbladder removal. Past medical history, appointments, medications, allergies reviewed. Previous Medical History PAST MEDICAL HISTORY Diagnosis Date Abdominal pain, right lower quadrant stress related Abnormal stress test Back fracture 2006 caused by accident, lumbar facet CAD (coronary artery disease) Chest pain Chest pain, unspecified 10/29/01 admitted [facility] CP: Mi ruled out; Persantine stress echo WNL. Dx: esophagitis CHF (congestive heart failure) (HCC) Chronic systolic (congestive) heart failure (HCC) DDD (degenerative disc disease) Diaphragmatic hernia without mention of obstruction or gangrene 12/14 Hiatal hernia per EGD Dyspnea Esophagitis 12/14 per EGD Essential hypertension, benign Fatigue Fibromyalgia Hyperlipidemia diet controlled Hyperlipidemia NSTEMI (non-ST elevated myocardial infarction) ([facility]) Osteopenia 10/17 Other anxiety states Other specified anemias 12/14 PAC (premature atrial contraction) Pacemaker Paroxysmal atrial tachycardia ([facility]) PMH - PAST MEDICAL HISTORY OF post trama in left knee Sinus bradycardia SVT (supraventricular tachycardia) ([facility]) Tachycardia Takotsubo cardiomyopathy Unspecified hemorrhoids without mention of complication 12/14 Hemorrhoids, scattered diverticula per colonoscopy Previous Surgical History PAST SURGICAL HISTORY Procedure Laterality Date APPENDECTOMY ARTHRP KNE CONDYLE&PLATU MEDIAL&LAT COMPARTMENTS Left 2006 Knee replacement, total (left knee) CARDIAC CATH 09/15/2017 possible severe proximal LAD stenosis; FFR showed no flow limitation to indicate a significant stenosis CARDIOLITE STRESS TEST 02/27/2018 modified Fer protocol, 90% MPHR, 3 METs; no ischemia or scar; LVEF 65% DELIVERY ONLY 1974 , low transverse COLONOSCOPY FLX DX W/COLLJ SPEC WHEN PFRMD 12/26/012008 Colonoscopy: scattered diverticula, internal hemorrhoids CYSTOSCOPY,URETEROSCOPY,LITHOTRIPSY ECHOCARDIOGRAM 02/09/2018 normal LV systolic fxn LVEF 60% with apical hypokinesis; moderate LAE; 1-2+ MR; 2+ TR; 1+ AI and PI EGD 12/17/01 ESOPHAGOGASTRODUODENOSCOPY TRANSORAL DIAGNOSTIC 01/25/2010 EGD HOLTER MONITOR 24 HOUR 12/18/2017 sinus rhythm; min HR 40 bpm; max HR 117 bpm; avg HR 70 bpm; frequent PACs, atrial couplets, atrial bigeminy, and runs of paroxysmal atrial tachycardia (longest run 658 beats at 119 bpm, fastest run 121 bpm). no symptoms reported HYSTERECTOMY HX 1990s ovaries intact, menorrhagia LAPAROSCOPY SURG CHOLECYSTECTOMY Family History FAMILY HISTORY Problem Relation Age of Onset Osteoporosis Mother Diabetes Father Pancreatic Cancer Father Diabetes Son Patient Allergies ALLERGIES Allergen Reactions Celebrex [Celecoxib] Mental Status Change nightmares Oxycontin [Oxycodon* GI Upset Codeine GI Upset Current Medications Current Outpatient Medications on File Prior to Visit Medication Sig levothyroxine (LEVOXYL) 50 mcg tablet Take 1 tablet by mouth once daily. Take on empty stomach. ForThyroid Cholecalciferol, Vitamin D3, 50 mcg (2,000 unit) cap carbidopa-levodopa (SINEMET 25-100) 25-100 mg per tablet Take 1 tablet by mouth three times daily. lisinopril (ZESTRIL, PRINIVIL) 20 mg tablet Take 0.5 tablets by mouth once daily. amLODIPine (NORVASC) 5 mg tablet Take 0.5 tablets by mouth once daily. No current facility-administered medications on file prior to visit. Social History Social History Tobacco Use Smoking status: Never Smoker Smokeless tobacco: Never Used Tobacco comment: No smoking in childhood home. Spouse of 40 years ex-smoker, 16 years ago. Vaping Use Vaping Use: Never used Substance Use Topics Alcohol use: No Drug use: No REVIEW OF SYSTEMS: as above Reviewed relevant PMHx, PSHx, Social Hx, current medications and allergies. 0 EXAM: BP 138/72 Pulse 96 Temp 36.8 C (98.2 F) (Left Tympanic) Resp 16 Wt 60.3 kg (133 lb) BMI 24.33 kg/m Appearance: well dressed well groomed, cooperative and pleasant Behavior: good eye contact Speech: fast Mood: anxious Affect: appropriate Perceptions: none Thought process: tangential Thought Content: normal Intelligence level: normal Insight: fair Judgment: fair Lungs: Lungs clear to auscultation. No wheezing, rhonchi, rales.. Heart: RRR without murmur, gallop, or rubs. No ectopy. Abdomen: Normal abdominal exam, Abdomen soft, non-tender. Bowel sounds normal. No masses, organomegaly. Health Maintenance List DTAP,TDAP,TD(1 - Tdap) due on 01/25/2003 SHINGRIX VACCINE(2 of 3) due on 04/09/2014 ADVANCE DIRECTIVE DISCUSSION Never done COVID-19 VACCINE(4 - Booster for Moderna series) due on 07/14/2021 DEPRESSION SCREENING due on 07/19/2021 INFLUENZA(1) due on 01/13/2022 ANNUAL PCP TEAM CHRONIC DISEASE VISIT due on 11/11/2022 BP CONTROLLED (<130/80) due on 11/11/2022 COLOGUARD (FIT-DNA) due on 02/23/2023 DIABETES SCREEN due on 10/15/2024 BONE DENSITY Completed PNEUMOCOCCAL: 65+ Completed Data reviewed Component Latest Ref Rng & Units 10/15/2021 Protein, Total 6.3 - 8.0 g/dL 6.7 Albumin 3.9 - 4.9 g/dL 4.3 Calcium 8.5 - 10.2 mg/dL 10.1 Bilirubin, Total 0.2 - 1.3 mg/dL 0.4 Alkaline Phosphatase 34 - 123 U/L 103 AST 13 - 35 U/L 21 ALT 7 - 38 U/L 18 Glucose 74 - 99 mg/dL 93 BUN 7 - 21 mg/dL 25 (H) Creatinine 0.58 - 0.96 mg/dL 0.96 Sodium 136 - 144 mmol/L 142 Potassium 3.7 - 5.1 mmol/L 4.8 Chloride 97 - 105 mmol/L 105 CO2 22 - 30 mmol/L 27 Anion Gap 9 - 18 mmol/L 10 eGFR >=60 mL/min/1.73m 60 Cholesterol, Total <200 mg/dL 191 Triglyceride <150 mg/dL 49 HDL Cholesterol >39 mg/dL 68 Non HDL Cholesterol <130 mg/dL 123 Fasting Time hrs 12 VLDL Cholesterol <30 mg/dL 10 TC:HDL Ratio <5.10 2.81 LDL Cholesterol <100 mg/dL 113 (H) LDL:HDL Ratio <2.54 1.66 TSH 0.270 - 4.200 mIU/L 4.130 ASSESSMENT/PLAN: 1. Anxiety - ICD9: 300.00, ICD10: F41.9 (primary diagnosis) -Chronic ongoing problem. Usually well controlled when she stays busy. Discussing today that BuSpardid not help. She is taking Benadryl only as needed. Did not wish to start on any other medicationsat this time. 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 Limiting downtime. 2. Nausea - ICD9: 787.02, ICD10: R11.0 -Nausea likely secondary to #1. Might also be some underlying gastritis, reflux. Discussed avoidingmilk-containing products to see if this improves. Start PPI - PANTOPRAZOLE 20 MG TABLET,DELAYED RELEASE Enrrique Reaves APRN.CNP RTO as scheduled, sooner if needed. This note was partly generated using [employer] voice recognition dictation and may contain some misspelled or inaccurate words missed on review. documented in this encounterOhiohealth [facility]07-12-2022 Miscellaneous Notes* Telephone Encounter - Johanna Wilson Cma - 11/23/2021 2:09 PM EDT Patient notified and verbalized understanding Johanna Wilson Cma * Telephone Encounter - Dylan Cruz MD - 11/23/2021 1:52 PM EDT OK to use benadryl, and to stay off the hydroxyzine Dylan Cruz MD * Telephone Encounter - Susanna Matute LPN - 11/19/2021 3:25 PM EDT Patient calling said she did not know Dr Cruz put her back on Hydroxyzine after her appt on 11/11? She was reading her after visit summary and noticed that it said to take it and stop the buspar. Patient said she was on it back in August and stopped taking it, it was causing bloating and nausea. Patient said she takes benadryl for itch when she needs to. Patient said she never started taking the hydroxyzine rx again. Please advise documented in this encounterOhiohealth [facility]06-30-2022 History of Present illness Narrative* Dylan Cruz MD - 11/11/2021 2:00 PM EDT Chief Complaint No chief complaint on file. CARSON Hernandez is a 81 year old female who presents here today for 3 month follow up. No bowel, Gi, or urinary issues. HTN: Checking her BP at home. Follows with Cardio, Dr. Dacosta. Taking Lisinopril 20 mg half pilldaily and Norvasc 5 mg half pill daily. No chest pains, dizziness, or SOB. Thyroid: Taking Levoxyl 50 mcg daily. Denies any missed dosages. RIYA: Stable with Buspar 5 mg 1 pill TID and Hydroxyzine 25 mg 1 pill every 6 hours PRN. She does not feel that the buspar has helped at all; will discontinue this. Parkinson's Disease: Taking Sinemet 25-100 mg 1 pill BID to TID. Follows with Neuro at [place].Has balance issues and has had falls in the past. Doing PT at [facility]; she did have a fall there yesterday. Past medical history, appointments, medications, allergies reviewed. Previous Medical History PAST MEDICAL HISTORY Diagnosis Date Abdominal pain, right lower quadrant stress related Abnormal stress test Back fracture 2006 caused by accident, lumbar facet CAD (coronary artery disease) Chest pain Chest pain, unspecified 10/29/01 admitted [facility] CP: Mi ruled out; Persantine stress echo WNL. Dx: esophagitis CHF (congestive heart failure) (HCC) Chronic systolic (congestive) heart failure (HCC) DDD (degenerative disc disease) Diaphragmatic hernia without mention of obstruction or gangrene 12/14 Hiatal hernia per EGD Dyspnea Esophagitis 12/14 per EGD Essential hypertension, benign Fatigue Fibromyalgia Hyperlipidemia diet controlled Hyperlipidemia NSTEMI (non-ST elevated myocardial infarction) ([facility]) Osteopenia 10/17 Other anxiety states Other specified anemias 12/14 PAC (premature atrial contraction) Pacemaker Paroxysmal atrial tachycardia (HCC) PMH - PAST MEDICAL HISTORY OF post trama in left knee Sinus bradycardia SVT (supraventricular tachycardia) (HCC) Tachycardia Takotsubo cardiomyopathy Unspecified hemorrhoids without mention of complication 12/14 Hemorrhoids, scattered diverticula per colonoscopy Previous Surgical History PAST SURGICAL HISTORY Procedure Laterality Date APPENDECTOMY ARTHRP KNE CONDYLE&PLATU MEDIAL&LAT COMPARTMENTS Left 2007 Knee replacement, total (left knee) CARDIAC CATH 09/15/2017 possible severe proximal LAD stenosis; FFR showed no flow limitation to indicate a significant stenosis CARDIOLITE STRESS TEST 02/27/2018 modified Fer protocol, 90% MPHR, 3 METs; no ischemia or scar; LVEF 65% DELIVERY ONLY 1974 , low transverse COLONOSCOPY FLX DX W/COLLJ SPEC WHEN PFRMD 12/26/012008 Colonoscopy: scattered diverticula, internal hemorrhoids CYSTOSCOPY,URETEROSCOPY,LITHOTRIPSY ECHOCARDIOGRAM 02/09/2018 normal LV systolic fxn LVEF 60% with apical hypokinesis; moderate LAE; 1-2+ MR; 2+ TR; 1+ AI and PI EGD 12/17/01 ESOPHAGOGASTRODUODENOSCOPY TRANSORAL DIAGNOSTIC 01/25/2010 EGD HOLTER MONITOR 24 HOUR 12/18/2017 sinus rhythm; min HR 40 bpm; max HR 117 bpm; avg HR 70 bpm; frequent PACs, atrial couplets, atrial bigeminy, and runs of paroxysmal atrial tachycardia (longest run 658 beats at 119 bpm, fastest run 121 bpm). no symptoms reported HYSTERECTOMY HX 1990s ovaries intact, menorrhagia LAPAROSCOPY SURG CHOLECYSTECTOMY Family History FAMILY HISTORY Problem Relation Age of Onset Osteoporosis Mother Diabetes Father Pancreatic Cancer Father Diabetes Son Patient Allergies ALLERGIES Allergen Reactions Celebrex [Celecoxib] Mental Status Change nightmares Oxycontin [Oxycodon* GI Upset Codeine GI Upset Current Medications Current Outpatient Medications on File Prior to Visit Medication Sig busPIRone (BUSPAR) 5 mg tablet Take 1 tablet by mouth three times daily. levothyroxine (LEVOXYL) 50 mcg tablet Take 1 tablet by mouth once daily. Take on empty stomach. ForThyroid hydrOXYzine HCl (ATARAX) 25 mg tablet Take 1 tablet by mouth every 6 hours as needed for itching/rash or anxiety. Cholecalciferol, Vitamin D3, 50 mcg (2,000 unit) cap carbidopa-levodopa (SINEMET 25-100) 25-100 mg per tablet Take 1 tablet by mouth three times daily. lisinopril (ZESTRIL, PRINIVIL) 20 mg tablet Take 0.5 tablets by mouth once daily. amLODIPine (NORVASC) 5 mg tablet Take 0.5 tablets by mouth once daily. aspirin, enteric coated (ASPIRIN, ENTERIC COATED) 81 mg EC tablet Take 1 tablet by mouth once daily. No current facility-administered medications on file prior to visit. Social History Social History Tobacco Use Smoking status: Never Smoker Smokeless tobacco: Never Used Tobacco comment: No smoking in childhood home. Spouse of 40 years ex-smoker, 16 years ago. Vaping Use Vaping Use: Never used Substance Use Topics Alcohol use: No Drug use: No EXAM: There were no vitals taken for this visit. General Appearance: Well appearing, alert, in no acute distress, well-hydrated, well nourished.. Lungs: Lungs clear to auscultation. No wheezing, rhonchi, rales.. Heart: RRR without murmur, gallop, or rubs. No ectopy. Health Maintenance List DTAP,TDAP,TD(1 - Tdap) due on 01/25/2003 SHINGRIX VACCINE(2 of 3) due on 04/09/2014 ADVANCE DIRECTIVE DISCUSSION Never done COVID-19 VACCINE(4 - Booster for Moderna series) due on 07/14/2021 DEPRESSION SCREENING due on 07/19/2021 ANNUAL PCP TEAM CHRONIC DISEASE VISIT due on 08/03/2022 BP CONTROLLED (<130/80) due on 08/03/2022 COLOGUARD (FIT-DNA) due on 02/23/2023 DIABETES SCREEN due on 10/15/2024 BONE DENSITY Completed INFLUENZA Completed PNEUMOCOCCAL: 65+ Completed Data reviewed Appointment on 10/15/2021 Component Date Value TSH 10/15/2021 4.130 Protein, Total 10/15/2021 6.7 Albumin 10/15/2021 4.3 Calcium, Total 10/15/2021 10.1 Bilirubin, Total 10/15/2021 0.4 Alkaline Phosphatase 10/15/2021 103 AST 10/15/2021 21 ALT 10/15/2021 18 Glucose 10/15/2021 93 BUN 10/15/2021 25 (A) Creatinine 10/15/2021 0.96 Sodium 10/15/2021 142 Potassium 10/15/2021 4.8 Chloride 10/15/2021 105 CO2 10/15/2021 27 Anion Gap 10/15/2021 10 Estimated Glomerular Aldo* 10/15/2021 60 Cholesterol, Total 10/15/2021 191 Triglyceride 10/15/2021 49 HDL Cholesterol 10/15/2021 68 Non HDL Cholesterol 10/15/2021 123 Fasting Time 10/15/2021 12 VLDL Cholesterol 10/15/2021 10 TC:HDL Ratio 10/15/2021 2.81 LDL Cholesterol 10/15/2021 113 (A) LDL:HDL Ratio 10/15/2021 1.66 ASSESSMENT/PLAN: 1. Essential hypertension, benign - ICD9: 401.1, ICD10: I10 (primary diagnosis) - good control - Continue current medication(s) - Recommended regular aerobic exercise. - Recommend home blood pressure monitoring, to bring results in on next visit - Goal of BP <140/90 2. Parkinson's disease (HCC) - ICD9: 332.0, ICD10: G20 Continue current medications. Follow with Neuro 3. Acquired hypothyroidism - ICD9: 244.9, ICD10: E03.9 - Instructed patient on importance of taking on an empty stomach either first thing in the morning or at bedtime. - continue current dose of Synthroid 0.050 mg Stable 4. Gait instability - ICD9: 781.2, ICD10: R26.81 Continue PT 5. Anxiety May D/C Buspar as it has not been effective Follow up in 6 months with labs prior Medical Decision Making: Problems: Moderate: 2+ stable chronic illnesses Data: Unique test result(s) reviewed: 3+ Unique test(s) ordered: 3+ Risk: Moderate: Drug management Medical Decision Making Level: 4 - Moderate Dylan Cruz MD documented in this encounterOhio[facility]06-03-2022 Miscellaneous Notes* Telephone Encounter - Dylan Cruz MD - 10/15/2021 11:44 AM EDT OK to refill as ordered Dylan rCuz MD * Telephone Encounter - Martine Vargas RN - 10/15/2021 11:37 AM EDT Patient has been identified by name and date of : Yes Patient phones for refill(s): Pending Prescriptions Disp Refills LEVOTHYROXINE 50 MCG TABLET 30 tablet 11 Sig: Take 1 tablet by mouth once daily. Take on empty stomach. For Thyroid BIJAL: No Date of last office visit in primary care: 08/03/2021; Future Appt. 11/11/2021 Last 2 Encounter Wt Readings: Date: Wt: 08/03/2021 61.5 kg (135 lb 8 oz) 07/12/2021 60.3 kg (133 lb) Previous labs/tests for medication: Thyroid: TSH (uU/mL) Date Value 06/10/2021 3.230 Please advise. Thank you. Martine Vargas RN documented in this encounterOhiohealth [facility]06-03-2022 Miscellaneous Notes* Telephone Encounter - Tanya Birmingham RN - 10/15/2021 7:28 AM EDT Reason for call: Patient seeking to schedule lab appointment prior to scheduled PCP visit. Outcome: Patient was conferenced to Tanya Brown in Appointment center for scheduling. Patient calling with request for physician referral: Patient referred to Lab Department. . Patient denies any new or worsening symptoms of which a provider is not aware: Yes. documented in this encounterOhiohealth [facility]05-02-2022 Miscellaneous Notes* Telephone Encounter - Watson Espinal - 09/13/2021 12:14 PM EDT Pharmacy notified. * Telephone Encounter - Dylan Cruz MD - 09/13/2021 11:52 AM EDT She may use it as needed; since it is a new medicine for her I wanted to start with a small amount to see if she tolerates it. Dylan Cruz MD * Telephone Encounter - Martine Vargas RN - 09/13/2021 11:01 AM EDT Pharmacist from [facility] calls and is asking for clarification on buspirone. Buspirone is ordered three times a day. Is that scheduled or PRN? Current medication is for 30 tablets which would only be 10 days if medication is scheduled. Please review and advise, Martine Vargas RN documented in this encounterOhiohealth [facility]04-26-2022 Miscellaneous Notes* Telephone Encounter - Jody Oconnell Ma - 09/07/2021 10:21 AM EDT Call to pt and notified her of message below from Provider. Pt understood, will product picker Rx. Jody Oconnell Ma * Telephone Encounter - Dylan Cruz MD - 09/06/2021 4:23 PM EDT She may use Buspar as ordered to help with the anxiety Dylan Cruz MD * Telephone Encounter - Susanna Matute LPN - 09/06/2021 12:39 PM EDT Patient calling hydroxyzine help with the itch but not helping with her anxiety. She has a lot of stress going on, life issues. She said the medication makes her feel weak, feels like she could fall over. Patient said nothing strong or bothers her stomach. Patient uses [facility] for her pharmacy. Please advise documented in this encounterOhio[facility]04-14-2022 Miscellaneous Notes* Telephone Encounter - Rosalia Cox LPN - 08/26/2021 9:27 AM EDT Patient notified of Rx , verbalizes understanding of instructions. Rosalia Cox LPN * Telephone Encounter - Dylan Cruz MD - 08/25/2021 8:08 PM EDT OK for hydroxyzine as ordered; this should help with both itching and anxiety Dylan Cruz MD * Telephone Encounter - Estefani Cameron RN - 08/25/2021 10:12 AM EDT Pt called in and reports she is anxious and itchy. She reports provider had talked about putting her on something for anxiety before, but she had declined. Pt states at night she has been putting Benadryl spray on her body. Pt is asking if provider would send her something in for anxiety and itching. Pt reports she is sensitive to medications so nothing strong, but she can't stand the constant itching. Please send to [facility]. documented in this encounterOhiohealth [facility]02-18-2011 History of Past illness Narrative* Problem Noted Date Resolved Date Otitis media 07/02/2010 11/11/2021 Anemia, unspecified 01/25/2010 07/02/2010 Chest pain, unspecified 12/16/2008 11/12/19 22 Acute upper respiratory infections of unspecifie d site 02/10/2007 02/23/2009 Other conjunctivitis 02/10/2007 02/23/2009 Esophagitis 11/13/2008 Hernia of other specified [place] of abdominal cavity without mention of obstruction or gangrene 11/11/2021 Essential hypertension, benign 0 11/13/2008 Abdominal pain, right lower quadrant 11/11/2021 documented as of this encounter (statuses as of 11/11/2021) [facility] History of Past illness Narrative* Problem Noted Date Resolved Date Otitis media 07/02/2010 11/11/2021 Anemia, unspecified 01/25/2010 07/02/2010 Chest pain, unspecified 12/16/2008 11/12/19 22 Acute upper respiratory infections of unspecifie d site 02/10/2007 02/23/2009 Other conjunctivitis 02/10/2007 02/23/2009 Esophagitis 11/13/2008 Hernia of other specified [place] of abdominal cavity without mention of obstruction or gangrene 11/11/2021 Essential hypertension, benign 0 11/13/2008 Abdominal pain, right lower quadrant 11/11/2021 documented as of this encounter (statuses as of 11/23/2021) [facility] History of Past illness Narrative* Problem Noted Date Resolved Date Otitis media 07/02/2010 11/11/2021 Anemia, unspecified 01/25/2010 07/02/2010 Chest pain, unspecified 12/16/2008 11/12/19 22 Acute upper respiratory infections of unspecifie d site 02/10/2007 02/23/2009 Other conjunctivitis 02/10/2007 02/23/2009 Esophagitis 11/13/2008 Hernia of other specified [place] of abdominal cavity without mention of obstruction or gangrene 11/11/2021 Essential hypertension, benign 0 11/13/2008 Abdominal pain, right lower quadrant 11/11/2021 documented as of this encounter (statuses as of 12/13/2021) [facility] of Past illness Narrative* Problem Noted Date Resolved Date Otitis media 07/02/2010 11/11/2021 Anemia, unspecified 01/25/2010 07/02/2010 Chest pain, unspecified 12/16/2008 11/12/19 22 Acute upper respiratory infections of unspecifie d site 02/10/2007 02/23/2009 Other conjunctivitis 02/10/2007 02/23/2009 Esophagitis 11/13/2008 Hernia of other specified [place] of abdominal cavity without mention of obstruction or gangrene 11/11/2021 Essential hypertension, benign 0 11/13/2008 Abdominal pain, right lower quadrant 11/11/2021 documented as of this encounter (statuses as of 12/14/2021) [facility] of Past illness Narrative* Problem Noted Date Resolved Date Otitis media 07/02/2010 11/11/2021 Anemia, unspecified 01/25/2010 07/02/2010 Chest pain, unspecified 12/16/2008 11/12/19 22 Acute upper respiratory infections of unspecifie d site 02/10/2007 02/23/2009 Other conjunctivitis 02/10/2007 02/23/2009 Esophagitis 11/13/2008 Hernia of other specified [place] of abdominal cavity without mention of obstruction or gangrene 11/11/2021 Essential hypertension, benign 0 11/13/2008 Abdominal pain, right lower quadrant 11/11/2021 documented as of this encounter (statuses as of 12/23/2021) [facility] of Past illness Narrative* Problem Noted Date Resolved Date Otitis media 07/02/2010 11/11/2021 Anemia, unspecified 01/25/2010 07/02/2010 Chest pain, unspecified 12/16/2008 11/12/19 22 Acute upper respiratory infections of unspecifie d site 02/10/2007 02/23/2009 Other conjunctivitis 02/10/2007 02/23/2009 Esophagitis 11/13/2008 Hernia of other specified [place] of abdominal cavity without mention of obstruction or gangrene 11/11/2021 Essential hypertension, benign 0 11/13/2008 Abdominal pain, right lower quadrant 11/11/2021 documented as of this encounter (statuses as of 04/18/2022) [facility] of Past illness Narrative* Problem Noted Date Resolved Date Otitis media 07/02/2010 11/11/2021 Anemia, unspecified 01/25/2010 07/02/2010 Chest pain, unspecified 12/16/2008 11/12/19 22 Acute upper respiratory infections of unspecifie d site 02/10/2007 02/23/2009 Other conjunctivitis 02/10/2007 02/23/2009 Esophagitis 11/13/2008 Hernia of other specified [place] of abdominal cavity without mention of obstruction or gangrene 11/11/2021 Essential hypertension, benign 0 11/13/2008 Abdominal pain, right lower quadrant 11/11/2021 documented as of this encounter (statuses as of 05/08/2022) [facility] of Past illness Narrative* Problem Noted Date Resolved Date Otitis media 07/02/2010 11/11/2021 Anemia, unspecified 01/25/2010 07/02/2010 Chest pain, unspecified 12/16/2008 11/12/19 22 Acute upper respiratory infections of unspecifie d site 02/10/2007 02/23/2009 Other conjunctivitis 02/10/2007 02/23/2009 Esophagitis 11/13/2008 Hernia of other specified [place] of abdominal cavity without mention of obstruction or gangrene 11/11/2021 Essential hypertension, benign 0 11/13/2008 Abdominal pain, right lower quadrant 11/11/2021 documented as of this encounter (statuses as of 05/19/2022) [facility] History of Past illness Narrative* Problem Noted Date Resolved Date Otitis media 07/02/2010 11/11/2021 Anemia, unspecified 01/25/2010 07/02/2010 Chest pain, unspecified 12/16/2008 11/12/19 22 Acute upper respiratory infections of unspecifie d site 02/10/2007 02/23/2009 Other conjunctivitis 02/10/2007 02/23/2009 Esophagitis 11/13/2008 Hernia of other specified [place] of abdominal cavity without mention of obstruction or gangrene 11/11/2021 Essential hypertension, benign 0 11/13/2008 Abdominal pain, right lower quadrant 11/11/2021 documented as of this encounter (statuses as of 05/20/2022) [facility] History of Past illness Narrative* Problem Noted Date Resolved Date Otitis media 07/02/2010 11/11/2021 Anemia, unspecified 01/25/2010 07/02/2010 Chest pain, unspecified 12/16/2008 11/12/19 22 Acute upper respiratory infections of unspecifie d site 02/10/2007 02/23/2009 Other conjunctivitis 02/10/2007 02/23/2009 Esophagitis 11/13/2008 Hernia of other specified [place] of abdominal cavity without mention of obstruction or gangrene 11/11/2021 Essential hypertension, benign 0 11/13/2008 Abdominal pain, right lower quadrant 11/11/2021 documented as of this encounter (statuses as of 06/06/2022) [facility] History of Past illness Narrative* Problem Noted Date Resolved Date Otitis media 07/02/2010 11/11/2021 Anemia, unspecified 01/25/2010 07/02/2010 Chest pain, unspecified 12/16/2008 11/12/19 22 Acute upper respiratory infections of unspecifie d site 02/10/2007 02/23/2009 Other conjunctivitis 02/10/2007 02/23/2009 Esophagitis 11/13/2008 Hernia of other specified [place] of abdominal cavity without mention of obstruction or gangrene 11/11/2021 Essential hypertension, benign 0 11/13/2008 Abdominal pain, right lower quadrant 11/11/2021 documented as of this encounter (statuses as of 06/09/2022) [facility] History of Past illness Narrative* Problem Noted Date Resolved Date Otitis media 07/02/2010 11/11/2021 Anemia, unspecified 01/25/2010 07/02/2010 Chest pain, unspecified 12/16/2008 11/12/19 22 Acute upper respiratory infections of unspecifie d site 02/10/2007 02/23/2009 Other conjunctivitis 02/10/2007 02/23/2009 Esophagitis 11/13/2008 Hernia of other specified [place] of abdominal cavity without mention of obstruction or gangrene 11/11/2021 Essential hypertension, benign 0 11/13/2008 Abdominal pain, right lower quadrant 11/11/2021 documented as of this encounter (statuses as of 06/10/2022) [facility] History of Past illness Narrative* Problem Noted Date Resolved Date Otitis media 07/02/2010 11/11/2021 Anemia, unspecified 01/25/2010 07/02/2010 Chest pain, unspecified 12/16/2008 11/12/19 22 Acute upper respiratory infections of unspecifie d site 02/10/2007 02/23/2009 Other conjunctivitis 02/10/2007 02/23/2009 Esophagitis 11/13/2008 Hernia of other specified [place] of abdominal cavity without mention of obstruction or gangrene 11/11/2021 Essential hypertension, benign 0 11/13/2008 Abdominal pain, right lower quadrant 11/11/2021 documented as of this encounter (statuses as of 06/13/2022) [facility] History of Past illness Narrative* Problem Noted Date Resolved Date Otitis media 07/02/2010 11/11/2021 Anemia, unspecified 01/25/2010 07/02/2010 Chest pain, unspecified 12/16/2008 11/12/19 22 Acute upper respiratory infections of unspecifie d site 02/10/2007 02/23/2009 Other conjunctivitis 02/10/2007 02/23/2009 Esophagitis 11/13/2008 Hernia of other specified [place] of abdominal cavity without mention of obstruction or gangrene 11/11/2021 Essential hypertension, benign 0 11/13/2008 Abdominal pain, right lower quadrant 11/11/2021 documented as of this encounter (statuses as of 06/14/2022) [facility] History of Past illness Narrative* Problem Noted Date Resolved Date Otitis media 07/02/2010 11/11/2021 Anemia, unspecified 01/25/2010 07/02/2010 Chest pain, unspecified 12/16/2008 11/12/19 22 Acute upper respiratory infections of unspecifie d site 02/10/2007 02/23/2009 Other conjunctivitis 02/10/2007 02/23/2009 Esophagitis 11/13/2008 Hernia of other specified [place] of abdominal cavity without mention of obstruction or gangrene 11/11/2021 Essential hypertension, benign 0 11/13/2008 Abdominal pain, right lower quadrant 11/11/2021 documented as of this encounter (statuses as of 07/07/2022) [facility] History of Past illness Narrative* Problem Noted Date Resolved Date Otitis media 07/02/2010 11/11/2021 Anemia, unspecified 01/25/2010 07/02/2010 Chest pain, unspecified 12/16/2008 11/12/19 22 Acute upper respiratory infections of unspecifie d site 02/10/2007 02/23/2009 Other conjunctivitis 02/10/2007 02/23/2009 Esophagitis 11/13/2008 Hernia of other specified [place] of abdominal cavity without mention of obstruction or gangrene 11/11/2021 Essential hypertension, benign 0 11/13/2008 Abdominal pain, right lower quadrant 11/11/2021 documented as of this encounter (statuses as of 08/05/2022) [facility] History of Past illness Narrative* Problem Noted Date Resolved Date Otitis media 07/02/2010 11/11/2021 Anemia, unspecified 01/25/2010 07/02/2010 Chest pain, unspecified 12/16/2008 11/12/19 22 Acute upper respiratory infections of unspecifie d site 02/10/2007 02/23/2009 Other conjunctivitis 02/10/2007 02/23/2009 Esophagitis 11/13/2008 Hernia of other specified [place] of abdominal cavity without mention of obstruction or gangrene 11/11/2021 Essential hypertension, benign 0 11/13/2008 Abdominal pain, right lower quadrant 11/11/2021 documented as of this encounter (statuses as of 08/08/2022) [facility] History of Past illness Narrative* Problem Noted Date Resolved Date Otitis media 07/02/2010 11/11/2021 Anemia, unspecified 01/25/2010 07/02/2010 Chest pain, unspecified 12/16/2008 11/12/19 22 Acute upper respiratory infections of unspecifie d site 02/10/2007 02/23/2009 Other conjunctivitis 02/10/2007 02/23/2009 Esophagitis 11/13/2008 Hernia of other specified [place] of abdominal cavity without mention of obstruction or gangrene 11/11/2021 Essential hypertension, benign 0 11/13/2008 Abdominal pain, right lower quadrant 11/11/2021 documented as of this encounter (statuses as of 08/22/2022) [facility] History of Past illness Narrative* Problem Noted Date Resolved Date Otitis media 07/02/2010 11/11/2021 Anemia, unspecified 01/25/2010 07/02/2010 Chest pain, unspecified 12/16/2008 11/12/19 22 Acute upper respiratory infections of unspecifie d site 02/10/2007 02/23/2009 Other conjunctivitis 02/10/2007 02/23/2009 Esophagitis 11/13/2008 Hernia of other specified [place] of abdominal cavity without mention of obstruction or gangrene 11/11/2021 Essential hypertension, benign 0 11/13/2008 Abdominal pain, right lower quadrant 11/11/2021 documented as of this encounter (statuses as of 09/09/2022) [facility] History of Past illness Narrative* Problem Noted Date Resolved Date Otitis media 07/02/2010 11/11/2021 Anemia, unspecified 01/25/2010 07/02/2010 Chest pain, unspecified 12/16/2008 11/12/19 22 Acute upper respiratory infections of unspecifie d site 02/10/2007 02/23/2009 Other conjunctivitis 02/10/2007 02/23/2009 Esophagitis 11/13/2008 Hernia of other specified [place] of abdominal cavity without mention of obstruction or gangrene 11/11/2021 Essential hypertension, benign 0 11/13/2008 Abdominal pain, right lower quadrant 11/11/2021 documented as of this encounter (statuses as of 09/14/2022) [facility] History of Past illness Narrative* Problem Noted Date Resolved Date Otitis media 07/02/2010 11/11/2021 Anemia, unspecified 01/25/2010 07/02/2010 Chest pain, unspecified 12/16/2008 11/12/19 22 Acute upper respiratory infections of unspecifie d site 02/10/2007 02/23/2009 Other conjunctivitis 02/10/2007 02/23/2009 Esophagitis 11/13/2008 Hernia of other specified [place] of abdominal cavity without mention of obstruction or gangrene 11/11/2021 Essential hypertension, benign 0 11/13/2008 Abdominal pain, right lower quadrant 11/11/2021 documented as of this encounter (statuses as of 09/14/2022) [facility] History of Past illness Narrative* Problem Noted Date Resolved Date Otitis media 07/02/2010 11/11/2021 Anemia, unspecified 01/25/2010 07/02/2010 Chest pain, unspecified 12/16/2008 11/12/19 22 Acute upper respiratory infections of unspecifie d site 02/10/2007 02/23/2009 Other conjunctivitis 02/10/2007 02/23/2009 Esophagitis 11/13/2008 Hernia of other specified [place] of abdominal cavity without mention of obstruction or gangrene 11/11/2021 Essential hypertension, benign 0 11/13/2008 Abdominal pain, right lower quadrant 11/11/2021 documented as of this encounter (statuses as of 09/24/2022) [facility] History of Past illness Narrative* Problem Noted Date Resolved Date Otitis media 07/02/2010 11/11/2021 Anemia, unspecified 01/25/2010 07/02/2010 Chest pain, unspecified 12/16/2008 11/12/19 22 Acute upper respiratory infections of unspecifie d site 02/10/2007 02/23/2009 Other conjunctivitis 02/10/2007 02/23/2009 Esophagitis 11/13/2008 Hernia of other specified [place] of abdominal cavity without mention of obstruction or gangrene 11/11/2021 Essential hypertension, benign 0 11/13/2008 Abdominal pain, right lower quadrant 11/11/2021 documented as of this encounter (statuses as of 09/27/2022) [facility] History of Past illness Narrative* Problem Noted Date Resolved Date Otitis media 07/02/2010 11/11/2021 Anemia, unspecified 01/25/2010 07/02/2010 Chest pain, unspecified 12/16/2008 11/12/19 22 Acute upper respiratory infections of unspecifie d site 02/10/2007 02/23/2009 Other conjunctivitis 02/10/2007 02/23/2009 Esophagitis 11/13/2008 Hernia of other specified [place] of abdominal cavity without mention of obstruction or gangrene 11/11/2021 Essential hypertension, benign 0 11/13/2008 Abdominal pain, right lower quadrant 11/11/2021 documented as of this encounter (statuses as of 10/15/2022) [facility] History of Past illness Narrative* Problem Noted Date Resolved Date Otitis media 07/02/2010 11/11/2021 Anemia, unspecified 01/25/2010 07/02/2010 Chest pain, unspecified 12/16/2008 11/12/19 22 Acute upper respiratory infections of unspecifie d site 02/10/2007 02/23/2009 Other conjunctivitis 02/10/2007 02/23/2009 Esophagitis 11/13/2008 Hernia of other specified [place] of abdominal cavity without mention of obstruction or gangrene 11/11/2021 Essential hypertension, benign 0 11/13/2008 Abdominal pain, right lower quadrant 11/11/2021 documented as of this encounter (statuses as of 10/15/2022) [facility] History of Past illness Narrative* Problem Noted Date Resolved Date Otitis media 07/02/2010 11/11/2021 Anemia, unspecified 01/25/2010 07/02/2010 Chest pain, unspecified 12/16/2008 11/12/19 22 Acute upper respiratory infections of unspecifie d site 02/10/2007 02/23/2009 Other conjunctivitis 02/10/2007 02/23/2009 Esophagitis 11/13/2008 Hernia of other specified [place] of abdominal cavity without mention of obstruction or gangrene 11/11/2021 Essential hypertension, benign 0 11/13/2008 Abdominal pain, right lower quadrant 11/11/2021 documented as of this encounter (statuses as of 10/17/2022) [facility] History of Past illness Narrative* Problem Noted Date Resolved Date Otitis media 07/02/2010 11/11/2021 Anemia, unspecified 01/25/2010 07/02/2010 Chest pain, unspecified 12/16/2008 11/12/19 22 Acute upper respiratory infections of unspecifie d site 02/10/2007 02/23/2009 Other conjunctivitis 02/10/2007 02/23/2009 Esophagitis 11/13/2008 Hernia of other specified [place] of abdominal cavity without mention of obstruction or gangrene 11/11/2021 Essential hypertension, benign 0 11/13/2008 Abdominal pain, right lower quadrant 11/11/2021 documented as of this encounter (statuses as of 10/18/2022) [facility] History of Past illness Narrative* Problem Noted Date Resolved Date Otitis media 07/02/2010 11/11/2021 Anemia, unspecified 01/25/2010 07/02/2010 Chest pain, unspecified 12/16/2008 11/12/19 22 Acute upper respiratory infections of unspecifie d site 02/10/2007 02/23/2009 Other conjunctivitis 02/10/2007 02/23/2009 Esophagitis 11/13/2008 Hernia of other specified [place] of abdominal cavity without mention of obstruction or gangrene 11/11/2021 Essential hypertension, benign 0 11/13/2008 Abdominal pain, right lower quadrant 11/11/2021 documented as of this encounter (statuses as of 11/02/2022) [facility] History of Past illness Narrative* Problem Noted Date Diagnosed Date Resolved Date Otitis media 07/02/2010 11/11/2021 Anemia, unspecified 01/25/2010 07/02/19 11 Chest pain, unspecified 12/16/2008 06/3 Acute upper respiratory infe ctions of unspecified site 02/10/2007 02/23/2009 Other conjunctivitis 02/10/2007 009 Esophagitis 11/13/2008 Hernia of other specified [place] of abdominal cavity without mention of obstruction or gangrene 11/11/2021 Essential hypertension, benign 11/13/2008 Abdominal pain, right lower quadrant 11/11/2021 documented as of this encounter (statuses as of 11/25/2022) [facility] History of Past illness Narrative* Problem Noted Date Resolved Date Anemia, unspecified 01/25/2010 07/02/2010 Acute upper respiratory infections of unspecifie d site 02/10/2007 02/23/2009 Other conjunctivitis 02/10/2007 02/23/2009 Esophagitis 11/13/2008 Essential hypertension, benign 0 11/13/2008 documented as of this encounter (statuses as of 09/07/2021) [facility] History of Past illness Narrative* Problem Noted Date Resolved Date Anemia, unspecified 01/25/2010 07/02/2010 Acute upper respiratory infections of unspecifie d site 02/10/2007 02/23/2009 Other conjunctivitis 02/10/2007 02/23/2009 Esophagitis 11/13/2008 Essential hypertension, benign 0 11/13/2008 documented as of this encounter (statuses as of 09/13/2021) [facility] History of Past illness Narrative* Problem Noted Date Resolved Date Anemia, unspecified 01/25/2010 07/02/2010 Acute upper respiratory infections of unspecifie d site 02/10/2007 02/23/2009 Other conjunctivitis 02/10/2007 02/23/2009 Esophagitis 11/13/2008 Essential hypertension, benign 0 11/13/2008 documented as of this encounter (statuses as of 10/15/2021) [facility] History of Past illness Narrative* Problem Noted Date Resolved Date Anemia, unspecified 01/25/2010 07/02/2010 Acute upper respiratory infections of unspecifie d site 02/10/2007 02/23/2009 Other conjunctivitis 02/10/2007 02/23/2009 Esophagitis 11/13/2008 Essential hypertension, benign 0 11/13/2008 documented as of this encounter (statuses as of 10/15/2021) [facility] note* Diagnosis Acquired hypothyroidism Unspecified hypothyroidism documented in this encounter [facility] note* Diagnosis Essential hypertension, benign- Primary Parkinson's disease (HCC) Paralysis agitans Acquired hypothyroidism Unspecified hypothyroidism Gait instability Abnormality of gait Anxiety Anxiety state, unspecified documented in this encounter [facility] note* Diagnosis Anxiety- Primary Anxiety state, unspecified Nausea Nausea alone documented in this encounter [facility] note* Diagnosis Anemia due to other cause, not classified- Primary documented in this encounter [facility] note* Diagnosis Essential hypertension, benign- Primary Parkinson's disease (HCC) Paralysis agitans Acquired hypothyroidism Unspecified hypothyroidism Anxiety Anxiety state, unspecified Supraventricular tachycardia (HCC) Other specified cardiac dysrhythmias documented in this encounter [facility] note* Diagnosis Tinnitus of both ears- Primary Unspecified tinnitus [facility] Diagnosis Hospital discharge follow-up- Primary Other follow-up examination Vertigo Dizziness and giddiness Tinnitus of both ears Unspecified tinnitus Essential hypertension, benign Parkinson's disease (HCC) Paralysis agitans [facility]* Diagnosis Diarrhea, unspecified type- Primary Nausea Nausea alone documented in this encounter [facility] note* Diagnosis Fall as cause of accidental injury in home as place of occurrence, initial encounter- Primary documented in this encounter [facility] note* Diagnosis Dizziness and giddiness- Primary Nausea Nausea alone Bloating Flatulence, eructation, and gas pain Essential hypertension, benign Acquired hypothyroidism Unspecified hypothyroidism Hyperlipidemia, unspecified hyperlipidemia type Parkinson's disease (HCC) Paralysis agitans Gait instability Abnormality of gait Anemia due to other cause, not classified Chronic kidney disease, stage 3a (HCC) documented in this encounter [facility] note* Diagnosis Nausea- Primary Nausea alone [facility]* Diagnosis Toenail deformity- Primary Unspecified disease of nail [facility]* Diagnosis Fatigue, unspecified type- Primary Leg weakness, bilateral Other musculoskeletal symptoms referable to limbs [facility]* Diagnosis Orthostatic hypotension- Primary Leg weakness, bilateral Other musculoskeletal symptoms referable to limbs Gait instability Abnormality of gait [facility] Diagnosis Anxiety- Primary Anxiety state, unspecified Essential hypertension, benign Acquired hypothyroidism Unspecified hypothyroidism Upset stomach Dyspepsia and other specified disorders of function of stomach [facility] Diagnosis Acquired hypothyroidism Unspecified hypothyroidism [facility] Diagnosis Leg weakness, bilateral- Primary Other musculoskeletal symptoms referable to limbs Balance problems Other symptoms involving nervous and musculoskeletal systems Encounter for immunization Need for other specified prophylactic vaccination against single bacterial disease documented in this encounter [facility] note* Diagnosis Memory loss- Primary Abnormality of gait Degeneration of lumbar intervertebral disc Degeneration of lumbar or lumbosacral intervertebral disc [facility] Diagnosis Anxiety- Primary Anxiety state, unspecified [facility] Diagnosis Dementia, unspecified dementia severity, unspecified dementia type, unspecified whether behavioral, psychotic, or mood disturbance or anxiety (HCC)- Primary Supraventricular tachycardia Other specified cardiac dysrhythmias Essential hypertension, benign documented in this encounter [facility] for referral (narrative)* - Pending Review Specialty Diagnoses / Procedures Referred By Sissy pérez Referred To Contact Occupational Therapy Diagnoses Memory loss Procedures CONSULT TO LOCOMOTIVE ENGINEER Rosaura Kimball PA-C [address] [phone] Referral ID Status Reason Start Date Expiration Date V isits Requested Visits Authorized [id number] Pending Review 03/01/2023 05/30/2023 1 1 * MRI/CT (Routine) - Authorized Specialty Diagnoses / Procedures Referred By Sissy pérez Referred To Contact MR IMAGING Diagnoses Memory loss Procedures MRI BRAIN WO IVCON MRI BRAIN BRAIN STEM W/O CONTRAST MATERIAL Rosaura Kimball PA-C [address] [place] [address] [place] [address] Referral ID Status Reason Start Date Expiration Date Visits Requested Visits Authorized [id number] Authorized Auto-Generat ed Referral 03/30/2024 1 1 [facility] Summary Purpose Family History No Family History Records FoundNo Family History Records FoundNo Family History Records FoundNo Family History Records Found Advance Directives No Advanced Directives Records FoundNo Advanced Directives Records FoundNo Advanced Directives Records FoundNo Advanced Directives Records Found Reason for Referral Specialty Diagnoses / Procedures Referred By Contac t Referred To Contact Ent - Otolaryngology Diagnoses Tinnitus of both ears Procedures CONSULT TO ENT OFFICE/OUTPATIENT [facility] 60-74 MINUTES Enrrique Reaves APRN.CNP [address] [place] [address] Referral ID Status Reason Start Date Expiration Date Visits Requested Visits Authorized [id number] Pending Review PCP Requested Referral 06/06/2022 06/06/2023 1 1 Specialty Diagnoses / Procedures Referred By Contac t Referred To Contact Neurology Diagnoses Parkinson's disease (HCC) Procedures CONSULT TO NEUROLOGY OFFICE/OUTPATIENT [facility] 60-[place] [address] [place] [id number] Referral ID Status Reason Start Date Expiration Date Visits Requested Visits Authorized [id number] Pending Review PCP Requested Referral 09/13/2022 09/13/2023 1 1 Specialty Diagnoses / Procedures Referred By Contac t Referred To Contact Gastroenterology Diagnoses Nausea Procedures CONSULT TO GASTROENTEROLOGY OFFICE/OUTPATIENT [facility] 60-74 MINUTES Dylan Cruz MD [address] [place] [address] Referral ID Status Reason Start Date Expiration Date Visits Requested Visits Authorized [id number] Pending Review PCP Requested Referral 09/26/2022 09/26/2023 1 1 Specialty Diagnoses / Procedures Referred By Contac t Referred To Contact Podiatry Diagnoses Toenail deformity Procedures CONSULT TO PODIATRY OFFICE/OUTPATIENT [facility] 60-[place] [address] [place] [id number] Referral ID Status Reason Start Date Expiration Date Visits Requested Visits Authorized [id number] Pending Review PCP Requested Referral 10/13/2022 10/13/2023 1 1 Specialty Diagnoses / Procedures Referred By Contac t Referred To Contact [facility] Diagnoses Leg weakness, bilateral Balance problems Procedures CONSULT TO PHYSICAL THERAPY PHYSICAL THERAPY EVALUATION HIGH COMPLEX 45 MINS Allyssa Pacheco APRN.VIAL GAUGER [address] [place] [address] [facility] [address] [place] [address] Referral ID Status Reason Start Date Expiration Date Visits Requested Visits Authorized [id number] Authorized Auto-Generat ed Referral 05/15/2022 05/14/2023 99 99 Specialty Diagnoses / Procedures Referred By Contac t Referred To Contact Diagnoses Dementia, unspecified dementia severity, unspecified dementia type, unspecified whether behavioral, psychotic, or mood disturbance or anxiety (HCC) Supraventricular tachycardia Essential hypertension, benign Procedures CONSULT TO HOSPICE Dylan Cruz MD [address] [place] [address] Referral ID Status Reason Start Date Expiration Date Visits Requested Visits Authorized [id number] Pending Review PCP Requested Referral 3 04/23/2024 1 1 Additional Source Comments INFORMATION SOURCE (unrecogn ized section and content) DATE CREATED AUTHOR AUTHOR'S ORGANIZ ATION 05/21/2018 [facility] DATE CREATED AUTHOR AUTHOR'S ORGANIZ ATION 04/23/2023 [facility] DATE CREATED AUTHOR AUTHOR'S ORGANIZ ATION 05/02/2023 [facility] Source Comments (unrecognize d section and content) In the event this informatio n is protected by the Federal Confidentiality of Alcohol and Drug Abuse Patient Records regulations: The Federal rules restrict any use of the information to criminally investigate or prosecute any alcohol or drug abuse patient.[facility] the event this information is protected by the Federal Confidentiality of Alcohol and Drug Abuse Patient Records regulations: The Federal rules restrict any use of the information to criminally investigate or prosecute any alcohol or drug abuse patient.[facility] HospitalIn the event this information is protected by the Federal Confidentiality of Alcohol and Drug Abuse Patient Records regulations: The Federal rules restrict any use of the information to criminally investigate or prosecute any alcohol or drug abuse patient.[facility] HospitalIn the event this information is protected by the Federal Confidentiality of Alcohol and Drug Abuse Patient Records regulations: The Federal rules restrict any use of the information to criminally investigate or prosecute any alcohol or drug abuse patient.[facility] HospitalIn the event this information is protected by the Federal Confidentiality of Alcohol and Drug Abuse Patient Records regulations: The Federal rules restrict any use of the information to criminally investigate or prosecute any alcohol or drug abuse patient.[facility] HospitalIn the event this information is protected by the Federal Confidentiality of Alcohol and Drug Abuse Patient Records regulations: The Federal rules restrict any use of the information to criminally investigate or prosecute any alcohol or drug abuse patient.[facility] HospitalIn the event this information is protected by the Federal Confidentiality of Alcohol and Drug Abuse Patient Records regulations: The Federal rules restrict any use of the information to criminally investigate or prosecute any alcohol or drug abuse patient.[facility] HospitalIn the event this information is protected by the Federal Confidentiality of Alcohol and Drug Abuse Patient Records regulations: The Federal rules restrict any use of the information to criminally investigate or prosecute any alcohol or drug abuse patient.[facility] HospitalIn the event this information is protected by the Federal Confidentiality of Alcohol and Drug Abuse Patient Records regulations: The Federal rules restrict any use of the information to criminally investigate or prosecute any alcohol or drug abuse patient.[facility] HospitalIn the event this information is protected by the Federal Confidentiality of Alcohol and Drug Abuse Patient Records regulations: The Federal rules restrict any use of the information to criminally investigate or prosecute any alcohol or drug abuse patient.[facility] HospitalIn the event this information is protected by the Federal Confidentiality of Alcohol and Drug Abuse Patient Records regulations: The Federal rules restrict any use of the information to criminally investigate or prosecute any alcohol or drug abuse patient.[facility] HospitalIn the event this information is protected by the Federal Confidentiality of Alcohol and Drug Abuse Patient Records regulations: The Federal rules restrict any use of the information to criminally investigate or prosecute any alcohol or drug abuse patient.[facility] HospitalIn the event this information is protected by the Federal Confidentiality of Alcohol and Drug Abuse Patient Records regulations: The Federal rules restrict any use of the information to criminally investigate or prosecute any alcohol or drug abuse patient.[facility] HospitalIn the event this information is protected by the Federal Confidentiality of Alcohol and Drug Abuse Patient Records regulations: The Federal rules restrict any use of the information to criminally investigate or prosecute any alcohol or drug abuse patient.[facility] HospitalIn the event this information is protected by the Federal Confidentiality of Alcohol and Drug Abuse Patient Records regulations: The Federal rules restrict any use of the information to criminally investigate or prosecute any alcohol or drug abuse patient.[facility] HospitalIn the event this information is protected by the Federal Confidentiality of Alcohol and Drug Abuse Patient Records regulations: The Federal rules restrict any use of the information to criminally investigate or prosecute any alcohol or drug abuse patient.[facility] HospitalIn the event this information is protected by the Federal Confidentiality of Alcohol and Drug Abuse Patient Records regulations: The Federal rules restrict any use of the information to criminally investigate or prosecute any alcohol or drug abuse patient.[facility] HospitalIn the event this information is protected by the Federal Confidentiality of Alcohol and Drug Abuse Patient Records regulations: The Federal rules restrict any use of the information to criminally investigate or prosecute any alcohol or drug abuse patient.[facility] HospitalIn the event this information is protected by the Federal Confidentiality of Alcohol and Drug Abuse Patient Records regulations: The Federal rules restrict any use of the information to criminally investigate or prosecute any alcohol or drug abuse patient.[facility] HospitalIn the event this information is protected by the Federal Confidentiality of Alcohol and Drug Abuse Patient Records regulations: The Federal rules restrict any use of the information to criminally investigate or prosecute any alcohol or drug abuse patient.[facility] HospitalIn the event this information is protected by the Federal Confidentiality of Alcohol and Drug Abuse Patient Records regulations: The Federal rules restrict any use of the information to criminally investigate or prosecute any alcohol or drug abuse patient.[facility] HospitalIn the event this information is protected by the Federal Confidentiality of Alcohol and Drug Abuse Patient Records regulations: The Federal rules restrict any use of the information to criminally investigate or prosecute any alcohol or drug abuse patient.[facility] HospitalIn the event this information is protected by the Federal Confidentiality of Alcohol and Drug Abuse Patient Records regulations: The Federal rules restrict any use of the information to criminally investigate or prosecute any alcohol or drug abuse patient.[facility] HospitalIn the event this information is protected by the Federal Confidentiality of Alcohol and Drug Abuse Patient Records regulations: The Federal rules restrict any use of the information to criminally investigate or prosecute any alcohol or drug abuse patient.[facility] HospitalIn the event this information is protected by the Federal Confidentiality of Alcohol and Drug Abuse Patient Records regulations: The Federal rules restrict any use of the information to criminally investigate or prosecute any alcohol or drug abuse patient.[facility] HospitalIn the event this information is protected by the Federal Confidentiality of Alcohol and Drug Abuse Patient Records regulations: The Federal rules restrict any use of the information to criminally investigate or prosecute any alcohol or drug abuse patient.[facility] HospitalIn the event this information is protected by the Federal Confidentiality of Alcohol and Drug Abuse Patient Records regulations: The Federal rules restrict any use of the information to criminally investigate or prosecute any alcohol or drug abuse patient.[facility] HospitalIn the event this information is protected by the Federal Confidentiality of Alcohol and Drug Abuse Patient Records regulations: The Federal rules restrict any use of the information to criminally investigate or prosecute any alcohol or drug abuse patient.[facility] HospitalIn the event this information is protected by the Federal Confidentiality of Alcohol and Drug Abuse Patient Records regulations: The Federal rules restrict any use of the information to criminally investigate or prosecute any alcohol or drug abuse patient.[facility] HospitalIn the event this information is protected by the Federal Confidentiality of Alcohol and Drug Abuse Patient Records regulations: The Federal rules restrict any use of the information to criminally investigate or prosecute any alcohol or drug abuse patient.[facility] HospitalIn the event this information is protected by the Federal Confidentiality of Alcohol and Drug Abuse Patient Records regulations: The Federal rules restrict any use of the information to criminally investigate or prosecute any alcohol or drug abuse patient.[facility] HospitalIn the event this information is protected by the Federal Confidentiality of Alcohol and Drug Abuse Patient Records regulations: The Federal rules restrict any use of the information to criminally investigate or prosecute any alcohol or drug abuse patient.[facility] HospitalIn the event this information is protected by the Federal Confidentiality of Alcohol and Drug Abuse Patient Records regulations: The Federal rules restrict any use of the information to criminally investigate or prosecute any alcohol or drug abuse patient.[facility] HospitalIn the event this information is protected by the Federal Confidentiality of Alcohol and Drug Abuse Patient Records regulations: The Federal rules restrict any use of the information to criminally investigate or prosecute any alcohol or drug abuse patient.[facility] HospitalIn the event this information is protected by the Federal Confidentiality of Alcohol and Drug Abuse Patient Records regulations: The Federal rules restrict any use of the information to criminally investigate or prosecute any alcohol or drug abuse patient.[facility] HospitalIn the event this information is protected by the Federal Confidentiality of Alcohol and Drug Abuse Patient Records regulations: The Federal rules restrict any use of the information to criminally investigate or prosecute any alcohol or drug abuse patient.[facility] HospitalIn the event this information is protected by the Federal Confidentiality of Alcohol and Drug Abuse Patient Records regulations: The Federal rules restrict any use of the information to criminally investigate or prosecute any alcohol or drug abuse patient.[facility] HospitalIn the event this information is protected by the Federal Confidentiality of Alcohol and Drug Abuse Patient Records regulations: The Federal rules restrict any use of the information to criminally investigate or prosecute any alcohol or drug abuse patient.[facility] HospitalIn the event this information is protected by the Federal Confidentiality of Alcohol and Drug Abuse Patient Records regulations: The Federal rules restrict any use of the information to criminally investigate or prosecute any alcohol or drug abuse patient.[facility] HospitalIn the event this information is protected by the Federal Confidentiality of Alcohol and Drug Abuse Patient Records regulations: The Federal rules restrict any use of the information to criminally investigate or prosecute any alcohol or drug abuse patient.[facility] HospitalIn the event this information is protected by the Federal Confidentiality of Alcohol and Drug Abuse Patient Records regulations: The Federal rules restrict any use of the information to criminally investigate or prosecute any alcohol or drug abuse patient.[facility] HospitalIn the event this information is protected by the Federal Confidentiality of Alcohol and Drug Abuse Patient Records regulations: The Federal rules restrict any use of the information to criminally investigate or prosecute any alcohol or drug abuse patient.[facility] HospitalIn the event this information is protected by the Federal Confidentiality of Alcohol and Drug Abuse Patient Records regulations: The Federal rules restrict any use of the information to criminally investigate or prosecute any alcohol or drug abuse patient.[facility] HospitalIn the event this information is protected by the Federal Confidentiality of Alcohol and Drug Abuse Patient Records regulations: The Federal rules restrict any use of the information to criminally investigate or prosecute any alcohol or drug abuse patient.[facility] HospitalIn the event this information is protected by the Federal Confidentiality of Alcohol and Drug Abuse Patient Records regulations: The Federal rules restrict any use of the information to criminally investigate or prosecute any alcohol or drug abuse patient.[facility] Reason for Visit (unrecogniz ed section and content) Reason Comments Medication Clarification Reason Comments Information Referral Request Reason Onset Date Comments Refill Request 10/15/2021 Reason Comments F/U 3 Month Reason Comments stomach issues nausea Reason Comments Medication Problem Reason Comments Patient Question Lab Orders Reason Comments 6 Month Exam Reason Comments Results Reason Comments Ear Problem Ringing in both ears since Monday. Reason Comments Dizziness Reason Comments Patient Update Reason Comments ER F/U Reason Comments [facility] referral faxed Reason Comments Release Of Medical Records Reason Comments Diarrhea Reason Comments Fall Reason Comments Dizziness Reason Comments Dizziness Reason Comments Medication Question Reason Comments Nausea Reason Comments Orders Reason Comments Fatigue Reason Comments Fatigue With generalized wea kness Reason Comments Appointment Reason Comments Letter Request Reason Comments Elevate Blood Pressure Reading Reason Comments Med Change Request Reason Comments Follow Up Reason Comments New Patient Reason Comments Results Labs Reason Comments future apts Reason Comments custodial note See fax received on PCP's Desk Reason Comments Medication Request Patient Update Reason Comments Patient Update Care Teams (unrecognized sec tion and content) Lining Ironer Relationship Specialty Start Date End Date Dylan Cruz MD [address] [place] [address] PCP - General Family Practice 11/05/18 Antonio Dacosta [address] [place] [id number] Specialty Landscape Supervisor Cardiology 05/18/18 Desmond James MD [address] [place] [address] Specialty Landscape Supervisor Cardiology 05/18/18 Lining Ironer Relationship Specialty Start Date End Date Dylan Cruz MD [address] [facility] [place] [address] PCP - General Family Practice 11/05/18 Antonio Dacosta [address] [place] [address] Specialty Landscape Supervisor Cardiology 05/18/18 Desmond James MD [address] [place] [address] Specialty Landscape Supervisor Cardiology 05/18/18 Lining Ironer Relationship Specialty Start Date End Date Dylan Cruz MD [address] [facility] [place] [address] PCP - General Family Practice 11/05/18 Antonio Dacosta [address] [place] [address] Specialty Landscape Supervisor Cardiology 05/18/18 Desmond James MD [address] [place] [address] Specialty Landscape Supervisor Cardiology 05/18/18 Lining Ironer Relationship Specialty Start Date End Date Dylan Cruz MD [address] [facility] [place] [address] PCP - General Family Practice 11/05/18 Antonio Dacosta [address] [place] [address] Specialty Landscape Supervisor Cardiology 05/18/18 Desmond James MD [address] [place] [address] Specialty Landscape Supervisor Cardiology 05/18/18 Lining Ironer Relationship Specialty Start Date End Date Dylan Cruz MD [address] [facility] [place] [address] PCP - General Family Medicine 11/05/18 Antonio Dacosta [address] [place] [address] Specialty Landscape Supervisor Cardiology 05/18/18 Desmond James MD [address] [place] [address] Specialty Landscape Supervisor Cardiology 05/18/18 Lining Ironer Relationship Specialty Start Date End Date Dylan Cruz MD [address] [facility] [place] [address] PCP - General Family Medicine 11/05/18 Antonio Dacosta [address] [place] [address] Specialty Landscape Supervisor Cardiology 05/18/18 Desmond James MD [address] [place] [address] Specialty Landscape Supervisor Cardiology 05/18/18 Lining Ironer Relationship Specialty Start Date End Date Dylan Cruz MD [address] [place] [address] PCP - General Family Medicine 11/05/18 Antonio Dacosta [address] [place] [address] Specialty Landscape Supervisor Cardiology 05/18/18 Desmond James MD [address] [place] [address] Specialty Landscape Supervisor Cardiology 05/18/18 Lining Ironer Relationship Specialty Start Date End Date Dylan Cruz MD [address] [facility] [place] [address] PCP - General Family Medicine 11/05/18 Antonio Dacosta [address] [place] [address] Specialty Landscape Supervisor Cardiology 05/18/18 Desmond James MD [address] [place] [address] Specialty Landscape Supervisor Cardiology 05/18/18 Lining Ironer Relationship Specialty Start Date End Date Dylan Cruz MD [address] [place] [address] PCP - General Family Medicine 11/05/18 Antnoio Dacosta [address] [place] [address], [place] [address] Specialty Landscape Supervisor Cardiology 05/18/18 Desmond James MD [address] [place] [address] Specialty Landscape Supervisor Cardiology 05/18/18 Lining Ironer Relationship Specialty Start Date End Date Dylan Cruz MD [address] [facility] [place] [address] PCP - General Family Medicine 11/05/18 Antonio Dacosta [address] [place] [address] Specialty Landscape Supervisor Cardiology 05/18/18 Desmond James MD [address] [place] [address] Specialty Landscape Supervisor Cardiology 05/18/18 Lining Ironer Relationship Specialty Start Date End Date Dylan Cruz MD [address] [facility] [place] [address] PCP - General Family Medicine 11/05/18 Antonio Dacosta [address] [place] [address] Specialty Landscape Supervisor Cardiology 05/18/18 Desmond James MD [address] [place] [address] Specialty Landscape Supervisor Cardiology 05/18/18 Lining Ironer Relationship Specialty Start Date End Date Dylan Cruz MD [address] [facility] [place] [address] PCP - General Family Medicine 11/05/18 Antonio Dacosta [address] [place] [address] Specialty Landscape Supervisor Cardiology 05/18/18 Desmond James MD [address] [place] [address] Specialty Landscape Supervisor Cardiology 05/18/18 Lining Ironer Relationship Specialty Start Date End Date Dylan Cruz MD [address] [facility] [place] [address] PCP - General Family Medicine 11/05/18 Antonio Dacosta [address] [place] [address] Specialty Landscape Supervisor Cardiology 05/18/18 Desmond James MD [address] [place] [address] Specialty Landscape Supervisor Cardiology 05/18/18 Lining Ironer Relationship Specialty Start Date End Date Dylan Cruz MD [address] [facility] [place] [address] PCP - General Family Medicine 11/05/18 Antonio Dacosta [address] [place] [address] Specialty Landscape Supervisor Cardiology 05/18/18 Desmond James MD [address] [place] [address] Specialty Landscape Supervisor Cardiology 05/18/18 Lining Ironer Relationship Specialty Start Date End Date Dylan Cruz MD [address] [facility] [place] [address] PCP - General Family Medicine 11/05/18 Antonio Dacosta [address] [place] [address] Specialty Landscape Supervisor Cardiology 05/18/18 Desmond James MD [address] [place] [address] Specialty Landscape Supervisor Cardiology 05/18/18 Lining Ironer Relationship Specialty Start Date End Date Dylan Cruz MD [address] [facility] [place] [address] PCP - General Family Medicine 11/05/18 Antonio Dacosta [address] [place] [address] Specialty Landscape Supervisor Cardiology 05/18/18 Desmond Jaems MD [address] [place] [address] Specialty Landscape Supervisor Cardiology 05/18/18 Lining Ironer Relationship Specialty Start Date End Date Dylan Cruz MD [address] [facility] [place] [address] PCP - General Family Medicine 11/05/18 Antonio Dacosta [address] [place] [address] Specialty Landscape Supervisor Cardiology 05/18/18 Desmond James MD [address] [place] [address] Specialty Landscape Supervisor Cardiology 05/18/18 Lining Ironer Relationship Specialty Start Date End Date Dylan Cruz MD [address] [place] [address] PCP - General Family Medicine 11/05/18 Antonio Dacosta [address] [place] [address] Specialty Landscape Supervisor Cardiology 05/18/18 Desmond James MD [address] [place] [address] Specialty Landscape Supervisor Cardiology 05/18/18 Lining Ironer Relationship Specialty Start Date End Date Dylan Cruz MD [address] [place] [address] PCP - General Family Medicine 11/05/18 Antonio Dacosta [address] [place] [address] Specialty Landscape Supervisor Cardiology 05/18/18 Desmond James MD [address] [place] [address] Specialty Landscape Supervisor Cardiology 05/18/18 Lining Ironer Relationship Specialty Start Date End Date Dylan Cruz MD [address] [place] [address] PCP - General Family Medicine 11/05/18 Antonio Dacosta [address] [place] [address] Specialty Landscape Supervisor Cardiology 05/18/18 Desmond James MD [address] [place] [address] Specialty Landscape Supervisor Cardiology 05/18/18 Lining Ironer Relationship Specialty Start Date End Date Dylan Cruz MD [address] [place] [address] PCP - General Family Medicine 11/05/18 Antonio Dacosta [address] [place] [address] Specialty Landscape Supervisor Cardiology 05/18/18 Desmond James MD [address] [place] [address] Specialty Landscape Supervisor Cardiology 05/18/18 Lining Ironer Relationship Specialty Start Date End Date Dylan Cruz MD [address] [place] [address] PCP - General Family Medicine 11/05/18 Antonio Dacosta [address] [place] [address] Specialty Landscape Supervisor Cardiology 05/18/18 Desmond James MD [address] [place] [address] Specialty Landscape Supervisor Cardiology 05/18/18 Lining Ironer Relationship Specialty Start Date End Date Dylan Cruz MD [address] [place] [address] PCP - General Family Medicine 11/05/18 Antonio Dacosta [address] [place] [address] Specialty Landscape Supervisor Cardiology 05/18/18 Desmond James MD [address] [place] [address] Specialty Landscape Supervisor Cardiology 05/18/18 Lining Ironer Relationship Specialty Start Date End Date Dylan Cruz MD [address] [place] [address] PCP - General Family Medicine 11/05/18 Antonio Dacosta [address] [place] [address] [place] [phone] Specialty Landscape Supervisor Cardiology 05/18/18 Desmond James MD [address] [place] [address] [place] [phone] Specialty Landscape Supervisor Cardiology 05/18/18 Lining Ironer Relationship Specialty Start Date End Date Dylan Cruz MD [address] [place] [address] PCP - General Family Medicine 11/05/18 Antonio Dacosta [address] [place] [address] [place] [phone] Specialty Landscape Supervisor Cardiology 05/18/18 Desmond James MD [address] [place] [address] [place] [phone] Specialty Landscape Supervisor Cardiology 05/18/18 Lining Ironer Relationship Specialty Start Date End Date Dylan Cruz MD [address] [place] [address] PCP - General Family Medicine 11/05/18 Antonio Dacosta MD [address] [place] [address] [place] [phone] Specialty Landscape Supervisor Cardiology 05/18/18 Desmond James MD [address] [place] [address] [place] [phone] Specialty Landscape Supervisor Cardiology 05/18/18 Lining Ironer Relationship Specialty Start Date End Date Dylan Cruz MD [address] [place] [address] PCP - General Family Medicine 11/05/18 Antonio Dacosta MD [address] [address] Specialty Landscape Supervisor Cardiology 05/18/18 Desmond James MD [address] [place] [address] [place] [phone] Specialty Landscape Supervisor Cardiology 05/18/18 Lining Ironer Relationship Specialty Start Date End Date Dylan Cruz MD [address] [place] [address] PCP - General Family Medicine 11/05/18 Antonio Dacosta MD [address] [facility] [address] [place], [place] [id number] Specialty Landscape Supervisor Cardiology 05/18/18 Desmond James MD [address] [facility] [address] [place] [phone] Specialty Landscape Supervisor Cardiology 05/18/18 FOR RECORDS PERTAINING TO PATIENTS WHO ARE OR HAVE BEEN ENROLLED IN A CHEMICAL DEPENDENCY/SUBSTANCEABUSE PROGRAM, SOME INFORMATION MAY BE OMITTED. This clinical summary was aggregated from multiple sources. Caution should be exercised in using it in the provision of clinical care. This summary normalizes information from multiple sources, and as a consequence, information in this document may materially change the coding, format and clinical context of patient data. In addition, data may be omitted in some cases. CLINICAL DECISIONS SHOULD BE BASED ON THE PRIMARY CLINICAL RECORDS. [employer] [facility]. provides no warranty or guarantee of the accuracy or completeness of information in this document.
--- NOTE | 2023-05-14 21:49 | CT_ITS ---
INDICATION: trauma EXAMINATION: CT CERVICAL SPINE - CT Spine Cervical W/O Contrast Injection TECHNIQUE: Helically acquired images were obtained of the cervical spine. 2D reformatted images were reviewed. A radiation dose optimization technique was used for this scan. IV Contrast dosage and agent: None. COMPARISON: None. FINDINGS: VERTEBRAE: No fracture or acute compression deformity. No discrete lytic or blastic abnormality. Normal alignment. Normal craniocervical junction and cervicothoracic junction. DISCS and SPINAL CANAL: Slight posterior disc osteophyte complex C5-C6 and C6-C7. No critical stenosis. NECK SOFT TISSUES: No prevertebral soft tissue swelling. There is no cervical adenopathy. LUNG APICES: Clear. CT/Spine Cervical without Contras IMPRESSION: No evidence of acute cervical spinal fracture or spondylolisthesis. Mild spondylosis. Electronically Signed: Yvon Heath MD at 23:14 EST ,
--- NOTE | 2023-05-14 21:49 | CT_ITS ---
STUDY: CT BRAIN WITHOUT CONTRAST REASON FOR EXAM: Female, 83 years old. trauma RADIATION DOSAGE (If Supplied By Facility): CTDIvol = ( 44.99 ) mGy, DLP = ( 846.73 ) mGycm TECHNIQUE: Transaxial CT imaging of the brain was performed without administration of intravenous contrast material. Individualized dose optimization techniques were used for this CT. COMPARISON: 04/18/2023 FINDINGS: Normal soft tissue structures. Normal calvarium. There is mild cerebral atrophy with widening of the extra-axial spaces and ventricular dilatation. There are areas of decreased attenuation within the white matter tracts of the supratentorial brain, consistent with microvascular disease changes. Normal basal ganglia and thalami. Normal brainstem. Normal cerebellum. There is no intracranial hemorrhage. There are no findings of an acute ischemic infarction. Normal visualized paranasal sinuses. CT/Brain/Head without Contrast IMPRESSION: Chronic involutional changes of the brain. No change or acute abnormality. Electronically Signed: Santiago Marquez MD at 22:50 EST ,
[2023-05-14] MEDS: Diphth,Pertuss(Acell),Tet Vac 0.5 ML Vial IM (23:58)
[2023-05-15 00:28] LABS: Bacteria 0 SEEN /hpf (None Seen); Mucous, Urine 0 SEEN /hpf (<or=2+); Red Blood Cells-Urine 0 SEEN /hpf (0-5); Squamous Epithelial Cells - UA 0 SEEN /hpf (5-10); White Blood Cells 0 SEEN /hpf (0-5)
[2023-05-15 00:36] LABS: Glucose, Dipstick Normal (Normal); Ketone-Dipstick Negative (Negative); Leukocyte Esterase-Dipstick Negative /ul (Negative); Nitrite-Dipstick Negative (Negative); Occult Blood-Urine 10 /ul (Negative); Protein-Dipstick 30 mg/dl (Negative); Urine Urobilinogen 4 mg/dl (Normal)
--- NOTE | 2023-05-15 00:36 | EDS_ITS ---
HPI HPI - Fall History of Present Illness Chief Complaint: Fall Informant: patient and EMS Narrative Narrative: Reportedly the patient slipped in the bathroom striking the back of her head. Nursing reports several recent falls.0 family wonders if she has a UTI. Patient has Parkinson's and apparent dementia. Patient from [place]. Limited information came with her. She cannot provide me much history from a medical standpoint. Patient states she has a history of Parkinson's Tetanus Immunization: Unknown [facility] Medical History Abdominal pain Abnormal stress test Acute respiratory failure with hypoxia BRENT (acute kidney injury) Anemia Atherosclerotic heart disease of [place] coronary artery without angina pectoris Back pain Bloating Cerebrovascular disease Chest pain CHF (congestive heart failure) Chronic low back pain Chronic systolic heart failure CKD (chronic kidney disease) stage 3, GFR 30-59 ml/min Contusion of right hand Contusion of right knee DDD (degenerative disc disease), lumbar Diaphragmatic hernia without mention of obstruction or gangrene Difficulty balancing Dizziness Dyspnea Esophagitis Fibromyalgia Gait instability Laceration of lip without foreign body Limb weakness Non-STEMI (non-ST elevated myocardial infarction) Other chest pain 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 Polyneuropathy Psychotic affective disorder Pure hypercholesterolemia Segmental and somatic dysfunction of cervical region Segmental and somatic dysfunction of lumbar region Segmental and somatic dysfunction of pelvic region Segmental and somatic dysfunction of pelvic region Segmental and somatic dysfunction of thoracic region Shoulder pain SOB (shortness of breath) SVT (supraventricular tachycardia) Takotsubo cardiomyopathy Tooth fracture Unspecified fall, initial encounter Unspecified hemorrhoids Wrist pain, left Home Medications cholecalciferol (vitamin D3) 50 mcg (2,000 unit) tablet 50 mcg PO DAILY VITAMIN 07/27/21 [History Last Taken Unknown] levothyroxine 50 mcg tablet 50 mcg PO DAILY THYROID 07/27/21 [History Last Taken Unknown] multivitamin with minerals-folic acid 120 mcg chewable tablet (Centrum Adult 50 Plus Fresh-Fruity) 1 tab PO DAILY VITAMIN 04/20/22 [History Last Taken Unknown] amlodipine 2.5 mg tablet 2.5 mg PO DAILY BLOOD PRESSURE #90 tabs 10/17/22 [Rx Last Taken Unknown] lisinopril 10 mg tablet 10 mg PO DAILY BLOOD PRESSURE #90 tabs 10/17/22 [Rx Last Taken Unknown] trazodone 50 mg tablet 25 mg PO QHS 03/31/23 [History Last Taken Unknown] aripiprazole 5 mg tablet (Abilify) 5 mg PO DAILY 04/18/23 [History Last Taken Unknown] gabapentin 100 mg capsule 100 mg PO BID 04/18/23 [History Last Taken Unknown] lorazepam 0.5 mg tablet (Ativan) 0.5 mg PO BID 04/18/23 [History Last Taken Unknown] Allergy/AdvReac Type Severity Reaction Status Date / Time codeine Allergy Severe Nausea Verified 05/14/23 21:16 oxycodone HCl Allergy Severe Nausea Verified 05/14/23 21:16 [From OxyContin] celecoxib [From Celebrex] Allergy Intermediate Other Verified 05/14/23 21:16 Family History Father , age 91 Cancer Hypertension Aunt Diabetes Breast cancer 2 aunts Grandfather Diabetes Parkinson's disease Mother Hypertension Surgical History History of appendectomy History of cataract surgery History of section History of hysterectomy History of left heart catheterization (09/15/17) History of open reduction and internal fixation (ORIF) procedure History of total left knee replacement Social History Smoking Status: Never smoker second hand exposure: No alcohol intake: never substance use type: does not use caffeine: Yes Type: tea Number of servings: 1 seatbelt use: always ROS ROS ED Review of Systems ROS Unobtainable: due to mental status EXAM Physical Exam Const Vital Signs: 05/14/23 21:07 05/14/23 21:10 Temperature 98.1 F Temperature Source Temporal Pulse Rate 87 Respiratory Rate 16 Respiratory Effort Normal Non-Labored Respiratory Depth Normal Respiratory Pattern Normal Blood Pressure 131/58 H Blood Pressure Mean 82 Pulse Ox 95 94 Oxygen Delivery Method Room Air Room Air Positive well nourished and well developed General Appearance ED: well developed HEENT Reports normocephalic and moist mucous membranes HEENT Narrative: There is a 1 cm vertical laceration to the occiput scalp. No active bleeding. No palpable bony depressions. Eyes PERRL and EOMs intact bilaterally Neck full ROM, no lymphadenopathy, supple and no JVD Resp normal respiratory effort and clear to auscultation bilaterally Cardio regular rate, regular rhythm and no murmurs GI normal to inspection, nondistended, normoactive bowel sounds and non-tender Palpation: soft Back/Spine no CVA tenderness and normal ROM Extremity normal to inspection General Extremety ED: Negative for edema General Extremity: Negative for edema Neuro CN's II-XII intact bilaterally Sensorium / Orientation: alert, oriented to person and oriented to place; Negative for oriented to time Motor Exam: strength 5/5 throughout Psych mental status grossly normal Mood & Affect: Negative for depressed or tearful Skin no rashes or lesions noted and no wounds MDM MDM MDM Narrative Medical decision making narrative: CT the brain and cervical spine were negative for fracture. These were also negative for hemorrhage. Wound was locally anesthetized using 1% lidocaine. Washed with Shur-Clens irrigated and explored. It was closed using a total of 3 simple erupted 3-0 Ethilon sutures. Patient was administered Adacel for tetanus update we will check a UA. Urinalysis is negative for overt infection. Will get the patient up. Plan will be discharge History & Record Review Discussion w/independent historian: Patient Lab Data Attestation: I reviewed the patient's lab results. Labs: Laboratory Results - last 24 hr 05/15/23 00:15 Urine Color Yellow Urine Clarity Clear Urine pH 6.0 Ur Specific [place] 1.020 Urine Protein 30 H Urine Glucose (UA) Normal Urine Ketones Negative Urine Occult Blood 10 H Urine Nitrite Negative Urine Bilirubin 1 H Urine Urobilinogen 4 H Ur Leukocyte Esterase Negative Urine RBC 0 SEEN Urine WBC 0 SEEN Ur Squamous Epith Cells 0 SEEN Urine Bacteria 0 SEEN Urine Mucus 0 SEEN Radiography Diagnostic Testing: Clinical Impression(s) from Imaging Studies Brain CT 05/14/23 21:49 IMPRESSION: Chronic involutional changes of the brain. No change or acute abnormality. Electronically Signed: Santiago Marquez MD at 22:50 EST , Cervical Spine CT 05/14/23 21:49 IMPRESSION: No evidence of acute cervical spinal fracture or spondylolisthesis. Mild spondylosis. Electronically Signed: Yvon Heath MD at 23:14 EST , Discharge Plan Triage Chief Complaint: Fall ED Provider: Adin Cadet Dx/Rx/DC Orders Clinical Impression: Head injury, Fall, Laceration of scalp, Parkinson's disease Instructions: ED Laceration, All Closures Prescriptions: No Action levothyroxine 50 mcg tablet 50 mcg PO DAILY cholecalciferol (vitamin D3) 50 mcg (2,000 unit) tablet 50 mcg PO DAILY multivit with min-folic acid [Centrum Adult 50 Fresh-Fruity] 120 mcg tablet,chewable 1 tab PO DAILY lisinopril 10 mg tablet 10 mg PO DAILY Qty: 90 3RF amlodipine 2.5 mg tablet 2.5 mg PO DAILY Qty: 90 3RF trazodone 50 mg tablet 25 mg PO QHS aripiprazole [Abilify] 5 mg tablet 5 mg PO DAILY lorazepam [Ativan] 0.5 mg tablet 0.5 mg PO BID gabapentin 100 mg capsule 100 mg PO BID Primary Care Provider: Moy Cruz Referrals: Moy Cruz MD [Primary Care Provider] - 5 Days for suture removal Disposition Disposition: Home, Self Care
[2023-05-15 00:45] LABS: Color, Urine Yellow (Yellow); Urine Bilirubin Dipstick 1 mg/dL (Negative); Urine Clarity Clear (Clear)
--- NOTE | 2023-05-15 01:28 | ED.RN ---
Called [facility] and spoke with Vivi, she was updated on patients care and results. She states patient is good to go back to them. We will set up transport.
[2023-05-15 03:52] VITALS: BP 114/78
--- NOTE | 2023-05-15 04:17 | ED.RN ---
ATTEMPTED TO CALL REPORT TO [facility] PREVIOUSLY X2 NO ANSWER. [facility] AT PT'S BEDSIDE TO TRANSPORT TO [facility].
== END 2023-05-15 04:19 | disposition home or self-care (01) ==
PROVIDERS: Emergency Provider Emergency Medicine; PCP Family Medicine; Visit Provider Emergency Medicine
DX: S01.01XA Laceration without foreign body of scalp, initial encounter (principal); F02.80 Dementia in other diseases classified elsewhere, unspecified severity, without behavioral disturbance, psychotic disturbance, mood disturbance, and anxiety; I50.22 Chronic systolic (congestive) heart failure; N18.30 Chronic kidney disease, stage 3 unspecified; W01.10XA Fall on same level from slipping, tripping and stumbling with subsequent striking against unspecified object, initial encounter; Z23 Encounter for immunization; G20.A1 Parkinson's disease without dyskinesia, without mention of fluctuations; G89.29 Other chronic pain; I25.10 Atherosclerotic heart disease of native coronary artery without angina pectoris; Z79.890 Hormone replacement therapy; Z79.899 Other long term (current) drug therapy
CPT/HCPCS: 12001; 70450; 72125; 81001; 90471; 90715; 99284; P9612